=== PATIENT | female | born 1945 | race Caucasian/White ===

== ENCOUNTER → 2019-12-05 13:03 | Outpatient (BNVA) | payer MEDICARE, OTHER, SELFPAY | PROVIDERS: Family Provider Electrodiagnostic Medicine; PCP Nurse Practitioner; Visit Provider Specialist | DX: G47.33 Obstructive sleep apnea (adult) (pediatric) (principal); R41.89 Other symptoms and signs involving cognitive functions and awareness; Z86.73 Personal history of transient ischemic attack (TIA), and cerebral infarction without residual deficits; G40.309 Generalized idiopathic epilepsy and epileptic syndromes, not intractable, without status epilepticus; F03.90 Unspecified dementia, unspecified severity, without behavioral disturbance, psychotic disturbance, mood disturbance, and anxiety | CPT/HCPCS: 96116; 99215 ==

== ENCOUNTER → 2019-12-07 08:04 | Outpatient (BNVA) | payer MEDICARE, OTHER, SELFPAY | PROVIDERS: Family Provider Electrodiagnostic Medicine; PCP Nurse Practitioner; Visit Provider Specialist | DX: G40.909 Epilepsy, unspecified, not intractable, without status epilepticus (principal); G40.309 Generalized idiopathic epilepsy and epileptic syndromes, not intractable, without status epilepticus | CPT/HCPCS: 95816 ==

== ENCOUNTER 2019-12-08 12:38 | Emergency (ER) | payer MEDICARE, OTHER, SELFPAY ==
--- NOTE | 2019-12-08 12:39 | ED_ITS ---
Entered by Mady Bishop, acting as scribe for HPI - Altered Mental Status General: Chief Complaint: Neuro Symptoms/Deficit Stated Complaint: STROKE ALERT Time Seen by Provider: 12/08/19 12:40 Source: EMS Mode of arrival: EMS Limitations: language barrier and altered mental status History of Present Illness: HPI narrative: 73 yo female presents with stroke like symptoms, unable to talk but able to move all extremities. 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 pt has a hx of seizures. Initially we are unable to get any history from the patient history was derived from all records and then later from family members who were contacted and came to the emergency room. He states she had a similar episode a few months ago was sent to [facility] and while there she also was intubated after having a seizure. MD complaint: altered mental status, confusion, weakness and other (not s peaking) Onset (ago): minute(s) (30 minutes ago) Timing confirmed by: other (real estate officer) Severity: moderate Consistency of symptoms: Getting Worse Associated symptoms: Reports no associated symptoms Review of Systems General: Reports: ROS unobtainable due to medical condition and ROS unobtainable due to mental status PFS ED PFSH: Social History (Updated 12/08/19 @ 09:59 by Judy Goode RN) Smoking and tobacco status: unknown if ever smoked Physical Exam HENMT: COMMON NORMALS: normocephalic, head/scalp atraumatic, hearing grossly normal bilaterally, external ears normal, EAC's normal, TM's normal bilaterally, nasal mucous membranes and turbinates normal, moist oral mucous membranes and oropharynx normal HEAD & SCALP: normocephalic and atraumatic NOSE: nasal mucous membranes and turbinates normal EXTERNAL EAR: Yes external ears normal EXTERNAL AUDITORY CANAL: EAC's normal TYMPANIC MEMBRANE: TM's normal bilaterally Eye: COMMON NORMALS: PERRL, conjunctivae normal and no scleral icterus CONJUNCTIVA: Yes conjunctivae normal PUPIL: Yes PERRL Neck/C-Spine: COMMON NORMALS: no lymphadenopathy, supple and no JVD Lymph: LYMPHATIC: no lymphadenopathy noted and no lymphedema noted Resp: COMMON NORMALS: normal respiratory effort, no retractions, no use of accessory muscles and clear to auscultation bilaterally AUSCULTATION: clear to auscultation bilaterally Cardio: COMMON NORMALS: no JVD, regular rate, regular rhythm and no murmurs RATE: regular rate RHYTHM: regular rhythm GI: COMMON NORMALS: soft to palpation and no hepatosplenomegaly AUSCULTATION: Yes normoactive bowel sounds PALPATION: Yes soft, No tender, No guarding and Yes no hepatosplenomegaly Extremity: COMMON NORMALS: normal to inspection, normal capillary refill, no clubbing, cyanosis or edema and no calf tenderness Skin: COMMON NORMALS: no rashes or lesions noted GENERAL SKIN EXAM: no rashes or lesions noted Procedures Intubation sedative: Etomidate Mg Given: 30 paralytic: Succinylcholine Mg Given: 120 Laryngoscope: Gerard ET Tube Size: 8.5 ET Tube Uncuffed: No Tube Secured Depth (cm): 24 Tube Secured Location: teeth Tube Placement Confirmation: visualized tube passing through cords, equal breath sounds bilaterally and no breath sounds over epigastrium Patient Tolerated Procedure: well Intubation Complications: none Course ED course: Initially patient was brought in on a stroke alert initial scoring put her at a stroke score of 8-9 it was difficult to fully assess because she was not completely nonverbal. I reviewed her history found that she was on Eliquis and had previously had a stroke. CT showed a large area of old stroke nothing new no acute bleeds. While we are further assessing the patient and getting her stabilized she had a seizure. She was given 2 mg of Ativan and started on Keppra. During that time we also found in the old records she had been evaluated yesterday for seizures including an EEG. After the seizure patient had sonorous respirations ABG was done and pH was 7-3 before the results of the ABG because of her decreasing respiratory rate and difficulty maintaining an airway she was electively intubated using RSI. No complications intubation ABG showed a pH of 7-3 primarily respiratory acidosis. Patient did have one other seizure after that she was given more Ativan and also will increase her propofol which was started immediately after her intubation. Considered adding Dilantin but patient had just finished receiving the Keppra at that point. Patient also was in A. fib with rapid ventricular response we did for a time however on Cardizem however she came hypotensive we turned her Cardizem off her heart rate stayed in the 100-1 10 range during that time. Discussed with the family recommend transport by air ambulance to tertiary care center. She will need ICU along with neurology and likely need continuous EEG. None of these services are available at [facility]. Vital Signs: Vital signs: Vital Signs Pulse Rate 126 H 12/08/19 16:22 Respiratory Rate 16 12/08/19 16:22 Blood Pressure 111/65 12/08/19 16:22 Pulse Oximetry 99 12/08/19 16:22 MDM - Altered Mental Status Lab Data: Labs: Lab Results 12/08/19 12/08/19 12/08/19 Range/Units 12:47 13:11 13:11 WBC 12.6 H (4.0-10.0) 10^3/ uL RBC 4.29 (4.1-5.3) 10^6/u L Hgb 12.9 (11.5-15.3) g/dL Hct 43.0 (37.0-47.0) % MCV 100.2 H (81-99) fL MCH 30.1 (28.0-34.0) pg MCHC 30.0 (30.0-36.0) g/dL RDW 15.0 (12.1-15.1) % Plt Count 264 (130-400) 10^3/c mm MPV 11.1 H (7.4-10.4) fL Neut % (Auto) 47.7 % Lymph % (Auto) 42.2 % Bates % (Auto) 8.0 % Eos % (Auto) 1.0 % Baso % (Auto) 0.4 % Neut # (Auto) 6.0 (1.8-7.7) 10^3/u L Lymph # (Auto) 5.3 H (0.8-4.8) 10^3/u L Bates # (Auto) 1.0 H (0.2-0.9) 10^3/u L Eos # (Auto) 0.1 (0.0-0.8) 10^3/u L Baso # (Auto) 0.1 (0.0-0.1) 10^3/u L Nucleated RBC % (a uto) 0 % Nucleated RBCs # 0.0 /100WBC PT 15.60 H (10.5-13.3) SECO NDS INR 1.20 (0.8-1.2) APTT 26.1 (23.9-36.7) SECO NDS Specimen Type Sample Site ABG pH (7.35-7.45) ABG pCO2 (35-45) mmHg ABG pO2 (80.0-100.0) mmH g ABG HCO3 (22-26) mmol/L ABG O2 Saturation ABG Base Excess (-2.0-2.0) mmol/ L Bk Test A-a O2 Gradient (5-10) mmHg Hematocrit (37-47) % Hgb O2 Saturation (95-100) % Carboxyhemoglobin (0.4-20.1) %THgb Methemoglobin (0.4-1.5) % Total Hemoglobin (12-16) g/dL Ionized Calcium (1.1-1.4) mmol/L Respiration Rate % O2 Delivery Device FiO2 % Tidal Volume PEEP cmH20 Flight Steward ID Sodium (136-145) mmol/L Potassium (3.5-5.1) mmol/L Chloride (98-107) mmol/L Carbon Dioxide (22-29) mmol/L Anion Gap (5-19) BUN (8-23) mg/dL Creatinine (0.5-0.9) mg/dL Glucose (65-115) mg/dL POC Glucose 246 (70-110) mg/dL Calcium (8.5-10.5) mg/dL Total Bilirubin (0.15-1.2) mg/dL AST (0-32) U/L ALT (0-33) U/L Alkaline Phosphata se (35-105) IU/L Total Protein (6.6-8.7) g/dL Albumin (3.5-5.2) g/dL Globulin (1.3-4.6) g/dL Urine Color (Yellow) Urine Appearance (CLEAR) Urine pH (5-7) Ur Specific Gravit y (1.005-1.030) Urine Protein (Negative) Urine Glucose (UA) (Normal) Urine Ketones (Negative) Urine Occult Blood (Negative) Urine Nitrate (Negative) Urine Bilirubin (NEGATIVE) Urine Urobilinogen (Negative) mg/dL Ur Leukocyte Nadya ase (Negative) Urine RBC (0-2) /hpf Urine WBC (0-5) /hpf Ur Squamous Epith Cells (0-5) Urine Bacteria (NONE) Urine Mucus Urine Opiates Scre en (Negative) ng/mL Ur Barbiturates Sc reen (Negative) ng/mL Ur Phencyclidine S crn (Negative) ng/mL Ur Amphetamines Sc reen (Negative) ng/mL U Benzodiazepines Scrn (Negative) ng/mL Urine Cocaine Scre en (Negative) ng/mL U Marijuana (THC) Screen (Negative) ng/mL 12/08/19 12/08/19 12/08/19 Range/Units 13:11 13:40 13:40 WBC (4.0-10.0) 10^3/ uL RBC (4.1-5.3) 10^6/u L Hgb (11.5-15.3) g/dL Hct (37.0-47.0) % MCV (81-99) fL MCH (28.0-34.0) pg MCHC (30.0-36.0) g/dL RDW (12.1-15.1) % Plt Count (130-400) 10^3/c mm MPV (7.4-10.4) fL Neut % (Auto) % Lymph % (Auto) % Bates % (Auto) % Eos % (Auto) % Baso % (Auto) % Neut # (Auto) (1.8-7.7) 10^3/u L Lymph # (Auto) (0.8-4.8) 10^3/u L Bates # (Auto) (0.2-0.9) 10^3/u L Eos # (Auto) (0.0-0.8) 10^3/u L Baso # (Auto) (0.0-0.1) 10^3/u L Nucleated RBC % (a uto) % Nucleated RBCs # /100WBC PT (10.5-13.3) SECO NDS INR (0.8-1.2) APTT (23.9-36.7) SECO NDS Specimen Type Arterial Sample Site Radial, left ABG pH 7.24 L (7.35-7.45) ABG pCO2 54.9 H (35-45) mmHg ABG pO2 138.0 H (80.0-100.0) mmH g ABG HCO3 23.4 (22-26) mmol/L ABG O2 Saturation 98.9 ABG Base Excess -4.6 L (-2.0-2.0) mmol/ L Bk Test Pos A-a O2 Gradient 506.5 H (5-10) mmHg Hematocrit 39.0 (37-47) % Hgb O2 Saturation 96.9 (95-100) % Carboxyhemoglobin 1.0 (0.4-20.1) %THgb Methemoglobin 1.0 (0.4-1.5) % Total Hemoglobin 12.7 (12-16) g/dL Ionized Calcium 1.2 (1.1-1.4) mmol/L Respiration Rate 16.0 % O2 Delivery Device Vent FiO2 100.0 % Tidal Volume 0.45 PEEP 8.0 cmH20 Flight Steward ID cak Sodium 141 142.0 (136-145) mmol/L Potassium 3.5 3.8 (3.5-5.1) mmol/L Chloride 95 L (98-107) mmol/L Carbon Dioxide 23 (22-29) mmol/L Anion Gap 26.5 H (5-19) BUN 18 (8-23) mg/dL Creatinine 0.9 (0.5-0.9) mg/dL Glucose 290 H 271.0 H (65-115) mg/dL POC Glucose (70-110) mg/dL Calcium 10.4 (8.5-10.5) mg/dL Total Bilirubin 0.4 (0.15-1.2) mg/dL AST 29 (0-32) U/L ALT 52 H (0-33) U/L Alkaline Phosphata se 94 (35-105) IU/L Total Protein 7.7 (6.6-8.7) g/dL Albumin 4.6 (3.5-5.2) g/dL Globulin 3.1 (1.3-4.6) g/dL Urine Color Yellow (Yellow) Urine Appearance Clear (CLEAR) Urine pH 5.0 (5-7) Ur Specific Gravit y 1.015 (1.005-1.030) Urine Protein Trace (Negative) Urine Glucose (UA) Trace H (Normal) Urine Ketones Negative (Negative) Urine Occult Blood Neg (Negative) Urine Nitrate Negative (Negative) Urine Bilirubin Neg (NEGATIVE) Urine Urobilinogen Norm (Negative) mg/dL Ur Leukocyte Nadya ase Negative (Negative) Urine RBC None (0-2) /hpf Urine WBC None (0-5) /hpf Ur Squamous Epith Cells 0-4 H (0-5) Urine Bacteria Trace (NONE) Urine Mucus Trace Urine Opiates Scre en (Negative) ng/mL Ur Barbiturates Sc reen (Negative) ng/mL Ur Phencyclidine S crn (Negative) ng/mL Ur Amphetamines Sc reen (Negative) ng/mL U Benzodiazepines Scrn (Negative) ng/mL Urine Cocaine Scre en (Negative) ng/mL U Marijuana (THC) Screen (Negative) ng/mL 12/08/19 12/08/19 Range/Units 13:40 14:57 WBC (4.0-10.0) 10^3/ uL RBC (4.1-5.3) 10^6/u L Hgb (11.5-15.3) g/dL Hct (37.0-47.0) % MCV (81-99) fL MCH (28.0-34.0) pg MCHC (30.0-36.0) g/dL RDW (12.1-15.1) % Plt Count (130-400) 10^3/c mm MPV (7.4-10.4) fL Neut % (Auto) % Lymph % (Auto) % Bates % (Auto) % Eos % (Auto) % Baso % (Auto) % Neut # (Auto) (1.8-7.7) 10^3/u L Lymph # (Auto) (0.8-4.8) 10^3/u L Bates # (Auto) (0.2-0.9) 10^3/u L Eos # (Auto) (0.0-0.8) 10^3/u L Baso # (Auto) (0.0-0.1) 10^3/u L Nucleated RBC % (a uto) % Nucleated RBCs # /100WBC PT (10.5-13.3) SECO NDS INR (0.8-1.2) APTT (23.9-36.7) SECO NDS Specimen Type Arterial Sample Site Radial, left ABG pH 7.29 L (7.35-7.45) ABG pCO2 52.4 H (35-45) mmHg ABG pO2 71.4 L (80.0-100.0) mmH g ABG HCO3 24.9 (22-26) mmol/L ABG O2 Saturation 91.6 ABG Base Excess -2.3 L (-2.0-2.0) mmol/ L Bk Test Pos A-a O2 Gradient 362.9 H (5-10) mmHg Hematocrit 36.2 L (37-47) % Hgb O2 Saturation 89.6 L (95-100) % Carboxyhemoglobin 1.2 (0.4-20.1) %THgb Methemoglobin 1.0 (0.4-1.5) % Total Hemoglobin 11.8 L (12-16) g/dL Ionized Calcium 1.2 (1.1-1.4) mmol/L Respiration Rate 14.0 % O2 Delivery Device Vent FiO2 70.0 % Tidal Volume 0.45 PEEP 8.0 cmH20 Flight Steward ID amh Sodium 141.0 (136-145) mmol/L Potassium 3.5 (3.5-5.1) mmol/L Chloride (98-107) mmol/L Carbon Dioxide (22-29) mmol/L Anion Gap (5-19) BUN (8-23) mg/dL Creatinine (0.5-0.9) mg/dL Glucose 269.0 H (65-115) mg/dL POC Glucose (70-110) mg/dL Calcium (8.5-10.5) mg/dL Total Bilirubin (0.15-1.2) mg/dL AST (0-32) U/L ALT (0-33) U/L Alkaline Phosphata se (35-105) IU/L Total Protein (6.6-8.7) g/dL Albumin (3.5-5.2) g/dL Globulin (1.3-4.6) g/dL Urine Color (Yellow) Urine Appearance (CLEAR) Urine pH (5-7) Ur Specific Gravit y (1.005-1.030) Urine Protein (Negative) Urine Glucose (UA) (Normal) Urine Ketones (Negative) Urine Occult Blood (Negative) Urine Nitrate (Negative) Urine Bilirubin (NEGATIVE) Urine Urobilinogen (Negative) mg/dL Ur Leukocyte Nadya ase (Negative) Urine RBC (0-2) /hpf Urine WBC (0-5) /hpf Ur Squamous Epith Cells (0-5) Urine Bacteria (NONE) Urine Mucus Urine Opiates Scre en Negative (Negative) ng/mL Ur Barbiturates Sc reen Negative (Negative) ng/mL Ur Phencyclidine S crn Negative (Negative) ng/mL Ur Amphetamines Sc reen Negative (Negative) ng/mL U Benzodiazepines Scrn Negative (Negative) ng/mL Urine Cocaine Scre en Negative (Negative) ng/mL U Marijuana (THC) Screen Negative (Negative) ng/mL Imaging Data^: CT Head: Radiologist's impression: [address] [address] [address] Scan Report Signed Patient: Finn Goode #: [id number] : 8Acct#:[id number] Age/Sex: 73 / FADM Date: 12/08/19 Loc: ERRoom/Bed: Attending Dr: Ordering Provider/Ordering MD: Joe Lofton DO Date of Service: 12/08/19 Procedure(s): CT head wo con* [id number] Accession Number(s): [id number] Report Number: [id number] WS: [id number] CT HEAD NONCONTRAST HISTORY: CVA TECHNIQUE: Contiguous axial imaging performed through the brain in 2.5 mm imaging. Bone and soft tissue windows. Sagittal and coronal reformats reviewed. All CT scans at [facility] use at least one of these dose optimization techniques: automated exposure control; mA and/or kV adjustment per patient size (includes targeted exams where dose is matched to clinical indication); or iterative reconstruction. DLP: 818.05 mGy-cm. COMPARISON: 10/03/2019 No acute intracranial hemorrhage, midline shift or mass effect. Large prior LEFT parietal infarct with encephalomalacia. Additional smaller chronic infarct in the RIGHT cerebellum. Ventricles: Normal size with no hydrocephalus. No inferior displacement of cerebellar tonsils. Paranasal sinuses: As visualized are clear. Mastoid air cells: Well pneumatized. Calvarium and scalp: Hyperostosis frontalis interna. Notified Joe Lofton DO at 12/08/2019 12:[address]/CT head wo con* [id number] IMPRESSION: 1. No acute intracranial hemorrhage or edema. 2. Remote large LEFT parietal and smaller RIGHT cerebellar infarcts. Dictated By:Jelly Salamanca DO Signed By:Jelly Salamanca DOSigned Date/Time:12/08/19 1253 Critical Care Time Critical Care Time: Critical Care Time: Yes Total Critical Care Time: 60 Attestation: This case had a high probability of a clinically significant, sudden, or life threatening deterioration of this patient's condition which required my full and direct attention, intervention and personal management. Discharge Plan Discharge Patient Disposition: Transfer to ED Clinical Impression: Generalized seizure disorder, Severe obstructive sleep apnea, Cerebrovascular accident Prescriptions: No Action Eliquis 5 mg tablet 5 mg PO BID RF: 0 diltiazem HCl [Cardizem CD] 120 mg capsule,extended release 24hr 120 mg PO QAM RF: 0 Advair HFA 115-21 mcg/actuation HFA aerosol inhaler 2 puff INHALATION Q12H RF: 0 lisinopril 10 mg tablet 10 mg PO DAILY RF: 0 omeprazole 20 mg capsule,delayed release(DR/EC) 20 mg PO DAILY RF: 0 digoxin 62.5 mcg (0.0625 mg) tablet 125 mcg PO DAILY RF: 0 hydrochlorothiazide 25 mg tablet 25 mg PO DAILY RF: 0 potassium gluconate 595 mg (99 mg) tablet 595 mg PO DAILY RF: 0 aspirin [Adult Low Dose Aspirin] 81 mg tablet,delayed release (DR/EC) 81 mg PO DAILY RF: 0 biotin 5 mg capsule 5 mg PO DAILY RF: 0 prenat.vits,migdalia,[id number] Tablet 1 tab PO DAILY RF: 0 albuterol sulfate [Ventolin HFA] 90 mcg/actuation HFA aerosol inhaler 2 puff INHALATION Q6H PRN (Reason: Shortness Of Breath) RF: 0 metoprolol tartrate 25 mg tablet 50 mg PO BID Qty: 120 RF: 1 escitalopram oxalate [Lexapro] 10 mg tablet 10 mg PO DAILY RF: 0 alprazolam 0.25 mg tablet 0.25 mg PO BID RF: 0 levothyroxine 150 mcg tablet 150 mcg PO DAILY RF: 0 metformin 1,000 mg tablet extended release 24hr 1,000 mg PO BID RF: 0 glimepiride 4 mg tablet 4 mg PO QAM RF: 0 simvastatin 40 mg tablet 40 mg PO DAILY RF: 0 (DME) BIPAP MACHINE Qty: 1 RF: 0 (DME) BIPAP MASK Qty: 1 RF: 2 (DME) BIPAP SUPPLIES Qty: 1 RF: 2 Referrals: Milton Rodriguez, [Primary Care Provider] - Interventions: ED Discharge Assessment Last Done: 12/08/19 16:22 Discharge Date/Time: 12/08/19 17:05 Coding Level of Care Code ED Central Office Supervisor for Chg Fwd The documentation recorded by the Dario tsai Bridget Annette, accurately reflects the service I personally performed and the decisions made by Rolly alexis Curtis L, DO Dec 08, 2019 12:38
--- NOTE | 2019-12-08 12:43 | CT_ITS ---
WS: [id number] CT HEAD NONCONTRAST HISTORY: CVA TECHNIQUE: Contiguous axial imaging performed through the brain in 2.5 mm imaging. Bone and soft tiss ue windows. Sagittal and coronal reformats reviewed. All CT scans at [facility] use at ast one of these dose optimization techniques: automated exposure control; mA and/or kV adjustment pe r patient size (includes targeted exams where dose is matched to clinical indication); or iterative r econstruction. DLP: 818.05 mGy-cm. COMPARISON: 10/03/2019 No acute intracranial hemorrhage, midline shift or mass effect. Large prior LEFT parietal infarct with encephalomalacia. Additional smaller chronic infarct in the RI GHT cerebellum. Ventricles: Normal size with no hydrocephalus. No inferior displacement of cerebellar tonsils. Paranasal sinuses: As visualized are clear. Mastoid air cells: Well pneumatized. Calvarium and scalp: Hyperostosis frontalis interna. Notified Joe Lofton DO at 12/08/2019 12:[address]/CT head wo con* [id number] IMPRESSION: 1. No acute intracranial hemorrhage or edema. 2. Remote large LEFT parietal and smaller RIGHT cerebellar infarcts.
[2019-12-08 12:44] VITALS: BP 173/140; PULSE 121; RESP 18; O2SAT 85
[2019-12-08 12:54] VITALS: O2SAT 96
[2019-12-08 13:00] LABS: Glucose Point of Care 246 mg/dL (70-110)
--- NOTE | 2019-12-08 13:02 | ECG_ITS ---
Measurements Intervals [place] Rate: 128 P: GA: 0 QRS: 59 QRSD: 100 T: -82 QT: 293 QTc: 428 ATRIAL FLUTTER/TACHYCARDIA WITH RAPID VENTRICULAR RESPONSE ANTEROSEPTAL MYOCARDIAL INFARCTION , OF INDETERMINATE AGE [40+ ms Q WAVE IN V1-V4] MODERATE T-WAVE ABNORMALITY, CONSIDER INFERIOR ISCHEMIA [-0.1+ mV T WAVE IN II/ II/aVF] INTERPRETATION BASED ON A DEFAULT AGE OF 40 YEARS Compared to ECG 10/03/2019 01:01:56 Myocardial infarct finding now present T-wave abnormality now present Possible ischemia now present Atrial fibrillation no longer present ST (T wave) deviation no longer present Electronically Signed On 12-08-2019 20:48:02 MANAGER OF EMPLOYEE RELATIONS by Oanh Caballero M.D. [email or web address]
[2019-12-08] MEDS: LORazepam 2 mg/mL INJ 1 mL (13:04)
[2019-12-08] MEDS: succinylcholine 20 mg/mL SDV 10mL 120 MG IVP (13:21)
[2019-12-08 13:24] LABS: Basophils # 0.1 10^3/uL (0.0-0.1); Basophils % 0.4 %; Eosinophils # 0.1 10^3/uL (0.0-0.8); Hemoglobin 12.9 g/dL (11.5-15.3); Lymphocytes # 5.3 10^3/uL (0.8-4.8); Lymphocytes % 42.2 %; Mean Corpuscular Hemoglobin 30.1 pg (28.0-34.0); Mean Corpuscular Volume 100.2 fL (81-99); Mean Platelet Volume 11.1 fL (7.4-10.4); Neutrophils % 47.7 %; Nucleated Red Blood Cells % 0 %; Platelet Count 264 10^3/cmm (130-400); Red Blood Count 4.29 10^6/uL (4.1-5.3); White Blood Count 12.6 10^3/uL (4.0-10.0)
[2019-12-08 13:33] LABS: Partial Thromboplastin Time 26.1 SECONDS (23.9-36.7)
[2019-12-08 13:38] LABS: Alanine Aminotransferase 52 U/L (0-33); Albumin Level 4.6 g/dL (3.5-5.2); Alkaline Phosphatase 94 IU/L (35-105); Anion Gap 26.5 (5-19); Aspartate Amino Transferase 29 U/L (0-32); Blood Urea Nitrogen 18 mg/dL (8-23); Calcium 10.4 mg/dL (8.5-10.5); Carbon Dioxide 23 mmol/L (22-29); Chloride 95 mmol/L (98-107); Creatinine Clr Calc Pharmacy 61.7624; Globulin 3.1 g/dL (1.3-4.6); Glucose 290 mg/dL (65-115); Potassium 3.5 mmol/L (3.5-5.1); Sodium 141 mmol/L (136-145); Total Bilirubin 0.4 mg/dL (0.15-1.2); Total Protein 7.7 g/dL (6.6-8.7)
[2019-12-08 13:39] VITALS: RESP 16
[2019-12-08] MEDS: propofol 1,000 MG/100 ML INJ 4.9 MG IV (13:49)
[2019-12-08] MEDS: sodium chloride 0.9% 100 ML (13:51)
[2019-12-08 13:52] LABS: ABG PCO2 54.9 mmHg (35-45); ABG PH Result 7.24 (7.35-7.45); Alveolar-Arterial Oxygen Gradi 506.5 mmHg (5-10); Base Excess ABG -4.6 mmol/L (-2.0-2.0); Blood Gas Allen Test Pos; Blood Gas Sample Site Radial, left; Blood Gas Sample Type Arterial; Blood Gas Tidal Volume 0.45; HCO3 ABG 23.4 mmol/L (22-26); HGB O2 Sat 96.9 % (95-100); Ionized Calcium Level - ABG 1.2 mmol/L (1.1-1.4); Oxygen Device VENT; Oxygen Saturation ABG 98.9; Potassium Level - ABG 3.8 mmol/L (3.5-5.0); Total Hemoglobin 12.7 g/dL (12-16)
[2019-12-08 14:01] LABS: Add Urine Microscopic? YES; Bilirubin Urine Neg (NEGATIVE); Blood Urine Neg (Negative); Glucose Urine UA Trace (Normal); Ketones Urine Negative (Negative); Leukocyte Esterase Urine Negative (Negative); Nitrate Urine Negative (Negative); Protein Urine Trace (Negative); Specific Gravity, Urine 1.015 (1.005-1.030); Urine Appearance Clear (CLEAR); Urine Color Yellow (Yellow); Urobilinogen Urine Norm (Negative)
[2019-12-08 14:05] VITALS: BP 102/81; PULSE 127; RESP 14; O2SAT 94
[2019-12-08 14:15] LABS: Add Urine Culture? No; Bacteria Urine TRACE; Mucus Urine TRACE; Squamous Epithelial Cell Urine 0-4 (0-5)
[2019-12-08 14:18] LABS: Amphetamines Screen Urine Negative (Negative); Barbiturates Screen Urine Negative (Negative); Benzodiazepines Screen Urine Negative (Negative); Cocaine Screen Urine Negative (Negative); Opiate Screen Urine Negative (Negative); PCP Screen Urine Negative (Negative); THC Screen Urine Negative (Negative)
--- NOTE | 2019-12-08 14:18 | XR_ITS ---
WS: [id number] PORTABLE CHEST HISTORY: dyspnea/cough COMPARISON: 10/02/2019 Endotracheal tube has been placed in good position and extends just below the clavicular heads. Mild interstitial edema throughout both lungs. Thickening along the RIGHT minor fissure. Small bilate ral pleural effusions. Cardiac size: Moderately enlarged cardiac silhouette. Mediastinum/Aorta: Mild atherosclerosis aorta. Mediastinum is prominent. Calcifications in aorta. Ate lectasis adjacent to the aortic arch. No osseous abnormality seen. XR/XR chest 1V portable [id number] IMPRESSION: 1. Endotracheal tube in good position. 2. Moderately enlarged cardiac silhouette with mediastinal widening. Mediastin al widening is probably due to supine positioning and portable technique. 3. Mild interstitial edema and fluid overload.
[2019-12-08] MEDS: LORazepam 2 mg/mL INJ 1 mL IVP (14:53)
[2019-12-08 15:32] VITALS: RESP 14
[2019-12-08 15:33] LABS: ABG PCO2 52.4 mmHg (35-45); ABG PH Result 7.29 (7.35-7.45); Alveolar-Arterial Oxygen Gradi 362.9 mmHg (5-10); Arterial Blood Gas Hematocrit 36.2 % (37-47); Base Excess ABG -2.3 mmol/L (-2.0-2.0); Blood Gas Allen Test Pos; Blood Gas Operator Identificat amh; Blood Gas Sample Site Radial, left; Blood Gas Sample Type Arterial; Blood Gas Tidal Volume 0.45; Carboxyhemoglobin 1.2 %THgb (0.4-20.1); HCO3 ABG 24.9 mmol/L (22-26); HGB O2 Sat 89.6 % (95-100); Ionized Calcium Level - ABG 1.2 mmol/L (1.1-1.4); Oxygen Device VENT; Oxygen Saturation ABG 91.6; PO2 ABG 71.4 mmHg (80.0-100.0); Potassium Level - ABG 3.5 mmol/L (3.5-5.0); Total Hemoglobin 11.8 g/dL (12-16)
[2019-12-08 16:22] VITALS: BP 111/65; PULSE 126; RESP 16; O2SAT 99
== END 2019-12-08 17:05 ==
PROVIDERS: Emergency Provider Family Medicine; Family Provider Electrodiagnostic Medicine; PCP Electrodiagnostic Medicine
DX: G40.409 Other generalized epilepsy and epileptic syndromes, not intractable, without status epilepticus (principal); G47.33 Obstructive sleep apnea (adult) (pediatric); Z79.01 Long term (current) use of anticoagulants; Z86.73 Personal history of transient ischemic attack (TIA), and cerebral infarction without residual deficits
CPT/HCPCS: 36415; 36416; 36600; 51702; 70450; 71045; 80051; 80053; 80307; 81001; 82810; 82962; 83986; 85025; 85610; 85730; 93005; 94002; 94799; 96365; 96366; 96375; 99284; 99291; J0330; J1953; J2060; J2704; J3490

== ENCOUNTER 2019-12-29 10:59 | Inpatient (IN) | payer MEDICARE, OTHER, SELFPAY ==
[2019-12-29] VITALS (12 sets, daily range): BP systolic 105–150; BP diastolic 56–89; PULSE 31–93; RESP 14–27; TEMP 36.7–36.8; O2SAT 86–98; BMI 35.7
--- NOTE | 2019-12-29 11:00 | ED_ITS ---
Entered by Kellen Rooney, acting as scribe for Joe Lofton DO HPI - Weakness General: Chief complaint: Weakness Stated complaint: WEAKNESS/ N/V/ LOW HR Time Seen by Provider: 12/29/19 11:00 Source: patient, EMS and RN notes reviewed Mode of arrival: EMS Limitations: no limitations PFSH ED PFSH: Social History (Updated 12/08/19 @ 09:59 by Judy Goode RN) Smoking and tobacco status: unknown if ever smoked Discharge Plan Discharge Prescriptions: No Action Eliquis 5 mg tablet 5 mg PO BID RF: 0 diltiazem HCl [Cardizem CD] 120 mg capsule,extended release 24hr 120 mg PO QAM RF: 0 Advair HFA 115-21 mcg/actuation HFA aerosol inhaler 2 puff INHALATION Q12H RF: 0 lisinopril 10 mg tablet 10 mg PO DAILY RF: 0 omeprazole 20 mg capsule,delayed release(DR/EC) 20 mg PO DAILY RF: 0 digoxin 62.5 mcg (0.0625 mg) tablet 125 mcg PO DAILY RF: 0 hydrochlorothiazide 25 mg tablet 25 mg PO DAILY RF: 0 potassium gluconate 595 mg (99 mg) tablet 595 mg PO DAILY RF: 0 aspirin [Adult Low Dose Aspirin] 81 mg tablet,delayed release (DR/EC) 81 mg PO DAILY RF: 0 biotin 5 mg capsule 5 mg PO DAILY RF: 0 prenat.vits,migdalia,[id number] Tablet 1 tab PO DAILY RF: 0 albuterol sulfate [Ventolin HFA] 90 mcg/actuation HFA aerosol inhaler 2 puff INHALATION Q6H PRN (Reason: Shortness Of Breath) RF: 0 metoprolol tartrate 25 mg tablet 50 mg PO BID Qty: 120 RF: 1 escitalopram oxalate [Lexapro] 10 mg tablet 10 mg PO DAILY RF: 0 alprazolam 0.25 mg tablet 0.25 mg PO BID RF: 0 levothyroxine 150 mcg tablet 150 mcg PO DAILY RF: 0 metformin 1,000 mg tablet extended release 24hr 1,000 mg PO BID RF: 0 glimepiride 4 mg tablet 4 mg PO QAM RF: 0 simvastatin 40 mg tablet 40 mg PO DAILY RF: 0 (DME) BIPAP MACHINE Qty: 1 RF: 0 (DME) BIPAP MASK Qty: 1 RF: 2 (DME) BIPAP SUPPLIES Qty: 1 RF: 2 Coding Level of Care Code ED Health Professor for Morgan Sanchez
--- NOTE | 2019-12-29 11:03 | ED_ITS ---
Entered by Kellen Rooney, acting as scribe for Flori South [place] HPI - Weakness General: Chief complaint: Weakness Stated complaint: WEAKNESS/ N/V/ LOW HR Time Seen by Provider: 12/29/19 11:00 Source: patient, EMS and RN notes reviewed Mode of arrival: EMS Limitations: no limitations History of Present Illness: HPI Narrative: 74 yo female presents to ED with c omplaints of bradycardia and shortness of breath. The patient states her SOB is worse with exertion. She said she has not been feeling well the last couple of days with dizziness and nausea. She said she does not use oxygen at home. Her PCP is Dr Rodriguez, Senior Treasury Consultant - Dr Guzman. She was recently at [facility] for seizures and a stroke. The patient does states she took her medications this morning. She denies any chest pain but does state that her shortness of breath is worse with exertion. She does not believe she has any increased edema or swelling of her legs. MD Complaint: generalized weakness Onset (ago): day(s) (2) Duration: constant Location: generalized Migration: none Severity: moderate Quality: other (weakness) Relieving factors: none Exacerbating factors: exertion Context: recent illness Associated symptoms: Reports nausea; Denies chest pain, chills, confusion, diaphoresis, dysuria, easy bruising, fever(s), headache(s) or syncope Review of Systems General: Reports: other (negative unless marked) Const: Denies: fever, chills, body aches, fatigue, malaise or diaphoresis Eyes: Denies: change in vision or blurry vision ENMT: Denies: throat pain, painful swallowing, hoarseness, ear pain, ear discharge, Change in hearing or nasal discharge Card: Reports: irregular heart rhythm, lightheadedness and shortness of breath on exertion; Denies: chest pain, palpitations, edema, syncope, pre-syncope or shortness of breath when lying down Resp: Reports: shortness of breath; Denies: productive cough, non-productive cough, wheezing, coughing up blood or chest congestion GI: Reports: nausea : Denies: flank pain, painful urination, urinary frequency, urinary urgency, decreased urine ouput, urinary incontinence or blood in urine Musc: Denies: neck pain, back pain, extremity pain, extremity swelling, joint pain, joint swelling, joint warmth or joint stiffness Skin/Breast: Denies: rash, skin tenderness or yellow skin Neuro: Denies: headache, numbness in extremities, weakness in extremities, changes in sensation, lack of coordination, difficulty walking, dizziness, vertigo or confusion Endo: Denies: excessive thirst, tired all the time, cold intolerance, excessive sweating, flushing or hot flashes Trung/Lymph: Denies: easy bruising, easy bleeding, petechiae or enlarged lymph nodes All/Imm: Denies: hives, throat swelling, tongue swelling, facial swelling or acute wheezing PFSH ED PFSH: Family History Sister Diabetes Father Heart disease Mother Heart disease Social History Smoking and tobacco status: never smoked Physical Exam Const: COMMON NORMALS: no apparent distress, oriented x3, no limitations, healthy appearing and well nourished EXAM LIMITATIONS: no altered mental status GENERAL APPEARANCE: cooperative, well kempt and well developed ORIENTATION/CONSCIOUSNESS: Yes awake HENMT: COMMON NORMALS: normocephalic, head/scalp atraumatic, hearing grossly normal bilaterally, external ears normal, EAC's normal, external nose normal and moist oral mucous membranes HEAD & SCALP: normal to inspection, normocephalic and atraumatic FACE & SINUS: normal facial exam and face symmetric NOSE: external nose normal and nares normal EXTERNAL EAR: Yes external ears normal EXTERNAL AUDITORY CANAL: EAC's normal MOUTH: oral and palatal mucosa normal and tongue normal Eye: COMMON NORMALS: PERRL, EOMs intact bilaterally, conjunctivae normal and no scleral icterus GENERAL EYE: normal appearance of both eyes and normal light reflex CONJUNCTIVA: Yes conjunctivae normal SCLERA: sclerae normal CORNEA: Yes corneas normal PUPIL: Yes PERRL DIRECT OPHTHALMOSCOPY: Yes normal light reflex Neck/C-Spine: COMMON NORMALS: full ROM, no lymphadenopathy, supple, no meningeal signs and no JVD GENERAL: Yes normal visual inspection and Yes trachea midline CERVICAL SPINE: Yes cervical ROM normal Chest: COMMONS NORMALS: inspection of chest normal and palpation of chest normal Resp: COMMON NORMALS: normal respiratory effort, no retractions, no use of accessory muscles and clear to auscultation bilaterally EFFORT & INSPECTION: Yes able to speak in complete sentences AUSCULTATION: clear to auscultation bilaterally Cardio: COMMON NORMALS: no JVD, S1 normal heart sound, S2 normal heart sound, no gallops, no clicks, no murmurs and no rub JUGULAR VENOUS DISTENTION: no JVD RATE: bradycardic RHYTHM: abnormal rhythm irregularly irregular HEART SOUNDS: S1 normal and S2 normal GI: COMMON NORMALS: soft to palpation, non-tender, no hepatosplenomegaly and no masses INSPECTION: Yes normal to inspection PALPATION: Yes soft and Yes no hepatosplenomegaly : COMMON NORMALS: Yes no CVA tenderness BLADDER/KIDNEY EXAM: Yes no CVA tenderness Back/Pelvis: COMMON NORMALS: no CVA tenderness, thoracic and lumbar spine normal to inspection, no thoracic nor lumbar tenderness and thoraco-lumbar ROM normal Extremity: COMMON NORMALS: normal to inspection, full ROM, normal capillary refill, no joint enlargement, no clubbing, cyanosis or edema and no calf tenderness Neuro: COMMON NORMALS: oriented x3, CN's II-XII intact bilaterally, moves all extremities, no focal motor deficits and no sensory deficits noted MENINGEAL SIGNS: Yes no meningeal signs Psych: COMMON NORMALS: mental status grossly normal, thought process normal, cooperative, affect normal, speech normal and activity/motor behavior normal APPEARANCE: Yes well kempt SPEECH: Yes normal speech THOUGHT PROCESS: normal thought process Skin: COMMON NORMALS: no rashes or lesions noted, skin turgor normal, no jaundice, no petechiae and no mottling GENERAL SKIN EXAM: no rashes or lesi ons noted and turgor normal Course Vital Signs: Vital signs: Vital Signs Temperature 98.3 F 12/29/19 22:00 Pulse Rate 71 12/29/19 22:00 Respiratory Rate 27 H 12/29/19 22:00 Blood Pressure 145/67 12/29/19 22:00 Pulse Oximetry 92 12/29/19 22:00 MDM - Weakness MDM Narrative: Medical decision making narrative: The patient has remained sta ble since arrival with a heart rate in the 30s. I have not had intravenous her blood pressures been good and she is asymptomatic as long as she is at rest. She is on multiple rate limiting medications including digoxin, diltiazem and metoprolol. It is believed these medications have been her scheduled medications for quite some time it is unclear why she has had a sudden increase sensitivity. Her digoxin level is low so I do not believe she is dig toxic. She did unfortunately take her medications this morning so I believe they will still continue to have a effect for a while. I reviewed the case with Dr. Goldsmith who is agreeable to consult and will be consulted. He recommends holding all these agents and starting dopamine. The hope is to maintain a heart rate in the 60s. We will initiate dopamine here in the ER. I did review the case with Dr. Nunes who is agreeable to admission. He will see the patient in the hospital and the patient will be admitted to the ICU. The patient's magnesium will be replaced as well. Lab Data: Attestation: I reviewed the patient's lab results. Labs: Lab Results 12/29/19 12/29/19 12/29/19 Range/Units 11:12 11:12 11:12 WBC 12.7 H (4.0-10.0) 10^3/ uL RBC 4.07 L (4.1-5.3) 10^6/u L Hgb 11.8 (11.5-15.3) g/dL Hct 39.1 (37.0-47.0) % MCV 96.1 (81-99) fL MCH 29.0 (28.0-34.0) pg MCHC 30.2 (30.0-36.0) g/dL RDW 14.1 (12.1-15.1) % Plt Count 264 (130-400) 10^3/c mm MPV 11.2 H (7.4-10.4) fL Neut % (Auto) 78.6 % Lymph % (Auto) 16.2 % [place] % (Auto) 3.7 % Eos % (Auto) 0.6 % Baso % (Auto) 0.5 % Neut # (Auto) 10.0 H (1.8-7.7) 10^3/u L Lymph # (Auto) 2.1 (0.8-4.8) 10^3/u L [place] # (Auto) 0.5 (0.2-0.9) 10^3/u L Eos # (Auto) 0.1 (0.0-0.8) 10^3/u L Baso # (Auto) 0.1 (0.0-0.1) 10^3/u L Nucleated RBC % (a uto) 0 % Nucleated RBCs # 0.0 /100WBC PT 20.10 H (10.5-13.3) SECO NDS INR 1.65 H (0.8-1.2) Sodium 135 L (136-145) mmol/L Potassium 4.7 (3.5-5.1) mmol/L Chloride 96 L (98-107) mmol/L Carbon Dioxide 22 (22-29) mmol/L Anion Gap 21.7 H (5-19) BUN 22 (8-23) mg/dL Creatinine 1.3 H (0.5-0.9) mg/dL Glucose 484 H (65-115) mg/dL Estimat Average Gl ucose Hemoglobin A1c (4.0-6.0) % Calcium 9.6 (8.5-10.5) mg/dL Magnesium 1.3 L (1.7-2.3) mg/dL Total Bilirubin 0.4 (0.15-1.2) mg/dL AST 27 (0-32) U/L ALT 25 (0-33) U/L Alkaline Phosphata se 78 (35-105) IU/L Troponin T Baselin e (0-10) ng/mL NT-Pro-B Natriuret Pep 1913 H (0-125) pg/mL Total Protein 6.1 L (6.6-8.7) g/dL Albumin 3.8 (3.5-5.2) g/dL Globulin 2.3 (1.3-4.6) g/dL TSH (0.27-4.20) uIU/ mL Urine Color (Yellow) Urine Appearance (CLEAR) Urine pH (5-7) Ur Specific Gravit y (1.005-1.030) Urine Protein (Negative) Urine Glucose (UA) (Normal) Urine Ketones (Negative) Urine Blood (Negative) Urine Nitrate (Negative) Urine Bilirubin (NEGATIVE) Urine Urobilinogen (Negative) mg/dL Ur Leukocyte Nadya ase (Negative) Urine RBC (0-2) /hpf Urine WBC (0-5) /hpf Ur Squamous Epith Cells (0-5) Urine Bacteria (NONE) Urine Mucus Digoxin 0.5 L (0.6-1.2) ng/mL 12/29/19 12/29/19 12/29/19 Range/Units 11:12 11:12 11:12 WBC (4.0-10.0) 10^3/ uL RBC (4.1-5.3) 10^6/u L Hgb (11.5-15.3) g/dL Hct (37.0-47.0) % MCV (81-99) fL MCH (28.0-34.0) pg MCHC (30.0-36.0) g/dL RDW (12.1-15.1) % Plt Count (130-400) 10^3/c mm MPV (7.4-10.4) fL Neut % (Auto) % Lymph % (Auto) % [place] % (Auto) % Eos % (Auto) % Baso % (Auto) % Neut # (Auto) (1.8-7.7) 10^3/u L Lymph # (Auto) (0.8-4.8) 10^3/u L [place] # (Auto) (0.2-0.9) 10^3/u L Eos # (Auto) (0.0-0.8) 10^3/u L Baso # (Auto) (0.0-0.1) 10^3/u L Nucleated RBC % (a uto) % Nucleated RBCs # /100WBC PT (10.5-13.3) SECO NDS INR (0.8-1.2) Sodium (136-145) mmol/L Potassium (3.5-5.1) mmol/L Chloride (98-107) mmol/L Carbon Dioxide (22-29) mmol/L Anion Gap (5-19) BUN (8-23) mg/dL Creatinine (0.5-0.9) mg/dL Glucose (65-115) mg/dL Estimat Average Gl ucose 192 Hemoglobin A1c 8.3 H (4.0-6.0) % Calcium (8.5-10.5) mg/dL Magnesium (1.7-2.3) mg/dL Total Bilirubin (0.15-1.2) mg/dL AST (0-32) U/L ALT (0-33) U/L Alkaline Phosphata se (35-105) IU/L Troponin T Baselin e 9 (0-10) ng/mL NT-Pro-B Natriuret Pep (0-125) pg/mL Total Protein (6.6-8.7) g/dL Albumin (3.5-5.2) g/dL Globulin (1.3-4.6) g/dL TSH 11.26 H (0.27-4.20) uIU/ mL Urine Color (Yellow) Urine Appearance (CLEAR) Urine pH (5-7) Ur Specific Gravit y (1.005-1.030) Urine Protein (Negative) Urine Glucose (UA) (Normal) Urine Ketones (Negative) Urine Blood (Negative) Urine Nitrate (Negative) Urine Bilirubin (NEGATIVE) Urine Urobilinogen (Negative) mg/dL Ur Leukocyte Nadya ase (Negative) Urine RBC (0-2) /hpf Urine WBC (0-5) /hpf Ur Squamous Epith Cells (0-5) Urine Bacteria (NONE) Urine Mucus Digoxin (0.6-1.2) ng/mL 12/29/19 Range/Units 12:41 WBC (4.0-10.0) 10^3/ uL RBC (4.1-5.3) 10^6/u L Hgb (11.5-15.3) g/dL Hct (37.0-47.0) % MCV (81-99) fL MCH (28.0-34.0) pg MCHC (30.0-36.0) g/dL RDW (12.1-15.1) % Plt Count (130-400) 10^3/c mm MPV (7.4-10.4) fL Neut % (Auto) % Lymph % (Auto) % [place] % (Auto) % Eos % (Auto) % Baso % (Auto) % Neut # (Auto) (1.8-7.7) 10^3/u L Lymph # (Auto) (0.8-4.8) 10^3/u L [place] # (Auto) (0.2-0.9) 10^3/u L Eos # (Auto) (0.0-0.8) 10^3/u L Baso # (Auto) (0.0-0.1) 10^3/u L Nucleated RBC % (a uto) % Nucleated RBCs # /100WBC PT (10.5-13.3) SECO NDS INR (0.8-1.2) Sodium (136-145) mmol/L Potassium (3.5-5.1) mmol/L Chloride (98-107) mmol/L Carbon Dioxide (22-29) mmol/L Anion Gap (5-19) BUN (8-23) mg/dL Creatinine (0.5-0.9) mg/dL Glucose (65-115) mg/dL Estimat Average Gl ucose Hemoglobin A1c (4.0-6.0) % Calcium (8.5-10.5) mg/dL Magnesium (1.7-2.3) mg/dL Total Bilirubin (0.15-1.2) mg/dL AST (0-32) U/L ALT (0-33) U/L Alkaline Phosphata se (35-105) IU/L Troponin T Baselin e (0-10) ng/mL NT-Pro-B Natriuret Pep (0-125) pg/mL Total Protein (6.6-8.7) g/dL Albumin (3.5-5.2) g/dL Globulin (1.3-4.6) g/dL TSH (0.27-4.20) uIU/ mL Urine Color Dark yellow (Yellow) Urine Appearance Cloudy (CLEAR) Urine pH 5 (5-7) Ur Specific Gravit y 1.025 (1.005-1.030) Urine Protein 3+ H (Negative) Urine Glucose (UA) 1+ (Normal) Urine Ketones 1+ H (Negative) Urine Blood Neg (Negative) Urine Nitrate Negative (Negative) Urine Bilirubin 1+ H (NEGATIVE) Urine Urobilinogen 1 H (Negative) mg/dL Ur Leukocyte Nadya ase 2+ H (Negative) Urine RBC 0-4 H (0-2) /hpf Urine WBC 55-80 H (0-5) /hpf Ur Squamous Epith Cells 55-80 H (0-5) Urine Bacteria 3+ H (NONE) Urine Mucus 1+ Digoxin (0.6-1.2) ng/mL Imaging Data^: CXR: My impression: Cardiomegaly with mild pulmonary vascular congestion. Radiologist's impression: [address] [place] [address] XRay Report Signed Patient: Gianluca GoodeHarrisania #: [id number] : 1946Acct#:[id number] Age/Sex: 74 / FADM Date: 12/29/19 Loc: ERRoom/Bed: Attending Dr: Ordering Provider/Ordering MD: Flori South DO Date of Service: 12/29/19 Procedure(s): XR chest 1V portable [id number] Accession Number(s): [id number] Report Number: [id number] WS: [id number] XR chest 1V portable [id number] REASON FOR EXAM: cough FINDINGS: Cardiomegaly is noted. Monitors are noted on the chest wall. The endotracheal tube has been removed since December 08, 2019. There is no definite pneumonia, pleural effusion, pulmonary edema or mass effect. The hilum and apices normal. XR/XR chest 1V portable [id number] IMPRESSION: Cardiomegaly. Dictated By:Spencer Heaton DO Signed By:Spencer Heaton DOSigned Date/Time:12/29/19 1216 DD/ EKG Data^: EKG 1: EKG interpretation date: 12/29/19 EKG interpretation time: 11:10 Interpretation: A flutter with varying block. Ventricular rate bradycardic at 31 beats a minute, prolonged QTC. Nonspecific ST and T wave changes. Discharge Plan Discharge Patient Disposition: Admitted As Inpatient Admit Provider: Meir Nunes Clinical Impression: Bradycardia Condition: Stable Referrals: Milton Rodriguez DO [Primary Care Provider] - Discharge Date/Time: 12/29/19 16:07 Coding Level of Care Code ED Carbonizer Tester for Chg Fwd Exam Comprehensive The documentation recorded by the Nevin tsai Valerie R, accurately reflects the service I personally performed and the decisions made by Brannon alexis Eli N Dec 29, 2019 10:59
--- NOTE | 2019-12-29 11:03 | XR_ITS ---
WS: [id number] XR chest 1V portable [id number] REASON FOR EXAM: cough FINDINGS: Cardiomegaly is noted. Monitors are noted on the chest wall. The endotracheal tube has been removed since December 08, 2019. There is no definite pneumonia, pleural effusion, pulmonary edema or mass effect. The hilum and apices normal. XR/XR chest 1V portable [id number] IMPRESSION: Cardiomegaly.
--- NOTE | 2019-12-29 11:03 | ECG_ITS ---
Measurements Intervals [place] Rate: 31 P: [place]: 0 QRS: 17 QRSD: 95 T: 13 QT: 555 QTc: 402 ATRIAL FLUTTER WITH SLOW VENTRICULAR RESPONSE LEFT VENTRICULAR HYPERTROPHY AND ST-T CHANGE PROLONGED QT INTERVAL Compared to ECG 12/08/2019 12:59:20 Left ventricular hypertrophy now present ST (T wave) deviation now present Prolonged QT interval now present Myocardial infarct finding no longer present T-wave abnormality no longer present Possible ischemia no longer present Electronically Signed On 12-29-2019 15:20:53 TORCH SOLDERER by Saima Guzman M.D. [id number]
[2019-12-29 11:23] LABS: Basophils # 0.1 10^3/uL (0.0-0.1); Basophils % 0.5 %; Eosinophils # 0.1 10^3/uL (0.0-0.8); Eosinophils % 0.6 %; Hematocrit 39.1 % (37.0-47.0); Hemoglobin 11.8 g/dL (11.5-15.3); Lymphocytes # 2.1 10^3/uL (0.8-4.8); Lymphocytes % 16.2 %; Mean Corpuscular HGB Conc 30.2 g/dL (30.0-36.0); Mean Corpuscular Volume 96.1 fL (81-99); Mean Platelet Volume 11.2 fL (7.4-10.4); Monocytes # 0.5 10^3/uL (0.2-0.9); Monocytes % 3.7 %; Neutrophils % 78.6 %; Nucleated Red Blood Cells % 0 %; Platelet Count 264 10^3/cmm (130-400); Red Blood Count 4.07 10^6/uL (4.1-5.3); Red Cell Distribution Width 14.1 % (12.1-15.1); White Blood Count 12.7 10^3/uL (4.0-10.0)
[2019-12-29 11:31] LABS: INR 1.65 (0.8-1.2)
[2019-12-29 11:45] LABS: Troponin(5th) Baseline 9 ng/mL (0-10)
[2019-12-29 12:07] LABS: Alanine Aminotransferase 25 U/L (0-33); Albumin Level 3.8 g/dL (3.5-5.2); Alkaline Phosphatase 78 IU/L (35-105); Anion Gap 21.7 (5-19); Aspartate Amino Transferase 27 U/L (0-32); Blood Urea Nitrogen 22 mg/dL (8-23); Calcium 9.6 mg/dL (8.5-10.5); Carbon Dioxide 22 mmol/L (22-29); Chloride 96 mmol/L (98-107); Globulin 2.3 g/dL (1.3-4.6); Glucose 484 mg/dL (65-115); Magnesium 1.3 mg/dL (1.7-2.3); NT Pro B Type Natriuretic Pept 1913 pg/mL (0-125); Potassium 4.7 mmol/L (3.5-5.1); Sodium 135 mmol/L (136-145); Total Bilirubin 0.4 mg/dL (0.15-1.2); Total Protein 6.1 g/dL (6.6-8.7)
[2019-12-29 12:32] LABS: Digoxin 0.5 ng/mL (0.6-1.2)
[2019-12-29] MEDS: magnesium sulfate premix 2 GM/50 ML PIGGYBACK IV (12:43)
[2019-12-29] MEDS: sodium chloride 0.9% 1,000 ML 100 ML IV ×2 (12:43→16:09)
[2019-12-29] MEDS: DOPamine drip 400 MG/250 ML PREMIX 18.3 MG IV ×2 (12:44→23:29)
[2019-12-29 12:54] LABS: Bilirubin Urine 1+ (NEGATIVE); Blood Urine Neg (Negative); Glucose Urine UA 1+ (Normal); Ketones Urine 1+ (Negative); Leukocyte Esterase Urine 2+ (Negative); Nitrate Urine Negative (Negative); Protein Urine 3+ (Negative); Specific Gravity, Urine 1.025 (1.005-1.030); Urine Appearance Cloudy (CLEAR); Urine Color Dark Yellow (Yellow); Urobilinogen Urine 1 mg/dL (Negative); pH Urine 5 (5-7)
--- NOTE | 2019-12-29 13:03 | ECG_ITS ---
Measurements Intervals [place] Rate: 41 P: [place]: 0 QRS: 24 QRSD: 100 T: 65 QT: 435 QTc: 360 ATRIAL FLUTTER WITH SLOW VENTRICULAR RESPONSE Compared to ECG 12/08/2019 12:59:20 Myocardial infarct finding no longer present Electronically Signed On 12-29-2019 15:35:50 TEST BAKER by Saima Guzman M.D. [id number] f
[2019-12-29 13:15] LABS: RBC Urine 0-4 /hpf (0-2); WBC Urine 55-80 /hpf (0-5)
[2019-12-29 13:16] LABS: Add Urine Culture? No; Bacteria Urine 3+; Mucus Urine 1+; Squamous Epithelial Cell Urine 55-80 (0-5)
[2019-12-29] MEDS: promethazine 25 mg/mL SDV 1 mL 12.5 MG IM (13:18)
[2019-12-29 13:51] LABS: Troponin 5 2HR 6.47 ng/mL (0-10)
[2019-12-29 13:59] LABS: Troponin 5 2HR Delta -2.53 ABS# (0-10)
--- NOTE | 2019-12-29 14:37 | P.HP_ITS ---
Providers/Chief Complaint Admitting Physician: Meir Nunes MD Primary Care Provider: Milton Rodriguez DO Chief Complaint: WEAKNESS/ N/V/ LOW HR History of Present Illness Gianluca Goode is a 74 year old female with past medical history of paroxysmal atrial fibrillation, history of left parietal infarct, and right cerebellar infarct, srv-xsnfrqy-[id number] type 2 diabetes mellitus, hypertension, hyperlipidemia, SWETHA on CPAP, diastolic CHF, hypothyroidism, depression, seizure who presents to the emergency room for lightheadednes, dizzynes, nausea, vomiting, and diarrhea. Patient states she has not been feeling well for the last few days, she had been having nonbillious vomiting dizzynnes, poor appetite. Patient denies fevers, sick contacts, has chills, has dysuria, no cough, no chest pain, no palpitations. Patient states that her home health care nurse measured her heart rate and it was in the 30's so she came to the ED for evaluation. Patient states she was recently in [facility], was [place] [facility] but she is not on z medications? no seziures since discharge, last seizure was 2 weeks ago states that they increased metoprolol from 25 BID to 100 BID, increased cardizem 120 qd to 120 BID, and she remained digoxin 125mcg. Review of Systems Const: Reports: chills; Denies: fever or change in appetite ENMT: Denies: throat pain Card: Denies: chest pain, palpitations, irregular heart rhythm or edema Resp: Reports: shortness of breath and non-productive cough GI: Reports: nausea and vomiting; Denies: abdominal pain : Reports: difficulty urinating and painful urination; Denies: flank pain Musc: Denies: neck pain or back pain Skin/Breast: Reports: rash Neuro: Reports: headache Psych: Reports: anxiety and depression Endo: Reports: excessive urination Medications/Allergies Home Medications Medication Instructions Recorded Confirmed Last Taken Type atorvastatin 20 mg PO DAILY 12/29/19 12/29/19 12/28/19 History metoprolol tartrate 100 mg PO BID 12/29/19 12/29/19 12/28/19 History Allergies Allergy/AdvReac Type Severity Reaction Status Date / Time tetanus and diphtheria Allergy Unknown Verified 12/29/19 11:11 toxoids penicillin G procaine AdvReac unknown Verified 12/29/19 11:09 PFSH Acute PFSH: Medical History (Updated 12/29/19 @ 15:07 by Meir Nunes MD) Atrial dysrhythmia 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, managed as type 2 Heart failure Hypertension Hypothyroidism Paroxysmal A-fib Seizure Sleep apnea in adult Stroke due to embolism of left middle cerebral artery Family History Sister Diabetes Father Heart disease Mother Heart disease Social History Smoking and tobacco status: never smoked Vitals/I&O/Wt Last Vital Signs Temp 98.0 F 12/29/19 11:06 Pulse 55 L 12/29/19 13:26 Resp 14 12/29/19 11:06 BP 135/56 12/29/19 13:26 Pulse Ox 91 12/29/19 13:26 Weight last 48 hrs Weight 97.522 kg Physical Exam Const: COMMON NORMALS: no apparent distress and oriented x3 GENERAL APPEARANCE: cooperative and comfortable HENMT: COMMON NORMALS: normocephalic HEAD & SCALP: normocephalic Eye: COMMON NORMALS: PERRL, EOMs intact bilaterally and no papilledema GENERAL EYE: normal appearance of both eyes PUPIL: Yes PERRL DIRECT OPHTHALMOSCOPY: Yes no papilledema Neck/C-Spine: COMMON NORMALS: full ROM, no lymphadenopathy, no JVD and thyroid normal THYROID: thyroid normal Lymph: LYMPHATIC: no lymphadenopathy noted Resp: COMMON NORMALS: normal respiratory effort, no retractions, no use of accessory muscles and clear to auscultation bilaterally AUSCULTATION: clear to auscultation bilaterally Cardio: COMMON NORMALS: no JVD, regular rhythm, S1 normal heart sound, S2 normal heart sound, no gallops, no clicks and no murmurs RATE: bradycardic RHYTHM: regular rhythm HEART SOUNDS: S1 normal and S2 normal GI: COMMON NORMALS: normal to inspection, nondistended, normoactive bowel sounds, soft to palpation, non-tender and no hepatosplenomegaly PALPATION: Yes soft and Yes no hepatosplenomegaly Extremity: COMMON NORMALS: normal to inspection, full ROM and no pedal edema Neuro: COMMON NORMALS: oriented x3, CN's II-XII intact bilaterally, moves all extremities and no focal motor deficits Psych: COMMON NORMALS: mental status grossly normal, thought process normal a nd cooperative THOUGHT PROCESS: normal thought process Data : 12/29/19 11:12 12/29/19 11:12 A&P Assessment and plan (1) Bradycardia: -Sinus bradycardia, HR NOW 50-60's -on Dopamine drip -Mag was low at 1.2, repleted -likely secondary to digoxin, increased metoprolol 100BID, increased cardizem to 120 BID -full code -agreeable to pacemaker placement if required PLAN: -admitted to ICU -cardiology consulted -dopamine drip -atropine PRN Status: Acute Code(s): R00.1 - Bradycardia, unspecified (2) UTI (urinary tract infection): -bactrim -hyrdation Status: Acute Code(s): N39.0 - Urinary tract infection, site not specified (3) Dementia: Status: Acute Code(s): F03.90 - Unspecified dementia without behavioral disturbance (4) Generalized seizure disorder: -admitted 2 weeks ago for seizures at [facility] -not on seizure medication? -sees dr. gallegos -last seizure was 2 weeks ago PLAN: -will await record from [facility] -start keppra 500 BID interim Status: Acute Code(s): G40.309 - Generalized idiopathic epilepsy and epileptic syndromes, not intractable, without status epilepticus (5) Severe obstructive sleep apnea: Status: Acute Code(s): G47.33 - Obstructive sleep apnea (adult) (pediatric) (6) Seizure: Status: Acute Code(s): R56.9 - Unspecified convulsions (7) ANGIE (acute kidney injury): -cr 1.3, likley dehydration -receiving fuids Status: Acute Code(s): N17.9 - Acute kidney failure, unspecified (8) Paroxysmal A-fib: -holding metoprolol, cardizem, digoxin -digoxin level 0.4 level -telemetry monitoring -coutinue eliquis 5mg BID Status: Acute Code(s): I48.0 - Paroxysmal atrial fibrillation Attestations Medical Necessity Statement*: patient requires inpatient admission, >2 midnights, sinus bradycardia Coding Level of Care Code Acute Retail Sales Teammate for [facility] Fwd Diagnoses Bradycardia R00.1 UTI (urinary tract infection) N39.0 Dementia F03.90 Generalized seizure disorder G40.309 Severe obstructive sleep apnea G47.33 Seizure R56.9 ANGIE (acute kidney injury) N17.9 Paroxysmal A-fib I48.0
[2019-12-29 17:10] LABS: Thyroid Stimulating Hormone 11.26 uIU/mL (0.27-4.20)
[2019-12-29 17:58] LABS: Troponin 5 6HR 10.57 ng/mL (0-10); Troponin 5 6HR Delta 1.57 ng/L (0-12)
[2019-12-29 18:07] LABS: Alanine Aminotransferase 27 U/L (0-33); Alkaline Phosphatase 86 IU/L (35-105); Anion Gap 19.9 (5-19); Aspartate Amino Transferase 25 U/L (0-32); Blood Urea Nitrogen 23 mg/dL (8-23); Calcium 10.2 mg/dL (8.5-10.5); Carbon Dioxide 24 mmol/L (22-29); Chloride 96 mmol/L (98-107); Glucose 349 mg/dL (65-115); Magnesium 1.8 mg/dL (1.7-2.3); NT Pro B Type Natriuretic Pept 1478 pg/mL (0-125); Potassium 3.9 mmol/L (3.5-5.1); Sodium 136 mmol/L (136-145); Total Bilirubin 0.4 mg/dL (0.15-1.2)
[2019-12-29] MEDS: apixaban 5 mg Tablet PO (18:18)
[2019-12-29] MEDS: levETIRAcetam 500 mg Tablet PO (18:19)
[2019-12-29] MEDS: sulfamethoxazole-trimeth DS 160-800 mg Tablet 1 TAB PO (18:19)
[2019-12-29 18:35] LABS: Glucose Point of Care 282 mg/dL (70-110)
[2019-12-29 18:38] LABS: Estmated Average Glucose 192; Hemoglobin A1C 8.3 % (4.0-6.0)
--- NOTE | 2019-12-29 18:49 | PM.CONSULT ---
Providers/Reason For Consult Consulting Physican/Specialty*: Cardiology Reason for Consult*: Symptomatic bradycardia A. fib withSlow ventricular response Attending Physician: Meir Nunes MD Primary Care Provider: Milton Rodriguez DO History of Present Illness History of Present Illness Gianluca Goode is a 74 year old female Past medical history significant for atrial fibrillation, CVA, seizures, diastolic heart failure presented to the emergency room with dizziness feeling of presyncope and shortness of breath. She was found to be in atrial flutter with slow ventricular response heart rate was in 30s. She was stable vital nunez though. According to the patient she see Dr. Guzman as an outpatient. She was started on combination of metoprolol 50 mg twice a day and digoxin however she was Admitted at [facility] for ostium with seizure disorder. Upon discharge metoprolol was increased to 100 mg twice a day since then she has been feeling dizzy short of breath and felt like she is going to pass out. She denies chest pain PND orthopnea. She denies major syncope. Review of Systems General: Reports: other (negative unless marked) Const: Reports: chills; Denies: fever, body aches, change in appetite, fatigue, malaise or diaphoresis Eyes: Denies: change in vision or blurry vision ENMT: Denies: throat pain, painful swallowing, hoarseness, ear pain, ear discharge, change in hearing or nasal discharge Card: Reports: lightheadedness and shortness of breath on exertion; Denies: chest pain, palpitations, irregular heart rhythm, edema, syncope, pre-syncope or shortness of breath when lying down Resp: Reports: shortness of breath and non-productive cough; Denies: productive cough, wheezing, coughing up blood or chest congestion GI: Reports: nausea and vomiting; Denies: abdominal pain : Reports: difficulty urinating and painful urination; Denies: flank pain, urinary frequency, urinary urgency, decreased urine ouput, urinary incontinence or blood in urine Musc: Denies: neck pain, back pain, extremity pain, extremity swelling, joint pain, joint swelling, joint warmth or joint stiffness Skin/Breast: Reports: rash; Denies: skin tenderness or yellow skin Neuro: Reports: headache; Denies: numbness in extremities, weakness in extremities, changes in sensation, lack of coordination, difficulty walking, dizziness, vertigo or confusion Psych: Reports: anxiety and depression Endo: Reports: excessive urination; Denies: excessive thirst, tired all the time, cold intolerance, excessive sweating, flushing or hot flashes Trung/Lymph: Denies: easy bruising, easy bleeding, petechiae or enlarged lymph nodes All/Imm: Denies: hives, throat swelling, tongue swelling, facial swelling or acute wheezing Meds/Allergies Home Medications and Allergies Home Medications Medication Instructions Recorded Confirmed Type alprazolam 0.25 mg tablet 0.25 mg PO BID PRN 11/01/19 12/29/19 History apixaban 5 mg tablet 5 mg PO BID 11/01/19 12/29/19 History diltiazem HCl 120 mg 120 mg PO BID 11/01/19 12/29/19 History capsule,extended release 24 hr escitalopram oxalate 10 mg tablet 20 mg PO DAILY 11/01/19 12/29/19 History fluticasone propionate 115 2 puff INHALATION Q12H 11/01/19 12/29/19 History mcg-salmeterol 21 mcg/actuation HFA inhaler glimepiride 4 mg tablet 4 mg PO DAILY 11/01/19 12/29/19 History levothyroxine 150 mcg tablet 150 mcg PO DAILY 11/01/19 12/29/19 History metformin 1,000 mg tablet,extended 1,000 mg PO BID 11/01/19 12/29/19 History release 24hr albuterol sulfate 90 mcg/actuation 2 puff INHALATION Q6H PRN 12/08/19 12/29/19 History aerosol inhaler aspirin 81 mg tablet,delayed 81 mg PO DAILY 12/08/19 12/29/19 History release biotin 5 mg capsule 5 mg PO DAILY 12/08/19 12/29/19 History digoxin 62.5 mcg (0.0625 mg) tablet 125 mcg PO DAILY tab 12/08/19 12/29/19 History hydrochlorothiazide 25 mg tablet 25 mg PO DAILY 12/08/19 12/29/19 History lisinopril 10 mg tablet 40 mg PO DAILY tab 12/08/19 12/29/19 History omeprazole 20 mg capsule,delayed 20 mg PO DAILY cap 12/08/19 12/29/19 History release potassium gluconate 595 mg (99 mg) 595 mg PO DAILY 12/08/19 12/29/19 History tablet atorvastatin 20 mg PO DAILY 12/29/19 12/29/19 History metoprolol tartrate 100 mg PO BID 12/29/19 12/29/19 History Allergies Allergy/AdvReac Type Severity Reaction Status Date / Time tetanus and diphtheria Allergy Unknown Verified 12/29/19 11:11 toxoids penicillin G procaine AdvReac unknown Verified 12/29/19 11:09 Current Medications Current Medications Generic Name Dose Route Start Last Admin Trade Name Vinnie PRN Reason Stop Dose Admin Apixaban 5 mg 12/29/19 18:00 12/29/19 18:18 Eliquis PO 5 mg BID ART Administration Sodium Chloride 1,000 mls @ 100 mls/hr 12/29/19 11:15 12/29/19 12:43 Sodium Chloride 0.9% IV 100 mls/hr .Q10H ART Administration Dopamine HCl/Dextrose 400 mg in 250 mls @ 18.285 mls/hr 12/29/19 12:45 12/29/19 12:44 Intropin Drip IV 5 mcg/kg/min CONT ART 18.3 mls/hr Administration Protocol 5 MCG/KG/MIN Sodium Chloride 1,000 mls @ 100 mls/hr 12/29/19 15:45 12/29/19 16:09 Sodium Chloride 0.9% IV 100 mls/hr .Q10H ART Administration Insulin Aspart 0 unit 12/29/19 18:00 12/29/19 18:17 Novolog SUBCUT 8 unit TIDWM ART Administration Protocol Levetiracetam 500 mg 12/29/19 18:00 12/29/19 18:19 Keppra PO 500 mg BID ART Administration Non-Formulary Medication 2 puff 12/29/19 15:45 12/29/19 18:14 Fluticasone Propion-Salmeterol [Advair Hfa] INHALATION Not Given Q12H ART Trimethoprim/Sulfamethoxazole 1 tab 12/29/19 18:00 12/29/19 18:19 Bactrim Ds PO 1 tab BID ART Administration Protocol PFSH Acute PFSH: Medical History (Updated 12/30/19 @ 14:42 by Oanh Caballero MD) Atrial dysrhythmia Atrial fibrillation 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, managed as type 2 Heart failure Hypertension Hypothyroidism Paroxysmal A-fib Seizure Sleep apnea in adult Stroke due to embolism of left middle cerebral artery Family History Sister Diabetes Father Heart disease Mother Heart disease Social History Smoking and tobacco status: never smoked Dietary Habits: Current diet type/program: regular Vitals/I&O/Wt Last Vital Signs Temp 98.0 F 12/29/19 11:06 Pulse 87 12/29/19 18:00 Resp 17 12/29/19 18:00 BP 126/83 12/29/19 18:00 Pulse Ox 91 12/29/19 18:00 12/29/19 12/29/19 12/29/19 06:59 14:59 22:59 Intake Total 50 / 50 Output Total 500 / 500 Balance 50 / 50 -500 / -450 Weight last 48 hrs Weight 210 lb Weight 215 lb Physical Exam Narrative: EXAM NARRATIVE: GENERAL: Patient is alert, awake and oriented x3. NECK: No jugular vein distension. HEENT: No cyanosis. No icterus. No pallor. HEART: Regularly irregular S1 and S2. No murmur, rub or gallop. LUNGS: Clear to auscultate bilaterally. ABDOMEN: Soft, nontender and nondistended. Positive bowel sounds. No guarding, rebound or tenderness. CENTRAL NERVOUS SYSTEM: Grossly nonfocal. EXTREMITIES: Lower extremities without edema bilaterally. Data Labs: Other Labs: ATRIAL FLUTTER WITH SLOW VENTRICULAR RESPONSE LEFT VENTRICULAR HYPERTROPHY AND ST-T CHANGE PROLONGED QT INTERVAL Compared to ECG 12/08/2019 12:59:20 Left ventricular hypertrophy now present ST (T wave) deviation now present Prolonged QT interval now present Myocardial infarct finding no longer present T-wave abnormality no longer present Possible ischemia no longer present A&P Assessment and plan (1) Bradycardia: Patient has atrial fibrillation with slow ventricular response secondary to high dose of beta alexandrea which was recently started in [place]. We will discontinue beta alexandrea and digoxin. Digoxin level was within normal limits. We will start patient on dopamine. Over next 24 hour once medicine will wear off we will further assess her and optimizing medicine. Status: Acute Code(s): R00.1 - Bradycardia, unspecified (2) Atrial fibrillation: Slow ventricular response. Hold beta alexandrea and digoxin. Continue anticoagulation. Status: Acute Code(s): I48.91 - Unspecified atrial fibrillation Consult Attestations Medical Necessity Statement: I'm expecting her stay to cross more than 2 midnights Due to above defined problem. Coding Level of Care Code Established Pt Acute Drying Room Supervisor for Morgan Sanchez Patient Type Established History Expanded Problem Focused Exam Expanded Problem Focused Medical Decision Making Moderate Complexity Diagnoses Bradycardia R00.1 Atrial fibrillation I48.91
[2019-12-29 20:57] LABS: Glucose Point of Care 202 mg/dL (70-110)
[2019-12-30] VITALS (20 sets, daily range): BP systolic 122–166; BP diastolic 58–97; PULSE 56–96; RESP 13–29; TEMP 36.4–37.2; O2SAT 88–95
[2019-12-30 04:02] LABS: Basophils % 0.4 %; Eosinophils # 0.1 10^3/uL (0.0-0.8); Eosinophils % 1.5 %; Hematocrit 38.8 % (37.0-47.0); Hemoglobin 12.2 g/dL (11.5-15.3); Lymphocytes # 1.9 10^3/uL (0.8-4.8); Lymphocytes % 23.9 %; Mean Corpuscular HGB Conc 31.4 g/dL (30.0-36.0); Mean Corpuscular Hemoglobin 28.8 pg (28.0-34.0); Mean Corpuscular Volume 91.7 fL (81-99); Monocytes # 0.7 10^3/uL (0.2-0.9); Monocytes % 8.3 %; Neutrophils # 5.2 10^3/uL (1.8-7.7); Neutrophils % 65.5 %; Nucleated Red Blood Cells % 0 %; Platelet Count 251 10^3/cmm (130-400); Red Blood Count 4.23 10^6/uL (4.1-5.3); Red Cell Distribution Width 14.1 % (12.1-15.1); White Blood Count 7.9 10^3/uL (4.0-10.0)
[2019-12-30 04:17] LABS: Alanine Aminotransferase 22 U/L (0-33); Albumin Level 3.6 g/dL (3.5-5.2); Alkaline Phosphatase 78 IU/L (35-105); Anion Gap 14.5 (5-19); Aspartate Amino Transferase 18 U/L (0-32); Blood Urea Nitrogen 15 mg/dL (8-23); Calcium 10.1 mg/dL (8.5-10.5); Carbon Dioxide 30 mmol/L (22-29); Chloride 99 mmol/L (98-107); Globulin 3.5 g/dL (1.3-4.6); Glucose 223 mg/dL (65-115); Potassium 3.5 mmol/L (3.5-5.1); Sodium 140 mmol/L (136-145); Total Bilirubin 0.3 mg/dL (0.15-1.2); Total Protein 7.1 g/dL (6.6-8.7)
[2019-12-30 04:18] LABS: Magnesium 1.7 mg/dL (1.7-2.3); Phosphorus 3.4 mg/dL (2.5-4.5)
[2019-12-30 07:24] LABS: Glucose Point of Care 219 mg/dL (70-110)
[2019-12-30] MEDS: pantoprazole DR 40 mg Tablet PO (08:07)
[2019-12-30] MEDS: sulfamethoxazole-trimeth DS 160-800 mg Tablet 1 TAB PO ×2 (08:07→17:16)
[2019-12-30] MEDS: atorvastatin 40 mg Tablet 20 MG PO (08:07)
[2019-12-30] MEDS: aspirin 81 mg EC Tablet PO (08:07)
[2019-12-30] MEDS: apixaban 5 mg Tablet PO ×2 (08:07→17:17)
[2019-12-30] MEDS: levothyroxine 150 mcg Tablet PO (08:07)
[2019-12-30] MEDS: levETIRAcetam 500 mg Tablet PO ×2 (08:08→17:17)
--- NOTE | 2019-12-30 11:09 | PC.NURSE ---
Dr. Caballero in room. Orders received to d/c fluids and administer 12.5 mg lopressor PO BID. Give first dose now. If patient remains asymptomatic and HR stable she can go to [facility] later today.
[2019-12-30] MEDS: metoprolol tartrate 25 mg Tablet 12.5 MG PO ×2 (11:32→17:16)
[2019-12-30] MEDS: levothyroxine 25 mcg Tablet PO (11:32)
[2019-12-30 11:37] LABS: Glucose Point of Care 252 mg/dL (70-110)
--- NOTE | 2019-12-30 13:24 | PC.CHAP ---
Pastoral Care Encounter/Spiritual Assessment Type of Contact [] Declined early intervention school psychologist visit [] Patient/Family/Request visit [] Outpatient visit [] Follow-up visit [] Physician referral [] Code/Alert [X] Routine visit [] Staff referral [] Actively dying [] Patient sleeping [] Family support [] [] Out of room [] Palliative care [] [] Receiving care in room [] Pre-surgical visit [] Trauma [] Long length of stay [] ICU visit [] Other: Relational/Emotional Strength [] Patient feels connected with others/family/visitors/staff [] Distress [] Loneliness/isolation [] Abandonment Spirituality of Patient [] Person of Elizabeth [] Attends Mandaen of their Elizabeth [] Believes in Prayer [] Reads Bible or Evangelical materials [] There are Spiritual issues to be addressed [employer] Interventions [] Prayer [] Active listening [] Non-anxious presence [] Spiritual/emotional support [] Crisis/trauma care [] Spiritual counseling [] Bereavement support [] Provided bereavement packet [] Provided Bible/devotional materials [] Provided toy/stuffed animal, coloring book to patient or family member [] Provided Communion [] Anointing/[place] [] Salvation [] Completed spiritual assessment [] Other: Impact on Illness or Injury [] Angry [] Fearful [] Anxious [] Often cries [] Exhaustion [] Unable to work [] Unable to attend baptist [] Unable to walk/stand [] Unable to read [] Unable to drive [] Unable to eat/drink [] Unable to sleep [] Unable to be with family [] Patient intubated [] Other: Summary Time spent with patient
--- NOTE | 2019-12-30 15:32 | PM.PN ---
Subjective Subjective: Interval history: Patient heart rate has much improved she is off dopamine. Vitals/I&O/Wt Last Vital Signs Temp 97.6 F 12/30/19 08:00 Pulse 69 12/30/19 14:00 Resp 18 12/30/19 14:00 BP 151/86 12/30/19 12:00 Pulse Ox 91 12/30/19 14:00 12/30/19 12/30/19 12/30/19 06:59 14:59 22:59 Intake Total 162.565 / 382.045 300 / 300 Output Total 1250 / 1250 Balance 162.565 / -317.955 -950 / -950 Weight last 48 hrs Weight 210 lb Weight 215 lb Physical Exam Narrative: EXAM NARRATIVE: GENERAL: Patient is alert, awake and oriented x3. NECK: No jugular vein distension. HEENT: No cyanosis. No icterus. No pallor. HEART: Regularly irregular S1 and S2. No murmur, rub or gallop. LUNGS: Clear to auscultate bilaterally. ABDOMEN: Soft, nontender and nondistended. Positive bowel sounds. No guarding, rebound or tenderness. CENTRAL NERVOUS SYSTEM: Grossly nonfocal. EXTREMITIES: Lower extremities without edema bilaterally. Data : 12/30/19 03:23 12/30/19 03:23 A&P Assessment and plan (1) Bradycardia: Bradycardia is improved. No more pauses. I will restart metoprolol at 12.5 mg twice a day. Continue anticoagulation Status: Acute Code(s): R00.1 - Bradycardia, unspecified (2) Atrial fibrillation: I will start patient on metoprolol 12.5 mg twice a day. Status: Acute Code(s): I48.91 - Unspecified atrial fibrillation Attestations Medical Necessity Statement*: Patient requires continuation of hospitalization for above defined Care Coding Level of Care Code Established Pt Acute Director Patient Financial Services for [facility] Fwd Patient Type Established History Expanded Problem Focused Exam Expanded Problem Focused Medical Decision Making Moderate Complexity Diagnoses Bradycardia R00.1 Atrial fibrillation I48.91
--- NOTE | 2019-12-30 16:05 | PM.PN ---
Subjective Subjective: Interval history: This morning patient was examined, she has no significant complaints, no fevers, no chills, is requiring 3 L of oxygen, does not use oxygen at home denies any chest pain, palpitations, any seizure-like episodes, still on a dopamine drip, but doing better, heart rates in the 70s Vitals/I&O/Wt Last Vital Signs Temp 97.6 F 12/30/19 08:00 Pulse 69 12/30/19 14:00 Resp 18 12/30/19 14:00 BP 151/86 12/30/19 12:00 Pulse Ox 91 12/30/19 14:00 12/30/19 12/30/19 12/30/19 06:59 14:59 22:59 Intake Total 162.565 / 382.045 300 / 300 Output Total 1250 / 1250 Balance 162.565 / -317.955 -950 / -950 Weight last 48 hrs Weight 95.254 kg Weight 97.522 kg Physical Exam Const: COMMON NORMALS: no apparent distress and oriented x3 HENMT: COMMON NORMALS: normocephalic HEAD & SCALP: normocephalic Neck/C-Spine: COMMON NORMALS: no JVD Resp: COMMON NORMALS: normal respiratory effort, no retractions, no use of accessory muscles and clear to auscultation bilaterally AUSCULTATION: clear to auscultation bilaterally Cardio: COMMON NORMALS: no JVD, regular rate, regular rhythm, S1 normal heart sound and S2 normal heart sound RATE: regular rate RHYTHM: regular rhythm HEART SOUNDS: S1 normal and S2 normal GI: COMMON NORMALS: normal to inspection, nondistended, normoactive bowel sounds, soft to palpation, non-tender, no hepatosplenomegaly, no masses and no bruits PALPATION: Yes soft and Yes no hepatosplenomegaly Extremity: COMMON NORMALS: normal capillary refill, no clubbing, cyanosis or edema, no calf tenderness and no pedal edema Neuro: COMMON NORMALS: oriented x3 Psych: COMMON NORMALS: mental status grossly normal Data : 12/30/19 03:23 12/30/19 03:23 A&P Assessment and plan (1) Bradycardia: -Sinus bradycardia, HR NOW 70s -on Dopamine drip -Mag was low at 1.2, repleted now 1.7 -likely secondary to digoxin, increased metoprolol 100BID, increased cardizem to 120 BID -full code -agreeable to pacemaker placement if required PLAN: -admitted to ICU -cardiology consulted, Dr. Lowry will see -dopamine drip, will slowly wean off -atropine PRN Status: Acute Code(s): R00.1 - Bradycardia, unspecified (2) UTI (urinary tract infection): -bactrim -hyrdation Status: Acute Code(s): N39.0 - Urinary tract infection, site not specified (3) Dementia: Status: Acute Code(s): F03.90 - Unspecified dementia without behavioral disturbance (4) Generalized seizure disorder: -admitted 2 weeks ago for seizures at [facility] -Review of the records from [facility] show that patient had a 24-hour EEG which did not show seizure like episodes, was not discharged any seizure medications -sees dr. gallegos -last seizure was 2 weeks ago PLAN:No longer thank you so much -start keppra 500 BID interim Status: Acute Code(s): G40.309 - Generalized idiopathic epilepsy and epileptic syndromes, not intractable, without status epilepticus (5) Severe obstructive sleep apnea: Status: Acute Code(s): G47.33 - Obstructive sleep apnea (adult) (pediatric) (6) Seizure: Status: Acute Code(s): R56.9 - Unspecified convulsions (7) ANGIE (acute kidney injury): -Creatinine 0.9 Status: Acute Code(s): N17.9 - Acute kidney failure, unspecified (8) Paroxysmal A-fib: -holding metoprolol, cardizem, digoxin -digoxin level 0.4 level -telemetry monitoring -coutinue eliquis 5mg BID Status: Acute Code(s): I48.0 - Paroxysmal atrial fibrillation (9) CHF (congestive heart failure): -Patient is requiring 3 L of oxygen, chest x-ray shows pulmonary vascular congestion, BNP 1478, patient did receive IV hydration due to ANGIE Plan: -We will give 40 mg IV Lasix once, monitor response Status: Acute Code(s): I50.9 - Heart failure, unspecified (10) Hypothyroidism: -TSH is elevated 11.26, increase levothyroxine 175 mcg once daily Status: Acute Code(s): E03.9 - Hypothyroidism, unspecified Attestations Medical Necessity Statement*: Patient requires hospitalization due to bradycardia Coding Level of Care Code Acute Stem Cleaning Machine Feeder for Chg Fwd Diagnoses Bradycardia R00.1 UTI (urinary tract infection) N39.0 Dementia F03.90 Generalized seizure disorder G40.309 Severe obstructive sleep apnea G47.33 Seizure R56.9 ANGIE (acute kidney injury) N17.9 Paroxysmal A-fib I48.0 CHF (congestive heart failure) I50.9 Hypothyroidism E03.9
[2019-12-30 17:09] LABS: Glucose Point of Care 235 mg/dL (70-110)
[2019-12-30] MEDS: FUROsemide 10 mg/mL SDV 4mL 40 MG IVP (17:16)
[2019-12-30] MEDS: lisinopril 10 mg Tablet PO (20:28)
[2019-12-30 20:41] LABS: Glucose Point of Care 216 mg/dL (70-110)
[2019-12-31] VITALS (17 sets, daily range): BP systolic 96–149; BP diastolic 57–94; PULSE 64–128; RESP 12–31; TEMP 36.4–37.1; O2SAT 87–95
[2019-12-31 05:48] LABS: Alanine Aminotransferase 23 U/L (0-33); Albumin Level 3.1 g/dL (3.5-5.2); Alkaline Phosphatase 71 IU/L (35-105); Anion Gap 15.4 (5-19); Aspartate Amino Transferase 18 U/L (0-32); Blood Urea Nitrogen 17 mg/dL (8-23); Calcium 9.8 mg/dL (8.5-10.5); Carbon Dioxide 29 mmol/L (22-29); Chloride 99 mmol/L (98-107); Globulin 3.3 g/dL (1.3-4.6); Glucose 200 mg/dL (65-115); Potassium 3.4 mmol/L (3.5-5.1); Sodium 140 mmol/L (136-145); Total Bilirubin 0.3 mg/dL (0.15-1.2); Total Protein 6.4 g/dL (6.6-8.7)
[2019-12-31 05:49] LABS: Magnesium 1.7 mg/dL (1.7-2.3); Phosphorus 3.4 mg/dL (2.5-4.5)
[2019-12-31 07:39] LABS: Glucose Point of Care 174 mg/dL (70-110)
--- NOTE | 2019-12-31 07:40 | PM.PN ---
Subjective Subjective: Interval history: Gianluca reports that she is feeling fine. No particular concerns. Lower dose metoprolol added yesterday by cardiology which she is tolerating. No bradycardia through the night. Medications: Reviewed: Yes Vitals/I&O/Wt Last Vital Signs Temp 98.0 F 12/31/19 06:00 Pulse 64 12/31/19 06:00 Resp 17 12/31/19 06:00 BP 149/87 12/31/19 06:00 Pulse Ox 91 12/31/19 06:00 12/30/19 12/31/19 12/31/19 21:59 06:59 14:59 Intake Total Output Total Balance Weight last 48 hrs Weight 95.254 kg Weight 97.522 kg Physical Exam Narrative: EXAM NARRATIVE: General exam is no apparent distress Cardiovascular regular rate and rhythm without murmur Lungs clear Abdomen is soft with positive bowel sounds Extremities no cyanosis clubbing or edema Data : 12/30/19 03:23 12/31/19 03:40 A&P Assessment and plan (1) Bradycardia: Sinus bradycardia on admission, on home medicines digoxin, metoprolol, diltiazem. She required a dopamine drip. She is now off the dopamine drip doing better, and low-dose metoprolol has been started. Cardiology is following. Continue low-dose metoprolol Magnesium has been supplemented Supplement potassium today Transfer out of ICU. Status: Acute Code(s): R00.1 - Bradycardia, unspecified (2) UTI (urinary tract infection): May be contaminated. Bactrim is been started. Culture pending. Status: Acute Code(s): N39.0 - Urinary tract infection, site not specified (3) Dementia: Stable Status: Acute Code(s): F03.90 - Unspecified dementia without behavioral disturbance (4) Generalized seizure disorder: Placed on Keppra 500 mg twice a day this hospitalization. Last seizure 2 weeks ago. Continue close monitoring. Recent admission outlying hospital. Status: Acute Code(s): G40.309 - Generalized idiopathic epilepsy and epileptic syndromes, not intractable, without status epilepticus (5) Severe obstructive sleep apnea: Ordered patient's CPAP Status: Acute Code(s): G47.33 - Obstructive sleep apnea (adult) (pediatric) (6) Seizure: Placed on Keppra Status: Acute Code(s): R56.9 - Unspecified convulsions (7) ANGIE (acute kidney injury): Overall stable. Slight increase noted from yesterday, likely secondary to Bactrim and/or Lasix. Status: Acute Code(s): N17.9 - Acute kidney failure, unspecified (8) Paroxysmal A-fib: Continue Eliquis See comments above regarding bradycardia Status: Acute Code(s): I48.0 - Paroxysmal atrial fibrillation (9) CHF (congestive heart failure): Compensated currently Wean oxygen off Status: Acute Code(s): I50.9 - Heart failure, unspecified (10) Hypothyroidism: TSH elevated. Consider increasing levothyroxine on discharge. Status: Acute Code(s): E03.9 - Hypothyroidism, unspecified Additional A&P Information Past history of CVA, left parietal and right cerebellar. Continue Eliquis. Attestations Medical Necessity Statement*: Needs continued hospital stay for close monitoring of heart rate with adjustment of medications for paroxysmal atrial fibrillation Coding Level of Care Code Acute Package Collector for Chg Fwd Diagnoses Bradycardia R00.1 UTI (urinary tract infection) N39.0 Dementia F03.90 Generalized seizure disorder G40.309 Severe obstructive sleep apnea G47.33 Seizure R56.9 ANGIE (acute kidney injury) N17.9 Paroxysmal A-fib I48.0 CHF (congestive heart failure) I50.9 Hypothyroidism E03.9
[2019-12-31] MEDS: apixaban 5 mg Tablet PO ×2 (08:23→17:20)
[2019-12-31] MEDS: levothyroxine 150 mcg Tablet PO (08:24)
[2019-12-31] MEDS: aspirin 81 mg EC Tablet PO (08:24)
[2019-12-31] MEDS: levETIRAcetam 500 mg Tablet PO ×2 (08:24→17:20)
[2019-12-31] MEDS: atorvastatin 40 mg Tablet 20 MG PO (08:24)
[2019-12-31] MEDS: sulfamethoxazole-trimeth DS 160-800 mg Tablet 1 TAB PO ×2 (08:25→17:20)
[2019-12-31] MEDS: levothyroxine 25 mcg Tablet PO (08:25)
[2019-12-31] MEDS: metoprolol tartrate 25 mg Tablet 12.5 MG PO (08:25)
[2019-12-31] MEDS: lisinopril 10 mg Tablet PO (08:25)
[2019-12-31] MEDS: pantoprazole DR 40 mg Tablet PO (08:25)
[2019-12-31 11:52] LABS: Glucose Point of Care 278 mg/dL (70-110)
[2019-12-31] MEDS: metoprolol tartrate 25 mg Tablet PO (14:24)
--- NOTE | 2019-12-31 15:46 | P.PN_ITS ---
Subjective Subjective: Interval history: Patient has fast heart rate now. She continues to be in A. fib. She was started on metoprolol yesterday Medications: Reviewed: Yes Vitals/I&O/Wt Last Vital Signs Temp 97.6 F 12/31/19 08:00 Pulse 128 H 12/31/19 14:00 Resp 19 H 12/31/19 14:00 BP 111/82 12/31/19 14:00 Pulse Ox 87 L 12/31/19 14:00 12/31/19 12/31/19 12/31/19 06:59 14:59 22:59 Intake Total 480 / 480 Output Total Balance 480 / 480 Weight last 48 hrs Weight 210 lb Physical Exam Narrative: EXAM NARRATIVE: GENERAL: Patient is alert, awake and oriented x3. NECK: No jugular vein distension. HEENT: No cyanosis. No icterus. No pallor. HEART: Regularly irregular S1 and S2. No murmur, rub or gallop. LUNGS: Clear to auscultate bilaterally. ABDOMEN: Soft, nontender and nondistended. Positive bowel sounds. No guarding, rebound or tenderness. CENTRAL NERVOUS SYSTEM: Grossly nonfocal. EXTREMITIES: Lower extremities without edema bilaterally. Data : 12/30/19 03:23 12/31/19 03:40 A&P Assessment and plan (1) Bradycardia: Bradycardia is improved now she is more tachycardic Status: Acute Code(s): R00.1 - Bradycardia, unspecified (2) Atrial fibrillation: Heart rate started creeping up now we will increase Metoprolol to 50 mg twice a day Status: Acute Code(s): I48.91 - Unspecified atrial fibrillation (3) Hypertension: We will start back on lisinopril Status: Acute Code(s): I10 - Essential (primary) hypertension (4) CHF (congestive heart failure): Well compensated. Continue current management Status: Acute Code(s): I50.9 - Heart failure, unspecified Attestations Medical Necessity Statement*: Required continuation hospitalization for above defined care Coding Level of Care Code Established Pt Acute Switchboard Clerk for g Fwd Patient Type Established History Expanded Problem Focused Exam Expanded Problem Focused Medical Decision Making Moderate Complexity Diagnoses Bradycardia R00.1 Atrial fibrillation I48.91 Hypertension I10 CHF (congestive heart failure) I50.9
--- NOTE | 2019-12-31 15:58 | PC.NURSE ---
Patient report called to MERV[facility] Lee on C[facility]. Patient belongings gathered and patient placed in wheelchair with stand by assist. Patient then transported to Room 101. Patient placed in bed and connected to quality assurance monitor final. MERVAT Lee at bedside when this nurse departed. Patient noted to be in stable condition at this time.
--- NOTE | 2019-12-31 16:06 | PC.NURSE ---
RECEIVED PATIENT FROM ICU FROM [facility] VIA WHEELCHAIR. PATIENT VITAL SIGNS STABLE. NO COMPLAINTS NOTED AT THIS TIME. HEART RATE FROM 80'S TO 100'S IN A FLUTTER. WILL CONTINUE TO MONITOR.
[2019-12-31 16:28] LABS: Glucose Point of Care 215 mg/dL (70-110)
[2019-12-31 20:37] LABS: Glucose Point of Care 245 mg/dL (70-110)
[2019-12-31] MEDS: metoprolol tartrate 50 mg Tablet PO (20:54)
[2020-01-01] VITALS (8 sets, daily range): BP systolic 116–142; BP diastolic 63–85; PULSE 62–85; RESP 14–23; TEMP 36.6–37.2; O2SAT 89–93
[2020-01-01 05:56] LABS: Alanine Aminotransferase 19 U/L (0-33); Albumin Level 3.3 g/dL (3.5-5.2); Alkaline Phosphatase 77 IU/L (35-105); Anion Gap 14.6 (5-19); Aspartate Amino Transferase 14 U/L (0-32); Blood Urea Nitrogen 17 mg/dL (8-23); Calcium 10.3 mg/dL (8.5-10.5); Carbon Dioxide 30 mmol/L (22-29); Chloride 100 mmol/L (98-107); Globulin 3.4 g/dL (1.3-4.6); Glucose 184 mg/dL (65-115); Osmolality Calculated 293 mOsm/kg (285-295); Potassium 3.6 mmol/L (3.5-5.1); Sodium 141 mmol/L (136-145); Total Bilirubin 0.3 mg/dL (0.15-1.2); Total Protein 6.7 g/dL (6.6-8.7)
[2020-01-01 06:04] LABS: Magnesium 1.6 mg/dL (1.7-2.3)
[2020-01-01 06:22] LABS: Glucose Point of Care 185 mg/dL (70-110)
[2020-01-01] MEDS: levothyroxine 25 mcg Tablet PO (08:14)
[2020-01-01] MEDS: metoprolol tartrate 50 mg Tablet PO ×2 (08:15→20:56)
[2020-01-01] MEDS: levETIRAcetam 500 mg Tablet PO ×2 (08:15→18:48)
[2020-01-01] MEDS: pantoprazole DR 40 mg Tablet PO (08:15)
[2020-01-01] MEDS: aspirin 81 mg EC Tablet PO (08:15)
[2020-01-01] MEDS: atorvastatin 40 mg Tablet 20 MG PO (08:15)
[2020-01-01] MEDS: apixaban 5 mg Tablet PO ×2 (08:15→18:48)
[2020-01-01] MEDS: sulfamethoxazole-trimeth DS 160-800 mg Tablet 1 TAB PO ×2 (08:16→18:48)
[2020-01-01] MEDS: levothyroxine 150 mcg Tablet PO (08:16)
[2020-01-01] MEDS: lisinopril 10 mg Tablet PO (08:16)
[2020-01-01] MEDS: dilTIAZem ER (24HR) 120 mg Capsule PO (08:28)
[2020-01-01] MEDS: magnesium sulfate premix 2 GM/50 ML PIGGYBACK IV (08:29)
--- NOTE | 2020-01-01 10:02 | PC.SOCIAL ---
IMM Update Pg 2 of IMM given and explained to patient who verbalized understanding. Signed, dated, and timed, and placed in chart. Copy provided to patient.
--- NOTE | 2020-01-01 11:52 | PM.PN ---
Subjective Subjective: Interval history: Gianluca reports she is feeling a little bit better. No specific concerns currently. No chest pain. Medications: Reviewed: Yes Vitals/I&O/Wt Last Vital Signs Temp 98.0 F 01/01/20 10:51 Pulse 78 01/01/20 10:51 Resp 23 H 01/01/20 10:51 BP 116/83 01/01/20 10:51 Pulse Ox 92 01/01/20 10:51 12/31/19 01/01/20 01/01/20 22:59 06:59 14:59 Intake Total 240 / 1200 120 / 1320 530 / 530 Balance 240 / 450 120 / 570 530 / 530 Physical Exam Narrative: EXAM NARRATIVE: General exam is no apparent distress. Heart rate earlier this morning elevated but Cardizem has been started by cardiology and heart rate improved this afternoon. Cardiovascular regular rate and rhythm without murmur Lungs clear Abdomen is soft with positive bowel sounds Extremities no cyanosis clubbing or edema Data : 12/30/19 03:23 01/01/20 04:11 A&P Assessment and plan (1) Bradycardia: Sinus bradycardia on admission, on home medicines digoxin, metoprolol, diltiazem. She required a dopamine drip. She is now off the dopamine drip doing better, and low-dose metoprolol has been started. Cardiology is following. Continue metoprolol Note the diltiazem has been added Supplement magnesium today Probable discharge tomorrow Status: Acute Code(s): R00.1 - Bradycardia, unspecified (2) UTI (urinary tract infection): May be contaminated. Bactrim is been started. Culture pending. Status: Acute Code(s): N39.0 - Urinary tract infection, site not specified (3) Dementia: Stable Status: Acute Code(s): F03.90 - Unspecified dementia without behavioral disturbance (4) Generalized seizure disorder: Placed on Keppra 500 mg twice a day this hospitalization. Last seizure 2 weeks ago. Continue close monitoring. Recent admission outlying hospital. Status: Acute Code(s): G40.309 - Generalized idiopathic epilepsy and epileptic syndromes, not intractable, without status epilepticus (5) Severe obstructive sleep apnea: Ordered patient's CPAP Status: Acute Code(s): G47.33 - Obstructive sleep apnea (adult) (pediatric) (6) Seizure: Placed on Keppra Status: Acute Code(s): R56.9 - Unspecified convulsions (7) ANGIE (acute kidney injury): Improved Status: Acute Code(s): N17.9 - Acute kidney failure, unspecified (8) Paroxysmal A-fib: Continue Eliquis See comments above regarding bradycardia Status: Acute Code(s): I48.0 - Paroxysmal atrial fibrillation (9) CHF (congestive heart failure): Compensated currently Continue to try to wean oxygen Status: Acute Code(s): I50.9 - Heart failure, unspecified (10) Hypothyroidism: TSH elevated. Consider increasing levothyroxine on discharge. Status: Acute Code(s): E03.9 - Hypothyroidism, unspecified Additional A&P Information Past history of CVA, left parietal and right cerebellar. Continue Eliquis. Probable discharge tomorrow to skilled care if heart rate remains stable Attestations Medical Necessity Statement*: Needs continued hospitalization for adjustment of medications secondary to atrial fibrillation, initially bradycardic and now with rapid ventricular rate. Coding Level of Care Code Acute Aerospace Mechanic for Chg Fwd Diagnoses Bradycardia R00.1 UTI (urinary tract infection) N39.0 Dementia F03.90 Generalized seizure disorder G40.309 Severe obstructive sleep apnea G47.33 Seizure R56.9 ANGIE (acute kidney injury) N17.9 Paroxysmal A-fib I48.0 CHF (congestive heart failure) I50.9 Hypothyroidism E03.9
[2020-01-01 11:55] LABS: Glucose Point of Care 239 mg/dL (70-110)
[2020-01-01 17:28] LABS: Glucose Point of Care 262 mg/dL (70-110)
--- NOTE | 2020-01-01 19:22 | PM.PN ---
Subjective Subjective: Interval history: Patient is in A. fib with fast ventricular response. Medications: Reviewed: Yes Vitals/I&O/Wt Last Vital Signs Temp 99.0 F 01/01/20 19:18 Pulse 63 01/01/20 19:18 Resp 16 01/01/20 19:18 BP 130/85 01/01/20 19:18 Pulse Ox 92 01/01/20 19:18 01/01/20 01/01/20 01/01/20 06:59 14:59 22:59 Intake Total 120 / 1320 770 / 770 480 / 1250 Balance 120 / 570 770 / 770 480 / 1250 Physical Exam Narrative: EXAM NARRATIVE: GENERAL: Patient is alert, awake and oriented x3. NECK: No jugular vein distension. HEENT: No cyanosis. No icterus. No pallor. HEART: Regularly irregular S1 and S2. No murmur, rub or gallop. LUNGS: Clear to auscultate bilaterally. ABDOMEN: Soft, nontender and nondistended. Positive bowel sounds. No guarding, rebound or tenderness. CENTRAL NERVOUS SYSTEM: Grossly nonfocal. EXTREMITIES: Lower extremities without edema bilaterally. Data : 12/30/19 03:23 01/01/20 04:11 A&P Assessment and plan (1) Bradycardia: Bradycardia is improved now she is more tachycardic Status: Acute Code(s): R00.1 - Bradycardia, unspecified (2) Atrial fibrillation: I will add Cardizem 120 mg to the regimen. Hopefully it will control her heart rate. Continue anticoagulation. Status: Acute Code(s): I48.91 - Unspecified atrial fibrillation (3) Hypertension: Well controlled. Status: Acute Code(s): I10 - Essential (primary) hypertension (4) CHF (congestive heart failure): Well compensated. Continue current management Status: Acute Code(s): I50.9 - Heart failure, unspecified Attestations Medical Necessity Statement*: Required continuation hospitalization for optimization of medicine to control A. fib Coding Level of Care Code Established Pt Acute Human Resources Safety Manager for Chg Fwd Patient Type Established History Expanded Problem Focused Exam Expanded Problem Focused Medical Decision Making Moderate Complexity Diagnoses Bradycardia R00.1 Atrial fibrillation I48.91 Hypertension I10 CHF (congestive heart failure) I50.9
[2020-01-01 21:35] LABS: Glucose Point of Care 244 mg/dL (70-110)
[2020-01-02 03:43] VITALS: BP 126/65; PULSE 61; RESP 16; TEMP 36.6; O2SAT 93
[2020-01-02 04:40] LABS: Basophils % 0.3 %; Eosinophils # 0.1 10^3/uL (0.0-0.8); Eosinophils % 2.1 %; Hematocrit 40.7 % (37.0-47.0); Hemoglobin 12.5 g/dL (11.5-15.3); Lymphocytes # 2.1 10^3/uL (0.8-4.8); Lymphocytes % 35.8 %; Mean Corpuscular HGB Conc 30.7 g/dL (30.0-36.0); Mean Corpuscular Hemoglobin 30.1 pg (28.0-34.0); Mean Corpuscular Volume 98.1 fL (81-99); Mean Platelet Volume 11.2 fL (7.4-10.4); Monocytes # 0.6 10^3/uL (0.2-0.9); Monocytes % 10.5 %; Nucleated Red Blood Cells % 0 %; Platelet Count 221 10^3/cmm (130-400); Red Blood Count 4.15 10^6/uL (4.1-5.3); Red Cell Distribution Width 14.1 % (12.1-15.1); White Blood Count 5.8 10^3/uL (4.0-10.0)
[2020-01-02 04:51] LABS: Alanine Aminotransferase 18 U/L (0-33); Albumin Level 3.1 g/dL (3.5-5.2); Alkaline Phosphatase 81 IU/L (35-105); Anion Gap 14.3 (5-19); Aspartate Amino Transferase 14 U/L (0-32); Blood Urea Nitrogen 25 mg/dL (8-23); Carbon Dioxide 27 mmol/L (22-29); Chloride 102 mmol/L (98-107); Globulin 3.2 g/dL (1.3-4.6); Glucose 237 mg/dL (65-115); Osmolality Calculated 293 mOsm/kg (285-295); Potassium 4.3 mmol/L (3.5-5.1); Sodium 139 mmol/L (136-145); Total Bilirubin 0.2 mg/dL (0.15-1.2); Total Protein 6.3 g/dL (6.6-8.7)
[2020-01-02 06:21] LABS: Glucose Point of Care 205 mg/dL (70-110)
[2020-01-02 07:10] VITALS: BP 106/59; PULSE 62; RESP 15; TEMP 36.7; O2SAT 93
[2020-01-02 08:32] VITALS: PULSE 81; RESP 18; O2SAT 84; O2SAT 94
--- NOTE | 2020-01-02 09:00 | PM.DCS ---
Discharge Providers Date of Admission: 12/29/19 12:45 Date of Discharge: January 02, 2020 Attending Provider at Admission: Meir Nunes MD Attending Provider at Discharge: Aydin Sanchez MD Primary Care Provider: Milton Rodriguez DO Diagnoses at Discharge Discharge Diagnosis (1) Bradycardia: Status: Acute Problem details: Resolved. Digoxin discontinued. She will discharged on metoprolol, Cardizem (2) Atrial fibrillation: Status: Acute Problem details: Good control. Currently in atrial flutter. (3) Hypertension: Status: Acute Problem details: Resolved (4) CHF (congestive heart failure): Status: Acute Problem details: Compensated, although requires 2 L of oxygen. This was likely secondary to accelerated heart rate. Reason for Visit Reason for Visit: Reason For Visit: WEAKNESS/ N/V/ LOW HR Hospital Course Discharge Summary: Gianluca presented to the hospital with bradycardia. She was on 3 rate controlling medications for her atrial fibrillation, flutter. She was placed in the ICU on dopamine. Digoxin, metoprolol, Cardizem were all held. She had some evidence of CHF, likely secondary to her arrhythmia and required diuresis. Cardiology was consulted. Following holding rate limiting medicines her heart rate recovered and she was able to be discontinued off dopamine. Heart rate then ran high and medications were adjusted, ultimately she was placed on some metoprolol and Cardizem which controlled heart rate nicely. She was ready for discharge on January 01. Other changes occurred during the hospitalization including adding of Keppra for reported seizures. Consideration for follow-up with neurology depending on primary's preference. Levothyroxine dose was adjusted as well for elevated TSH. She will also discharge on 2 L of oxygen. She was also discharged with BiPAP. Physical Exam Narrative: EXAM NARRATIVE: General exam no apparent distress Cardiovascular regular rate and rhythm without murmur. Telemetry demonstrates atrial flutter rate controlled of 60-80 Lungs clear Abdomen is soft with positive bowel sounds Extremities no cyanosis clubbing or edema Discharge Data Data Completed and Pending: Completed Studies During Hospitalization Category Date Time Status XR chest 1V merrill ble [id number] Stat Exams 12/29/19 11:03 Completed Pending at discharge Category Date Time Status Urine Culture Sta t Lab 01/01/20 06:40 Results Labs from last 24 hours 01/02/20 01/02/20 01/02/20 06:16 03:00 03:00 WBC 5.8 RBC 4.15 Hgb 12.5 Hct 40.7 MCV 98.1 MCH 30.1 MCHC 30.7 RDW 14.1 Plt Count 221 MPV 11.2 H Neut % (Auto) 51.0 Lymph % (Auto) 35.8 [place] % (Auto) 10.5 Eos % (Auto) 2.1 Baso % (Auto) 0.3 Neut # (Auto) 3.0 Lymph # (Auto) 2.1 [place] # (Auto) 0.6 Eos # (Auto) 0.1 Baso # (Auto) 0.0 Nucleated RBC % (a uto) 0 Nucleated RBCs # 0.0 Sodium 139 Potassium 4.3 Chloride 102 Carbon Dioxide 27 Anion Gap 14.3 BUN 25 H Creatinine 1.0 H Glucose 237 H POC Glucose 205 Calculated Osmolal ity 293 Calcium 10.0 Total Bilirubin 0.2 AST 14 ALT 18 Alkaline Phosphata se 81 Total Protein 6.3 L Albumin 3.1 L Globulin 3.2 01/01/20 01/01/20 01/01/20 21:09 16:31 10:49 WBC RBC Hgb Hct MCV MCH MCHC RDW Plt Count MPV Neut % (Auto) Lymph % (Auto) [place] % (Auto) Eos % (Auto) Baso % (Auto) Neut # (Auto) Lymph # (Auto) [place] # (Auto) Eos # (Auto) Baso # (Auto) Nucleated RBC % (a uto) Nucleated RBCs # Sodium Potassium Chloride Carbon Dioxide Anion Gap BUN Creatinine Glucose POC Glucose 244 262 239 Calculated Osmolal ity Calcium Total Bilirubin AST ALT Alkaline Phosphata se Total Protein Albumin Globulin Vitals: Last Vital Signs Temp 98.0 F 01/02/20 07:10 Pulse 81 01/02/20 08:32 Resp 18 01/02/20 08:32 BP 106/59 01/02/20 07:10 Pulse Ox 84 L 01/02/20 08:32 Discharge Plan Discharge Patient Disposition: Home, Self-Care Condition: Stable Prescriptions: New levothyroxine 25 mcg Tablet 25 mcg PO DAILY Qty: 30 RF: 0 lisinopril 10 mg Tablet 10 mg PO DAILY Qty: 30 RF: 0 metoprolol tartrate 50 mg Tablet 50 mg PO Q12H Qty: 60 RF: 0 levetiracetam 500 mg Tablet 500 mg PO BID Qty: 60 RF: 0 Continued Eliquis 5 mg tablet 5 mg PO BID RF: 0 diltiazem HCl [Cardizem CD] 120 mg capsule,extended release 24hr 120 mg PO BID RF: 0 Advair HFA 115-21 mcg/actuation HFA aerosol inhaler 2 puff INHALATION Q12H RF: 0 omeprazole 20 mg capsule,delayed release(DR/EC) 20 mg PO DAILY RF: 0 aspirin [Adult Low Dose Aspirin] 81 mg tablet,delayed release (DR/EC) 81 mg PO DAILY RF: 0 biotin 5 mg capsule 5 mg PO DAILY RF: 0 albuterol sulfate [Ventolin HFA] 90 mcg/actuation HFA aerosol inhaler 2 puff INHALATION Q6H PRN (Reason: Shortness Of Breath) RF: 0 escitalopram oxalate [Lexapro] 10 mg tablet 20 mg PO DAILY RF: 0 alprazolam 0.25 mg tablet 0.25 mg PO BID PRN (Reason: Anxiety) RF: 0 levothyroxine 150 mcg tablet 150 mcg PO DAILY RF: 0 metformin 1,000 mg tablet extended release 24hr 1,000 mg PO BID RF: 0 glimepiride 4 mg tablet 4 mg PO DAILY RF: 0 (DME) BIPAP MACHINE Qty: 1 RF: 0 (DME) BIPAP MASK Qty: 1 RF: 2 (DME) BIPAP SUPPLIES Qty: 1 RF: 2 atorvastatin 20 mg Tablet 20 mg PO DAILY RF: 0 Discontinued lisinopril 10 mg tablet 40 mg PO DAILY RF: 0 digoxin 62.5 mcg (0.0625 mg) tablet 125 mcg PO DAILY RF: 0 hydrochlorothiazide 25 mg tablet 25 mg PO DAILY RF: 0 potassium gluconate 595 mg (99 mg) tablet 595 mg PO DAILY RF: 0 metoprolol tartrate 100 mg Tablet 100 mg PO BID RF: 0 Discharge Orders: Discharge Order (Routine); Ordered 01/02/20 Ordered By: Aydin Sanchez Other Ambulatory Orders: DME: Oxygen (Order) Location: None Selected Ordered By: Aydin Sanchez Referrals: Oanh Caballero MD [Physician] - 2 weeks Milton Rodriguez DO [Primary Care Provider] - 4-7 days Discharge Activity: Resume usual activity Activity Restrictions/Additional Instructions: Seizure precautions. Primary care provider may refer you to neurology. Take all medicines as prescribed. Discharge Attestations Time Spent in Discharge Care*: greater than 30 min Quality Metrics Clinical Quality Measures During this hospital stay, did patient experience: None Coding Level of Care Code Acute Loom Changeover Operator for Morgan Sanchez Diagnoses Bradycardia R00.1 Atrial fibrillation I48.91 Hypertension I10 CHF (congestive heart failure) I50.9
[2020-01-02] MEDS: metoprolol tartrate 50 mg Tablet PO (09:32)
[2020-01-02] MEDS: levothyroxine 150 mcg Tablet PO (09:32)
[2020-01-02] MEDS: atorvastatin 40 mg Tablet 20 MG PO (09:32)
[2020-01-02] MEDS: sulfamethoxazole-trimeth DS 160-800 mg Tablet 1 TAB PO (09:32)
[2020-01-02] MEDS: lisinopril 10 mg Tablet PO (09:32)
[2020-01-02] MEDS: pantoprazole DR 40 mg Tablet PO (09:33)
[2020-01-02] MEDS: levETIRAcetam 500 mg Tablet PO (09:33)
[2020-01-02] MEDS: dilTIAZem ER (24HR) 120 mg Capsule PO (09:33)
[2020-01-02] MEDS: apixaban 5 mg Tablet PO (09:33)
[2020-01-02] MEDS: aspirin 81 mg EC Tablet PO (09:33)
[2020-01-02] MEDS: levothyroxine 25 mcg Tablet PO (09:37)
[2020-01-02 10:13] VITALS: PULSE 81; RESP 18; O2SAT 94
--- NOTE | 2020-01-02 11:28 | PM.PN ---
Subjective Subjective: Interval history: Heart rate is under control now into 70s and 80s. Rhythm continues to be in atrial fibrillation. Medications: Reviewed: Yes Vitals/I&O/Wt Last Vital Signs Temp 98.0 F 01/02/20 07:10 Pulse 81 01/02/20 10:13 Resp 18 01/02/20 10:13 BP 106/59 01/02/20 07:10 Pulse Ox 94 01/02/20 10:13 01/01/20 01/02/20 01/02/20 22:59 06:59 14:59 Intake Total 530 / 1300 Output Total 200 / 200 Balance 530 / 1300 -200 / 1100 Physical Exam Narrative: EXAM NARRATIVE: GENERAL: Patient is alert, awake and oriented x3. NECK: No jugular vein distension. HEENT: No cyanosis. No icterus. No pallor. HEART: Regularly irregular S1 and S2. No murmur, rub or gallop. LUNGS: Clear to auscultate bilaterally. ABDOMEN: Soft, nontender and nondistended. Positive bowel sounds. No guarding, rebound or tenderness. CENTRAL NERVOUS SYSTEM: Grossly nonfocal. EXTREMITIES: Lower extremities without edema bilaterally. Data : 01/02/20 03:00 01/02/20 03:00 Micro: Microbiology 01/01/20 06:40 Urine Culture - Preliminary Urine,Voided A&P Assessment and plan (1) Bradycardia: Bradycardia has improved. Status: Acute Code(s): R00.1 - Bradycardia, unspecified (2) Atrial fibrillation: Heart rate is optimally controlled continues to be in A. fib and asymptomatic. Patient is on anticoagulation we will continue 50 mg of metoprolol twice a day and 120 mg of Cardizem once a day. Digoxin has been discontinued. Status: Acute Qualifiers: Atrial fibrillation type: other persistent Qualified Code(s): I48.19 - Other persistent atrial fibrillation Code(s): I48.91 - Unspecified atrial fibrillation (3) Hypertension: Well controlled. Status: Acute Qualifiers: Hypertension type: essential hypertension Qualified Code(s): I10 - Essential (primary) hypertension Code(s): I10 - Essential (primary) hypertension (4) CHF (congestive heart failure): Well compensated. Continue current management Status: Acute Qualifiers: Heart failure type: diastolic Heart failure chronicity: chronic Qualified Code(s): I50.32 - Chronic diastolic (congestive) heart failure Code(s): I50.9 - Heart failure, unspecified Attestations Medical Necessity Statement*: Patient can be discharged from cardiovascular perspective. She is going to follow up with Lucie Hudson in [address] Guzman as scheduled Coding Level of Care Code Established Pt Acute Public Information Relations Manager for g Fwd Patient Type Established History Expanded Problem Focused Exam Expanded Problem Focused Medical Decision Making Moderate Complexity Diagnoses Bradycardia R00.1 Atrial fibrillation I48.19 Atrial fibrillation type: other persistent Hypertension I10 Hypertension type: essential hypertension CHF (congestive heart failure) I50.32 Heart failure type: diastolic Heart failure chronicity: chronic
== END 2020-01-02 10:45 | disposition home or self-care (01) | DRG 309 ==
LOC: ER 12:49 → ICU 14:02 → CSU 12-31 15:42
PROVIDERS: Admitting Provider Family Medicine; Emergency Provider Emergency Medicine; Family Provider Electrodiagnostic Medicine; PCP Electrodiagnostic Medicine; Visit Provider Internal Medicine
DX: I48.0 Paroxysmal atrial fibrillation (principal); N39.0 Urinary tract infection, site not specified; N17.9 Acute kidney failure, unspecified; R00.1 Bradycardia, unspecified; I11.0 Hypertensive heart disease with heart failure; I50.9 Heart failure, unspecified; E03.9 Hypothyroidism, unspecified; F03.90 Unspecified dementia, unspecified severity, without behavioral disturbance, psychotic disturbance, mood disturbance, and anxiety; G40.309 Generalized idiopathic epilepsy and epileptic syndromes, not intractable, without status epilepticus; G47.33 Obstructive sleep apnea (adult) (pediatric); Z79.51 Long term (current) use of inhaled steroids; Z79.82 Long term (current) use of aspirin; Z79.83 Long term (current) use of bisphosphonates; Z79.890 Hormone replacement therapy
CPT/HCPCS: 12345; 36415; 36416; 71045; 80053; 80162; 81001; 82962; 83036; 83735; 83880; 84100; 84443; 84484; 85025; 85610; 87086; 93005; 96372; 96375; 99283; J1265; J1815; J1940; J2550; J3475; J7030

== ENCOUNTER → 2020-01-11 10:34 | Outpatient (BNVA) | payer MEDICARE, OTHER, SELFPAY | PROVIDERS: Family Provider Electrodiagnostic Medicine; PCP Nurse Practitioner; Visit Provider Specialist | DX: R29.90 Unspecified symptoms and signs involving the nervous system (principal); G40.309 Generalized idiopathic epilepsy and epileptic syndromes, not intractable, without status epilepticus; G47.33 Obstructive sleep apnea (adult) (pediatric) | CPT/HCPCS: 99214 ==

== ENCOUNTER 2020-03-20 18:20 | Inpatient (IN) | payer MEDICARE, OTHER, SELFPAY ==
[2020-03-20 18:28] VITALS: BP 178/126; PULSE 125; RESP 24; TEMP 36.8; O2SAT 97; BMI 35.2
--- NOTE | 2020-03-20 19:02 | XR_ITS ---
WS: [id number] PORTABLE CHEST HISTORY: SOB COMPARISON: 12/29/2019 Interval development of mild pulmonary venous congestion. No focal consolidation. LEFT costophrenic a ngle is obscured by the soft tissue. Small bilateral pleural effusions. Cardiac size: Moderately enlarged cardiac silhouette. Mediastinum/Aorta: Mild atherosclerosis aorta. No osseous abnormality seen. XR/XR chest 1V portable [id number] IMPRESSION: Interval development of moderate CHF with increasing heart size and small bilat eral effusions.
--- NOTE | 2020-03-20 19:03 | ECG_ITS ---
Measurements Intervals [place] Rate: 124 P: TX: 0 QRS: 73 QRSD: 83 T: 69 QT: 358 QTc: 515 ATRIAL FIBRILLATION WITH RAPID VENTRICULAR RESPONSE NONSPECIFIC ST & T-WAVE ABNORMALITY ABNORMAL RHYTHM ECG Compared to ECG 12/29/2019 13:02:39 T-wave abnormality now present Electronically Signed On 03-21-2020 11:46:33 CDT by Rush Caruso M.D. [email or web address]
[2020-03-20 19:14] LABS: Basophils # 0.1 10^3/uL (0.0-0.1); Basophils % 0.5 %; Eosinophils # 0.2 10^3/uL (0.0-0.8); Eosinophils % 1.6 %; Hematocrit 48.6 % (37.0-47.0); Hemoglobin 14.7 g/dL (11.5-15.3); Lymphocytes # 2.6 10^3/uL (0.8-4.8); Lymphocytes % 27.6 %; Mean Corpuscular HGB Conc 30.2 g/dL (30.0-36.0); Mean Corpuscular Hemoglobin 28.3 pg (28.0-34.0); Mean Corpuscular Volume 93.6 fL (81-99); Mean Platelet Volume 11.9 fL (7.4-10.4); Monocytes # 0.9 10^3/uL (0.2-0.9); Monocytes % 9.4 %; Neutrophils # 5.7 10^3/uL (1.8-7.7); Neutrophils % 60.6 %; Nucleated Red Blood Cells % 0 %; Platelet Count 272 10^3/cmm (130-400); Red Blood Count 5.19 10^6/uL (4.1-5.3); Red Cell Distribution Width 14.9 % (12.1-15.1); White Blood Count 9.4 10^3/uL (4.0-10.0)
[2020-03-20 19:34] LABS: D Dimer 1.48 ug/mIFEU (0-0.59)
[2020-03-20 19:41] LABS: Troponin(5th) Baseline 18 ng/mL (0-10)
--- NOTE | 2020-03-20 19:44 | ED_ITS ---
HPI - SOB/Dyspnea General: Chief Complaint: Shortness of Breath/Dyspnea Stated Complaint: sob Time Seen by Provider: 03/20/20 18:41 Source: patient and EMS Mode of arrival: EMS Limitations: no limitations History of Present Illness: HPI Narrative: This 74-year-old female patient with a past medical history of atrial fibrillation, diabetes mellitus, congestive heart failure, COPD, seizure, prior CVA, chronic respiratory failure on oxygen at 2 L/min, sleep apnea. She presents with a progressively worsening shortness of breath. Symptoms became severe about 3 weeks ago and has gradually worsened. She has dyspnea on exertion on dyspnea on laying down. She denies any fever, has some cough. She is here for evaluation. MD elicited complaint: shortness of breath Pertinent past history: COPD, congestive heart failure and diabetes Onset (ago): week(s) (3) Timing: constant and progressively worsening Severity: moderate Exacerbating factors: lying flat and exertion Relieving factors: nothing Known history of: COPD and congestive heart failure Associated symptoms: Deny abdominal pain, fever(s), nausea, palpitations, polydipsia, polyuria or vomiting Review of Systems General: Reports: 10 or more systems reviewed and unremarkable except in HPI and below Const: Denies: fever(s), chills or body aches Eyes: Denies: change in vision or blurry vision ENMT: Denies: throat pain, enlarged tonsils, odynophagia, hoarseness, mouth pain or swelling of lips/tongue Card: Denies: palpitations, irregular heart rhythm, edema or swelling of feet/ankles Resp: Reports: dyspnea; Denies: productive cough or non-productive cough GI: Denies: abdominal pain, nausea or vomiting : Denies: flank pain, difficulty voiding, dysuria, urinary frequency, urinary urgency or urinary hesitancy Musc: Denies: neck pain, back pain or extremity swelling Skin/Breast: Denies: rash, pruritus or erythema Neuro: Denies: headache(s), numbness in extremities or weakness in extremities Endo: Denies: polyuria, polydipsia or tired all the time [facility] ED PFSH: Medical History (Updated 03/20/20 @ 22:43 by Gosia Desai [place], [facility] [place] Atrial dysrhythmia Atrial fibrillation . 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, managed as type 2 Diastolic heart failure Drug-induced bradycardia Digoxin was discontinued along beta-alexandrea Heart failure Hypertension Hypothyroidism Paroxysmal A-fib Seizure Sleep apnea in adult Stroke due to embolism of left middle cerebral artery Family History Sister Diabetes Father Heart disease Mother Heart disease Social History Smoking and tobacco status: former smoker Alcohol intake: never History of recent travel: No Physical Exam Const: COMMON NORMALS: no acute distress, average body habitus, patient oriented x3, no limitations, healthy appearing, alert and well nourished Neck/C-Spine: COMMON NORMALS: full ROM, supple, no meningeal signs, no JVD and No carotid bruits Resp: COMMON NORMALS: No retractions and percussion normal EFFORT & INSPECTION: Yes labored AUSCULTATION: rales and diminished lung sounds bilateral PERCUSSION: percussion normal Cardio: COMMON NORMALS: no JVD, S1 normal heart sound present, S2 normal heart sound present, No gallops present (Cardio), No clicks present (Cardio), No murmurs present (Cardio), No rub (Cardio) and Peripheral pulses 2+ throughout RATE: tachycardic RHYTHM: abnormal rhythm regularly irregular HEART SOUNDS: S1 normal heart sound present and S2 normal heart sound present PERIPHERAL PULSES: Peripheral pulses 2+ throughout GI: COMMON NORMALS: Normal to inspection, nondistended, normoactive bowel sounds present, Soft to palpation, non-tender, No hepatosplenomegaly present, no masses and no bruits PALPATION: Yes Soft to palpation and Yes No hepatosplenomegaly present : COMMON NORMALS: Yes no CVA tenderness BLADDER/KIDNEY EXAM: Yes no CVA tenderness Back/Pelvis: COMMON NORMALS: no CVA tenderness Extremity: COMMON NORMALS: normal to inspection, full ROM, capillary refill normal, no calf tenderness and no pedal edema Neuro: COMMON NORMALS: patient oriented x3 SENSORIUM/ORIENTATION: Yes alert MENINGEAL SIGNS: Yes no meningeal signs Skin: COMMON NORMALS: no rashes or lesions noted, no wounds, turgor normal, no jaundice, no petechiae and no mottling GENERAL SKIN EXAM: no rashes or lesions noted and turgor normal Course Consultations: Consultation #1: Dr. Amor, hospitalist. He kindly accepted the patient to his service Vital Signs: Vital signs: Vital Signs Temperature 98.2 F 03/20/20 18:28 Pulse Rate 63 03/20/20 22:37 Respiratory Rate 37 H 03/20/20 22:37 Blood Pressure 155/80 03/20/20 22:37 Pulse Oximetry 95 03/20/20 22:37 MDM - SOB/Dyspnea MDM Narrative: Medical decision making narrative: 74-year-old female patient who presents to the emergency department with progressively worsening shortness of breath. On evaluation in the emergency department she was found to be in atrial flutter with a rapid ventricular rate, congestive heart failure exacerbation and bilateral pleural effusions. Baseline troponin mildly elevated but 2 hour delta is flat. She is admitted for further evaluation and management. Differential Diagnosis: Shortness of Breath Differential Diagnosis: Likely acute exacerbation of chronic obstructive airways disease, congestive heart failure, community acquired pneumonia and pulmonary embolism Lab Data: Labs: Lab Results 03/20/20 03/20/20 03/20/20 Range/Units 18:40 18:40 18:40 WBC 9.4 (4.0-10.0) 10^3/ uL RBC 5.19 (4.1-5.3) 10^6/u L Hgb 14.7 (11.5-15.3) g/dL Hct 48.6 H (37.0-47.0) % MCV 93.6 (81-99) fL MCH 28.3 (28.0-34.0) pg MCHC 30.2 (30.0-36.0) g/dL RDW 14.9 (12.1-15.1) % Plt Count 272 (130-400) 10^3/c mm MPV 11.9 H (7.4-10.4) fL Neut % (Auto) 60.6 % Lymph % (Auto) 27.6 % Cecil % (Auto) 9.4 % Eos % (Auto) 1.6 % Baso % (Auto) 0.5 % Neut # (Auto) 5.7 (1.8-7.7) 10^3/u L Lymph # (Auto) 2.6 (0.8-4.8) 10^3/u L Cecil # (Auto) 0.9 (0.2-0.9) 10^3/u L Eos # (Auto) 0.2 (0.0-0.8) 10^3/u L Baso # (Auto) 0.1 (0.0-0.1) 10^3/u L Nucleated RBC % (a uto) 0 % Nucleated RBCs # 0.0 /100WBC D-Dimer 1.48 H (0-0.59) ug/mIFE U Sodium 142 (136-145) mmol/L Potassium 4.1 (3.5-5.1) mmol/L Chloride 103 (98-107) mmol/L Carbon Dioxide 26 (22-29) mmol/L Anion Gap 17.1 (5-19) BUN 19 (8-23) mg/dL Creatinine 0.8 (0.5-0.9) mg/dL Glucose 172 H (65-115) mg/dL Calculated Osmolal ity 295 (285-295) mOsm/k g Lactic Acid (0.5-2.2) mmol/L Calcium 9.7 (8.5-10.5) mg/dL Total Bilirubin 0.4 (0.15-1.2) mg/dL AST 37 H (0-32) U/L ALT 91 H (0-33) U/L Alkaline Phosphata se 112 H (35-105) IU/L Troponin T Baselin e (0-10) ng/mL Troponin T 120 Min [place] (0-10) ng/mL Delta Troponin T (0-10) ABS# NT-Pro-B Natriuret Pep 8489 H (0-125) pg/mL Total Protein 6.5 L (6.6-8.7) g/dL Albumin 4.0 (3.5-5.2) g/dL Globulin 2.5 (1.3-4.6) g/dL Influenza Type A A g (Negative) Influenza Type B A g (Negative) 03/20/20 03/20/20 03/20/20 Range/Units 18:40 18:40 19:17 WBC (4.0-10.0) 10^3/ uL RBC (4.1-5.3) 10^6/u L Hgb (11.5-15.3) g/dL Hct (37.0-47.0) % MCV (81-99) fL MCH (28.0-34.0) pg MCHC (30.0-36.0) g/dL RDW (12.1-15.1) % Plt Count (130-400) 10^3/c mm MPV (7.4-10.4) fL Neut % (Auto) % Lymph % (Auto) % Cecil % (Auto) % Eos % (Auto) % Baso % (Auto) % Neut # (Auto) (1.8-7.7) 10^3/u L Lymph # (Auto) (0.8-4.8) 10^3/u L Cecil # (Auto) (0.2-0.9) 10^3/u L Eos # (Auto) (0.0-0.8) 10^3/u L Baso # (Auto) (0.0-0.1) 10^3/u L Nucleated RBC % (a uto) % Nucleated RBCs # /100WBC D-Dimer (0-0.59) ug/mIFE U Sodium (136-145) mmol/L Potassium (3.5-5.1) mmol/L Chloride (98-107) mmol/L Carbon Dioxide (22-29) mmol/L Anion Gap (5-19) BUN (8-23) mg/dL Creatinine (0.5-0.9) mg/dL Glucose (65-115) mg/dL Calculated Osmolal ity (285-295) mOsm/k g Lactic Acid 2.0 (0.5-2.2) mmol/L Calcium (8.5-10.5) mg/dL Total Bilirubin (0.15-1.2) mg/dL AST (0-32) U/L ALT (0-33) U/L Alkaline Phosphata se (35-105) IU/L Troponin T Baselin e 18 H (0-10) ng/mL Troponin T 120 Min [place] (0-10) ng/mL Delta Troponin T (0-10) ABS# NT-Pro-B Natriuret Pep (0-125) pg/mL Total Protein (6.6-8.7) g/dL Albumin (3.5-5.2) g/dL Globulin (1.3-4.6) g/dL Influenza Type A A g Negative (Negative) Influenza Type B A g Negative (Negative) 05/27/20 Range/Units 21:20 WBC (4.0-10.0) 10^3/ uL RBC (4.1-5.3) 10^6/u L Hgb (11.5-15.3) g/dL Hct (37.0-47.0) % MCV (81-99) fL MCH (28.0-34.0) pg MCHC (30.0-36.0) g/dL RDW (12.1-15.1) % Plt Count (130-400) 10^3/c mm MPV (7.4-10.4) fL Neut % (Auto) % Lymph % (Auto) % Cecil % (Auto) % Eos % (Auto) % Baso % (Auto) % Neut # (Auto) (1.8-7.7) 10^3/u L Lymph # (Auto) (0.8-4.8) 10^3/u L Cecil # (Auto) (0.2-0.9) 10^3/u L Eos # (Auto) (0.0-0.8) 10^3/u L Baso # (Auto) (0.0-0.1) 10^3/u L Nucleated RBC % (a uto) % Nucleated RBCs # /100WBC D-Dimer (0-0.59) ug/mIFE U Sodium (136-145) mmol/L Potassium (3.5-5.1) mmol/L Chloride (98-107) mmol/L Carbon Dioxide (22-29) mmol/L Anion Gap (5-19) BUN (8-23) mg/dL Creatinine (0.5-0.9) mg/dL Glucose (65-115) mg/dL Calculated Osmolal ity (285-295) mOsm/k g Lactic Acid (0.5-2.2) mmol/L Calcium (8.5-10.5) mg/dL Total Bilirubin (0.15-1.2) mg/dL AST (0-32) U/L ALT (0-33) U/L Alkaline Phosphata se (35-105) IU/L Troponin T Baselin e (0-10) ng/mL Troponin T 120 Min [place] 17.89 H (0-10) ng/mL Delta Troponin T -0.11 L (0-10) ABS# NT-Pro-B Natriuret Pep (0-125) pg/mL Total Protein (6.6-8.7) g/dL Albumin (3.5-5.2) g/dL Globulin (1.3-4.6) g/dL Influenza Type A A g (Negative) Influenza Type B A g (Negative) Imaging Data^: CTA Chest: Radiologist's impression: [place] [address] CT Scan Report Signed Patient: Finn Goode #: [id number] : 8Acct#:[id number] Age/Sex: 74 / FADM Date: 03/20/20 Loc: ERRoom/Bed: Attending Dr: Ordering Provider/Ordering MD: Gosia Desai MD, [facility] [place] Date of Service: 03/20/20 Procedure(s): CT angio chest PE [facility] [id number] Accession Number(s): [id number] Report Number: [id number] PROCEDURE INFORMATION: Exam: CT Angiography Chest With Contrast Exam date and time: 03/20/2020 8:57 PM Age: 74 years old Clinical indication: Dyspnea and shortness of breath; Additional info: SOB, tachycardia TECHNIQUE: Imaging protocol: Computed tomographic angiography of the chest with intravenous contrast. 3D rendering: MIP and/or 3D reconstructed images were created by the technologist. Radiation optimization: All CT scans at this facility use at least one of these dose optimization techniques: automated exposure control; mA and/or kV adjustment per patient size (includes targeted exams where dose is matched to clinical indication); or iterative reconstruction. Contrast material: OMNI 350; Contrast volume: 85 ml; Contrast route: IV; COMPARISON: CR XR chest 1V portable [id number] 03/20/2020 7:05 PM RADIATION DOSE METRICS: Total DLP: 575.14 mGy-cm FINDINGS: Pulmonary arteries: Normal. No pulmonary emboli. Aorta: Unremarkable. No aortic aneurysm. No aortic dissection. Lungs: Bilateral dependent atelectasis versus infiltrates. Pleural space: Large bilateral pleural effusions. Heart: Coronary artery atherosclerotic calcifications. Cardiomegaly. Lymph nodes: Scattered enlarged mediastinal lymph nodes measuring up to 18 mm, nonspecific. Bones/joints: Unremarkable. No acute fracture. Soft tissues: Unremarkable. CT/CT angio chest PE protcl [id number] IMPRESSION: 1. Negative for pulmonary embolus 2. Large bilateral pleural effusions. 3. Bilateral dependent atelectasis versus infiltrates. 4. Scattered enlarged mediastinal lymph nodes measuring up to 18 mm, nonspecific. 5. Coronary artery atherosclerotic calcifications. 6. Cardiomegaly. Radiation Dose CTDIVOL = (mGy): DLP = 575.14 (mGy-cm) Dictated By:Robert Santana MD Signed By:Robert Santana MDSigned Date/Time:03/20/202136 DD/ 34 EKG Data^: EKG 1: Attestation: I personally reviewed and interpreted this EKG as follows: EKG Interpretation Date: 03/20/20 EKG interpretation time: 19:38 Prior EKG tracings: not available for review Interpretation: Atrial flutter. Heart rate is [address] changes. EKG 2: Attestation: I personally reviewed and interpreted this EKG as follows: EKG Interpretation Date: 03/20/20 EKG interpretation time: 21:12 Prior EKG tracings: available for review Interpretation: Atrial flutter Heart rate 87 bpm Tachycardia now resolved Discharge Plan Discharge Patient Disposition: Admitted As Inpatient Admit Provider: Oanh Amor Clinical Impression: Acute exacerbation of CHF (congestive heart failure), Bilateral pleural effusion Condition: Stable Interventions: ED Discharge Assessment Last Done: 03/20/20 22:37 ED Charges Last Done: 03/20/20 22:37 Discharge Date/Time: 03/20/20 22:41 Coding Level of Care Code ED Leaf Stamper for Chg Fwd Exam Comprehensive
[2020-03-20 19:49] LABS: Alanine Aminotransferase 91 U/L (0-33); Alkaline Phosphatase 112 IU/L (35-105); Anion Gap 17.1 (5-19); Aspartate Amino Transferase 37 U/L (0-32); Blood Urea Nitrogen 19 mg/dL (8-23); Calcium 9.7 mg/dL (8.5-10.5); Carbon Dioxide 26 mmol/L (22-29); Chloride 103 mmol/L (98-107); Creatinine Clr Calc Pharmacy 70.2575; Globulin 2.5 g/dL (1.3-4.6); Glucose 172 mg/dL (65-115); NT Pro B Type Natriuretic Pept 8489 pg/mL (0-125); Osmolality Calculated 295 mOsm/kg (285-295); Potassium 4.1 mmol/L (3.5-5.1); Sodium 142 mmol/L (136-145); Total Bilirubin 0.4 mg/dL (0.15-1.2); Total Protein 6.5 g/dL (6.6-8.7)
[2020-03-20 19:54] LABS: Influenza A by IFA Negative (Negative); Influenza B by IFA Negative (Negative)
--- NOTE | 2020-03-20 20:52 | CTR_ITS ---
PROCEDURE INFORMATION: Exam: CT Angiography Chest With Contrast Exam date and time: 03/20/2020 8:57 PM Age: 74 years old Clinical indication: Dyspnea and shortness of breath; Additional info: SOB, tachycardia TECHNIQUE: Imaging protocol: Computed tomographic angiography of the chest with intravenous contrast. 3D rendering: MIP and/or 3D reconstructed images were created by the technologist. Radiation optimization: All CT scans at this facility use at least one of these dose optimization techniques: automated exposure control; mA and/or kV adjustment per patient size (includes targeted exams where dose is matched to clinical indication); or iterative reconstruction. Contrast material: OMNI 350; Contrast volume: 85 ml; Contrast route: IV; COMPARISON: CR XR chest 1V portable [id number] 03/20/2020 7:05 PM RADIATION DOSE METRICS: Total DLP: 575.14 mGy-cm FINDINGS: Pulmonary arteries: Normal. No pulmonary emboli. Aorta: Unremarkable. No aortic aneurysm. No aortic dissection. Lungs: Bilateral dependent atelectasis versus infiltrates. Pleural space: Large bilateral pleural effusions. Heart: Coronary artery atherosclerotic calcifications. Cardiomegaly. Lymph nodes: Scattered enlarged mediastinal lymph nodes measuring up to 18 mm, nonspecific. Bones/joints: Unremarkable. No acute fracture. Soft tissues: Unremarkable. CT/CT angio chest PE protcl [id number] IMPRESSION: 1. Negative for pulmonary embolus 2. Large bilateral pleural effusions. 3. Bilateral dependent atelectasis versus infiltrates. 4. Scattered enlarged mediastinal lymph nodes measuring up to 18 mm, nonspecific. 5. Coronary artery atherosclerotic calcifications. 6. Cardiomegaly. Radiation Dose CTDIVOL = (mGy): DLP = 575.14 (mGy-cm)
[2020-03-20] MEDS: FUROsemide 10 mg/mL SDV 4mL 40 MG IVP (20:56)
[2020-03-20] MEDS: iohexol 350 mg/mL 100 mL Btl IV (21:02)
--- NOTE | 2020-03-20 21:03 | ECG_ITS ---
Measurements Intervals [place] Rate: 87 P: [place]: 0 QRS: 68 QRSD: 77 T: 95 QT: 374 QTc: [address] DEVIATION AND MODERATE T-WAVE ABNORMALITY, CONSIDER ANTEROLATERAL ISCHEMIA [-0.1+ mV T WAVE IN V3-V6] ST DEVIATION AND MODERATE T-WAVE ABNORMALITY, CONSIDER INFERIOR ISCHEMIA [-0.1+ mV T WAVE IN II/aVF] Compared to ECG 12/29/2019 13:02:39 T-wave abnormality now present Possible ischemia now present Electronically Signed On 03-21-2020 11:49:20 CDT by Rush Caruso M.D. [id number]
--- NOTE | 2020-03-20 21:29 | P.HP_ITS ---
Providers/Chief Complaint Primary Care Provider: Milton Rodriguez DO Chief Complaint: sob History of Present Illness Gianluca Goode is a 74 year old female who carries diagnosis of grade 1 diastolic dysfunction, hypothyroidism, atrial fibrillation, chronic anticoagulation with Eliquis, epilepsy, cognitive impairment due to stroke comi ng in with chief complaint of dyspnea on exertion. Patient is stating that for last 4 to 5 weeks she has been having dyspnea on exertion without any chest pain, nausea or vomiting. It has been gradually getting worse, she has been experiencing orthopnea, PND, has noticed some weight gain, she denying any fever, cough, sputum production or sick contacts. Her shortness of breath has gradually gotten worse and now she can hardly take 10-15 sTEPS. She uses 2 to 3 L of oxygen in the morning and CPAP at night. She is denying dysuria, endorsing alternating bowel movements. Diagnostics in the ER revealed congestive heart failure exacerbation, heart rate fluctuating between 100-1 20 atrial flutter, EKG does not show any ischemic or infarctive changes, she has been given Cardizem 20 mg, it brings her heart rate down to 6O after getting Cardizem push. On previous admission digoxin and metoprolol wERE discontinued because of her bradycardia and Cardizem was continued. Her medication does not include any diuretic, patient is stating that she is compliant with her medications. Review of Systems Const: Reports: fatigue; Denies: fever(s) or body aches Eyes: Denies: change in vision ENMT: Denies: throat pain Card: Reports: edema, dyspnea on exertion and orthopnea; Denies: chest pain Resp: Reports: dyspnea GI: Reports: diarrhea and constipation; Denies: abdominal pain or nausea : Denies: flank pain Musc: Denies: neck pain Skin/Breast: Denies: rash Neuro: Denies: headache(s) Psych: Reports: anxiety Endo: Denies: polyuria Trung/Lymph: Denies: easy bruising All/Imm: Denies: urticaria Medications/Allergies Home Medications Medication Instructions Recorded Confirmed Last Taken Type alprazolam 0.25 mg tablet 0.25 mg PO BID PRN 11/01/19 03/20/20 Unknown History apixaban 5 mg tablet 5 mg PO BID 11/01/19 03/20/20 03/20/20 17:30 History diltiazem HCl 120 mg 120 mg PO BID 11/01/19 03/20/20 12/28/19 History capsule,extended release 24 hr escitalopram oxalate 10 mg tablet 20 mg PO QPM 11/01/19 03/20/20 03/20/20 History glimepiride 4 mg tablet 4 mg PO DAILY 11/01/19 03/20/20 03/20/20 History metformin 1,000 mg tablet,extended 1,000 mg PO BID 11/01/19 03/20/20 03/20/20 History release 24hr BIPAP MACHINE #1 ea 12/05/19 03/20/20 Unknown Rx BIPAP MASK #1 each 12/05/19 03/20/20 Unknown Rx BIPAP SUPPLIES #1 ea 12/05/19 03/20/20 Unknown Rx albuterol sulfate 90 mcg/actuation 2 puff INHALATION Q4H PRN 12/08/19 03/20/20 Unknown History aerosol inhaler aspirin 81 mg tablet,delayed 81 mg PO DAILY 12/08/19 03/20/20 03/20/20 History release biotin 5 mg capsule 5 mg PO DAILY 12/08/19 03/20/20 03/20/20 History omeprazole 20 mg capsule,delayed 20 mg PO DAILY cap 12/08/19 03/20/20 03/20/20 History release atorvastatin 20 mg PO DAILY 12/29/19 03/20/20 12/28/19 History lisinopril 10 mg PO DAILY #30 tab 01/02/20 03/20/20 03/20/20 Rx metoprolol tartrate 50 mg PO Q12H #60 tab 01/02/20 03/20/20 03/20/20 Rx levetiracetam 750 mg 1,500 mg PO DAILY #60 tab 01/11/20 03/20/20 03/20/20 Rx tablet,extended release 24 hr levothyroxine 150 mcg PO DAILY 03/20/20 03/20/20 03/20/20 History Allergies Allergy/AdvReac Type Severity Reaction Status Date / Time tetanus and diphtheria Allergy Unknown Verified 01/11/20 11:12 toxoids penicillin G procaine AdvReac unknown Verified 01/11/20 11:12 PFSH Acute PFSH: Medical History Atrial dysrhythmia Atrial fibrillation . 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, managed as type 2 Diastolic heart failure Drug-induced bradycardia Digoxin was discontinued along beta-alexandrea Heart failure Hypertension Hypothyroidism Paroxysmal A-fib Seizure Sleep apnea in adult Stroke due to embolism of left middle cerebral artery Surgical History (Updated 03/20/20 @ 22:54 by Oanh Amor MD) No pertinent past surgical history Family History Sister Diabetes Father Heart disease Mother Heart disease Social History Smoking and tobacco status: former smoker Alcohol intake: never History of recent travel: No Vitals/I&O/Wt Last Vital Signs Temp 98.2 F 03/20/20 18:28 Pulse 125 H 03/20/20 18:28 Resp 24 H 03/20/20 18:28 BP 178/126 03/20/20 18:28 Pulse Ox 97 03/20/20 18:28 Weight last 48 hrs Weight 92.986 kg Physical Exam Narrative: EXAM NARRATIVE: Head to toe examination Patient is sitting at the bedside without any active discomfort Mild cognitive impairment Atrial flutter heart rate fluctuating between 60-1 20 Systolic blood pressure 160 Variable S1-S2, no significant clinical signs of fluid overload Lungs are clear to auscultation No active respiratory distress Abdomen soft nontender nondistended bowel sound present No lower extremity edema Mild cognitive impairment otherwise appropriate mood and affect No sign of skin ulcer EOMI, PERRLA, Neurologically nonfocal Data : 03/20/20 18:40 03/20/20 18:40 A&P Assessment and plan (1) CHF exacerbation: Status: Acute (2) Diastolic heart failure: Status: Acute (3) Atrial flutter: Status: Acute (4) Severe obstructive sleep apnea: Status: Acute (5) Hypothyroidism: Status: Acute (6) Paroxysmal A-fib: Status: Acute Additional A&P Information Congestive heart failure exacerbation Diastolic grade 1 diastolic dysfunction exacerbation due to tachyarrhythmia On previous admission digoxin and beta-alexandrea were discontinued due to bradycardia, no significant overt clinical signs of fluid overload, she is not taking Lasix, I would add Bumex 1 mg daily Her echo was done in May 2019, would not repeated at this point Atrial flutter with RVR Heart rate fluctuating between 60-1 20, she has received 20 mg of Cardizem push in the ER Systolic blood pressure 160, I would increase her oral Cardizem dose, continue Eliquis 5 mg twice a day Severe sleep apnea: She uses CPAP at night Hypothyroidism: Continue levothyroxine Cognitive impairment due to stroke Patient is awake alert oriented x3, Her granddaughters help her with her medications, She is compliant with her medication Full code Cardiac diet DVT prophylaxis not needed because of Eliquis use Attestations Medical Necessity Statement*: Anticipating discharge in less than 48 hours currently needs diuretic for CHF exacerbation and medication adjustment for atrial flutter RVR Time Spent in Patient Care: 50 Coding Level of Care Code Acute Casting Machine Set Up Operator for Chg Fwd Diagnoses CHF exacerbation I50.9 Diastolic heart failure I50.30 Atrial flutter I48.92 Severe obstructive sleep apnea G47.33 Hypothyroidism E03.9 Paroxysmal A-fib I48.0
[2020-03-20 21:51] LABS: Troponin 5 2HR 17.89 ng/mL (0-10)
[2020-03-20 21:54] LABS: Troponin 5 2HR Delta -0.11 ABS# (0-10)
[2020-03-20 22:37] VITALS: BP 155/80; PULSE 63; RESP 37; O2SAT 95
[2020-03-20 23:02] VITALS: BP 152/79; PULSE 75; RESP 20; TEMP 36.4; O2SAT 94
--- NOTE | 2020-03-21 01:03 | ECG_ITS ---
Measurements Intervals [place] Rate: 106 P: [place]: 0 QRS: 58 QRSD: 79 T: 21 QT: 338 QTc: 450 ATRIAL FIBRILLATION WITH RAPID VENTRICULAR RESPONSE WITH ABERRANT CONDUCTION OR VENTRICULAR PREMATURE COMPLEXES SEPTAL MYOCARDIAL INFARCTION [40+ ms Q WAVE IN V1/V2], PROBABLY OLD MODERATE T-WAVE ABNORMALITY, CONSIDER INFERIOR ISCHEMIA [-0.1+ mV T WAVE IN II/aVF] Compared to ECG 12/29/2019 13:02:39 Ventricular premature complex(es) now present Aberrant conduction of supraventricular beat(s) now present Myocardial infarct finding now present T-wave abnormality now present Possible ischemia now present Electronically Signed On 03-21-2020 11:49:59 CDT by Rush Caruso M.D. [id number]
[2020-03-21 01:43] LABS: Anion Gap 16.7 (5-19); Blood Urea Nitrogen 17 mg/dL (8-23); Carbon Dioxide 30 mmol/L (22-29); Chloride 100 mmol/L (98-107); Creatinine Clr Calc Pharmacy 70.2575; Glucose 167 mg/dL (65-115); Osmolality Calculated 296 mOsm/kg (285-295); Potassium 3.7 mmol/L (3.5-5.1); Sodium 143 mmol/L (136-145)
[2020-03-21 01:50] LABS: Basophils % 0.4 %; Eosinophils # 0.2 10^3/uL (0.0-0.8); Eosinophils % 1.8 %; Hematocrit 47.8 % (37.0-47.0); Hemoglobin 14.4 g/dL (11.5-15.3); Lymphocytes # 2.2 10^3/uL (0.8-4.8); Lymphocytes % 24.6 %; Mean Corpuscular HGB Conc 30.1 g/dL (30.0-36.0); Mean Corpuscular Hemoglobin 28.2 pg (28.0-34.0); Mean Corpuscular Volume 93.7 fL (81-99); Mean Platelet Volume 11.7 fL (7.4-10.4); Monocytes # 0.8 10^3/uL (0.2-0.9); Neutrophils # 5.7 10^3/uL (1.8-7.7); Neutrophils % 63.9 %; Nucleated Red Blood Cells % 0 %; Platelet Count 266 10^3/cmm (130-400); Red Cell Distribution Width 14.9 % (12.1-15.1)
[2020-03-21 01:55] LABS: Troponin 5 6HR 16.77 ng/mL (0-10); Troponin 5 6HR Delta -1.23 ng/L (0-12)
[2020-03-21 03:45] VITALS: BP 154/94; PULSE 113; RESP 18; TEMP 36.8; O2SAT 93
[2020-03-21 07:16] VITALS: BP 158/96; PULSE 109; RESP 16; TEMP 36.4; O2SAT 94
[2020-03-21] MEDS: LEVETIRACETAM 750 MG 750 EACH PO (09:14)
[2020-03-21] MEDS: bumetanide 1 mg Tablet PO (09:14)
[2020-03-21] MEDS: apixaban 5 mg Tablet PO ×2 (09:14→17:21)
[2020-03-21] MEDS: dilTIAZem ER (24HR) 180 mg Capsule PO (09:15)
[2020-03-21] MEDS: aspirin 81 mg EC Tablet PO (09:15)
[2020-03-21] MEDS: atorvastatin 40 mg Tablet 20 MG PO (09:15)
[2020-03-21] MEDS: levothyroxine 25 mcg Tablet 150 MCG PO (09:20)
[2020-03-21] MEDS: lisinopril 10 mg Tablet PO (09:20)
[2020-03-21 11:37] VITALS: BP 150/88; PULSE 92; RESP 16; TEMP 36.7; O2SAT 93
--- NOTE | 2020-03-21 13:56 | P.PN_ITS ---
Subjective Subjective: Interval history: Chart reviewed, has had 1700 mL urine output overnight, hemodynamically stable. Resting quietly in bed, seems quite sleepy though engages appropriately in conversation during my encounter. She feels like her abdomen is less bloated, LE are less swollen. Medications: Reviewed: Yes Medication Review Details: Active Medications Generic Name Dose Route Start Last Admin Trade Name Freq PRN Reason Stop Dose Admin Alprazolam 0.25 mg 03/20/20 22:51 Xanax PO BID PRN Anxiety Apixaban 5 mg 03/21/20 09:00 03/21/20 09:14 Eliquis PO 5 mg BID ART Administration Aspirin 81 mg 03/21/20 09:00 03/21/20 09:15 Aspirin Ec PO 81 mg DAILY ART Administration Atorvastatin Calci um 20 mg 03/21/20 09:00 03/21/20 09:15 Lipitor PO 20 mg DAILY ART Administration Bumetanide 1 mg 03/21/20 09:00 03/21/20 09:14 Bumex PO 1 mg DAILY ART Administration Diltiazem HCl 180 mg 03/21/20 09:00 03/21/20 09:15 Cardizem Cd (24h r) PO 180 mg DAILY ART Administration Escitalopram Oxala te 20 mg 03/21/20 18:00 Lexapro PO QPM ART Levothyroxine Sodi um 150 mcg 03/21/20 09:00 03/21/20 09:20 Synthroid PO 150 mcg DAILY ART Administration Lisinopril 10 mg 03/21/20 09:00 03/21/20 09:20 Prinivil PO 10 mg DAILY ART Administration Non-Formulary Medi cation 750 mg 03/21/20 09:00 03/21/20 09:14 Levetiracetam [K eppra Xr] PO 750 mg DAILY ART Administration tetanus and diphtheria toxoids Allergy (Verified 01/11/20 11:12) Unknown penicillin G procaine Adverse Reaction (Verified 01/11/20 11:12) unknown Vitals/I&O/Wt Last Vital Signs Temp 98.1 F 03/21/20 11:37 Pulse 92 03/21/20 11:37 Resp 16 03/21/20 11:37 BP 150/88 03/21/20 11:37 Pulse Ox 93 03/21/20 11:37 05/03/21/20 03/21/20 22:59 06:59 14:59 Intake Total 250 / 250 460 / 460 Output Total 1700 / 1700 900 / 900 Balance -1450 / -1450 -440 / -440 Weight last 48 hrs Weight 94.149 kg Weight 92.986 kg Physical Exam Const: COMMON NORMALS: no acute distress and patient oriented x3 GENERAL APPEARANCE: cooperative and comfortable NUTRITIONAL APPEARANCE: obese morbidly obese ORIENTATION/CONSCIOUSNESS: Yes awake HENMT: COMMON NORMALS: normocephalic, atraumatic, hearing grossly normal bilaterally and moist oral mucous membranes HEAD & SCALP: normocephalic and atraumatic Eye: COMMON NORMALS: Equal, round and reactive pupils present, EOMs intact bilaterally and conjunctivae normal CONJUNCTIVA: Yes conjunctivae normal PUPIL: Yes Equal, round and reactive pupils present Neck/C-Spine: COMMON NORMALS: full ROM GENERAL: Yes normal visual inspection and Yes trachea midline Chest: CHEST: Yes Symmetrical chest wall rise Resp: COMMON NORMALS: normal respiratory effort, No retractions, No use of accessory muscles and clear to auscultation bilaterally EFFORT & INSPECTION: Yes able to speak in complete sentences, Yes symmetric chest movement and No tachypneic AUSCULTATION: clear to auscultation bilaterally OTHER: -on 2 L NC Cardio: COMMON NORMALS: regular rate, regular rhythm, S1 normal heart sound present, S2 normal heart sound present and No murmurs present (Cardio) RATE: regular rate RHYTHM: regular rhythm HEART SOUNDS: S1 normal heart sound present and S2 normal heart sound present GI: COMMON NORMALS: Normal to inspection, nondistended, normoactive bowel sounds present, Soft to palpation and non-tender INSPECTION: Yes central obesity PALPATION: Yes Soft to palpation Extremity: COMMON NORMALS: normal to inspection, full ROM, no clubbing, cyanosis or edema and no pedal edema Neuro: COMMON NORMALS: patient oriented x3, moves all extremities, no focal motor deficits and no sensory deficits noted Psych: COMMON NORMALS: mental status grossly normal, Normal thought process present, cooperative, normal affect and speech normal SPEECH: Yes normal speech THOUGHT PROCESS: Normal thought process present Skin: COMMON NORMALS: no rashes or lesions noted, no jaundice, no petechiae and no mottling GENERAL SKIN EXAM: no rashes or lesions noted Data : 03/21/20 01:20 03/21/20 01:20 A&P Assessment and plan (1) Acute exacerbation of CHF (congestive heart failure): -Noted acutely decompensated chronic diastolic CHF as evidenced by on exertion, orthopnea, PND, BNP elevation (8489), evidence of fluid overload on imaging -Currently on diuresis with Bumex, so far has had negative fluid balance of 1.9 L -Continue to monitor Is & Os, daily weights -Echo (05/2019): EF=60%, G1DD, no RWMA, trace AR, trace TR -Noted evidence of reported large bilateral pleural effusions on imaging -Monitor respiratory status -Currently hemodynamically stable, continue to monitor vital signs -Has not been on diuretics at home Status: Acute Qualifiers: Heart failure type: unspecified Qualified Code(s): I50.9 - Heart failure, unspecified (2) Atrial fibrillation: -has known hx of atrial fibrillation -presented in atrial flutter with RVR; rate controlled following dose of Cardizem -had previously been taken off digoxin and metoprolol due to bradycardia -telemetry monitoring -on AC with Eliquis -currently rate controlled; continue to monitor vital signs -continue Cardizem -f/u with Dr. Guzman/Dr. Caballero Status: Chronic Qualifiers: Atrial fibrillation type: paroxysmal Qualified Code(s): I48.0 - Paroxysmal atrial fibrillation (3) Bilateral pleural effusion: -as noted above Status: Acute (4) Generalized epilepsy: -f/u with Dr. Randall -on [facility] -seizure precautions Status: Chronic (5) Hypertension: -continue to monitor vital signs -continue ACEi, on diuretics Status: Chronic Qualifiers: Hypertension type: essential hypertension Qualified Code(s): I10 - Essential (primary) hypertension (6) Hypothyroidism: -on levothyroxine Status: Chronic Qualifiers: Hypothyroidism type: unspecified Qualified Code(s): E03.9 - Hypothyroidism, unspecified (7) Stroke due to embolism of left middle cerebral artery: -prior hx of L MCA CVA in 05/2019; did not receive tPA -has been f/u with Dr. Randall -attributed to atrial fibrillation -on ASA, statin, AC with Eliquis -has residual cognitive impairment Status: Chronic (8) Non-insulin dependent diabetes mellitus: -A1c (12/2019): 8.3 -Accucheks, ISS, hypoglycemia precautions -consistent carb diet as tolerated -takes metformin at home, on hold Status: Chronic Additional A&P Information -Morbid obesity: BMI-36 kg/m2 -Hyperlipidemia; on statin -SWETHA; severe; on CPAP; oxygen-dependent 2-3 L NC baseline requirement -GI ppx with PPI -DVT ppx not needed as on Eliquis -Dispo: home -Code status: FULL code Attestations Medical Necessity Statement*: Patient requires hospitalization for continued diuresis secondary to acute diastolic CHF exacerbation. Time Spent in Patient Care: Greater than 35 minutes (>than 50% of time s pent in counselling and/or direct pt care on unit) . Coding Level of Care Code Acute Plasterer Stucco for g Fwd Exam Comprehensive Diagnoses Acute exacerbation of CHF (congestive heart failure) I50.9 Heart failure type: unspecified Atrial fibrillation I48.0 Atrial fibrillation type: paroxysmal Bilateral pleural effusion J90 Generalized epilepsy G40.309 Hypertension I10 Hypertension type: essential hypertension Hypothyroidism E03.9 Hypothyroidism type: unspecified Stroke due to embolism of left middle cerebral artery I63.412 Non-insulin dependent diabetes mellitus
[2020-03-21 15:42] VITALS: BP 147/79; PULSE 65; RESP 16; TEMP 36.4; O2SAT 94
[2020-03-21] MEDS: escitalopram 10 mg Tablet 20 MG PO (17:21)
[2020-03-21 20:00] VITALS: BP 172/92; BP 188/93; PULSE 66; RESP 18; TEMP 36.6; O2SAT 93
[2020-03-21 23:53] VITALS: BP 178/79; PULSE 65; RESP 13; TEMP 36.8; O2SAT 95
[2020-03-22 04:00] VITALS: BP 169/77; PULSE 91; RESP 24; TEMP 36.4; O2SAT 96
[2020-03-22 05:46] VITALS: BMI 36.4
[2020-03-22 07:54] VITALS: BP 137/92; PULSE 112; RESP 16; TEMP 36.5; O2SAT 96
[2020-03-22] MEDS: dilTIAZem ER (24HR) 180 mg Capsule PO (09:31)
[2020-03-22] MEDS: lisinopril 20 mg Tablet PO ×2 (09:32→17:38)
[2020-03-22] MEDS: aspirin 81 mg EC Tablet PO (09:32)
[2020-03-22] MEDS: apixaban 5 mg Tablet PO ×2 (09:32→17:36)
[2020-03-22] MEDS: atorvastatin 40 mg Tablet 20 MG PO (09:32)
[2020-03-22] MEDS: bumetanide 1 mg Tablet PO (09:32)
[2020-03-22] MEDS: levothyroxine 25 mcg Tablet 150 MCG PO (09:32)
[2020-03-22] MEDS: ALPRAZolam 0.25 mg Tablet PO ×2 (09:32→23:10)
--- NOTE | 2020-03-22 10:45 | PC.CHAP ---
Pastoral Care Encounter/Spiritual Assessment Type of Contact [] Declined pipeline integrity engineer visit [] Patient/Family/Request visit [] Outpatient visit [] Follow-up visit [] Physician referral [] Code/Alert [x] Routine visit [] Staff referral [] Actively dying [] Patient sleeping [x] Family support [] [] Out of room [] Palliative care [] [] Receiving care in room [] Pre-surgical visit [] Trauma [] Long length of stay [] ICU visit [] Other: Relational/Emotional Strength [] Patient feels connected with others/family/visitors/staff [] Distress [] Loneliness/isolation [] Abandonment Spirituality of Patient [] Person of Elizabeth [] Attends Confucianism of their Elizabeth [] Believes in Prayer [] Reads Bible or Latter Day materials [] There are Spiritual issues to be addressed Cna Pct Interventions [x] Prayer [] Active listening [] Non-anxious presence [] Spiritual/emotional support [] Crisis/trauma care [] Spiritual counseling [] Bereavement support [] Provided bereavement packet [] Provided Bible/devotional materials [] Provided toy/stuffed animal, coloring book to patient or family member [] Provided Communion [] Anointing/[place] [] Salvation [x] Completed spiritual assessment [] Other: Impact on Illness or Injury [] Angry [] Fearful [] Anxious [] Often cries [] Exhaustion [] Unable to work [] Unable to attend church [] Unable to walk/stand [] Unable to read [] Unable to drive [] Unable to eat/drink [] Unable to sleep [] Unable to be with family [] Patient intubated [] Other: Summary Patient resting well. Breathing improving, and heart issues not worse. Time spent with patient 20 min
--- NOTE | 2020-03-22 11:12 | XR_ITS ---
WS: [id number] PORTABLE CHEST HISTORY: progression of bilateral pleural effusions COMPARISON: 03/20/2020 Moderate improvement in pulmonary venous congestion since the prior study. Pleural effusions have dec reased slightly in size also. Small bilateral pleural effusions. No pneumothorax. Cardiac size: Markedly enlarged cardiac silhouette. Mediastinum/Aorta: Mild atherosclerosis aorta. No osseous abnormality seen. XR/XR chest 1V portable [id number] IMPRESSION: 1. Moderate improvement in pulmonary venous congestion. 2. Improved but persistent small bilateral pleural effusions. 3. Cardiomegaly.
[2020-03-22 12:00] VITALS: BP 170/88; PULSE 108; RESP 16; TEMP 37.1; O2SAT 94
--- NOTE | 2020-03-22 13:03 | PM.PN ---
Subjective Subjective: Interval history: Patient seen and examined, seems fatigued but she is not as sleepy as she was yesterday, has been getting up to void on her own though has some exertional dyspnea. Remains on 2 L NC. Had 600 mL urine output overnight, total negative fluid balance of 3.2 L. She reports feeling better overall but is not quite at her baseline. Noted hypertension so increased dose of lisinopril. With improving clinical status we will resume beta-alexandrea for heart rate and blood pressure control. Is agreeable to continue diuresis is hoping to go home tomorrow morning. Repeat chest x-ray this morning shows improvement per my review. Medications: Reviewed: Yes Medication Review Details: Active Medications Generic Name Dose Route Start Last Admin Trade Name Freq PRN Reason Stop Dose Admin Alprazolam 0.25 mg 03/20/20 22:51 03/22/20 09:32 Xanax PO 0.25 mg BID PRN Administration Anxiety Apixaban 5 mg 03/21/20 09:00 03/22/20 09:32 Eliquis PO 5 mg BID ART Administration Aspirin 81 mg 03/21/20 09:00 03/22/20 09:32 Aspirin Ec PO 81 mg DAILY ART Administration Atorvastatin Calci um 20 mg 03/21/20 09:00 03/22/20 09:32 Lipitor PO 20 mg DAILY ART Administration Bumetanide 1 mg 03/21/20 09:00 03/22/20 09:32 Bumex PO 1 mg DAILY ART Administration Diltiazem HCl 180 mg 03/21/20 09:00 03/22/20 09:31 Cardizem Cd (24h r) PO 180 mg DAILY ART Administration Escitalopram Oxala te 20 mg 03/21/20 18:00 03/21/20 17:21 Lexapro PO 20 mg QPM ART Administration Levothyroxine Sodi um 150 mcg 03/21/20 09:00 03/22/20 09:32 Synthroid PO 150 mcg DAILY ART Administration Lisinopril 20 mg 03/22/20 09:00 03/22/20 09:32 Prinivil PO 20 mg DAILY ART Administration Metoprolol Tartrat e 50 mg 03/22/20 13:05 Lopressor PO BID ART Non-Formulary Medi cation 750 mg 03/21/20 09:00 03/22/20 11:00 Levetiracetam [K eppra Xr] PO Not Given DAILY ART tetanus and diphtheria toxoids Allergy (Verified 01/11/20 11:12) Unknown penicillin G procaine Adverse Reaction (Verified 01/11/20 11:12) unknown Vitals/I&O/Wt Last Vital Signs Temp 98.7 F 03/22/20 12:00 Pulse 108 H 03/22/20 12:00 Resp 16 03/22/20 12:00 BP 170/88 03/22/20 12:00 Pulse Ox 94 03/22/20 12:00 03/21/20 03/22/20 03/22/20 22:59 06:59 14:59 Intake Total 480 / 940 460 / 460 Output Total 1450 / 2350 600 / 2950 900 / 900 Balance -970 / -1410 -600 / -2010 -440 / -440 Weight last 48 hrs Weight 96.388 kg Weight 94.149 kg Weight 92.986 kg Physical Exam Const: COMMON NORMALS: no acute distress and patient oriented x3 GENERAL APPEARANCE: cooperative and comfortable NUTRITIONAL APPEARANCE: obese morbidly obese ORIENTATION/CONSCIOUSNESS: Yes awake HENMT: COMMON NORMALS: normocephalic, atraumatic, hearing grossly normal bilaterally and moist oral mucous membranes HEAD & SCALP: normocephalic and atraumatic Eye: COMMON NORMALS: Equal, round and reactive pupils present, EOMs intact bilaterally and conjunctivae normal CONJUNCTIVA: Yes conjunctivae normal PUPIL: Yes Equal, round and reactive pupils present Neck/C-Spine: COMMON NORMALS: full ROM GENERAL: Yes normal visual inspection and Yes trachea midline Chest: CHEST: Yes Symmetrical chest wall rise Resp: COMMON NORMALS: normal respiratory effort, No retractions, No use of accessory muscles and clear to auscultation bilaterally EFFORT & INSPECTION: Yes able to speak in complete sentences, Yes symmetric chest movement and No tachypneic AUSCULTATION: clear to auscultation bilaterally OTHER: -on 2 L NC Cardio: COMMON NORMALS: regular rate, regular rhythm, S1 normal heart sound present, S2 normal heart sound present and No murmurs present (Cardio) RATE: regular rate RHYTHM: regular rhythm HEART SOUNDS: S1 normal heart sound present and S2 normal heart sound present GI: COMMON NORMALS: Normal to inspection, nondistended, normoactive bowel sounds present, Soft to palpation and non-tender INSPECTION: Yes central obesity PALPATION: Yes Soft to palpation Extremity: COMMON NORMALS: normal to inspection, full ROM, no clubbing, cyanosis or edema and no pedal edema Neuro: COMMON NORMALS: patient oriented x3, moves all extremities, no focal motor deficits and no sensory deficits noted Psych: COMMON NORMALS: mental status grossly normal, Normal thought process present, cooperative, normal affect and speech normal SPEECH: Yes normal speech THOUGHT PROCESS: Normal thought process present Skin: COMMON NORMALS: no rashes or lesions noted, no jaundice, no petechiae and no mottling GENERAL SKIN EXAM: no rashes or lesions noted Data : 03/21/20 01:20 03/21/20 01:20 A&P Assessment and plan (1) Acute exacerbation of CHF (congestive heart failure): -Noted acutely decompensated chronic diastolic CHF as evidenced by on exertion, orthopnea, PND, BNP elevation (8489), evidence of fluid overload on imaging -Currently on diuresis with Bumex, so far has had negative fluid balance of 3.2 L -Continue to monitor Is & Os, daily weights -Echo (05/2019): EF=60%, G1DD, no RWMA, trace AR, trace TR -Noted evidence of reported large bilateral pleural effusions on imaging -Monitor respiratory status -Currently hemodynamically stable, continue to monitor vital signs -Has not been on diuretics at home -Repeat chest x-ray today shows moderate improvement in pulmonary venous congestion, small bilateral pleural effusions Status: Acute Qualifiers: Heart failure type: unspecified Qualified Code(s): I50.9 - Heart failure, unspecified (2) Atrial fibrillation: -has known hx of atrial fibrillation -presented in atrial flutter with RVR; rate controlled following dose of Cardizem -had previously been taken off digoxin and metoprolol due to bradycardia -telemetry monitoring -on AC with Eliquis -currently rate controlled; continue to monitor vital signs -continue Cardizem; resume beta-alexandrea -f/u with Dr. Guzman/Dr. Caballero Status: Chronic Qualifiers: Atrial fibrillation type: paroxysmal Qualified Code(s): I48.0 - Paroxysmal atrial fibrillation (3) Bilateral pleural effusion: -as noted above Status: Acute (4) Generalized epilepsy: [facility] Status: Chronic (5) Hypertension: -continue to monitor vital signs -continue ACEi, on diuretics Status: Chronic Qualifiers: Hypertension type: essential hypertension Qualified Code(s): I10 - Essential (primary) hypertension (6) Hypothyroidism: -on levothyroxine Status: Chronic Qualifiers: Hypothyroidism type: unspecified Qualified Code(s): E03.9 - Hypothyroidism, unspecified (7) Stroke due to embolism of left middle cerebral artery: -prior hx of L MCA CVA in 05/2019; did not receive tPA -has been f/u with Dr. Randall -attributed to atrial fibrillation -on ASA, statin, AC with Eliquis -has residual cognitive impairment Status: Chronic (8) Non-insulin dependent diabetes mellitus: -A1c (12/2019): 8.3 -Accucheks, ISS, hypoglycemia precautions -consistent carb diet as tolerated -takes metformin at home, on hold Status: Chronic Additional A&P Information -Morbid obesity: BMI-36 kg/m2 -Hyperlipidemia; on statin -SWETHA; severe; on CPAP; oxygen-dependent 2-3 L NC baseline requirement -GI ppx with PPI -DVT ppx not needed as on Eliquis -Dispo: home -Code status: FULL code Attestations Medical Necessity Statement*: Patient requires hospitalization for continued diuresis secondary to acute CHF exacerbation. Coding Level of Care Code Acute Special Order Jeweler for Morgan Sanchez Diagnoses Acute exacerbation of CHF (congestive heart failure) I50.9 Heart failure type: unspecified Atrial fibrillation I48.0 Atrial fibrillation type: paroxysmal Bilateral pleural effusion J90 Generalized epilepsy G40.309 Hypertension I10 Hypertension type: essential hypertension Hypothyroidism E03.9 Hypothyroidism type: unspecified Stroke due to embolism of left middle cerebral artery I63.412 Non-insulin dependent diabetes mellitus
[2020-03-22] MEDS: metoprolol tartrate 50 mg Tablet PO ×2 (14:06→17:36)
[2020-03-22 15:56] VITALS: BP 152/87; PULSE 65; RESP 15; TEMP 36.4; O2SAT 95
[2020-03-22] MEDS: escitalopram 10 mg Tablet 20 MG PO (17:36)
[2020-03-22 20:00] VITALS: BP 160/79; PULSE 62; RESP 18; TEMP 36.6; O2SAT 91
--- NOTE | 2020-03-22 20:20 | PC.NURSE ---
Baseline Neuro Assessment Pt is A&Ox4, able to tell me her birthday, where she is, why she is in the hospital, what year it is, who the president is, can move all extremities, followed directions with no complications, speech is clear and appropriate, pupils are equal and reactive.
--- NOTE | 2020-03-22 21:34 | PC.NURSE ---
Pt up to chair reading her book, no needs verbalized, will continue to monitor.
--- NOTE | 2020-03-22 22:24 | PC.NURSE ---
Charge nurse was looking at Pt's chart and noticed that Dr. Mcnally put in her note to start an intermediate sliding scale for ACHS. I sent message to Dr. Amor and he approved for me to put in the order that Dr. Whitfield put in her note.
[2020-03-22 22:26] LABS: Glucose Point of Care 196 mg/dL (70-110)
--- NOTE | 2020-03-22 22:48 | PC.NURSE ---
Pt laying in bed reading her book. Reports 0/10 pain. Requests xanax when I bring her insulin in. No other needs voiced at this time. Will continue to monitor.
[2020-03-23] VITALS: BP 161/85; PULSE 62; RESP 16; TEMP 36.6; O2SAT 91
--- NOTE | 2020-03-23 00:03 | PC.NURSE ---
Pt resting in bed reading her book. Rated pain 0/10, no other needs voiced at this time.
--- NOTE | 2020-03-23 01:14 | PC.NURSE ---
Pt is asleep in bed, 0/10 pain per FLACC, no other needs voiced at this time, will continue to monitor.
[2020-03-23 04:00] VITALS: BP 158/83; PULSE 66; RESP 18; TEMP 36.6; O2SAT 91
--- NOTE | 2020-03-23 05:33 | PC.NURSE ---
Started intermediate insulin sliding scale per Dr. Amor, administered 6 units of novolog. Pt requested a xanax to help relax her so she could sleep. After administering the xanax Pt was able to sleep all night. She has a 0/10 pain report. Has urinated two times throughout the night. The first time she urinated she had over 400mLs out, she forgot to let me know the second time and she dumped it. No other needs or episodes happened throughout the night. Will continue to monitor.
[2020-03-23 06:00] VITALS: BMI 36.2
[2020-03-23 06:34] LABS: Glucose Point of Care 150 mg/dL (70-110)
[2020-03-23 08:00] VITALS: BP 164/88; PULSE 84; RESP 16; TEMP 36.4; O2SAT 93
--- NOTE | 2020-03-23 08:47 | PM.DCS ---
Discharge Providers Date of Admission: 03/22/20 13:13 Date of Discharge: March 23, 2020 Attending Provider at Admission: Oanh Amor MD Attending Provider at Discharge: Jennifer Whitfield MD Primary Care Provider: Milton Rodriguez DO Diagnoses at Discharge Discharge Diagnosis (1) Acute exacerbation of CHF (congestive heart failure): Status: Acute Problem details: -Noted acutely decompensated chronic diastolic CHF as evidenced by on exertion, orthopnea, PND, BNP elevation (8489), evidence of fluid overload on imaging -Currently on diuresis with Bumex, so far has had negative fluid balance of 3.2 L -Continue to monitor Is & Os, daily weights -Echo (05/2019): EF=60%, G1DD, no RWMA, trace AR, trace TR -Noted evidence of reported large bilateral pleural effusions on initial imaging -stable respiratory status -Currently hemodynamically stable, continue to monitor vital signs -Has not been on diuretics at home but will need this on d/c -Repeat chest x-ray shows moderate improvement in pulmonary venous congestion, small bilateral pleural effusions Qualifiers: Heart failure type: unspecified Qualified Code(s): I50.9 - Heart failure, unspecified (2) Atrial fibrillation: Status: Chronic Problem details: -has known hx of atrial fibrillation -presented in atrial flutter with RVR; rate controlled following dose of Cardizem -had previously been taken off digoxin and metoprolol due to bradycardia -telemetry monitoring -on AC with Eliquis -currently rate controlled; continue to monitor vital signs -continue Cardizem; resume beta-alexandrea -f/u with Dr. Guzman/Dr. Caballero Qualifiers: Atrial fibrillation type: paroxysmal Qualified Code(s): I48.0 - Paroxysmal atrial fibrillation (3) Bilateral pleural effusion: Status: Acute Problem details: -improved with diuresis (4) Generalized epilepsy: Status: Chronic Problem details: -f/u with Dr. Randall -on Keppra -seizure precautions (5) Hypertension: Status: Chronic Problem details: -continue to monitor vital signs -continue ACEi, on diuretics -BP better controlled with increased dose of lisinopril Qualifiers: Hypertension type: essential hypertension Qualified Code(s): I10 - Essential (primary) hypertension (6) Hypothyroidism: Status: Chronic Problem details: -on levothyroxine Qualifiers: Hypothyroidism type: unspecified Qualified Code(s): E03.9 - Hypothyroidism, unspecified (7) Stroke due to embolism of left middle cerebral artery: Status: Chronic Problem details: -prior hx of L MCA CVA in 05/2019; did not receive tPA -has been f/u with Dr. Randall -attributed to atrial fibrillation -on ASA, statin, AC with Eliquis -has residual cognitive impairment (8) Non-insulin dependent diabetes mellitus: Status: Chronic Problem details: -A1c (12/2019): 8.3 -Accucheks, ISS, hypoglycemia precautions -consistent carb diet as tolerated -takes metformin at home, can resume on d/c Other Information Additional DC diagnoses/information: -Morbid obesity: BMI-36 kg/m2 -Hyperlipidemia; on statin -SWETHA; severe; on CPAP; oxygen-dependent 2-3 L NC baseline requirement Reason for Visit Reason for Visit: Reason For Visit: sob Hospital Course Hospital Course: Patient was admitted to the medical surgical floor and placed on telemetry monitoring. She was started on diuresis secondary to acute CHF exacerbation and noted bilateral pleural effusions on imaging. She is oxygen dependent at baseline and has been maintained on her baseline oxygen requirement of 2 L nasal cannula. She has diuresed a total of about 4 L with noted improvement both symptomatically and objectively as evidenced on repeat chest x-ray. She had not been on diuretics previously so we will continue this on discharge. She seems to respond well to Bumex so we will continue this. She had had an echo done less than a year ago showing an ejection fraction of 60% with grade 1 diastolic dysfunction, no repeat was done during her hospital stay as not needed. She will require continued follow-up with cardiology as well as a primary care provider. The rest of her home medications were continued as appropriate. She required some adjustments in her oral antihypertensives secondary to noted increase in blood pressure. She is counseled on need to seek medical attention immediately should any of her symptoms worsen or recur. She did well overnight and feels comfortable going home today. Discharge Summary: -Patient to follow-up with her primary care physician within 1 week -Patient to continue to follow-up with cardiology Physical Exam Const: COMMON NORMALS: no acute distress and patient oriented x3 GENERAL APPEARANCE: cooperative and comfortable NUTRITIONAL APPEARANCE: obese morbidly obese ORIENTATION/CONSCIOUSNESS: Yes awake HENMT: COMMON NORMALS: normocephalic, atraumatic, hearing grossly normal bilaterally and moist oral mucous membranes HEAD & SCALP: normocephalic and atraumatic Eye: COMMON NORMALS: Equal, round and reactive pupils present, EOMs intact bilaterally and conjunctivae normal CONJUNCTIVA: Yes conjunctivae normal PUPIL: Yes Equal, round and reactive pupils present Neck/C-Spine: COMMON NORMALS: full ROM GENERAL: Yes normal visual inspection and Yes trachea midline Chest: CHEST: Yes Symmetrical chest wall rise Resp: COMMON NORMALS: normal respiratory effort, No retractions, No use of accessory muscles and clear to auscultation bilaterally EFFORT & INSPECTION: Yes able to speak in complete sentences, Yes symmetric chest movement and No tachypneic AUSCULTATION: clear to auscultation bilaterally OTHER: -on 2 L NC Cardio: COMMON NORMALS: regular rate, regular rhythm, S1 normal heart sound present, S2 normal heart sound present and No murmurs present (Cardio) RATE: regular rate RHYTHM: regular rhythm HEART SOUNDS: S1 normal heart sound present and S2 normal heart sound present GI: COMMON NORMALS: Normal to inspection, nondistended, normoactive bowel sounds present, Soft to palpation and non-tender INSPECTION: Yes central obesity PALPATION: Yes Soft to palpation Extremity: COMMON NORMALS: normal to inspection, full ROM, no clubbing, cyanosis or edema and no pedal edema Neuro: COMMON NORMALS: patient oriented x3, moves all extremities, no focal motor deficits and no sensory deficits noted Psych: COMMON NORMALS: mental status grossly normal, Normal thought process present, cooperative, normal affect and speech normal SPEECH: Yes normal speech THOUGHT PROCESS: Normal thought process present Skin: COMMON NORMALS: no rashes or lesions noted, no jaundice, no petechiae and no mottling GENERAL SKIN EXAM: no rashes or lesions noted Discharge Data Data Completed and Pending: Completed Studies During Hospitalization Category Date Time Status CT angio chest PE protcl [id number] Stat Cat Scan 03/20/20 20:52 Completed XR chest 1V merrill ble [id number] Routine Exams 03/22/20 11:12 Completed XR chest 1V merrill ble [id number] Urgent Exams 03/20/20 19:02 Completed Labs from last 24 hours 03/23/20 03/22/20 06:28 22:22 POC Glucose 150 196 Vitals: Last Vital Signs Temp 97.6 F 03/23/20 08:00 Pulse 84 03/23/20 08:00 Resp 16 03/23/20 08:00 BP 164/88 03/23/20 08:00 Pulse Ox 93 03/23/20 08:00 Discharge Plan Discharge Patient Disposition: Home, Self-Care Condition: Stable Prescriptions: New bumetanide 1 mg Tablet 1 mg PO DAILY 30 Days Qty: 30 RF: 0 DILT-XR 180 mg Capsule,Ext.Rel 24h Degradable 180 mg PO DAILY 30 Days Qty: 30 RF: 0 Miralax 17 gram Powder In Packet 17 g PO DAILY 30 Days Qty: 30 RF: 0 lisinopril 20 mg Tablet 20 mg PO BID 30 Days Qty: 60 RF: 0 Continued Eliquis 5 mg tablet 5 mg PO BID RF: 0 omeprazole 20 mg capsule,delayed release(DR/EC) 20 mg PO DAILY RF: 0 aspirin [Adult Low Dose Aspirin] 81 mg tablet,delayed release (DR/EC) 81 mg PO DAILY RF: 0 biotin 5 mg capsule 5 mg PO DAILY RF: 0 albuterol sulfate [Ventolin HFA] 90 mcg/actuation HFA aerosol inhaler 2 puff INHALATION Q4H PRN (Reason: Shortness Of Breath) RF: 0 escitalopram oxalate [Lexapro] 10 mg tablet 20 mg PO QPM RF: 0 alprazolam 0.25 mg tablet 0.25 mg PO BID PRN (Reason: Anxiety) RF: 0 metformin 1,000 mg tablet extended release 24hr 1,000 mg PO BID RF: 0 glimepiride 4 mg tablet 4 mg PO DAILY RF: 0 levetiracetam [Keppra XR] 750 mg tablet extended release 24 hr 1,500 mg PO DAILY Qty: 60 RF: 6 atorvastatin 20 mg Tablet 20 mg PO DAILY RF: 0 levothyroxine 25 mcg tablet 150 mcg PO DAILY RF: 0 metoprolol tartrate 50 mg Tablet 50 mg PO Q12H 30 Days Qty: 60 RF: 0 Discontinued diltiazem HCl [Cardizem CD] 120 mg capsule,extended release 24hr 120 mg PO BID RF: 0 lisinopril 10 mg Tablet 10 mg PO DAILY Qty: 30 RF: 0 No Action (DME) BIPAP MACHINE Qty: 1 RF: 0 (DME) BIPAP MASK Qty: 1 RF: 2 (DME) BIPAP SUPPLIES Qty: 1 RF: 2 Discharge Orders: Discharge Order (Routine); Ordered 03/23/20 Ordered By: Jennifer Whitfield Referrals: [facility] [Outside] Milton Rodriguez, [Primary Care Provider] - 4-7 days (Post hospital discharge follow up. Treated for acute CHF exacerbation, now on bumetanide) Discharge Diet: Cardiac and Diabetic Discharge Activity: Increase activity as tolerated Activity Restrictions/Additional Instructions: -Please continue to use your oxygen as instructed Discharge Attestations Time Spent in Discharge Care*: greater than 30 min Specific Discharge Activities: Specific discharge activities: educating patient, discussing with case worker/social workers/dc planners, documenting/other paperwork and evaluating patient/reviewing data Status at Discharge: Cognitive status at discharge: cognitively intact, Behavioral status at discharge: cooperative, Functional status at discharge: independent ambulation Overall status at discharge: patient is progressing back to baseline Quality Metrics Clinical Quality Measures During this hospital stay, did patient experience: None Coding Level of Care Code 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
[2020-03-23] MEDS: polyethylene glycol 3350 Pkt 17 gm PO (08:53)
[2020-03-23] MEDS: dilTIAZem ER (24HR) 180 mg Capsule PO (08:54)
[2020-03-23] MEDS: metoprolol tartrate 50 mg Tablet PO (08:54)
[2020-03-23] MEDS: bumetanide 1 mg Tablet PO (08:54)
[2020-03-23] MEDS: lisinopril 20 mg Tablet PO (08:54)
[2020-03-23] MEDS: aspirin 81 mg EC Tablet PO (08:54)
[2020-03-23] MEDS: apixaban 5 mg Tablet PO (08:54)
[2020-03-23] MEDS: levothyroxine 25 mcg Tablet 150 MCG PO (08:55)
[2020-03-23] MEDS: atorvastatin 40 mg Tablet 20 MG PO (08:55)
[2020-03-23] MEDS: LEVETIRACETAM 750 MG 750 EACH PO (08:56)
--- NOTE | 2020-03-23 10:55 | PC.NURSE ---
IV DC'd , cath intact bleeding controlled with 2x2 and coban, DC instructions given, W/C to main entrance to personal vehicle with no difficulties.
[2020-03-23 10:59] VITALS: BP 164/88; PULSE 84; RESP 16; TEMP 36.4; O2SAT 93
--- NOTE | 2020-03-23 11:00 | PC.CHAP ---
Pastoral Care Encounter/Spiritual Assessment Type of Contact [] Declined lead sewage plant operator visit [] Patient/Family/Request visit [] Outpatient visit [] Follow-up visit [] Physician referral [] Code/Alert [X] Routine visit [] Staff referral [] Actively dying [] Patient sleeping [] Family support [] [] Out of room [] Palliative care [] [] Receiving care in room [] Pre-surgical visit [] Trauma [] Long length of stay [] ICU visit [] Other: Relational/Emotional Strength [] Patient feels connected with others/family/visitors/staff [] Distress [] Loneliness/isolation [] Abandonment Spirituality of Patient [] Person of Elizabeth [] Attends Mormonism of their Elizabeth [] Believes in Prayer [] Reads Bible or Mandaeism materials [] There are Spiritual issues to be addressed Logging Crew Supervisor Interventions [] Prayer [] Active listening [] Non-anxious presence [] Spiritual/emotional support [] Crisis/trauma care [] Spiritual counseling [] Bereavement support [] Provided bereavement packet [] Provided Bible/devotional materials [] Provided toy/stuffed animal, coloring book to patient or family member [] Provided Communion [] Anointing/[place] [] Salvation [] Completed spiritual assessment [] Other: Impact on Illness or Injury [] Angry [] Fearful [] Anxious [] Often cries [] Exhaustion [] Unable to work [] Unable to attend latter day [] Unable to walk/stand [] Unable to read [] Unable to drive [] Unable to eat/drink [] Unable to sleep [] Unable to be with family [] Patient intubated [] Other: Summary PT was in process of being discharged. I obtained permission to offer silent prayer, which she appreciated. She was READY TO GO HOME and nurse had come into the room to complete the discharge process. Time spent with patient
== END 2020-03-23 10:55 | disposition home or self-care (01) | DRG 292 ==
LOC: ER 18:41 → MEDSURG 22:43
PROVIDERS: Family Medicine; Admitting Provider Internal Medicine; PCP Electrodiagnostic Medicine; Visit Provider Family Medicine
DX: I11.0 Hypertensive heart disease with heart failure (principal); I48.92 Unspecified atrial flutter; I50.33 Acute on chronic diastolic (congestive) heart failure; E03.9 Hypothyroidism, unspecified; I48.0 Paroxysmal atrial fibrillation; Z79.01 Long term (current) use of anticoagulants; G40.909 Epilepsy, unspecified, not intractable, without status epilepticus; I69.919 Unspecified symptoms and signs involving cognitive functions following unspecified cerebrovascular disease; Z99.81 Dependence on supplemental oxygen; F32.9 Major depressive disorder, single episode, unspecified; E11.9 Type 2 diabetes mellitus without complications; G47.33 Obstructive sleep apnea (adult) (pediatric); Z87.891 Personal history of nicotine dependence; E66.01 Morbid (severe) obesity due to excess calories; Z68.36 Body mass index [BMI] 36.0-36.9, adult; Z79.82 Long term (current) use of aspirin; Z79.51 Long term (current) use of inhaled steroids; Z79.84 Long term (current) use of oral hypoglycemic drugs
CPT/HCPCS: 12345; 36415; 36416; 71045; 71275; 80048; 80053; 82962; 83605; 83880; 84484; 85025; 85378; 87804; 93005; 94664; 96372; 96375; 97161; 99282; G0378; J1815; J1940; J3490; Q9967

== ENCOUNTER → 2020-04-15 11:14 | Outpatient (BNVA) | payer MEDICARE, SELFPAY | PROVIDERS: PCP Electrodiagnostic Medicine; Visit Provider Specialist | DX: G40.309 Generalized idiopathic epilepsy and epileptic syndromes, not intractable, without status epilepticus (principal); I69.320 Aphasia following cerebral infarction; G31.84 Mild cognitive impairment of uncertain or unknown etiology; R29.90 Unspecified symptoms and signs involving the nervous system | CPT/HCPCS: 99214 ==

== ENCOUNTER → 2020-05-27 10:57 | Outpatient (BNVA) | payer MEDICARE, SELFPAY | PROVIDERS: PCP Nurse Practitioner Family; Visit Provider Internal Medicine | DX: Z11.59 Encounter for screening for other viral diseases (principal) | CPT/HCPCS: 87635 ==

== ENCOUNTER 2020-05-29 09:26 | Observation (INO) | payer MEDICARE, OTHER, SELFPAY ==
[2020-05-27 13:39] VITALS: BMI 33.1
--- NOTE | 2020-05-27 13:56 | P.ANESASSM_ITS ---
Pre-Anesthetic Assessment Pre-Anesthetic Assessment: Height/Weight: Height 1.65 m Weight 90.265 kg Preop Diagnosis: pacemaker implantation Proposed Procedure: Operation Date: 05/29/20 08:00 Proposed Procedures p Pacemaker Insertion(Not Applicable) - Jared Manriquez MD Familial anesthetic complications: None Social: Social History: No alcohol and No tobacco Exam: Pre-Anes Outpt Exam: alert, oriented x 3, clear to auscultation bilaterally and regular rate & rhythm Airway: Cervical ROM: WNL MP: 2 Dentition: Partials and Other (poor dentition) Pulmonary: Pulmonary: COPD (O2 prn, 2 L NC, usually used when she gets too hot) and Sleep apnea (cpap) CV/HEM: CV/HEM: Arrythmia, CHF and HTN GI: GI: GERD Metabolic: Metabolic: DM, Hyperlipidemia and Thyroid Musc/skel: Musc/skel: None reported Neuropsych: Neuropsych: CVA (May 2019) and Seizure (seizures following stroke) Anesthetic Plan: ASA status: 4 Anesthesia: MAC Risk of > 500 ml blood loss (7ml/kg in children): No PFSH Anesthesia PFSH: Medical History Atrial dysrhythmia Atrial fibrillation -has known hx of atrial fibrillation -presented in atrial flutter with RVR; rate controlled following dose of Cardizem -had previously been taken off digoxin and metoprolol due to bradycardia -telemetry monitoring -on AC with Eliquis -currently rate controlled; continue to monitor vital signs -continue Cardizem; resume beta-alexandrea -f/u with Dr. Guzman/Dr. Caballero Atrial flutter 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, managed as type 2 Diastolic heart failure Drug-induced bradycardia Digoxin was discontinued along beta-alexandrea Generalized epilepsy Heart failure Hypertension -continue to monitor vital signs -continue ACEi, on diuretics -BP better controlled with increased dose of lisinopril Hypothyroidism -on levothyroxine Non-insulin dependent diabetes mellitus -A1c (12/2019): 8.3 -Accucheks, ISS, hypoglycemia precautions -consistent carb diet as tolerated -takes metformin at home, can resume on d/c Paroxysmal A-fib Seizure Severe obstructive sleep apnea Sleep apnea in adult Stroke due to embolism of left middle cerebral artery -prior hx of L MCA CVA in 05/2019; did not receive tPA -has been f/u with Dr. Randall -attributed to atrial fibrillation -on ASA, statin, AC with Eliquis -has residual cognitive impairment Type 2 diabetes mellitus Surgical History No pertinent past surgical history Family History Sister Diabetes Father Heart disease Mother Heart disease Social History Smoking and tobacco status: former smoker Alcohol intake: never History of recent travel: Yes ([facility]) Data Anesthesia CBC & Chem 7: 05/27/20 13:41 05/27/20 13:41 Cardiac Studies: No Data to Display
[2020-05-27 13:58] LABS: Add Urine Microscopic? NO
[2020-05-27 14:02] LABS: INR 0.98 (0.8-1.2)
[2020-05-27 14:12] LABS: Basophils % 0.5 %; Eosinophils # 0.1 10^3/uL (0.0-0.8); Eosinophils % 0.8 %; Hematocrit 48.3 % (37.0-47.0); Hemoglobin 14.9 g/dL (11.5-15.3); Lymphocytes # 2.1 10^3/uL (0.8-4.8); Lymphocytes % 26.7 %; Mean Corpuscular HGB Conc 30.8 g/dL (30.0-36.0); Mean Corpuscular Hemoglobin 28.4 pg (28.0-34.0); Mean Platelet Volume 11.5 fL (7.4-10.4); Monocytes # 0.6 10^3/uL (0.2-0.9); Monocytes % 8.2 %; Neutrophils # 4.87 10^3/uL (1.8-7.7); Neutrophils % 63.5 %; Nucleated Red Blood Cells % 0 %; Platelet Count 245 10^3/cmm (130-400); Red Blood Count 5.25 10^6/uL (4.1-5.3); Red Cell Distribution Width 15.3 % (12.1-15.1); White Blood Count 7.7 10^3/uL (4.0-10.0)
[2020-05-27 14:17] LABS: Urine Appearance Clear (CLEAR); Urine Color Straw (Yellow); pH Urine 5 (5-7)
[2020-05-27 14:18] LABS: Bilirubin Urine Neg (NEGATIVE); Blood Urine Neg (Negative); Glucose Urine UA 4+ (Normal); Ketones Urine Negative (Negative); Leukocyte Esterase Urine Negative (Negative); Nitrate Urine Negative (Negative); Protein Urine Neg (Negative); Urobilinogen Urine Norm (Negative)
[2020-05-27 14:22] LABS: Anion Gap 18.8 (5-19); Blood Urea Nitrogen 27 mg/dL (8-23); Calcium 9.5 mg/dL (8.5-10.5); Carbon Dioxide 28 mmol/L (22-29); Chloride 99 mmol/L (98-107); Glucose 238 mg/dL (65-115); Osmolality Calculated 299 mOsm/kg (285-295); Potassium 3.8 mmol/L (3.5-5.1); Sodium 142 mmol/L (136-145)
[2020-05-29] VITALS (21 sets, daily range): BP systolic 110–152; BP diastolic 68–98; PULSE 64–90; RESP 9–22; TEMP 36.1–37; O2SAT 89–98
--- NOTE | 2020-05-29 | SCC_ITS ---
Procedure Done: Dual-chamber pacemaker implantation 94.2 seconds of fluoroscopic guidance, for a cumulative dose of 25.28 mGy, was provided to Dr. Manriquez by the radiology department. C-arm images of the chest were saved for the patient's permanent record. [facility]
--- NOTE | 2020-05-29 06:05 | XRR_ITS ---
PROCEDURE INFORMATION: Exam: XR Chest, 1 View Exam date and time: 05/29/2020 6:19 AM Age: 74 years old Clinical indication: Pre-operative exam; Cardiovascular screening and respiratory screening exam; Additional info: Preop for pacemaker implantation TECHNIQUE: Imaging protocol: XR of the chest Views: 1 view. COMPARISON: CR XR chest 1V portable [id number] 03/22/2020 11:54 AM FINDINGS: Lungs: Lungs are well aerated without a focal area of consolidation. Pleural space: Unremarkable. No pleural effusion. No pneumothorax. Heart/Mediastinum: Cardiac silhouette is enlarged. Bones/joints: Unremarkable. XR/XR chest 1V portable [id number] IMPRESSION: Lungs are well aerated without a focal area of consolidation.
--- NOTE | 2020-05-29 06:05 | SC_ITS ---
WS: [id number] C-ARM RADIOGRAPHS CHEST; 2 IMAGES HISTORY: pacemaker implantation COMPARISON: None available. Intraoperative imaging during cardiac pacer placement. SC/C-arm FL for Pacemaker IMPRESSION: Intraoperative imaging during cardiac pacer placement.
--- NOTE | 2020-05-29 06:07 | W.PM.OPSUD ---
Surgery/Procedure H&P Update DATE OF PROCEDURE: May 29, 2020 DATE H&P PERFORMED: 05/23/20 H&P UPDATE INFORMATION: I have reviewed H&P completed within last 30 days, I have examined patient prior to procedure and No changes to prior documentation PREOP DIAGNOSIS: pacemaker implantation PRIMARY INDICATION FOR PROCEDURE: Tachybradycardia syndrome with paroxysmal atrial fibrillation PLANNED PROCEDURE: Operation Date: 05/29/20 07:00 Proposed Procedures p Pacemaker Insertion(Not Applicable) - Jared Manriquez MD
[2020-05-29 06:37] LABS: Glucose Point of Care 196 mg/dL (70-110)
[2020-05-29] MEDS: sodium chloride 0.9% 1,000 ML 30 ML IV (06:43)
[2020-05-29] MEDS: vancomycin 1,000 MG in sodium chloride 0.9% 250 ML 250 MG IV (06:44)
[2020-05-29] MEDS: vancomycin 1,000 MG SDV 1000 MG IRRIGATION (07:28)
[2020-05-29] MEDS: lidocaine 1% INJ 20 mL INJECTION (07:29)
[2020-05-29] MEDS: lidocaine 1% INJ 20 mL IM (07:58)
--- NOTE | 2020-05-29 09:09 | XRR_ITS ---
PROCEDURE INFORMATION: Exam: XR Chest, 1 View Exam date and time: 05/29/2020 9:14 AM Age: 74 years old Clinical indication: Device placement; Cardiac pacemaker lead placement or adjustment; Prior surgery; Surgery date: Post-operative (0-2 days); Additional info: Post op TECHNIQUE: Imaging protocol: XR of the chest Views: 1 view. COMPARISON: CR XR chest 1V portable [id number] 05/29/2020 6:11 AM FINDINGS: Lungs: Interstitial prominence of a rather linear nature in the left and right suprahilar regions. Unclear etiology. Pleural space: Unremarkable. No pleural effusion. No pneumothorax. Heart/Mediastinum: Cardiac silhouette is enlarged. Cardiomegaly. Vasculature: Pacemaker is present via a left subclavian approach. Bones/joints: Unremarkable. XR/XR chest 1V portable [id number] IMPRESSION: Interstitial prominence of a rather linear nature in the left and right suprahilar regions. Unclear etiology. Possibly atelectasis. Recommend short-term follow-up. If persistent, CT.
--- NOTE | 2020-05-29 09:17 | PM.OP ---
Operative Report Date of procedure: May 29, 2020 Pre-op Diagnosis: pacemaker implantation for medical treatment of tachybradycardia syndrome Post-op diagnosis: same Post-op Findings: Same Procedure Done: Dual-chamber pacemaker implantation Implants: Atrial and ventricular leads and pacing generator Pathology: none sent Surgeon: Jared Manriquez Anesthesia: MAC and Local (12 cc 1% lidocaine) Estimated blood loss (mL): 15 Complications: None: Post procedure chest x-ray reveals appropriate lead positioning and no evidence for pneumothorax Condition: stable Disposition: PACU Brief History: Pleasant 74-year-old female currently being cared for by Dr. Guzman for tachybradycardia syndrome. Due to her sensitivity to beta-blockade, it is been difficult to medically manage along with her episodes of paroxysmal atrial fibrillation. Dual-chamber pacemaker implantation is been recommended to allow for consistent medical management. Rationale was carefully discussed with Ms. Goode. Details risk procedure were also carefully reviewed. Proper consents have been reviewed and signed. Procedure: Procedure: Ms. Goode was taken to the OR suite and placed in the supine position over a shoulder roll. She received conscious sedation with continuous anesthesia monitoring by. Her entire chest was sterilely prepped and draped. 1% lidocaine was infiltrated in the left subclavicular region. Initial attempts to engage the left subclavian vein were unsuccessful. Her chest wall is rather thick. We subsequently utilized hand-held ultrasound to allow for appropriate visualization. While in Trendelenburg position, utilizing modified seldinger technique, 2 guidewires were placed in the left subclavian vein. This was confirmed in position by fluoroscopy. Next, after infiltration with lidocaine, a subcutaneous pocket was created beginning from the exit point of the guidewire and extending laterally and inferiorly. Cautery was utilized to create the pocket just above the pectoralis musculature. Hemostasis was confirmed. An antibiotic-soaked sponge was placed in the wound. A dilator and tear-away sheath was placed over the first guidewire and advanced under fluoroscopy. Guidewire and dilator were removed. Next using a combination of curved and straight stylettes, the right ventricular lead was placed in position by fluoroscopy. The distal screw was extended. Interrogation was then performed confirming appropriate parameters. The tear-away sheath was then removed and the ventricular lead was sewn to the floor of the subcutaneous pocket. In a similar fashion dilator and tear-away sheath was placed over the 2nd guide wire and advanced under fluoroscopy. Guidewire and dilator were removed. Straight and curved stylettes were used to position the right atrial lead with fluoroscopy. Distal screw was extended. Interrogation was then performed. Tear-away sheath was then removed. Atrial lead was secured to the floor of the subcutaneous pocket. Pocket was irrigated with antibiotic solution and hemostasis again confirmed. Pacing generator was brought into the field, and after confirmation of hemostasis in the subcutaneous pocket, the leads were connected to the generator with appropriate capture. The entire system was interrogated by fluoroscopy. Leads and generator were secured in the pocket. Sponge and needle count was correct. The wound was then closed in 2 layers of 3-0 Vicryl suture. Skin was reapproximated in a subcuticular manner with 4-0 Monocryl suture. A pressure dressing was applied. The left arm was placed in a sling. The patient had equal breath sounds bilaterally. She was then transferred to the PACU, where chest x-ray revealed appropriate lead positioning and no evidence for pneumothorax. I did pre parole counseling aide with the family by phone at the completion of the procedure. Following are the specifics of this system: Right ventricular lead is 52 cm and model 5076. Serial number [id number] Right atrial lead is 45 cm and is model 5076. Serial number [id number]. Ventricular lead had sensing of 6.1 mV with an impedance of 760 ohms. Threshold was 0.5 V Atrial lead had sensing of 0.8 mV with an impedance of 475 ohms. Threshold was not recordable as she was in atrial fibrillation at the time of lead positioning. I did speak with Dr. Guzman by phone at the time of atrial lead positioning with her current rhythm of atrial fibrillation. [employer] generator: Model # [id number] Serial #: [id number]
--- NOTE | 2020-05-29 09:45 | PC.NURSE ---
Patient arrived from surgery to CSU. Immobilizer in place. Patient denies any pain at this time. Pressure dressing to left upper chest, CDI, asymptomatic. Left arm neurovascular assessment WNL. Patient resting in bed at this time. HOB at 30 degrees. Nurse to continue to monitor.
--- NOTE | 2020-05-29 10:23 | PC.NURSE ---
Patient unable to tell nurse what medications she took this morning. Nurse contacted [facility]. Erin, agency nurse, stated she set up for patient to take metoprolol, lisinopril, diltiazem, keppra, and levothyroxine this morning.
[2020-05-29] MEDS: pantoprazole DR 40 mg Tablet PO (10:43)
[2020-05-29] MEDS: sulfamethoxazole-trimeth DS 160-800 mg Tablet 1 TAB PO ×2 (10:43→17:20)
[2020-05-29] MEDS: bumetanide 1 mg Tablet PO (10:44)
[2020-05-29 11:40] LABS: Glucose Point of Care 147 mg/dL (70-110)
--- NOTE | 2020-05-29 14:00 | PC.NURSE ---
Patient incontinent of bowels. Patient bathed self, linen change performed. Patient states she has occasional bowel incontinence at home. Absorbent brief placed on patient. Nurse to continue to monitor.
[2020-05-29 16:17] LABS: Glucose Point of Care 146 mg/dL (70-110)
[2020-05-29] MEDS: metoprolol tartrate 50 mg Tablet PO (17:21)
[2020-05-29] MEDS: levETIRAcetam 500 mg Tablet 750 MG PO (17:21)
[2020-05-29] MEDS: HYDROcodone-acetaminophen 5-325 mg Tablet 1 TAB PO (17:25)
--- NOTE | 2020-05-29 17:57 | PC.NURSE ---
Shift Summary No acute events through shift. Patient does not have any further requests at this time. Nurse to continue to monitor.
[2020-05-29] MEDS: atorvastatin 40 mg Tablet 20 MG PO (20:23)
[2020-05-29 21:14] LABS: Glucose Point of Care 172 mg/dL (70-110)
--- NOTE | 2020-05-29 22:08 | PC.NURSE ---
REPORT RECEIVED FROM OFF GOING NURSE. PT IS RESTING IN BED. IMMOBILIZER IS IN PLACE. PRESSURE DRESSING TO LEFT UPPER CHEST IS C/D/I. PT STATES THAT THEY WERE A CPAP AT HOME. ORDER TO GET CPAP WAS APPROVED BY DR MORALES. WILL CONTINUE TO MONITOR.
[2020-05-30 04:04] VITALS: BP 127/88; PULSE 76; RESP 16; TEMP 36.7; O2SAT 93
--- NOTE | 2020-05-30 05:28 | PM.PN ---
Subjective Subjective: Interval history: Postop day #1 status post dual-chamber pacemaker implantation. No complaints overnight. Twelve-lead EKG revealed A. fib with ventricular rate under control. Pacemaker interrogation pending. Outer dressing removed. No swelling or ecchymosis. Vitals/I&O/Wt Last Vital Signs Temp 98.0 F 05/30/20 04:04 Pulse 76 05/30/20 04:04 Resp 16 05/30/20 04:04 BP 127/88 05/30/20 04:04 Pulse Ox 93 05/30/20 04:04 05/29/20 05/29/20 05/30/20 14:59 22:59 06:59 Intake Total 490 / 490 50 / 540 100 / 640 Output Total 630 / 630 600 / 1230 650 / 1880 Balance -140 / -140 -550 / -690 -550 / -1240 Physical Exam Chest: COMMONS NORMALS: normal inspection of the chest (No ecchymosis or evidence for fluid collection at pacemaker site) Resp: COMMON NORMALS: normal respiratory effort and clear to auscultation bilaterally EFFORT & INSPECTION: Yes able to speak in complete sentences AUSCULTATION: clear to auscultation bilaterally Cardio: COMMON NORMALS: S1 normal heart sound present, No murmurs present (Cardio) and No rub (Cardio) RHYTHM: abnormal rhythm irregularly irregular HEART SOUNDS: S1 normal heart sound present Data : 05/27/20 13:41 05/27/20 13:41 A&P Assessment and plan (1) Status post cardiac pacemaker procedure: POD #1 status post dual-lead pacemaker implantation. Currently in A. fib with controlled ventricular response. Plan: Will plan for discharge to home today with follow-up with pacemaker clinic in 1 week. Status: Acute Attestations Medical Necessity Statement*: POD #1 status post dual-lead pacemaker implantation Time Spent in Patient Care: 16 - 35 minutes Coding Level of Care Code Acute Gang Hemstitching Machine Operator for [place] Fwthais Diagnoses Status post cardiac pacemaker procedure Z95.0
--- NOTE | 2020-05-30 05:39 | P.DS_ITS ---
Discharge Providers Date of Admission: 05/29/20 09:26 Date of Discharge: May 30, 2020 Attending Provider at Admission: Jared Manriquez MD Attending Provider at Discharge: Jared Manriquez MD Primary Care Provider: Allan Ron Diagnoses at Discharge Discharge Diagnosis (1) Status post cardiac pacemaker procedure: Status: Acute Hospital Course Discharge Summary: Ms. Goode is a 74-year-old female referred to our service by Dr. Guzman to consider dual-lead pacemaker implantation due to tachybradycardia syndrome with intermittent paroxysmal atrial fibrillation which has been difficult to control due to substantial bradycardia with attempts at medical management. She was electively admitted yesterday underwent dual chamber pacemaker implantation. She currently is in atrial fibrillation. She is recovered on the cardiac stepdown deleon where she remained stable. Only modest pacemaker discomfort. EKG this morning reveals atrial fibrillation with controlled ventricular response. We will perform pacemaker interrogation. If acceptable, we will plan for discharge to home today with follow-up in the pacemaker clinic at [facility] a week from tomorrow. Discharge instructions were carefully reviewed with her. Currently, at the time of discharge she is in stable condition. Physical Exam Resp: COMMON NORMALS: normal respiratory effort and clear to auscultation bilaterally EFFORT & INSPECTION: Yes able to speak in complete sentences AUSCULTATION: clear to auscultation bilaterally Cardio: COMMON NORMALS: S1 normal heart sound present, No murmurs present (Cardio) and No rub (Cardio) RHYTHM: abnormal rhythm irregularly irregular HEART SOUNDS: S1 normal heart sound present Discharge Data Data Completed and Pending: Completed Studies During Hospitalization Category Date Time Status XR chest 1V merrill ble [id number] Routine Exams 05/29/20 06:05 Completed XR chest 1V merrill ble [id number] Stat Exams 05/29/20 09:09 Completed Pending at discharge Category Date Time Status XR chest 1V [id number] Routine Exams 05/30/20 06:00 Taken Labs from last 24 hours 05/29/20 05/29/20 05/29/20 20:17 16:03 10:45 POC Glucose 172 146 147 05/29/20 06:33 POC Glucose 196 Vitals: Last Vital Signs Temp 98.0 F 05/30/20 04:04 Pulse 76 05/30/20 04:04 Resp 16 05/30/20 04:04 BP 127/88 05/30/20 04:04 Pulse Ox 93 05/30/20 04:04 Discharge Plan Discharge Patient Disposition: Home Condition: Stable Prescriptions: New hydrocodone-ibuprofen 5-200 mg tablet 1 tab PO Q6H PRN (Reason: pain) 3 Days Qty: 10 RF: 0 levofloxacin [Levaquin] 500 mg tablet 500 mg PO BID 3 Days Qty: 6 RF: 0 Continued omeprazole 20 mg capsule,delayed release(DR/EC) 20 mg PO DAILY RF: 0 aspirin [Adult Low Dose Aspirin] 81 mg tablet,delayed release (DR/EC) 81 mg PO DAILY RF: 0 biotin 5 mg capsule 5 mg PO DAILY RF: 0 albuterol sulfate [Ventolin HFA] 90 mcg/actuation HFA aerosol inhaler 2 puff INHALATION Q4H PRN (Reason: Shortness Of Breath) RF: 0 metformin 1,000 mg tablet extended release 24hr 1,000 mg PO BID RF: 0 (DME) BIPAP MACHINE Qty: 1 RF: 0 (DME) BIPAP MASK Qty: 1 RF: 2 (DME) BIPAP SUPPLIES Qty: 1 RF: 2 bumetanide 1 mg tablet 1 mg PO DAILY RF: 0 diltiazem HCl 180 mg capsule,extended release 24hr 180 mg PO DAILY Qty: 90 RF: 0 lisinopril 20 mg tablet 20 mg PO DAILY Qty: 90 RF: 0 Xarelto 20 mg tablet 20 mg PO DAILY 90 Days Qty: 90 RF: 1 empagliflozin [Jardiance] 10 mg tablet See Rx Instructions .ROUTE .COMPLEX Qty: 90 RF: 0 (DME) blood-glucose meter [Easy Plus II Blood Glucose Met] Misc See Rx Instructions .ROUTE .MEDSUPPLY Qty: 1 RF: 0 (DME) Easy Plus II Test Strip See Rx Instructions .ROUTE .MEDSUPPLY Qty: 50 RF: 0 atorvastatin 20 mg tablet 20 mg PO DAILY Qty: 90 RF: 3 levetiracetam [Keppra XR] 750 mg tablet extended release 24 hr 750 mg PO DAILY Qty: 60 RF: 6 levothyroxine 25 mcg tablet 150 mcg PO DAILY RF: 0 metoprolol tartrate 50 mg Tablet 50 mg PO Q12H 30 Days Qty: 60 RF: 0 Discharge Orders: Discharge Order (Routine); Ordered 05/30/20 Ordered By: Jared Manriquez Referrals: [facility] [Provider Group] - 06/07/20 (Pacemaker clinic) Discharge Diet: Diabetic Discharge Activity: Limit activity as instructed Activity Restrictions/Additional Instructions: May remove bandage in 2 days May begin daily showers in 2 days No swimming or tub baths x 2 weeks No ointments on incision Report drainage, redness, heat, increased pain, or swelling to clinic Do not raise left arm above eye level for 1 week Discharge Attestations Time Spent in Discharge Care*: less than 30 min Specific Discharge Activities: Specific discharge activities: educating patient, discussing with supportive employment case manager/social workers/dc planners, documenting/ other paperwork and evaluating patient/reviewing data Status at Discharge: Cognitive status at discharge: cognitively intact , Behavioral status at discharge: cooperative , Overall status at discharge: patient is back to baseline Quality Metrics Clinical Quality Measures During this hospital stay, did patient experience: None Coding Level of Care Code Acute Paster Supervisor for Morgan Sanchez Diagnoses Status post cardiac pacemaker procedure Z95.0
--- NOTE | 2020-05-30 06:00 | XRR_ITS ---
PROCEDURE INFORMATION: Exam: XR Chest, 1 View Exam date and time: 05/30/2020 5:07 AM Age: 74 years old Clinical indication: Device placement; Cardiac pacemaker lead placement or adjustment; Prior surgery; Surgery date: Post-operative (0-2 days); Additional info: Post permanent pacemaker placement; Visualize lead tip TECHNIQUE: Imaging protocol: XR of the chest Views: 1 view. COMPARISON: CR XR chest 1V portable [id number] 05/29/2020 9:23 AM FINDINGS: Tubes, catheters and devices: Pacemaker overlies the left chest with intracardiac leads. Lungs: Linear scarring or atelectasis right lung apex. Pleural space: Unremarkable. No pleural effusion. No pneumothorax. Heart/Mediastinum: Cardiomegaly. Bones/joints: Unremarkable. XR/XR chest 1V [id number] IMPRESSION: 1. Cardiomegaly. 2. Right upper lung linear atelectasis or scarring.
--- NOTE | 2020-05-30 06:00 | ECG_ITS ---
[facility] Test Date: 2020-05-30 Pat Name: Gianluca Goode Department: Room: 101 Gender: Female Leasing Representative: : 1945 Requested By: Jared Manriquez Order Number: [id number] Jake MD: Micah Coleman M.D. Measurements Intervals [place] Rate: 80 P: [place]: -1 QRS: 4 QRSD: 93 T: -6 QT: 347 QTc: 401 Interpretive Statements ATRIAL FIBRILLATION with a demand V paced rhythm MODERATE VOLTAGE CRITERIA FOR LVH, CONSIDER NORMAL VARIANT [MEETS CRITERIA IN ONE OF: R(aVL), S(V1), R(V5), R(V5/V6)+S(V1)] NONSPECIFIC ST & T-WAVE ABNORMALITY ABNORMAL RHYTHM ECG Compared to ECG 03/21/2020 02:18:39 Aberrant conduction of supraventricular beat(s) no longer present Ventricular premature complex(es) no longer present Myocardial infarct finding no longer present Possible ischemia no longer present T-wave abnormality still present Electronically Signed On 05-30-2020 21:15:08 CDT by Micah Coleman M.D. [email or web address]/[id number]
--- NOTE | 2020-05-30 06:03 | PC.NURSE ---
PT APPEARED TO HAVE RESTED WELL THROUGHOUT THE NIGHT. DR SANTIAGO SAW PT IT AM. PACEMAKER WAS INTERROGATED. DR SANTIAGO READ THE REPORT. DR SANTIAGO SAID THAT HE WILL DISCHARGE PT TODAY. PT DENIES PAIN. WILL CONTINUE TO MONITOR.
[2020-05-30 06:36] LABS: Glucose Point of Care 135 mg/dL (70-110)
[2020-05-30 07:07] VITALS: BP 137/82; PULSE 89; RESP 14; TEMP 36.4; O2SAT 97
[2020-05-30 08:11] VITALS: BP 137/82; PULSE 89; RESP 14; TEMP 36.4; O2SAT 97
--- NOTE | 2020-05-30 08:16 | PC.NURSE ---
Levaquin Rx called into [facility] per patient request.
[2020-05-30] MEDS: levothyroxine 150 mcg Tablet PO (08:18)
[2020-05-30] MEDS: levETIRAcetam 500 mg Tablet 750 MG PO (08:18)
[2020-05-30] MEDS: sulfamethoxazole-trimeth DS 160-800 mg Tablet 1 TAB PO (08:18)
[2020-05-30] MEDS: bumetanide 1 mg Tablet PO (08:19)
[2020-05-30] MEDS: lisinopril 20 mg Tablet PO (08:19)
[2020-05-30] MEDS: pantoprazole DR 40 mg Tablet PO (08:19)
[2020-05-30] MEDS: metoprolol tartrate 50 mg Tablet PO (08:19)
[2020-05-30] MEDS: HYDROcodone-acetaminophen 5-325 mg Tablet 1 TAB PO (09:04)
--- NOTE | 2020-05-30 09:18 | PC.NURSE ---
Discharge instructions given per the physician's instructions. Patient verbalized understanding and did not have any further questions. Patient dressed, IV removed. Patient here to drive patient home in private vehicle. Patient does not have any further needs at this time.
== END 2020-05-30 09:20 | disposition home or self-care (01) ==
LOC: CSU 09:26
PROVIDERS: Admitting Provider Thoracic Surgery (Cardiothoracic Vascular Surgery); PCP Nurse Practitioner Family; Visit Provider Thoracic Surgery (Cardiothoracic Vascular Surgery)
PROC: (CPT 33208; principal; 2020-05-29 07:00)
DX: I49.5 Sick sinus syndrome (principal); Z79.82 Long term (current) use of aspirin; E13.9 Other specified diabetes mellitus without complications; Z79.84 Long term (current) use of oral hypoglycemic drugs; Z99.81 Dependence on supplemental oxygen; I11.0 Hypertensive heart disease with heart failure; I50.30 Unspecified diastolic (congestive) heart failure; G47.30 Sleep apnea, unspecified; E78.5 Hyperlipidemia, unspecified; Z86.73 Personal history of transient ischemic attack (TIA), and cerebral infarction without residual deficits; F32.9 Major depressive disorder, single episode, unspecified; E03.9 Hypothyroidism, unspecified; I48.0 Paroxysmal atrial fibrillation; Z79.01 Long term (current) use of anticoagulants; Z87.891 Personal history of nicotine dependence
CPT/HCPCS: 33208; 12345; 36415; 36416; 71045; 76000; 80048; 81003; 82962; 85025; 85610; 93005; 94660; 96365; 96372; 97165; C1779; C1786; G0378; J1815; J2250; J3010; J3370; J7030; J7050

== ENCOUNTER → 2020-07-02 10:16 | Outpatient (BNVA) | payer MEDICARE, SELFPAY | PROVIDERS: PCP Electrodiagnostic Medicine; Visit Provider Specialist | DX: R56.9 Unspecified convulsions (principal); Z87.891 Personal history of nicotine dependence | CPT/HCPCS: 95816 ==

== ENCOUNTER → 2020-07-08 10:25 | Outpatient (BNVA) | payer MEDICARE, OTHER, SELFPAY | PROVIDERS: PCP Electrodiagnostic Medicine; Visit Provider Registered Nurse | DX: E11.65 Type 2 diabetes mellitus with hyperglycemia (principal); F32.9 Major depressive disorder, single episode, unspecified; S16.1XXA Strain of muscle, fascia and tendon at neck level, initial encounter; X58.XXXA Exposure to other specified factors, initial encounter | CPT/HCPCS: 80053; 83036 ==

== ENCOUNTER → 2020-10-02 11:27 | Outpatient (BNVA) | payer MEDICARE, OTHER, SELFPAY | PROVIDERS: PCP Registered Nurse; Visit Provider Registered Nurse | DX: E55.9 Vitamin D deficiency, unspecified (principal); E11.65 Type 2 diabetes mellitus with hyperglycemia; E78.5 Hyperlipidemia, unspecified; R41.0 Disorientation, unspecified | CPT/HCPCS: 36416; 80053; 80061; 81000; 82306; 82962; 83036; 84443; 85025 ==

== ENCOUNTER 2020-10-10 08:05 | Outpatient (CLI) | payer MEDICARE, OTHER, SELFPAY ==
--- NOTE | 2020-10-10 08:45 | CT_ITS ---
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 DLP: 925.[address] scans at [facility] use at least one of these dose optimization techniques: automat ed exposure control; mA and/or kV adjustment per patient size (includes targeted exams where dose is matched to clinical indication); or iterative reconstruction. Findings: The ventricular system is normal without shift. No recent infarct or hemorrhage is seen. There are no abnormal intracerebral masses. There is an old left posterior parietal area of encephalomalacia and a smaller area of encephalomalacia involving the right cerebellar hemisphere.. Bony windows of the skull and skull base show no fractures or erosions. The mastoid air cells, internal grinder al auditory canals, sella turcica, intraorbital contents, and paranasal sinuses are unremarkable. CT/CT head wo con* [id number] Impression: 1. 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 2. Negative for recent hemorrhage or infarct.
== END 2020-10-10 08:06 | disposition home or self-care (01) ==
LOC: RADWPI 08:09
PROVIDERS: PCP Registered Nurse; Visit Provider Registered Nurse
DX: I69.320 Aphasia following cerebral infarction (principal); R42 Dizziness and giddiness; R51.9 Headache, unspecified
CPT/HCPCS: 70450

== ENCOUNTER 2020-10-11 12:37 | Emergency (ER) | payer MEDICARE, OTHER, SELFPAY ==
[2020-10-11 12:48] VITALS: BP 178/136; PULSE 61; RESP 18; TEMP 36.7; O2SAT 94; BMI 34.8
--- NOTE | 2020-10-11 12:54 | XR_ITS ---
WS: [id number] XR chest 1V portable [id number] REASON FOR EXAM: confusion FINDINGS: The chest is unchanged compared to previous examination of 05/30/2020. Generator over the left chest with leads to the right HM and right ventricular apex. Mild cardiac enl argement. Thoracic aorta unremarkable. Calcified granulomatous changes in both hemithoraces. No active pulmonary parenchymal or pleural disease. Moderate changes of degenerative spondylosis in the mid and lower thoracic spine. XR/XR chest 1V portable [id number] IMPRESSION: No acute chest abnormality.
--- NOTE | 2020-10-11 12:54 | ECG_ITS ---
[facility] Test Date: 2020-10-11 Pat Name: Gianluca Goode Department: Room: Gender: Female Fruit Thinner: : 1945 Requested By: Werner Palafox Order Number: [id number] Joseph MD: Micah Coleman M.D. Measurements Intervals [place] Rate: 60 P: 1 IN: 220 QRS: 1 QRSD: 97 T: 12 QT: 433 QTc: 433 Interpretive Statements ELECTRONIC ATRIAL PACEMAKER MODERATE VOLTAGE CRITERIA FOR LVH, CONSIDER NORMAL VARIANT [MEETS CRITERIA IN ONE OF: R(aVL), S(V1), R(V5), R(V5/V6)+S(V1)] NONSPECIFIC ST & T-WAVE ABNORMALITY ABNORMAL RHYTHM ECG Compared to ECG 05/30/2020 05:18:09 Atrial fibrillation no longer present Ventricular-paced complex(es) or rhythm no longer present T-wave abnormality still present Electronically Signed On 10-11-2020 18:34:38 SPRING FORMER MACHINE by Micah Coleman M.D. [email or web address] [email or web address].[employer]/store/NU/[id number] f
--- NOTE | 2020-10-11 12:54 | CT_ITS ---
WS: [id number] CT HEAD NONCONTRAST HISTORY: Symptoms of Acute Stroke TECHNIQUE: Contiguous axial imaging performed through the brain in 2.5 mm imaging. Bone and soft tiss ue windows. Sagittal and coronal reformats reviewed. All CT scans at [facility] use at le ast one of these dose optimization techniques: automated exposure control; mA and/or kV adjustment pe r patient size (includes targeted exams where dose is matched to clinical indication); or iterative r econstruction. DLP: 806.25 mGy-cm. COMPARISON: 10/10/2020 No acute intracranial hemorrhage, midline shift or mass effect. Large remote LEFT parieto-occipital infarct without hemorrhage. There is an additional smaller infarc t in the RIGHT cerebellum. No new areas of sulcal effacement. Mild chronic microvascular ischemic veronica nges are stable. Ventricles: Normal size with no hydrocephalus. No inferior displacement of cerebellar tonsils. Paranasal sinuses: As visualized are clear. Mastoid air cells: Well pneumatized. Calvarium and scalp: Marked hyperostosis frontalis interna. Moderate amount of calcified plaque through the intracranial carotid arteries. CT/CT head wo con* [id number] IMPRESSION: 1. No acute intracranial hemorrhage or edema. 2. Remote LEFT parieto-occipital infarct and RIGHT cerebellar infarcts are sta ble. Notified Werner Palafox MD at 10/11/2020 1:04 PM.
[2020-10-11 13:05] LABS: Glucose Point of Care 144 mg/dL (70-110)
--- NOTE | 2020-10-11 13:08 | ED_ITS ---
HPI - Altered Mental Status General: Chief Complaint: Altered Mental Status Stated Complaint: AMS/ BLURRY VISION Time Seen by Provider: 10/11/20 12:45 History of Present Illness: HPI narrative: Patient is a 74-year-old female from home seen for confusion, generalized weakness, and multiple seizures. On arrival, she admits that she is very sleepy and has an 8 of 10 throbbing headache with no focality. Family told EMS that she was a little confused last night before she went to bed and had a seizure today prior to 911 being called. In route, she had another seizure which lasted roughly 2 minutes. She states that she has been compliant with her home medication regimen. She takes Keppra for her seizures. She has atrial fibrillation and takes Xarelto. Besides her headache and weakness and mild confusion, she has no acute complaints. She explicitly denies chest pain, shortness of breath, abdominal pain, nausea, vomiting, dysuria, frequency, recent sickness or fever or cough. Review of Systems General: Reports: 10 or more systems reviewed and unremarkable except in HPI and below PFSH ED PFSH: Medical History (Updated 10/11/20 @ 15:24 by Werner Palafox MD) Atrial dysrhythmia Atrial fibrillation -has known hx of atrial fibrillation -presented in atrial flutter with RVR; rate controlled following dose of Cardizem -had previously been taken off digoxin and metoprolol due to bradycardia -telemetry monitoring -on AC with Eliquis -currently rate controlled; continue to monitor vital signs -continue Cardizem; resume beta-alexandrea -f/u with Dr. Guzman/Dr. Caballero Atrial flutter 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, managed as type 2 Diastolic heart failure Drug-induced bradycardia Digoxin was discontinued along beta-alexandrea Generalized epilepsy Heart failure Hypertension Hypothyroidism -on levothyroxine Non-insulin dependent diabetes mellitus -A1c (12/2019): 8.3 -Accucheks, ISS, hypoglycemia precautions -consistent carb diet as tolerated -takes metformin at home, can resume on d/c Paroxysmal A-fib Seizure Severe obstructive sleep apnea Sleep apnea in adult Stroke due to embolism of left middle cerebral artery -prior hx of L MCA CVA in 05/2019; did not receive tPA -has been f/u with Dr. Randall -attributed to atrial fibrillation -on ASA, statin, AC with Eliquis -has residual cognitive impairment Type 2 diabetes mellitus Surgical History No pertinent past surgical history Family History Sister Diabetes Father Heart disease Mother Heart disease Social History Smoking and tobacco status: former smoker Alcohol intake: never History of recent travel: Yes ([facility]) Physical Exam Const: COMMON NORMALS: no acute distress, patient oriented x3 and alert GENERAL APPEARANCE: cooperative, well kempt and other (Somnolent, mildly confused about recent events) HENMT: COMMON NORMALS: normocephalic and atraumatic HEAD & SCALP: normocephalic and atraumatic TEETH & GINGIVA: Yes other (Patient did not bite tongue with seizure today.) Eye: COMMON NORMALS: Equal, round and reactive pupils present, EOMs intact bilaterally and no scleral icterus PUPIL: Yes Equal, round and reactive pupils present Resp: COMMON NORMALS: normal respiratory effort and No retractions Cardio: COMMON NORMALS: regular rate, regular rhythm and No murmurs present (Cardio) RATE: regular rate RHYTHM: regular rhythm GI: COMMON NORMALS: Normal to inspection, nondistended, normoactive bowel sounds present, Soft to palpation and non-tender PALPATION: Yes Soft to palpation Back/Pelvis: OTHER: Patient lost control of bowels during her seizure today. Neuro: COMMON NORMALS: patient oriented x3 SENSORIUM/ORIENTATION: Yes alert OTHER: No lateralizing deficits. NIH equals 0. Mild confusion concerning recent events, but otherwise neurologically intact. Psych: APPEARANCE: Yes well kempt Skin: COMMON NORMALS: no rashes or lesions noted GENERAL SKIN EXAM: no rashes or lesions noted Course Vital Signs: Vital signs: Vital Signs Temperature 98.1 F 10/11/20 12:48 Pulse Rate 61 10/11/20 16:31 Respiratory Rate 12 10/11/20 16:31 Blood Pressure 149/67 10/11/20 16:31 Pulse Oximetry 89 L 10/11/20 16:31 MDM - Altered Mental Status MDM Narrative: Medical decision making narrative: Patient remained hemodynamically stable throughout ED course. Headache was much better after receiving morphine. She was given 1 mg of Ativan to keep from seizing again. She states that she has been compliant with her home medications, including Keppra 750 mg twice daily. I spoke with her and her and they feel that her last seizure was roughly 6 months ago. I do not see any other worrisome findings on radiographic or laboratory work-up at this time. She will be discharged home in stable and improved condition with follow-up to primary care. She knows that if she has another seizure, she should return to the emergency department for further work-up. Lab Data: Labs: Lab Results 10/11/20 10/11/20 10/11/20 Range/Units 12:59 13:30 13:30 WBC 8.1 (4.0-10.0) 10^3/ uL RBC 5.16 (4.1-5.3) 10^6/u L Hgb 15.7 H (11.5-15.3) g/dL Hct 49.9 H (37.0-47.0) % MCV 96.7 (81-99) fL MCH 30.4 (28.0-34.0) pg MCHC 31.5 (30.0-36.0) g/dL RDW 13.2 (12.1-15.1) % Plt Count 217 (130-400) 10^3/c mm MPV 11.4 H (7.4-10.4) fL Neut % (Auto) 67.6 % Lymph % (Auto) 22.6 % Foster % (Auto) 8.1 % Eos % (Auto) 1.1 % Baso % (Auto) 0.5 % Neut # (Auto) 5.44 (1.8-7.7) 10^3/u L Lymph # (Auto) 1.8 (0.8-4.8) 10^3/u L Foster # (Auto) 0.7 (0.2-0.9) 10^3/u L Eos # (Auto) 0.1 (0.0-0.8) 10^3/u L Baso # (Auto) 0.0 (0.0-0.1) 10^3/u L Nucleated RBC % (a uto) 0 % Nucleated RBCs # 0.0 /100WBC PT 12.90 (12.1-14.9) SECO NDS INR 0.95 (0.8-1.2) APTT 25.6 (23.9-36.7) SECO NDS Sodium (136-145) mmol/L Potassium (3.5-5.1) mmol/L Chloride (98-107) mmol/L Carbon Dioxide (22-29) mmol/L Anion Gap (5-19) BUN (8-23) mg/dL Creatinine (0.5-0.9) mg/dL GFR Calculation Glucose (65-115) mg/dL POC Glucose 144 H (70-110) mg/dL Calculated Osmolal ity (285-295) mOsm/k g Calcium (8.5-10.5) mg/dL Total Bilirubin (0.15-1.2) mg/dL AST (0-32) U/L ALT (0-33) U/L Alkaline Phosphata se (35-105) IU/L Troponin T Baselin e (0-10) ng/L Total Protein (6.6-8.7) g/dL Albumin (3.5-5.2) g/dL Globulin (1.3-4.6) g/dL TSH (0.27-4.20) uIU/ mL Urine Color (Yellow) Urine Appearance (CLEAR) Urine pH (5-7) Ur Specific Gravit y (1.005-1.030) Urine Protein (Negative) Urine Glucose (UA) (Normal) Urine Ketones (Negative) Urine Blood (Negative) Urine Nitrate (Negative) Urine Bilirubin (Negative) Prot Sulfosalicyli c Acd (Negative) Urine Urobilinogen (Negative) mg/dL Ur Leukocyte Nadya ase (Negative) 10/11/20 10/11/20 10/11/20 Range/Units 13:30 13:30 13:30 WBC (4.0-10.0) 10^3/ uL RBC (4.1-5.3) 10^6/u L Hgb (11.5-15.3) g/dL Hct (37.0-47.0) % MCV (81-99) fL MCH (28.0-34.0) pg MCHC (30.0-36.0) g/dL RDW (12.1-15.1) % Plt Count (130-400) 10^3/c mm MPV (7.4-10.4) fL Neut % (Auto) % Lymph % (Auto) % Foster % (Auto) % Eos % (Auto) % Baso % (Auto) % Neut # (Auto) (1.8-7.7) 10^3/u L Lymph # (Auto) (0.8-4.8) 10^3/u L Foster # (Auto) (0.2-0.9) 10^3/u L Eos # (Auto) (0.0-0.8) 10^3/u L Baso # (Auto) (0.0-0.1) 10^3/u L Nucleated RBC % (a uto) % Nucleated RBCs # /100WBC PT (12.1-14.9) SECO NDS INR (0.8-1.2) APTT (23.9-36.7) SECO NDS Sodium 142 (136-145) mmol/L Potassium 4.3 (3.5-5.1) mmol/L Chloride 100 (98-107) mmol/L Carbon Dioxide 30 H (22-29) mmol/L Anion Gap 16.3 (5-19) BUN 22 (8-23) mg/dL Creatinine 0.9 (0.5-0.9) mg/dL GFR Calculation Not Reportable Glucose 169 H (65-115) mg/dL POC Glucose (70-110) mg/dL Calculated Osmolal ity 301 H (285-295) mOsm/k g Calcium 10.7 H (8.5-10.5) mg/dL Total Bilirubin 0.3 (0.15-1.2) mg/dL AST 15 (0-32) U/L ALT 21 (0-33) U/L Alkaline Phosphata se 119 H (35-105) IU/L Troponin T Baselin e 17 H (0-10) ng/L Total Protein 6.8 (6.6-8.7) g/dL Albumin 4.3 (3.5-5.2) g/dL Globulin 2.5 (1.3-4.6) g/dL TSH 0.67 (0.27-4.20) uIU/ mL Urine Color Yellow (Yellow) Urine Appearance Clear (CLEAR) Urine pH 8.0 H (5-7) Ur Specific Gravit y 1.010 (1.005-1.030) Urine Protein Neg (Negative) Urine Glucose (UA) 4+ H (Normal) Urine Ketones 1+ H (Negative) Urine Blood Neg (Negative) Urine Nitrate Negative (Negative) Urine Bilirubin Neg (Negative) Prot Sulfosalicyli c Acd Negative (Negative) Urine Urobilinogen Norm (Negative) mg/dL Ur Leukocyte Nadya ase Negative (Negative) EKG Data^: EKG 1: EKG interpretation date: 10/11/20 EKG interpretation time: 12:59 Interpretation: Atrial paced rhythm, rate of 60, no ST elevation or depression, intervals within normal limits. Discharge Plan Discharge Patient Disposition: Home Clinical Impression: Seizure Condition: Stable Prescriptions: No Action aspirin [Adult Low Dose Aspirin] 81 mg tablet,delayed release (DR/EC) 81 mg PO DAILY RF: 0 biotin 5 mg capsule 5 mg PO DAILY RF: 0 albuterol sulfate [Ventolin HFA] 90 mcg/actuation HFA aerosol inhaler 2 puff INHALATION Q4H PRN (Reason: Shortness Of Breath) RF: 0 pantoprazole 40 mg tablet,delayed release (DR/EC) 40 mg PO DAILY Qty: 30 RF: 2 bumetanide 1 mg tablet 1 mg PO DAILY Qty: 90 RF: 1 empagliflozin 25 mg tablet 25 mg PO DAILY Qty: 90 RF: 0 glimepiride 4 mg tablet 4 mg PO DAILY Qty: 90 RF: 0 metformin 1,000 mg tablet extended release 24hr 1,000 mg PO BID Qty: 180 RF: 0 (DME) BIPAP MACHINE Qty: 1 RF: 0 (DME) BIPAP MASK Qty: 1 RF: 2 (DME) BIPAP SUPPLIES Qty: 1 RF: 2 scopolamine base 1 mg over 3 days patch 3 day 1 patch TRANSDERMA Q3D PRN (Reason: nausea and vomiting) Qty: 4 RF: 0 (DME) blood-glucose meter [Easy Plus II Blood Glucose Met] Misc See Rx Instructions .ROUTE .MEDSUPPLY Qty: 1 RF: 0 (DME) Easy Plus II Test Strip See Rx Instructions .ROUTE .MEDSUPPLY Qty: 50 RF: 0 atorvastatin 20 mg tablet 20 mg PO DAILY Qty: 90 RF: 3 hydrocodone-acetaminophen [Minden] 5-325 mg tablet 1 tab PO Q6H PRN (Reason: pain) 7 Days Qty: 12 RF: 0 metoprolol tartrate 50 mg Tablet 50 mg PO Q12H 30 Days Qty: 60 RF: 0 diltiazem HCl 180 mg capsule,extended release 24hr 180 mg PO DAILY RF: 0 amiodarone 200 mg tablet 200 mg PO DAILY RF: 0 lisinopril 20 mg tablet 20 mg PO DAILY RF: 0 levothyroxine 150 mcg tablet 150 mcg PO DAILY RF: 0 escitalopram oxalate 20 mg tablet 20 mg PO DAILY RF: 0 levetiracetam 750 mg tablet extended release 24 hr 1,500 mg PO DAILY RF: 0 Xarelto 20 mg tablet 20 mg PO DAILY RF: 0 Discharge Orders: Discharge ED (Routine); Ordered 10/11/20 Ordered By: Werner Palafox Referrals: Aretha Davies FNP [Primary Care Provider] - Discharge Diet: Advance as tolerated Discharge Activity: Increase activity as tolerated Patient Instructions: Epilepsy (ED) Activity Restrictions/Additional Instructions: Please remember to take all of your medications as prescribed. It is essential that you take your Keppra keep you from having seizures. If you are feeling unwell and that you might have a seizure, please lay down in a safe place. If you have another seizure or if you continue to feel unwell, please have no hesitation to return to the emergency department. Coding Level of Care Code ED Warehouse Assembly Worker for Morgan Sanchez Exam Detailed
[2020-10-11 13:29] VITALS: RESP 18; O2SAT 95
[2020-10-11] MEDS: morphine 4 mg/mL SDV 1 mL IVP (13:29)
[2020-10-11 13:41] LABS: Basophils % 0.5 %; Eosinophils # 0.1 10^3/uL (0.0-0.8); Eosinophils % 1.1 %; Hematocrit 49.9 % (37.0-47.0); Hemoglobin 15.7 g/dL (11.5-15.3); Lymphocytes # 1.8 10^3/uL (0.8-4.8); Lymphocytes % 22.6 %; Mean Corpuscular HGB Conc 31.5 g/dL (30.0-36.0); Mean Corpuscular Hemoglobin 30.4 pg (28.0-34.0); Mean Corpuscular Volume 96.7 fL (81-99); Mean Platelet Volume 11.4 fL (7.4-10.4); Monocytes # 0.7 10^3/uL (0.2-0.9); Monocytes % 8.1 %; Neutrophils # 5.44 10^3/uL (1.8-7.7); Neutrophils % 67.6 %; Nucleated Red Blood Cells % 0 %; Platelet Count 217 10^3/cmm (130-400); Red Blood Count 5.16 10^6/uL (4.1-5.3); Red Cell Distribution Width 13.2 % (12.1-15.1); White Blood Count 8.1 10^3/uL (4.0-10.0)
[2020-10-11 13:43] LABS: Add Urine Microscopic? NO
[2020-10-11 14:00] VITALS: BP 174/85; PULSE 61; RESP 17; O2SAT 96
[2020-10-11] MEDS: LORazepam 2 mg/mL INJ 1 mL 1 MG IVP (14:04)
[2020-10-11 14:08] LABS: INR 0.95 (0.8-1.2)
[2020-10-11 14:09] LABS: Partial Thromboplastin Time 25.6 SECONDS (23.9-36.7)
[2020-10-11 14:15] LABS: Bilirubin Urine Neg (Negative); Blood Urine Neg (Negative); Glucose Urine UA 4+ (Normal); Ketones Urine 1+ (Negative); Leukocyte Esterase Urine Negative (Negative); Nitrate Urine Negative (Negative); Protein Urine Neg (Negative); Sulfosalicylic Acid Urine Negative (Negative); Urine Appearance Clear (CLEAR); Urine Color Yellow (Yellow); Urobilinogen Urine Norm (Negative)
[2020-10-11 14:19] LABS: Troponin(5th) Baseline 17 ng/L (0-10)
[2020-10-11 14:25] LABS: Alanine Aminotransferase 21 U/L (0-33); Albumin Level 4.3 g/dL (3.5-5.2); Alkaline Phosphatase 119 IU/L (35-105); Anion Gap 16.3 (5-19); Aspartate Amino Transferase 15 U/L (0-32); Blood Urea Nitrogen 22 mg/dL (8-23); Calcium 10.7 mg/dL (8.5-10.5); Carbon Dioxide 30 mmol/L (22-29); Chloride 100 mmol/L (98-107); Globulin 2.5 g/dL (1.3-4.6); Glucose 169 mg/dL (65-115); Osmolality Calculated 301 mOsm/kg (285-295); Potassium 4.3 mmol/L (3.5-5.1); Sodium 142 mmol/L (136-145); Thyroid Stimulating Hormone 0.67 uIU/mL (0.27-4.20); Total Bilirubin 0.3 mg/dL (0.15-1.2); Total Protein 6.8 g/dL (6.6-8.7)
[2020-10-11 15:00] VITALS: BP 150/77; PULSE 61; RESP 16; O2SAT 98
[2020-10-11 16:31] VITALS: BP 149/67; PULSE 61; RESP 12; O2SAT 89
== END 2020-10-11 16:33 | disposition home or self-care (01) ==
PROVIDERS: Emergency Provider Student in an Organized Health Care Education/Training Program; PCP Registered Nurse
DX: R56.9 Unspecified convulsions (principal); Z79.82 Long term (current) use of aspirin; I48.91 Unspecified atrial fibrillation; E13.9 Other specified diabetes mellitus without complications; I10 Essential (primary) hypertension; Z86.73 Personal history of transient ischemic attack (TIA), and cerebral infarction without residual deficits; Z87.891 Personal history of nicotine dependence
CPT/HCPCS: 12345; 36416; 51702; 70450; 71045; 80053; 81003; 82962; 84443; 84484; 85025; 85610; 85730; 93005; 96374; 96375; 99283; 99284; J2060; J2270

== ENCOUNTER → 2021-01-20 09:11 | Outpatient (BNVA) | payer MEDICARE, OTHER, SELFPAY | PROVIDERS: PCP Registered Nurse; Visit Provider Registered Nurse | DX: R39.9 Unspecified symptoms and signs involving the genitourinary system (principal); E11.65 Type 2 diabetes mellitus with hyperglycemia; I10 Essential (primary) hypertension; E03.9 Hypothyroidism, unspecified; G31.84 Mild cognitive impairment of uncertain or unknown etiology; Z99.81 Dependence on supplemental oxygen; I50.32 Chronic diastolic (congestive) heart failure; B37.3 Candidiasis of vulva and vagina | CPT/HCPCS: 80053; 81000; 83036; 84443; 85025 ==

== ENCOUNTER 2021-03-04 20:00 | Outpatient (CLI) | payer MEDICARE, OTHER, SELFPAY | END 2021-03-04 20:01 | disposition home or self-care (01) | LOC: SLEEP 03-05 10:24 | PROVIDERS: PCP Registered Nurse; Visit Provider Internal Medicine Cardiovascular Disease | DX: G47.30 Sleep apnea, unspecified (principal) | CPT/HCPCS: 95811 ==

== ENCOUNTER 2021-03-05 13:19 | Emergency (ER) | payer MEDICARE, OTHER, SELFPAY ==
[2021-03-05 13:21] VITALS: BP 198/71; PULSE 60; RESP 18; TEMP 36.9; O2SAT 74; BMI 36.6
[2021-03-05 13:31] VITALS: BP 206/88; PULSE 60; RESP 18; O2SAT 99
[2021-03-05 13:32] VITALS: O2SAT 99
--- NOTE | 2021-03-05 13:32 | XR_ITS ---
WS: [id number] Portable AP upright chest, 03/05/2021 Clinical Data: low O2 Comparison: Portable chest, 10/11/2020. Findings: No nodules, masses or effusions are seen. The heart is slightly enlarged. The pulmonary vas cularity is not increased. No pneumonia or pneumothorax is seen. The 2-lead pacemaker has not changed in position. The aortic arch and descending aorta show tortuosity. Monitor leads are on the chest wa ll. XR/XR chest 1V portable [id number] Impression: 1. Atherosclerosis and mild cardiomegaly. 2. Permanent cardiac pacemaker.
[2021-03-05] MEDS: levETIRAcetam 750 MG in sodium chloride 0.9% (100 ml) 100 ML 430 MG IV (13:45)
--- NOTE | 2021-03-05 14:03 | ED_ITS ---
HPI - Seizure General: Chief Complaint: Seizure Stated Complaint: SEIZURE, NAUSEA Time Seen by Provider: 03/05/21 13:32 History of Present Illness: HPI Narrative: 75-year-old female brought in secondary to seizure. The patient upon arrival is awake and alert. She states that she is very tired as she had a sleep study done last night. She got home about 7 AM. She does admit she has not taken any of her medications this morning. complaint: seizure Description of Episode: tonic-clonic movement Witnessed: Yes - by Other (Family) Trauma: No Seizure History: Yes Place: Home Possible Precipitating Event: lack of sleep and medication (Did not take any of her medications this morning.) Associated symptoms: Reports no associated symptoms; Deny chest pain, chills, confusion, fever(s) or syncope Treatments prior to arrival: none Review of Systems Narrative: Patient is post seizure. She is at this time however awake and alert. She answers all questions appropriately and follows commands. Const: Denies: fever(s), chills, body aches, change in appetite or fatigue Eyes: Denies: change in vision, blurry vision or photophobia ENMT: Denies: throat pain, ear or mastoid pain or nasal discharge Card: Denies: chest pain, palpitations, irregular heart rhythm, edema, swelling of feet/ankles, lightheadedness, syncope, dyspnea on exertion, orthopnea or leg pain with exertion Resp: Denies: dyspnea, productive cough, non-productive cough, wheezing, stridor, pain on inspiration or change in phlegm color GI: Denies: abdominal pain, nausea, vomiting, dysphagia, heartburn, diarrhea or constipation : Denies: flank pain, difficulty voiding or dysuria Musc: Denies: neck pain, back pain, extremity pain, extremity swelling or joint swelling Skin/Breast: Denies: rash Neuro: Reports: seizure-like activity; Denies: headache(s), numbness in extremities, weakness in extremities, lack of c oordination, difficulty walking, frequent falls, dizziness, vertigo, confusion or Slurred speech present Psych: Denies: anxiety or depression [facility] ED PFSH: Medical History (Updated 03/05/21 @ 16:56 by Shashank Caballero) Atrial dysrhythmia Atrial fibrillation Atrial flutter 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 Randall -attributed to atrial fibrillation -on ASA, statin, AC with Eliquis -has residual cognitive impairment Type 2 diabetes mellitus Surgical History No pertinent past surgical history Family History Sister Diabetes Father Heart disease Mother Heart disease Social History Smoking and tobacco status: former smoker Alcohol intake: never History of recent travel: Yes ([facility]) Physical Exam Narrative: EXAM NARRATIVE: Pleasant 75-year-old female in no acute distress. She is awake and alert, follows all commands. Const: COMMON NORMALS: no acute distress, patient oriented x3, healthy appearing and alert EXAM LIMITATIONS: no altered mental status GENERAL APPEARANCE: cooperative, comfortable, well kempt and well developed; not in distress, not anxious, not combative, not disheveled, not lethargic, not ill appearing and not frail appearing NUTRITIONAL APPEARANCE: obese ORIENTATION/CONSCIOUSNESS: Yes oriented to place and Yes oriented to time; not lethargic HENMT: COMMON NORMALS: normocephalic, atraumatic and moist oral mucous membranes HEAD & SCALP: normal to inspection, normocephalic and atraumatic Eye: COMMON NORMALS: Equal, round and reactive pupils present, EOMs intact bilaterally, conjunctivae normal and no scleral icterus GENERAL EYE: appearance normal, both eyes and all related structures and normal light reflex CONJUNCTIVA: Yes conjunctivae normal PUPIL: Yes Equal, round and reactive pupils present DIRECT OPHTHALMOSCOPY: Yes normal light reflex Neck/C-Spine: COMMON NORMALS: full ROM, no lymphadenopathy, supple, no meningeal signs and no JVD GENERAL: Yes normal visual inspection, Yes trachea midline and No anterior neck swelling Chest: COMMONS NORMALS: normal inspection of the chest and normal palpation of entire chest wall Resp: COMMON NORMALS: normal respiratory effort, No retractions, No use of accessory muscles and clear to auscultation bilaterally EFFORT & INSPECTION: Yes able to speak in complete sentences and Yes symmetric chest movement AUSCULTATION: clear to auscultation bilaterally, no crackles, no rales, no rhonchi, no wheezes and lung sounds not diminished Cardio: COMMON NORMALS: no JVD, regular rate, regular rhythm, No gallops present (Cardio), No clicks present (Cardio), No murmurs present (Cardio), No rub (Cardio) and Peripheral pulses 2+ throughout RATE: regular rate RHYTHM: regular rhythm PERIPHERAL PULSES: Peripheral pulses 2+ throughout GI: COMMON NORMALS: Normal to inspection, nondistended, normoactive bowel sounds present, Soft to palpation, non-tender, No hepatosplenomegaly present and no masses PALPATION: Yes Soft to palpation, No Firmness to palpation present (GI), No Tenderness to palpation present (GI) and Yes No hepatosplenomegaly present : COMMON NORMALS: Yes no CVA tenderness BLADDER/KIDNEY EXAM: Yes no CVA tenderness Back/Pelvis: COMMON NORMALS: no CVA tenderness Extremity: COMMON NORMALS: normal to inspection, full ROM, capillary refill normal, no joint enlargement, no clubbing, cyanosis or edema, no calf tenderness and no pedal edema Neuro: COMMON NORMALS: patient oriented x3, CN's II-XII intact bilaterally, moves all extremities, no focal motor deficits, deep tendon reflexes 2+ bilaterally and gait normal SENSORIUM/ORIENTATION: Yes alert, Yes oriented to place, Yes oriented to time and No lethargic MENINGEAL SIGNS: Yes no meningeal signs Psych: APPEARANCE: Yes well kempt Course Vital Signs: Vital signs: Vital Signs Temperature 98.5 F 03/05/21 13:21 Pulse Rate 60 03/05/21 17:34 Respiratory Rate 16 03/05/21 17:34 Blood Pressure 160/81 03/05/21 17:34 Pulse Oximetry 94 03/05/21 17:34 MDM - Seizure Lab Data: Labs: Lab Results 03/05/21 03/05/21 03/05/21 Range/Units 14:30 14:30 14:50 WBC 6.1 (4.0-10.0) 10^3/ uL RBC 4.49 (4.1-5.3) 10^6/u L Hgb 13.7 (11.5-15.3) g/dL Hct 47.3 H (37.0-47.0) % MCV 105.3 H (81-99) fL MCH 30.5 (28.0-34.0) pg MCHC 29.0 L (30.0-36.0) g/dL RDW 14.1 (12.1-15.1) % Plt Count 183 (130-400) 10^3/c mm MPV 10.9 H (7.4-10.4) fL Neut % (Auto) 67.4 % Lymph % (Auto) 20.5 % Leake % (Auto) 9.7 % Eos % (Auto) 1.3 % Baso % (Auto) 0.8 % Neut # (Auto) 4.11 (1.8-7.7) 10^3/u L Lymph # (Auto) 1.3 (0.8-4.8) 10^3/u L Leake # (Auto) 0.6 (0.2-0.9) 10^3/u L Eos # (Auto) 0.1 (0.0-0.8) 10^3/u L Baso # (Auto) 0.1 (0.0-0.1) 10^3/u L Nucleated RBC % (a uto) 0 % Nucleated RBCs # 0.0 /100WBC D-Dimer (0-0.59) ug/mIFE U Sodium 139 (136-145) mmol/L Potassium 4.4 (3.5-5.1) mmol/L Chloride 103 (98-107) mmol/L Carbon Dioxide 25 (22-29) mmol/L Anion Gap 15.4 (5-19) BUN 20 (8-23) mg/dL Creatinine 0.8 (0.5-0.9) mg/dL GFR Calculation Not Reportable Glucose 197 H (65-115) mg/dL Calculated Osmolal ity 296 H (285-295) mOsm/k g Calcium 9.4 (8.5-10.5) mg/dL Total Bilirubin 0.2 (0.15-1.2) mg/dL AST 17 (0-32) U/L ALT 22 (0-33) U/L Alkaline Phosphata se 100 (35-105) IU/L Creatine Kinase 45 (26-192) U/L Total Protein 6.4 L (6.6-8.7) g/dL Albumin 3.8 (3.5-5.2) g/dL Globulin 2.6 (1.3-4.6) g/dL Urine Color Yellow (Yellow) Urine Appearance Clear (CLEAR) Urine pH 7 (5-7) Ur Specific Gravit y 1.010 (1.005-1.030) Urine Protein Neg (Negative) Urine Glucose (UA) 4+ H (Normal) Urine Ketones Negative (Negative) Urine Blood Neg (Negative) Urine Nitrate Negative (Negative) Urine Bilirubin Neg (Negative) Urine Urobilinogen Norm (Negative) mg/dL Ur Leukocyte Nadya ase Negative (Negative) 03/05/21 Range/Units 15:01 WBC (4.0-10.0) 10^3/ uL RBC (4.1-5.3) 10^6/u L Hgb (11.5-15.3) g/dL Hct (37.0-47.0) % MCV (81-99) fL MCH (28.0-34.0) pg MCHC (30.0-36.0) g/dL RDW (12.1-15.1) % Plt Count (130-400) 10^3/c mm MPV (7.4-10.4) fL Neut % (Auto) % Lymph % (Auto) % Leake % (Auto) % Eos % (Auto) % Baso % (Auto) % Neut # (Auto) (1.8-7.7) 10^3/u L Lymph # (Auto) (0.8-4.8) 10^3/u L Leake # (Auto) (0.2-0.9) 10^3/u L Eos # (Auto) (0.0-0.8) 10^3/u L Baso # (Auto) (0.0-0.1) 10^3/u L Nucleated RBC % (a uto) % Nucleated RBCs # /100WBC D-Dimer 0.29 (0-0.59) ug/mIFE U Sodium (136-145) mmol/L Potassium (3.5-5.1) mmol/L Chloride (98-107) mmol/L Carbon Dioxide (22-29) mmol/L Anion Gap (5-19) BUN (8-23) mg/dL Creatinine (0.5-0.9) mg/dL GFR Calculation Glucose (65-115) mg/dL Calculated Osmolal ity (285-295) mOsm/k g Calcium (8.5-10.5) mg/dL Total Bilirubin (0.15-1.2) mg/dL AST (0-32) U/L ALT (0-33) U/L Alkaline Phosphata se (35-105) IU/L Creatine Kinase (26-192) U/L Total Protein (6.6-8.7) g/dL Albumin (3.5-5.2) g/dL Globulin (1.3-4.6) g/dL Urine Color (Yellow) Urine Appearance (CLEAR) Urine pH (5-7) Ur Specific Gravit y (1.005-1.030) Urine Protein (Negative) Urine Glucose (UA) (Normal) Urine Ketones (Negative) Urine Blood (Negative) Urine Nitrate (Negative) Urine Bilirubin (Negative) Urine Urobilinogen (Negative) mg/dL Ur Leukocyte Nadya ase (Negative) Discharge Plan Discharge Patient Disposition: Home Clinical Impression: Generalized seizure disorder Hypertension Qualifiers: Hypertension type: essential hypertension Qualified Code(s): I10 - Essential (primary) hypertension Condition: Stable Prescriptions: No Action aspirin [Adult Low Dose Aspirin] 81 mg tablet,delayed release (DR/EC) 81 mg PO DAILY@0800 RF: 0 biotin 5 mg capsule 5 mg PO DAILY@0800 RF: 0 albuterol sulfate [Ventolin HFA] 90 mcg/actuation HFA aerosol inhaler 2 puff INHALATION Q4H PRN (Reason: Shortness Of Breath) RF: 0 (DME) BIPAP MACHINE Qty: 1 RF: 0 (DME) BIPAP MASK Qty: 1 RF: 2 (DME) BIPAP SUPPLIES Qty: 1 RF: 2 (DME) blood-glucose meter [Easy Plus II Blood Glucose Met] Misc See Rx Instructions .ROUTE .MEDSUPPLY Qty: 1 RF: 0 (DME) Easy Plus II Test Strip See Rx Instructions .ROUTE .MEDSUPPLY Qty: 50 RF: 0 diltiazem HCl 180 mg capsule,extended release 24hr 180 mg PO DAILY@0800 RF: 0 atorvastatin 20 mg tablet 20 mg PO DAILY@0800 RF: 0 lisinopril 20 mg tablet 20 mg PO DAILY@0800 RF: 0 pantoprazole 40 mg tablet,delayed release (DR/EC) 40 mg PO DAILY@0800 RF: 0 glimepiride 4 mg tablet 4 mg PO DAILY@0800 RF: 0 levothyroxine 150 mcg tablet 150 mcg PO DAILY@0800 RF: 0 metoprolol tartrate 50 mg tablet 50 mg PO BID@0800,2000 RF: 0 bumetanide 1 mg tablet 1 mg PO DAILY@0800 RF: 0 metformin 500 mg tablet extended release 24 hr 1,000 mg PO BID@0800,1999 RF: 0 escitalopram oxalate 20 mg tablet 20 mg PO DAILY@0800 RF: 0 levetiracetam 750 mg tablet extended release 24 hr 750 mg PO DAILY@0800 RF: 0 Xarelto 20 mg tablet 20 mg PO DAILY@0800 RF: 0 empagliflozin 25 mg tablet 25 mg PO DAILY@0800 RF: 0 1 tab PO DAILY@0800 RF: 0 amiodarone 200 mg tablet 200 mg PO DAILY@0800 RF: 0 Discharge Orders: Discharge ED (Routine); Ordered 03/05/21 Ordered By: Shashank Caballero Referrals: Aretha Davies FNP [Primary Care Provider] - Discharge Diet: Usual diet Discharge Activity: Increase activity as tolerated Patient Instructions: Opioid Safety Activity Restrictions/Additional Instructions: Please take all your normal medications as prescribed. Follow-up with your primary care provider. Coding Level of Care Code ED Plate Furnace Operator for Morgan Fwd Exam Comprehensive
[2021-03-05] MEDS: metoprolol tartrate 1 mg/1 mL SDV 5 mL 5 MG IV (14:41)
[2021-03-05 14:52] LABS: Basophils # 0.1 10^3/uL (0.0-0.1); Basophils % 0.8 %; Eosinophils # 0.1 10^3/uL (0.0-0.8); Eosinophils % 1.3 %; Hematocrit 47.3 % (37.0-47.0); Hemoglobin 13.7 g/dL (11.5-15.3); Lymphocytes # 1.3 10^3/uL (0.8-4.8); Lymphocytes % 20.5 %; Mean Corpuscular Hemoglobin 30.5 pg (28.0-34.0); Mean Corpuscular Volume 105.3 fL (81-99); Mean Platelet Volume 10.9 fL (7.4-10.4); Monocytes # 0.6 10^3/uL (0.2-0.9); Monocytes % 9.7 %; Neutrophils # 4.11 10^3/uL (1.8-7.7); Neutrophils % 67.4 %; Nucleated Red Blood Cells % 0 %; Platelet Count 183 10^3/cmm (130-400); Red Blood Count 4.49 10^6/uL (4.1-5.3); Red Cell Distribution Width 14.1 % (12.1-15.1); White Blood Count 6.1 10^3/uL (4.0-10.0)
[2021-03-05 14:56] VITALS: BP 112/62; PULSE 60; RESP 20; O2SAT 98
[2021-03-05 15:08] LABS: Add Urine Microscopic? NO; Charge for UA Resulting for Rev
[2021-03-05 15:17] LABS: Alanine Aminotransferase 22 U/L (0-33); Albumin Level 3.8 g/dL (3.5-5.2); Alkaline Phosphatase 100 IU/L (35-105); Blood Urea Nitrogen 20 mg/dL (8-23); Calcium 9.4 mg/dL (8.5-10.5); Carbon Dioxide 25 mmol/L (22-29); Chloride 103 mmol/L (98-107); Creatine Phosphokinase 45 U/L (26-192); Creatinine Clr Calc Pharmacy 73.2796; Globulin 2.6 g/dL (1.3-4.6); Glucose 197 mg/dL (65-115); Osmolality Calculated 296 mOsm/kg (285-295); Sodium 139 mmol/L (136-145); Total Bilirubin 0.2 mg/dL (0.15-1.2); Total Protein 6.4 g/dL (6.6-8.7)
[2021-03-05 15:18] LABS: Anion Gap 15.4 (5-19); Aspartate Amino Transferase 17 U/L (0-32); Potassium 4.4 mmol/L (3.5-5.1)
[2021-03-05 15:25] LABS: Bilirubin Urine Neg (Negative); Blood Urine Neg (Negative); Glucose Urine UA 4+ (Normal); Ketones Urine Negative (Negative); Leukocyte Esterase Urine Negative (Negative); Nitrate Urine Negative (Negative); Protein Urine Neg (Negative); Urine Appearance Clear (CLEAR); Urine Color Yellow (Yellow); Urobilinogen Urine Norm (Negative); pH Urine 7 (5-7)
[2021-03-05 15:37] LABS: D Dimer 0.29 ug/mIFEU (0-0.59)
[2021-03-05 17:34] VITALS: BP 160/81; PULSE 60; RESP 16; O2SAT 94
== END 2021-03-05 17:35 | disposition home or self-care (01) ==
PROVIDERS: Emergency Provider Emergency Medicine; PCP Registered Nurse
DX: G40.409 Other generalized epilepsy and epileptic syndromes, not intractable, without status epilepticus (principal); I11.0 Hypertensive heart disease with heart failure; I50.30 Unspecified diastolic (congestive) heart failure; Z79.82 Long term (current) use of aspirin; Z79.84 Long term (current) use of oral hypoglycemic drugs; I48.91 Unspecified atrial fibrillation; Z87.891 Personal history of nicotine dependence; E11.9 Type 2 diabetes mellitus without complications
CPT/HCPCS: 36415; 71045; 80053; 81003; 82550; 85025; 85378; 96374; 96375; 99284; J1953; J3490

== ENCOUNTER → 2021-04-14 14:41 | Outpatient (BNVA) | payer MEDICARE, OTHER, SELFPAY | PROVIDERS: PCP Registered Nurse; Referring Provider Registered Nurse; Visit Provider Specialist | DX: G40.309 Generalized idiopathic epilepsy and epileptic syndromes, not intractable, without status epilepticus (principal) | CPT/HCPCS: 99214 ==

== ENCOUNTER → 2021-07-14 10:32 | Outpatient (BNVA) | payer MEDICARE, OTHER, SELFPAY | PROVIDERS: PCP Registered Nurse; Visit Provider Registered Nurse | DX: I10 Essential (primary) hypertension (principal); E11.65 Type 2 diabetes mellitus with hyperglycemia | CPT/HCPCS: 80053; 83036 ==

== ENCOUNTER → 2021-08-19 10:53 | Outpatient (BNVA) | payer MEDICARE, OTHER, SELFPAY | PROVIDERS: PCP Registered Nurse; Visit Provider Specialist | DX: G40.309 Generalized idiopathic epilepsy and epileptic syndromes, not intractable, without status epilepticus (principal); G43.711 Chronic migraine without aura, intractable, with status migrainosus; G47.33 Obstructive sleep apnea (adult) (pediatric); K21.9 Gastro-esophageal reflux disease without esophagitis; Z87.891 Personal history of nicotine dependence | CPT/HCPCS: 99214 ==

== ENCOUNTER 2021-11-12 14:27 | Inpatient (IN) | payer MEDICARE, OTHER, SELFPAY ==
[2021-11-12] VITALS (8 sets, daily range): BP systolic 130–162; BP diastolic 73–96; PULSE 76–94; RESP 18–22; TEMP 36.8; O2SAT 92–96; BMI 30.7
--- NOTE | 2021-11-12 14:28 | XR_ITS ---
WS: [id number] Exam: XR chest 1V portable [id number] Date/Time of Exam: 11/12/2021 3:09 PM Reason For Exam: dyspnea/cough Comparison 03/05/2021. Mild groundglass infiltrates and plaque atelectasis noted in the mid and lower right lung and the mid left lung. Findings suspicious for pneumonia. Heart size is normal. No pleural effusions. The lungs are fully expanded. The mediastinum and osseous thorax are unremarkable. A permanent cardiac pacer fajardo perimposes the left chest. XR/XR chest 1V portable [id number] IMPRESSION: 1. Groundglass infiltrates in the mid and lower right lung as well as the mid l eft lung suspicious for pneumonia. Appearance is nonspecific but Covid pneumoni a may have this appearance.
--- NOTE | 2021-11-12 14:28 | ECG_ITS ---
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 Measurements Intervals [place] Rate: 82 P: 87 [place]: 162 QRS: 3 QRSD: 95 T: 14 QT: 375 QTc: 440 Interpretive Statements SINUS RHYTHM LEFT VENTRICULAR HYPERTROPHY AND ST-T CHANGE [VOLTAGE CRITERIA PLUS ST/T ABNORMALITY] POSSIBLE SEPTAL MYOCARDIAL INFARCTION , OF INDETERMINATE AGE [30 ms Q WAVE IN V1/V2] Compared to ECG 10/11/2020 12:59:01 ST (T wave) deviation now present Myocardial infarct finding now present Atrial-paced complex(es) or rhythm no longer present T-wave abnormality no longer present Electronically Signed On 11-12-2021 17:51:15 CONVENTIONS RESERVATIONIST by Micah Coleman M.D. [id number]
[2021-11-12 15:13] LABS: Basophils % 0.2 %; Hematocrit 48.5 % (37.0-47.0); Hemoglobin 15.7 g/dL (11.5-15.3); Lymphocytes % 11.3 %; Mean Corpuscular HGB Conc 32.4 g/dL (30.0-36.0); Mean Corpuscular Hemoglobin 30.5 pg (28.0-34.0); Mean Corpuscular Volume 94.4 fl (81-99); Mean Platelet Volume 11.7 fL (7.4-10.4); Monocytes # 0.6 10^3/uL (0.2-0.9); Monocytes % 6.5 %; Neutrophils # 7.27 10^3/uL (1.8-7.7); Neutrophils % 81.3 %; Nucleated Red Blood Cells % 0 %; Platelet Count 148 10^3/cmm (130-400); Red Blood Count 5.14 10^6/uL (4.1-5.3); Red Cell Distribution Width 13.6 % (12.1-15.1); White Blood Count 8.9 10^3/uL (4.0-10.0)
--- NOTE | 2021-11-12 15:13 | PC.NURSE ---
pt arrives via ems. pt seems to not be able to gather her words. pt states she has a hx of stroke. pt states she has aches all over. pt alert and oriented.
--- NOTE | 2021-11-12 15:40 | ED_ITS ---
Documented by User: Joe Lofton DO 11/19/21 07:27 HPI - General Adult General: Chief complaint: ER Hold Stated complaint: weakness Time Seen by Provider: 11/12/21 14:40 History of Present Illness: HPI narrative: 75-year-old female who comes in complaining of generalized myalgias aches and mild cough. She is normally on oxygen at 2 L/min and is continuing on the same. She has a history of atrial fibrillation. Her biggest complaint is the generalized weakness she denies any chest or abdominal pain. Onset (ago): week(s) (2) Quality: aching Relieving factors: none Exacerbating factors: none Associated symptoms: Reports confusion, cough, dyspnea, malaise and short of breath; Deny chest pain, diaphoresis, decreased appetite, fevers/chills, headache(s), nausea, rash, palpitations, seizures, syncope, vomiting or weakness Treatments prior to arrival: none Review of Systems Const: Reports: malaise; Denies: diaphoresis ENMT: Denies: throat pain, ear or mastoid pain, nasal discharge or nasal congestion Card: Denies: chest pain, palpitations or syncope Resp: Reports: dyspnea GI: Denies: nausea or vomiting : Denies: flank pain, difficulty voiding, dysuria, urinary frequency or urinary urgency Skin/Breast: Denies: rash Neuro: Reports: confusion; Denies: headache(s) PFS ED PFSH: Medical History (Updated 11/19/21 @ 00:00 by ) Atrial dysrhythmia Atrial fibrillation Atrial flutter CHF (congestive heart failure) 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, managed as type 2 Diastolic heart failure Drug-induced bradycardia Digoxin was discontinued along beta-alexandrea Generalized epilepsy Heart failure Hypertension Hypothyroidism -on levothyroxine Non-insulin dependent diabetes mellitus -A1c (12/2019): 8.3 -Accucheks, ISS, hypoglycemia precautions -consistent carb diet as tolerated -takes metformin at home, can resume on d/c Obstructive sleep apnea Paroxysmal A-fib Seizure Severe obstructive sleep apnea Sleep apnea Sleep apnea in adult Stroke due to embolism of left middle cerebral artery -prior hx of L MCA CVA in 05/2019; did not receive tPA -has been f/u with Dr. 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 Surgical History (Updated 11/19/21 @ 00:00 by ) No pertinent past surgical history Status post cardiac pacemaker procedure Family History Sister Diabetes Father Heart disease Mother Heart disease Social History Smoking and tobacco status: former smoker Alcohol intake: never History of recent travel: No Physical Exam Const: GENERAL APPEARANCE: cooperative and comfortable ORIENTATION/CONSCIOUSNESS: Yes awake, Yes oriented to person, Yes oriented to place and Yes oriented to time HENMT: COMMON NORMALS: normocephalic, atraumatic and hearing grossly normal bilaterally HEAD & SCALP: normocephalic and atraumatic Neck/C-Spine: COMMON NORMALS: no JVD Resp: EFFORT & INSPECTION: Yes tachypneic AUSCULTATION: crackles and wheezes Cardio: COMMON NORMALS: no JVD, regular rate, regular rhythm and No murmurs present (Cardio) RATE: regular rate RHYTHM: regular rhythm GI: COMMON NORMALS: No hepatosplenomegaly present AUSCULTATION: Yes normoactive bowel sounds PALPATION: Yes Tenderness to palpation present (GI) (Diffuse), No Guarding due to palpation present (GI) and Yes No hepatosplenomegaly present Extremity: COMMON NORMALS: normal to inspection, capillary refill normal, no clubbing, cyanosis or edema, no calf tenderness and no pedal edema Neuro: SENSORIUM/ORIENTATION: Yes oriented to person, Yes oriented to place and Yes oriented to time Skin: COMMON NORMALS: no rashes or lesions noted GENERAL SKIN EXAM: no rashes or lesions noted Course Vital Signs: Vital signs: Vital Signs Temperature 98.1 F 11/18/21 08:00 Pulse Rate 76 11/18/21 13:05 Respiratory Rate 17 11/18/21 13:05 Blood Pressure 110/72 11/18/21 08:00 Pulse Oximetry 94 11/18/21 13:05 MDM - General Adult MDM Narrative Medical decision making narrative: Care turned over to Dr. Lozano at change of shift see his note final diagnosis and disposition Lab Data Result diagrams: 11/18/21 05:39 11/18/21 05:39 Labs: Lab Results 11/12/21 11/12/21 11/12/21 14:45 14:45 14:45 WBC 8.9 10^3/uL 10^3/uL (4.0-10.0) RBC 5.14 10^6/uL 10^6/uL (4.1-5.3) Hgb 15.7 g/dL H g/dL (11.5-15.3) Hct 48.5 % H % (37.0-47.0) MCV 94.4 fl fl (81-99) MCH 30.5 pg pg (28.0-34.0) MCHC 32.4 g/dL g/dL (30.0-36.0) RDW 13.6 % % (12.1-15.1) Plt Count 148 10^3/cmm 10^3/cmm (130-400) MPV 11.7 fL H fL (7.4-10.4) Neut % (Auto) 81.3 % % Lymph % (Auto) 11.3 % % [place] % (Auto) 6.5 % % Eos % (Auto) 0.0 % % Baso % (Auto) 0.2 % % Neut # (Auto) 7.27 10^3/uL 10^3/uL (1.8-7.7) Lymph # (Auto) 1.0 10^3/uL 10^3/uL (0.8-4.8) [place] # (Auto) 0.6 10^3/uL 10^3/uL (0.2-0.9) Eos # (Auto) 0.0 10^3/uL 10^3/uL (0.0-0.8) Baso # (Auto) 0.0 10^3/uL 10^3/uL (0.0-0.1) Nucleated RBC % (auto) 0 % % Nucleated RBCs # 0.0 /100WBC /100WBC D-Dimer Sodium 136 mmol/L mmol/L (136-145) Potassium 3.2 mmol/L L mmol/L (3.5-5.1) Chloride 97 mmol/L L mmol/L (98-107) Carbon Dioxide 21 mmol/L L mmol/L (22-29) Anion Gap 21.2 H (5-19) BUN 21 mg/dL mg/dL (8-23) Creatinine 1.0 mg/dL H mg/dL (0.5-0.9) GFR Calculation Not Reportable Glucose 113 mg/dL mg/dL (65-115) Calculated Osmolality 286 mOsm/kg mOsm/kg (285-295) Calcium 9.5 mg/dL mg/dL (8.5-10.5) Total Bilirubin 0.5 mg/dL mg/dL (0.15-1.2) AST 1312 U/L H U/L (0-32) ALT 1571 U/L H U/L (0-33) Alkaline Phosphatase 122 IU/L H IU/L (35-105) Troponin T Baseline 72 ng/L H ng/L (0-10) Troponin T 120 Minute Delta Troponin T NT-Pro-B Natriuret Pep Total Protein 6.7 g/dL g/dL (6.6-8.7) Albumin 3.4 g/dL L g/dL (3.5-5.2) Globulin 3.3 g/dL g/dL (1.3-4.6) Lipase Urine Color Urine Appearance Urine pH Ur Specific [place] Urine Protein Urine Glucose (UA) Urine Ketones Urine Blood Urine Nitrate Urine Bilirubin Urine Urobilinogen Ur Leukocyte Esterase Urine RBC Urine WBC Ur Squamous Epith Cells Ur Transition Epith Cell Amorphous Sediment Urine Bacteria Hyaline Casts Coarse Granular Casts Coronavirus 229E (PCR) Hepatitis A IgM Ab Hep Bs Antigen Hep Bs Antibody Hep B Core Total Ab Hepatitis C Antibody SARS-CoV-2 (PCR) 11/12/21 11/12/21 11/12/21 14:45 14:45 14:45 WBC RBC Hgb Hct MCV MCH MCHC RDW Plt Count MPV Neut % (Auto) Lymph % (Auto) [place] % (Auto) Eos % (Auto) Baso % (Auto) Neut # (Auto) Lymph # (Auto) [place] # (Auto) Eos # (Auto) Baso # (Auto) Nucleated RBC % (auto) Nucleated RBCs # D-Dimer 2.03 ug/mIFEU H ug/mIFEU (0-0.59) Sodium Potassium Chloride Carbon Dioxide Anion Gap BUN Creatinine GFR Calculation Glucose Calculated Osmolality Calcium Total Bilirubin AST ALT Alkaline Phosphatase Troponin T Baseline Troponin T 120 Minute Delta Troponin T NT-Pro-B Natriuret Pep 7014 pg/mL H pg/mL (0-125) Total Protein Albumin Globulin Lipase Urine Color Urine Appearance Urine pH Ur Specific [place] Urine Protein Urine Glucose (UA) Urine Ketones Urine Blood Urine Nitrate Urine Bilirubin Urine Urobilinogen Ur Leukocyte Esterase Urine RBC Urine WBC Ur Squamous Epith Cells Ur Transition Epith Cell Amorphous Sediment Urine Bacteria Hyaline Casts Coarse Granular Casts Coronavirus 229E (PCR) Hepatitis A IgM Ab Non-reactive (Nonreactive) Hep Bs Antigen Non-reactive (Nonreactive) Hep Bs Antibody 3.5 L (11.5-1000) Hep B Core Total Ab Non-reactive (Nonreactive) Hepatitis C Antibody Non-reactive (Nonreactive) SARS-CoV-2 (PCR) 11/12/21 11/12/21 11/12/21 14:45 15:38 16:15 WBC RBC Hgb Hct MCV MCH MCHC RDW Plt Count MPV Neut % (Auto) Lymph % (Auto) [place] % (Auto) Eos % (Auto) Baso % (Auto) Neut # (Auto) Lymph # (Auto) [place] # (Auto) Eos # (Auto) Baso # (Auto) Nucleated RBC % (auto) Nucleated RBCs # D-Dimer Sodium Potassium Chloride Carbon Dioxide Anion Gap BUN Creatinine GFR Calculation Glucose Calculated Osmolality Calcium Total Bilirubin AST ALT Alkaline Phosphatase Troponin T Baseline Troponin T 120 Minute Delta Troponin T NT-Pro-B Natriuret Pep Total Protein Albumin Globulin Lipase 58 U/L U/L (13-60) Urine Color Yellow (Yellow) Urine Appearance Hazy A (CLEAR) Urine pH 5 (5-7) Ur Specific [place] 1.025 (1.005-1.030) Urine Protein 1+ H (Negative) Urine Glucose (UA) 4+ H (Normal) Urine Ketones 1+ H (Negative) Urine Blood 2+ H (Negative) Urine Nitrate Negative (Negative) Urine Bilirubin 1+ H (Negative) Urine Urobilinogen 4 mg/dL H mg/dL (Negative) Ur Leukocyte Esterase Negative (Negative) Urine RBC 5-10 /hpf H /hpf (0-2) Urine WBC 5-10 /hpf H /hpf (0-5) Ur Squamous Epith Cells None /hpf /hpf (0-5) Ur Transition Epith Cell None /hpf /hpf Amorphous Sediment Not Reportable Urine Bacteria 2+ /hpf H /hpf (NONE) Hyaline Casts 10-15 /lpf H /lpf Coarse Granular Casts 0-4 /lpf H /lpf Coronavirus 229E (PCR) Not detected (NOT DETECT) Hepatitis A IgM Ab Hep Bs Antigen Hep Bs Antibody Hep B Core Total Ab Hepatitis C Antibody SARS-CoV-2 (PCR) Detected A (NOT DETECT) 11/12/21 17:43 WBC RBC Hgb Hct MCV MCH MCHC RDW Plt Count MPV Neut % (Auto) Lymph % (Auto) [place] % (Auto) Eos % (Auto) Baso % (Auto) Neut # (Auto) Lymph # (Auto) [place] # (Auto) Eos # (Auto) Baso # (Auto) Nucleated RBC % (auto) Nucleated RBCs # D-Dimer Sodium Potassium Chloride Carbon Dioxide Anion Gap BUN Creatinine GFR Calculation Glucose Calculated Osmolality Calcium Total Bilirubin AST ALT Alkaline Phosphatase Troponin T Baseline Troponin T 120 Minute 62.65 ng/L H ng/L (0-10) Delta Troponin T -9.35 ABS# L ABS# (0-10) NT-Pro-B Natriuret Pep Total Protein Albumin Globulin Lipase Urine Color Urine Appearance Urine pH Ur Specific [place] Urine Protein Urine Glucose (UA) Urine Ketones Urine Blood Urine Nitrate Urine Bilirubin Urine Urobilinogen Ur Leukocyte Esterase Urine RBC Urine WBC Ur Squamous Epith Cells Ur Transition Epith Cell Amorphous Sediment Urine Bacteria Hyaline Casts Coarse Granular Casts Coronavirus 229E (PCR) Hepatitis A IgM Ab Hep Bs Antigen Hep Bs Antibody Hep B Core Total Ab Hepatitis C Antibody SARS-CoV-2 (PCR) Discharge Plan Discharge Patient Disposition: Admitted As Inpatient Admit Provider: Eric Luciano Clinical Impression: COVID-19, Respiratory failure with hypoxia, Vomiting, Elevated liver enzymes Condition: Stable Discharge Diet: Advance as tolerated Discharge Activity: Resume usual activity Coding Level of Care Code ED Histology Technologist for g Fwd Exam Comprehensive Documented by User: Merlyn Lozano MD 11/12/21 21:05 HPI - General Adult General: Chief complaint: ER Hold Stated complaint: weakness Time Seen by Provider: 11/12/21 14:40 PFSH ED PFSH: Medical History (Updated 11/19/21 @ 00:00 by ) Atrial dysrhythmia Atrial fibrillation Atrial flutter CHF (congestive heart failure) 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, managed as type 2 Diastolic heart failure Drug-induced bradycardia Digoxin was discontinued along beta-alexandrea Generalized epilepsy Heart failure Hypertension Hypothyroidism -on levothyroxine Non-insulin dependent diabetes mellitus -A1c (12/2019): 8.3 -Accucheks, ISS, hypoglycemia precautions -consistent carb diet as tolerated -takes metformin at home, can resume on d/c Obstructive sleep apnea Paroxysmal A-fib Seizure Severe obstructive sleep apnea Sleep apnea Sleep apnea in adult Stroke due to embolism of left middle cerebral artery -prior hx of L MCA CVA in 05/2019; did not receive tPA -has been f/u with Dr. 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 Surgical History (Updated 11/19/21 @ 00:00 by ) No pertinent past surgical history Status post cardiac pacemaker procedure Family History Sister Diabetes Father Heart disease Mother Heart disease Social History Smoking and tobacco status: former smoker Alcohol intake: never History of recent travel: No Course Vital Signs: Vital signs: Vital Signs Temperature 98.1 F 11/18/21 08:00 Pulse Rate 76 11/18/21 13:05 Respiratory Rate 17 11/18/21 13:05 Blood Pressure 110/72 11/18/21 08:00 Pulse Oximetry 94 11/18/21 13:05 MDM - General Adult MDM Narrative Medical decision making narrative: I took patient over from Dr. Becerra. She does have COVID CT here is consistent with COVID she is currently on 2 to 3 L she uses oxygen as needed at home. She also has been having vomiting along with weakness does have elevated liver enzymes here to do a CT abdomen showed no acute abnormalities no signs of common bile duct dilatation her bilirubin here is normal elevated liver enzymes could be reactive will admit patient for IV fluids and further treatment. Lab Data Result diagrams: 11/18/21 05:39 11/18/21 05:39 Labs: Lab Results 3 11/12/21 11/12/21 11/12/21 14:45 14:45 14:45 WBC 8.9 10^3/uL 10^3/uL (4.0-10.0) RBC 5.14 10^6/uL 10^6/uL (4.1-5.3) Hgb 15.7 g/dL H g/dL (11.5-15.3) Hct 48.5 % H % (37.0-47.0) MCV 94.4 fl fl (81-99) MCH 30.5 pg pg (28.0-34.0) MCHC 32.4 g/dL g/dL (30.0-36.0) RDW 13.6 % % (12.1-15.1) Plt Count 148 10^3/cmm 10^3/cmm (130-400) MPV 11.7 fL H fL (7.4-10.4) Neut % (Auto) 81.3 % % Lymph % (Auto) 11.3 % % [place] % (Auto) 6.5 % % Eos % (Auto) 0.0 % % Baso % (Auto) 0.2 % % Neut # (Auto) 7.27 10^3/uL 10^3/uL (1.8-7.7) Lymph # (Auto) 1.0 10^3/uL 10^3/uL (0.8-4.8) [place] # (Auto) 0.6 10^3/uL 10^3/uL (0.2-0.9) Eos # (Auto) 0.0 10^3/uL 10^3/uL (0.0-0.8) Baso # (Auto) 0.0 10^3/uL 10^3/uL (0.0-0.1) Nucleated RBC % (auto) 0 % % Nucleated RBCs # 0.0 /100WBC /100WBC D-Dimer Sodium 136 mmol/L mmol/L (136-145) Potassium 3.2 mmol/L L mmol/L (3.5-5.1) Chloride 97 mmol/L L mmol/L (98-107) Carbon Dioxide 21 mmol/L L mmol/L (22-29) Anion Gap 21.2 H (5-19) BUN 21 mg/dL mg/dL (8-23) Creatinine 1.0 mg/dL H mg/dL (0.5-0.9) GFR Calculation Not Reportable Glucose 113 mg/dL mg/dL (65-115) Calculated Osmolality 286 mOsm/kg mOsm/kg (285-295) Calcium 9.5 mg/dL mg/dL (8.5-10.5) Total Bilirubin 0.5 mg/dL mg/dL (0.15-1.2) AST 1312 U/L H U/L (0-32) ALT 1571 U/L H U/L (0-33) Alkaline Phosphatase 122 IU/L H IU/L (35-105) Troponin T Baseline 72 ng/L H ng/L (0-10) Troponin T 120 Minute Delta Troponin T NT-Pro-B Natriuret Pep Total Protein 6.7 g/dL g/dL (6.6-8.7) Albumin 3.4 g/dL L g/dL (3.5-5.2) Globulin 3.3 g/dL g/dL (1.3-4.6) Lipase Urine Color Urine Appearance Urine pH Ur Specific [place] Urine Protein Urine Glucose (UA) Urine Ketones Urine Blood Urine Nitrate Urine Bilirubin Urine Urobilinogen Ur Leukocyte Esterase Urine RBC Urine WBC Ur Squamous Epith Cells Ur Transition Epith Cell Amorphous Sediment Urine Bacteria Hyaline Casts Coarse Granular Casts Coronavirus 229E (PCR) Hepatitis A IgM Ab Hep Bs Antigen Hep Bs Antibody Hep B Core Total Ab Hepatitis C Antibody SARS-CoV-2 (PCR) 11/12/21 11/12/21 11/12/21 14:45 14:45 14:45 WBC RBC Hgb Hct MCV MCH MCHC RDW Plt Count MPV Neut % (Auto) Lymph % (Auto) [place] % (Auto) Eos % (Auto) Baso % (Auto) Neut # (Auto) Lymph # (Auto) [place] # (Auto) Eos # (Auto) Baso # (Auto) Nucleated RBC % (auto) Nucleated RBCs # D-Dimer 2.03 ug/mIFEU H ug/mIFEU (0-0.59) Sodium Potassium Chloride Carbon Dioxide Anion Gap BUN Creatinine GFR Calculation Glucose Calculated Osmolality Calcium Total Bilirubin AST ALT Alkaline Phosphatase Troponin T Baseline Troponin T 120 Minute Delta Troponin T NT-Pro-B Natriuret Pep 7014 pg/mL H pg/mL (0-125) Total Protein Albumin Globulin Lipase Urine Color Urine Appearance Urine pH Ur Specific [place] Urine Protein Urine Glucose (UA) Urine Ketones Urine Blood Urine Nitrate Urine Bilirubin Urine Urobilinogen Ur Leukocyte Esterase Urine RBC Urine WBC Ur Squamous Epith Cells Ur Transition Epith Cell Amorphous Sediment Urine Bacteria Hyaline Casts Coarse Granular Casts Coronavirus 229E (PCR) Hepatitis A IgM Ab Non-reactive (Nonreactive) Hep Bs Antigen Non-reactive (Nonreactive) Hep Bs Antibody 3.5 L (11.5-1000) Hep B Core Total Ab Non-reactive (Nonreactive) Hepatitis C Antibody Non-reactive (Nonreactive) SARS-CoV-2 (PCR) 11/12/21 11/12/21 11/12/21 14:45 15:38 16:15 WBC RBC Hgb Hct MCV MCH MCHC RDW Plt Count MPV Neut % (Auto) Lymph % (Auto) [place] % (Auto) Eos % (Auto) Baso % (Auto) Neut # (Auto) Lymph # (Auto) [place] # (Auto) Eos # (Auto) Baso # (Auto) Nucleated RBC % (auto) Nucleated RBCs # D-Dimer Sodium Potassium Chloride Carbon Dioxide Anion Gap BUN Creatinine GFR Calculation Glucose Calculated Osmolality Calcium Total Bilirubin AST ALT Alkaline Phosphatase Troponin T Baseline Troponin T 120 Minute Delta Troponin T NT-Pro-B Natriuret Pep Total Protein Albumin Globulin Lipase 58 U/L U/L (13-60) Urine Color Yellow (Yellow) Urine Appearance Hazy A (CLEAR) Urine pH 5 (5-7) Ur Specific [place] 1.025 (1.005-1.030) Urine Protein 1+ H (Negative) Urine Glucose (UA) 4+ H (Normal) Urine Ketones 1+ H (Negative) Urine Blood 2+ H (Negative) Urine Nitrate Negative (Negative) Urine Bilirubin 1+ H (Negative) Urine Urobilinogen 4 mg/dL H mg/dL (Negative) Ur Leukocyte Esterase Negative (Negative) Urine RBC 5-10 /hpf H /hpf (0-2) Urine WBC 5-10 /hpf H /hpf (0-5) Ur Squamous Epith Cells None /hpf /hpf (0-5) Ur Transition Epith Cell None /hpf /hpf Amorphous Sediment Not Reportable Urine Bacteria 2+ /hpf H /hpf (NONE) Hyaline Casts 10-15 /lpf H /lpf Coarse Granular Casts 0-4 /lpf H /lpf Coronavirus 229E (PCR) Not detected (NOT DETECT) Hepatitis A IgM Ab Hep Bs Antigen Hep Bs Antibody Hep B Core Total Ab Hepatitis C Antibody SARS-CoV-2 (PCR) Detected A (NOT DETECT) 11/12/21 17:43 WBC RBC Hgb Hct MCV MCH MCHC RDW Plt Count MPV Neut % (Auto) Lymph % (Auto) [place] % (Auto) Eos % (Auto) Baso % (Auto) Neut # (Auto) Lymph # (Auto) [place] # (Auto) Eos # (Auto) Baso # (Auto) Nucleated RBC % (auto) Nucleated RBCs # D-Dimer Sodium Potassium Chloride Carbon Dioxide Anion Gap BUN Creatinine GFR Calculation Glucose Calculated Osmolality Calcium Total Bilirubin AST ALT Alkaline Phosphatase Troponin T Baseline Troponin T 120 Minute 62.65 ng/L H ng/L (0-10) Delta Troponin T -9.35 ABS# L ABS# (0-10) NT-Pro-B Natriuret Pep Total Protein Albumin Globulin Lipase Urine Color Urine Appearance Urine pH Ur Specific [place] Urine Protein Urine Glucose (UA) Urine Ketones Urine Blood Urine Nitrate Urine Bilirubin Urine Urobilinogen Ur Leukocyte Esterase Urine RBC Urine WBC Ur Squamous Epith Cells Ur Transition Epith Cell Amorphous Sediment Urine Bacteria Hyaline Casts Coarse Granular Casts Coronavirus 229E (PCR) Hepatitis A IgM Ab Hep Bs Antigen Hep Bs Antibody Hep B Core Total Ab Hepatitis C Antibody SARS-CoV-2 (PCR) Discharge Plan Discharge Patient Disposition: Admitted As Inpatient Admit Provider: Eric Luciano Clinical Impression: COVID-19, Respiratory failure with hypoxia, Vomiting, Elevated liver enzymes Condition: Stable Discharge Diet: Advance as tolerated Discharge Activity: Resume usual activity Coding Level of Care Code ED Histology Technologist for Morgan Fwd Exam Comprehensive
[2021-11-12 15:41] LABS: Troponin(5th) Baseline 72 ng/L (0-10)
[2021-11-12 15:43] LABS: Albumin Level 3.4 g/dL (3.5-5.2); Alkaline Phosphatase 122 IU/L (35-105); Anion Gap 21.2 (5-19); Blood Urea Nitrogen 21 mg/dL (8-23); Calcium 9.5 mg/dL (8.5-10.5); Carbon Dioxide 21 mmol/L (22-29); Chloride 97 mmol/L (98-107); Globulin 3.3 g/dL (1.3-4.6); Glucose 113 mg/dL (65-115); Osmolality Calculated 286 mOsm/kg (285-295); Potassium 3.2 mmol/L (3.5-5.1); Sodium 136 mmol/L (136-145); Total Bilirubin 0.5 mg/dL (0.15-1.2); Total Protein 6.7 g/dL (6.6-8.7)
[2021-11-12 15:55] LABS: Alanine Aminotransferase 1571 U/L (0-33)
[2021-11-12 15:56] LABS: Aspartate Amino Transferase 1312 U/L (0-32)
[2021-11-12 16:05] LABS: D Dimer 2.03 ug/mIFEU (0-0.59)
[2021-11-12 16:27] LABS: NT Pro B Type Natriuretic Pept 7014 pg/mL (0-125)
--- NOTE | 2021-11-12 16:28 | ECG_ITS ---
[facility] Test Date: 2021-11-12 Pat Name: Gianluca Goode Department: Room: Gender: Female Dukey Rider: : 1945 Requested By: Joe Estes Order Number: [id number] Jake MD: Saima Guzman M.D. Measurements Intervals [place] Rate: 75 P: 88 [place]: 162 QRS: 21 QRSD: 99 T: -7 QT: 399 QTc: 448 Interpretive Statements SINUS RHYTHM SEPTAL MYOCARDIAL INFARCTION , OF INDETERMINATE AGE [40+ ms Q WAVE IN V1/V2] ST DEPRESSION, CONSIDER SUBENDOCARDIAL INJURY [0.1+ mV ST DEPRESSION] Compared to ECG 11/12/2021 18:19:59 Ectopic atrial rhythm no longer present Left ventricular hypertrophy no longer present Myocardial infarct finding still present ST (T wave) deviation still present Electronically Signed On 11-13-2021 19:22:25 RESEARCH ASSISTANT by Saima Guzman M.D. [id number]
--- NOTE | 2021-11-12 16:39 | CTR_ITS ---
PROCEDURE INFORMATION: Exam: CTA Chest With Contrast Exam date and time: 11/12/2021 4:39 PM Age: 75 years old Clinical indication: Shortness of breath and other: Weakness; Prior surgery; Surgery type: Pacemaker; Additional info: Elevated d dimer TECHNIQUE: Imaging protocol: Computed tomographic angiography of the chest with contrast. 3D rendering (Not supervised by radiologist): MIP and/or 3D reconstructed images were created by the technologist. Radiation optimization: All CT scans at this facility use at least one of these dose optimization techniques: automated exposure control; mA and/or kV adjustment per patient size (includes targeted exams where dose is matched to clinical indication); or iterative reconstruction. Contrast material: VISI 320; Contrast volume: 64 ml; Contrast route: INTRAVENOUS (IV); COMPARISON: CT angio chest PE protcl [id number] 03/20/2020 9:04 PM RADIATION DOSE METRICS: Total DLP (mGy-cm): 549.23 FINDINGS: Pulmonary arteries: There is no evidence of filling defects within the pulmonary arterial circulation to suggest pulmonary embolism. Aorta: There is atherosclerotic calcification in the aortic arch and descending thoracic aorta. There is no thoracic aortic aneurysm or dissection. Lungs: There is some patchy ground-glass opacities in both lungs mostly rounded or peripheral and also some bandlike areas of peripheral opacity. Findings may represent some pneumonia or pulmonary infectious disease in her fairly typical for COVID-19 infection. There are calcified granulomas in both lungs. Pleural spaces: Unremarkable. No pneumothorax. No pleural effusion. Heart: The heart is mildly enlarged. Heart is smaller than on the previous examination. There is moderate atherosclerotic calcification of the coronary arteries. Lymph nodes: There are mildly prominent prevascular and paratracheal lymph nodes but smaller than on the previous examination. No adenopathy is identified. Bones/joints: Unremarkable. No acute fracture. Soft tissues: Unremarkable. CT/CT angio chest PE protcl [id number] IMPRESSION: 1. Commonly reported imaging features of COVID-19 pneumonia are present. Other processes such as influenza pneumonia and organizing pneumonia, as can be seen with drug toxicity and connective tissue disease, can cause a similar imaging pattern. 2. There is no evidence of pulmonary embolism. 3. Adenopathy improved compared with 03/20/2020. 4. Cardiomegaly improved compared with 03/20/2020.
[2021-11-12] MEDS: iodixanol 320 mg/mL 100mL Btl IV ×2 (17:06→19:18)
[2021-11-12 17:31] LABS: Add Urine Microscopic? YES; Bilirubin Urine 1+ (Negative); Blood Urine 2+ (Negative); Glucose Urine UA 4+ (Normal); Ketones Urine 1+ (Negative); Leukocyte Esterase Urine Negative (Negative); Nitrate Urine Negative (Negative); Protein Urine 1+ (Negative); Specific Gravity, Urine 1.025 (1.005-1.030); Urine Appearance Hazy (CLEAR); Urine Color Yellow (Yellow); Urobilinogen Urine 4 mg/dL (Negative); pH Urine 5 (5-7)
[2021-11-12 17:32] LABS: Bacteria Urine 2+ /hpf; Coarse Granular Casts Urine 0-4 /lpf
[2021-11-12 17:33] LABS: Add Urine Culture? Yes
[2021-11-12] MEDS: dexamethasone 10 mg/mL INJ 6 MG IVP (17:48)
[2021-11-12 17:53] LABS: Adenovirus Not Detected (NOT DETECT); Chlamydia Pneumoniae Not Detected (NOT DETECT); Coronavirus 229E,HKU1,NL63,OC4 Not Detected (NOT DETECT); Human Metapneumovirus Not Detected (NOT DETECT); Human Rhinovirus/Enterovirus Not Detected (NOT DETECT); Influenza A Not Detected (NOT DETECT); Influenza A H1 Not Detected (NOT DETECT); Influenza A H1-2009 Not Detected (NOT DETECT); Influenza A H3 Not Detected (NOT DETECT); Influenza B Not Detected (NOT DETECT); Mycoplasma Pneumoniae Not Detected (NOT DETECT); Parainfluenza Virus Type 1 Not Detected (NOT DETECT); Parainfluenza Virus Type 2 Not Detected (NOT DETECT); Parainfluenza Virus Type 3 Not Detected (NOT DETECT); Parainfluenza Virus Type 4 Not Detected (NOT DETECT); Respiratory Syncytial Virus A Not Detected (NOT DETECT); Respiratory Syncytial Virus B Not Detected (NOT DETECT); SARS-COV-2 Detected (NOT DETECT)
[2021-11-12 18:14] LABS: Troponin 5 2HR 62.65 ng/L (0-10)
[2021-11-12 18:15] LABS: Troponin 5 2HR Delta -9.35 ABS# (0-10)
--- NOTE | 2021-11-12 18:49 | CTR_ITS ---
PROCEDURE INFORMATION: Exam: CT Abdomen And Pelvis With Contrast Exam date and time: 11/12/2021 6:49 PM Age: 75 years old Clinical indication: Abdominal pain; Generalized; Prior surgery; Surgery type: Pacemaker, lap; Additional info: Abd pain TECHNIQUE: Imaging protocol: Computed tomography of the abdomen and pelvis with contrast. Radiation optimization: All CT scans at this facility use at least one of these dose optimization techniques: automated exposure control; mA and/or kV adjustment per patient size (includes targeted exams where dose is matched to clinical indication); or iterative reconstruction. Contrast material: VISI 320; Contrast volume: 95 ml; Contrast route: INTRAVENOUS (IV); COMPARISON: CR XR abdomen 1V* [id number] 10/03/2019 5:13 AM RADIATION DOSE METRICS: Total DLP (mGy-cm): 1698.46 FINDINGS: Lungs: There are some ground-glass opacities in the lung bases worrisome for COVID-19 infection. Please see previously reported CT scan of the chest. Liver: There is no focal abnormality within the liver. Gallbladder and bile ducts: The gallbladder is normal. Pancreas: The pancreas is normal. Spleen: The spleen is normal. Adrenal glands: The adrenal glands are normal. Kidneys and ureters: 1.8 cm sized simple cyst mid right kidney. Tiny cortical cyst lower pole left kidney too small to definitively characterize by CT scanning. There is no evidence of hydronephrosis. Stomach and bowel: There is no evidence of colitis/diverticulitis. There is no evidence of intestinal obstruction. Appendix: Not identified Intraperitoneal space: There is no evidence of free intraperitoneal fluid. Vasculature: The aorta demonstrates moderate atherosclerotic calcification. There is no evidence of an abdominal aortic aneurysm. Lymph nodes: There is no evidence of lymphadenopathy. Urinary bladder: Unremarkable as visualized. Reproductive: Unremarkable as visualized. Bones/joints: The lumbar spine demonstrates mild degenerative changes at multiple levels. Soft tissues: Unremarkable. CT/CT abdomen pelvis w con* [id number] IMPRESSION: 1. Commonly reported imaging features of COVID-19 pneumonia are present. Other processes such as influenza pneumonia and organizing pneumonia, as can be seen with drug toxicity and connective tissue disease, can cause a similar imaging pattern. 2. No acute findings in the abdomen. COMMENTS: Consistent with the [employer]'s Incidental Findings Committee white paper (J Am Rosana Radiol 2018): Any incidental renal lesion less than 1 cm or classified as too small to characterize, or any incidental cystic renal lesion characterized as simple-appearing, is likely benign. No follow-up imaging is recommended for these lesions per consensus recommendations based on imaging criteria.
[2021-11-12 19:41] LABS: Lipase 58 U/L (13-60)
[2021-11-12 20:04] LABS: Hepatitis A Antibody IgM Non-Reactive (Nonreactive); Hepatitis B Core AB, Total Non-Reactive (Nonreactive); Hepatitis B Surface AB 3.5 (11.5-1000); Hepatitis B Surface Antigen Non-Reactive (Nonreactive); Hepatitis C Virus Antibody Non-Reactive (Nonreactive)
--- NOTE | 2021-11-12 20:28 | ECG_ITS ---
[facility] Test Date: 2021-11-12 Pat Name: Gianluca Goode Department: Room: Gender: Female Relay Repairer: : 1945 Requested By: Joe Estes Order Number: [id number] Jake MD: Saima Guzman M.D. Measurements Intervals [place] Rate: 76 P: 226 HI: 168 QRS: -66 QRSD: 98 T: -63 QT: 394 QTc: 445 Interpretive Statements ECTOPIC ATRIAL RHYTHM LEFT VENTRICULAR HYPERTROPHY AND ST-T CHANGE POSSIBLE SEPTAL MYOCARDIAL INFARCTION , OF INDETERMINATE AGE INFERIOR MYOCARDIAL INFARCTION , PROBABLY RECENT Compared to ECG 11/12/2021 15:24:05 Ectopic atrial rhythm now present Sinus rhythm no longer present ST (T wave) deviation still present Myocardial infarct finding still present Electronically Signed On 11-14-2021 9:31:34 WAREHOUSE ADMINISTRATIVE ASSISTANT by Saima Guzman M.D. [id number]
[2021-11-12 20:54] LABS: Troponin 5 6HR 52.51 ng/L (0-10)
--- NOTE | 2021-11-12 21:47 | P.HP_ITS ---
Providers/Chief Complaint Admitting Physician: Eric Luciano MD Primary Care Provider: STEFANI Villaseñor Chief Complaint: weakness History of Present Illness Gianluca Goode is a 75 year old female past medical history of hypertension, diabetes, atrial fibrillation, tachybradycardia syndrome status post pacemaker placement, HFpEF, SWETHA, CVA, vaccinated for COVID-19 ,came in with chief complaint of Generalized weakness, generalized body pain, cough, nausea, recurrent vomiting, abdominal pain, going on for the last 10 days, which has progressively worsened in the last 2 days. She denies any fever, headache, chest pain, urinary complaints. Upon arrival in the ER: She was worked up for above-mentioned complaint. Pertinent imaging studies: X-ray chest:Groundglass infiltrates in the mid and lower right lung as well as the mid left lung suspicious for pneumonia. CTA chest: There is some patchy ground-glass opacities in both lungs mostly rounded or peripheral and also some bandlike areas of peripheral opacity. CT abdomen pelvis w con: No acute findings in the abdomen EKG: Ectopic atrial rhythm Pertinent labs: WBC 8.9 H&H 15.7 / 48.5 PLT : 148 , serum sodium 136 and potassium 3.2 BUN / serum creatinine : 21/1.0 , AST:1312, ALT :1571 , ALP : 122 , total bilirubin 0.5, lipase 58, hepatitis A: Negative, hep B core antibody: Negative, hep C core antibody: Negative. Troponin trended without significant delta, proBNP:7014 , Covid 19 PCR positive Review of Systems Const: Denies: fever(s), chills, body aches or diaphoresis Card: Denies: palpitations, edema, swelling of feet/ankles or leg pain with exertion Resp: Denies: wheezing or pain on inspiration GI: Denies: diarrhea or constipation : Denies: flank pain Musc: Denies: back pain, extremity pain or extremity swelling Neuro: Denies: headache(s), difficulty walking or confusion Medications/Allergies Home Medications Medication Instructions Recorded Confirmed Last Taken Type BIPAP MACHINE #1 ea 12/05/19 08/19/21 Unknown Rx BIPAP MASK #1 each 12/05/19 08/19/21 Unknown Rx BIPAP SUPPLIES #1 ea 12/05/19 08/19/21 Unknown Rx albuterol sulfate 90 mcg/actuation 2 puff INHALATION Q4H PRN 12/08/19 08/19/21 U nknown History aerosol inhaler aspirin 81 mg tablet,delayed 81 mg PO DAILY@0800 12/08/19 08/19/21 03/04/21 History release biotin 5 mg capsule 5 mg PO DAILY@0800 12/08/19 08/19/21 03/04/21 History blood-glucose meter #1 each 05/23/20 08/19/21 Unknown Rx 1 tab PO DAILY@0800 03/05/21 08/19/21 03/04/21 History midazolam 5 mg/spray (0.1 mL) 1 spray INTRANASAL ONCE #1 ea 04/14/21 08/19/21 Unknown Rx nasal spray amiodarone 200 mg tablet 200 mg PO DAILY@0800 #90 tab 04/15/21 08/19/21 Unknown Rx blood sugar diagnostic #50 each 04/15/21 08/19/21 Unknown Rx empagliflozin 25 mg tablet See Rx Instructions .ROUTE 04/15/21 08/19/21 Unknown Rx .COMPLEX #90 tablet levothyroxine 150 mcg tablet See Rx Instructions .ROUTE 04/15/21 08/19/21 Unknown Rx .COMPLEX #90 tablet lisinopril 20 mg tablet See Rx Instructions .ROUTE 04/15/21 08/19/21 Unknown Rx .COMPLEX #90 tab rivaroxaban 20 mg tablet See Rx Instructions .ROUTE 04/15/21 08/19/21 Unknown Rx .COMPLEX #90 tablet metoprolol tartrate 50 mg tablet 50 mg PO BID@0800,1999 Days 07/14/21 08/19/21 Unknown Rx #180 tab levetiracetam 750 mg See Rx Instructions .ROUTE 08/19/21 08/19/21 Unknown Rx tablet,extended release 24 hr .COMPLEX #90 tab venlafaxine 150 mg 150 mg PO DAILY #30 cap 08/19/21 08/19/21 Unknown Rx capsule,extended release 24 hr zonisamide 100 mg capsule See Rx Instructions .ROUTE 08/19/21 08/19/21 Unknown Rx .COMPLEX #360 cap diltiazem HCl 180 mg See Rx Instructions .ROUTE 10/10/21 Unknown Rx capsule,extended release 24 hr .COMPLEX #90 cap metformin 500 mg tablet,extended See Rx Instructions .ROUTE 10/10/21 Unknown Rx release 24 hr .COMPLEX #180 tab atorvastatin 20 mg tablet See Rx Instructions .ROUTE 10/30/21 Unknown Rx .COMPLEX #90 tab bumetanide 1 mg tablet See Rx Instructions .ROUTE 10/30/21 Unknown Rx .COMPLEX #90 tab glimepiride 4 mg tablet See Rx Instructions .ROUTE 10/30/21 Unknown Rx .COMPLEX #90 tab pantoprazole 40 mg tablet,delayed See Rx Instructions .ROUTE 10/30/21 Unknown Rx release .COMPLEX #90 tab Allergies Allergy/AdvReac Type Severity Reaction Status Date / Time tetanus and diphtheria Allergy Unknown Verified 08/19/21 11:08 toxoids penicillin G procaine AdvReac unknown Verified 08/19/21 11:08 PFSH Acute PFSH: Medical History (Updated 11/12/21 @ 21:52 by Eric Luciano MD) Atrial dysrhythmia Atrial fibrillation Atrial flutter 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 Randall -attributed to atrial fibrillation -on ASA, statin, AC with Eliquis -has residual cognitive impairment Type 2 diabetes mellitus Surgical History No pertinent past surgical history Family History Sister Diabetes Father Heart disease Mother Heart disease Social History Smoking and tobacco status: former smoker Alcohol intake: never History of recent travel: No Vitals/I&O/Wt Last Vital Signs Temp 98.2 F 11/12/21 14:28 Pulse 78 11/12/21 19:00 Resp 21 H 11/12/21 19:00 BP 162/84 11/12/21 19:00 Pulse Ox 96 11/12/21 19:00 Weight last 48 hrs Weight 86.183 kg Physical Exam Const: COMMON NORMALS: patient oriented x3 HENMT: COMMON NORMALS: normocephalic and atraumatic HEAD & SCALP: normocephalic and atraumatic Resp: COMMON NORMALS: clear to auscultation bilaterally EFFORT & INSPECTION: Yes symmetric chest movement AUSCULTATION: clear to auscultation bilaterally Cardio: OTHER: Irregularly irregular rhythm, S1-S2 variable intensity GI: COMMON NORMALS: Normal to inspection, nondistended, normoactive bowel sounds present, Soft to palpation, non-tender, No hepatosplenomegaly present and no masses AUSCULTATION: Yes normoactive bowel sounds PALPATION: Yes Soft to palpation and Yes No hepatosplenomegaly present RECTAL EXAM: deferred Extremity: COMMON NORMALS: no clubbing, cyanosis or edema and no pedal edema Neuro: COMMON NORMALS: patient oriented x3 Data : 11/12/21 14:45 11/12/21 14:45 A&P Assessment and plan (1) Pneumonia due to COVID-19 virus: Status: Acute (2) Transaminitis: Status: Acute (3) Hypothyroidism: Status: Acute Qualifiers: Hypothyroidism type: unspecified Qualified Code(s): E03.9 - Hypothyroidism, unspecified (4) Hypertension: Status: Acute Qualifiers: Hypertension type: essential hypertension Qualified Code(s): I10 - Es sential (primary) hypertension (5) Atrial fibrillation: Status: Acute Qualifiers: Atrial fibrillation type: paroxysmal Qualified Code(s): I48.0 - Paroxysmal atrial fibrillation (6) Obstructive sleep apnea: Status: Acute (7) Status post cardiac pacemaker procedure: Status: Acute (8) Type 2 diabetes mellitus: Status: Acute Qualifiers: Diabetes mellitus complication status: with hyperglycemia Diabetes mellitus manager intermediate insulin use: without half-way use Qualified Code(s): E11.65 - Type 2 diabetes mellitus with hyperglycemia (9) Tachy-martin syndrome: Status: Acute (10) CHF (congestive heart failure): Status: Acute Qualifiers: Heart failure chronicity: chronic Heart failure type: diastolic Qualified Code(s): I50.32 - Chronic diastolic (congestive) heart failure (11) Seizure: Status: Acute (12) Vomiting: Status: Acute (13) Stroke due to embolism of left middle cerebral artery: Status: Acute Additional A&P Information 75 year old female past medical history of hypertension, diabetes, atrial fibrillation, tachybradycardia syndrome status post pacemaker placement, HFpEF, SWETHA, CVA, vaccinated for COVID-19 ,came in with chief complaint of Generalized weakness, generalized body pain, cough, nausea, recurrent vomiting, abdominal pain, going on for the last 10 days, which has progressively worsened in the last 2 days. #COVID-19 pneumonia: Patient came in with chief complaint of cough, shortness of breath, generalized weakness, fatigue, malaise. Currently requiring 3 Ls fajardo pplemental oxygen, she requires 2 L oxygen at home as needed. X-ray chest, CTA chest:In line with pneumonia. Currently on COVID protocol. Follow(inflammatory markers , D-dimer ESR CRP LDH ferritin ) Follow blood culture, sputum culture urine culture On remdesivir for 5 days Dexamethasone 6 mg IV daily DuoNebs Supplemental oxygen as needed Incentive spirometer and flutter valve #Transaminitis: Likely secondary to COVID infection: Cannot conclusively rule out medication side effect. Hepatitis panel is negative. Follow ultrasound abdomen Monitor CMP #History of A. fib: Along with tachybradycardia syndrome status post pacemaker placement: Currently rate is well controlled: Continue Cardizem p.o., on Xarelto for anticoagulation. Currently on hold. #Hypothyroidism: Continue home levothyroxine #Diabetes: Continue sliding scale insulin, carb consistent diet, monitor fingerstick glucose #Hypertension: #HFpEF : Currently compensated We will hold Bumex for now Monitor intake output Monitor daily K>4 , MG>2 #History of seizure: Continue Keppra 500 mg IV twice daily #History of CVA: #CODE STATUS: Full code #DVT prophylaxis: Not needed on Xarelto Attestations Medical Necessity Statement*: Patient needs to be in hospital for management of COVID pneumonia, anticipated length of stay greater than 2 midnights. Time Spent in Patient Care: Greater than 35 minutes (>than 50% of time spent in counselling and/or direct pt care on unit) . Coding Level of Care Code Acute Stores Despatch Hand for [facility] Fwd Exam Detailed Diagnoses Pneumonia due to COVID-19 virus U07.1; J12.82 Transaminitis R74.01 Hypothyroidism E03.9 Hypothyroidism type: unspecified Hypertension I10 Hypertension type: essential hypertension Atrial fibrillation I48.0 Atrial fibrillation type: paroxysmal Obstructive sleep apnea G47.33 Status post cardiac pacemaker procedure Z95.0 Type 2 diabetes mellitus E11.65 Diabetes mellitus complication status: with hyperglycemia Diabetes mellitus manager intermediate insulin use: without half-way use Tachy-martin syndrome I49.5 CHF (congestive heart failure) I50.32 Heart failure chronicity: chronic Heart failure type: diastolic Seizure R56.9 Vomiting R11.10 Stroke due to embolism of left middle cerebral artery I63.412
[2021-11-13] VITALS (9 sets, daily range): BP systolic 111–129; BP diastolic 63–107; PULSE 82–136; RESP 16–28; TEMP 36.9–37.1; O2SAT 90–94; BMI 30.7
[2021-11-13] MEDS: remdesivir 200 MG in sodium chloride 0.9% (100 ml) 100 ML 100 MG IV (05:14)
[2021-11-13 05:23] LABS: Basophils % 0.1 %; Hematocrit 47.2 % (37.0-47.0); Hemoglobin 15.3 g/dL (11.5-15.3); Lymphocytes # 0.7 10^3/uL (0.8-4.8); Lymphocytes % 8.4 %; Mean Corpuscular HGB Conc 32.4 g/dL (30.0-36.0); Mean Corpuscular Hemoglobin 30.5 pg (28.0-34.0); Mean Platelet Volume 12.3 fL (7.4-10.4); Monocytes # 0.5 10^3/uL (0.2-0.9); Monocytes % 6.3 %; Neutrophils # 7.01 10^3/uL (1.8-7.7); Neutrophils % 84.6 %; Nucleated Red Blood Cells % 0 %; Platelet Count 154 10^3/cmm (130-400); Red Blood Count 5.02 10^6/uL (4.1-5.3); Red Cell Distribution Width 13.8 % (12.1-15.1); White Blood Count 8.3 10^3/uL (4.0-10.0)
[2021-11-13 05:40] LABS: Albumin Level 3.3 g/dL (3.5-5.2); Alkaline Phosphatase 112 IU/L (35-105); Anion Gap 22.6 (5-19); Blood Urea Nitrogen 31 mg/dL (8-23); Calcium 9.9 mg/dL (8.5-10.5); Carbon Dioxide 22 mmol/L (22-29); Chloride 97 mmol/L (98-107); Globulin 3.2 g/dL (1.3-4.6); Glucose 144 mg/dL (65-115); Magnesium 2.2 mg/dL (1.7-2.3); Osmolality Calculated 295 mOsm/kg (285-295); Potassium 3.6 mmol/L (3.5-5.1); Sodium 138 mmol/L (136-145); Total Bilirubin 0.4 mg/dL (0.15-1.2); Total Protein 6.5 g/dL (6.6-8.7)
[2021-11-13] MEDS: sodium chloride 0.9% 1,000 ML 999 ML IV (05:40)
[2021-11-13 05:52] LABS: Alanine Aminotransferase 1195 U/L (0-33); Aspartate Amino Transferase 832 U/L (0-32)
[2021-11-13 06:06] LABS: Creatine Phosphokinase 390 U/L (26-192)
[2021-11-13 06:35] LABS: CKMB 2.9 ng/mL (0-5.34)
--- NOTE | 2021-11-13 09:05 | PC.NURSE ---
k mellissa order given by dr schmitz to susannah malloy based on morning k labs
--- NOTE | 2021-11-13 09:30 | PC.PHAR ---
PT BROUGHT IN MEDICATION BOTTLES-PT UNABLE TO VERIFY WHAT MEDICATIONS SHE TAKES-PT STATES HER DAUGHTER [facility] HELPS HER WITH HER MEDS CALLED [facility] [phone] NO ANSWER-PTS ER NURSE RORO [place] STATES SHE TALKED TO THE PTS FAMILY LAST NIGHT AND STATES THEY SAID THEY DIDNT KNOW WHAT MEDS THE PT TOOK-
[2021-11-13] MEDS: levothyroxine 150 mcg Tablet PO (11:30)
[2021-11-13] MEDS: ascorbic acid 500 mg Tablet 1000 MG PO ×2 (11:36→18:35)
[2021-11-13] MEDS: pantoprazole DR 40 mg Tablet PO (11:36)
[2021-11-13] MEDS: aspirin 81 mg EC Tablet PO (11:36)
[2021-11-13] MEDS: dilTIAZem ER (24HR) 180 mg Capsule PO (11:37)
[2021-11-13] MEDS: amiodarone 200 mg Tablet PO (11:37)
[2021-11-13] MEDS: zinc gluconate 50 mg Tablet PO (11:37)
--- NOTE | 2021-11-13 16:03 | PC.NURSE ---
monitoring engineer placed on patient heart rate afib 120's-150's, Dr. Taylor notified.
[2021-11-13 16:18] LABS: Glucose Point of Care 128 mg/dL (70-110)
--- NOTE | 2021-11-13 16:24 | P.PN_ITS ---
Subjective Subjective: Interval history: She is feeling a little bit better. Reports that she had had a seizure episode earlier in the ER. Was started on seizure precautions. Vitals/I&O/Wt Last Vital Signs Temp 98.2 F 11/12/21 14:28 Pulse 82 11/13/21 14:38 Resp 20 H 11/13/21 14:38 BP 111/86 11/13/21 14:38 Pulse Ox 91 11/13/21 14:38 11/13/21 11/13/21 11/13/21 06:59 14:59 22:59 Intake Total 1315 / 1315 Balance 1315 / 1315 Weight last 48 hrs Weight 86.183 kg Weight 86.183 kg Physical Exam Const: COMMON NORMALS: no acute distress GENERAL APPEARANCE: cooperative ORIENTATION/CONSCIOUSNESS: Yes awake OTHER: Somewhat sluggish responses. HENMT: COMMON NORMALS: oropharynx normal Neck/C-Spine: COMMON NORMALS: no JVD Resp: COMMON NORMALS: normal respiratory effort and clear to auscultation bilaterally AUSCULTATION: clear to auscultation bilaterally Cardio: COMMON NORMALS: no JVD, regular rhythm, S1 normal heart sound present, S2 normal heart sound present and No murmurs present (Cardio) RHYTHM: regular rhythm HEART SOUNDS: S1 normal heart sound present and S2 normal heart sound present GI: COMMON NORMALS: Normal to inspection, nondistended, normoactive bowel sounds present, Soft to palpation and non-tender PALPATION: Yes Soft to palpation Extremity: COMMON NORMALS: no joint enlargement and no pedal edema Neuro: COMMON NORMALS: moves all extremities Skin: COMMON NORMALS: no rashes or lesions noted GENERAL SKIN EXAM: no rashes or lesions noted Data : 11/13/21 05:05 11/13/21 05:05 Micro: Microbiology 11/13/21 06:32 Blood Culture - Preliminary Blood SPECIMEN COLLECTED 11/13/21 06:25 Blood Culture - Preliminary Blood SPECIMEN COLLECTED A&P Assessment and plan (1) Pneumonia due to COVID-19 virus: Continue oxygen support, on 3 L nasal cannula. Saturations low 90s. Continue remdesivir, Decadron, supportive measures. Repeat D-dimer, CRP. Status: Acute (2) Transaminitis: Improving. Suspect secondary to COVID-19. Liver is normal size, mild coarse echotexture suggesting changes of cirrhosis or chronic hepatocellular disease. Normal hepatopetal pedal flow in portal vein with monophasic waveform. Gallbladder normally distended, small polyp versus adherent gallstone. CBD normal. Unremarkable hepatitis serologies. Status: Acute (3) Atrial fibrillation: A. fib with RVR, heart rates in 120s-130s noted this afternoon. Given 1 dose of 5 mg IV metoprolol. Continue on cardiac monitoring. Continue diltiazem, metoprolol p.o. Amiodarone. Xarelto. Status: Acute Qualifiers: Atrial fibrillation type: paroxysmal Qualified Code(s): I48.0 - Paroxysmal atrial fibrillation (4) Hypothyroidism: Status: Acute Qualifiers: Hypothyroidism type: unspecified Qualified Code(s): E03.9 - Hypothyroidism, unspecified (5) Hypertension: Status: Acute Qualifiers: Hypertension type: essential hypertension Qualified Code(s): I10 - Essential (primary) hypertension (6) Obstructive sleep apnea: Status: Acute (7) Status post cardiac pacemaker procedure: Status: Acute (8) Type 2 diabetes mellitus: Status: Acute Qualifiers: Diabetes mellitus senior care insulin use: without senior care use Diabetes mellitus complication status: with hyperglycemia Qualified Code(s): E11.65 - Type 2 diabetes mellitus with hyperglycemia (9) Tachy-martin syndrome: Status: Acute (10) CHF (congestive heart failure): Status: Acute Qualifiers: Heart failure type: diastolic Heart failure chronicity: chronic Qualified Code(s): I50.32 - Chronic diastolic (congestive) heart failure (11) Seizure: Reports seizure episode in ER, although RN in ER did not observe typical seizure. Continue zonisamide, Keppra. Status: Acute (12) Vomiting: Status: Acute (13) Stroke due to embolism of left middle cerebral artery: Status: Acute Additional A&P Information Rhabdomyolysis: Mild, Bumex held for now, follow-up CK. History of CVA Attestations Medical Necessity Statement*: Continue admission for assessment management of severe COVID-19 with hypoxia, A. fib with RVR. Coding Level of Care Code Acute Consulting Marine Engineer for [facility] Fwd Diagnoses Pneumonia due to COVID-19 virus U07.1; J12.82 Transaminitis R74.01 Atrial fibrillation I48.0 Atrial fibrillation type: paroxysmal Hypothyroidism E03.9 Hypothyroidism type: unspecified Hypertension I10 Hypertension type: essential hypertension Obstructive sleep apnea G47.33 Status post cardiac pacemaker procedure Z95.0 Type 2 diabetes mellitus E11.65 Diabetes mellitus exterminator termite insulin use: without exterminator termite use Diabetes mellitus complication status: with hyperglycemia 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
[2021-11-13] MEDS: metoprolol tartrate 1 mg/1 mL SDV 5 mL 5 MG IVP ×2 (16:27→18:33)
[2021-11-13 17:57] LABS: Glucose Point of Care 126 mg/dL (70-110)
[2021-11-13] MEDS: dexamethasone 4 mg/mL INJ 6 MG IVP (18:35)
[2021-11-13] MEDS: metoprolol tartrate 50 mg Tablet PO (20:52)
--- NOTE | 2021-11-13 21:46 | US_ITS ---
WS: [id number] RIGHT UPPER QUADRANT ULTRASOUND HISTORY: Transaminitis COMPARISON: CT 11/12/2021 Liver: 16.6 cm in length. Liver is normal size. There is mild coarse echotexture suggesting changes o f cirrhosis or chronic hepatocellular disease. No mass. Normal flow in the portal vein. Portal Vein: Normal hepatopetal flow with monophasic waveform. Gallbladder: Normally distended gallbladder. Nonmobile nonshadowing focus in the gallbladder may be a small polyp or adherent stone. No pericholecystic fluid. CBD: 0.6 cm Pancreas: Not visualized. Right kidney: 11.4 cm in length. Normal size kidney. There is a cyst in the mid kidney measuring 1.8 x 1.6 x 1.7 cm. No solid mass or obstruction. Aorta and IVC: Unremarkable abdominal aorta and IVC. No ascites. US/US abdomen limited [id number] IMPRESSION: 1. Small polyp versus adherent gallstone. No pericholecystic fluid or evidence for acute cholecystitis. 2. Pancreas not visualized. 3. Small simple cyst RIGHT kidney. 4. Normal size liver with parenchymal changes suggesting mild hepatocellular d isease/cirrhosis.
[2021-11-13 22:00] LABS: Glucose Point of Care 216 mg/dL (70-110)
[2021-11-14] VITALS (13 sets, daily range): BP systolic 92–130; BP diastolic 50–73; PULSE 68–101; RESP 16–19; TEMP 36.4–37.1; O2SAT 80–93
[2021-11-14 06:48] LABS: Glucose Point of Care 151 mg/dL (70-110)
[2021-11-14 07:02] LABS: Basophils % 0.1 %; Hematocrit 43.2 % (37.0-47.0); Lymphocytes # 0.6 10^3/uL (0.8-4.8); Lymphocytes % 6.5 %; Mean Corpuscular HGB Conc 32.4 g/dL (30.0-36.0); Mean Corpuscular Volume 92.5 fl (81-99); Mean Platelet Volume 12.3 fL (7.4-10.4); Monocytes # 0.6 10^3/uL (0.2-0.9); Monocytes % 6.1 %; Neutrophils # 8.23 10^3/uL (1.8-7.7); Neutrophils % 86.9 %; Nucleated Red Blood Cells % 0 %; Platelet Count 164 10^3/cmm (130-400); Red Blood Count 4.67 10^6/uL (4.1-5.3); Red Cell Distribution Width 14.1 % (12.1-15.1); White Blood Count 9.5 10^3/uL (4.0-10.0)
[2021-11-14 07:08] LABS: Fibrinogen 831 mg/dL (174-498)
[2021-11-14 07:11] LABS: D Dimer 1.21 ug/mIFEU (0-0.59)
[2021-11-14 07:22] LABS: Albumin Level 2.7 g/dL (3.5-5.2); Alkaline Phosphatase 93 IU/L (35-105); Anion Gap 18.8 (5-19); Aspartate Amino Transferase 347 U/L (0-32); Blood Urea Nitrogen 39 mg/dL (8-23); C Reactive Protein 232.8 mg/L (0.0-4.9); Calcium 9.5 mg/dL (8.5-10.5); Carbon Dioxide 20 mmol/L (22-29); Chloride 101 mmol/L (98-107); Globulin 3.5 g/dL (1.3-4.6); Glucose 166 mg/dL (65-115); Lactate Dehydrogenase 374 U/L (135-214); Osmolality Calculated 295 mOsm/kg (285-295); Potassium 3.8 mmol/L (3.5-5.1); Sodium 136 mmol/L (136-145); Total Bilirubin 0.3 mg/dL (0.15-1.2); Total Protein 6.2 g/dL (6.6-8.7)
[2021-11-14 07:24] LABS: Erythrocyte Sedimentation Rate 74 mm/hr (0-15)
[2021-11-14 07:25] LABS: Creatine Phosphokinase 129 U/L (26-192)
[2021-11-14 07:36] LABS: Alanine Aminotransferase 738 U/L (0-33)
[2021-11-14] MEDS: dilTIAZem ER (24HR) 180 mg Capsule PO (08:31)
[2021-11-14] MEDS: zonisamide 100 MG Capsule 400 MG PO (08:31)
[2021-11-14] MEDS: pantoprazole DR 40 mg Tablet PO (08:31)
[2021-11-14] MEDS: insulin lispro 100 unit/1 mL SUBCUT ×3 (08:31→18:06)
[2021-11-14] MEDS: ascorbic acid 500 mg Tablet 1000 MG PO ×2 (08:31→17:08)
[2021-11-14] MEDS: venlafaxine ER (24HR) 150 mg Capsule PO (08:31)
[2021-11-14] MEDS: zinc gluconate 50 mg Tablet PO (08:32)
[2021-11-14] MEDS: levothyroxine 150 mcg Tablet PO (08:32)
[2021-11-14] MEDS: aspirin 81 mg EC Tablet PO (08:32)
[2021-11-14] MEDS: amiodarone 200 mg Tablet PO (08:32)
[2021-11-14] MEDS: escitalopram 10 mg Tablet 20 MG PO (08:32)
[2021-11-14] MEDS: metoprolol tartrate 50 mg Tablet PO (08:37)
--- NOTE | 2021-11-14 09:45 | PC.NURSE ---
Spoke to patient and patient daughter on phone today and updated on plan of care, denies further questions or concerns.
--- NOTE | 2021-11-14 13:57 | PC.NURSE ---
Patient tolerated sitting up in the chair for 2 hours, standby assist with ambulation, tolerated well.
--- NOTE | 2021-11-14 14:51 | PC.CHAP ---
Pastoral Care Encounter/Spiritual Assessment Type of Contact [] Declined transformation consultant visit [] Patient/Family/Request visit [] Outpatient visit [] Follow-up visit [] Physician referral [] Code/Alert [] Routine visit [] Staff referral [] Actively dying [] Patient sleeping [] Family support [] [] Out of room [] Palliative care [] [] Receiving care in room [] Pre-surgical visit [] Trauma [] Long length of stay [] ICU visit [xx] Other: Reverse Isolation precautions Relational/Emotional Strength [] Patient feels connected with others/family/visitors/staff [] Distress [] Loneliness/isolation [] Abandonment Spirituality of Patient [] Person of Elizabeth [] Attends Buddhist of their Elizabeth [] Believes in Prayer [] Reads Bible or Jainism materials [] There are Spiritual issues to be addressed Mortgage Broker Interventions [] Prayer [] Active listening [] Non-anxious presence [] Spiritual/emotional support [] Crisis/trauma care [] Spiritual counseling [] Bereavement support [] Provided bereavement packet [] Provided Bible/devotional materials [] Provided toy/stuffed animal, coloring book to patient or family member [] Provided Communion [] Anointing/[place] [] Salvation [] Completed spiritual assessment [] Other: Impact on Illness or Injury [] Angry [] Fearful [] Anxious [] Often cries [] Exhaustion [] Unable to work [] Unable to attend mu-ism [] Unable to walk/stand [] Unable to read [] Unable to drive [] Unable to eat/drink [] Unable to sleep [] Unable to be with family [] Patient intubated [] Other: Summary Time spent with patient
[2021-11-14] MEDS: dexamethasone 4 mg/mL INJ 6 MG IVP (17:08)
[2021-11-14] MEDS: remdesivir 100 MG in sodium chloride 0.9% (100 ml) 80 ML IV (17:25)
[2021-11-14 18:07] LABS: Glucose Point of Care 180 mg/dL (70-110)
--- NOTE | 2021-11-14 20:46 | P.PN_ITS ---
Subjective Subjective: Interval history: She is feeling about the same, coughing quite a bit. Vitals/I&O/Wt Last Vital Signs Temp 98.2 F 11/14/21 20:41 Pulse 79 11/14/21 20:41 Resp 21 H 11/14/21 20:41 BP 142/90 11/14/21 20:41 Pulse Ox 94 11/14/21 20:41 11/14/21 11/14/21 11/14/21 06:59 14:59 22:59 Intake Total 100 / 1760 585 / 585 425 / 1010 Output Total 500 / 500 Balance 100 / 1480 85 / 85 425 / 510 Weight last 48 hrs Weight 90.9 kg Weight 86.183 kg Physical Exam Const: COMMON NORMALS: no acute distress and alert GENERAL APPEARANCE: cooperative ORIENTATION/CONSCIOUSNESS: Yes awake HENMT: COMMON NORMALS: oropharynx normal Neck/C-Spine: COMMON NORMALS: no JVD Resp: COMMON NORMALS: normal respiratory effort and clear to auscultation bilaterally AUSCULTATION: clear to auscultation bilaterally Cardio: COMMON NORMALS: no JVD, regular rhythm, S1 normal heart sound present, S2 normal heart sound present and No murmurs present (Cardio) RHYTHM: regular rhythm HEART SOUNDS: S1 normal heart sound present and S2 normal heart sound present GI: COMMON NORMALS: Normal to inspection, nondistended, normoactive bowel sounds present, Soft to palpation and non-tender PALPATION: Yes Soft to palpation Extremity: COMMON NORMALS: no joint enlargement and no pedal edema Neuro: COMMON NORMALS: moves all extremities SENSORIUM/ORIENTATION: Yes alert Skin: COMMON NORMALS: no rashes or lesions noted GENERAL SKIN EXAM: no rashes or lesions noted Data : 11/14/21 06:14 11/14/21 06:14 Micro: Microbiology 11/12/21 16:15 Urine Culture - Preliminary Urine,Clean Catch 11/13/21 06:32 Blood Culture - Preliminary Blood NEGATIVE TO DATE 11/13/21 06:25 Blood Culture - Preliminary Blood NEGATIVE TO DATE A&P Assessment and plan (1) Pneumonia due to COVID-19 virus: Oxygen requirement worsened. She has been coughing quite a bit. Add antitussives. Repeat chest x-ray in the morning. Continue remdesivir, Decadron, supportive measures. Continue oxygen support. Follow-up D-dimer, CRP. Status: Acute (2) Transaminitis: Improving. Suspect secondary to COVID-19. Liver is normal size, mild coarse echotexture suggesting changes of cirrhosis or chronic hepatocellular disease. Normal hepatopetal pedal flow in portal vein with monophasic waveform. Gallbladder normally distended, small polyp versus adherent gallstone. CBD normal. Unremarkable hepatitis serologies. Status: Acute (3) Atrial fibrillation: Improved. Responded well to additional IV metoprolol pushes. Continue diltiazem, metoprolol p.o. Amiodarone. Xarelto. Continue on cardiac monitoring. Status: Acute Qualifiers: Atrial fibrillation type: paroxysmal Qualified Code(s): I48.0 - Paroxysmal atrial fibrillation (4) Hypothyroidism: Status: Acute Qualifiers: Hypothyroidism type: unspecified Qualified Code(s): E03.9 - Hypothyroidism, unspecified (5) Hypertension: Status: Acute Qualifiers: Hypertension type: essential hypertension Qualified Code(s): I10 - Essential (primary) hypertension (6) Obstructive sleep apnea: Status: Acute (7) Status post cardiac pacemaker procedure: Status: Acute (8) Type 2 diabetes mellitus: Status: Acute Qualifiers: Diabetes mellitus retirement insulin use: without terminal clerk use Diabetes mellitus complication status: with hyperglycemia Qualified Code(s): E11.65 - Type 2 diabetes mellitus with hyperglycemia (9) Tachy-martin syndrome: Status: Acute (10) CHF (congestive heart failure): Status: Acute Qualifiers: Heart failure type: diastolic Heart failure chronicity: chronic Qualified Code(s): I50.32 - Chronic diastolic (congestive) heart failure (11) Seizure: Reports seizure episode in ER, although RN in ER did not observe typical seizure. Continue zonisamide, Keppra. Status: Acute (12) Vomiting: Status: Acute (13) Stroke due to embolism of left middle cerebral artery: Status: Acute Additional A&P Information Rhabdomyolysis: Resolved. Bumex held for now. History of CVA Attestations Medical Necessity Statement*: Continue admission for assessment management of worsening hypoxia with severe COVID-19. Coding Level of Care Code Acute Customer Service Dispatcher for [facility] Diagnoses Pneumonia due to COVID-19 virus U07.1; J12.82 Transaminitis R74.01 Atrial fibrillation I48.0 Atrial fibrillation type: paroxysmal Hypothyroidism E03.9 Hypothyroidism type: unspecified Hypertension I10 Hypertension type: essential hypertension Obstructive sleep apnea G47.33 Status post cardiac pacemaker procedure Z95.0 Type 2 diabetes mellitus E11.65 Diabetes mellitus retirement insulin use: without retirement use Diabetes mellitus complication status: with hyperglycemia 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
[2021-11-14] MEDS: benzonatate 100 mg Capsule 200 MG PO (21:28)
[2021-11-14 23:04] LABS: Glucose Point of Care 233 mg/dL (70-110)
[2021-11-15] VITALS (10 sets, daily range): BP systolic 100–116; BP diastolic 63–75; PULSE 66–106; RESP 16–19; TEMP 36.3–36.8; O2SAT 89–96
--- NOTE | 2021-11-15 06:00 | XRR_ITS ---
PROCEDURE INFORMATION: Exam: XR Chest Exam date and time: 11/15/2021 6:00 AM Age: 75 years old Clinical indication: Shortness of breath; Patient HX: Hypoxia TECHNIQUE: Imaging protocol: XR of the chest. Views: 1 view. COMPARISON: 1. CR XR chest 1V portable [id number] 11/12/2021 3:[address] angio chest PE protcl [id number] 11/12/2021 5:07 PM FINDINGS: Tubes, catheters and devices: There is a left subclavian dual chamber pacemaker. Lungs: Ill-defined bilateral, multifocal, peripheral foci of airspace disease that would be compatible with COVID-19 pneumonia. These changes are not significantly different from the prior comparison XR CHEST exam. Pleural spaces: No pleural effusion or pneumothorax. Heart/Mediastinum: The cardiac silhouette is not enlarged. The mediastinal contours are normal. There is a left epicardial fat pad. Bones/joints: No acute osseous abnormality. XR/XR chest 1V portable [id number] IMPRESSION: Changes compatible with COVID-19 pneumonia, not significantly changed.
[2021-11-15 06:25] LABS: Basophils % 0.1 %; Hematocrit 42.5 % (37.0-47.0); Hemoglobin 13.9 g/dL (11.5-15.3); Lymphocytes # 0.5 10^3/uL (0.8-4.8); Lymphocytes % 4.9 %; Mean Corpuscular HGB Conc 32.7 g/dL (30.0-36.0); Mean Corpuscular Hemoglobin 31.2 pg (28.0-34.0); Mean Corpuscular Volume 95.5 fl (81-99); Mean Platelet Volume 12.4 fL (7.4-10.4); Monocytes # 0.6 10^3/uL (0.2-0.9); Monocytes % 5.4 %; Neutrophils # 9.12 10^3/uL (1.8-7.7); Neutrophils % 88.9 %; Nucleated Red Blood Cells % 0 %; Platelet Count 189 10^3/cmm (130-400); Red Blood Count 4.45 10^6/uL (4.1-5.3); Red Cell Distribution Width 14.3 % (12.1-15.1); White Blood Count 10.3 10^3/uL (4.0-10.0)
[2021-11-15 06:37] LABS: D Dimer 1.07 ug/mIFEU (0-0.59)
[2021-11-15 06:46] LABS: Alanine Aminotransferase 493 U/L (0-33); Albumin Level 2.7 g/dL (3.5-5.2); Alkaline Phosphatase 95 IU/L (35-105); Aspartate Amino Transferase 145 U/L (0-32); Blood Urea Nitrogen 46 mg/dL (8-23); C Reactive Protein 139.7 mg/L (0.0-4.9); Calcium 9.4 mg/dL (8.5-10.5); Carbon Dioxide 22 mmol/L (22-29); Chloride 103 mmol/L (98-107); Glucose 191 mg/dL (65-115); Lactate Dehydrogenase 341 U/L (135-214); Osmolality Calculated 305 mOsm/kg (285-295); Sodium 139 mmol/L (136-145); Total Bilirubin 0.3 mg/dL (0.15-1.2); Total Protein 5.7 g/dL (6.6-8.7)
[2021-11-15 07:01] LABS: Erythrocyte Sedimentation Rate 68 mm/hr (0-15)
[2021-11-15] MEDS: dilTIAZem ER (24HR) 180 mg Capsule PO (08:58)
[2021-11-15] MEDS: escitalopram 10 mg Tablet 20 MG PO (08:58)
[2021-11-15] MEDS: insulin lispro 100 unit/1 mL SUBCUT ×2 (08:58→17:52)
[2021-11-15] MEDS: venlafaxine ER (24HR) 150 mg Capsule PO (08:58)
[2021-11-15] MEDS: zonisamide 100 MG Capsule 400 MG PO (08:58)
[2021-11-15] MEDS: zinc gluconate 50 mg Tablet PO (08:58)
[2021-11-15] MEDS: benzonatate 100 mg Capsule 200 MG PO ×3 (08:58→22:24)
[2021-11-15] MEDS: levothyroxine 150 mcg Tablet PO (08:59)
[2021-11-15] MEDS: ascorbic acid 500 mg Tablet 1000 MG PO ×2 (08:59→17:18)
[2021-11-15] MEDS: pantoprazole DR 40 mg Tablet PO (08:59)
[2021-11-15] MEDS: amiodarone 200 mg Tablet PO (08:59)
[2021-11-15] MEDS: aspirin 81 mg EC Tablet PO (08:59)
[2021-11-15] MEDS: metoprolol tartrate 50 mg Tablet PO (09:00)
[2021-11-15] MEDS: acetaminophen 325 mg Tablet 650 MG PO (09:13)
--- NOTE | 2021-11-15 11:13 | PM.PN ---
Subjective Subjective: Interval history: She is doing slightly better she feels Slightly better, still intermittent. Denies headache, nausea vomiting or diarrhea. Vitals/I&O/Wt Last Vital Signs Temp 97.7 F 11/15/21 09:02 Pulse 106 H 11/15/21 09:02 Resp 16 11/15/21 09:02 BP 113/63 11/15/21 09:02 Pulse Ox 96 11/15/21 09:02 11/14/21 11/15/21 11/15/21 22:59 06:59 14:59 Intake Total 665 / 1250 340 / 1590 105 / 105 Balance 665 / 750 340 / 1090 105 / 105 Weight last 48 hrs Weight 90.174 kg Weight 90.9 kg Weight 86.183 kg Physical Exam Const: COMMON NORMALS: no acute distress and alert GENERAL APPEARANCE: cooperative ORIENTATION/CONSCIOUSNESS: Yes awake HENMT: COMMON NORMALS: oropharynx normal Neck/C-Spine: COMMON NORMALS: no JVD Resp: COMMON NORMALS: normal respiratory effort and clear to auscultation bilaterally AUSCULTATION: clear to auscultation bilaterally Cardio: COMMON NORMALS: no JVD, regular rhythm, S1 normal heart sound present, S2 normal heart sound present and No murmurs present (Cardio) RHYTHM: regular rhythm HEART SOUNDS: S1 normal heart sound present and S2 normal heart sound present GI: COMMON NORMALS: Normal to inspection, nondistended, normoactive bowel sounds present, Soft to palpation and non-tender PALPATION: Yes Soft to palpation Extremity: COMMON NORMALS: no joint enlargement and no pedal edema Neuro: COMMON NORMALS: moves all extremities SENSORIUM/ORIENTATION: Yes alert Skin: COMMON NORMALS: no rashes or lesions noted GENERAL SKIN EXAM: no rashes or lesions noted Data : 11/15/21 05:26 11/15/21 05:26 Micro: Microbiology 11/12/21 16:15 Urine Culture - Final Urine,Clean Catch 11/13/21 06:32 Blood Culture - Preliminary Blood NEGATIVE TO DATE 11/13/21 06:25 Blood Culture - Preliminary Blood NEGATIVE TO DATE A&P Assessment and plan (1) Pneumonia due to COVID-19 virus: Again somewhat worse oxygen requirement, needing 6 L nasal cannula oxygen. Reports at baseline uses 2 L at home. Chest x-ray repeated, so far no suggestion of additional CHF, she does not appear fluid overloaded on exam. Bumex has been on hold so far, will not restart just yet given does not appear overloaded and some fluctuation in renal function. Continue remdesivir, Decadron, supportive measures. Continue oxygen support. Follow-up D-dimer, CRP. Status: Acute (2) Transaminitis: Continuing to improve. Suspect secondary to COVID-19. Liver is normal size, mild coarse echotexture suggesting changes of cirrhosis or chronic hepatocellular disease. Normal hepatopetal pedal flow in portal vein with monophasic waveform. Gallbladder normally distended, small polyp versus adherent gallstone. CBD normal. Unremarkable hepatitis serologies. Status: Acute (3) Atrial fibrillation: Improved. Responded well to additional IV metoprolol pushes. Continue diltiazem, metoprolol p.o. Amiodarone. Xarelto. Continue on cardiac monitoring. Status: Acute Qualifiers: Atrial fibrillation type: paroxysmal Qualified Code(s): I48.0 - Paroxysmal atrial fibrillation (4) Hypothyroidism: Status: Acute Qualifiers: Hypothyroidism type: unspecified Qualified Code(s): E03.9 - Hypothyroidism, unspecified (5) Hypertension: Status: Acute Qualifiers: Hypertension type: essential hypertension Qualified Code(s): I10 - Essential (primary) hypertension (6) Obstructive sleep apnea: Status: Acute (7) Status post cardiac pacemaker procedure: Status: Acute (8) Type 2 diabetes mellitus: Status: Acute Qualifiers: Diabetes mellitus jail insulin use: without patient services technician use Diabetes mellitus complication status: with hyperglycemia Qualified Code(s): E11.65 - Type 2 diabetes mellitus with hyperglycemia (9) Tachy-martin syndrome: Status: Acute (10) CHF (congestive heart failure): Status: Acute Qualifiers: Heart failure type: diastolic Heart failure chronicity: chronic Qualified Code(s): I50.32 - Chronic diastolic (congestive) heart failure (11) Seizure: Reports seizure episode in ER, although RN in ER did not observe typical seizure. Continue zonisamide, Keppra. Status: Acute (12) Vomiting: Status: Acute (13) Stroke due to embolism of left middle cerebral artery: Status: Acute Additional A&P Information Rhabdomyolysis: Resolved. Bumex held for now. History of CVA Attestations Medical Necessity Statement*: Continue admission for assessment management of severe COVID-19 pneumonia. Coding Level of Care Code Acute Director Payer for [facility] Diagnoses Pneumonia due to COVID-19 virus U07.1; J12.82 Transaminitis R74.01 Atrial fibrillation I48.0 Atrial fibrillation type: paroxysmal Hypothyroidism E03.9 Hypothyroidism type: unspecified Hypertension I10 Hypertension type: essential hypertension Obstructive sleep apnea G47.33 Status post cardiac pacemaker procedure Z95.0 Type 2 diabetes mellitus E11.65 Diabetes mellitus patient services technician insulin use: without patient services technician use Diabetes mellitus complication status: with hyperglycemia 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
--- NOTE | 2021-11-15 12:18 | PC.SOCIAL ---
IMM update IMM updated with patient. Verbalized an understanding. Initialled, dated, timed, and placed in chart.
[2021-11-15] MEDS: dexamethasone 4 mg/mL INJ 6 MG IVP (17:18)
[2021-11-15 17:41] LABS: Glucose Point of Care 252 mg/dL (70-110)
[2021-11-15] MEDS: remdesivir 100 MG in sodium chloride 0.9% (100 ml) 80 ML IV (17:51)
[2021-11-15 20:58] LABS: Glucose Point of Care 212 mg/dL (70-110)
[2021-11-16] VITALS (9 sets, daily range): BP systolic 112–125; BP diastolic 62–83; PULSE 71–111; RESP 17–19; TEMP 36.4–36.7; O2SAT 90–95
[2021-11-16 06:27] LABS: Glucose Point of Care 251 mg/dL (70-110)
[2021-11-16 06:48] LABS: Basophils % 0.2 %; Hematocrit 43.7 % (37.0-47.0); Lymphocytes # 0.5 10^3/uL (0.8-4.8); Lymphocytes % 4.5 %; Mean Corpuscular Hemoglobin 30.4 pg (28.0-34.0); Mean Platelet Volume 12.4 fL (7.4-10.4); Monocytes # 0.6 10^3/uL (0.2-0.9); Monocytes % 5.3 %; Neutrophils # 10.02 10^3/uL (1.8-7.7); Neutrophils % 89.3 %; Nucleated Red Blood Cells % 0 %; Platelet Count 214 10^3/cmm (130-400); Red Cell Distribution Width 14.5 % (12.1-15.1); White Blood Count 11.2 10^3/uL (4.0-10.0)
[2021-11-16 07:08] LABS: Alanine Aminotransferase 374 U/L (0-33); Alkaline Phosphatase 99 IU/L (35-105); Anion Gap 16.1 (5-19); Aspartate Amino Transferase 69 U/L (0-32); Blood Urea Nitrogen 45 mg/dL (8-23); Calcium 9.4 mg/dL (8.5-10.5); Carbon Dioxide 24 mmol/L (22-29); Chloride 103 mmol/L (98-107); Globulin 2.9 g/dL (1.3-4.6); Glucose 207 mg/dL (65-115); Osmolality Calculated 306 mOsm/kg (285-295); Potassium 4.1 mmol/L (3.5-5.1); Sodium 139 mmol/L (136-145); Total Bilirubin 0.3 mg/dL (0.15-1.2); Total Protein 5.9 g/dL (6.6-8.7)
[2021-11-16 07:15] LABS: C Reactive Protein 87.2 mg/L (0.0-4.9); Lactate Dehydrogenase 317 U/L (135-214)
[2021-11-16 07:19] LABS: Erythrocyte Sedimentation Rate 57 mm/hr (0-15)
[2021-11-16] MEDS: insulin lispro 100 unit/1 mL SUBCUT ×3 (09:54→17:47)
[2021-11-16] MEDS: escitalopram 10 mg Tablet 20 MG PO (09:54)
[2021-11-16] MEDS: amiodarone 200 mg Tablet PO (09:54)
[2021-11-16] MEDS: venlafaxine ER (24HR) 150 mg Capsule PO (09:54)
[2021-11-16] MEDS: zinc gluconate 50 mg Tablet PO (09:55)
[2021-11-16] MEDS: pantoprazole DR 40 mg Tablet PO (09:55)
[2021-11-16] MEDS: dilTIAZem ER (24HR) 180 mg Capsule PO (09:55)
[2021-11-16] MEDS: aspirin 81 mg EC Tablet PO (09:55)
[2021-11-16] MEDS: benzonatate 100 mg Capsule 200 MG PO ×3 (09:55→20:55)
[2021-11-16] MEDS: ascorbic acid 500 mg Tablet 1000 MG PO ×2 (09:55→17:47)
[2021-11-16] MEDS: metoprolol tartrate 50 mg Tablet PO ×2 (09:55→20:55)
[2021-11-16] MEDS: levothyroxine 150 mcg Tablet PO (09:55)
[2021-11-16] MEDS: zonisamide 100 MG Capsule 400 MG PO (09:56)
[2021-11-16 11:10] LABS: Glucose Point of Care 281 mg/dL (70-110)
[2021-11-16 17:06] LABS: Glucose Point of Care 187 mg/dL (70-110)
[2021-11-16] MEDS: dexamethasone 4 mg/mL INJ 6 MG IVP (17:53)
[2021-11-16] MEDS: remdesivir 100 MG in sodium chloride 0.9% (100 ml) 80 ML IV (18:38)
[2021-11-16 20:28] LABS: Glucose Point of Care 169 mg/dL (70-110)
--- NOTE | 2021-11-16 20:59 | P.PN_ITS ---
Subjective Subjective: Interval history: Head is swimming . Some intermittent cough, not very bothersome. Denies chest pain or pressure. Feels somewhat tired still. No nausea vomiting or diarrhea. Vitals/I&O/Wt Last Vital Signs Temp 97.9 F 11/16/21 19:42 Pulse 85 11/16/21 19:42 Resp 17 11/16/21 19:42 BP 112/62 11/16/21 19:42 Pulse Ox 94 11/16/21 19:42 11/16/21 11/16/21 11/16/21 06:59 14:59 22:59 Intake Total 200 / 790 345 / 345 305 / 650 Output Total 400 / 1700 Balance -200 / -910 345 / 345 305 / 650 Weight last 48 hrs Weight 91.989 kg Weight 90.174 kg Physical Exam Const: COMMON NORMALS: alert GENERAL APPEARANCE: cooperative ORIENTATION/CONSCIOUSNESS: Yes awake HENMT: COMMON NORMALS: oropharynx normal Neck/C-Spine: COMMON NORMALS: no JVD Resp: COMMON NORMALS: normal respiratory effort and clear to auscultation bilaterally AUSCULTATION: clear to auscultation bilaterally Cardio: COMMON NORMALS: no JVD, regular rhythm, S1 normal heart sound present, S2 normal heart sound present and No murmurs present (Cardio) RHYTHM: regular rhythm HEART SOUNDS: S1 normal heart sound present and S2 normal heart sound present GI: COMMON NORMALS: Normal to inspection, nondistended, normoactive bowel sounds present, Soft to palpation and non-tender PALPATION: Yes Soft to palpation Extremity: COMMON NORMALS: no joint enlargement and no pedal edema Neuro: COMMON NORMALS: moves all extremities SENSORIUM/ORIENTATION: Yes alert Skin: COMMON NORMALS: no rashes or lesions noted GENERAL SKIN EXAM: no rashes or lesions noted Data : 11/16/21 05:50 11/16/21 05:50 A&P Assessment and plan (1) Pneumonia due to COVID-19 virus: Oxygenation slightly better, down to 5 L nasal cannula. If continues to improve/does better, she may consider returning home with nasal cannula oxygen to continue recovery there, although did not feel ready yet today due to borderline oxygenation, tiredness/weakness. Reports at baseline uses 2 L at home. Chest x-ray repeated, so far no suggestion of additional CHF, she does not appear fluid overloaded on exam. Bumex has been on hold so far, will not restart just yet given does not appear overloaded and some fluctuation in renal function. Continue remdesivir, Decadron, supportive measures. Xarelto. Continue oxygen support. Follow-up D-dimer, CRP. Status: Acute (2) Transaminitis: Continuing to improve. Suspect secondary to COVID-19. Liver is normal size, mild coarse echotexture suggesting changes of cirrhosis or chronic hepatocellular disease. Normal hepatopetal pedal flow in portal vein with m onophasic waveform. Gallbladder normally distended, small polyp versus adherent gallstone. CBD normal. Unremarkable hepatitis serologies. Outpatient follow-up for gallbladder polyp. Status: Acute (3) Atrial fibrillation: Improved. Responded well to additional IV metoprolol pushes. Continue diltiazem, metoprolol p.o. Amiodarone. Xarelto. Continue on cardiac monitoring. Status: Acute Qualifiers: Atrial fibrillation type: paroxysmal Qualified Code(s): I48.0 - Paroxysmal atrial fibrillation (4) Hypothyroidism: Status: Acute Qualifiers: Hypothyroidism type: unspecified Qualified Code(s): E03.9 - Hypothyroidism, unspecified (5) Hypertension: Status: Acute Qualifiers: Hypertension type: essential hypertension Qualified Code(s): I10 - Essential (primary) hypertension (6) Obstructive sleep apnea: Status: Acute (7) Status post cardiac pacemaker procedure: Status: Acute (8) Type 2 diabetes mellitus: Status: Acute Qualifiers: Diabetes mellitus termite exterminator insulin use: without termite exterminator use Diabetes mellitus complication status: with hyperglycemia Qualified Code(s): E11.65 - Type 2 diabetes mellitus with hyperglycemia (9) Tachy-martin syndrome: Status: Acute (10) CHF (congestive heart failure): Status: Acute Qualifiers: Heart failure type: diastolic Heart failure chronicity: chronic Qualified Code(s): I50.32 - Chronic diastolic (congestive) heart failure (11) Seizure: Reports seizure episode in ER, although RN in ER did not observe typical seizure. Continue zonisamide, Keppra. Status: Acute (12) Vomiting: Status: Acute (13) Stroke due to embolism of left middle cerebral artery: Status: Acute Additional A&P Information Rhabdomyolysis: Resolved. Bumex held for now. History of CVA Attestations Medical Necessity Statement*: Continue admission for assessment management of severe COVID-19, hypoxia. 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
[2021-11-17] VITALS (9 sets, daily range): BP systolic 115–137; BP diastolic 71–88; PULSE 0–127; RESP 15–18; TEMP 36.4–36.8; O2SAT 91–97
[2021-11-17 05:52] LABS: Basophils % 0.1 %; Hematocrit 44.2 % (37.0-47.0); Lymphocytes # 0.6 10^3/uL (0.8-4.8); Lymphocytes % 5.6 %; Mean Corpuscular HGB Conc 31.7 g/dL (30.0-36.0); Mean Corpuscular Hemoglobin 30.8 pg (28.0-34.0); Mean Corpuscular Volume 97.4 fl (81-99); Monocytes # 0.5 10^3/uL (0.2-0.9); Monocytes % 4.3 %; Neutrophils # 9.27 10^3/uL (1.8-7.7); Neutrophils % 88.6 %; Nucleated Red Blood Cells % 0 %; Platelet Count 240 10^3/cmm (130-400); Red Blood Count 4.54 10^6/uL (4.1-5.3); Red Cell Distribution Width 14.6 % (12.1-15.1); White Blood Count 10.5 10^3/uL (4.0-10.0)
[2021-11-17 06:14] LABS: D Dimer 1.21 ug/mIFEU (0-0.59)
[2021-11-17 06:20] LABS: Alanine Aminotransferase 288 U/L (0-33); Albumin Level 2.7 g/dL (3.5-5.2); Alkaline Phosphatase 90 IU/L (35-105); Anion Gap 17.3 (5-19); Aspartate Amino Transferase 40 U/L (0-32); Blood Urea Nitrogen 43 mg/dL (8-23); C Reactive Protein 49.3 mg/L (0.0-4.9); Calcium 10.1 mg/dL (8.5-10.5); Carbon Dioxide 23 mmol/L (22-29); Chloride 105 mmol/L (98-107); Globulin 3.2 g/dL (1.3-4.6); Glucose 223 mg/dL (65-115); Osmolality Calculated 310 mOsm/kg (285-295); Potassium 4.3 mmol/L (3.5-5.1); Sodium 141 mmol/L (136-145); Total Bilirubin 0.3 mg/dL (0.15-1.2); Total Protein 5.9 g/dL (6.6-8.7)
[2021-11-17 06:42] LABS: Glucose Point of Care 209 mg/dL (70-110)
--- NOTE | 2021-11-17 08:51 | PC.CHAP ---
Pastoral Care Encounter/Spiritual Assessment Type of Contact [] Declined software security consultant visit [] Patient/Family/Request visit [] Outpatient visit [] Follow-up visit [] Physician referral [] Code/Alert [x] Routine visit [] Staff referral [] Actively dying [] Patient sleeping [] Family support [] [] Out of room [] Palliative care [] [] Receiving care in room [] Pre-surgical visit [] Trauma [] Long length of stay [] ICU visit [] Other: Relational/Emotional Strength [x] Patient feels connected with others/family/visitors/staff [] Distress [] Loneliness/isolation [] Abandonment Spirituality of Patient [x] Person of Elizabeth [] Attends Jain of their Elizabeth [x] Believes in Prayer [x] Reads Bible or Rastafari materials [] There are Spiritual issues to be addressed Client Support Representative Interventions [x] Prayer [x] Active listening [x] Non-anxious presence [] Spiritual/emotional support [] Crisis/trauma care [] Spiritual counseling [] Bereavement support [] Provided bereavement packet [] Provided Bible/devotional materials [] Provided toy/stuffed animal, coloring book to patient or family member [] Provided Communion [] Anointing/[place] [] Salvation [x] Completed spiritual assessment [] Other: Impact on Illness or Injury [] Angry [] Fearful [] Anxious [] Often cries [] Exhaustion [] Unable to work [] Unable to attend yazidism [] Unable to walk/stand [] Unable to read [] Unable to drive [] Unable to eat/drink [] Unable to sleep [] Unable to be with family [] Patient intubated [] Other: Summary Time spent with patient 5 min
[2021-11-17] MEDS: insulin lispro 100 unit/1 mL SUBCUT ×3 (10:12→18:24)
[2021-11-17] MEDS: venlafaxine ER (24HR) 150 mg Capsule PO (10:13)
[2021-11-17] MEDS: aspirin 81 mg EC Tablet PO (10:13)
[2021-11-17] MEDS: zinc gluconate 50 mg Tablet PO (10:13)
[2021-11-17] MEDS: ascorbic acid 500 mg Tablet 1000 MG PO (10:13)
[2021-11-17] MEDS: levothyroxine 150 mcg Tablet PO (10:13)
[2021-11-17] MEDS: pantoprazole DR 40 mg Tablet PO (10:13)
[2021-11-17] MEDS: benzonatate 100 mg Capsule 200 MG PO ×3 (10:14→21:52)
[2021-11-17] MEDS: metoprolol tartrate 50 mg Tablet PO ×2 (10:14→21:52)
[2021-11-17] MEDS: escitalopram 10 mg Tablet 20 MG PO (10:14)
[2021-11-17] MEDS: amiodarone 200 mg Tablet PO (10:14)
[2021-11-17] MEDS: dilTIAZem ER (24HR) 180 mg Capsule PO (10:15)
[2021-11-17] MEDS: zonisamide 100 MG Capsule 400 MG PO (10:15)
[2021-11-17 12:30] LABS: Glucose Point of Care 209 mg/dL (70-110)
[2021-11-17 13:45] LABS: D Dimer 1.44 ug/mIFEU (0-0.59)
[2021-11-17 13:47] LABS: Thyroid Stimulating Hormone 0.19 uIU/mL (0.27-4.20)
[2021-11-17] MEDS: FUROsemide 40 mg Tablet PO (13:47)
[2021-11-17 13:49] LABS: NT Pro B Type Natriuretic Pept 2935 pg/mL (0-125); Procalcitonin 0.12 ng/mL (0-0.5)
[2021-11-17 14:10] LABS: Iron 63 ug/dL (37-145); Percent Saturation 39.1 % (20-50); Total Iron Binding Capacity 161 mcg/dl; Unsaturated Iron Binding 98 ug/dL (112-347)
--- NOTE | 2021-11-17 14:19 | P.PN_ITS ---
Subjective Subjective: Interval history: Hospital course, labs appreciated. On examination laying comfortably in bed in left lateral position. Off oxygen. States she had taken a of her oxygen because she was told she was being transitioned over to 1 with a longer tube. During morning has been turned down to 4 L saturating more than 92%. On examination patient was comfortable even off oxygen. Denies any nausea, vomiting, headache. Appetite not good. Has lunch in front of her but does not want to eat. Vitals/I&O/Wt Last Vital Signs Temp 97.7 F 11/17/21 08:00 Pulse 102 H 11/17/21 10:26 Resp 17 11/17/21 10:26 BP 121/80 11/17/21 08:00 Pulse Ox 93 11/17/21 10:26 11/16/21 11/17/21 11/17/21 22:59 06:59 14:59 Intake Total 305 / 650 118 / 768 345 / 345 Balance 305 / 650 118 / 768 345 / 345 Weight last 48 hrs Weight 91.399 kg Weight 91.989 kg Physical Exam Const: COMMON NORMALS: alert GENERAL APPEARANCE: cooperative ORIENTATION/CONSCIOUSNESS: Yes awake OTHER: Somewhat sluggish responses. HENMT: COMMON NORMALS: normocephalic, atraumatic and oropharynx normal HEAD & SCALP: normocephalic and atraumatic Neck/C-Spine: COMMON NORMALS: no JVD Resp: COMMON NORMALS: normal respiratory effort and clear to auscultation bilaterally EFFORT & INSPECTION: Yes symmetric chest movement AUSCULTATION: clear to auscultation bilaterally Cardio: COMMON NORMALS: no JVD, regular rhythm, S1 normal heart sound present, S2 normal heart sound present and No murmurs present (Cardio) RHYTHM: regular rhythm HEART SOUNDS: S1 normal heart sound present and S2 normal heart sound present OTHER: Irregularly irregular rhythm, S1-S2 variable intensity GI: COMMON NORMALS: Normal to inspection, nondistended, normoactive bowel sounds present, Soft to palpation, non-tender, No hepatosplenomegaly present and no masses AUSCULTATION: Yes normoactive bowel sounds PALPATION: Yes Soft to palpation and Yes No hepatosplenomegaly present RECTAL EXAM: deferred Extremity: COMMON NORMALS: no joint enlargement, no clubbing, cyanosis or edema and no pedal edema Neuro: COMMON NORMALS: moves all extremities SENSORIUM/ORIENTATION: Yes alert Skin: COMMON NORMALS: no rashes or lesions noted GENERAL SKIN EXAM: no rashes or lesions noted Data : 11/17/21 05:07 11/17/21 05:07 A&P Assessment and plan (1) Pneumonia due to COVID-19 virus: Hypoxia secondary to COVID-19 pneumonia: Mild to moderate disease. Down to 4 L oxygen supplementation. Oxygen supplementation keeping saturation over 88%. Dexamethasone 6 mg daily. Remdesivir to finish a 5-day course. Last dose on 11/17. Vitamin C, zinc. Start on Advair, Spiriva. Pulmonary toilet with incentive spirometry flutter valve. We will monitor inflammatory markers including D-dimer, CRP every 48 hours. If getting elevated will dose Actemra. Patient was made aware of the same and he has given verbal consent. D-dimer elevated. CTA negative for pulmonary embolism. Restart home dose of Xarelto. Will monitor for anemia or blood loss. Sputum culture awaited, procalcitonin negative, blood cultures so far negative. Low suspicion of superimposed bacterial infection. Continue to hold off on antibiotics for now. Given hypoxia will try to keep patient as negative as possible. Takes Bumex 1 mg oral daily at home. Check echocardiogram. Oral Lasix 40 mg once. Strict input output charting, daily weights. Status: Acute (2) Transaminitis: Continuing to improve. Suspect secondary to COVID-19. Liver is normal size, mild coarse echotexture suggesting changes of cirrhosis or chronic hepatocellular disease. Normal hepatopetal pedal flow in portal vein with monophasic waveform. Gallbladder normally distended, small polyp versus a dherent gallstone. CBD normal. Unremarkable hepatitis serologies. Outpatient follow-up for gallbladder polyp. Status: Acute (3) Atrial fibrillation: Rate controlled. Increase dose of Cardizem to 240 mg daily. Continue with home dose of metoprolol, amiodarone. Restart Xarelto. Telemetry. Status: Acute Qualifiers: Atrial fibrillation type: paroxysmal Qualified Code(s): I48.0 - Paroxysmal atrial fibrillation (4) Hypothyroidism: Check TSH. Status: Acute Qualifiers: Hypothyroidism type: unspecified Qualified Code(s): E03.9 - Hypothyroidism, unspecified (5) Hypertension: Goal blood pressure less than 140/90 mmHg. Status: Acute Qualifiers: Hypertension type: essential hypertension Qualified Code(s): I10 - Essential (primary) hypertension (6) Obstructive sleep apnea: Status: Acute (7) Status post cardiac pacemaker procedure: Status: Acute (8) Type 2 diabetes mellitus: Check HbA1c. Increase insulin sliding scale to moderate dose protocol. 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 Status: Acute (10) CHF (congestive heart failure): Status: Acute Qualifiers: Heart failure type: diastolic Heart failure chronicity: chronic Qualified Code(s): I50.32 - Chronic diastolic (congestive) heart failure (11) Seizure: Reports seizure episode in ER, although RN in ER did not observe typical seizure. Continue zonisamide, Keppra. Switch Keppra to oral. Check Keppra level. Status: Acute (12) Vomiting: Status: Acute (13) Stroke due to embolism of left middle cerebral artery: Status: Acute Additional A&P Information Full code. Protonix for PUD prophylaxis. Mechanical soft carb consistent diet. Discharge planning: Continue with hospitalization to finish remdesivir course. We will plan to discharge once remdesivir course finished after home O2 evaluation if oxygen requirement less than 4 L. Attestations Medical Necessity Statement*: Requires further hospitalization for management of hypoxia secondary to COVID-19 pneumonia, atrial fibrillation with rapid ventricular response Time Spent in Patient Care: Greater than 35 minutes (>than 50% of time spent in counselling and/or direct pt care on unit) . Coding Level of Care Code Acute [facility] [employer] for [facility] Fwd Diagnoses Pneumonia due to COVID-19 virus U07.1; J12.82 Transaminitis R74.01 Atrial fibrillation I48.0 Atrial fibrillation type: paroxysmal Hypothyroidism E03.9 Hypothyroidism type: unspecified Hypertension I10 Hypertension type: essential hypertension Obstructive sleep apnea G47.33 Status post cardiac pacemaker procedure Z95.0 Type 2 diabetes mellitus E11.65 Diabetes mellitus intermediate insulin use: without intermission coordinator use Diabetes mellitus complication status: with hyperglycemia 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
--- NOTE | 2021-11-17 16:50 | PC.SOCIAL ---
IMM Updated Updated pt on IMM via phone. No questions voiced. Provided pt a copy. Initialed, dated, & timed copy in chart.
[2021-11-17 17:43] LABS: Free T4 Free Thyroxine 1.95 ng/dL (0.82-1.77); T3 Free 1.1 PG/ML (2.0-4.4)
[2021-11-17] MEDS: ascorbic acid 500 mg Tablet PO (18:18)
[2021-11-17] MEDS: dexamethasone 4 mg/mL INJ 6 MG IVP (18:18)
[2021-11-17] MEDS: levETIRAcetam 500 mg Tablet PO (18:18)
[2021-11-17] MEDS: remdesivir 100 MG in sodium chloride 0.9% (100 ml) 80 ML IV (18:24)
[2021-11-17 18:29] LABS: Glucose Point of Care 170 mg/dL (70-110)
[2021-11-17 22:08] LABS: Glucose Point of Care 223 mg/dL (70-110)
[2021-11-18] VITALS (8 sets, daily range): BP systolic 110–127; BP diastolic 72–86; PULSE 76–104; RESP 15–17; TEMP 36.6–37.1; O2SAT 84–94
--- NOTE | 2021-11-18 06:00 | XR_ITS ---
WS: [id number] PORTABLE CHEST HISTORY: covid COMPARISON: 11/15/2021 LEFT subclavian dual lead cardiac pacer unchanged in position. Mild increase in the hazy opacifications throughout the RIGHT lung as compared to the most recent mari dy. Curvilinear increased density overlying the LEFT heart is new. No lobar collapse. No pneumomedias tinum. No pleural effusion or pneumothorax. Cardiac size: Normal. Mediastinum/Aorta: Very mildly prominent mediastinum probably on the basis of portable technique. No osseous abnormality seen. XR/XR chest 1V portable [id number] IMPRESSION: 1. Mild progression of hazy opacifications, most obvious throughout the RIGHT lung. 2. Otherwise no change.
[2021-11-18 06:40] LABS: Basophils % 0.2 %; Hematocrit 47.6 % (37.0-47.0); Lymphocytes # 0.4 10^3/uL (0.8-4.8); Lymphocytes % 4.7 %; Mean Corpuscular HGB Conc 31.5 g/dL (30.0-36.0); Mean Corpuscular Hemoglobin 30.5 pg (28.0-34.0); Mean Corpuscular Volume 96.7 fl (81-99); Mean Platelet Volume 11.9 fL (7.4-10.4); Monocytes # 0.4 10^3/uL (0.2-0.9); Monocytes % 3.8 %; Neutrophils # 8.25 10^3/uL (1.8-7.7); Neutrophils % 89.2 %; Nucleated Red Blood Cells % 0 %; Platelet Count 274 10^3/cmm (130-400); Red Blood Count 4.92 10^6/uL (4.1-5.3); Red Cell Distribution Width 14.6 % (12.1-15.1); White Blood Count 9.2 10^3/uL (4.0-10.0)
[2021-11-18 06:47] LABS: Alanine Aminotransferase 233 U/L (0-33); Albumin Level 3.1 g/dL (3.5-5.2); Alkaline Phosphatase 106 IU/L (35-105); Anion Gap 17.5 (5-19); Aspartate Amino Transferase 34 U/L (0-32); Blood Urea Nitrogen 40 mg/dL (8-23); Calcium 9.4 mg/dL (8.5-10.5); Carbon Dioxide 25 mmol/L (22-29); Chloride 101 mmol/L (98-107); Chol HDL Ratio 6.71 mg/dL (0.0-4.40); Cholesterol 94 mg/dL (0-200); Globulin 3.1 g/dL (1.3-4.6); Glucose 229 mg/dL (65-115); HDL Cholesterol 14 mg/dL (60-100); LDL Cholesterol Calculated 51 mg/dL (50-129); Osmolality Calculated 305 mOsm/kg (285-295); Potassium 4.5 mmol/L (3.5-5.1); Sodium 139 mmol/L (136-145); Total Bilirubin 0.4 mg/dL (0.15-1.2); Total Protein 6.2 g/dL (6.6-8.7); Triglycerides 143 mg/dL (0-150); VLDL Cholestrol Calculation 29 mg/dL (0-30)
[2021-11-18 07:01] LABS: Estmated Average Glucose 140; Hemoglobin A1C 6.5 % (4.0-6.0)
[2021-11-18 07:11] LABS: Glucose Point of Care 232 mg/dL (70-110)
[2021-11-18] MEDS: insulin lispro 100 unit/1 mL SUBCUT ×2 (09:03→11:26)
[2021-11-18] MEDS: rivaroxaban 10 mg Tablet 20 MG PO (09:04)
[2021-11-18] MEDS: pantoprazole DR 40 mg Tablet PO (09:04)
[2021-11-18] MEDS: zinc gluconate 50 mg Tablet PO (09:04)
[2021-11-18] MEDS: zonisamide 100 MG Capsule 400 MG PO (09:04)
[2021-11-18] MEDS: levETIRAcetam 500 mg Tablet PO (09:04)
[2021-11-18] MEDS: benzonatate 100 mg Capsule 200 MG PO (09:04)
[2021-11-18] MEDS: aspirin 81 mg EC Tablet PO (09:04)
[2021-11-18] MEDS: ascorbic acid 500 mg Tablet PO (09:04)
[2021-11-18] MEDS: escitalopram 10 mg Tablet 20 MG PO (09:04)
[2021-11-18] MEDS: amiodarone 200 mg Tablet PO (09:04)
[2021-11-18] MEDS: venlafaxine ER (24HR) 150 mg Capsule PO (09:04)
[2021-11-18] MEDS: dilTIAZem ER (24HR) 240 mg Capsule PO (09:05)
[2021-11-18] MEDS: metoprolol tartrate 50 mg Tablet PO (09:06)
[2021-11-18] MEDS: FUROsemide 40 mg Tablet PO (11:26)
--- NOTE | 2021-11-18 11:48 | P.DS_ITS ---
Discharge Providers Date of Admission: 11/12/21 20:31 Date of Discharge: November 18, 2021 Attending Provider at Admission: Eric Luciano MD Attending Provider at Discharge: Adams Joiner MD Primary Care Provider: STEFANI Villaseñor Diagnoses at Discharge Discharge Diagnosis (1) Pneumonia due to COVID-19 virus: Status: Acute (2) Transaminitis: Status: Acute (3) Atrial fibrillation: Status: Acute Qualifiers: Atrial fibrillation type: paroxysmal Qualified Code(s): I48.0 - Paroxysmal atrial fibrillation (4) Hypothyroidism: Status: Acute Qualifiers: Hypothyroidism type: unspecified Qualified Code(s): E03.9 - Hypothyroidism, unspecified Permanent problem details: -on levothyroxine (5) Hypertension: Status: Acute Qualifiers: Hypertension type: essential hypertension Qualified Code(s): I10 - Essential (primary) hypertension (6) Obstructive sleep apnea: Status: Acute (7) Status post cardiac pacemaker procedure: Status: Acute (8) Type 2 diabetes mellitus: Status: Acute Qualifiers: Diabetes mellitus mcfp insulin use: without mcfp use Diabetes mellitus complication status: with hyperglycemia Qualified Code(s): E11.65 - Type 2 diabetes mellitus with hyperglycemia (9) Tachy-martin syndrome: Status: Acute (10) CHF (congestive heart failure): Status: Acute Qualifiers: Heart failure type: diastolic Heart failure chronicity: chronic Q ualified Code(s): I50.32 - Chronic diastolic (congestive) heart failure (11) Seizure: Status: Acute (12) Vomiting: Status: Acute (13) Stroke due to embolism of left middle cerebral artery: Status: Acute Permanent problem details: -prior hx of L MCA CVA in 05/2019; did not receive tPA -has been f/u with Dr. Randall -attributed to atrial fibrillation -on ASA, statin, AC with Eliquis -has residual cognitive impairment Reason for Visit Reason for Visit: weakness Hospital Course Hospital Course History as per H&P: Gianluca Goode is a 75 year old female past medical history of hypertension, diabetes, atrial fibrillation, tachybradycardia syndrome status post pacemaker placement, HFpEF, SWETHA, CVA, vaccinated for COVID-19 ,came in with chief complaint of Generalized weakness, generalized body pain, cough, nausea, recurrent vomiting, abdominal pain, going on for the last 10 days, which has progressively worsened in the last 2 days. She denies any fever, headache, chest pain, urinary complaints. Hospital course: Patient was under the hospital for further management of hypoxia secondary COVID-19. She started on treatment for COVID-19 with IV dexamethasone, remdesivir, inhalation treatment and aggressive pulmonary toilet with incentive spirometry and flutter valve. She responded well to the treatment and her hospitalization was otherwise unremarkable other than the possibility of a seizure-like episode in the ER on admission. During hospitalization patient was started on Keppra which was later discontinued. Patient did have some transaminitis which is believed secondary COVID-19 and has been resolving. Levothyroxine dose was changed as per TSH levels. Patient is being discharged in hemodynamically stable condition. Advised to take inhalation treatment with Advair and Spiriva daily. Patient is to continue taking her Xarelto leg before. Advised to continue working with incentive spirometry and flutter valve while at home. Advised to continue taking dexamethasone 6 mg for next 10 days. Advised to follow-up with his primary care provider within the next 4 to 7 days. Can take his COVID-19 vaccination in 3 months. Advised to continue following social distancing and isolation protocol for next 10 days. Advised to come back to the ER if fever of more than 101 Fahrenheit, more difficulty breathing than usual or requiring higher oxygen supplementation. Physical Exam Const: COMMON NORMALS: alert GENERAL APPEARANCE: cooperative ORIENTATION/CONSCIOUSNESS: Yes awake OTHER: Somewhat sluggish responses. HENMT: COMMON NORMALS: normocephalic, atraumatic and oropharynx normal HEAD & SCALP: normocephalic and atraumatic Neck/C-Spine: COMMON NORMALS: no JVD Resp: COMMON NORMALS: normal respiratory effort and clear to auscultation bilaterally EFFORT & INSPECTION: Yes symmetric chest movement AUSCULTAT ION: clear to auscultation bilaterally Cardio: COMMON NORMALS: no JVD, regular rhythm, S1 normal heart sound present, S2 normal heart sound present and No murmurs present (Cardio) RHYTHM: regular rhythm HEART SOUNDS: S1 normal heart sound present and S2 normal heart sound present OTHER: Irregularly irregular rhythm, S1-S2 variable intensity GI: COMMON NORMALS: Normal to inspection, nondistended, normoactive bowel sounds present, Soft to palpation, non-tender, No hepatosplenomegaly present and no masses AUSCULTATION: Yes normoactive bowel sounds PALPATION: Yes Soft to palpation and Yes No hepatosplenomegaly present RECTAL EXAM: deferred Extremity: COMMON NORMALS: no joint enlargement, no clubbing, cyanosis or edema and no pedal edema Neuro: COMMON NORMALS: moves all extremities SENSORIUM/ORIENTATION: Yes alert Skin: COMMON NORMALS: no rashes or lesions noted GENERAL SKIN EXAM: no rashes or lesions noted Discharge Data Studies Completed and Pending Completed Studies During Hospitalization Category Date Time Status CT abdomen pelvis w con* [id number] Urgent Cat Scan 11/12/21 18:[address] angio chest PE protcl [id number] Stat Cat Scan 11/12/21 16:39 Completed XR chest 1V portable [id number] Q48H Exams 11/18/21 06:00 Completed XR chest 1V portable [id number] Routine Exams 11/15/21 06:00 Completed XR chest 1V portable [id number] Stat Exams 11/12/21 14:28 Completed US abdomen limited [id number] Routine Ultrasound 11/13/21 21:46 Completed Pending at discharge Category Date Time Status XR chest 1V portable [id number] Q48H Exams 11/20/21 06:00 Ordered XR chest 1V portable [id number] Q48H Exams 11/22/21 06:00 Ordered C Reactive Protein Q48H Lab 11/20/21 04:00 Ordered Levetiracetam Keppra Routine Lab 11/17/21 05:07 Received Sputum Culture and Gram Stain Routine Lab 11/12/21 21:34 Uncollected CV. echo complete* [id number] Routine Ultrasound 11/18/21 12:50 Taken Radiology Impressions Chest CTA 11/12/21 16:39 IMPRESSION: 1. Commonly reported imaging features of COVID-19 pneumonia are present. Other processes such as influenza pneumonia and organizing pneumonia, as can be seen with drug toxicity and connective tissue disease, can cause a similar imaging pattern. 2. There is no evidence of pulmonary embolism. 3. Adenopathy improved compared with 03/20/2020. 4. Cardiomegaly improved compared with 03/20/2020. Abdomen/Pelvis CT 11/12/21 18:49 IMPRESSION: 1. Commonly reported imaging features of COVID-19 pneumonia are present. Other processes such as influenza pneumonia and organizing pneumonia, as can be seen with drug toxicity and connective tissue disease, can cause a similar imaging pattern. 2. No acute findings in the abdomen. COMMENTS: Consistent with the [employer]'s Incidental Findings Committee white paper (J Am Rosana Radiol 2018): Any incidental renal lesion less than 1 cm or classified as too small to characterize, or any incidental cystic renal lesion characterized as simple-appearing, is likely benign. No follow-up imaging is recommended for these lesions per consensus recommendations based on imaging criteria. Abdomen Ultrasound 11/13/21 21:46 IMPRESSION: 1. Small polyp versus adherent gallstone. No pericholecystic fluid or evidence for acute cholecystitis. 2. Pancreas not visualized. 3. Small simple cyst RIGHT kidney. 4. Normal size liver with parenchymal changes suggesting mild hepatocellular disease/cirrhosis. Chest X-Ray 11/18/21 06:00 IMPRESSION: 1. Mild progression of hazy opacifications, most obvious throughout the RIGHT lung. 2. Otherwise no change. Laboratory Results WBC 9.2 10^3/uL (4.0-10.0) 11/18/21 05:39 RBC 4.92 10^6/uL (4.1-5.3) 11/18/21 05:39 Hgb 15.0 g/dL (11.5-15.3) 11/18/21 05:39 Hct 47.6 % (37.0-47.0) H 11/18/21 05:39 MCV 96.7 fl (81-99) 11/18/21 05:39 MCH 30.5 pg (28.0-34.0) 11/18/21 05:39 MCHC 31.5 g/dL (30.0-36.0) 11/18/21 05:39 RDW 14.6 % (12.1-15.1) 11/18/21 05:39 Plt Count 274 10^3/cmm (130-400) 11/18/21 05:39 MPV 11.9 fL (7.4-10.4) H 11/18/21 05:39 Neut % (Auto) 89.2 % 11/18/21 05:39 Lymph % (Auto) 4.7 % 11/18/21 05:39 [place] % (Auto) 3.8 % 11/18/21 05:39 Eos % (Auto) 0.0 % 11/18/21 05:39 Baso % (Auto) 0.2 % 11/18/21 05:39 Neut # (Auto) 8.25 10^3/uL (1.8-7.7) H 11/18/21 05:39 Lymph # (Auto) 0.4 10^3/uL (0.8-4.8) L 11/18/21 05:39 [place] # (Auto) 0.4 10^3/uL (0.2-0.9) 11/18/21 05:39 Eos # (Auto) 0.0 10^3/uL (0.0-0.8) 11/18/21 05:39 Baso # (Auto) 0.0 10^3/uL (0.0-0.1) 11/18/21 05:39 Nucleated RBC % (auto) 0 % 11/18/21 05:39 Nucleated RBCs # 0.0 /100WBC 11/18/21 05:39 ESR 57 mm/hr (0-15) H 11/16/21 05:50 Fibrinogen 831 mg/dL (174-498) H 11/14/21 06:14 D-Dimer 1.44 ug/mIFEU (0-0.59) H 11/17/21 13:16 Sodium 139 mmol/L (136-145) 11/18/21 05:39 Potassium 4.5 mmol/L (3.5-5.1) 11/18/21 05:39 Chloride 101 mmol/L (98-107) 11/18/21 05:39 Carbon Dioxide 25 mmol/L (22-29) 11/18/21 05:39 Anion Gap 17.5 (5-19) 11/18/21 05:39 BUN 40 mg/dL (8-23) H 11/18/21 05:39 Creatinine 1.0 mg/dL (0.5-0.9) H 11/18/21 05:39 GFR Calculation Not Reportable 11/18/21 05:39 Glucose 229 mg/dL (65-115) H 11/18/21 05:39 POC Glucose 232 mg/dL (70-110) H 11/18/21 07:07 Estimat Average Glucose 140 11/18/21 05:39 Hemoglobin A1c 6.5 % (4.0-6.0) H 11/18/21 05:39 Calculated Osmolality 305 mOsm/kg (285-295) H 11/18/21 05:39 Calcium 9.4 mg/dL (8.5-10.5) 11/18/21 05:39 Magnesium 2.2 mg/dL (1.7-2.3) 11/13/21 05:05 Iron 63 ug/dL (37-145) 11/17/21 05:07 TIBC 161 mcg/dl 11/17/21 05:07 % Saturation 39.1 % (20-50) 11/17/21 05:07 Unsat Iron Binding 98 ug/dL (112-347) L 11/17/21 05:07 Total Bilirubin 0.4 mg/dL (0.15-1.2) 11/18/21 05:39 AST 34 U/L (0-32) H 11/18/21 05:39 ALT 233 U/L (0-33) H 11/18/21 05:39 Alkaline Phosphatase 106 IU/L (35-105) H 11/18/21 05:39 Lactate Dehydrogenase 317 U/L (135-214) H 11/16/21 05:50 Creatine Kinase 129 U/L (26-192) 11/14/21 06:14 CK-MB (CK-2) 2.9 ng/mL (0-5.34) 11/13/21 05:05 CK-MB (CK-2) Rel Index % (0.0-10.4) 11/13/21 05:05 Troponin T Baseline 72 ng/L (0-10) H 11/12/21 14:45 Troponin T 120 Minute 62.65 ng/L (0-10) H 11/12/21 17:43 Delta Troponin T -9.35 ABS# (0-10) L 11/12/21 17:43 Troponin T Hi Sens 6Hr 52.51 ng/L (0-10) H 11/12/21 20:32 Troponin T Hi Sens 6Hr Delta -19.49 ng/L (0-12) L 11/12/21 20:32 C-Reactive Protein 36.0 mg/L (0.0-4.9) H 11/18/21 05:39 NT-Pro-B Natriuret Pep 2935 pg/mL (0-125) H 11/17/21 05:07 Total Protein 6.2 g/dL (6.6-8.7) L 11/18/21 05:39 Albumin 3.1 g/dL (3.5-5.2) L 11/18/21 05:39 Globulin 3.1 g/dL (1.3-4.6) 11/18/21 05:39 Triglycerides 143 mg/dL (0-150) 11/18/21 05:39 Cholesterol 94 mg/dL (0-200) 11/18/21 05:39 LDL Cholesterol, Calc 51 mg/dL (50-129) 11/18/21 05:39 Total VLDL Cholesterol 29 mg/dL (0-30) 11/18/21 05:39 HDL Cholesterol 14 mg/dL (60-100) L 11/18/21 05:39 Cholesterol/HDL Ratio 6.71 mg/dL (0.0-4.40) H 11/18/21 05:39 Lipase 58 U/L (13-60) 11/12/21 14:45 Procalcitonin 0.12 ng/mL (0-0.5) 11/17/21 05:07 TSH 0.19 uIU/mL (0.27-4.20) L 11/17/21 05:07 Free T4 1.95 ng/dL (0.82-1.77) H 11/17/21 05:07 Free T3 1.1 PG/ML (2.0-4.4) L 11/17/21 05:07 Urine Color Yellow (Yellow) 11/12/21 16:15 Urine Appearance Hazy (CLEAR) A 11/12/21 16:15 Urine pH 5 (5-7) 11/12/21 16:15 Ur Specific [place] 1.025 (1.005-1.030) 11/12/21 16:15 Urine Protein 1+ (Negative) H 11/12/21 16:15 Urine Glucose (UA) 4+ (Normal) H 11/12/21 16:15 Urine Ketones 1+ (Negative) H 11/12/21 16:15 Urine Blood 2+ (Negative) H 11/12/21 16:15 Urine Nitrate Negative (Negative) 11/12/21 16:15 Urine Bilirubin 1+ (Negative) H 11/12/21 16:15 Urine Urobilinogen 4 mg/dL (Negative) H 11/12/21 16:15 Ur Leukocyte Esterase Negative (Negative) 11/12/21 16:15 Urine RBC 5-10 /hpf (0-2) H 11/12/21 16:15 Urine WBC 5-10 /hpf (0-5) H 11/12/21 16:15 Ur Squamous Epith Cells None /hpf (0-5) 11/12/21 16:15 Ur Transition Epith Cell None /hpf 11/12/21 16:15 Amorphous Sediment Not Reportable 11/12/21 16:15 Urine Bacteria 2+ /hpf (NONE) H 11/12/21 16:15 Hyaline Casts 10-15 /lpf H 11/12/21 16:15 Coarse Granular Casts 0-4 /lpf H 11/12/21 16:15 Coronavirus 229E (PCR) Not detected (NOT DETECT) 11/12/21 15:38 Hepatitis A IgM Ab Non-reactive (Nonreactive) 11/12/21 14:45 Hep Bs Antigen Non-reactive (Nonreactive) 11/12/21 14:45 Hep Bs Antibody 3.5 (11.5-1000) L 11/12/21 14:45 Hep B Core Total Ab Non-reactive (Nonreactive) 11/12/21 14:45 Hepatitis C Antibody Non-reactive (Nonreactive) 11/12/21 14:45 SARS-CoV-2 (PCR) Detected (NOT DETECT) A 11/12/21 15:38 Vitals Last Vital Signs Temp 98.1 F 11/18/21 08:00 Pulse 76 11/18/21 09:07 Resp 17 11/18/21 09:07 BP 110/72 11/18/21 08:00 Pulse Ox 91 11/18/21 11:05 Discharge Plan Discharge Patient Disposition: Home Condition: Stable Prescriptions: New levothyroxine 137 mcg Tablet 137 mcg PO QAM 30 Days Qty: 30 0RF fluticasone propion-salmeterol [Advair Diskus] 250-50 mcg/dose Blister With Device 1 puff inhalation BID.RESPIRATORY 14 Days Qty: 28 0RF diltiazem HCl 240 mg Capsule,Extended Release 24hr 240 mg PO DAILY 30 Days Qty: 30 0RF ascorbic acid (vitamin C) [Vitamin C] 500 mg Tablet 500 mg PO BID 14 Days Qty: 28 0RF benzonatate 100 mg Capsule 200 mg PO TID PRN (Reason: cough) Qty: 10 0RF zinc gluconate 50 mg Tablet 50 mg PO DAILY 14 Days Qty: 14 0RF dexamethasone 6 mg tablet 6 mg PO DAILY Qty: 7 0RF Spiriva with HandiHaler 18 mcg capsule, w/inhalation device 1 cap inhalation DAILY Qty: 14 0RF Rx Instructions: puncture 1 cap using device; one dose = 2 inhalations Continued aspirin [Adult Low Dose Aspirin] 81 mg tablet,delayed release (DR/EC) 81 mg PO DAILY@0800 0RF venlafaxine [Effexor XR] 150 mg capsule,extended release 24hr 150 mg PO DAILY Qty: 30 2RF amiodarone 200 mg tablet 200 mg PO DAILY@0800 Qty: 90 1RF Rx Instructions: Originally prescribed by Dr. Sampson but was needing pharmacy change. metoprolol tartrate 50 mg tablet 50 mg PO BID@0800,1999 90 Days Qty: 180 0RF escitalopram oxalate 20 mg tablet 20 mg PO DAILY 0RF Wetl-Ogel-Ehudl (vit C-biotin) 50 mg -1,250 mcg Tablet,Chewable 1 tab PO DAILY 0RF Gummies 400 mcg-35 mg- 25 mg-5 mg Tablet,Chewable 1 tab PO DAILY 0RF atorvastatin 20 mg tablet 20 mg PO DAILY 0RF zonisamide 100 mg capsule 400 mg PO DAILY 0RF pantoprazole 40 mg tablet,delayed release (DR/EC) 40 mg PO DAILY@08 0RF glimepiride 4 mg tablet 4 mg PO DAILY 0RF bumetanide 1 mg tablet 1 mg PO DAILY 0RF metformin 500 mg tablet extended release 24 hr 1,000 mg PO BID@08,20 0RF levetiracetam 750 mg tablet extended release 24 hr 750 mg PO DAILY 0RF Xarelto 20 mg tablet 20 mg PO DAILY 0RF Jardiance 25 mg tablet 25 mg PO DAILY 0RF Held lisinopril 20 mg tablet 20 mg PO DAILY 0RF Hold Instructions: Resume on 12/02/21. Discontinued diltiazem HCl 180 mg capsule,extended release 24hr 180 mg PO DAILY 0RF levothyroxine 150 mcg tablet 150 mcg PO QAM 0RF No Action (DME) BIPAP MACHINE Qty: 1 0RF Rx Instructions: As directed (DME) BIPAP MASK Qty: 1 2RF Rx Instructions: As directed (DME) BIPAP SUPPLIES Qty: 1 2RF Rx Instructions: As directed (DME) Easy Plus II Test Strip See Rx Instructions .ROUTE .MEDSUPPLY Qty: 50 3RF Rx Instructions: use one strip to check blood sugars two time daily (DME) blood-glucose meter [Easy Plus II Blood Glucose Met] [facility] See Rx Instructions .ROUTE .MEDSUPPLY Qty: 1 0RF Rx Instructions: use meter two times a day to check blood sugar Discharge Orders: Discharge Order (Routine); Ordered 11/18/21 Ordered By: Adams Joiner Referrals: Aretha Davies FNP [Primary Care Provider] - 2 weeks Discharge Diet: Advance as tolerated Discharge Activity: Resume usual activity Patient Instructions: COVID-19 (Coronavirus Disease 2019) (ED), Opioid Safety Activity Restrictions/Additional Instructions: Advised to take inhalation treatment with Advair and Spiriva daily for next 2 weeks Continue taking Xarelto leg before. Advised to continue working with incentive spirometry and flutter valve while at home. Advised to continue taking dexamethasone 6 mg for next 7 days. Advised to follow-up with his primary care provider within the next 4 to 7 days. Can take his COVID-19 vaccination in 3 months. Advised to continue following social distancing and isolation protocol for next 10 days. Advised to come back to the ER if fever of more than 101 Fahrenheit, more d ifficulty breathing than usual or requiring higher oxygen supplementation. Discharge Attestations Time Spent in Discharge Care*: greater than 30 min Specific Discharge Activities: educating patient, discussing with pcp/other providers, discussing with home health care case manager/social workers/dc planners, documenting/other paperwork and evaluating patient/reviewing data Status at Discharge: Cognitive status at discharge: cognitively intact , Behavioral status at discharge: cooperative , Functional status at discharge: uses cane/walker , Overall status at discharge: patient is back to baseline Quality Metrics Clinical Quality Measures [ No reported AMI, CVA or VTE this stay] Coding Level of Care Code Acute [facility] DC note Diagnoses Pneumonia due to COVID-19 virus U07.1; J12.82 Transaminitis R74.01 Atrial fibrillation I48.0 Atrial fibrillation type: paroxysmal Hypothyroidism E03.9 Hypothyroidism type: unspecified Hypertension I10 Hypertension type: essential hypertension Obstructive sleep apnea G47.33 Status post cardiac pacemaker procedure Z95.0 Type 2 diabetes mellitus E11.65 Diabetes mellitus assistant terminal manager insulin use: without assistant terminal manager use Diabetes mellitus complication status: with hyperglycemia 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
[2021-11-18 12:04] LABS: Glucose Point of Care 301 mg/dL (70-110)
--- NOTE | 2021-11-18 12:50 | USCV_ITS ---
Russel Gianluca Age: 75 Gender: F : 1945 Exam Date: 11/18/2021 06:37 Ordering Phys: Adams Joiner MD Technologist: ALLIE Exam Location: [facility] Indication: AFIB, COVID, HYPOXIA BP: 119 / 81 HR: 90 Rhythm: Sinus Technical Quality: Technically difficult study MEASUREMENTS (Male / Female) Normal Values 2D ECHO LV Diastolic Diameter PLAX 3.5 cm 4.2 - 5.9 / 3.9 - 5.3 cm LV Systolic Diameter PLAX 2.5 cm IVS Diastolic Thickness 1.4 cm 0.6 - 1.0 / 0.6 - 0.9 cm IVS Systolic Thickness 1.7 cm LVPW Diastolic Thickness 1.5 cm 0.6 - 1.0 / 0.6 - 0.9 cm LVPW Systolic Thickness 1.9 cm LVOT Diameter 2.0 cm LV Ejection Fraction 2D Teich 56.4 % LV Ejection Fraction MOD 2C 45.5 % LV Ejection Fraction 2C AL 50.1 % LA Diameter 3.4 cm Aorta at Sinotubular Diameter 2.5 cm M-MODE Aortic Annulus Diameter 3.0 cm LA Ao Ratio MM 1.0 MV E Point Septal Separation 0.5 cm DOPPLER AV Peak Velocity 76.0 cm/s LVOT Peak Velocity 52.0 cm/s AV Area Cont Eq vti 2.0 cm squared AV Area Cont Eq pk 2.2 cm squared MV Area PHT 4.4 cm squared MV E' Velocity 41.0 cm/s Mitral E to MV E' Ratio 13.8 Mitral E to LV E' Lateral Ratio 14.0 Mitral E to LV E' Septal Ratio 13.5 TR Peak Velocity 285.1 cm/s TR Peak Gradient 32.5 mmHg TR Mean Velocity 193.3 cm/s TR Mean Gradient 16.7 mmHg TR Velocity Time Integral 69.3 cm TV Peak E Velocity 47.0 cm/s Right Atrial Pressure 3.0 mmHg Pulmonary Artery Systolic Pressu 35.5 mmHg PV Peak Velocity 84.0 cm/s RV Acceleration Time 0.1 s RV Ejection Time 0.3 s RV AcT/ET 0.2 FINDINGS Left Ventricle Normal left ventricular size and systolic function, EF 65 %. Moderate left ventricular hypertrophy. Right Ventricle Normal right ventricular size and systolic function. Right Atrium Moderately increased right atrial size. Possible catheter tip in the right atrium Left Atrium Moderately dilated left atrium Mitral Valve Thickened mitral valve. Mild mitral valve regurgitation. Aortic Valve Trace aortic valve regurgitation. Tricuspid Valve Mild tricuspid valve regurgitation. Estimated pulmonary artery peak systolic pressure 26 mmHg Pulmonic Valve Pulmonic valve not well visualized. Pericardium No pericardial effusion. Aorta Normal aortic annulus size. CONCLUSIONS Normal left ventricular size and systolic function, EF 65 %. Segmental wall motion analysis difficult because of the atrial fibrillation Moderate left ventricular hypertrophy. Moderate biatrial enlargement. Thickened mitral valve. Mild mitral valve regurgitation. Trace aortic valve regurgitation. Mild tricuspid valve regurgitation. Estimated pulmonary artery peak systolic pressure 26 mmHg. There is no pericardial effusion. There are no intracardiac masses. Compared to the study from 06/05/2019, there may not be a significant change Dr Micah Coleman MD FACC (Electronically Signed) Final Date: 19 November 2021 05:59 S
--- NOTE | 2021-11-18 13:03 | PC.NURSE ---
Discharge Note Patient discharged to home via private vehicle accompanied by daughter. Discharge instructions reviewed with patient and/or player services representative. Mobile pharmacy medications and/or prescriptions provided. Belongings/home medications returned.
[2021-11-21 14:47] LABS: Levetiracetam Keppra 19.3 mcg/mL
== END 2021-11-18 13:42 | disposition home or self-care (01) | DRG 177 ==
LOC: ER 21:05 → ER IP 21:28 → MEDSURG 11-13 14:41
PROVIDERS: Family Medicine; Internal Medicine; Admitting Provider Internal Medicine; Emergency Provider Emergency Medicine; PCP Registered Nurse; Visit Provider Student in an Organized Health Care Education/Training Program
DX: U07.1 COVID-19 (principal); J12.82 Pneumonia due to coronavirus disease 2019; I50.32 Chronic diastolic (congestive) heart failure; M62.82 Rhabdomyolysis; Z99.81 Dependence on supplemental oxygen; I48.0 Paroxysmal atrial fibrillation; I11.0 Hypertensive heart disease with heart failure; F32.A Depression, unspecified; E11.9 Type 2 diabetes mellitus without complications; G40.409 Other generalized epilepsy and epileptic syndromes, not intractable, without status epilepticus; E03.9 Hypothyroidism, unspecified; G47.33 Obstructive sleep apnea (adult) (pediatric); I69.319 Unspecified symptoms and signs involving cognitive functions following cerebral infarction; Z87.891 Personal history of nicotine dependence; Z95.0 Presence of cardiac pacemaker; Z79.01 Long term (current) use of anticoagulants; Z79.84 Long term (current) use of oral hypoglycemic drugs; Z79.82 Long term (current) use of aspirin
CPT/HCPCS: 36415; 36416; 71045; 71275; 74177; 76705; 80053; 80061; 80177; 81001; 82550; 82553; 82962; 83036; 83540; 83550; 83615; 83690; 83735; 83880; 84145; 84439; 84443; 84481; 84484; 85025; 85378; 85384; 85651; 86140; 86705; 86706; 86709; 86803; 87040; 87086; 87340; 87635; 93005; 93306; 94640; 96365; 96366; 96367; 96372; 96375; 99285; J1100; J1815; J1953; J3490; J7030; Q9967

== ENCOUNTER 2021-12-02 20:31 | Emergency (ER) | payer MEDICARE, OTHER, SELFPAY ==
--- NOTE | 2021-12-02 22:15 | ECG_ITS ---
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 Measurements Intervals Dafter Rate: 94 P: DC: QRS: -1 QRSD: 98 T: 210 QT: 358 QTc: 448 Interpretive Statements ATRIAL FIBRILLATION VOLTAGE CRITERIA FOR LVH POSSIBLE ANTEROSEPTAL MYOCARDIAL INFARCTION , PROBABLY OLD ST DEVIATION AND MODERATE T-WAVE ABNORMALITY, CONSIDER LATERAL ISCHEMIA ST DEVIATION AND MODERATE T-WAVE ABNORMALITY, CONSIDER INFERIOR ISCHEMIA Compared to ECG 11/12/2021 20:05:22 Left ventricular hypertrophy now present T-wave abnormality now present Possible ischemia now present Sinus rhythm no longer present ST (T wave) deviation no longer present Myocardial infarct finding still present Electronically Signed On 12-03-2021 19:28:28 ELECTRICIAN UNDERGROUND by Saima Guzman M.D. [email or web address]
[2021-12-02 22:20] VITALS: BP 141/101; PULSE 102; RESP 18; TEMP 36.7; O2SAT 98; BMI 27.4
[2021-12-02 22:31] LABS: Basophils % 0.1 %; Eosinophils # 0.2 10^3/uL (0.0-0.8); Eosinophils % 1.5 %; Hematocrit 44.7 % (37.0-47.0); Hemoglobin 14.5 g/dL (11.5-15.3); Lymphocytes # 1.1 10^3/uL (0.8-4.8); Lymphocytes % 9.5 %; Mean Corpuscular HGB Conc 32.4 g/dL (30.0-36.0); Mean Corpuscular Hemoglobin 30.5 pg (28.0-34.0); Mean Corpuscular Volume 94.1 fl (81-99); Monocytes % 8.5 %; Neutrophils % 79.8 %; Nucleated Red Blood Cells % 0 %; Platelet Count 169 10^3/cmm (130-400); Red Blood Count 4.75 10^6/uL (4.1-5.3); Red Cell Distribution Width 13.7 % (12.1-15.1); White Blood Count 11.5 10^3/uL (4.0-10.0)
[2021-12-02 22:34] LABS: Mean Platelet Volume 13.6 fL (7.4-10.4)
[2021-12-02 22:42] VITALS: BP 133/92; PULSE 80; RESP 16; TEMP 36.8; O2SAT 95
[2021-12-02] MEDS: digoxin 250 mcg/ml INJ 2 mL IVP (22:43)
[2021-12-02] MEDS: metoprolol tartrate 1 mg/1 mL SDV 5 mL 5 MG IVP (22:43)
[2021-12-02] MEDS: metoprolol succinate ER (24 HR) 50 mg Tablet PO (22:43)
[2021-12-02 22:44] LABS: D Dimer 1.53 ug/mIFEU (0-0.59)
[2021-12-02 22:53] LABS: Alanine Aminotransferase 37 U/L (0-33); Albumin Level 3.3 g/dL (3.5-5.2); Alkaline Phosphatase 100 IU/L (35-105); Aspartate Amino Transferase 23 U/L (0-32); Blood Urea Nitrogen 46 mg/dL (8-23); Calcium 10.4 mg/dL (8.5-10.5); Carbon Dioxide 17 mmol/L (22-29); Chloride 98 mmol/L (98-107); Globulin 2.9 g/dL (1.3-4.6); Glucose 112 mg/dL (65-115); Osmolality Calculated 289 mOsm/kg (285-295); Sodium 133 mmol/L (136-145); Total Bilirubin 0.6 mg/dL (0.15-1.2); Total Protein 6.2 g/dL (6.6-8.7)
[2021-12-02 22:54] LABS: Troponin(5th) Baseline 38 ng/L (0-10)
[2021-12-02 22:55] LABS: Anion Gap 23.1 (5-19); Potassium 5.1 mmol/L (3.5-5.1)
--- NOTE | 2021-12-02 22:56 | ED_ITS ---
Documented by User: Bejnamin Sams MD 12/02/21 23:02 HPI - General Adult General: Chief complaint: Arrhythmia/Palpitations Stated complaint: GENERLIZED WEAKNESS Time Seen by Provider: 12/02/21 22:15 History of Present Illness: Patient is a 75-year-old female with history atrial fibrillation on amiodarone, diabetes, CAD and prior MIs presenting to emergency room with concerns for worsening palpitation. Patient has had intermittent palpitation for the last 3 to 4-month today patient noticed the palpitation has gotten significantly worse and called EMS. By the time EMS arrived, patient was noted to be tachycardic and in atrial fibrillation with heart rate in the 160s?170s. Patient complains of no chest pain. Denies any shortness of breath, fatigue, cough, runny nose, sore throat, abdominal pain, nausea/vomiting, melena or hematochezia. Onset: acute chronic Duration:ongoing Location:home Severity:moderate/severe Associated symptoms: Reports palpitations; Deny chest pain, dyspnea, nausea, rash or vomiting Review of Systems Const: Denies: fever(s) or chills Eyes: Denies: change in vision ENMT: Denies: mouth pain Card: Reports: palpitations; Denies: chest pain Resp: Denies: dyspnea or non-productive cough GI: Denies: abdominal pain, nausea, vomiting or diarrhea : Denies: dysuria Musc: Denies: extremity pain Skin/Breast: Denies: rash or new lesions Neuro: Denies: weakness in extremities Psych: Reports: other (Normal mood) Trung/Lymph: Denies: easy bruising PFSH ED PFSH: Medical History Atrial dysrhythmia Atrial fibrillation Atrial flutter CHF (congestive heart failure) 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, managed as type 2 Diastolic heart failure Drug-induced bradycardia Digoxin was discontinued along beta-alexandrea Generalized epilepsy Heart failure Hypertension Hypothyroidism -on levothyroxine Non-insulin dependent diabetes mellitus -A1c (12/2019): 8.3 -Accucheks, ISS, hypoglycemia precautions -consistent carb diet as tolerated -takes metformin at home, can resume on d/c Obstructive sleep apnea Paroxysmal A-fib Seizure Severe obstructive sleep apnea Sleep apnea Sleep apnea in adult Stroke due to embolism of left middle cerebral artery -prior hx of L MCA CVA in 05/2019; did not receive tPA -has been f/u with Dr. 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 Surgical History No pertinent past surgical history Status post cardiac pacemaker procedure Family History Sister Diabetes Father Heart disease Mother Heart disease Social History Smoking and tobacco status: former smoker Alcohol intake: never History of recent travel: No Physical Exam Const: COMMON NORMALS: alert HENMT: COMMON NORMALS: atraumatic HEAD & SCALP: atraumatic MOUTH: moist mucous membranes not abnormal Eye: COMMON NORMALS: EOMs intact bilaterally and conjunctivae normal CONJUNCTIVA: Yes conjunctivae normal Neck/C-Spine: COMMON NORMALS: full ROM and supple Resp: COMMON NORMALS: normal respiratory effort and clear to auscultation bilaterally AUSCULTATION: clear to auscultation bilaterally Cardio: RATE: tachycardic and Other (irregular irregular tachycardia) GI: COMMON NORMALS: Soft to palpation and non-tender PALPATION: Yes Soft to palpation Extremity: COMMON NORMALS: full ROM Neuro: SENSORIUM/ORIENTATION: Yes alert MOTOR EXAM: No Abnormal motor strength present and Other motor observations present (no focal motor deficits) Psych: COMMON NORMALS: speech normal SPEECH: Yes normal speech MOOD & AFFECT: Yes euthymic mood Course Vital Signs: Vital signs: Vital Signs Temperature 98.2 F 12/02/21 22:42 Pulse Rate 98 12/03/21 01:07 Respiratory Rate 18 12/03/21 01:07 Blood Pressure 154/79 12/03/21 01:07 Pulse Oximetry 96 12/03/21 01:07 [facility] - General Adult Medical Decision Making 75-year-old female with a history of atrial fibrillation on amiodarone, CHF, CAD, diabetes presenting to emergency room with concerns of acute on chronic worsening palpitations. On arrival, patient was noted to be tachycardic to the 130s to 140s. We did have any beds, EMS was with patient for 45 minutes. I have instructed EMS to give patient additional doses of medications for rate control. Total, EMS give patient 90mg of IV dilt, 1.5L of NS, 4g of magnesium, 1mg of ativan with improvement heart rate still low 110-120s. In addition, patient received metoprolol 5 mg and p.o. metoprolol 50 mg with improvement heart rate is less than 100. Workup: CBC, BMP, Troponin x 2, EKG x 2, dimer TSH/T4 Intervention: observation and telemetry Case signed out to Dr. Lozano pending lab evaluation and reassessment Lab Data : 12/02/21 22:21 12/02/21 22:21 Radiology Impressions Chest CTA 12/02/21 23:04 IMPRESSION: 1. Geographic ground-glass opacities with some crazy paving and some interstitial pattern consistent with continued aqjg-an-kutsovsp COVID-19 pneumonia versus other pneumonia. 2. Stable severe calcified coronary artery disease. 3. No pulmonary embolus or aortic dissection. Laboratory Results WBC 11.5 10^3/uL (4.0-10.0) H 12/02/21 22:21 RBC 4.75 10^6/uL (4.1-5.3) 12/02/21 22:21 Hgb 14.5 g/dL (11.5-15.3) 12/02/21 22:21 Hct 44.7 % (37.0-47.0) 12/02/21 22:21 MCV 94.1 fl (81-99) 12/02/21 22:21 MCH 30.5 pg (28.0-34.0) 12/02/21 22: MCHC 32.4 g/dL (30.0-36.0) 12/02/21 22:21 RDW 13.7 % (12.1-15.1) 12/02/21 22:21 Plt Count 169 10^3/cmm (130-400) 12/02/21 22:21 MPV 13.6 fL (7.4-10.4) H 12/02/21 22:21 Neut % (Auto) 79.8 % 12/02/21 22:21 Lymph % (Auto) 9.5 % 12/02/21 22:21 [place] % (Auto) 8.5 % 12/02/21 22:21 Eos % (Auto) 1.5 % 02/08/22 22:21 Baso % (Auto) 0.1 % 12/02/21 22:21 Neut # (Auto) 9.20 10^3/uL (1.8-7.7) H 12/02/21 22:21 Lymph # (Auto) 1.1 10^3/uL (0.8-4.8) 12/02/21 22:21 [place] # (Auto) 1.0 10^3/uL (0.2-0.9) H 12/02/21 22:21 Eos # (Auto) 0.2 10^3/uL (0.0-0.8) 12/02/21 22:21 Baso # (Auto) 0.0 10^3/uL (0.0-0.1) 12/02/21 22:21 Nucleated RBC % (auto) 0 % 12/02/21 22: Nucleated RBCs # 0.0 /100WBC 12/02/21 22:21 D-Dimer 1.53 ug/mIFEU (0-0.59) H 12/02/21 22:21 Sodium 133 mmol/L (136-145) L 12/02/21 22:21 Potassium 5.1 mmol/L (3.5-5.1) 12/02/21 22:21 Chloride 98 mmol/L (98-107) 12/02/21 22:21 Carbon Dioxide 17 mmol/L (22-29) L 12/02/21 22:21 Anion Gap 23.1 (5-19) H 12/02/21 22:21 BUN 46 mg/dL (8-23) H 12/02/21 22:21 Creatinine 1.0 mg/dL (0.5-0.9) H 12/02/21 22:21 GFR Calculation Not Reportable 12/02/21 22:21 Glucose 112 mg/dL (65-115) 12/02/21 22:21 Calculated Osmolality 289 mOsm/kg (285-295) 12/02/21 22:21 Calcium 10.4 mg/dL (8.5-10.5) 12/02/21 22:21 Total Bilirubin 0.6 mg/dL (0.15-1.2) 12/02/21 22:21 AST 23 U/L (0-32) 02/08/22 22:21 ALT 37 U/L (0-33) H 12/02/21 22:21 Alkaline Phosphatase 100 IU/L (35-105) 12/02/21 22:21 Troponin T Baseline 38 ng/L (0-10) H 12/02/21 22:21 Total Protein 6.2 g/dL (6.6-8.7) L 12/02/21 22:21 Albumin 3.3 g/dL (3.5-5.2) L 12/02/21 22:21 Globulin 2.9 g/dL (1.3-4.6) 12/02/21 22:21 TSH 0.40 uIU/mL (0.27-4.20) 12/02/21 22:21 Critical Care Time Critical Care Time: Critical Care Time: Yes Total Critical Care Time: 35 Attestation: The high probability of a clinically significant, sudden or life threatening deterioration of the patient's Cardiovascular system(s) required my full and direct attention, intervention and personal management. The critical care time is as shown. This time is in addition to time spent performing any reported procedures but includes the following: [x] Data and vital sign review and interpretation [x] Patient assessment, examination and intervention [x] Documentation [x] Medication orders and management Discharge Plan Discharge Patient Disposition: Home Clinical Impression: Atrial fibrillation, COVID-19 Condition: Stable Prescriptions: No Action aspirin [Adult Low Dose Aspirin] 81 mg tablet,delayed release (DR/EC) 81 mg PO DAILY@0800 0RF venlafaxine [Effexor XR] 150 mg capsule,extended release 24hr 150 mg PO DAILY Qty: 30 2RF (DME) BIPAP MACHINE Qty: 1 0RF Rx Instructions: As directed (DME) BIPAP MASK Qty: 1 2RF Rx Instructions: As directed (DME) BIPAP SUPPLIES Qty: 1 2RF Rx Instructions: As directed (DME) Easy Plus II Test Strip See Rx Instructions .ROUTE .MEDSUPPLY Qty: 50 3RF Rx Instructions: use one strip to check blood sugars two time daily amiodarone 200 mg tablet 200 mg PO DAILY@0800 Qty: 90 1RF Rx Instructions: Originally prescribed by Dr. Sampson but was needing pharmacy change. metoprolol tartrate 50 mg tablet 50 mg PO BID@0800,1999 90 Days Qty: 180 0RF (DME) blood-glucose meter [Easy Plus II Blood Glucose Met] [facility] [place] See Rx Instructions .ROUTE .MEDSUPPLY Qty: 1 0RF Rx Instructions: use meter two times a day to check blood sugar escitalopram oxalate 20 mg tablet 20 mg PO DAILY 0RF Vsob-Dfht-Hderr (vit C-biotin) 50 mg -1,250 mcg Tablet,Chewable 1 tab PO DAILY 0RF Gummies 400 mcg-35 mg- 25 mg-5 mg Tablet,Chewable 1 tab PO DAILY 0RF atorvastatin 20 mg tablet 20 mg PO DAILY 0RF lisinopril 20 mg tablet 20 mg PO DAILY 0RF Hold Instructions: Resume on 12/02/21. zonisamide 100 mg capsule 400 mg PO DAILY 0RF pantoprazole 40 mg tablet,delayed release (DR/EC) 40 mg PO DAILY@08 0RF glimepiride 4 mg tablet 4 mg PO DAILY 0RF bumetanide 1 mg tablet 1 mg PO DAILY 0RF metformin 500 mg tablet extended release 24 hr 1,000 mg PO BID@08,20 0RF levetiracetam 750 mg tablet extended release 24 hr 750 mg PO DAILY 0RF Xarelto 20 mg tablet 20 mg PO DAILY 0RF Jardiance 25 mg tablet 25 mg PO DAILY 0RF levothyroxine 137 mcg Tablet 137 mcg PO QAM 30 Days Qty: 30 0RF diltiazem HCl 240 mg Capsule,Extended Release 24hr 240 mg PO DAILY 30 Days Qty: 30 0RF benzonatate 100 mg Capsule 200 mg PO TID PRN (Reason: cough) Qty: 10 0RF dexamethasone 6 mg tablet 6 mg PO DAILY Qty: 7 0RF Spiriva with HandiHaler 18 mcg capsule, w/inhalation device 1 cap inhalation DAILY Qty: 14 0RF Rx Instructions: puncture 1 cap using device; one dose = 2 inhalations Discharge Orders: Discharge ED (Routine); Ordered 12/03/21 Ordered By: Merlyn Lozano Referrals: Aretha Davies FNP [Primary Care Provider] - 1-3 days Discharge Diet: Advance as tolerated Discharge Activity: Resume usual activity Patient Instructions: A-fib (Atrial Fibrillation) (ED), COVID-19 (Coronavirus Disease 2019) (ED) Coding Level of Care Code ED Glass Sagger for Chg Fwd Exam Comprehensive Documented by User: Merlyn Lozano MD 12/03/21 01:26 HPI - General Adult General: Chief complaint: Arrhythmia/Palpitations Stated complaint: GENERLIZED WEAKNESS Time Seen by Provider: 12/02/21 22:15 PFSH ED PFSH: Medical History Atrial dysrhythmia Atrial fibrillation Atrial flutter CHF (congestive heart failure) 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, managed as type 2 Diastolic heart failure Drug-induced bradycardia Digoxin was discontinued along beta-alexandrea Generalized epilepsy Heart failure Hypertension Hypothyroidism -on levothyroxine Non-insulin dependent diabetes mellitus -A1c (12/2019): 8.3 -Accucheks, ISS, hypoglycemia precautions -consistent carb diet as tolerated -takes metformin at home, can resume on d/c Obstructive sleep apnea Paroxysmal A-fib Seizure Severe obstructive sleep apnea Sleep apnea Sleep apnea in adult Stroke due to embolism of left middle cerebral artery -prior hx of L MCA CVA in 05/2019; did not receive tPA -has been f/u with Dr. 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 Surgical History No pertinent past surgical history Status post cardiac pacemaker procedure Family History Sister Diabetes Father Heart disease Mother Heart disease Social History Smoking and tobacco status: former smoker Alcohol intake: never History of recent travel: No Course Vital Signs: Vital signs: Vital Signs Temperature 98.2 F 12/02/21 22:42 Pulse Rate 98 12/03/21 01:07 Respiratory Rate 18 12/03/21 01:07 Blood Pressure 154/79 12/03/21 01:07 Pulse Oximetry 96 12/03/21 01:07 [facility] - General Adult Medical Decision Making 75-year-old female with a history of atrial fibrillation on amiodarone, CHF, CAD, diabetes presenting to emergency room with concerns of acute on chronic worsening palpitations. On arrival, patient was noted to be tachycardic to the 130s to 140s. We did have any beds, EMS was with patient for 45 minutes. I have instructed EMS to give patient additional doses of medications for rate control. Total, EMS give patient 90mg of IV dilt, 1.5L of NS, 4g of magnesium, 1mg of ativan with improvement heart rate still low 110-120s. In addition, patient received metoprolol 5 mg and p.o. metoprolol 50 mg with improvement heart rate is less than 100. Workup: CBC, BMP, Troponin x 2, EKG x 2, dimer TSH/T4 Intervention: observation and telemetry Patient presents here with A. fib with RVR she does have a history of A. fib heart rates controlled now is in the 90s her initial troponins is at her baseline she feels much improved CT showed changes consistent with Covid she did have Covid 2 weeks ago likely post Covid pneumonitis no signs of pneumonia she is satting 97% on her baseline 3 L of oxygen she stable for discharge is to follow-up with PCP and return if worsening. Case signed out to Dr. Lozano pending lab evaluation and reassessment Lab Data : 12/02/21 22:21 12/02/21 22:21 Radiology Impressions Chest CTA 12/02/21 23:04 IMPRESSION: 1. Geographic ground-glass opacities with some crazy paving and some interstitial pattern consistent with continued yyra-cp-clpqropi COVID-19 pneumonia versus other pneumonia. 2. Stable severe calcified coronary artery disease. 3. No pulmonary embolus or aortic dissection. Laboratory Results WBC 11.5 10^3/uL (4.0-10.0) H 12/02/21 22:21 RBC 4.75 10^6/uL (4.1-5.3) 12/02/21 22:21 Hgb 14.5 g/dL (11.5-15.3) 12/02/21 22:21 Hct 44.7 % (37.0-47.0) 12/02/21 22:21 MCV 94.1 fl (81-99) 12/02/21 22:21 MCH 30.5 pg (28.0-34.0) 12/02/21 22: MCHC 32.4 g/dL (30.0-36.0) 12/02/21 22:21 RDW 13.7 % (12.1-15.1) 12/02/21 22:21 Plt Count 169 10^3/cmm (130-400) 12/02/21 22:21 MPV 13.6 fL (7.4-10.4) H 12/02/21 22:21 Neut % (Auto) 79.8 % 12/02/21 22:21 Lymph % (Auto) 9.5 % 12/02/21 22: [place] % (Auto) 8.5 % 12/02/21 22: Eos % (Auto) 1.5 % 12/02/21 22: Baso % (Auto) 0.1 % 12/02/21 22: Neut # (Auto) 9.20 10^3/uL (1.8-7.7) H 12/02/21 22:21 Lymph # (Auto) 1.1 10^3/uL (0.8-4.8) 12/02/21 22:21 [place] # (Auto) 1.0 10^3/uL (0.2-0.9) H 12/02/21 22:21 Eos # (Auto) 0.2 10^3/uL (0.0-0.8) 12/02/21 22:21 Baso # (Auto) 0.0 10^3/uL (0.0-0.1) 12/02/21: Nucleated RBC % (auto) 0 % 12/02/21 22: Nucleated RBCs # 0.0 /100WBC 12/02/21 22:21 D-Dimer 1.53 ug/mIFEU (0-0.59) H 12/02/21 22:21 Sodium 133 mmol/L (136-145) L 12/02/21 22:21 Potassium 5.1 mmol/L (3.5-5.1) 12/02/21 22:21 Chloride 98 mmol/L (98-107) 12/02/21 22:21 Carbon Dioxide 17 mmol/L (22-29) L 12/02/21 22:21 Anion Gap 23.1 (5-19) H 12/02/21 22:21 BUN 46 mg/dL (8-23) H 12/02/21 22:21 Creatinine 1.0 mg/dL (0.5-0.9) H 12/02/21 22:21 GFR Calculation Not Reportable 12/02/21 22:21 Glucose 112 mg/dL (65-115) 12/02/21 22:21 Calculated Osmolality 289 mOsm/kg (285-295) 12/02/21 22:21 Calcium 10.4 mg/dL (8.5-10.5) 12/02/21 22:21 Total Bilirubin 0.6 mg/dL (0.15-1.2) 12/02/21 22:21 AST 23 U/L (0-32) 12/02/21 22:21 ALT 37 U/L (0-33) H 12/02/21 22:21 Alkaline Phosphatase 100 IU/L (35-105) 12/02/21 22:21 Troponin T Baseline 38 ng/L (0-10) H 12/02/21 22:21 Total Protein 6.2 g/dL (6.6-8.7) L 12/02/21 22:21 Albumin 3.3 g/dL (3.5-5.2) L 12/02/21 22:21 Globulin 2.9 g/dL (1.3-4.6) 12/02/21 22:21 TSH 0.40 uIU/mL (0.27-4.20) 12/02/21 22:21 Discharge Plan Discharge Patient Disposition: Home Clinical Impression: Atrial fibrillation, COVID-19 Condition: Stable Prescriptions: No Action aspirin [Adult Low Dose Aspirin] 81 mg tablet,delayed release (DR/EC) 81 mg PO DAILY@0800 0RF venlafaxine [Effexor XR] 150 mg capsule,extended release 24hr 150 mg PO DAILY Qty: 30 2RF (DME) BIPAP MACHINE Qty: 1 0RF Rx Instructions: As directed (DME) BIPAP MASK Qty: 1 2RF Rx Instructions: As directed (DME) BIPAP SUPPLIES Qty: 1 2RF Rx Instructions: As directed (DME) Easy Plus II Test Strip See Rx Instructions .ROUTE .MEDSUPPLY Qty: 50 3RF Rx Instructions: use one strip to check blood sugars two time daily amiodarone 200 mg tablet 200 mg PO DAILY@0800 Qty: 90 1RF Rx Instructions: Originally prescribed by Dr. Sampson but was needing pharmacy change. metoprolol tartrate 50 mg tablet 50 mg PO BID@0800,1999 90 Days Qty: 180 0RF (DME) blood-glucose meter [Easy Plus II Blood Glucose Met] [facility] [place] See Rx Instructions .ROUTE .MEDSUPPLY Qty: 1 0RF Rx Instructions: use meter two times a day to check blood sugar escitalopram oxalate 20 mg tablet 20 mg PO DAILY 0RF Hynr-Basg-Hpcmx (vit C-biotin) 50 mg -1,250 mcg Tablet,Chewable 1 tab PO DAILY 0RF Gummies 400 mcg-35 mg- 25 mg-5 mg Tablet,Chewable 1 tab PO DAILY 0RF atorvastatin 20 mg tablet 20 mg PO DAILY 0RF lisinopril 20 mg tablet 20 mg PO DAILY 0RF Hold Instructions: Resume on 12/02/21. zonisamide 100 mg capsule 400 mg PO DAILY 0RF pantoprazole 40 mg tablet,delayed release (DR/EC) 40 mg PO DAILY@08 0RF glimepiride 4 mg tablet 4 mg PO DAILY 0RF bumetanide 1 mg tablet 1 mg PO DAILY 0RF metformin 500 mg tablet extended release 24 hr 1,000 mg PO BID@08,20 0RF levetiracetam 750 mg tablet extended release 24 hr 750 mg PO DAILY 0RF Xarelto 20 mg tablet 20 mg PO DAILY 0RF Jardiance 25 mg tablet 25 mg PO DAILY 0RF levothyroxine 137 mcg Tablet 137 mcg PO QAM 30 Days Qty: 30 0RF diltiazem HCl 240 mg Capsule,Extended Release 24hr 240 mg PO DAILY 30 Days Qty: 30 0RF benzonatate 100 mg Capsule 200 mg PO TID PRN (Reason: cough) Qty: 10 0RF dexamethasone 6 mg tablet 6 mg PO DAILY Qty: 7 0RF Spiriva with HandiHaler 18 mcg capsule, w/inhalation device 1 cap inhalation DAILY Qty: 14 0RF Rx Instructions: puncture 1 cap using device; one dose = 2 inhalations Discharge Orders: Discharge ED (Routine); Ordered 12/03/21 Ordered By: Merlyn Lozano Referrals: Keke,Laurica, MACHINERY MOVER [Primary Care Provider] - 1-3 days Discharge Diet: Advance as tolerated Discharge Activity: Resume usual activity Patient Instructions: A-fib (Atrial Fibrillation) (ED), COVID-19 (Coronavirus Disease 2019) (ED) Coding Level of Care Code ED Glass Sagger for Morgan Fwd Exam Comprehensive
--- NOTE | 2021-12-02 23:04 | CTR_ITS ---
PROCEDURE INFORMATION: Exam: CTA Chest With Contrast Exam date and time: 12/02/2021 11:04 PM Age: 75 years old Clinical indication: Pain and abnormal findings; Abnormal diagnostic tests; Elevated d-dimer; Shortness of breath; Other: Palpitations. ; Prior surgery; Surgery type: Pacemaker; Patient HX: C/O palpitations with SOB. Elevated d dimer. ; Additional info: Eval pe TECHNIQUE: Imaging protocol: Computed tomographic angiography of the chest with contrast. 3D rendering (Not supervised by radiologist): MIP and/or 3D reconstructed images were created by the technologist. Radiation optimization: All CT scans at this facility use at least one of these dose optimization techniques: automated exposure control; mA and/or kV adjustment per patient size (includes targeted exams where dose is matched to clinical indication); or iterative reconstruction. Contrast material: VISI 320; Contrast volume: 63 ml; Contrast route: INTRAVENOUS (IV); COMPARISON: CT angio chest PE protcl [id number] 11/12/2021 5:07 PM RADIATION DOSE METRICS: Total DLP (mGy-cm): 523.91 FINDINGS: Tubes, catheters and devices: Stable left pacemaker. Pulmonary arteries: No pulmonary embolus or aortic dissection. Aorta: Calcification of the thoracic aorta and/or great vessels consistent with atherosclerotic vessel disease. Lungs: Geographic ground-glass opacities with some crazy paving and some interstitial pattern consistent with continued yuwa-pc-orjqvkxv COVID-19 pneumonia versus other pneumonia. Pleural spaces: Unremarkable. No pneumothorax. No pleural effusion. Heart: Stable severe calcified coronary artery disease. Lymph nodes: Calcified left hilar nodes and/or mediastinal nodes and/or lung granulomas consistent with old granulomatous disease. Bones/joints: Unremarkable. No acute fracture. Soft tissues: Unremarkable. CT/CT angio chest PE protcl [id number] IMPRESSION: 1. Geographic ground-glass opacities with some crazy paving and some interstitial pattern consistent with continued djwb-kk-tqnmpams COVID-19 pneumonia versus other pneumonia. 2. Stable severe calcified coronary artery disease. 3. No pulmonary embolus or aortic dissection.
[2021-12-02] MEDS: iodixanol 320 mg/mL 100mL Btl IV (23:25)
[2021-12-03 01:07] VITALS: BP 154/79; PULSE 88; PULSE 98; RESP 17; RESP 18; O2SAT 96; O2SAT 97
[2021-12-03 21:48] LABS: Free T4 Free Thyroxine 2.01 ng/dL (0.82-1.77)
== END 2021-12-03 01:12 | disposition home or self-care (01) ==
PROVIDERS: Emergency Medicine; Emergency Provider Emergency Medicine; PCP Registered Nurse
DX: I48.91 Unspecified atrial fibrillation (principal); U07.1 COVID-19; Z79.82 Long term (current) use of aspirin; Z79.84 Long term (current) use of oral hypoglycemic drugs; I11.0 Hypertensive heart disease with heart failure; I50.30 Unspecified diastolic (congestive) heart failure; E13.9 Other specified diabetes mellitus without complications; Z86.73 Personal history of transient ischemic attack (TIA), and cerebral infarction without residual deficits; Z87.891 Personal history of nicotine dependence
CPT/HCPCS: 71275; 80048; 80053; 84439; 84443; 84484; 85025; 85378; 93005; 96374; 96375; 99284; J1160; J3490; Q9967

== ENCOUNTER 2021-12-07 18:58 | Emergency (ER) | payer MEDICARE, OTHER, SELFPAY ==
[2021-12-07 18:59] VITALS: BP 103/71; PULSE 88; RESP 18; TEMP 36.5; O2SAT 94; BMI 25.8
--- NOTE | 2021-12-07 19:30 | CTR_ITS ---
PROCEDURE INFORMATION: Exam: CT Head Without Contrast Exam date and time: 12/07/2021 7:30 PM Age: 75 years old Clinical indication: Other: Weakness TECHNIQUE: Imaging protocol: Computed tomography of the head without contrast. Radiation optimization: All CT scans at this facility use at least one of these dose optimization techniques: automated exposure control; mA and/or kV adjustment per patient size (includes targeted exams where dose is matched to clinical indication); or iterative reconstruction. COMPARISON: CT head wo con* [id number] 10/11/2020 12:33 PM RADIATION DOSE METRICS: Total DLP (mGy-cm): 813.78 FINDINGS: There is mild generalized atrophy. There are mild areas of decreased attenuation in the periventricular white matter which is nonspecific but likely relates to small vessel ischemic change. There is encephalomalacia involving the left temporoparietal lobe consistent with old infarct. There is also encephalomalacia involving the right parietal lobe. There is an old infarct involving the right cerebellar hemisphere. Findings appear similar to September 2020. There is no evidence for acute infarct. There is some calcification near the roof of the 3rd ventricle which could be related to a colloid cyst. It appears unchanged as well.. There is no hemorrhage. There are no extra-axial fluid collections. There is no midline shift. The skull is intact. The visualized paranasal sinuses are well aerated. There is atherosclerotic change of the cavernous carotid arteries. CT/CT head wo con* [id number] IMPRESSION: 1. Old infarcts as described. 2. Some calcification near the roof of the 3rd ventricle which may represent a colloid cyst. It appears unchanged. 3. No evidence for acute infarct, mass or hemorrhage. The
--- NOTE | 2021-12-07 19:30 | XRR_ITS ---
PROCEDURE INFORMATION: Exam: XR Chest Exam date and time: 12/07/2021 7:30 PM Age: 75 years old Clinical indication: Dyspnea; Prior surgery; Surgery date: 6+ months; Surgery type: SOB TECHNIQUE: Imaging protocol: XR of the chest. Views: 1 view. COMPARISON: CR XR chest 1V portable [id number] 11/18/2021 5:30 AM FINDINGS: The lungs are clear of infiltrate. There is some scarring within the right upper lobe. There is some linear atelectasis in the left mid lung. There are no pleural effusions or pneumothorax. The heart size and pulmonary vascularity are normal. Dual lead pacemaker remains in place. XR/XR chest 1V portable [id number] IMPRESSION: No acute infiltrates.
--- NOTE | 2021-12-07 19:32 | ECG_ITS ---
[facility] Test Date: 2021-12-07 Pat Name: Gianluca Goode Department: Room: Gender: Female Weathercaster: : 1945 Requested By: Pablo Chan Order Number: [id number] Jake MD: Bo Drummond M.D. Measurements Intervals [place] Rate: 97 P: RI: QRS: 14 QRSD: 109 T: 0 QT: 389 QTc: 495 Interpretive Statements ATRIAL FIBRILLATION NONSPECIFIC ST & T-WAVE ABNORMALITY Compared to ECG 12/02/2021 22:23:40 Left ventricular hypertrophy no longer present Myocardial infarct finding no longer present Possible ischemia no longer present T-wave abnormality still present Electronically Signed On 12-08-2021 8:49:52 BUSINESS OBJECTS ANALYST by Bo Drummond M.D. [email or web address]
[2021-12-07 19:38] LABS: Basophils % 0.2 %; Eosinophils # 0.3 10^3/uL (0.0-0.8); Eosinophils % 2.8 %; Hematocrit 45.8 % (37.0-47.0); Hemoglobin 14.9 g/dL (11.5-15.3); Lymphocytes % 9.8 %; Mean Corpuscular HGB Conc 32.5 g/dL (30.0-36.0); Mean Corpuscular Hemoglobin 30.8 pg (28.0-34.0); Mean Corpuscular Volume 94.8 fl (81-99); Mean Platelet Volume 12.4 fL (7.4-10.4); Monocytes # 0.8 10^3/uL (0.2-0.9); Monocytes % 8.5 %; Neutrophils # 7.58 10^3/uL (1.8-7.7); Nucleated Red Blood Cells % 0 %; Platelet Count 214 10^3/cmm (130-400); Red Blood Count 4.83 10^6/uL (4.1-5.3); Red Cell Distribution Width 14.1 % (12.1-15.1); White Blood Count 9.7 10^3/uL (4.0-10.0)
--- NOTE | 2021-12-07 19:39 | ED_ITS ---
HPI - Weakness General: Chief complaint: Weakness Stated complaint: WEAKNESS Time Seen by Provider: 12/07/21 19:05 Source: patient History of Present Illness: 75-year-old female with a history of diabetes, atrial fibrillation, and recent COVID-19. She presents with progressive generalized weakness at home. She says she has no energy. She uses home oxyge n, at 3 to 4 L, but is still short of breath. She has had some vomiting as well. She has trouble taking her medication. She denies fever, but states she gets hot and cold. She has not been coughing significantly. Complaint: generalized weakness Onset (ago): day(s) Duration: constant and progressively worsening Location: generalized Migration: none Severity: moderate Quality: other Relieving factors: none Exacerbating factors: exertion Context: recent illness Associated symptoms: Reports chills, confusion (mild), decreased appetite, nausea, short of breath and vomiting; Denies chest pain, fever(s) or headache(s) Review of Systems Const: Reports: chills; Denies: fever(s) Eyes: Reports: blurry vision (at times) Card: Denies: chest pain Resp: Reports: dyspnea; Denies: productive cough or non-productive cough GI: Reports: nausea and vomiting Neuro: Reports: confusion (mild); Denies: headache(s) PFSH ED PFSH: Medical History Atrial dysrhythmia Atrial fibrillation Atrial flutter CHF (congestive heart failure) 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, managed as type 2 Diastolic heart failure Drug-induced bradycardia Digoxin was discontinued along beta-alexandrea Generalized epilepsy Heart failure Hypertension Hypothyroidism -on levothyroxine Non-insulin dependent diabetes mellitus -A1c (12/2019): 8.3 -Accucheks, ISS, hypoglycemia precautions -consistent carb diet as tolerated -takes metformin at home, can resume on d/c Obstructive sleep apnea Paroxysmal A-fib Seizure Severe obstructive sleep apnea Sleep apnea Sleep apnea in adult Stroke due to embolism of left middle cerebral artery -prior hx of L MCA CVA in 05/2019; did not receive tPA -has been f/u with Dr. 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 Surgical History No pertinent past surgical history Status post cardiac pacemaker procedure Family History Sister Diabetes Father Heart disease Mother Heart disease Social History Smoking and tobacco status: former smoker Alcohol intake: never History of recent travel: No Physical Exam Const: GENERAL APPEARANCE: cooperative, lethargic, ill appearing and frail appearing ORIENTATION/CONSCIOUSNESS: Yes lethargic HENMT: COMMON NORMALS: normocephalic, atraumatic and Normal external nose present HEAD & SCALP: normocephalic and atraumatic NOSE: Normal external nose present and Normal nares present MOUTH: Abnormal oral and palatal mucosa present (dry) Eye: COMMON NORMALS: Equal, round and reactive pupils present and EOMs intact bilaterally SCLERA: scleral abnormal Laterality of scleral abnormality: positive bilateral scleral icterus PUPIL: Yes Equal, round and reactive p upils present Chest: COMMONS NORMALS: normal inspection of the chest Resp: COMMON NORMALS: normal respiratory effort, No use of accessory muscles and clear to auscultation bilaterally AUSCULTATION: clear to auscultation bilaterally and diminished lung sounds Cardio: COMMON NORMALS: regular rate RATE: regular rate RHYTHM: abnormal rhythm irregularly irregular GI: COMMON NORMALS: Normal to inspection, nondistended, normoactive bowel sounds present INSPECTION: Yes abdominal distension PALPATION: Yes Tenderness to palpation present (GI) Details: LUQ Extremity: COMMON NORMALS: no pedal edema Neuro: SENSORIUM/ORIENTATION: Yes lethargic Psych: ATTITUDE: Yes calm SPEECH: Yes minimal Course Vital Signs: Vital signs: Vital Signs Temperature 97.7 F 12/07/21 18:59 Pulse Rate 88 12/07/21 18:59 Respiratory Rate 18 12/07/21 18:59 Blood Pressure 103/71 12/07/21 18:59 Pulse Oximetry 94 12/07/21 18:59 MDM - Weakness Medical Decision Making 75-year-old female presents with generalized weakness and lethargy. She is afebrile. Vitals are normal. She is not hypoxic on her home O2 setting. White blood cell count is 9.7. Blood sugar found to be 39 on serum testing. Increase to 200 after D50. Her creatinine is 0.9. She has a urinary tract infection by urinalysis. She has received Rocephin for this here. She will be allowed home on antibiotics for UTI, and to stop her glimepiride for the next 24 hours. Lab Data : 12/07/21 19:09 12/07/21 19: Radiology Impressions Chest X-Ray 12/07/21: IMPRESSION: No acute infiltrates. Head CT 12/07/21:30 IMPRESSION: 1. Old infarcts as described. 2. Some calcification near the roof of the 3rd ventricle which may represent a colloid cyst. It appears unchanged. 3. No evidence for acute infarct, mass or hemorrhage. The Laboratory Results WBC 9.7 10^3/uL (4.0-10.0) 12/07/21 19: RBC 4.83 10^6/uL (4.1-5.3) 12/07/21 19: Hgb 14.9 g/dL (11.5-15.3) 12/07/21 19: Hct 45.8 % (37.0-47.0) 12/07/21 19: MCV 94.8 fl (81-99) 12/07/21 19: MCH 30.8 pg (28.0-34.0) 12/07/21 19: MCHC 32.5 g/dL (30.0-36.0) 12/07/21 19: RDW 14.1 % (12.1-15.1) 12/07/21 19: Plt Count 214 10^3/cmm (130-400) 12/07/21 19: MPV 12.4 fL (7.4-10.4) H 12/07/21 19: Neut % (Auto) 78.0 % 12/07/21 19: Lymph % (Auto) 9.8 % 12/07/21 19: [place] % (Auto) 8.5 % 12/07/21 19: Eos % (Auto) 2.8 % 12/07/21 19: Baso % (Auto) 0.2 % 12/07/21 19: Neut # (Auto) 7.58 10^3/uL (1.8-7.7) 12/07/21 19:09 Lymph # (Auto) 1.0 10^3/uL (0.8-4.8) 12/07/21 19:09 [place] # (Auto) 0.8 10^3/uL (0.2-0.9) 12/07/21 19:09 Eos # (Auto) 0.3 10^3/uL (0.0-0.8) 12/07/21 19:09 Baso # (Auto) 0.0 10^3/uL (0.0-0.1) 12/07/21 19:09 Nucleated RBC % (auto) 0 % 12/07/21 19:09 Nucleated RBCs # 0.0 /100WBC 12/07/21 19:09 PT 23.70 SECONDS (12.1-14.9) H 12/07/21 19:09 INR 2.07 (0.8-1.2) H 12/07/21 19:09 APTT 37.4 SECONDS (23.9-36.7) H 12/07/21 19:09 Specimen Type Arterial 12/07/21 19:41 Sample Site Radial, left 12/07/21 19:41 ABG pH 7.45 (7.35-7.45) 12/07/21 19:41 ABG pCO2 38.3 mmHg (35-45) 12/07/21 19:41 ABG pO2 92.5 mmHg (80.0-100.0) 12/07/21 19:41 ABG HCO3 26.6 mmol/L (22-26) H 12/07/21 19:41 ABG Base Excess 2.6 mmol/L (-2.0-2.0) H 12/07/21 19:41 Bk Test N/a 12/07/21 19:41 Hematocrit 41.9 % (37-47) 12/07/21 19:41 O2 Delivery Device Nc 12/07/21 19:41 O2 Liters/Min 2.0 % 12/07/21 19:41 FiO2 0.0 % 12/07/21 19:41 [address] Light Repairer Helper ID Nicer2 12/07/21 19:41 Sodium 138 mmol/L (136-145) 12/07/21 19:09 Potassium 3.5 mmol/L (3.5-5.1) 12/07/21 19:09 Chloride 95 mmol/L (98-107) L 12/07/21 19:09 Carbon Dioxide 26 mmol/L (22-29) 12/07/21 19:09 Anion Gap 20.5 (5-19) H 12/07/21 19:09 BUN 17 mg/dL (8-23) 12/07/21 19:09 Creatinine 0.9 mg/dL (0.5-0.9) 12/07/21 19:09 GFR Calculation Not Reportable 12/07/21 19:09 Glucose 39 mg/dL (65-115) L* 12/07/21 19:09 Calculated Osmolality 284 mOsm/kg (285-295) L 12/07/21 19:09 Lactate 1.3 mmol/L (0.5-2.2) 12/07/21 19:41 Calcium 9.6 mg/dL (8.5-10.5) 12/07/21 19:09 Total Bilirubin 0.4 mg/dL (0.15-1.2) 12/07/21 19:09 AST 37 U/L (0-32) H 12/07/21 19:09 ALT 46 U/L (0-33) H 12/07/21 19:09 Alkaline Phosphatase 146 IU/L (35-105) H 12/07/21 19:09 Troponin T Baseline 46 ng/L (0-10) H 12/07/21 19:09 Troponin T 120 Minute 39.56 ng/L (0-10) H 12/07/21 21:02 Delta Troponin T -6.44 ABS# (0-10) L 12/07/21 21:02 C-Reactive Protein 15.6 mg/L (0.0-4.9) H 12/07/21 19:09 Total Protein 6.5 g/dL (6.6-8.7) L 12/07/21 19:09 Albumin 3.9 g/dL (3.5-5.2) 12/07/21 19:09 Globulin 2.6 g/dL (1.3-4.6) 12/07/21 19:09 Procalcitonin 0.09 ng/mL (0-0.5) 12/07/21 19:09 Urine Color Yellow (Yellow) 12/07/21 19:48 Urine Appearance Cloudy (CLEAR) 12/07/21 19:48 Urine pH 5 (5-7) 12/07/21 19:48 Ur Specific [place] 1.015 (1.005-1.030) 12/07/21 19:48 Urine Protein Neg (Negative) 12/07/21 19:48 Urine Glucose (UA) Norm (Normal) 12/07/21 19:48 Urine Ketones Negative (Negative) 12/07/21 19:48 Urine Blood 2+ (Negative) H 12/07/21 19:48 Urine Nitrate Positive (Negative) H 12/07/21 19:48 Urine Bilirubin Neg (Negative) 12/07/21 19:48 Urine Urobilinogen Norm mg/dL (Negative) 12/07/21 19:48 Ur Leukocyte Esterase 2+ (Negative) H 12/07/21 19:48 Urine RBC 5-10 /hpf (0-2) H 12/07/21 19:48 Urine WBC Too numerous to cnt /hpf (0-5) H 12/07/21 19:48 Ur Squamous Epith Cells 0-4 /hpf (0-5) H 12/07/21 19:48 Amorphous Sediment Not Reportable 12/07/21 19:48 Urine Bacteria 4+ /hpf (NONE) H 12/07/21 19:48 Urine Yeast 4+ /hpf H 12/07/21 19:48 Discharge Plan Discharge Patient Disposition: Home Clinical Impression: UTI (urinary tract infection), Hypoglycemia Condition: Stable Prescriptions: New cefdinir 300 mg capsule 300 mg PO BID Qty: 14 0RF No Action aspirin [Adult Low Dose Aspirin] 81 mg tablet,delayed release (DR/EC) 81 mg PO DAILY@0800 0RF venlafaxine [Effexor XR] 150 mg capsule,extended release 24hr 150 mg PO DAILY Qty: 30 2RF (DME) BIPAP MACHINE Qty: 1 0RF Rx Instructions: As directed (DME) BIPAP MASK Qty: 1 2RF Rx Instructions: As directed (DME) BIPAP SUPPLIES Qty: 1 2RF Rx Instructions: As directed (DME) Easy Plus II Test Strip See Rx Instructions .ROUTE .MEDSUPPLY Qty: 50 3RF Rx Instructions: use one strip to check blood sugars two time daily metoprolol tartrate 50 mg tablet 50 mg PO BID@0800,1999 90 Days Qty: 180 0RF (DME) blood-glucose meter [Easy Plus II Blood Glucose Met] Misc See Rx Instructions .ROUTE .MEDSUPPLY Qty: 1 0RF Rx Instructions: use meter two times a day to check blood sugar amiodarone 200 mg tablet 200 mg PO DAILY@0800 Qty: 90 1RF Rx Instructions: Originally prescribed by Dr. Sampson but was needing pharmacy change. lisinopril 20 mg tablet 20 mg PO DAILY Qty: 90 0RF Hold Instructions: Resume on 12/02/21. escitalopram oxalate 20 mg tablet 20 mg PO DAILY 0RF Ykyv-Fkuy-Nfods (vit C-biotin) 50 mg -1,250 mcg Tablet,Chewable 1 tab PO DAILY 0RF Gummies 400 mcg-35 mg- 25 mg-5 mg Tablet,Chewable 1 tab PO DAILY 0RF atorvastatin 20 mg tablet 20 mg PO DAILY 0RF zonisamide 100 mg capsule 400 mg PO DAILY 0RF pantoprazole 40 mg tablet,delayed release (DR/EC) 40 mg PO DAILY@08 0RF glimepiride 4 mg tablet 4 mg PO DAILY 0RF bumetanide 1 mg tablet 1 mg PO DAILY 0RF metformin 500 mg tablet extended release 24 hr 1,000 mg PO BID@08,20 0RF levetiracetam 750 mg tablet extended release 24 hr 750 mg PO DAILY 0RF Xarelto 20 mg tablet 20 mg PO DAILY 0RF Jardiance 25 mg tablet 25 mg PO DAILY 0RF levothyroxine 137 mcg Tablet 137 mcg PO QAM 30 Days Qty: 30 0RF diltiazem HCl 240 mg Capsule,Extended Release 24hr 240 mg PO DAILY 30 Days Qty: 30 0RF benzonatate 100 mg Capsule 200 mg PO TID PRN (Reason: cough) Qty: 10 0RF dexamethasone 6 mg tablet 6 mg PO DAILY Qty: 7 0RF Spiriva with HandiHaler 18 mcg capsule, w/inhalation device 1 cap inhalation DAILY Qty: 14 0RF Rx Instructions: puncture 1 cap using device; one dose = 2 inhalations Discharge Orders: Discharge ED (Routine); Ordered 12/07/21 Ordered By: Pablo Priest Referrals: Aretha Davies, WAF[employer] CLEANER [Primary Care Provider] - Patient Instructions: Urinary Tract Infection in Women (ED), Hypoglycemia in a Person with Diabetes (ED) Activity Restrictions/Additional Instructions: Do not take your glimepiride for the next 48 hours. Watch your sugar closely, especially the next 12 hours. Make sure your intake is enough to maintain an adequate blood sugar. Antibiotics as directed. Return for worsening mental status or lethargy, pain, shortness of breath, worsening weakness, any other concerning symptoms. Coding Level of Care Code ED Stonemason Apprentice for Morgan Fwd Exam Comprehensive
[2021-12-07 19:53] LABS: ABG PCO2 38.3 mmHg (35-45); ABG PH Result 7.45 (7.35-7.45); Arterial Blood Gas Hematocrit 41.9 % (37-47); Base Excess ABG 2.6 mmol/L (-2.0-2.0); Blood Gas Sample Site Radial, left; Blood Gas Sample Type Arterial; HCO3 ABG 26.6 mmol/L (22-26); Oxygen Device NC; PO2 ABG 92.5 mmHg (80.0-100.0)
[2021-12-07 20:07] LABS: INR 2.07 (0.8-1.2); Partial Thromboplastin Time 37.4 SECONDS (23.9-36.7)
[2021-12-07 20:11] LABS: Lactate (Lactic Acid level) 1.3 mmol/L (0.5-2.2)
[2021-12-07 20:13] LABS: Add Urine Culture? Yes; Add Urine Microscopic? YES; Bacteria Urine 4+ /hpf; Bilirubin Urine Neg (Negative); Blood Urine 2+ (Negative); Glucose Urine UA Norm (Normal); Ketones Urine Negative (Negative); Leukocyte Esterase Urine 2+ (Negative); Nitrate Urine Positive (Negative); Protein Urine Neg (Negative); Specific Gravity, Urine 1.015 (1.005-1.030); Squamous Epithelial Cell Urine 0-4 /hpf (0-5); Urine Appearance Cloudy (CLEAR); Urine Color Yellow (Yellow); Urobilinogen Urine Norm (Negative); WBC Urine TOO NUMEROUS TO CNT /hpf (0-5); pH Urine 5 (5-7)
[2021-12-07 20:18] LABS: Troponin(5th) Baseline 46 ng/L (0-10)
[2021-12-07 20:19] LABS: Albumin Level 3.9 g/dL (3.5-5.2); Alkaline Phosphatase 146 IU/L (35-105); Blood Urea Nitrogen 17 mg/dL (8-23); C Reactive Protein 15.6 mg/L (0.0-4.9); Calcium 9.6 mg/dL (8.5-10.5); Carbon Dioxide 26 mmol/L (22-29); Chloride 95 mmol/L (98-107); Globulin 2.6 g/dL (1.3-4.6); Osmolality Calculated 284 mOsm/kg (285-295); Sodium 138 mmol/L (136-145); Total Bilirubin 0.4 mg/dL (0.15-1.2); Total Protein 6.5 g/dL (6.6-8.7)
[2021-12-07 20:24] LABS: Alanine Aminotransferase 46 U/L (0-33); Anion Gap 20.5 (5-19); Aspartate Amino Transferase 37 U/L (0-32); Potassium 3.5 mmol/L (3.5-5.1)
[2021-12-07 20:25] LABS: Procalcitonin 0.09 ng/mL (0-0.5)
[2021-12-07 20:26] LABS: Glucose 39 mg/dL (65-115)
--- NOTE | 2021-12-07 20:51 | PC.NURSE ---
Lab called with critical lab result of Glucose level of 39. Dr. Priest notified and D10 was ordered for pt. Nurse unable to override D10 from pyxis to give. Pt given coke while waiting on order to be verified by pharmacist. After waiting 10 minutes and med still not being verified Dr. Priest gave verbal order to give 1 amp of D50. D50 overrode from pyxis and given to patient.
[2021-12-07] MEDS: cefTRIAXone 1,000 MG in sodium chloride 0.9% (plus) 50 ML 100 MG IV (21:18)
[2021-12-07 21:27] LABS: Troponin 5 2HR 39.56 ng/L (0-10); Troponin 5 2HR Delta -6.44 ABS# (0-10)
--- NOTE | 2021-12-07 21:32 | ECG_ITS ---
[facility] Test Date: 2021-12-07 Pat Name: Gianluca Goode Department: Room: Gender: Female Ward Aide: : 1945 Requested By: Pablo Chan Order Number: [id number] Jake MD: Bo Drummond M.D. Measurements Intervals [place] Rate: 77 P: AL: QRS: -11 QRSD: 101 T: -53 QT: 399 QTc: 452 Interpretive Statements ATRIAL FIBRILLATION OCCASIONAL VENTRICULAR PREMATURE CONTRACTIONS NONSPECIFIC ST & T-WAVE ABNORMALITY Compared to ECG 12/07/2021 19:55:03 No significant changes Electronically Signed On 12-08-2021 9:00:56 PAPER BAG INSPECTOR by Bo Drummond M.D. [email or web address]
--- NOTE | 2021-12-07 22:35 | PC.NURSE ---
Both sisters were called to update them on pt's status. They were made aware that pt is up for d/c and needs a ride home. They were very upset and refused to come pick pt up and stated she has to be admitted. Family member ria hung up mid conversation. Daughter called and no answer. Pt given sandwich and d/c paperwork. She was able to stand without assistance and get into wheelchair
[2021-12-08 16:59] LABS: Glucose Point of Care 178 mg/dL (70-110)
[2021-12-08 16:59] LABS: Glucose Point of Care 200 mg/dL (70-110)
--- NOTE | 2021-12-09 11:03 | DCPLANNER ---
client success manager had message to speak with patient or patients family about possible skilled nursing placement. client success manager spoke with patients daughter, who stated that patients primary care physician is working on skilled nursing placement.
== END 2021-12-07 22:56 | disposition home or self-care (01) ==
PROVIDERS: Emergency Provider Emergency Medicine; PCP Registered Nurse
DX: N39.0 Urinary tract infection, site not specified (principal); E13.649 Other specified diabetes mellitus with hypoglycemia without coma; Z79.82 Long term (current) use of aspirin; Z79.84 Long term (current) use of oral hypoglycemic drugs; I11.0 Hypertensive heart disease with heart failure; I50.9 Heart failure, unspecified; Z86.73 Personal history of transient ischemic attack (TIA), and cerebral infarction without residual deficits; Z87.891 Personal history of nicotine dependence
CPT/HCPCS: 36415; 36416; 70450; 71045; 80053; 81001; 82803; 82962; 83605; 84145; 84484; 85025; 85610; 85730; 86140; 87040; 87077; 87086; 87186; 93005; 96365; 99283; J0696; J7799

== ENCOUNTER → 2022-01-22 09:37 | Outpatient (BNVA) | payer MEDICARE, OTHER, SELFPAY | PROVIDERS: PCP Registered Nurse; Visit Provider Registered Nurse | DX: G40.309 Generalized idiopathic epilepsy and epileptic syndromes, not intractable, without status epilepticus (principal); E11.9 Type 2 diabetes mellitus without complications; N39.0 Urinary tract infection, site not specified | CPT/HCPCS: 81000; 83036; 87077; 87086; 87184 ==

== ENCOUNTER → 2022-01-23 10:46 | Outpatient (BNVA) | payer MEDICARE, OTHER, SELFPAY | PROVIDERS: PCP Registered Nurse | DX: G47.30 Sleep apnea, unspecified (principal); G40.309 Generalized idiopathic epilepsy and epileptic syndromes, not intractable, without status epilepticus; I11.0 Hypertensive heart disease with heart failure; I48.0 Paroxysmal atrial fibrillation; I50.32 Chronic diastolic (congestive) heart failure; G47.33 Obstructive sleep apnea (adult) (pediatric); Z95.0 Presence of cardiac pacemaker; I63.9 Cerebral infarction, unspecified | CPT/HCPCS: 99214 ==

== ENCOUNTER → 2022-02-23 10:52 | Outpatient (BNVA) | payer MEDICARE, OTHER, SELFPAY | PROVIDERS: PCP Registered Nurse | DX: I48.92 Unspecified atrial flutter (principal); I48.91 Unspecified atrial fibrillation | CPT/HCPCS: 93005 ==

== ENCOUNTER 2022-04-22 04:59 | Emergency (ER) | payer MEDICARE, OTHER, SELFPAY ==
[2022-04-22] VITALS (7 sets, daily range): BP systolic 138–223; BP diastolic 71–86; PULSE 74–76; RESP 18–19; TEMP 36.6; O2SAT 93–98; BMI 29.0
--- NOTE | 2022-04-22 05:04 | CTR_ITS ---
PROCEDURE INFORMATION: Exam: CT Head Without Contrast Exam date and time: 04/22/2022 5:24 AM Age: 76 years old Clinical indication: Patient HX: Seizure this a. M. History of seizures and CVA. TECHNIQUE: Imaging protocol: Computed tomography of the head without contrast. Radiation optimization: All CT scans at this facility use at least one of these dose optimization techniques: automated exposure control; mA and/or kV adjustment per patient size (includes targeted exams where dose is matched to clinical indication); or iterative reconstruction. COMPARISON: CT head wo con* [id number] 12/07/2021 8:27 PM RADIATION DOSE METRICS: Total DLP (mGy-cm): 829.56 FINDINGS: Brain: There is no acute hemorrhage or mass effect. Mild diffuse volume loss is within the range of normal for patient age. Encephalomalacia involves the left parietal, occipital and posterior temporal lobes. Focal infarct involves the right cerebellum. Cerebral ventricles: No ventriculomegaly. Paranasal sinuses: Visualized sinuses are unremarkable. No fluid levels. Mastoid air cells: Visualized mastoid air cells are well aerated. Bones/joints: Unremarkable. No acute fracture. Soft tissues: Unremarkable. CT/CT head wo con* [id number] IMPRESSION: No acute intracranial abnormality. Chronic changes.
--- NOTE | 2022-04-22 05:05 | ECG_ITS ---
[facility] Test Date: 2022-04-22 Pat Name: Gianluca Goode Department: Room: Gender: Female Proc Tech: : 1945 Requested By: Merlyn Lozano Order Number: [id number] Jake MD: Rush Caruso M.D. Measurements Intervals [place] Rate: 76 P: -67 DE: 242 QRS: 5 QRSD: 102 T: 60 QT: 400 QTc: 450 Interpretive Statements ELECTRONIC ATRIAL PACEMAKER Ventricular bigeminy Possible SEPTAL MYOCARDIAL INFARCTION , OF INDETERMINATE AGE [40+ ms Q WAVE IN V1/V2] Compared to ECG 12/07/2021 21:36:23 Myocardial infarct finding now present Atrial fibrillation no longer present T-wave abnormality no longer present Electronically Signed On 04-22-2022 10:25:18 CDT by Rush Caruso M.D. [email or web address]
--- NOTE | 2022-04-22 05:09 | W.ED.SEIZURE ---
Documented by User: Merlyn Lozano MD 04/22/22 05:11 HPI - Seizure General: Chief Complaint: Seizure Stated Complaint: AMS Time Seen by Provider: 04/22/22 05:00 Source: patient and EMS Mode of arrival: EMS Limitations: no limitations History of Present Illness: HPI Narrative: 76-year-old female who is here with EMS she has a history of a CVA in 2019 and has had chronic headaches along with seizures. Per family patient had a seizure roughly an hour and a half ago was witnessed she had a period of altered mental status after is currently back to baseline. She does have some memory deficits from her previous stroke. States she has had a headache for roughly a month but does have history of headaches states this is like her chronic headaches. Patient is able answer all my questions appropriately here. Denies any other pain. Seizure History: Yes Associated symptoms: Deny chest pain, chills or fever(s) Review of Systems Const: Denies: fever(s), chills, body aches or change in appetite Eyes: Denies: blurry vision or eye discomfort ENMT: Denies: throat pain or dental pain Card: Denies: chest pain Resp: Denies: dyspnea GI: Denies: abdominal pain, nausea, vomiting or diarrhea : Denies: dysuria Musc: Denies: neck pain or back pain Skin/Breast: Denies: rash Neuro: Reports: headache(s) and seizure-like activity Psych: Denies: depression Trung/Lymph: Denies: easy bruising All/Imm: Denies: urticaria PFSH ED PFSH: Medical History Atrial dysrhythmia Atrial fibrillation Atrial flutter CHF (congestive heart failure) 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, managed as type 2 Diastolic heart failure Drug-induced bradycardia Digoxin was discontinued along beta-alexandrea Generalized epilepsy Heart failure Hypertension Hypothyroidism -on levothyroxine Non-insulin dependent diabetes mellitus -A1c (12/2019): 8.3 -Accucheks, ISS, hypoglycemia precautions -consistent carb diet as tolerated -takes metformin at home, can resume on d/c Obstructive sleep apnea Paroxysmal A-fib Seizure Severe obstructive sleep apnea Sleep apnea Sleep apnea in adult Stroke due to embolism of left middle cerebral artery -prior hx of L MCA CVA in 05/2019; did not receive tPA -has been f/u with Dr. 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 Surgical History No pertinent past surgical history Status post cardiac pacemaker procedure Family History Sister Diabetes Father Heart disease Mother Heart disease Social History Smoking and tobacco status: former smoker Alcohol intake: never History of recent travel: No Physical Exam Const: COMMON NORMALS: no acute distress, patient oriented x3 and healthy appearing HENMT: COMMON NORMALS: normocephalic and atraumatic HEAD & SCALP: normocephalic and atraumatic Eye: COMMON NORMALS: Equal, round and reactive pupils present and EOMs intact bilaterally PUPIL: Yes Equal, round and reactive pupils present Neck/C-Spine: COMMON NORMALS: full ROM and supple Chest: COMMONS NORMALS: normal inspection of the chest and normal palpation of entire chest wall Resp: COMMON NORMALS: normal respiratory effort, No retractions, No use of accessory muscles and clear to auscultation bilaterally AUSCULTATION: clear to auscultation bilaterally Cardio: COMMON NORMALS: regular rate, regular rhythm and No murmurs present (Cardio) RATE: regular rate RHYTHM: regular rhythm GI: COMMON NORMALS: Normal to inspection, nondistended, normoactive bowel sounds present, Soft to palpation, non-tender and no masses PALPATION: Yes Soft to palpation Extremity: COMMON NORMALS: normal to inspection and full ROM Neuro: COMMON NORMALS: patient oriented x3, moves all extremities and no focal motor deficits Psych: COMMON NORMALS: mental status grossly normal, Normal thought process present and cooperative THOUGHT PROCESS: Normal thought process present Skin: COMMON NORMALS: no rashes or lesions noted and no wounds GENERAL SKIN EXAM: no rashes or lesions noted Course Vital Signs: Vital signs: Vital Signs Temperature 97.9 F 04/22/22 05:11 Pulse Rate 76 04/22/22 06:14 Respiratory Rate 19 H 04/22/22 05:57 Blood Pressure 174/79 04/22/22 08:22 Pulse Oximetry 93 04/22/22 08:22 MDM - Seizure Lab Data Result diagrams: 04/22/22 05:16 04/22/22 05:16 Labs: Radiology Impressions Head CT 04/22/22 05:04 IMPRESSION: No acute intracranial abnormality. Chronic changes. Laboratory Results WBC 7.9 10^3/uL (4.0-10.0) 04/22/22 05:16 RBC 5.85 10^6/uL (4.1-5.3) H 04/22/22 05:16 Hgb 17.3 g/dL (11.5-15.3) H 04/22/22 05:16 Hct 53.3 % (37.0-47.0) H 04/22/22 05:16 MCV 91.1 fl (81-99) 04/22/22 05:16 MCH 29.6 pg (28.0-34.0) 04/22/22 05:16 MCHC 32.5 g/dL (30.0-36.0) 04/22/22 05:16 RDW 13.8 % (12.1-15.1) 04/22/22 05:16 Plt Count 158 10^3/cmm (130-400) 04/22/22 05:16 MPV 11.4 fL (7.4-10.4) H 04/22/22 05:16 Neut % (Auto) 65.7 % 04/22/22 05:16 Lymph % (Auto) 22.5 % 04/22/22 05:16 Wilson % (Auto) 9.0 % 04/22/22 05:16 Eos % (Auto) 1.6 % 04/22/22 05:16 Baso % (Auto) 0.9 % 04/22/22 05:16 Neut # (Auto) 5.21 10^3/uL (1.8-7.7) 04/22/22 05:16 Lymph # (Auto) 1.8 10^3/uL (0.8-4.8) 04/22/22 05:16 Wilson # (Auto) 0.7 10^3/uL (0.2-0.9) 04/22/22 05:16 Eos # (Auto) 0.1 10^3/uL (0.0-0.8) 04/22/22 05:16 Baso # (Auto) 0.1 10^3/uL (0.0-0.1) 04/22/22 05:16 Nucleated RBC % (auto) 0 % 04/22/22 05:16 Nucleated RBCs # 0.0 /100WBC 04/22/22 05:16 PT 20.80 SECONDS (12.1-14.9) H 04/22/22 05:16 INR 1.75 (0.8-1.2) H 04/22/22 05:16 Sodium 134 mmol/L (136-145) L 04/22/22 05:16 Potassium 4.0 mmol/L (3.5-5.1) 04/22/22 05:16 Chloride 104 mmol/L (98-107) 04/22/22 05:16 Carbon Dioxide 17 mmol/L (22-29) L 04/22/22 05:16 Anion Gap 17.0 (5-19) 04/22/22 05:16 BUN 27 mg/dL (8-23) H 04/22/22 05:16 Creatinine 1.0 mg/dL (0.5-0.9) H 04/22/22 05:16 GFR Calculation Not Reportable 04/22/22 05:16 Glucose 151 mg/dL (65-115) H 04/22/22 05:16 Calculated Osmolality 286 mOsm/kg (285-295) 04/22/22 05:16 Calcium 10.0 mg/dL (8.5-10.5) 04/22/22 05:16 Total Bilirubin 0.2 mg/dL (0.15-1.2) 04/22/22 05:16 AST 22 U/L (0-32) 04/22/22 05:16 ALT 19 U/L (0-33) 04/22/22 05:16 Alkaline Phosphatase 191 IU/L (35-105) H 04/22/22 05:16 Total Protein 7.3 g/dL (6.6-8.7) 04/22/22 05:16 Albumin 3.7 g/dL (3.5-5.2) 04/22/22 05:16 Globulin 3.6 g/dL (1.3-4.6) 04/22/22 05:16 EKG Data EKG 1: Attestation: I personally reviewed and interpreted this EKG as follows: EKG interpretation date: 04/22/22 EKG interpretation time: 05:07 Interpretation: paced hr [address] or t wave abnormalities qrs 102 qtc 430 Discharge Plan Discharge Patient Disposition: Home Clinical Impression: Hypertension, History of cerebrovascular accident, History of seizure Condition: Stable Prescriptions: No Action aspirin [Adult Low Dose Aspirin] 81 mg tablet,delayed release (DR/EC) 81 mg PO DAILY@0800 0RF (DME) BIPAP MACHINE Qty: 1 0RF Rx Instructions: As directed (DME) BIPAP MASK Qty: 1 2RF Rx Instructions: As directed (DME) BIPAP SUPPLIES Qty: 1 2RF Rx Instructions: As directed (DME) Easy Plus II Test Strip See Rx Instructions .ROUTE .MEDSUPPLY Qty: 50 3RF Rx Instructions: use one strip to check blood sugars two time daily fluticasone propionate [Flonase Allergy Relief] 50 mcg/actuation spray,suspension 1 spray intranasal DAILY PRN0RF Rx Instructions: administer into each nostril zonisamide 100 mg capsule 100 mg PO BID 0RF Rx Instructions: Originally prescribed by Dr. Randall. Next appt 04/14 levothyroxine 150 mcg capsule 150 mcg PO DAILY 0RF amiodarone 200 mg tablet 200 mg PO DAILY@0800 Qty: 90 3RF nitrofurantoin monohyd/m-cryst [Macrobid] 100 mg capsule 100 mg PO BID 7 Days Qty: 14 0RF Rx Instructions: must administer with a meal/food (DME) blood-glucose meter [Easy Plus II Blood Glucose Met] [facility] [place] See Rx Instructions .ROUTE .MEDSUPPLY Qty: 1 0RF Rx Instructions: use meter two times a day to check blood sugar Jardiance 25 mg tablet See Rx Instructions .ROUTE .COMPLEX Qty: 90 0RF Dose Instruction: TAKE 1 TABLET BY MOUTH EVERY DAY Rx Instructions: TAKE 1 TABLET BY MOUTH EVERY DAY bumetanide 1 mg tablet See Rx Instructions .ROUTE .COMPLEX Qty: 90 0RF Dose Instruction: TAKE 1 TABLET BY MOUTH EVERY DAY Rx Instructions: TAKE 1 TABLET BY MOUTH EVERY DAY metoprolol tartrate 50 mg tablet 50 mg PO BID@0800,1999 90 Days Qty: 180 0RF pantoprazole 40 mg tablet,delayed release (DR/EC) See Rx Instructions .ROUTE .COMPLEX Qty: 90 0RF Dose Instruction: TAKE 1 TABLET BY MOUTH EVERY DAY AT 8:00AM Rx Instructions: TAKE 1 TABLET BY MOUTH EVERY DAY AT 8:00AM lisinopril 20 mg tablet See Rx Instructions .ROUTE .COMPLEX Qty: 90 0RF Hold Instructions: Resume on 12/02/21. Dose Instruction: TAKE 1 TABLET BY MOUTH EVERY DAY Rx Instructions: TAKE 1 TABLET BY MOUTH EVERY DAY Xarelto 20 mg tablet See Rx Instructions .ROUTE .COMPLEX Qty: 90 0RF Dose Instruction: TAKE 1 TABLET BY MOUTH EVERY DAY Rx Instructions: TAKE 1 TABLET BY MOUTH EVERY DAY atorvastatin 20 mg tablet See Rx Instructions .ROUTE .COMPLEX Qty: 90 0RF Dose Instruction: TAKE 1 TABLET BY MOUTH EVERY DAY AT 8:00AM Rx Instructions: TAKE 1 TABLET BY MOUTH EVERY DAY AT 8:00AM glimepiride 4 mg tablet 4 mg PO DAILY Qty: 90 0RF venlafaxine [Effexor XR] 150 mg capsule,extended release 24hr 150 mg PO DAILY Qty: 30 3RF Uywh-Rcov-Kpblo (vit C-biotin) 50 mg -1,250 mcg Tablet,Chewable 1 tab PO DAILY 0RF Gummies 400 mcg-35 mg- 25 mg-5 mg Tablet,Chewable 1 tab PO DAILY 0RF Spiriva with HandiHaler 18 mcg capsule, w/inhalation device 1 cap inhalation DAILY Qty: 14 0RF Rx Instructions: puncture 1 cap using device; one dose = 2 inhalations Discharge Orders: Discharge ED (Routine); Ordered 04/22/22 Ordered By: Joe Lofton Referrals: Aretha Davies, EATING DISORDER PSYCHOLOGIST [Primary Care Provider] - Patient Instructions: Opioid Safety Activity Restrictions/Additional Instructions: After discharge go to Dr. Randall's office she will see you this morning. Continue all medications. 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, managed as type 2 Diastolic heart failure Drug-induced bradycardia Digoxin was discontinued along beta-alexandrea Generalized epilepsy Heart failure Hypertension Hypothyroidism -on levothyroxine Non-insulin dependent diabetes mellitus -A1c (12/2019): 8.3 -Accucheks, ISS, hypoglycemia precautions -consistent carb diet as tolerated -takes metformin at home, can resume on d/c Obstructive sleep apnea Paroxysmal A-fib Seizure Severe obstructive sleep apnea Sleep apnea Sleep apnea in adult Stroke due to embolism of left middle cerebral artery -prior hx of L MCA CVA in 05/2019; did not receive tPA -has been f/u with Dr. 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 Lozano. Patient is awake. According to family and her friend is at the bedside she is pretty much back at her baseline. Questionable whether or not she had a stroke she woke up and just did not feel well she interpreted as being a stroke nobody actually witnessed. Rachael is still on her medication list she is feels him both on the ground and According Dr. Randall's notes she thinks she has been taking both but cannot really confirm it. In the past prior to the Zonegran being added she did not do as well with controlling her seizures. Her blood pressure was elevated we did improve that with medication she is feeling better she still has a bit of the headache. I discussed Dr. Randall. We have done Zonegran and Keppra levels which will be send outs. For now we will not make any changes in her medications we will discharge her to Dr. Randall's office that she is going to try to make arrangements to see her this morning. Prior to discharge we did give her both p.o. Zonegran and Keppra. Could she has not taken any of her usual medications which require blood pressure was elevated I encouraged her to take those as soon as she is able. Lab Data Result diagrams: 04/22/22 05:16 04/22/22 05:16 Labs: Radiology Impressions Head CT 04/22/22 05:04 IMPRESSION: No acute intracranial abnormality. Chronic changes. Laboratory Results WBC 7.9 10^3/uL (4.0-10.0) 04/22/22 05:16 RBC 5.85 10^6/uL (4.1-5.3) H 04/22/22 05:16 Hgb 17.3 g/dL (11.5-15.3) H 04/22/22 05:16 Hct 53.3 % (37.0-47.0) H 04/22/22 05:16 MCV 91.1 fl (81-99) 04/22/22 05:16 MCH 29.6 pg (28.0-34.0) 04/22/22 05:16 MCHC 32.5 g/dL (30.0-36.0) 04/22/22 05:16 RDW 13.8 % (12.1-15.1) 04/22/22 05:16 Plt Count 158 10^3/cmm (130-400) 04/22/22 05:16 MPV 11.4 fL (7.4-10.4) H 04/22/22 05:16 Neut % (Auto) 65.7 % 04/22/22 05:16 Lymph % (Auto) 22.5 % 04/22/22 05:16 Wilson % (Auto) 9.0 % 04/22/22 05:16 Eos % (Auto) 1.6 % 04/22/22 05:16 Baso % (Auto) 0.9 % 04/22/22 05:16 Neut # (Auto) 5.21 10^3/uL (1.8-7.7) 04/22/22 05:16 Lymph # (Auto) 1.8 10^3/uL (0.8-4.8) 04/22/22 05:16 Wilson # (Auto) 0.7 10^3/uL (0.2-0.9) 04/22/22 05:16 Eos # (Auto) 0.1 10^3/uL (0.0-0.8) 04/22/22 05:16 Baso # (Auto) 0.1 10^3/uL (0.0-0.1) 04/22/22 05:16 Nucleated RBC % (auto) 0 % 04/22/22 05:16 Nucleated RBCs # 0.0 /100WBC 04/22/22 05:16 PT 20.80 SECONDS (12.1-14.9) H 04/22/22 05:16 INR 1.75 (0.8-1.2) H 04/22/22 05:16 Sodium 134 mmol/L (136-145) L 04/22/22 05:16 Potassium 4.0 mmol/L (3.5-5.1) 04/22/22 05:16 Chloride 104 mmol/L (98-107) 04/22/22 05:16 Carbon Dioxide 17 mmol/L (22-29) L 04/22/22 05:16 Anion Gap 17.0 (5-19) 04/22/22 05:16 BUN 27 mg/dL (8-23) H 04/22/22 05:16 Creatinine 1.0 mg/dL (0.5-0.9) H 04/22/22 05:16 GFR Calculation Not Reportable 04/22/22 05:16 Glucose 151 mg/dL (65-115) H 04/22/22 05:16 Calculated Osmolality 286 mOsm/kg (285-295) 04/22/22 05:16 Calcium 10.0 mg/dL (8.5-10.5) 04/22/22 05:16 Total Bilirubin 0.2 mg/dL (0.15-1.2) 04/22/22 05:16 AST 22 U/L (0-32) 04/22/22 05:16 ALT 19 U/L (0-33) 04/22/22 05:16 Alkaline Phosphatase 191 IU/L (35-105) H 04/22/22 05:16 Total Protein 7.3 g/dL (6.6-8.7) 04/22/22 05:16 Albumin 3.7 g/dL (3.5-5.2) 04/22/22 05:16 Globulin 3.6 g/dL (1.3-4.6) 04/22/22 05:16 Discharge Plan Discharge Patient Disposition: Home Clinical Impression: Hypertension, History of cerebrovascular accident, History of seizure Condition: Stable Prescriptions: No Action aspirin [Adult Low Dose Aspirin] 81 mg tablet,delayed release (DR/EC) 81 mg PO DAILY@0800 0RF (DME) BIPAP MACHINE Qty: 1 0RF Rx Instructions: As directed (DME) BIPAP MASK Qty: 1 2RF Rx Instructions: As directed (DME) BIPAP SUPPLIES Qty: 1 2RF Rx Instructions: As directed (DME) Easy Plus II Test Strip See Rx Instructions .ROUTE .MEDSUPPLY Qty: 50 3RF Rx Instructions: use one strip to check blood sugars two time daily fluticasone propionate [Flonase Allergy Relief] 50 mcg/actuation spray,suspension 1 spray intranasal DAILY PRN0RF Rx Instructions: administer into each nostril zonisamide 100 mg capsule 100 mg PO BID 0RF Rx Instructions: Originally prescribed by Dr. Randall. Next appt 04/14 levothyroxine 150 mcg capsule 150 mcg PO DAILY 0RF amiodarone 200 mg tablet 200 mg PO DAILY@0800 Qty: 90 3RF nitrofurantoin monohyd/m-cryst [Macrobid] 100 mg capsule 100 mg PO BID 7 Days Qty: 14 0RF Rx Instructions: must administer with a meal/food (DME) blood-glucose meter [Easy Plus II Blood Glucose Met] [facility] [place] See Rx Instructions .ROUTE .MEDSUPPLY Qty: 1 0RF Rx Instructions: use meter two times a day to check blood sugar Jardiance 25 mg tablet See Rx Instructions .ROUTE .COMPLEX Qty: 90 0RF Dose Instruction: TAKE 1 TABLET BY MOUTH EVERY DAY Rx Instructions: TAKE 1 TABLET BY MOUTH EVERY DAY bumetanide 1 mg tablet See Rx Instructions .ROUTE .COMPLEX Qty: 90 0RF Dose Instruction: TAKE 1 TABLET BY MOUTH EVERY DAY Rx Instructions: TAKE 1 TABLET BY MOUTH EVERY DAY metoprolol tartrate 50 mg tablet 50 mg PO BID@0800,1999 90 Days Qty: 180 0RF pantoprazole 40 mg tablet,delayed release (DR/EC) See Rx Instructions .ROUTE .COMPLEX Qty: 90 0RF Dose Instruction: TAKE 1 TABLET BY MOUTH EVERY DAY AT 8:00AM Rx Instructions: TAKE 1 TABLET BY MOUTH EVERY DAY AT 8:00AM lisinopril 20 mg tablet See Rx Instructions .ROUTE .COMPLEX Qty: 90 0RF Hold Instructions: Resume on 12/02/21. Dose Instruction: TAKE 1 TABLET BY MOUTH EVERY DAY Rx Instructions: TAKE 1 TABLET BY MOUTH EVERY DAY Xarelto 20 mg tablet See Rx Instructions .ROUTE .COMPLEX Qty: 90 0RF Dose Instruction: TAKE 1 TABLET BY MOUTH EVERY DAY Rx Instructions: TAKE 1 TABLET BY MOUTH EVERY DAY atorvastatin 20 mg tablet See Rx Instructions .ROUTE .COMPLEX Qty: 90 0RF Dose Instruction: TAKE 1 TABLET BY MOUTH EVERY DAY AT 8:00AM Rx Instructions: TAKE 1 TABLET BY MOUTH EVERY DAY AT 8:00AM glimepiride 4 mg tablet 4 mg PO DAILY Qty: 90 0RF venlafaxine [Effexor XR] 150 mg capsule,extended release 24hr 150 mg PO DAILY Qty: 30 3RF Awil-Vmzw-Arngr (vit C-biotin) 50 mg -1,250 mcg Tablet,Chewable 1 tab PO DAILY 0RF Gummies 400 mcg-35 mg- 25 mg-5 mg Tablet,Chewable 1 tab PO DAILY 0RF Spiriva with HandiHaler 18 mcg capsule, w/inhalation device 1 cap inhalation DAILY Qty: 14 0RF Rx Instructions: puncture 1 cap using device; one dose = 2 inhalations Discharge Orders: Discharge ED (Routine); Ordered 04/22/22 Ordered By: Joe Lofton Referrals: Aretha Davies, EATING DISORDER PSYCHOLOGIST [Primary Care Provider] - Patient Instructions: Opioid Safety Activity Restrictions/Additional Instructions: After discharge go to Dr. Randall's office she will see you this morning. Continue all medications. Coding Level of Care Code ED Fitness Instructor for Chg Fwd Exam Comprehensive
[2022-04-22] MEDS: acetaminophen 325 mg Tablet 650 MG PO (05:10)
[2022-04-22 05:22] LABS: Basophils # 0.1 10^3/uL (0.0-0.1); Basophils % 0.9 %; Eosinophils # 0.1 10^3/uL (0.0-0.8); Eosinophils % 1.6 %; Hematocrit 53.3 % (37.0-47.0); Hemoglobin 17.3 g/dL (11.5-15.3); Lymphocytes # 1.8 10^3/uL (0.8-4.8); Lymphocytes % 22.5 %; Mean Corpuscular HGB Conc 32.5 g/dL (30.0-36.0); Mean Corpuscular Hemoglobin 29.6 pg (28.0-34.0); Mean Corpuscular Volume 91.1 fl (81-99); Mean Platelet Volume 11.4 fL (7.4-10.4); Monocytes # 0.7 10^3/uL (0.2-0.9); Neutrophils # 5.21 10^3/uL (1.8-7.7); Neutrophils % 65.7 %; Nucleated Red Blood Cells % 0 %; Platelet Count 158 10^3/cmm (130-400); Red Blood Count 5.85 10^6/uL (4.1-5.3); Red Cell Distribution Width 13.8 % (12.1-15.1); White Blood Count 7.9 10^3/uL (4.0-10.0)
[2022-04-22 05:35] LABS: INR 1.75 (0.8-1.2)
[2022-04-22 05:41] LABS: Alanine Aminotransferase 19 U/L (0-33); Albumin Level 3.7 g/dL (3.5-5.2); Alkaline Phosphatase 191 IU/L (35-105); Blood Urea Nitrogen 27 mg/dL (8-23); Carbon Dioxide 17 mmol/L (22-29); Chloride 104 mmol/L (98-107); Globulin 3.6 g/dL (1.3-4.6); Glucose 151 mg/dL (65-115); Osmolality Calculated 286 mOsm/kg (285-295); Sodium 134 mmol/L (136-145); Total Bilirubin 0.2 mg/dL (0.15-1.2); Total Protein 7.3 g/dL (6.6-8.7)
[2022-04-22 05:47] LABS: Aspartate Amino Transferase 22 U/L (0-32)
[2022-04-22] MEDS: hyDRALAzine 20 mg/mL INJ 1 mL 10 MG IVP (05:54)
[2022-04-22] MEDS: ketorolac 30 mg/mL INJ 15 MG IVP (08:08)
[2022-04-22] MEDS: levETIRAcetam 500 mg Tablet 750 MG PO (08:17)
[2022-04-22] MEDS: zonisamide 100 MG Capsule 400 MG PO (08:17)
[2022-04-23 10:26] LABS: Levetiracetam Immunoassy <2.0 mcg/mL (6.0-46.0)
[2022-04-26 13:32] LABS: Zonisamide (Zonegran) 16.3 mcg/mL (10.0-40.0)
== END 2022-04-22 08:41 | disposition home or self-care (01) ==
PROVIDERS: Emergency Medicine; Emergency Provider Family Medicine; PCP Registered Nurse
DX: G40.309 Generalized idiopathic epilepsy and epileptic syndromes, not intractable, without status epilepticus (principal); G43.711 Chronic migraine without aura, intractable, with status migrainosus; Z86.73 Personal history of transient ischemic attack (TIA), and cerebral infarction without residual deficits; Z74.09 Other reduced mobility; Z74.1 Need for assistance with personal care; Z79.84 Long term (current) use of oral hypoglycemic drugs; Z79.82 Long term (current) use of aspirin; I11.0 Hypertensive heart disease with heart failure; I50.9 Heart failure, unspecified; E11.9 Type 2 diabetes mellitus without complications
CPT/HCPCS: 70450; 80053; 80177; 80203; 85025; 85610; 93005; 96374; 96375; 99215; 99284; J0360; J1885

== ENCOUNTER → 2022-04-28 10:42 | Outpatient (BNVA) | payer MEDICARE, OTHER, SELFPAY | PROVIDERS: PCP Registered Nurse; Visit Provider Registered Nurse | DX: N39.0 Urinary tract infection, site not specified (principal); E13.9 Other specified diabetes mellitus without complications; I10 Essential (primary) hypertension | CPT/HCPCS: 80048; 80061; 81000; 83036; 87077; 87086; 87184 ==

== ENCOUNTER 2022-05-15 12:34 | Emergency (ER) | payer MEDICARE, OTHER, SELFPAY ==
[2022-05-15 12:41] VITALS: BP 171/72; PULSE 56; RESP 16; TEMP 36.4; O2SAT 93; BMI 38.4
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
--- NOTE | 2022-05-15 13:08 | W.ED.HEATRA ---
Documented by User: Dania Mccormick PA-C 05/15/22 15:05 HPI - Head Injury General: Chief complaint: Head Injury Stated complaint: fall- head injury/ bite to L arm Time Seen by Provider: 05/15/22 12:52 Source: patient Mode of arrival: wheelchair Limitations: no limitations History of Present Illness: 76-year-old female presents to the ER today for a fall this a.m. with hematoma on her head. Patient reports this occurred during the night. Patient reports she felt a stinging pain on her left upper arm and she got up to go to the bathroom to look at it. Patient reports she remembers the sensation of falling down but does not know if she tripped on some. Patient reports she hit her head on the vanity. Patient does not know if she lost consciousness however was down on the ground for quite some time and is pretty sure she was unconscious for part of that time. The exact time patient was on the ground is unknown. They found the patient this morning so it could have been several hours. She reports at this time she has a headache and some intermittent dizziness. Patient has a history of strokes. Patient does not feel like she had a stroke this morning but rather think she tripped and fell. Patient does admit to being on blood thinners. 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, managed as type 2 Diastolic heart failure Drug-induced bradycardia Digoxin was discontinued along beta-alexandrea Generalized epilepsy Heart failure Hypertension Hypothyroidism -on levothyroxine Non-insulin dependent diabetes mellitus -A1c (12/2019): 8.3 -Accucheks, ISS, hypoglycemia precautions -consistent carb diet as tolerated -takes metformin at home, can resume on d/c Obstructive sleep apnea Paroxysmal A-fib Seizure Severe obstructive sleep apnea Sleep apnea Sleep apnea in adult Stroke due to embolism of left middle cerebral artery -prior hx of L MCA CVA in 05/2019; did not receive tPA -has been f/u with Dr. 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 Surgical History No pertinent past surgical history Status post cardiac pacemaker procedure Family History Sister Diabetes Father Heart disease Mother Heart disease Social History Smoking and tobacco status: former smoker Alcohol intake: never History of recent travel: No Physical Exam Const: COMMON NORMALS: average body habitus HENMT: HEAD & SCALP: contusion and hematoma (Left side of forehead/jain) Eye: COMMON NORMALS: conjunctivae normal CONJUNCTIVA: Yes conjunctivae normal Neck/C-Spine: COMMON NORMALS: full ROM and no lymphadenopathy Resp: COMMON NORMALS: normal respiratory effort, No retractions and clear to auscultation bilaterally AUSCULTATION: clear to auscultation bilaterally Cardio: COMMON NORMALS: regular rate and regular rhythm RATE: regular rate RHYTHM: regular rhythm Back/Pelvis: COMMON NORMALS: no thoracic nor lumbar tenderness Extremity: COMMON NORMALS: normal to inspection Neuro: OTHER: Patient is at her baseline Psych: COMMON NORMALS: cooperative MOOD & AFFECT: Yes Flat affect present Skin: OTHER: Patient has a contusion noted to the left jain/forehead. No lacerations are noted. Patient also has a lesion on the left posterior upper arm that has a central clearing with a slightly bluish tinted surround along with some erythema surrounding that. No open wound noted there. Course ED course: 76-year-old female presents the ER today morning. Patient reports she got up during the night due to some sort of lesion on her arm that was hurting and was trying to get to the bathroom when she thinks she tripped and fell. Patient remembers falling. She does not know if she lost consciousness however was down for quite some times and thinks she did. Patient reports she is on blood thinners. Patient reports a headache and some dizziness at this time. We will get a head CT along with lab work given patient may have been down for a prolonged amount of time. Vital Signs: Vital signs: Vital Signs Temperature 97.5 F L 05/15/22 12:41 Pulse Rate 56 L 05/15/22 12:41 Respiratory Rate 16 05/15/22 12:41 Blood Pressure 171/72 05/15/22 12:41 Pulse Oximetry 93 05/15/22 12:41 MDM - Head Injury Medcial Decision Making 76-year-old female presents the ER today morning. Patient reports she got up during the night due to some sort of lesion on her arm that was hurting and was trying to get to the bathroom when she thinks she tripped and fell. Patient remembers falling. She does not know if she lost consciousness however was down for quite some times and thinks she did. Patient reports she is on blood thinners. Patient reports a headache and some dizziness at this time. We will get a head CT along with lab work given patient may have been down for a prolonged amount of time. CT of the head is unchanged from recent other head CT. Labs are at patient's baseline. Discussed findings with patient. Recommended she push fluids as that may be a cause of dizziness. Patient has no open wounds to care for at this time. We did discuss that likely patient's left side of her face will swell and bruise from the hematoma on her head. Recommended hydrocortisone and topical Benadryl for insect bite on left upper arm. Patient should follow-up with her PCP in 3 to 5 days. Return to the ER with new or worsening symptoms. Patient verbalized understanding and was in agreement with the treatment plan. Lab Data reviewed and are pts baseline : 05/15/22 13:54 05/15/22 13:[address] 05/15/22 12:44 IMPRESSION: 1. No evidence of intracranial hemorrhage or mass effect. 2. Mild small vessel changes. Mild parenchymal volume loss. 3. Chronic infarcts involving the LEFT parasagittal occipital junction and RIGHT cerebellum. 4. LEFT frontal scalp hematoma from recent trauma. No visualized fractures. 5. No acute intracranial findings. Laboratory Results WBC 6.3 10^3/uL (4.0-10.0) 05/15/22 13:54 RBC 5.02 10^6/uL (4.1-5.3) 05/15/22 13:54 Hgb 15.1 g/dL (11.5-15.3) 05/15/22 13:54 Hct 47.7 % (37.0-47.0) H 05/15/22 13:54 MCV 95.0 fl (81-99) 05/15/22 13:54 MCH 30.1 pg (28.0-34.0) 05/15/22 13:54 MCHC 31.7 g/dL (30.0-36.0) 05/15/22 13:54 RDW 14.3 % (12.1-15.1) 05/15/22 13:54 Plt Count 171 10^3/cmm (130-400) 05/15/22 13:54 MPV 11.9 fL (7.4-10.4) H 05/15/22 13:54 Neut % (Auto) 65.9 % 05/15/22 13:54 Lymph % (Auto) 19.6 % 05/15/22 13:54 [place] % (Auto) 9.6 % 05/15/22 13:54 Eos % (Auto) 3.9 % 05/15/22 13:54 Baso % (Auto) 0.8 % 05/15/22 13:54 Neut # (Auto) 4.17 10^3/uL (1.8-7.7) 05/15/22 13:54 Lymph # (Auto) 1.2 10^3/uL (0.8-4.8) 05/15/22 13:54 [place] # (Auto) 0.6 10^3/uL (0.2-0.9) 05/15/22 13:54 Eos # (Auto) 0.3 10^3/uL (0.0-0.8) 05/15/22 13:54 Baso # (Auto) 0.1 10^3/uL (0.0-0.1) 05/15/22 13:54 Nucleated RBC % (auto) 0 % 05/15/22 13:54 Nucleated RBCs # 0.0 /100WBC 05/15/22 13:54 Sodium 140 mmol/L (136-145) 05/15/22 13:54 Potassium 4.1 mmol/L (3.5-5.1) 05/15/22 13:54 Chloride 106 mmol/L (98-107) 05/15/22 13:54 Carbon Dioxide 25 mmol/L (22-29) 05/15/22 13:54 Anion Gap 13.1 (5-19) 05/15/22 13:54 BUN 25 mg/dL (8-23) H 05/15/22 13:54 Creatinine 0.9 mg/dL (0.5-0.9) 05/15/22 13:54 GFR Calculation Not Reportable 05/15/22 13:54 Glucose 147 mg/dL (65-115) H 05/15/22 13:54 Calculated Osmolality 297 mOsm/kg (285-295) H 05/15/22 13:54 Calcium 10.2 mg/dL (8.5-10.5) 05/15/22 13:54 Total Bilirubin 0.3 mg/dL (0.15-1.2) 05/15/22 13:54 AST 20 U/L (0-32) 05/15/22 13:54 ALT 20 U/L (0-33) 05/15/22 13:54 Alkaline Phosphatase 158 IU/L (35-105) H 05/15/22 13:54 Creatine Kinase 35 U/L (26-192) 05/15/22 13:54 Total Protein 6.2 g/dL (6.6-8.7) L 05/15/22 13:54 Albumin 4.0 g/dL (3.5-5.2) 05/15/22 13:54 Globulin 2.2 g/dL (1.3-4.6) 05/15/22 13:54 Urine Color Yellow (Yellow) 05/15/22 14:03 Urine Appearance Clear (CLEAR) 05/15/22 14:03 Urine pH 5 (5-7) 05/15/22 14:03 Ur Specific [place] 1.010 (1.005-1.030) 05/15/22 14:03 Urine Protein Neg (Negative) 05/15/22 14:03 Urine Glucose (UA) 4+ (Normal) H 05/15/22 14:03 Urine Ketones Negative (Negative) 05/15/22 14:03 Urine Blood Neg (Negative) 05/15/22 14:03 Urine Nitrate Negative (Negative) 05/15/22 14:03 Urine Bilirubin Neg (Negative) 05/15/22 14:03 Urine Urobilinogen Norm mg/dL (Negative) 05/15/22 14:03 Ur Leukocyte Esterase Negative (Negative) 05/15/22 14:03 Critical Care Time Critical Care Time: Critical Care Time: No Discharge Plan Discharge Patient Disposition: Home Clinical Impression: Fall, Head injury, acute, with loss of consciousness, Insect bite Condition: Stable Prescriptions: No Action aspirin [Adult Low Dose Aspirin] 81 mg tablet,delayed release (DR/EC) 81 mg PO DAILY@0800 0RF (DME) BIPAP MACHINE Qty: 1 0RF Rx Instructions: As directed (DME) BIPAP MASK Qty: 1 2RF Rx Instructions: As directed (DME) BIPAP SUPPLIES Qty: 1 2RF Rx Instructions: As directed (DME) Easy Plus II Test Strip See Rx Instructions .ROUTE .MEDSUPPLY Qty: 50 3RF Rx Instructions: use one strip to check blood sugars two time daily fluticasone propionate [Flonase Allergy Relief] 50 mcg/actuation spray,suspension 1 spray intranasal DAILY PRN0RF Rx Instructions: administer into each nostril levothyroxine 150 mcg capsule 150 mcg PO DAILY 0RF amiodarone 200 mg tablet 200 mg PO DAILY@0800 Qty: 90 3RF Jardiance 25 mg tablet See Rx Instructions .ROUTE .COMPLEX Qty: 90 0RF Dose Instruction: TAKE 1 TABLET BY MOUTH EVERY DAY Rx Instructions: TAKE 1 TABLET BY MOUTH EVERY DAY glimepiride 4 mg tablet 4 mg PO DAILY Qty: 90 0RF lisinopril 20 mg tablet See Rx Instructions .ROUTE .COMPLEX Qty: 90 0RF Hold Instructions: Resume on 12/02/21. Dose Instruction: TAKE 1 TABLET BY MOUTH EVERY DAY Rx Instructions: TAKE 1 TABLET BY MOUTH EVERY DAY metoprolol tartrate 50 mg tablet 50 mg PO BID@0800,1999 90 Days Qty: 180 0RF pantoprazole 40 mg tablet,delayed release (DR/EC) See Rx Instructions .ROUTE .COMPLEX Qty: 90 0RF Dose Instruction: TAKE 1 TABLET BY MOUTH EVERY DAY AT 8:00AM Rx Instructions: TAKE 1 TABLET BY MOUTH EVERY DAY AT 8:00AM Xarelto 20 mg tablet See Rx Instructions .ROUTE .COMPLEX Qty: 90 0RF Dose Instruction: TAKE 1 TABLET BY MOUTH EVERY DAY Rx Instructions: TAKE 1 TABLET BY MOUTH EVERY DAY nitrofurantoin monohyd/m-cryst [Macrobid] 100 mg capsule 100 mg PO BID 30 Days Qty: 60 0RF Rx Instructions: must administer with a meal/food zonisamide [Zonegran] 100 mg capsule 500 mg PO DAILY Qty: 90 1RF (DME) blood-glucose meter [Easy Plus II Blood Glucose Met] Misc See Rx Instructions .ROUTE .MEDSUPPLY Qty: 1 0RF Rx Instructions: use meter two times a day to check blood sugar bumetanide 1 mg tablet See Rx Instructions .ROUTE .COMPLEX Qty: 90 0RF Dose Instruction: TAKE 1 TABLET BY MOUTH EVERY DAY Rx Instructions: TAKE 1 TABLET BY MOUTH EVERY DAY atorvastatin 20 mg tablet See Rx Instructions .ROUTE .COMPLEX Qty: 90 0RF Dose Instruction: TAKE 1 TABLET BY MOUTH EVERY DAY AT 8:00AM Rx Instructions: TAKE 1 TABLET BY MOUTH EVERY DAY AT 8:00AM venlafaxine [Effexor XR] 150 mg capsule,extended release 24hr 150 mg PO DAILY Qty: 30 3RF Rvcr-Sbwb-Gedtr (vit C-biotin) 50 mg -1,250 mcg Tablet,Chewable 1 tab PO DAILY 0RF Gummies 400 mcg-35 mg- 25 mg-5 mg Tablet,Chewable 1 tab PO DAILY 0RF Spiriva with HandiHaler 18 mcg capsule, w/inhalation device 1 cap inhalation DAILY Qty: 14 0RF Rx Instructions: puncture 1 cap using device; one dose = 2 inhalations Discharge Orders: Discharge ED (Routine); Ordered 05/15/22 Ordered By: Dania Mccormick Referrals: Aretha Davies FNP [Primary Care Provider] - Discharge Diet: Usual diet Discharge Activity: Resume usual activity Patient Instructions: Opioid Safety Activity Restrictions/Additional Instructions: Continue home medications. Increase fluid intake. Apply hydrocortisone cream and topical Benadryl to insect bite. Follow-up with PCP in 3 to 5 days. Return to the ER with new or worsening symptoms. 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, managed as type 2 Diastolic heart failure Drug-induced bradycardia Digoxin was discontinued along beta-alexandrea Generalized epilepsy Heart failure Hypertension Hypothyroidism -on levothyroxine Non-insulin dependent diabetes mellitus -A1c (12/2019): 8.3 -Accucheks, ISS, hypoglycemia precautions -consistent carb diet as tolerated -takes metformin at home, can resume on d/c Obstructive sleep apnea Paroxysmal A-fib Seizure Severe obstructive sleep apnea Sleep apnea Sleep apnea in adult Stroke due to embolism of left middle cerebral artery -prior hx of L MCA CVA in 05/2019; did not receive tPA -has been f/u with Dr. 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 Patient reports she got up during the night due to some sort of lesion on her arm that was hurting and was trying to get to the bathroom when she thinks she tripped and fell. Patient remembers falling. She does not know if she lost consciousness however was down for quite some times and thinks she did. Patient reports she is on blood thinners. Patient reports a headache and some dizziness at this time. We will get a head CT along with lab work given patient may have been down for a prolonged amount of time. CT of the head is unchanged from recent other head CT. Labs are at patient's baseline. Discussed findings with patient. Recommended she push fluids as that may be a cause of dizziness. Patient has no open wounds to care for at this time. We did discuss that likely patient's left side of her face will swell and bruise from the hematoma on her head. Recommended hydrocortisone and topical Benadryl for insect bite on left upper arm. Patient should follow-up with her PCP in 3 to 5 days. Return to the ER with new or worsening symptoms. Patient verbalized understanding and was in agreement with the treatment plan. Chart reviewed and patient discussed with midlevel. Agree with assessment and plan. Lab Data : 05/15/22 13:54 05/15/22 13:[address] 05/15/22 12:44 IMPRESSION: 1. No evidence of intracranial hemorrhage or mass effect. 2. Mild small vessel changes. Mild parenchymal volume loss. 3. Chronic infarcts involving the LEFT parasagittal occipital junction and RIGHT cerebellum. 4. LEFT frontal scalp hematoma from recent trauma. No visualized fractures. 5. No acute intracranial findings. Laboratory Results WBC 6.3 10^3/uL (4.0-10.0) 05/15/22 13:54 RBC 5.02 10^6/uL (4.1-5.3) 05/15/22 13:54 Hgb 15.1 g/dL (11.5-15.3) 05/15/22 13:54 Hct 47.7 % (37.0-47.0) H 05/15/22 13:54 MCV 95.0 fl (81-99) 05/15/22 13:54 MCH 30.1 pg (28.0-34.0) 05/15/22 13:54 MCHC 31.7 g/dL (30.0-36.0) 05/15/22 13:54 RDW 14.3 % (12.1-15.1) 05/15/22 13:54 Plt Count 171 10^3/cmm (130-400) 05/15/22 13:54 MPV 11.9 fL (7.4-10.4) H 05/15/22 13:54 Neut % (Auto) 65.9 % 05/15/22 13:54 Lymph % (Auto) 19.6 % 05/15/22 13:54 [place] % (Auto) 9.6 % 05/15/22 13:54 Eos % (Auto) 3.9 % 05/15/22 13:54 Baso % (Auto) 0.8 % 05/15/22 13:54 Neut # (Auto) 4.17 10^3/uL (1.8-7.7) 05/15/22 13:54 Lymph # (Auto) 1.2 10^3/uL (0.8-4.8) 05/15/22 13:54 [place] # (Auto) 0.6 10^3/uL (0.2-0.9) 05/15/22 13:54 Eos # (Auto) 0.3 10^3/uL (0.0-0.8) 05/15/22 13:54 Baso # (Auto) 0.1 10^3/uL (0.0-0.1) 05/15/22 13:54 Nucleated RBC % (auto) 0 % 05/15/22 13:54 Nucleated RBCs # 0.0 /100WBC 05/15/22 13:54 Sodium 140 mmol/L (136-145) 05/15/22 13:54 Potassium 4.1 mmol/L (3.5-5.1) 05/15/22 13:54 Chloride 106 mmol/L (98-107) 05/15/22 13:54 Carbon Dioxide 25 mmol/L (22-29) 05/15/22 13:54 Anion Gap 13.1 (5-19) 05/15/22 13:54 BUN 25 mg/dL (8-23) H 05/15/22 13:54 Creatinine 0.9 mg/dL (0.5-0.9) 05/15/22 13:54 GFR Calculation Not Reportable 05/15/22 13:54 Glucose 147 mg/dL (65-115) H 05/15/22 13:54 Calculated Osmolality 297 mOsm/kg (285-295) H 05/15/22 13:54 Calcium 10.2 mg/dL (8.5-10.5) 05/15/22 13:54 Total Bilirubin 0.3 mg/dL (0.15-1.2) 05/15/22 13:54 AST 20 U/L (0-32) 05/15/22 13:54 ALT 20 U/L (0-33) 05/15/22 13:54 Alkaline Phosphatase 158 IU/L (35-105) H 05/15/22 13:54 Creatine Kinase 35 U/L (26-192) 05/15/22 13:54 Total Protein 6.2 g/dL (6.6-8.7) L 05/15/22 13:54 Albumin 4.0 g/dL (3.5-5.2) 05/15/22 13:54 Globulin 2.2 g/dL (1.3-4.6) 05/15/22 13:54 Urine Color Yellow (Yellow) 05/15/22 14:03 Urine Appearance Clear (CLEAR) 05/15/22 14:03 Urine pH 5 (5-7) 05/15/22 14:03 Ur Specific [place] 1.010 (1.005-1.030) 05/15/22 14:03 Urine Protein Neg (Negative) 05/15/22 14:03 Urine Glucose (UA) 4+ (Normal) H 05/15/22 14:03 Urine Ketones Negative (Negative) 05/15/22 14:03 Urine Blood Neg (Negative) 05/15/22 14:03 Urine Nitrate Negative (Negative) 05/15/22 14:03 Urine Bilirubin Neg (Negative) 05/15/22 14:03 Urine Urobilinogen Norm mg/dL (Negative) 05/15/22 14:03 Ur Leukocyte Esterase Negative (Negative) 05/15/22 14:03 Discharge Plan Discharge Patient Disposition: Home Clinical Impression: Fall, Head injury, acute, with loss of consciousness, Insect bite Condition: Stable Prescriptions: No Action aspirin [Adult Low Dose Aspirin] 81 mg tablet,delayed release (DR/EC) 81 mg PO DAILY@0800 0RF (DME) BIPAP MACHINE Qty: 1 0RF Rx Instructions: As directed (DME) BIPAP MASK Qty: 1 2RF Rx Instructions: As directed (DME) BIPAP SUPPLIES Qty: 1 2RF Rx Instructions: As directed (DME) Easy Plus II Test Strip See Rx Instructions .ROUTE .MEDSUPPLY Qty: 50 3RF Rx Instructions: use one strip to check blood sugars two time daily fluticasone propionate [Flonase Allergy Relief] 50 mcg/actuation spray,suspension 1 spray intranasal DAILY PRN0RF Rx Instructions: administer into each nostril levothyroxine 150 mcg capsule 150 mcg PO DAILY 0RF amiodarone 200 mg tablet 200 mg PO DAILY@0800 Qty: 90 3RF Jardiance 25 mg tablet See Rx Instructions .ROUTE .COMPLEX Qty: 90 0RF Dose Instruction: TAKE 1 TABLET BY MOUTH EVERY DAY Rx Instructions: TAKE 1 TABLET BY MOUTH EVERY DAY glimepiride 4 mg tablet 4 mg PO DAILY Qty: 90 0RF lisinopril 20 mg tablet See Rx Instructions .ROUTE .COMPLEX Qty: 90 0RF Hold Instructions: Resume on 12/02/21. Dose Instruction: TAKE 1 TABLET BY MOUTH EVERY DAY Rx Instructions: TAKE 1 TABLET BY MOUTH EVERY DAY metoprolol tartrate 50 mg tablet 50 mg PO BID@799,1999 90 Days Qty: 180 0RF pantoprazole 40 mg tablet,delayed release (DR/EC) See Rx Instructions .ROUTE .COMPLEX Qty: 90 0RF Dose Instruction: TAKE 1 TABLET BY MOUTH EVERY DAY AT 8:00AM Rx Instructions: TAKE 1 TABLET BY MOUTH EVERY DAY AT 8:00AM Xarelto 20 mg tablet See Rx Instructions .ROUTE .COMPLEX Qty: 90 0RF Dose Instruction: TAKE 1 TABLET BY MOUTH EVERY DAY Rx Instructions: TAKE 1 TABLET BY MOUTH EVERY DAY nitrofurantoin monohyd/m-cryst [Macrobid] 100 mg capsule 100 mg PO BID 30 Days Qty: 60 0RF Rx Instructions: must administer with a meal/food zonisamide [Zonegran] 100 mg capsule 500 mg PO DAILY Qty: 90 1RF (DME) blood-glucose meter [Easy Plus II Blood Glucose Met] [facility] [place] See Rx Instructions .ROUTE .MEDSUPPLY Qty: 1 0RF Rx Instructions: use meter two times a day to check blood sugar bumetanide 1 mg tablet See Rx Instructions .ROUTE .COMPLEX Qty: 90 0RF Dose Instruction: TAKE 1 TABLET BY MOUTH EVERY DAY Rx Instructions: TAKE 1 TABLET BY MOUTH EVERY DAY atorvastatin 20 mg tablet See Rx Instructions .ROUTE .COMPLEX Qty: 90 0RF Dose Instruction: TAKE 1 TABLET BY MOUTH EVERY DAY AT 8:00AM Rx Instructions: TAKE 1 TABLET BY MOUTH EVERY DAY AT 8:00AM venlafaxine [Effexor XR] 150 mg capsule,extended release 24hr 150 mg PO DAILY Qty: 30 3RF Srga-Yefs-Yfnce (vit C-biotin) 50 mg -1,250 mcg Tablet,Chewable 1 tab PO DAILY 0RF Gummies 400 mcg-35 mg- 25 mg-5 mg Tablet,Chewable 1 tab PO DAILY 0RF Spiriva with HandiHaler 18 mcg capsule, w/inhalation device 1 cap inhalation DAILY Qty: 14 0RF Rx Instructions: puncture 1 cap using device; one dose = 2 inhalations Discharge Orders: Discharge ED (Routine); Ordered 05/15/22 Ordered By: Dania Mccormick Referrals: Aretha Davies FNP [Primary Care Provider] - Discharge Diet: Usual diet Discharge Activity: Resume usual activity Patient Instructions: Opioid Safety Activity Restrictions/Additional Instructions: Continue home medications. Increase fluid intake. Apply hydrocortisone cream and topical Benadryl to insect bite. Follow-up with PCP in 3 to 5 days. Return to the ER with new or worsening symptoms. Coding Level of Care Code ED Analytical Manager for [facility] Exam Comprehensive
[2022-05-15 14:09] LABS: Basophils # 0.1 10^3/uL (0.0-0.1); Basophils % 0.8 %; Eosinophils # 0.3 10^3/uL (0.0-0.8); Eosinophils % 3.9 %; Hematocrit 47.7 % (37.0-47.0); Hemoglobin 15.1 g/dL (11.5-15.3); Lymphocytes # 1.2 10^3/uL (0.8-4.8); Lymphocytes % 19.6 %; Mean Corpuscular HGB Conc 31.7 g/dL (30.0-36.0); Mean Corpuscular Hemoglobin 30.1 pg (28.0-34.0); Mean Platelet Volume 11.9 fL (7.4-10.4); Monocytes # 0.6 10^3/uL (0.2-0.9); Monocytes % 9.6 %; Neutrophils # 4.17 10^3/uL (1.8-7.7); Neutrophils % 65.9 %; Nucleated Red Blood Cells % 0 %; Platelet Count 171 10^3/cmm (130-400); Red Blood Count 5.02 10^6/uL (4.1-5.3); Red Cell Distribution Width 14.3 % (12.1-15.1); White Blood Count 6.3 10^3/uL (4.0-10.0)
[2022-05-15 14:39] LABS: Alanine Aminotransferase 20 U/L (0-33); Alkaline Phosphatase 158 IU/L (35-105); Blood Urea Nitrogen 25 mg/dL (8-23); Calcium 10.2 mg/dL (8.5-10.5); Carbon Dioxide 25 mmol/L (22-29); Chloride 106 mmol/L (98-107); Creatine Phosphokinase 35 U/L (26-192); Creatinine Clr Calc Pharmacy 59.0103; Globulin 2.2 g/dL (1.3-4.6); Glucose 147 mg/dL (65-115); Osmolality Calculated 297 mOsm/kg (285-295); Sodium 140 mmol/L (136-145); Total Bilirubin 0.3 mg/dL (0.15-1.2); Total Protein 6.2 g/dL (6.6-8.7)
[2022-05-15 14:49] LABS: Anion Gap 13.1 (5-19); Aspartate Amino Transferase 20 U/L (0-32); Potassium 4.1 mmol/L (3.5-5.1)
[2022-05-15 15:06] LABS: Add Urine Microscopic? NO; Charge for UA Resulting for Rev
[2022-05-15 15:10] LABS: Bilirubin Urine Neg (Negative); Blood Urine Neg (Negative); Glucose Urine UA 4+ (Normal); Ketones Urine Negative (Negative); Leukocyte Esterase Urine Negative (Negative); Nitrate Urine Negative (Negative); Protein Urine Neg (Negative); Urine Appearance Clear (CLEAR); Urine Color Yellow (Yellow); Urobilinogen Urine Norm (Negative); pH Urine 5 (5-7)
== END 2022-05-15 15:38 | disposition home or self-care (01) ==
PROVIDERS: Emergency Provider Physician Assistant; PCP Registered Nurse
DX: S06.9X9A Unspecified intracranial injury with loss of consciousness of unspecified duration, initial encounter (principal); S40.862A Insect bite (nonvenomous) of left upper arm, initial encounter; S00.83XA Contusion of other part of head, initial encounter; W57.XXXA Bitten or stung by nonvenomous insect and other nonvenomous arthropods, initial encounter; W01.0XXA Fall on same level from slipping, tripping and stumbling without subsequent striking against object, initial encounter; Z79.82 Long term (current) use of aspirin; Z79.84 Long term (current) use of oral hypoglycemic drugs; I11.0 Hypertensive heart disease with heart failure; I50.9 Heart failure, unspecified; E13.9 Other specified diabetes mellitus without complications; Z86.73 Personal history of transient ischemic attack (TIA), and cerebral infarction without residual deficits; Z95.0 Presence of cardiac pacemaker; Z87.891 Personal history of nicotine dependence
CPT/HCPCS: 70450; 80053; 81003; 82550; 85025; 99284; 99291; 99292

== ENCOUNTER → 2022-05-26 11:32 | Outpatient (BNVA) | payer MEDICARE, OTHER, SELFPAY | PROVIDERS: PCP Registered Nurse; Visit Provider Registered Nurse | DX: N39.0 Urinary tract infection, site not specified (principal); I10 Essential (primary) hypertension; E13.9 Other specified diabetes mellitus without complications; E03.9 Hypothyroidism, unspecified | CPT/HCPCS: 81000 ==

== ENCOUNTER → 2022-05-28 09:57 | Outpatient (BNVA) | payer MEDICARE, OTHER, SELFPAY | PROVIDERS: PCP Registered Nurse; Visit Provider Specialist | DX: G40.309 Generalized idiopathic epilepsy and epileptic syndromes, not intractable, without status epilepticus (principal); I69.320 Aphasia following cerebral infarction; G43.711 Chronic migraine without aura, intractable, with status migrainosus | CPT/HCPCS: 64615; 99212; J0585 ==

== ENCOUNTER → 2022-07-27 10:36 | Outpatient (BNVA) | payer MEDICARE, OTHER, SELFPAY | PROVIDERS: PCP Registered Nurse; Visit Provider Internal Medicine Cardiovascular Disease | DX: I11.0 Hypertensive heart disease with heart failure (principal); I50.32 Chronic diastolic (congestive) heart failure; I48.0 Paroxysmal atrial fibrillation; Z79.01 Long term (current) use of anticoagulants; Z79.82 Long term (current) use of aspirin; G47.33 Obstructive sleep apnea (adult) (pediatric); Z95.0 Presence of cardiac pacemaker; Z86.73 Personal history of transient ischemic attack (TIA), and cerebral infarction without residual deficits; Z87.891 Personal history of nicotine dependence | CPT/HCPCS: 93280; 99214 ==

== ENCOUNTER → 2022-10-29 13:41 | Outpatient (BNVA) | payer MEDICARE, OTHER, SELFPAY | PROVIDERS: PCP Registered Nurse; Visit Provider Registered Nurse | DX: E03.9 Hypothyroidism, unspecified (principal); E13.9 Other specified diabetes mellitus without complications | CPT/HCPCS: 80053; 83036; 84443 ==

== ENCOUNTER → 2022-11-19 09:01 | Outpatient (BNVA) | payer MEDICARE, OTHER, SELFPAY | PROVIDERS: PCP Registered Nurse; Visit Provider Specialist | DX: G43.711 Chronic migraine without aura, intractable, with status migrainosus (principal) | CPT/HCPCS: 64615; J0585 ==

== ENCOUNTER → 2023-02-18 08:53 | Outpatient (BNVA) | payer MEDICARE, OTHER, SELFPAY | PROVIDERS: PCP Registered Nurse; Visit Provider Specialist | DX: G43.711 Chronic migraine without aura, intractable, with status migrainosus (principal) | CPT/HCPCS: 64615; J0585 ==

== ENCOUNTER → 2023-04-26 10:56 | Outpatient (BNVA) | payer MEDICARE, OTHER, SELFPAY | PROVIDERS: PCP Registered Nurse; Visit Provider Internal Medicine Cardiovascular Disease | DX: I11.0 Hypertensive heart disease with heart failure (principal); I50.32 Chronic diastolic (congestive) heart failure; I48.0 Paroxysmal atrial fibrillation; G47.33 Obstructive sleep apnea (adult) (pediatric); Z95.0 Presence of cardiac pacemaker; Z86.73 Personal history of transient ischemic attack (TIA), and cerebral infarction without residual deficits; Z87.891 Personal history of nicotine dependence | CPT/HCPCS: 99214 ==

== ENCOUNTER → 2023-05-21 08:07 | Outpatient (BNVA) | payer MEDICARE, OTHER, SELFPAY | PROVIDERS: PCP Registered Nurse; Visit Provider Specialist | DX: G43.711 Chronic migraine without aura, intractable, with status migrainosus (principal); E03.9 Hypothyroidism, unspecified; R41.89 Other symptoms and signs involving cognitive functions and awareness | CPT/HCPCS: 64615; 84439; 84443; 84481; 99213; J0585 ==

== ENCOUNTER → 2023-06-14 11:10 | Outpatient (BNVA) | payer MEDICARE, OTHER, SELFPAY | PROVIDERS: PCP Registered Nurse; Visit Provider Registered Nurse | DX: E11.9 Type 2 diabetes mellitus without complications (principal); E03.9 Hypothyroidism, unspecified; I10 Essential (primary) hypertension; N39.0 Urinary tract infection, site not specified | CPT/HCPCS: 81000; 83036; 84443 ==

== ENCOUNTER → 2023-09-15 11:10 | Outpatient (BNVA) | payer MEDICARE, OTHER, SELFPAY | PROVIDERS: PCP Registered Nurse; Visit Provider Registered Nurse | DX: E03.9 Hypothyroidism, unspecified (principal); E11.9 Type 2 diabetes mellitus without complications | CPT/HCPCS: 83036; 84443 ==

== ENCOUNTER 2023-10-07 15:17 | Outpatient (CLI) | payer MEDICARE, OTHER, SELFPAY ==
[2023-10-07 15:48] LABS: Basophils % 0.4 %; Eosinophils % 0.3 %; Hematocrit 42.8 % (36-47); Lymphocytes # 0.8 10^3/uL (0.8-4.8); Lymphocytes % 8.3 %; Mean Corpuscular HGB Conc 31.1 g/dL (30-55); Mean Corpuscular Hemoglobin 31.1 pg (27-33); Mean Platelet Volume 11.2 fL (7.4-10.4); Monocytes # 0.8 10^3/uL (0.2-0.9); Monocytes % 7.6 %; Neutrophils # 8.36 10^3/uL (1.8-7.7); Neutrophils % 82.7 %; Nucleated Red Blood Cells % 0 %; Platelet Count 174 10^3/cmm (157-399); Red Blood Count 4.28 10^6/uL (3.85-5.65); Red Cell Distribution Width 14.4 % (12.1-15.1); White Blood Count 10.11 10^3/uL (3.29-11.43)
[2023-10-07 16:02] LABS: D Dimer 0.54 ug/mLFEU (0-0.59)
[2023-10-07 16:05] LABS: Alanine Aminotransferase 14 U/L (0-33); Albumin Level 3.6 g/dL (3.5-5.2); Alkaline Phosphatase 133 U/L (35-105); Anion Gap 15.8 (5-19); Aspartate Amino Transferase 16 U/L (0-32); Blood Urea Nitrogen 22 mg/dL (8-23); Calcium 10.6 mg/dL (8.5-10.5); Carbon Dioxide 22 mmol/L (22-29); Chloride 105 mmol/L (98-107); Globulin 3.2 g/dL (1.3-4.6); Glucose 121 mg/dL (65-115); Osmolality Calculated 293 mOsm/kg (285-295); Potassium 3.8 mmol/L (3.5-5.1); Sodium 139 mmol/L (136-145); Total Bilirubin 0.6 mg/dL (0.15-1.2); Total Protein 6.8 g/dL (6.6-8.7)
== END 2023-10-07 15:18 | disposition home or self-care (01) ==
LOC: LAB 15:20
PROVIDERS: PCP Registered Nurse; Visit Provider Registered Nurse
DX: I10 Essential (primary) hypertension (principal); R09.02 Hypoxemia; Z11.52 Encounter for screening for COVID-19
CPT/HCPCS: 36415; 80053; 81000; 85025; 85378; 87077; 87086; 87184; 87400; 87426

== ENCOUNTER → 2023-12-08 16:30 | Outpatient (BNVA) | payer MEDICARE, OTHER, SELFPAY | PROVIDERS: PCP Registered Nurse | DX: Z45.010 Encounter for checking and testing of cardiac pacemaker pulse generator [battery] (principal) | CPT/HCPCS: 93296 ==

== ENCOUNTER → 2023-12-30 11:42 | Outpatient (BNVA) | payer MEDICARE, OTHER, SELFPAY | PROVIDERS: PCP Registered Nurse; Visit Provider Registered Nurse | DX: E13.9 Other specified diabetes mellitus without complications (principal); E03.9 Hypothyroidism, unspecified | CPT/HCPCS: 80053; 80061; 83036; 84443; 85025 ==

== ENCOUNTER 2024-03-13 23:58 | Observation (INO) | payer MEDICARE, OTHER, SELFPAY ==
[2024-03-14] VITALS (11 sets, daily range): BP systolic 151–193; BP diastolic 68–110; PULSE 60–83; RESP 16–20; TEMP 36.4–36.7; O2SAT 91–97; BMI 34.3
--- NOTE | 2024-03-14 00:09 | CTR_ITS ---
PROCEDURE INFORMATION: Exam: CTA Head With Contrast, Arteriography Exam date and time: 03/14/2024 12:25 AM Age: 78 years old Clinical indication: Stroke-like symptoms; Speech disturbance; Additional info: CVA like symptoms, aphasia resolved TECHNIQUE: Imaging protocol: Computed tomographic angiography of the head with contrast. Exam focused on the arteries. 3D rendering (Not supervised by radiologist): MIP and/or 3D reconstructed images were created by the technologist. Radiation optimization: All CT scans at this facility use at least one of these dose optimization techniques: automated exposure control; mA and/or kV adjustment per patient size (includes targeted exams where dose is matched to clinical indication); or iterative reconstruction. Contrast material: OMNI 350; Contrast volume: 100 ml; Contrast route: INTRAVENOUS (IV); COMPARISON: CT head thrombolytic [id number] 03/14/2024 12:22 AM RADIATION DOSE METRICS: Total DLP (mGy-cm): 469.5 FINDINGS: ANTERIOR CIRCULATION: Right internal carotid artery: Intracranial segment is patent with no significant stenosis. No aneurysm. Right middle cerebral artery: No occlusion or significant stenosis. No aneurysm. Right anterior cerebral artery: No occlusion or significant stenosis. No aneurysm. Left internal carotid artery: Intracranial segment is patent with no significant stenosis. No aneurysm. Left middle cerebral artery: Focal severe narrowing proximal M2 branch left middle cerebral artery. Left anterior cerebral artery: No occlusion or significant stenosis. No aneurysm. POSTERIOR CIRCULATION: Right vertebral artery: Distal right vertebral artery is hypoplastic. Left vertebral artery: No occlusion or significant stenosis. No aneurysm. Basilar artery: No occlusion or significant stenosis. No aneurysm. Right posterior cerebral artery: No occlusion or significant stenosis. No aneurysm. Left posterior cerebral artery: No occlusion or significant stenosis. No aneurysm. Brain: No definite mass, mass effect, or midline shift. Cerebral ventricles: No ventriculomegaly. Bones/joints: Unremarkable. No acute fracture. Soft tissues: Unremarkable. Other findings: Well-developed posterior communicating arteries are noted bilaterally. Well-developed posterior communicating arteries bilaterally. PROCEDURE INFORMATION: Exam: CTA Neck With Contrast Exam date and time: 03/14/2024 12:25 AM Age: 78 years old Clinical indication: Stroke-like symptoms; Speech disturbance; Additional info: CVA like symptoms, aphasia resolved TECHNIQUE: Imaging protocol: Computed tomographic angiography of the neck with contrast. Exam focused on the cervical segments of the vasculature. 3D rendering (Not supervised by radiologist): MIP and/or 3D reconstructed images were created by the technologist. Radiation optimization: All CT scans at this facility use at least one of these dose optimization techniques: automated exposure control; mA and/or kV adjustment per patient size (includes targeted exams where dose is matched to clinical indication); or iterative reconstruction. Contrast material: OMNI 350; Contrast volume: 100 ml; Contrast route: INTRAVENOUS (IV); COMPARISON: CT head thrombolytic [id number] 03/14/2024 12:22 AM and CTA chest 12/02/2021 RADIATION DOSE METRICS: Total DLP (mGy-cm): 469.5 FINDINGS: Tubes, catheters and devices: Dual lead permanent pacemaker in place. Right common carotid artery: Mild narrowing mid right common carotid artery estimated at 30%. Right internal carotid artery: No stenosis of the extracranial segment. No dissection or occlusion. Right external carotid artery: Moderate to marked narrowing at right external carotid origin. Left common carotid artery: Mild narrowing distal left common carotid artery estimated at 30%. Left internal carotid artery: No stenosis of the extracranial segment. No dissection or occlusion. Left external carotid artery: No occlusion or stenosis of the origin. Right vertebral artery: No stenosis. No dissection or occlusion. Left vertebral artery: No stenosis. No dissection or occlusion. Soft tissues: 2 cm left thyroid lesion is unchanged from CTA chest exam from 12/02/2021. No significant soft tissue swelling. Bones/joints: No acute fracture. CT/CT angio headneck* [id number] IMPRESSION: No large vessel occlusion. Focal high-grade narrowing proximal M2 branch left middle cerebral artery. IMPRESSION: Moderate to marked narrowing suggested at right external carotid artery origin. No high-grade narrowing or occlusion in remaining neck vasculature. REFERENCES: NASCET CRITERIA. The degree of stenosis in the cervical segment of the internal carotid artery is based on NASCET criteria. Normal is no stenosis. Mild is less than 50% stenosis. Moderate is 50-69% stenosis. Severe is 70% to 99% stenosis. Total occlusion is no detectable patent lumen.
--- NOTE | 2024-03-14 00:09 | CTR_ITS ---
PROCEDURE INFORMATION: Exam: CT Head Without Contrast Exam date and time: 03/14/2024 12:22 AM Age: 78 years old Clinical indication: Stroke-like symptoms; Speech disturbance; Additional info: Symptoms of acute stroke TECHNIQUE: Imaging protocol: Computed tomography of the head without contrast. Radiation optimization: All CT scans at this facility use at least one of these dose optimization techniques: automated exposure control; mA and/or kV adjustment per patient size (includes targeted exams where dose is matched to clinical indication); or iterative reconstruction. Other technique: STROKE PROTOCOL was implemented. COMPARISON: CT head wo con* [id number] 05/15/2022 1:09 PM RADIATION DOSE METRICS: Total DLP (mGy-cm): 1133.6 FINDINGS: Brain: Encephalomalacia involving portions of left temporal, parietal, and occipital lobes is again noted. Encephalomalacia again seen at lower right cerebellum. No findings of intracranial hemorrhage. Dural calcification again seen anterior middle cranial fossa on the left. Cerebral ventricles: No ventriculomegaly. Paranasal sinuses: Visualized sinuses are unremarkable. No fluid levels. Mastoid air cells: Visualized mastoid air cells are well aerated. Bones: Unremarkable. No acute fracture. Soft tissues: Unremarkable. CT/CT head thrombolytic [id number] IMPRESSION: No acute intracranial abnormality. ASSESSMENT: ASPECTS ([place] Stroke Program Early CT Score) is 10.
--- NOTE | 2024-03-14 00:09 | XRR_ITS ---
PROCEDURE INFORMATION: Exam: XR Chest Exam date and time: 03/14/2024 12:34 AM Age: 78 years old Clinical indication: Other: Stroke; Prior surgery; Surgery date: 6+ months; Surgery type: Pacer; Additional info: CVA symptoms TECHNIQUE: Imaging protocol: Radiologic exam of the chest. Views: 1 view. COMPARISON: CR XR chest 1V portable [id number] 12/07/2021 7:49 PM FINDINGS: Tubes, catheters and devices: Dual lead permanent pacemaker in place. Radiopacity overlying the midline at cervicothoracic junction corresponds to device external to the patient posteriorly on CT evaluation from the same date. Lungs: Unremarkable. No consolidation. Pleural spaces: Unremarkable. No pleural effusion. No pneumothorax. Heart/Mediastinum: Unremarkable. No cardiomegaly. Bones/joints: No acute findings. XR/XR chest 1V portable [id number] IMPRESSION: No acute findings.
[2024-03-14 00:12] LABS: Glucose Point of Care 126 mg/dL (70-110)
--- NOTE | 2024-03-14 00:26 | W.ED.NEUROSD ---
HPI - Neuro Symptoms/Deficit General: Chief Complaint: Neuro Symptoms/Deficit Stated Complaint: slurring words high bp Time Seen by Provider: 03/14/24 00:09 History of Present Illness: Patient presents to the ER with complaints of aphasia and slurring of the speech. This was sudden onset approximately 2300 tonight. Patient is getting better. Patient does have a history of a stroke in the past with no deficit. Patient also has A-fib/flutter and is on aspirin only for anticoagulation. Patient's blood pressure upon arrival 192/110, it appears patient is had a TIA but a stroke alert was called. Review of Systems General: Reports: 10 or more systems reviewed and unremarkable except in HPI and below PFSH ED PFSH: Medical History Obstructive sleep apnea Sleep apnea Type 2 diabetes mellitus Tachy-martin syndrome Non-insulin dependent diabetes mellitus -A1c (12/2019): 8.3 -Accucheks, ISS, hypoglycemia precautions -consistent carb diet as tolerated -takes metformin at home, can resume on d/c Drug-induced bradycardia Digoxin was discontinued along beta-alexandrea Atrial flutter Diastolic heart failure Generalized epilepsy CHF (congestive heart failure) Atrial fibrillation Severe obstructive sleep apnea Hypothyroidism Depressed Hypertension Atrial dysrhythmia Diabetes 1.5, managed as type 2 Sleep apnea in adult Stroke due to embolism of left middle cerebral artery -prior hx of L MCA CVA in 05/2019; did not receive tPA -has been f/u with Dr. Randall -attributed to atrial fibrillation -on ASA, statin, AC with Eliquis -has residual cognitive impairment Seizure Heart failure Paroxysmal A-fib Surgical History Status post cardiac pacemaker procedure No pertinent past surgical history Family History Sister Diabetes Father Heart disease Mother Heart disease Social History Smoking and tobacco/nicotine status: former use of tobacco/nicotine Alcohol intake: never Substance/Drug Use: never NIH stroke score NIHSS: Level Of Consciousness - 1a: 0 Level Of Consciousness Questions - 1b: Both Correct Level Of Consciousness Commands - 1c: Both Correct Best Gaze - 2: Normal Visual Pelaez - 3: No Visual Loss Facial Palsy - 4: Normal Motor Arm Right - 5: No Drift Motor Arm Left - 5: No Drift Motor Leg Right - 6: No Drift Motor Leg Left - 6: No Drift Limb Ataxia - 7: Absent Sensory - 8: Normal Best Language - 9: No Aphasia Dysarthia - 10: Normal Extinction And Inattention - 11: 0 Score: Total Score: 0 Physical Exam Const: COMMON NORMALS: no acute distress, average body habitus, patient oriented x3, no limitations, healthy appearing, alert and well nourished HENMT: COMMON NORMALS: normocephalic, atraumatic, hearing grossly normal bilaterally, external ears normal, Normal external nose present, moist oral mucous membranes and oropharynx normal HEAD & SCALP: normocephalic and atraumatic NOSE: Normal external nose present EXTERNAL EAR: Yes external ears normal Eye: COMMON NORMALS: Equal, round and reactive pupils present, EOMs intact bilaterally, conjunctivae normal and no scleral icterus CONJUNCTIVA: Yes conjunctivae normal PUPIL: Yes Equal, round and reactive pupils present Neck/C-Spine: COMMON NORMALS: full ROM, no lymphadenopathy, supple, no meningeal signs, no JVD and Thyroid normal THYROID: Thyroid normal Chest: COMMONS NORMALS: normal inspection of the chest and normal palpation of entire chest wall Resp: COMMON NORMALS: normal respiratory effort, No retractions, No use of accessory muscles and clear to auscultation bilaterally AUSCULTATION: clear to auscultation bilaterally Cardio: COMMON NORMALS: no JVD, regular rate, regular rhythm, S1 normal heart sound present, S2 normal heart sound present, No gallops present (Cardio), No clicks present (Cardio), No murmurs present (Cardio) and No rub (Cardio) RATE: regular rate RHYTHM: regular rhythm HEART SOUNDS: S1 normal heart sound present and S2 normal heart sound present GI: COMMON NORMALS: Normal to inspection, nondistended, normoactive bowel sounds present, Soft to palpation, non-tender, No hepatosplenomegaly present and no masses PALPATION: Yes Soft to palpation and Yes No hepatosplenomegaly present Extremity: OTHER: Negative for bilateral lower extremity edema Neuro: COMMON NORMALS: patient oriented x3 SENSORIUM/ORIENTATION: Yes alert MENINGEAL SIGNS: Yes no meningeal signs OTHER: NIH 0 no focal deficit noted Course Vital Signs: Vital signs: Vital Signs Temperature 98.0 F 05/21/24 00:03 Pulse Rate 67 03/14/24 00:03 Blood Pressure 192/110 03/14/24 00:03 Pulse Oximetry 95 03/14/24 00:03 Oxygen Delivery Me thod Room Air 03/14/24 00:03 MDM - Neuro Symptoms/Deficit Medical Decision Making Stroke alert was called Dr. Randall was notified she said she is patient is resolving speech we will not treat with TNKase we will admit for further evaluation and treatment as a TIA. Dr. Jones was notified who agrees for observation further evaluation and treatment Differential Diagnosis Likely transient cerebral ischemia; Unlikely carpal tunnel syndrome, convulsions, delirium, subarachnoid hemorrhage, peripheral neuropathy, cerebrovascular accident or multiple sclerosis Medical Records I reviewed the patient's medical records. Lab Data I reviewed the patient's lab results. 03/14/24 00:15 03/14/24 00:[address] 03/14/24 00:09 IMPRESSION: No acute intracranial abnormality. ASSESSMENT: ASPECTS ([place] Stroke Program Early CT Score) is 10. Head/Neck CTA 03/14/24 00:09 IMPRESSION: No large vessel occlusion. Focal high-grade narrowing proximal M2 branch left middle cerebral artery. IMPRESSION: Moderate to marked narrowing suggested at right external carotid artery origin. No high-grade narrowing or occlusion in remaining neck vasculature. REFERENCES: NASCET CRITERIA. The degree of stenosis in the cervical segment of the internal carotid artery is based on NASCET criteria. Normal is no stenosis. Mild is less than 50% stenosis. Moderate is 50-69% stenosis. Severe is 70% to 99% stenosis. Total occlusion is no detectable patent lumen. Laboratory Results WBC 6.78 10^3/uL (3.29-11.43) 03/14/24 00:15 RBC 4.64 10^6/uL (3.85-5.65) 03/14/24 00:15 Hgb 14.50 g/dL (11.27-16.99) 03/14/24 00:15 Hct 45.5 % (36-47) 03/14/24 00:15 MCV 98.1 fl (85-98) H 03/14/24 00:15 MCH 31.3 pg (27-33) 03/14/24 00:15 MCHC 31.9 g/dL (30-55) 03/14/24 00:15 RDW 14.4 % (12.1-15.1) 03/14/24 00:15 Plt Count 230 10^3/cmm (157-399) 03/14/24 00:15 MPV 10.6 fL (7.4-10.4) H 03/14/24 00:15 Neut % (Auto) 53.3 % 03/14/24 00:15 Lymph % (Auto) 32.7 % 03/14/24 00:15 [place] % (Auto) 9.6 % 03/14/24 00:15 Eos % (Auto) 2.8 % 03/14/24 00:15 Baso % (Auto) 0.7 % 03/14/24 00:15 Neut # (Auto) 3.61 10^3/uL (1.8-7.7) 03/14/24 00:15 Lymph # (Auto) 2.2 10^3/uL (0.8-4.8) 03/14/24 00:15 [place] # (Auto) 0.7 10^3/uL (0.2-0.9) 03/14/24 00:15 Eos # (Auto) 0.2 10^3/uL (0.0-0.8) 03/14/24 00:15 Baso # (Auto) 0.1 10^3/uL (0.0-0.1) 03/14/24 00:15 Nucleated RBC % (auto) 0 % 03/14/24 00:15 Nucleated RBCs # 0.0 /100WBC 03/14/24 00:15 PT 12.50 SECONDS (12.1-14.9) 03/14/24 00:15 INR 0.91 (0.8-1.2) 03/14/24 00:15 APTT 25.8 SECONDS (23.9-36.7) 03/14/24 00:15 Sodium 143 mmol/L (136-145) 03/14/24 00:15 Potassium 4.4 mmol/L (3.5-5.1) 03/14/24 00:15 Chloride 108 mmol/L (98-107) H 03/14/24 00:15 Carbon Dioxide 25 mmol/L (22-29) 03/14/24 00:15 Anion Gap 14.4 (5-19) 03/14/24 00:15 BUN 20 mg/dL (8-23) 03/14/24 00:15 Creatinine 1.1 mg/dL (0.5-0.9) H 03/14/24 00:15 GFR Calculation Not Reportable 03/14/24 00:15 Glucose 133 mg/dL (65-115) H 03/14/24 00:15 POC Glucose 126 mg/dL (70-110) H 03/14/24 00:06 Calculated Osmolality 301 mOsm/kg (285-295) H 03/14/24 00:15 Calcium 10.2 mg/dL (8.5-10.5) 03/14/24 00:15 Magnesium 2.1 mg/dL (1.7-2.3) 03/14/24 00:15 Total Bilirubin 0.2 mg/dL (0.15-1.2) 03/14/24 00:15 AST 16 U/L (0-32) 03/14/24 00:15 ALT 14 U/L (0-33) 03/14/24 00:15 Alkaline Phosphatase 143 U/L (35-105) H 03/14/24 00:15 Troponin T Baseline 26 ng/L (0-10) H 03/14/24 00:15 C-Reactive Protein 8.1 mg/L (0.0-4.9) H 03/14/24 00:15 Total Protein 6.5 g/dL (6.6-8.7) L 03/14/24 00:15 Albumin 4.0 g/dL (3.5-5.2) 03/14/24 00:15 Globulin 2.5 g/dL (1.3-4.6) 03/14/24 00:15 Ethyl Alcohol < 10 mg/dL (0-10) 03/14/24 00:15 All radiology interpretation(s) finalized by discharge Discharge Plan Discharge Patient Disposition: Placed in Observation Clinical Impression: Transient cerebral ischemia, Hypertension, Atrial fibrillation Condition: Stable Prescriptions: No Action aspirin [Adult Low Dose Aspirin] 81 mg tablet,delayed release (DR/EC) 81 mg PO DAILY@0800 (DME) BIPAP MACHINE Qty: 1 0RF Rx Instructions: As directed (DME) BIPAP MASK Qty: 1 2RF Rx Instructions: As directed (DME) BIPAP SUPPLIES Qty: 1 2RF Rx Instructions: As directed (DME) Easy Plus II Test Strip See Rx Instructions .ROUTE .MEDSUPPLY Qty: 50 3RF Rx Instructions: use one strip to check blood sugars two time daily fluticasone propionate [Flonase Allergy Relief] 50 mcg/actuation spray,suspension 1 spray intranasal DAILY PRN Rx Instructions: administer into each nostril Jardiance 25 mg tablet See Rx Instructions .ROUTE .COMPLEX Qty: 90 1RF Dose Instruction: TAKE ONE TABLET BY MOUTH DAILY Rx Instructions: TAKE ONE TABLET BY MOUTH DAILY levothyroxine 125 mcg capsule 125 mcg PO DAILY 90 Days Qty: 90 0RF Xarelto 20 mg tablet See Rx Instructions .ROUTE .COMPLEX Qty: 90 1RF Dose Instruction: TAKE ONE TABLET BY MOUTH DAILY Rx Instructions: TAKE ONE TABLET BY MOUTH DAILY Spiriva with HandiHaler 18 mcg capsule, w/inhalation device 1 cap inhalation DAILY PRN Rx Instructions: puncture 1 cap using device; one dose = 2 inhalations atorvastatin 20 mg tablet 20 mg PO BEDTIME 90 Days Qty: 90 3RF (DME) blood-glucose meter [Easy Plus II Blood Glucose Met] [facility] [place] See Rx Instructions .ROUTE .MEDSUPPLY Qty: 1 0RF Rx Instructions: use meter two times a day to check blood sugar amiodarone 200 mg tablet 200 mg PO DAILY@0800 Qty: 90 3RF bumetanide 1 mg tablet 1 mg PO DAILY PRN (Reason: edema) Qty: 90 0RF zonisamide 100 mg capsule See Rx Instructions .ROUTE .COMPLEX Qty: 150 1RF Dose Instruction: TAKE 5 CAPSULES BY MOUTH DAILY Rx Instructions: TAKE 5 CAPSULES BY MOUTH DAILY venlafaxine 150 mg capsule,extended release 24hr See Rx Instructions .ROUTE .COMPLEX Qty: 30 3RF Dose Instruction: TAKE ONE CAPSULE BY MOUTH EVERY DAY Rx Instructions: TAKE ONE CAPSULE BY MOUTH EVERY DAY amlodipine 5 mg tablet 7.5 mg PO DAILY Qty: 135 2RF glimepiride 4 mg tablet See Rx Instructions .ROUTE .COMPLEX Qty: 90 0RF Dose Instruction: TAKE ONE TABLET BY MOUTH EVERY DAY Rx Instructions: TAKE ONE TABLET BY MOUTH EVERY DAY lisinopril 40 mg tablet See Rx Instructions .ROUTE .COMPLEX Qty: 90 0RF Dose Instruction: TAKE ONE TABLET BY MOUTH EVERY DAY Rx Instructions: TAKE ONE TABLET BY MOUTH EVERY DAY pantoprazole 40 mg tablet,delayed release (DR/EC) See Rx Instructions .ROUTE .COMPLEX Qty: 90 0RF Dose Instruction: TAKE ONE TABLET BY MOUTH DAILY AT 8am Rx Instructions: TAKE ONE TABLET BY MOUTH DAILY AT 8am metoprolol tartrate 50 mg tablet See Rx Instructions .ROUTE .COMPLEX Qty: 180 0RF Dose Instruction: TAKE ONE TABLET BY MOUTH TWICE DAILY AT 8am AND 8pm Rx Instructions: TAKE ONE TABLET BY MOUTH TWICE DAILY AT 8am AND 8pm Tyyk-Jksa-Yfflt (vit C-biotin) 50 mg -1,250 mcg Tablet,Chewable 1 tab PO DAILY Gummies 400 mcg-35 mg- 25 mg-5 mg Tablet,Chewable 1 tab PO DAILY Referrals: Aretha Davies, STEFANI [Primary Care Provider] - Coding Level of Care Code ED Piece Dyeing Machine Tender for Morgan Sanchez
[2024-03-14 00:30] LABS: Basophils # 0.1 10^3/uL (0.0-0.1); Basophils % 0.7 %; Eosinophils # 0.2 10^3/uL (0.0-0.8); Eosinophils % 2.8 %; Hematocrit 45.5 % (36-47); Lymphocytes # 2.2 10^3/uL (0.8-4.8); Lymphocytes % 32.7 %; Mean Corpuscular HGB Conc 31.9 g/dL (30-55); Mean Corpuscular Hemoglobin 31.3 pg (27-33); Mean Corpuscular Volume 98.1 fl (85-98); Mean Platelet Volume 10.6 fL (7.4-10.4); Monocytes # 0.7 10^3/uL (0.2-0.9); Monocytes % 9.6 %; Neutrophils # 3.61 10^3/uL (1.8-7.7); Neutrophils % 53.3 %; Nucleated Red Blood Cells % 0 %; Platelet Count 230 10^3/cmm (157-399); Red Blood Count 4.64 10^6/uL (3.85-5.65); Red Cell Distribution Width 14.4 % (12.1-15.1); White Blood Count 6.78 10^3/uL (3.29-11.43)
[2024-03-14 00:40] LABS: Troponin(5th) Baseline 26 ng/L (0-10)
[2024-03-14 00:43] LABS: Alanine Aminotransferase 14 U/L (0-33); Alkaline Phosphatase 143 U/L (35-105); Aspartate Amino Transferase 16 U/L (0-32); Blood Urea Nitrogen 20 mg/dL (8-23); C Reactive Protein 8.1 mg/L (0.0-4.9); Calcium 10.2 mg/dL (8.5-10.5); Carbon Dioxide 25 mmol/L (22-29); Chloride 108 mmol/L (98-107); Globulin 2.5 g/dL (1.3-4.6); Glucose 133 mg/dL (65-115); Magnesium 2.1 mg/dL (1.7-2.3); Osmolality Calculated 301 mOsm/kg (285-295); Sodium 143 mmol/L (136-145); Total Bilirubin 0.2 mg/dL (0.15-1.2); Total Protein 6.5 g/dL (6.6-8.7)
[2024-03-14 00:46] LABS: INR 0.91 (0.8-1.2); Partial Thromboplastin Time 25.8 SECONDS (23.9-36.7)
--- NOTE | 2024-03-14 00:46 | ECG_ITS ---
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 Measurements Intervals [place] Rate: 63 P: -16 VA: 247 QRS: -12 QRSD: 101 T: 25 QT: 447 QTc: 461 Interpretive Statements ELECTRONIC ATRIAL PACEMAKER MODERATE VOLTAGE CRITERIA FOR LVH, CONSIDER NORMAL VARIANT [MEETS CRITERIA IN ONE OF: R(aVL), S(V1), R(V5), R(V5/V6)+S(V1)] POSSIBLE SEPTAL MYOCARDIAL INFARCTION , OF INDETERMINATE AGE [30 ms Q WAVE IN V1/V2] Compared to ECG 04/22/2022 05:07:29 Ventricular premature complex(es) no longer present Myocardial infarct finding still present Electronically Signed On 03-15-2024 0:18:58 CDT by Micah Coleman M.D. [email or web address]
[2024-03-14 00:47] LABS: Alcohol Level < 10 mg/dL (0-10); Anion Gap 14.4 (5-19); Creatinine Clr Calc Pharmacy 49.0386; Potassium 4.4 mmol/L (3.5-5.1)
--- NOTE | 2024-03-14 01:30 | P.HP_ITS ---
Providers/Chief Complaint 2 Primary Care Provider: STEFANI Villaseñor Chief Complaint: slurring words high bp headache History of Present Illness Gianluca Goode is a 78 year old female With past medical history of with past medical history of obstructive sleep apnea, type 2 diabetes mellitus, tachybradycardia syndrome status post pacemaker, atrial flutter, diastolic heart failure, generalized epilepsy, atrial fibrillation, hypothyroidism, depression, hypertension, previous stroke 2018, presenting to the hospital today with complaint of aphasia and slurring of the speech. This started suddenly around 11:00 tonight. On arrival to ER code stroke was called. Patient's symptoms have resolved at this time however has a mild right-sided facial droop which family says is new. She does not have any word finding difficulty. She says she has a headache. Patient says she missed to take her medications for 1 day 2 weeks ago however has been compliant for the most part. Patient does have a history of A-fib and is chronically on Xarelto. No other anticoagulant identified in chart. He denies nausea vomiting diarrhea at this time. CT head was obtained negative for stroke. CTA head and neck was obtained which showed no large vessel occlusion. Focal high-grade narrowing proximal M2 branch left middle cerebral artery.. Discussed with Dr. Randall. She recommends every hour neurochecks. Secondary to being on Xarelto and having a stenosis patient not a candidate for TNKase at this time. She recommends to admit for TIA and allow for permissive hypertension for 24 hours. Medications/Allergies Home Medications Medication Instructions Recorded Confirmed Last Taken Type BIPAP MACHINE #1 ea 12/05/19 12/30/23 Unknown Rx BIPAP MASK #1 ea 12/05/19 12/30/23 Unknown Rx BIPAP SUPPLIES #1 ea 12/05/19 12/30/23 Unknown Rx aspirin 81 mg tablet,delayed 81 mg PO DAILY@0800 12/08/19 12/30/23 03/04/21 History release (Adult Low Dose Aspirin) blood-glucose meter (Easy Plus II #1 ea 05/23/20 12/30/23 Unknown Rx Blood Glucose Meter) blood sugar diagnostic (Easy Plus #50 ea 04/15/21 12/30/23 Unknown Rx II Test strips) PNV 153-FA 400 mcg-om3 35 mg-dha 1 tab PO DAILY 11/13/21 12/30/23 Unknown History 25 mg-epa 5 mg-fish oil chew tablet ( Gummies) vitamin C 50 mg-biotin 1,250 mcg 1 tab PO DAILY 11/13/21 12/30/23 Unknown History chewable tablet (Vtmc-Xojy-Zatxk (vit C-biotin)) fluticasone propionate 50 1 spray intranasal DAILY PRN 01/23/22 12/30/23 Unknown History mcg/actuation nasal spray,suspension (Flonase Allergy Relief) tiotropium bromide 18 mcg capsule 1 cap inhalation DAILY PRN 07/27/22 12/30/23 Unknown History with inhalation device (Spiriva with HandiHaler) amiodarone 200 mg tablet 200 mg PO DAILY@0800 #90 tabs 01/08/23 12/30/23 Unknown Rx atorvastatin 20 mg tablet 20 mg PO BEDTIME 90 days #90 tabs 09/15/23 12/30/23 Unknown Rx bumetanide 1 mg tablet 1 mg PO DAILY PRN edema #90 tabs 10/07/23 12/30/23 Unknown Rx empagliflozin 25 mg tablet See Rx Instructions .Route 12/31/23 12/31/23 Unknown Rx (Jardiance) .COMPLEX #90 tabs levothyroxine 125 mcg capsule 125 mcg PO DAILY 90 days #90 caps 12/31/23 12/31/23 Unknown Rx rivaroxaban 20 mg tablet (Xarelto) See Rx Instructions .Route 12/31/23 12/31/23 Unknown Rx .COMPLEX #90 tabs venlafaxine 150 mg See Rx Instructions .Route 01/20/24 Unknown Rx capsule,extended release 24 hr .COMPLEX #30 caps zonisamide 100 mg capsule See Rx Instructions .Route 01/20/24 Unknown Rx .COMPLEX #150 caps amlodipine 5 mg tablet 7.5 mg (1.5 x 5 mg) PO DAILY #135 02/21/24 Unknown Rx tabs glimepiride 4 mg tablet See Rx Instructions .Route 03/13/24 Unknown Rx .COMPLEX #90 tabs lisinopril 40 mg tablet See Rx Instructions .Route 03/13/24 Unknown Rx .COMPLEX #90 tabs metoprolol tartrate 50 mg tablet See Rx Instructions .Route 03/13/24 Unknown Rx .COMPLEX #180 tabs pantoprazole 40 mg tablet,delayed See Rx Instructions .Route 05/20/24 Unknown Rx release .COMPLEX #90 tabs Allergies Allergy/AdvReac Type Severity Reaction Status Date / Time Penicillins Allergy Unknown Unknown Verified 03/14/24 00:12 tetanus and diphtheria Allergy Unknown Verified 03/14/24 00:12 toxoids penicillin G procaine AdvReac unknown Verified 03/14/24 00:12 PFSH Acute 2 PFSH: Medical History Obstructive sleep apnea Sleep apnea Type 2 diabetes mellitus Tachy-martin syndrome Non-insulin dependent diabetes mellitus -A1c (12/2019): 8.3 -Accucheks, ISS, hypoglycemia precautions -consistent carb diet as tolerated -takes metformin at home, can resume on d/c Drug-induced bradycardia Digoxin was discontinued along beta-alexandrea Atrial flutter Diastolic heart failure Generalized epilepsy CHF (congestive heart failure) Atrial fibrillation Severe obstructive sleep apnea Hypothyroidism Depressed Hypertension Atrial dysrhythmia Diabetes 1.5, managed as type 2 Sleep apnea in adult Stroke due to embolism of left middle cerebral artery -prior hx of L MCA CVA in 05/2019; did not receive tPA -has been f/u with Dr. Randall -attributed to atrial fibrillation -on ASA, statin, AC with Eliquis -has residual cognitive impairment Seizure Heart failure Paroxysmal A-fib Surgical History Status post cardiac pacemaker procedure No pertinent past surgical history Family History Sister Diabetes Father Heart disease Mother Heart disease Social History Smoking and tobacco/nicotine status: former use of tobacco/nicotine Alcohol intake: never Substance/Drug Use: never Vitals/I&O/Wt Last Vital Signs Temp 98.0 F 03/14/24 00:03 Pulse 60 03/14/24 01:03 Resp 18 03/14/24 01:03 BP 185/83 03/14/24 01:03 Pulse Ox 93 03/14/24 01:03 O2 Del Method Room Air 03/14/24 01:03 Weight last 48 hrs Weight 92.986 kg Physical Exam 2 Narrative: General: Alert oriented x3, patient seen sitting up in bed, sister and brother in law at bedside HEENT: Normocephalic, atraumatic, EOMI, breathing normally on room air, no acute respiratory distress Cardio: Regular rate rhythm, normal S1-S2 Respiratory: Good bilateral air entry, no wheezes no rhonchi appreciated GI: Abdomen soft, nontender,bowel sounds + Extremities: No edema bilateral lower extremities Neuro: CN 2-12 intact, sensation intact 5/5 UE b/l LE B/L, Strength 5/5 b/l UE LE. Heal to corrigan normal, finger to nose normal. mild right sided facial droop noted. no dysdiadochokinesia Data 03/14/24 00:15 03/14/24 00:15 A&P Assessment and plan (1) Hypertension: Qualifiers: Hypertension type: essential hypertension Qualified Code(s): I10 - Essential (primary) hypertension (2) Hypothyroidism: Qualifiers: Hypothyroidism type: unspecified Qualified Code(s): E03.9 - Hypothyroidism, unspecified (3) GERD (gastroesophageal reflux disease): Qualifiers: Esophagitis presence: esophagitis presence not specified Qualified Code(s): K21.9 - Gastro-esophageal reflux disease without esophagitis (4) UTI (urinary tract infection): (5) Chronic migraine without aura, intractable, with status migrainosus: (6) Transient cerebral ischemia: Qualifiers: Transient cerebral ischemia type: unspecified Qualified Code(s): G45.9 - Transient cerebral ischemic attack, unspecified (7) 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): (8) Dementia: Qualifiers: Dementia type: unspecified type Dementia behavioral disturbance: w [facility] behavioral disturbance Qualified Code(s): F03.90 - Unspecified dementia without behavioral disturbance (9) Sleep apnea: (10) Atrial fibrillation: (11) Fall: Plan #TIA #Hx of MCA stroke 2019 with residual deficits #Chronic migraines currently Botox treatment every 12 weeks #Atrial fibrillation, chronically on xarelto #Tachybrady syndrome s/p pacemaker #Chronic diastolic HF #Type 2 DM, non insulin dependent #HTN #Hypothyroidism - Allow permissive htn for 24 hours - COntinue on aspirin and xarelto - Atorvastatin 40 daily - Check echo, lipid panel, hb1ac - Q1H neurochecks - Check echo - PT/OT - Continue amiodarone daily - duoneb q6h prn - Hold lisinopril, metoprolol, bumex - Hold jardiance - Place on gentle fluid hydration ns 75 cc/hr - Continue protonix 40 daily - ORder ibuprofen 400 mg x1 for headache. Patient has chronic migraines and has been on Botox treatment in the past. Last saw Dr. Randall in April of last year. She has been tried on antiepileptics, anticonvulsants, beta-blockers and currently on zonisamide. Patient's neurological symptoms may be secondary to headache at this time as well. ?Ct head, cta Head and neck reviewed. Does have proximal stenosis at M2 level. Discussed with Dr. Randall, pt not a candidate for invasive procedure. Full code DVT prophylaxis: Heparin SQ twice daily Attestations 2 Medical Necessity Statement*: TIA, expect < 48 hour stay Diagnoses Essential hypertension I10 Hypertension type: essential hypertension Hypothyroidism, unspecified type E03.9 Hypothyroidism type: unspecified Gastroesophageal reflux disease, unspecified whether esophagitis present K21.9 Esophagitis presence: esophagitis presence not specified UTI (urinary tract infection) N39.0 Chronic migraine without aura, intractable, with status migrainosus G43.711 Transient cerebral ischemia G45.9 Transient cerebral ischemia type: unspecified 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
--- NOTE | 2024-03-14 01:44 | USCV_ITS ---
Gianluca Goode Age: 78 Gender: F : 1945 Exam Date: 03/14/2024 02:16 Ordering Phys: Dipika Jones MD Technologist: CARLY [place] [facility] [place]ication: aphasia, slurring of speech; prior history of CVA, no deficits, history of atrial fibrillation. History of pacemaker. BP: 185 / 83 HR: 58 Rhythm: Paced Technical Quality: Adequate MEASUREMENTS (Male / Female) Normal Values 2D ECHO LV Diastolic Diameter PLAX 4.0 cm 4.2 - 5.9 / 3.9 - 5.3 cm IVS Diastolic Thickness 1.6 cm 0.6 - 1.0 / 0.6 - 0.9 cm IVS Systolic Thickness 2.0 cm LVPW Diastolic Thickness 1.6 cm 0.6 - 1.0 / 0.6 - 0.9 cm LVPW Systolic Thickness 1.9 cm LVOT Diameter 1.7 cm LV Ejection Fraction 2D Teich 58.6 % LV Ejection Fraction MOD 2C 63.5 % LV Ejection Fraction 2C AL 65.6 % LA Diameter 4.3 cm LA Sys Volume AL 108.3 cm cubed LA Sys Volume Index AL 51.5 cm cubed/m squared Aorta at Sinotubular Diameter 2.8 cm IVC Diameter 1.6 cm M-MODE LA Ao Ratio MM 1.4 AV Cusp Separation MM 1.6 cm DOPPLER AV Peak Velocity 111.0 cm/s LVOT Peak Velocity 81.0 cm/s AV Area Cont Eq vti 1.8 cm squared AV Area Cont Eq pk 1.6 cm squared MV Area PHT 3.6 cm squared Mitral E to A Ratio 1.3 TR Peak Velocity 211.0 cm/s TR Peak Gradient 17.8 mmHg TV Peak E Velocity 34.0 cm/s Right Atrial Pressure 10.0 mmHg Pulmonary Artery Systolic Pressu 27.8 mmHg PV Peak Velocity 87.0 cm/s FINDINGS Left Ventricle Moderate concentric left ventricular hypertrophy. Normal LV ejection fraction of 64%.no regional wall motion abnormalities. Grade III/IV diastolic dysfunction (restrictive filling pattern), severely elevated filling pressures. Right Ventricle Pacemaker wire is noted Right Atrium Pacemaker wire is noted Left Atrium Severe left atrial enlargement with a systolic volume index of 51 ml Mitral Valve Trace mitral valve regurgitation. Aortic Valve Mild aortic valve regurgitation. Tricuspid Valve Trace to mild tricuspid valve regurgitation. Pulmonic Valve Moderate pulmonary valve regurgitation. Pericardium No pericardial effusion. Aorta Normal ascending aorta dimension. IVC Normal inferior vena cava. CONCLUSIONS Moderate concentric left ventricular hypertrophy. Normal LV ejection fraction of 64%.no regional wall motion abnormalities. Grade III/IV diastolic dysfunction (restrictive filling pattern), severely elevated filling pressures. Severe left atrial enlargement with a systolic volume index of 51 ml. Trace mitral valve regurgitation. Mild aortic valve regurgitation. Moderate pulmonary valve regurgitation. Trace to mild tricuspid valve regurgitation. Estimated pulmonary artery peak systolic pressure 28 mmHg There is no pericardial effusion. There are no intracardiac masses. Pacemaker wire in the right atrium and right ventricle Compared to the study from 11/18/2021, there is more pronounced dilatation of the left atrium. Dr Micah Coleman MD [facility] (Electronically Signed) Final Date: 16 Mar 2024 00:09 S
[2024-03-14 01:56] LABS: Thyroid Stimulating Hormone 5.84 uIU/mL (0.27-4.20)
[2024-03-14 02:17] LABS: Add Urine Culture? Yes; Add Urine Microscopic? YES; Bacteria Urine 4+ /hpf; Bilirubin Urine Neg (Negative); Blood Urine Neg (Negative); Glucose Urine UA 4+ (Normal); Ketones Urine Negative (Negative); Leukocyte Esterase Urine Negative (Negative); Mucus Urine 1+ /hpf; Nitrate Urine Positive (Negative); Protein Urine Neg (Negative); Urine Appearance Hazy (CLEAR); Urine Color Yellow (Yellow); Urobilinogen Urine Neg (Negative); pH Urine 6 (5-7)
[2024-03-14 02:21] LABS: Amphetamines Screen Urine Negative (Negative); Barbiturates Screen Urine Negative (Negative); Benzodiazepines Screen Urine Negative (Negative); Cocaine Screen Urine Negative (Negative); Opiate Screen Urine Negative (Negative); PCP Screen Urine Negative (Negative); THC Screen Urine Negative (Negative)
[2024-03-14 02:28] LABS: Estmated Average Glucose 146; Hemoglobin A1C 6.7 % (4.0-6.0)
[2024-03-14 02:47] LABS: Troponin 5 2HR 26.24 ng/L (0-10); Troponin 5 2HR Delta 0.24 ABS# (0-10)
--- NOTE | 2024-03-14 03:15 | ECG_ITS ---
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 Measurements Intervals [place] Rate: 75 P: -15 HI: 289 QRS: 8 QRSD: 109 T: 41 QT: 422 QTc: 472 Interpretive Statements ELECTRONIC ATRIAL PACEMAKER MINIMAL VOLTAGE CRITERIA FOR LVH, CONSIDER NORMAL VARIANT [MEETS CRITERIA IN ONE OF: R(aVL), S(V1), R(V5), R(V5/V6)+S(V1)] SEPTAL MYOCARDIAL INFARCTION , OF INDETERMINATE AGE [40+ ms Q WAVE IN V1/V2] Compared to ECG 03/14/2024 00:46:12 No significant changes Electronically Signed On 03-15-2024 0:29:10 CDT by Micah Coleman M.D. [id number]
--- NOTE | 2024-03-14 03:25 | PC.NURSE ---
Patient does not know her home medications and does not have a list with her. Patient states everything on there should be up to date because they updated it not that long ago.
[2024-03-14] MEDS: acetaminophen 325 mg Tablet 650 MG PO (03:57)
[2024-03-14] MEDS: sodium chloride 0.9% 1,000 ML 75 ML IV (03:57)
[2024-03-14 06:17] LABS: Troponin 5 6HR 25.41 ng/L (0-10)
[2024-03-14 06:21] LABS: Troponin 5 6HR Delta -0.59 ng/L (0-12)
[2024-03-14 06:38] LABS: Glucose Point of Care 120 mg/dL (70-110)
--- NOTE | 2024-03-14 07:43 | ECG_ITS ---
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 Measurements Intervals [place] Rate: 78 P: -58 NM: 362 QRS: 3 QRSD: 104 T: 30 QT: 407 QTc: 465 Interpretive Statements ELECTRONIC ATRIAL PACEMAKER MODERATE VOLTAGE CRITERIA FOR LVH, CONSIDER NORMAL VARIANT [MEETS CRITERIA IN ONE OF: R(aVL), S(V1), R(V5), R(V5/V6)+S(V1)] POSSIBLE SEPTAL MYOCARDIAL INFARCTION , PROBABLY OLD [30 ms Q WAVE IN V1/V2] ABNORMAL RHYTHM ECG Compared to ECG 03/14/2024 03:15:13 No significant changes Electronically Signed On 03-15-2024 0:29:21 CDT by Micah Coleman M.D. [id number]
--- NOTE | 2024-03-14 07:48 | PC.NURSE ---
Patient states that she has a CPAP at home but does not use it. Patient states she is the primary caregiver for her and that her two grandchildren live with her, but they are older.
[2024-03-14] MEDS: rivaroxaban 10 mg Tablet 20 MG PO (09:08)
[2024-03-14] MEDS: levothyroxine 125 mcg Tablet PO (09:08)
[2024-03-14] MEDS: venlafaxine ER (24HR) 150 mg Capsule PO (09:08)
[2024-03-14] MEDS: aspirin 81 mg EC Tablet PO (09:08)
[2024-03-14] MEDS: metoprolol tartrate 50 mg Tablet PO (09:08)
[2024-03-14] MEDS: amiodarone 200 mg Tablet PO (09:09)
[2024-03-14] MEDS: pantoprazole DR 40 mg Tablet PO (09:09)
--- NOTE | 2024-03-14 09:44 | P.DS_ITS ---
Discharge Providers Date of Admission: 03/14/24 01:31 Date of Discharge: March 14, 2024 Attending Provider at Admission: Dipika Jones MD Attending Provider at Discharge: Oanh Amor MD Primary Care Provider: STEFANI Villaseñor Diagnoses at Discharge Discharge Diagnosis (1) Hypertension: Status: Acute Qualifiers: Hypertension type: essential hypertension Qualified Code(s): I10 - Essential (primary) hypertension (2) Hypothyroidism: Status: Acute Qualifiers: Hypothyroidism type: unspecified Qualified Code(s): E03.9 - Hypothyroidism, unspecified (3) GERD (gastroesophageal reflux disease): Status: Acute Qualifiers: Esophagitis presence: esophagitis presence not specified Qualified Code(s): K21.9 - Gastro-esophageal reflux disease without esophagitis (4) UTI (urinary tract infection): Status: Acute (5) Chronic migraine without aura, intractable, with status migrainosus: Status: Acute (6) Transient cerebral ischemia: Status: Acute Qualifiers: Transient cerebral ischemia type: unspecified Qualified Code(s): G45.9 - Transient cerebral ischemic attack, unspecified (7) 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): Status: Acute (8) Dementia: Status: Acute Qualifiers: Dementia behavioral disturbance: without behavioral disturbance Dementia type: unspecified type Qualified Code(s): F03.90 - Unspecified dementia without behavioral disturbance (9) Sleep apnea: Status: Acute (10) Atrial fibrillation: Status: Inactive (11) Fall: Status: Inactive Reason for Visit Reason for Visit: slurring words high bp headache Hospital Course Hospital Course 78-year-old female who was admitted for management evaluation of slurring of speech, code stroke was called, patient was deemed not a suitable candidate for TNKase because she was on Xarelto, CTA head and neck did not show focal high- grade stenosis proximal M2 branch left middle cerebral artery. Head CT unremarkable. Patient symptoms resolved at the time of my evaluation. NIH is 0 She has chronic residual defect from previous stroke. Patient follows up with Dr. Randall, will like to follow-up with her, I did mention to the patient that she would be considered high risk for CVA, she will like to follow-up with Dr. Randall to see if she needs to follow-up with neuro vascular surgeon. At the time of discharge I am continuing her Xarelto along antiplatelet therapy and atorvastatin. Patient ate her breakfast without any difficulty, NIH is 0 Considering her hemoglobin A1c below 7 which is 6.7 I would like to only keep her on Jardiance and discontinue glimepiride because that will put her at risk o f hypoglycemic event. Physical Exam Narrative: And I 0 No active deficit Assessment No slurring of speech No dysphagia Pleasant calm S1, S2 On room air Discharge Data Studies Completed and Pending Completed Studies During Hospitalization Category Date Time Status CT angio headneck* [id number] Stat Cat Scan 03/14/24 00:[address] head thrombolytic [id number] Stat Cat Scan 03/14/24 00:09 Completed XR chest 1V portable [id number] Stat Exams 03/14/24 00:09 Completed Pending at discharge Category Date Time Status Complete Blood Count w/Auto AM LABS Lab 03/15/24 04:00 Ordered Comprehensive Metabolic Panel AM LABS Lab 03/15/24 04:00 Ordered Magnesium AM LABS Lab 03/15/24 04:00 Ordered Urine Culture Stat Lab 03/14/24 01:59 Received US echo complete [CV. echo complete* [id number]] Routine Ultrasound 03/14/24 01:44 Taken Radiology Impressions Chest X-Ray 03/14/24 00:09 IMPRESSION: No acute findings. Head CT 03/14/24 00:09 IMPRESSION: No acute intracranial abnormality. ASSESSMENT: ASPECTS ([place] Stroke Program Early CT Score) is 10. Head/Neck CTA 03/14/24 00:09 IMPRESSION: No large vessel occlusion. Focal high-grade narrowing proximal M2 branch left middle cerebral artery. IMPRESSION: Moderate to marked narrowing suggested at right external carotid artery origin. No high-grade narrowing or occlusion in remaining neck vasculature. REFERENCES: NASCET CRITERIA. The degree of stenosis in the cervical segment of the internal carotid artery is based on NASCET criteria. Normal is no stenosis. Mild is less than 50% stenosis. Moderate is 50-69% stenosis. Severe is 70% to 99% stenosis. Total occlusion is no detectable patent lumen. Laboratory Results WBC 6.78 10^3/uL (3.29-11.43) 03/14/24 00:15 RBC 4.64 10^6/uL (3.85-5.65) 03/14/24 00:15 Hgb 14.50 g/dL (11.27-16.99) 03/14/24 00:15 Hct 45.5 % (36-47) 03/14/24 00:15 MCV 98.1 fl (85-98) H 03/14/24 00:15 MCH 31.3 pg (27-33) 03/14/24 00:15 MCHC 31.9 g/dL (30-55) 03/14/24 00:15 RDW 14.4 % (12.1-15.1) 03/14/24 00:15 Plt Count 230 10^3/cmm (157-399) 03/14/24 00:15 MPV 10.6 fL (7.4-10.4) H 03/14/24 00:15 Neut % (Auto) 53.3 % 03/14/24 00:15 Lymph % (Auto) 32.7 % 03/14/24 00:15 [place] % (Auto) 9.6 % 03/14/24 00:15 Eos % (Auto) 2.8 % 03/14/24 00:15 Baso % (Auto) 0.7 % 03/14/24 00:15 Neut # (Auto) 3.61 10^3/uL (1.8-7.7) 03/14/24 00:15 Lymph # (Auto) 2.2 10^3/uL (0.8-4.8) 03/14/24 00:15 Edmunds # (Auto) 0.7 10^3/uL (0.2-0.9) 03/14/24 00:15 Eos # (Auto) 0.2 10^3/uL (0.0-0.8) 03/14/24 00:15 Baso # (Auto) 0.1 10^3/uL (0.0-0.1) 03/14/24 00:15 Nucleated RBC % (auto) 0 % 03/14/24 00:15 Nucleated RBCs # 0.0 /100WBC 03/14/24 00:15 PT 12.50 SECONDS (12.1-14.9) 03/14/24 00:15 INR 0.91 (0.8-1.2) 03/14/24 00:15 APTT 25.8 SECONDS (23.9-36.7) 03/14/24 00:15 Sodium 143 mmol/L (136-145) 03/14/24 00:15 Potassium 4.4 mmol/L (3.5-5.1) 03/14/24 00:15 Chloride 108 mmol/L (98-107) H 03/14/24 00:15 Carbon Dioxide 25 mmol/L (22-29) 03/14/24 00:15 Anion Gap 14.4 (5-19) 03/14/24 00:15 BUN 20 mg/dL (8-23) 03/14/24 00:15 Creatinine 1.1 mg/dL (0.5-0.9) H 03/14/24 00:15 GFR Calculation Not Reportable 03/14/24 00:15 Glucose 133 mg/dL (65-115) H 03/14/24 00:15 POC Glucose 120 mg/dL (70-110) H 03/14/24 06:35 Estimat Average Glucose 146 03/14/24 00:15 Hemoglobin A1c 6.7 % (4.0-6.0) H 03/14/24 00:15 Calculated Osmolality 301 mOsm/kg (285-295) H 03/14/24 00:15 Calcium 10.2 mg/dL (8.5-10.5) 03/14/24 00:15 Magnesium 2.1 mg/dL (1.7-2.3) 03/14/24 00:15 Total Bilirubin 0.2 mg/dL (0.15-1.2) 03/14/24 00:15 AST 16 U/L (0-32) 03/14/24 00:15 ALT 14 U/L (0-33) 03/14/24 00:15 Alkaline Phosphatase 143 U/L (35-105) H 03/14/24 00:15 Troponin T Baseline 26 ng/L (0-10) H 03/14/24 00:15 Troponin T 120 Minute 26.24 ng/L (0-10) H 03/14/24 02:18 Delta Troponin T 0.24 ABS# (0-10) 03/14/24 02:18 Troponin T Hi Sens 6Hr 25.41 ng/L (0-10) H 03/14/24 05:45 Troponin T Hi Sens 6Hr Delta -0.59 ng/L (0-12) L 03/14/24 05:45 C-Reactive Protein 8.1 mg/L (0.0-4.9) H 03/14/24 00:15 Total Protein 6.5 g/dL (6.6-8.7) L 03/14/24 00:15 Albumin 4.0 g/dL (3.5-5.2) 03/14/24 00:15 Globulin 2.5 g/dL (1.3-4.6) 03/14/24 00:15 TSH 5.84 uIU/mL (0.27-4.20) H 03/14/24 00:15 Urine Color Yellow (Yellow) 03/14/24 01:59 Urine Appearance Hazy (CLEAR) A 03/14/24 01:59 Urine pH 6 (5-7) 03/14/24 01:59 Ur Specific [place] 1.010 (1.005-1.030) 03/14/24 01:59 Urine Protein Neg (Negative) 03/14/24 01:59 Urine Glucose (UA) 4+ (Normal) H 03/14/24 01:59 Urine Ketones Negative (Negative) 03/14/24 01:59 Urine Blood Neg (Negative) 03/14/24 01:59 Urine Nitrate Positive (Negative) H 03/14/24 01:59 Urine Bilirubin Neg (Negative) 03/14/24 01:59 Urine Urobilinogen Neg mg/dL (Negative) 03/14/24 01:59 Ur Leukocyte Esterase Negative (Negative) 03/14/24 01:59 Urine RBC 5-10 /hpf (0-2) H 03/14/24 01:59 Urine WBC 10-15 /hpf (0-5) H 03/14/24 01:59 Ur Squamous Epith Cells None /hpf (0-5) 03/14/24 01:59 Amorphous Sediment Not Reportable 03/14/24 01:59 Urine Bacteria 4+ /hpf (NONE) H 03/14/24 01:59 Urine Mucus 1+ /hpf 03/14/24 01:59 Urine Opiates Screen Negative ng/mL (Negative) 03/14/24 01:59 Ur Barbiturates Screen Negative ng/mL (Negative) 03/14/24 01:59 Ur Phencyclidine Scrn Negative ng/mL (Negative) 03/14/24 01:59 Ur Amphetamines Screen Negative ng/mL (Negative) 03/14/24 01:59 U Benzodiazepines Scrn Negative ng/mL (Negative) 03/14/24 01:59 Urine Cocaine Screen Negative ng/mL (Negative) 03/14/24 01:59 U Marijuana (THC) Screen Negative ng/mL (Negative) 03/14/24 01:59 Ethyl Alcohol < 10 mg/dL (0-10) 03/14/24 00:15 Vitals Last Vital Signs Temp 97.6 F 03/14/24 07:49 Pulse 72 03/14/24 08:23 Resp 18 03/14/24 08:23 BP 174/84 03/14/24 07:49 Pulse Ox 93 03/14/24 08:40 O2 Del Method Room Air 03/14/24 08:40 Discharge Plan Discharge Patient Disposition: Home Condition: Stable Prescriptions: Continued (DME) BIPAP MACHINE Qty: 1 0RF Rx Instructions: As directed (DME) BIPAP MASK Qty: 1 2RF Rx Instructions: As directed (DME) BIPAP SUPPLIES Qty: 1 2RF Rx Instructions: As directed (DME) Easy Plus II Test Strip See Rx Instructions .ROUTE .MEDSUPPLY Qty: 50 3RF Rx Instructions: use one strip to check blood sugars two time daily fluticasone propionate [Flonase Allergy Relief] 50 mcg/actuation spray,suspension 1 spray intranasal DAILY PRN (Reason: ALLERGIES) Rx Instructions: administer into each nostril levothyroxine 125 mcg capsule 125 mcg PO DAILY 90 Days Qty: 90 0RF Xarelto 20 mg tablet See Rx Instructions .ROUTE .COMPLEX Qty: 90 1RF Dose Instruction: TAKE ONE TABLET BY MOUTH DAILY Rx Instructions: TAKE ONE TABLET BY MOUTH DAILY (DME) blood-glucose meter [Easy Plus II Blood Glucose Met[place] [facility] [place]OUTE .MEDSUPPLY Qty: 1 0RF Rx Instructions: use meter two times a day to check blood sugar amiodarone 200 mg tablet 200 mg PO DAILY@0800 Qty: 90 3RF bumetanide 1 mg tablet 1 mg PO DAILY PRN (Reason: edema) Qty: 90 0RF venlafaxine 150 mg capsule,extended release 24hr See Rx Instructions .ROUTE .COMPLEX Qty: 30 3RF Dose Instruction: TAKE ONE CAPSULE BY MOUTH EVERY DAY Rx Instructions: TAKE ONE CAPSULE BY MOUTH EVERY EVENING. metoprolol tartrate 50 mg tablet See Rx Instructions .ROUTE .COMPLEX Qty: 180 0RF Dose Instruction: TAKE ONE TABLET BY MOUTH TWICE DAILY AT 8am AND 8pm Rx Instructions: TAKE ONE TABLET BY MOUTH TWICE DAILY AT 8am AND 8pm zonisamide 100 mg capsule 500 mg PO DAILY Rx Instructions: TAKE 5 CAPSULES BY MOUTH DAILY pantoprazole 40 mg tablet,delayed release (DR/EC) 40 mg PO QAM Jardiance 25 mg tablet 25 mg PO DAILY aspirin [Adult Low Dose Aspirin] 81 mg tablet,delayed release (DR/EC) 81 mg PO DAILY@0800 Qty: 60 0RF Changed atorvastatin 20 mg tablet 40 mg PO BEDTIME 90 Days Qty: 30 3RF amlodipine 5 mg tablet 10 mg PO DAILY Qty: 60 2RF lisinopril 40 mg tablet 40 mg PO DAILY Qty: 60 0RF Discontinued glimepiride 4 mg tablet 4 mg PO DAILY Discharge Orders: Discharge Order (Routine); Ordered 03/14/24 Ordered By: Oanh Amor Referrals: Emi Randall MD [Physician] - 1-3 days Aretha Davies FNP [Primary Care Provider] - Patient Instructions: Opioid Safety Discharge Attestations Time Spent in Discharge Care*: greater than 30 min Status at Discharge: Cognitive status at discharge: cognitively intact , Behavioral status at discharge: cooperative , Quality Metrics Clinical Quality Measures [ No reported AMI, CVA or VTE this stay] Coding Level of Care Code Acute Code for Chg Fwd Diagnoses Essential hypertension I10 Hypertension type: essential hypertension Hypothyroidism, unspecified type E03.9 Hypothyroidism type: unspecified Gastroesophageal reflux disease, unspecified whether esophagitis present K21.9 Esophagitis presence: esophagitis presence not specified UTI (urinary tract infection) N39.0 Chronic migraine without aura, intractable, with status migrainosus G43.711 Transient cerebral ischemia G45.9 Transient cerebral ischemia type: unspecified 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
--- NOTE | 2024-03-14 10:25 | PC.OT ---
OT order received. Per patient's reports, patient is currently awaiting debridement of stage 3 pressure ulcer today. Patient also had multiple bradycardia episodes overnight. Patient is typically bedbound per history. Will hold OT evaluation at this time until patient is appropriate. Emile Garrison, OTR/L
[2024-03-14 11:01] LABS: Glucose Point of Care 152 mg/dL (70-110)
--- NOTE | 2024-03-14 11:57 | PC.NURSE ---
Discharge delay- patient was awaiting meds to meds. Has received meds and is awaiting OT assessment.
== END 2024-03-14 13:23 | disposition home or self-care (01) ==
LOC: ER 03-14 01:11 → MEDSURG 03-14 01:31
PROVIDERS: Admitting Provider Internal Medicine; Emergency Provider Emergency Medicine; PCP Registered Nurse; Visit Provider Internal Medicine
DX: G45.9 Transient cerebral ischemic attack, unspecified (principal); R29.700 NIHSS score 0; I69.320 Aphasia following cerebral infarction; E03.9 Hypothyroidism, unspecified; K21.9 Gastro-esophageal reflux disease without esophagitis; N39.0 Urinary tract infection, site not specified; G43.711 Chronic migraine without aura, intractable, with status migrainosus; F03.90 Unspecified dementia, unspecified severity, without behavioral disturbance, psychotic disturbance, mood disturbance, and anxiety; I48.91 Unspecified atrial fibrillation; Z79.01 Long term (current) use of anticoagulants; E13.9 Other specified diabetes mellitus without complications; G47.33 Obstructive sleep apnea (adult) (pediatric); Z95.0 Presence of cardiac pacemaker; I11.0 Hypertensive heart disease with heart failure; I50.32 Chronic diastolic (congestive) heart failure; F32.A Depression, unspecified; Z91.81 History of falling
CPT/HCPCS: 36415; 36416; 70450; 70496; 70498; 71045; 80053; 80306; 80307; 81001; 82962; 83036; 83735; 84443; 84484; 85025; 85610; 85730; 86140; 87077; 87086; 87186; 93005; 93306; 94664; 96360; 96361; 97116; 97161; 97165; 99285; G0378; J7030; Q9967

== ENCOUNTER → 2024-03-24 14:23 | Outpatient (BNVA) | payer MEDICARE, OTHER, SELFPAY | PROVIDERS: PCP Registered Nurse; Referring Provider Registered Nurse; Visit Provider Specialist | DX: G43.011 Migraine without aura, intractable, with status migrainosus (principal); G45.9 Transient cerebral ischemic attack, unspecified; G40.309 Generalized idiopathic epilepsy and epileptic syndromes, not intractable, without status epilepticus; G31.84 Mild cognitive impairment of uncertain or unknown etiology; G47.10 Hypersomnia, unspecified; N39.0 Urinary tract infection, site not specified; Z71.89 Other specified counseling | CPT/HCPCS: 87077; 87086; 87184; 99215 ==

== ENCOUNTER → 2024-05-15 11:29 | Outpatient (BNVA) | payer MEDICARE, SELFPAY | PROVIDERS: PCP Registered Nurse; Visit Provider Internal Medicine Cardiovascular Disease | DX: I48.91 Unspecified atrial fibrillation (principal); G45.9 Transient cerebral ischemic attack, unspecified; Z79.01 Long term (current) use of anticoagulants | CPT/HCPCS: 99214 ==

== ENCOUNTER 2024-06-08 23:13 | Emergency (ER) | payer MEDICARE, SELFPAY ==
--- NOTE | 2024-06-08 23:18 | CTR_ITS ---
PROCEDURE INFORMATION: Exam: CT Head Without Contrast Exam date and time: 06/08/2024 11:03 PM Age: 78 years old Clinical indication: Speech disturbance and weakness, facial; Slurred speech; Additional info: Possible stroke TECHNIQUE: Imaging protocol: Computed tomography of the head without contrast. Radiation optimization: All CT scans at this facility use at least one of these dose optimization techniques: automated exposure control; mA and/or kV adjustment per patient size (includes targeted exams where dose is matched to clinical indication); or iterative reconstruction. COMPARISON: CT angio headneck* [id number] 03/14/2024 12:25 AM RADIATION DOSE METRICS: Total DLP (mGy-cm): 1136 FINDINGS: Brain: No acute intracranial hemorrhage or territorial infarction. No mass effect or midline shift. Chronic infarcts within left temporal occipital lobe and right cerebellar hemisphere. Cerebral ventricles: No ventriculomegaly. Paranasal sinuses: Visualized sinuses are unremarkable. No fluid levels. Mastoid air cells: Visualized mastoid air cells are well aerated. Bones: Unremarkable. No acute fracture. Soft tissues: Unremarkable. CT/CT head wo con* [id number] IMPRESSION: 1. No acute intracranial findings. 2. Chronic infarcts within left temporal occipital lobe and right cerebellar hemisphere.
[2024-06-08 23:21] VITALS: BP 149/78; PULSE 67; RESP 16; TEMP 36.9; O2SAT 92; BMI 31.4
--- NOTE | 2024-06-08 23:21 | XRR_ITS ---
PROCEDURE INFORMATION: Exam: XR Chest Exam date and time: 06/08/2024 11:35 PM Age: 78 years old Clinical indication: Other: New onset of stroke symptoms and weakness; Prior surgery; Surgery date: 6+ months; Surgery type: Pacemaker TECHNIQUE: Imaging protocol: Radiologic exam of the chest. Views: 1 view. COMPARISON: CR (CHEST, ) 03/14/2024 12:34 AM FINDINGS: Tubes, catheters and devices: Left pectoral pacemaker leads overlie the right atrium and right ventricle. Lungs: The lungs are hyperexpanded. Central vascular prominence without overt edema. No focal consolidations. Pleural spaces: Unremarkable. No pleural effusion. No pneumothorax. Heart/Mediastinum: Unremarkable. No cardiomegaly. Bones/joints: Unremarkable. XR/XR chest 1V portable [id number] IMPRESSION: Central vascular prominence without overt edema. No focal consolidations.
--- NOTE | 2024-06-08 23:22 | ECG_ITS ---
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 Measurements Intervals [place] Rate: 64 P: -16 NE: 246 QRS: 13 QRSD: 106 T: 36 QT: 431 QTc: 448 Interpretive Statements ELECTRONIC ATRIAL PACEMAKER SEPTAL MYOCARDIAL INFARCTION , OF INDETERMINATE AGE [40+ ms Q WAVE IN V1/V2] Compared to ECG 03/14/2024 07:43:53 No significant changes Electronically Signed On 06-09-2024 13:31:55 CDT by Bo Drummond M.D. [email or web address]
--- NOTE | 2024-06-08 23:36 | W.ED.NEUROSD ---
HPI - Neuro Symptoms/Deficit General: Chief Complaint: Neuro Symptoms/Deficit Stated Complaint: pt in 5 Time Seen by Provider: 06/08/24 23:18 History of Present Illness: 78-year-old female with a history of hypertension, hyperlipidemia, CVA in the past, atrial fibrillation on chronic Xarelto anticoagulation, hypothyroidism, depression, seizures, CHF, dementia and recurrent urinary tract infections who presents to the emergency room with concern for strokelike symptoms. She said she has not been feeling well for several days and thinks she might be developing a urinary tract infection. However she was talking to a family member when suddenly she had a hard time focusing and her words became slurred. There is some report of some facial droop. Related Data Home Medications Medication Instructions Recorded Confirmed fluticasone propionate 50 1 spray intranasal DAILY PRN 01/23/22 05/15/24 mcg/actuation nasal ALLERGIES spray,suspension (Flonase Allergy Relief) empagliflozin 25 mg tablet 25 mg PO DAILY 03/14/24 05/15/24 (Jardiance) pantoprazole 40 mg tablet,delayed 40 mg PO QAM 03/14/24 05/15/24 release amlodipine 10 mg tablet mg PO 03/24/24 05/15/24 Previous Rx's Medication Instructions Recorded BIPAP MACHINE #1 ea 12/05/19 BIPAP MASK #1 ea 12/05/19 BIPAP SUPPLIES #1 ea 12/05/19 blood-glucose meter (Easy Plus II #1 ea 05/23/20 Blood Glucose Meter) blood sugar diagnostic (Easy Plus #50 ea 04/15/21 II Test strips) levothyroxine 125 mcg capsule 125 mcg PO DAILY 90 days #90 caps 12/31/23 rivaroxaban 20 mg tablet (Xarelto) See Rx Instructions .Route 12/31/23 .COMPLEX #90 tabs venlafaxine 150 mg See Rx Instructions .Route 01/20/24 capsule,extended release 24 hr .COMPLEX #30 caps metoprolol tartrate 50 mg tablet See Rx Instructions .Route 03/13/24 .COMPLEX #180 tabs aspirin 81 mg tablet,delayed 81 mg PO DAILY@0800 #60 tabs 03/14/24 release (Adult Low Dose Aspirin) atorvastatin 20 mg tablet 40 mg (2 x 20 mg) PO BEDTIME 90 03/14/24 days #30 tabs lisinopril 40 mg tablet 40 mg PO DAILY #60 tabs 03/14/24 galcanezumab-gnlm 120 mg/mL 120 mg SUBCUT .monthly #1 mL 03/24/24 subcutaneous pen injector (Emgality Pen) galcanezumab-gnlm 120 mg/mL 240 mg (2 mL) SUBCUT ONCE #2 mL 03/24/24 subcutaneous pen injector (Emgality Pen) nitrofurantoin 100 mg PO BID 30 days #60 caps 03/24/24 monohydrate/macrocrystals 100 mg capsule (Macrobid) zonisamide 100 mg capsule 500 mg (5 x 100 mg) PO DAILY #150 03/24/24 caps amiodarone 200 mg tablet 200 mg PO DAILY@0800 #90 tabs 04/26/24 cefdinir 300 mg capsule 300 mg PO BID 10 days #20 caps 06/09/24 Allergies Allergy/AdvReac Type Severity Reaction Status Date / Time Penicillins Allergy Unknown Unknown Verified 05/15/24 11:48 tetanus and diphtheria Allergy Unknown Verified 05/15/24 11:48 toxoids penicillin G procaine AdvReac unknown Verified 05/15/24 11:48 Review of Systems Narrative: Constitutional symptoms: Negative except as documented in HPI. Skin symptoms: Negative except as documented in HPI. Eye symptoms: Negative except as documented in HPI. ENMT symptoms: Negative except as documented in HPI. Respiratory symptoms: Negative except as documented in HPI. Cardiovascular symptoms: Negative except as documented in HPI. Gastrointestinal symptoms: Negative except as documented in HPI. Genitourinary symptoms: Negative except as documented in HPI. Musculoskeletal symptoms: Negative except as documented in HPI. Neurologic symptoms: Negative except as documented in HPI. Psychiatric symptoms: Negative except as documented in HPI. Endocrine symptoms: Negative except as documented in HPI. 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) UTI (urinary tract infection) Dementia Obstructive sleep apnea Sleep apnea Type 2 diabetes mellitus Tachy-martin syndrome Non-insulin dependent diabetes mellitus -A1c (12/2019): 8.3 -Accucheks, ISS, hypoglycemia precautions -consistent carb diet as tolerated -takes metformin at home, can resume on d/c Drug-induced bradycardia Digoxin was discontinued along beta-alexandrea Atrial flutter Diastolic heart failure Generalized epilepsy CHF (congestive heart failure) Atrial fibrillation Severe obstructive sleep apnea Hypothyroidism Depressed Atrial dysrhythmia Diabetes 1.5, managed as type 2 Sleep apnea in adult Stroke due to embolism of left middle cerebral artery -prior hx of L MCA CVA in 05/2019; did not receive tPA -has been f/u with Dr. Randall -attributed to atrial fibrillation -on ASA, statin, AC with Eliquis -has residual cognitive impairment Seizure Heart failure Paroxysmal A-fib Surgical History Status post cardiac pacemaker procedure No pertinent past surgical history Family History Sister Diabetes Father Heart disease Mother Heart disease Social History Smoking and tobacco/nicotine status: never used tobacco/nicotine Alcohol intake: never Substance/Drug Use: never Physical Exam Narrative: EXAM NARRATIVE: General: Alert, no acute distress. Skin: Warm, dry. Head: Normocephalic, atraumatic. Neck: Supple, trachea midline. Eye: Extraocular movements are intact. Ears, nose, mouth and throat: mucosa moist. Cardiovascular: Regular, Normal peripheral perfusion. Respiratory: Lungs are clear to auscultation, respirations are non-labored, breath sounds are equal, Symmetrical chest wall expansion. Gastrointestinal: Soft, Nontender, Non distended Musculoskeletal: Normal ROM, no deformity. Neurological: Alert and oriented, No focal neurological deficit observed. Perhaps some very mild left facial droop, this is not rapidly apparent to me. Psychiatric: Cooperative, appropriate mood & affect. Course Vital Signs: Vital signs: Vital Signs Temperature 98.4 F 06/08/24 23:21 Pulse Rate 60 06/09/24 00:31 Respiratory Rate 20 H 06/09/24 00:31 Blood Pressure 120/66 06/09/24 00:31 Pulse Oximetry 96 06/09/24 00:31 Oxygen Delivery Me thod Room Air 06/09/24 00:31 MDM - Neuro Symptoms/Deficit Medical Decision Making Medical decision making: Differential diagnosis for patient with focal neurologic deficit(s) includes but not limited to and based on the above HPI, review of systems and physical exam: ischemic stroke, hemorrhagic stroke and embolic stroke secondary to atrial fibrillation), TIA, Graves's palsey, metabolic encephalopathy with previous stroke. Orders placed to evaluate differential diagnosis based on the above differential, HPI and physical exam EKG: Time 2318. Rate 64. Normal sinus rhythm, No ST-T changes, no ectopy, paced rhythm, this was reviewed and interpreted by myself the emergency room physician at 2320. Chest x-ray: Cardiomegaly. Pacemaker in place. No acute process. No infiltrate. No pneumothorax. This was reviewed and interpreted by myself the ER physician. CT head: There are some old encephalomalacia/strokes within the left temporal occipital lobe and right cerebellar hemisphere. No acute intracranial process. no intracranial hemorrhage, no evidence of infarct. no evidence of acute fracture.This was reviewed and interpreted by myself the ER physician. Lab Review: Laboratory results were reviewed and interpreted by myself the emergency room physician. No leukocytosis. No anemia. Some mild renal failure with a BUN/creatinine of 26 and 1.2. Just slightly over her baseline. She has chronic kidney disease. Urinalysis is positive for urinary tract infection that is nitrite positive and leukocyte positive. NIH Stroke Scale/Score (NIHSS) from [email or web address] on 06/08/2024 All calculations should be rechecked by clinician prior to use RESULT SUMMARY: 1 points NIH Stroke Scale INPUTS: 1A: Level of consciousness ?> 0 = Alert; keenly responsive 1B: Ask month and age ?> 0 = Both questions right 1C: 'Blink eyes' & 'squeeze hands' ?> 0 = Performs both tasks 2: Horizontal extraocular movements ?> 0 = Normal 3: Visual robles ?> 0 = No visual loss 4: Facial palsy ?> 1 = Minor paralysis (flat nasolabial fold, smile asymmetry) 5A: Left arm motor drift ?> 0 = No drift for 10 seconds 5B: Right arm motor drift ?> 0 = No drift for 10 seconds 6A: Left leg motor drift ?> 0 = No drift for 5 seconds 6B: Right leg motor drift ?> 0 = No drift for 5 seconds 7: Limb Ataxia ?> 0 = No ataxia 8: Sensation ?> 0 = Normal; no sensory loss 9: Language/aphasia ?> 0 = Normal; no aphasia 10: Dysarthria ?> 0 = Normal 11: Extinction/inattention ?> 0 = No abnormality Consultation: I spoke with Dr. Randall with neurology. Patient is on Xarelto which would rule her out for tPA. Also symptoms have resolved. I reviewed the patient's medical record. Reexamination: Patient remained stable. No increased work of breathing. No altered mental status. No focal motor deficits. Assessment and plan: Urinary tract infection Metabolic encephalopathy Dehydration History of stroke Chronic anticoagulation -IV cefepime and 500 mL normal saline bolus in the emergency room. -Discharged home - Discussed findings and plan with patient. Answered any questions. - All laboratory values were reviewed and interpreted personally by myself, the ER physician - All imaging was reviewed and interpreted personally by myself, the ER physician. - Evaluation and treatment of this problem were appropriate in the emergency setting Lab Data 06/08/24 23:26 06/08/24: Radiology Impressions Head CT 06/08/24 23:18 IMPRESSION: 1. No acute intracranial findings. 2. Chronic infarcts within left temporal occipital lobe and right cerebellar hemisphere. Chest X-Ray 06/08/24 23:21 IMPRESSION: Central vascular prominence without overt edema. No focal consolidations. Laboratory Results WBC 6.58 10^3/uL (3.29-11.43) 06/08/24: RBC 4.45 10^6/uL (3.85-5.65) 06/08/24: Hgb 13.70 g/dL (11.27-16.99) 06/08/24: Hct 43.3 % (36-47) 06/08/24: MCV 97.3 fl (85-98) 06/08/24 23: MCH 30.8 pg (27-33) 06/08/24 23: MCHC 31.6 g/dL (30-55) 06/08/24: RDW 14.0 % (12.1-15.1) 06/08/24: Plt Count 194 10^3/cmm (157-399) 06/08/24: MPV 11.6 fL (7.4-10.4) H 06/08/24: Neut % (Auto) 56.2 % 06/08/24: Lymph % (Auto) 29.3 % 06/08/24 23:26 [place] % (Auto) 10.6 % 06/08/24 23:26 Eos % (Auto) 3.0 % 06/08/24 23: Baso % (Auto) 0.6 % 06/08/24 23: Neut # (Auto) 3.69 10^3/uL (1.8-7.7) 06/08/24 23: Lymph # (Auto) 1.9 10^3/uL (0.8-4.8) 06/08/24 23: [place] # (Auto) 0.7 10^3/uL (0.2-0.9) 06/08/24 23: Eos # (Auto) 0.2 10^3/uL (0.0-0.8) 06/08/24 23: Baso # (Auto) 0.0 10^3/uL (0.0-0.1) 06/08/24 23: Nucleated RBC % (auto) 0 % 06/08/24 23: Nucleated RBCs # 0.0 /100WBC 06/08/24 23: PT 22.90 SECONDS (12.1-14.9) H 06/08/24 23:26 INR 1.95 (0.8-1.2) H 06/08/24 23:26 APTT 37.2 SECONDS (23.9-36.7) H 06/08/24 23:26 Sodium 142 mmol/L (136-145) 06/08/24 23:26 Potassium 4.2 mmol/L (3.5-5.1) 06/08/24 23: Chloride 107 mmol/L (98-107) 06/08/24 23:26 Carbon Dioxide 22 mmol/L (22-29) 06/08/24 23:26 Anion Gap 17.2 (5-19) 06/08/24 23:26 BUN 26 mg/dL (8-23) H 06/08/24 23:26 Creatinine 1.2 mg/dL (0.5-0.9) H 06/08/24 23:26 GFR Calculation Not Reportable 06/08/24 23:26 Glucose 201 mg/dL (65-115) H 06/08/24 23:26 Calculated Osmolality 304 mOsm/kg (285-295) H 06/08/24 23:26 Lactic Acid 1.6 mmol/L (0.5-2.2) 06/08/24 23:26 Calcium 9.8 mg/dL (8.5-10.5) 06/08/24 23:26 Total Bilirubin 0.2 mg/dL (0.15-1.2) 06/08/24 23:26 AST 15 U/L (0-32) 06/08/24 23:26 ALT 15 U/L (0-33) 06/08/24 23:26 Alkaline Phosphatase 165 U/L (35-105) H 06/08/24 23:26 Troponin T Baseline 24 ng/L (0-10) H 06/08/24 23:26 C-Reactive Protein 3.0 mg/L (0.0-4.9) 06/08/24 23:26 Total Protein 6.3 g/dL (6.6-8.7) L 06/08/24 23:26 Albumin 3.8 g/dL (3.5-5.2) 06/08/24 23:26 Globulin 2.5 g/dL (1.3-4.6) 06/08/24 23:26 Urine Color Yellow (Yellow) 06/09/24 00:13 Urine Appearance Clear (CLEAR) 06/09/24 00:13 Urine pH 6.0 (5-7) 06/09/24 00:13 Ur Specific [place] 1.030 (1.005-1.030) 06/09/24 00:13 Urine Protein Negative (Negative) 06/09/24 00:13 Urine Glucose (UA) 3+ (Normal) H 06/09/24 00:13 Urine Ketones Negative (Negative) 06/09/24 00:13 Urine Blood Negative (Negative) 06/09/24 00:13 Urine Nitrate Positive (Negative) A 06/09/24 00:13 Urine Bilirubin Negative (Negative) 06/09/24 00:13 Urine Urobilinogen 1.0 mg/dL (Negative) 06/09/24 00:13 Ur Leukocyte Esterase Negative (Negative) 06/09/24 00:13 Urine RBC 0-2 /hpf (0-2) 06/09/24 00:13 Urine WBC 21-50 /hpf (0-5) H 06/09/24 00:13 Ur Squamous Epith Cells 0-5 /hpf (0-5) 06/09/24 00:13 Amorphous Sediment Not Reportable 06/09/24 00:13 Urine Bacteria 4+ /hpf (NONE) H 06/09/24 00:13 Hyaline Casts 0-4 /lpf H 06/09/24 00:13 All radiology interpretation(s) finalized by discharge Discharge Plan Discharge Patient Disposition: Home Clinical Impression: Urinary tract infection, Acute metabolic encephalopathy, History of cerebrovascular accident Condition: Stable Prescriptions: New cefdinir 300 mg capsule 300 mg PO BID 10 Days Qty: 20 0RF No Action (DME) BIPAP MACHINE Qty: 1 0RF Rx Instructions: As directed (DME) BIPAP MASK Qty: 1 2RF Rx Instructions: As directed (DME) BIPAP SUPPLIES Qty: 1 2RF Rx Instructions: As directed (DME) Easy Plus II Test Strip See Rx Instructions .ROUTE .MEDSUPPLY Qty: 50 3RF Rx Instructions: use one strip to check blood sugars two time daily fluticasone propionate [Flonase Allergy Relief] 50 mcg/actuation spray,suspension 1 spray intranasal DAILY PRN (Reason: ALLERGIES) Rx Instructions: administer into each nostril levothyroxine 125 mcg capsule 125 mcg PO DAILY 90 Days Qty: 90 0RF Xarelto 20 mg tablet See Rx Instructions .ROUTE .COMPLEX Qty: 90 1RF Dose Instruction: TAKE ONE TABLET BY MOUTH DAILY Rx Instructions: TAKE ONE TABLET BY MOUTH DAILY zonisamide 100 mg capsule 500 mg PO DAILY Qty: 150 11RF Rx Instructions: TAKE 5 CAPSULES BY MOUTH DAILY Emgality Pen 120 mg/mL pen injector 240 mg SUBCUT ONCE Qty: 2 0RF Emgality Pen 120 mg/mL pen injector 120 mg SUBCUT .monthly Qty: 1 3RF amlodipine 10 mg tablet PO nitrofurantoin monohyd/m-cryst [Macrobid] 100 mg capsule 100 mg PO BID 30 Days Qty: 60 0RF Rx Instructions: must administer with a meal/food (DME) blood-glucose meter [Easy Plus II Blood Glucose Met[place] [facility] [place] Instructions .ROUTE .MEDSUPPLY Qty: 1 0RF Rx Instructions: use meter two times a day to check blood sugar venlafaxine 150 mg capsule,extended release 24hr See Rx Instructions .ROUTE .COMPLEX Qty: 30 3RF Dose Instruction: TAKE ONE CAPSULE BY MOUTH EVERY DAY Rx Instructions: TAKE ONE CAPSULE BY MOUTH EVERY EVENING. metoprolol tartrate 50 mg tablet See Rx Instructions .ROUTE .COMPLEX Qty: 180 0RF Dose Instruction: TAKE ONE TABLET BY MOUTH TWICE DAILY AT 8am AND 8pm Rx Instructions: TAKE ONE TABLET BY MOUTH TWICE DAILY AT 8am AND 8pm amiodarone 200 mg tablet 200 mg PO DAILY@0800 Qty: 90 3RF pantoprazole 40 mg tablet,delayed release (DR/EC) 40 mg PO QAM Jardiance 25 mg tablet 25 mg PO DAILY atorvastatin 20 mg tablet 40 mg PO BEDTIME 90 Days Qty: 30 3RF Adult Low Dose Aspirin 81 mg tablet,delayed release (DR/EC) 81 mg PO DAILY@0800 Qty: 60 0RF lisinopril 40 mg tablet 40 mg PO DAILY Qty: 60 0RF Discharge Orders: Discharge ED (Routine); Ordered 06/09/24 Ordered By: Lissette Tobin Referrals: Aretha Davies FNP [Primary Care Provider] - Discharge Diet: As Directed Patient Instructions: Urinary Tract Infection in Older Adults (ED) Activity Restrictions/Additional Instructions: Thank you for choosing [facility] for your healthcare needs today. Please realize this is an emergency room and that we are providing you with a medical screening exam and this may not be complete and all inclusive of all the testing and or work up that you may need to determine your ailment or severity of your illness. You have been screened and evaluated and felt safe for discharge. Health conditions do change or evolve sometimes and as such it is important that you follow up with your Primary Doctor to be re checked, 3-5 days is a general good time frame for follow up. You are always welcome to return to the ED for re assessment if your symptoms are worsening or you have new concerns Coding Level of Care Code ED [employer]orer [employer] for Morgan Sanchez
[2024-06-08 23:43] LABS: Basophils % 0.6 %; Eosinophils # 0.2 10^3/uL (0.0-0.8); Hematocrit 43.3 % (36-47); Lymphocytes # 1.9 10^3/uL (0.8-4.8); Lymphocytes % 29.3 %; Mean Corpuscular HGB Conc 31.6 g/dL (30-55); Mean Corpuscular Hemoglobin 30.8 pg (27-33); Mean Corpuscular Volume 97.3 fl (85-98); Mean Platelet Volume 11.6 fL (7.4-10.4); Monocytes # 0.7 10^3/uL (0.2-0.9); Monocytes % 10.6 %; Neutrophils # 3.69 10^3/uL (1.8-7.7); Neutrophils % 56.2 %; Nucleated Red Blood Cells % 0 %; Platelet Count 194 10^3/cmm (157-399); Red Blood Count 4.45 10^6/uL (3.85-5.65); White Blood Count 6.58 10^3/uL (3.29-11.43)
[2024-06-08 23:58] LABS: INR 1.95 (0.8-1.2); Partial Thromboplastin Time 37.2 SECONDS (23.9-36.7)
[2024-06-09 00:02] LABS: Troponin(5th) Baseline 24 ng/L (0-10)
[2024-06-09 00:04] VITALS: BP 119/70; PULSE 68; RESP 16; O2SAT 91
[2024-06-09 00:04] LABS: Alanine Aminotransferase 15 U/L (0-33); Albumin Level 3.8 g/dL (3.5-5.2); Alkaline Phosphatase 165 U/L (35-105); Blood Urea Nitrogen 26 mg/dL (8-23); Calcium 9.8 mg/dL (8.5-10.5); Carbon Dioxide 22 mmol/L (22-29); Chloride 107 mmol/L (98-107); Globulin 2.5 g/dL (1.3-4.6); Glucose 201 mg/dL (65-115); Osmolality Calculated 304 mOsm/kg (285-295); Sodium 142 mmol/L (136-145); Total Bilirubin 0.2 mg/dL (0.15-1.2); Total Protein 6.3 g/dL (6.6-8.7)
[2024-06-09 00:05] LABS: Lactic Sepsis W/Reflex 1.6 mmol/L (0.5-2.2)
[2024-06-09 00:06] LABS: Anion Gap 17.2 (5-19); Aspartate Amino Transferase 15 U/L (0-32); Potassium 4.2 mmol/L (3.5-5.1)
[2024-06-09 00:23] LABS: Bilirubin Urine Negative (Negative); Blood Urine Negative (Negative); Glucose Urine UA 3+ (Normal); Ketones Urine Negative (Negative); Leukocyte Esterase Urine Negative (Negative); Nitrate Urine Positive (Negative); Protein Urine Negative (Negative); Urine Appearance Clear (CLEAR); Urine Color Yellow (Yellow)
--- NOTE | 2024-06-09 00:27 | PC.NURSE ---
Patient's sister voiced concern for patient's O2 level, stating that she normally wears oxygen at home. Patient's oxygen levels have been maintaining in the low to mid 90s, patient does not appear in distress, respirations even and unlabored.
[2024-06-09 00:28] LABS: Bacteria Urine 4+ /hpf; Hyaline Casts Urine 0-4 /lpf; RBC Urine 0-2 /hpf (0-2); Squamous Epithelial Cell Urine 0-5 /hpf (0-5); WBC Urine 21-50 /hpf (0-5)
[2024-06-09 00:29] VITALS: BP 134/60; PULSE 60; RESP 13; O2SAT 94
[2024-06-09 00:31] VITALS: BP 120/66; PULSE 60; RESP 20; O2SAT 96
[2024-06-09 00:43] LABS: Add Urine Culture? Yes
[2024-06-09] MEDS: sodium chloride 0.9% 500 ML 999 ML IV (00:55)
[2024-06-09] MEDS: cefepime 2,000 MG in sodium chloride 0.9% (plus) 50 ML 100 MG IV (00:57)
--- NOTE | 2024-06-09 00:59 | PC.NURSE ---
Patient's series troponin and EKGs cancelled per verbal instruction of Dr Tobin due to patient being up for discharge.
[2024-06-09 01:01] VITALS: BP 116/53; PULSE 60; RESP 13; O2SAT 95
[2024-06-09 01:34] VITALS: BP 140/62; PULSE 60; RESP 17; O2SAT 94
[2024-06-09 01:58] VITALS: BP 133/59; PULSE 60; RESP 22; O2SAT 96
== END 2024-06-09 02:01 | disposition home or self-care (01) ==
PROVIDERS: Emergency Provider Emergency Medicine; PCP Registered Nurse
DX: N39.0 Urinary tract infection, site not specified (principal); G93.41 Metabolic encephalopathy; Z86.73 Personal history of transient ischemic attack (TIA), and cerebral infarction without residual deficits; Z79.82 Long term (current) use of aspirin; I11.0 Hypertensive heart disease with heart failure; I50.9 Heart failure, unspecified; E11.9 Type 2 diabetes mellitus without complications
CPT/HCPCS: 36415; 70450; 71045; 80053; 81001; 83605; 84484; 85025; 85610; 85730; 86140; 87040; 87077; 87086; 87186; 93005; 96365; 99285; J0692; J7040

== ENCOUNTER 2024-06-12 15:55 | Inpatient (IN) | payer MEDICARE, SELFPAY ==
--- NOTE | 2024-06-12 15:56 | XRR_ITS ---
PROCEDURE INFORMATION: Exam: XR Chest Exam date and time: 06/12/2024 4:01 PM Age: 78 years old Clinical indication: Shortness of breath; Additional info: Fall TECHNIQUE: Imaging protocol: Radiologic exam of the chest. Views: 1 view. COMPARISON: CR (CHEST, ) 06/08/2024 11:35 PM FINDINGS: Tubes, catheters and devices: Stable left subclavian pacer with right atrial appendage and right ventricular leads. Lungs: Similar central vascular congestion without overt edema. No consolidative airspace disease. Pleural spaces: Unremarkable. No pleural effusion. No pneumothorax. Heart/Mediastinum: Unremarkable. No cardiomegaly. Diaphragm: Mild asymmetric elevation of the right hemidiaphragm is similar. Bones/joints: Unremarkable. XR/XR chest 1V portable [id number] IMPRESSION: Central pulmonary vascular congestion without overt edema. No consolidative airspace disease.
--- NOTE | 2024-06-12 15:56 | XRR_ITS ---
PROCEDURE INFORMATION: Exam: XR Right Hip Exam date and time: 06/12/2024 4:03 PM Age: 78 years old Clinical indication: Injury or trauma; Fall; Blunt trauma (contusions or hematomas); Right; Hip TECHNIQUE: Imaging protocol: Radiologic exam of the right hip. Views: 1 view hip with pelvis when performed. COMPARISON: CT abdomen pelvis w con* [id number] 11/12/2021 7:18 PM FINDINGS: Bones/joints: Unremarkable. No acute fracture. Mild degenerative changes of bilateral hips. Mild linear lucency within the proximal femoral shaft favors a nutrient channel. Soft tissues: Unremarkable. XR/XR hip RT 2-3V wo/w pel* [id number] IMPRESSION: No acute findings.
--- NOTE | 2024-06-12 15:56 | XRR_ITS ---
PROCEDURE INFORMATION: Exam: XR Right Knee Exam date and time: 06/12/2024 4:09 PM Age: 78 years old Clinical indication: Injury or trauma; Fall; Blunt trauma; Knee; Right TECHNIQUE: Imaging protocol: Radiologic exam of the right knee. Views: 3 views. COMPARISON: No relevant prior studies available. FINDINGS: Bones/joints: No acute fracture or dislocation. Mild narrowing of the medial compartment. Chondrocalcinosis in the medial and lateral compartments. Soft tissues: Normal. XR/XR knee RT 3V* [id number] IMPRESSION: No acute osseous findings.
--- NOTE | 2024-06-12 16:00 | ECG_ITS ---
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 Measurements Intervals Elizabeth Rate: 60 P: -16 VA: 212 QRS: -6 QRSD: 102 T: 30 QT: 445 QTc: 447 Interpretive Statements ELECTRONIC ATRIAL PACEMAKER LEFT VENTRICULAR HYPERTROPHY AND ST-T CHANGE [VOLTAGE CRITERIA PLUS ST/T ABNORMALITY] Compared to ECG 06/08/2024 23:18:27 Left ventricular hypertrophy now present ST (T wave) deviation now present Myocardial infarct finding no longer present Electronically Signed On 06-12-2024 17:03:31 CDT by Bo Drummond M.D. [email or web address]
--- NOTE | 2024-06-12 16:00 | XRR_ITS ---
PROCEDURE INFORMATION: Exam: XR Right Femur Exam date and time: 06/12/2024 4:12 PM Age: 78 years old Clinical indication: Injury or trauma; Fall; Blunt trauma; Thigh or upper leg; Right TECHNIQUE: Imaging protocol: Radiologic exam of the right femur. Views: 2 views. COMPARISON: CR XR knee RT 3V* [id number] 06/12/2024 4:09 PM FINDINGS: Bones/joints: Mild cortical irregularity medial to the greater trochanter. Faint lucency in the intertrochanteric region of the No dislocation. Mild degenerative changes of the hip Soft tissues: Unremarkable. Vasculature: Scattered vascular calcifications. XR/XR femur RT min 2V* [id number] IMPRESSION: Nondisplaced intertrochanteric fracture of the hip not entirely excluded. Correlate with physical exam findings. CT could be considered for further assessment if clinically warranted.
--- NOTE | 2024-06-12 16:00 | CTR_ITS ---
PROCEDURE INFORMATION: Exam: CT Head Without Contrast Exam date and time: 06/12/2024 4:25 PM Age: 78 years old Clinical indication: Altered mental status/memory loss; Additional info: AMS TECHNIQUE: Imaging protocol: Computed tomography of the head without contrast. Radiation optimization: All CT scans at this facility use at least one of these dose optimization techniques: automated exposure control; mA and/or kV adjustment per patient size (includes targeted exams where dose is matched to clinical indication); or iterative reconstruction. COMPARISON: CT (Head 3.0, HEAD, BRAIN W/O) 06/08/2024 11:03 PM RADIATION DOSE METRICS: Total DLP (mGy-cm): 1055 FINDINGS: Brain: Redemonstrated encephalomalacia left temporo-occipital region. Periventricular white matter hypodensities likely represent chronic small vessel ischemic changes. Similar chronic infarcts in the right cerebellar hemisphere. Cerebral ventricles: No ventriculomegaly. Paranasal sinuses: Visualized sinuses are unremarkable. No fluid levels. Mastoid air cells: Visualized mastoid air cells are well aerated. Orbital cavities: Bilateral lens replacements. Bones: Unremarkable. No acute fracture. Soft tissues: Unremarkable. Vasculature: Vascular calcifications along the carotid siphons. CT/CT head wo con* [id number] IMPRESSION: 1. No acute intracranial findings. 2. Chronic/age-related changes as above are similar to prior.
--- NOTE | 2024-06-12 16:03 | ED_ITS ---
HPI - General Adult 2 General: Chief complaint: Extremity Injury, Lower Stated complaint: right knee/hip pain post fall Time Seen by Provider: 06/12/24 15:56 Source: EMS Mode of arrival: EMS Limitations: altered mental status History of Present Illness: 78-year-old female with a history of a s troke along with A-fib patient lives at home with family patient recently been diagnosed with UTI 4 days ago per EMS patient's been having increased confusion along with falls. Patient had a fall today with some right knee abrasion complaining of right knee pain. Per EMS patient's been very confused with family she had a previous stroke but typically can speak in here she is unable to answer any my questions and has aphasia. She is able to move all extremities. Per EMS this has been going on for roughly 5 to 6 days Related Data Home Medications Medication Instructions Recorded Confirmed fluticasone propionate 50 1 spray intranasal DAILY PRN 01/23/22 05/15/24 mcg/actuation nasal ALLERGIES spray,suspension (Flonase Allergy Relief) empagliflozin 25 mg tablet 25 mg PO DAILY 03/14/24 05/15/24 (Jardiance) pantoprazole 40 mg tablet,delayed 40 mg PO QAM 03/14/24 05/15/24 release Previous Rx's Medication Instructions Recorded BIPAP MACHINE #1 ea 12/05/19 BIPAP MASK #1 ea 12/05/19 BIPAP SUPPLIES #1 ea 12/05/19 blood-glucose meter (Easy Plus II #1 ea 05/23/20 Blood Glucose Meter) blood sugar diagnostic (Easy Plus #50 ea 04/15/21 II Test strips) levothyroxine 125 mcg capsule 125 mcg PO DAILY 90 days #90 caps 12/31/23 rivaroxaban 20 mg tablet (Xarelto) See Rx Instructions .Route 12/31/23 .COMPLEX #90 tabs venlafaxine 150 mg See Rx Instructions .Route 01/20/24 capsule,extended release 24 hr .COMPLEX #30 caps metoprolol tartrate 50 mg tablet See Rx Instructions .Route 03/13/24 .COMPLEX #180 tabs aspirin 81 mg tablet,delayed 81 mg PO DAILY@0800 #60 tabs 03/14/24 release (Adult Low Dose Aspirin) galcanezumab-gnlm 120 mg/mL 120 mg SUBCUT .monthly #1 mL 03/24/24 subcutaneous pen injector (Emgality Pen) galcanezumab-gnlm 120 mg/mL 240 mg (2 mL) SUBCUT ONCE #2 mL 03/24/24 subcutaneous pen injector (Emgality Pen) nitrofurantoin 100 mg PO BID 30 days #60 caps 03/24/24 monohydrate/macrocrystals 100 mg capsule (Macrobid) zonisamide 100 mg capsule 500 mg (5 x 100 mg) PO DAILY #150 03/24/24 caps amiodarone 200 mg tablet 200 mg PO DAILY@0800 #90 tabs 04/26/24 amlodipine 10 mg tablet 10 mg PO DAILY #30 tabs 06/09/24 atorvastatin 20 mg tablet 40 mg (2 x 20 mg) PO BEDTIME 90 06/09/24 days #30 tabs cefdinir 300 mg capsule 300 mg PO BID 10 days #20 caps 06/09/24 lisinopril 40 mg tablet 40 mg PO DAILY #60 tabs 06/09/24 Allergies Allergy/AdvReac Type Severity Reaction Status Date / Time Penicillins Allergy Unknown Unknown Verified 06/12/24 16:12 tetanus and diphtheria Allergy Unknown Verified 06/12/24 16:12 toxoids penicillin G procaine AdvReac unknown Verified 06/12/24 16:12 Review of Systems 2 General: Reports: ROS unobtainable due to mental status PFSH ED 2 PFSH: Medical History Hypertension Transient cerebral ischemia Chronic migraine without aura, intractable, with status migrainosus GERD (gastroesophageal reflux disease) 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) UTI (urinary tract infection) Dementia Obstructive sleep apnea Sleep apnea Type 2 diabetes mellitus Tachy-martin syndrome Non-insulin dependent diabetes mellitus -A1c (12/2019): 8.3 -Accucheks, ISS, hypoglycemia precautions -consistent carb diet as tolerated -takes metformin at home, can resume on d/c Drug-induced bradycardia Digoxin was discontinued along beta-alexandrea Atrial flutter Diastolic heart failure Generalized epilepsy CHF (congestive heart failure) Atrial fibrillation Severe obstructive sleep apnea Hypothyroidism Depressed Atrial dysrhythmia Diabetes 1.5, managed as type 2 Sleep apnea in adult Stroke due to embolism of left middle cerebral artery -prior hx of L MCA CVA in 05/2019; did not receive tPA -has been f/u with Dr. Randall -attributed to atrial fibrillation -on ASA, statin, AC with Eliquis -has residual cognitive impairment Seizure Heart failure Paroxysmal A-fib Surgical History Status post cardiac pacemaker procedure No pertinent past surgical history Family History Sister Diabetes Father Heart disease Mother Heart disease Social History Smoking and tobacco/nicotine status: never used tobacco/nicotine Alcohol intake: never Substance/Drug Use: never Physical Exam 2 Const: COMMON NORMALS: negative for patient oriented x3 EXAM LIMITATIONS: a ltered mental status HENMT: COMMON NORMALS: normocephalic and atraumatic HEAD & SCALP: n ormocephalic and atraumatic Eye: COMMON NORMALS: Equal, round and reactive pupils present and EOMs intact bilaterally PUPIL: Yes Equal, round and reactive pupils present Neck/C-Spine: COMMON NORMALS: full ROM and supple Chest: COMMONS NORMALS: normal inspection of the chest Resp: COMMON NORMALS: normal respiratory effort, No retractions, No use of accessory muscles and clear to auscultation bilaterally AUSCULTATION: clear to auscultation bilaterally Cardio: COMMON NORMALS: regular rate, regular rhythm and No murmurs present (Cardio) RATE: regular rate RHYTHM: regular rhythm GI: COMMON NORMALS: Normal to inspection, nondistended, normoactive bowel sounds present, Soft to palpation, non-tender and no masses PALPATION: Yes Soft to palpation Extremity: COMMON NORMALS: full ROM NARRATIVE EXTREMITY EXAM: Abrasion noted to right knee some slight tenderness to right femur no shortening or rotation Neuro: COMMON NORMALS: negative for patient oriented x3 OTHER: Patient is quite confused unable to answer any my questions she does have full movement all extremities no weakness no facial droop Psych: COMMON NORMALS: mental status grossly normal, Normal thought process present and cooperative THOUGHT PROCESS: Normal thought process present Skin: COMMON NORMALS: no rashes or lesions noted and no wounds GENERAL SKIN EXAM: no rashes or lesions noted Course 2 Vital Signs: Vital signs: Vital Signs Pulse Rate 65 06/12/24 16:07 Blood Pressure 125/68 06/12/24 16:07 Pulse Oximetry 93 06/12/24 16:07 Oxygen Delivery Me thod Nasal Cannula 06/12/24 16:07 Oxygen Flow Rate 2 06/12/24 16:07 MDM - General Adult Medical Decision Making Patient presents here with frequent falls she is also being confused over the last 3 days with expressive aphasia. She is having word finding difficulty here she is speaking more clearly than when she first arrived but she is having aphasia no other deficits noted here but she has had frequent falls imaging here is all normal did speak to hospice will admit at this time Patient is not a lytic or thrombectomy candidate as symptoms have been 3 days Medical Records I reviewed the patient's medical records. Lab Data I reviewed the patient's lab results. 06/12/24 16:19 06/12/24 16:19 Radiology Impressions Chest X-Ray 06/12/24 15:56 IMPRESSION: Central pulmonary vascular congestion without overt edema. No consolidative airspace disease. Hip/Pelvis X-Ray 06/12/24 15:56 IMPRESSION: No acute findings. Knee X-Ray 06/12/24 15:56 IMPRESSION: No acute osseous findings. Femur X-Ray 06/12/24 16:00 IMPRESSION: Nondisplaced intertrochanteric fracture of the hip not entirely excluded. Correlate with physical exam findings. CT could be considered for further assessment if clinically warranted. Head CT 06/12/24 16:00 IMPRESSION: 1. No acute intracranial findings. 2. Chronic/age-related changes as above are similar to prior. Hip CT 06/12/24 16:46 IMPRESSION: 1. No acute osseous findings. 2. Mild contusion within the posterior/medial upper thigh. Laboratory Results WBC 7.00 10^3/uL (3.29-11.43) 06/12/24 16:19 RBC 4.73 10^6/uL (3.85-5.65) 06/12/24 16:19 Hgb 14.70 g/dL (11.27-16.99) 06/12/24 16:19 Hct 45.5 % (36-47) 06/12/24 16:19 MCV 96.2 fl (85-98) 06/12/24 16:19 MCH 31.1 pg (27-33) 06/12/24 16:19 MCHC 32.3 g/dL (30-55) 06/12/24 16:19 RDW 13.8 % (12.1-15.1) 06/12/24 16:19 Plt Count 190 10^3/cmm (157-399) 06/12/24 16:19 MPV 11.8 fL (7.4-10.4) H 06/12/24 16:19 Neut % (Auto) 67.4 % 06/12/24 16:19 Lymph % (Auto) 20.7 % 06/12/24 16:19 Piatt % (Auto) 9.9 % 06/12/24 16:19 Eos % (Auto) 1.3 % 06/12/24 16:19 Baso % (Auto) 0.4 % 06/12/24 16:19 Neut # (Auto) 4.72 10^3/uL (1.8-7.7) 06/12/24 16:19 Lymph # (Auto) 1.5 10^3/uL (0.8-4.8) 06/12/24 16:19 Piatt # (Auto) 0.7 10^3/uL (0.2-0.9) 06/12/24 16:19 Eos # (Auto) 0.1 10^3/uL (0.0-0.8) 06/12/24 16:19 Baso # (Auto) 0.0 10^3/uL (0.0-0.1) 06/12/24 16:19 Nucleated RBC % (auto) 0 % 06/12/24 16:19 Nucleated RBCs # 0.0 /100WBC 06/12/24 16:19 PT 14.60 SECONDS (12.1-14.9) 06/12/24 16:19 INR 1.10 (0.8-1.2) 06/12/24 16:19 Sodium 140 mmol/L (136-145) 06/12/24 16:19 Potassium 4.1 mmol/L (3.5-5.1) 06/12/24 16:19 Chloride 105 mmol/L (98-107) 06/12/24 16:19 Carbon Dioxide 22 mmol/L (22-29) 06/12/24 16:19 Anion Gap 17.1 (5-19) 06/12/24 16:19 BUN 20 mg/dL (8-23) 06/12/24 16:19 Creatinine 1.0 mg/dL (0.5-0.9) H 06/12/24 16:19 GFR Calculation Not Reportable 06/12/24 16:19 Glucose 116 mg/dL (65-115) H 06/12/24 16:19 Calculated Osmolality 294 mOsm/kg (285-295) 06/12/24 16:19 Calcium 10.0 mg/dL (8.5-10.5) 06/12/24 16:19 Magnesium 2.2 mg/dL (1.7-2.3) 06/12/24 16:19 Total Bilirubin 0.5 mg/dL (0.15-1.2) 06/12/24 16:19 AST 15 U/L (0-32) 06/12/24 16:19 ALT 14 U/L (0-33) 06/12/24 16:19 Alkaline Phosphatase 161 U/L (35-105) H 06/12/24 16:19 Ammonia 16 umol/L (11-51) 06/12/24 16:19 Total Protein 6.8 g/dL (6.6-8.7) 06/12/24 16:19 Albumin 3.7 g/dL (3.5-5.2) 06/12/24 16:19 Globulin 3.1 g/dL (1.3-4.6) 06/12/24 16:19 TSH 4.15 uIU/mL (0.27-4.20) 06/12/24 16:19 Urine Color Yellow (Yellow) 06/12/24 16:53 Urine Appearance Slightly cloudy (CLEAR) 06/12/24 16:53 Urine pH 5 (5-7) 06/12/24 16:53 Ur Specific Vancleve 1.020 (1.005-1.030) 06/12/24 16:53 Urine Protein Neg (Negative) 06/12/24 16:53 Urine Glucose (UA) 4+ (Normal) H 06/12/24 16:53 Urine Ketones 2+ (Negative) H 06/12/24 16:53 Urine Blood Neg (Negative) 06/12/24 16:53 Urine Nitrate Positive (Negative) A 06/12/24 16:53 Urine Bilirubin Neg (Negative) 06/12/24 16:53 Urine Urobilinogen Norm mg/dL (Negative) 06/12/24 16:53 Ur Leukocyte Esterase Negative (Negative) 06/12/24 16:53 Urine RBC None /hpf (0-2) 06/12/24 16:53 Urine WBC 0-4 /hpf (0-5) H 06/12/24 16:53 Ur Squamous Epith Cells 0-4 /hpf (0-5) H 06/12/24 16:53 Amorphous Sediment Not Reportable 06/12/24 16:53 Urine Bacteria 1+ /hpf (NONE) H 06/12/24 16:53 Urine Mucus Trace /hpf 06/12/24 16:53 All radiology interpretation(s) finalized by discharge EKG Data EKG 1: I personally reviewed and interpreted this EKG as follows: EKG interpretation date: 06/12/24 EKG interpretation time: 16:21 Interpretation: hr [address] elevation qrs 102 qtc 446 Computer generated interpretation: Chest X-Ray 06/12/24 15:56 IMPRESSION: Central pulmonary vascular congestion without overt edema. No consolidative airspace disease. Hip/Pelvis X-Ray 06/12/24 15:56 IMPRESSION: No acute findings. Knee X-Ray 06/12/24 15:56 IMPRESSION: No acute osseous findings. Femur X-Ray 06/12/24 16:00 IMPRESSION: Nondisplaced intertrochanteric fracture of the hip not entirely excluded. Correlate with physical exam findings. CT could be considered for further assessment if clinically warranted. Head CT 06/12/24 16:00 IMPRESSION: 1. No acute intracranial findings. 2. Chronic/age-related changes as above are similar to prior. Hip CT 06/12/24 16:46 IMPRESSION: 1. No acute osseous findings. 2. Mild contusion within the posterior/medial upper thigh. 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
[2024-06-12 16:07] VITALS: BP 125/68; PULSE 65; O2SAT 93
[2024-06-12 16:27] LABS: Basophils % 0.4 %; Eosinophils # 0.1 10^3/uL (0.0-0.8); Eosinophils % 1.3 %; Hematocrit 45.5 % (36-47); Lymphocytes # 1.5 10^3/uL (0.8-4.8); Lymphocytes % 20.7 %; Mean Corpuscular HGB Conc 32.3 g/dL (30-55); Mean Corpuscular Hemoglobin 31.1 pg (27-33); Mean Corpuscular Volume 96.2 fl (85-98); Mean Platelet Volume 11.8 fL (7.4-10.4); Monocytes # 0.7 10^3/uL (0.2-0.9); Monocytes % 9.9 %; Neutrophils # 4.72 10^3/uL (1.8-7.7); Neutrophils % 67.4 %; Nucleated Red Blood Cells % 0 %; Platelet Count 190 10^3/cmm (157-399); Red Blood Count 4.73 10^6/uL (3.85-5.65); Red Cell Distribution Width 13.8 % (12.1-15.1)
--- NOTE | 2024-06-12 16:46 | CTR_ITS ---
PROCEDURE INFORMATION: Exam: CT Right Lower Extremity, Hip Exam date and time: 06/12/2024 5:05 PM Age: 78 years old Clinical indication: Injury or trauma; Fall; Other: Pain TECHNIQUE: Imaging protocol: CT of the right lower extremity without contrast was performed. Exam focused on the hip. Radiation optimization: All CT scans at this facility use at least one of these dose optimization techniques: automated exposure control; mA and/or kV adjustment per patient size (includes targeted exams where dose is matched to clinical indication); or iterative reconstruction. COMPARISON: CR XR hip RT 2-3V wo/w pel* [id number] 06/12/2024 4:03 PM RADIATION DOSE METRICS: Total DLP (mGy-cm): 464 FINDINGS: Bones/joints: Normal. No acute fracture or dislocation. Soft tissues: Mild subcutaneous fat stranding within the posterior/medial upper thigh. The no loculated fluid collection. Vasculature: Vascular calcifications are noted. Reproductive: Punctate calcifications within the uterus may represent fibroids. CT/CT hip RT wo con* [id number] IMPRESSION: 1. No acute osseous findings. 2. Mild contusion within the posterior/medial upper thigh.
[2024-06-12 16:49] LABS: Ammonia 16 umol/L (11-51)
[2024-06-12 16:57] LABS: Charge for UA Resulting for Rev
[2024-06-12 17:00] LABS: Alanine Aminotransferase 14 U/L (0-33); Albumin Level 3.7 g/dL (3.5-5.2); Alkaline Phosphatase 161 U/L (35-105); Anion Gap 17.1 (5-19); Aspartate Amino Transferase 15 U/L (0-32); Blood Urea Nitrogen 20 mg/dL (8-23); Carbon Dioxide 22 mmol/L (22-29); Chloride 105 mmol/L (98-107); Globulin 3.1 g/dL (1.3-4.6); Glucose 116 mg/dL (65-115); Magnesium 2.2 mg/dL (1.7-2.3); Osmolality Calculated 294 mOsm/kg (285-295); Potassium 4.1 mmol/L (3.5-5.1); Sodium 140 mmol/L (136-145); Thyroid Stimulating Hormone 4.15 uIU/mL (0.27-4.20); Total Bilirubin 0.5 mg/dL (0.15-1.2); Total Protein 6.8 g/dL (6.6-8.7)
[2024-06-12 17:04] LABS: Bilirubin Urine Neg (Negative); Blood Urine Neg (Negative); Glucose Urine UA 4+ (Normal); Ketones Urine 2+ (Negative); Leukocyte Esterase Urine Negative (Negative); Nitrate Urine Positive (Negative); Protein Urine Neg (Negative); Urine Appearance Slightly Cloudy (CLEAR); Urine Color Yellow (Yellow); Urobilinogen Urine Norm (Negative); pH Urine 5 (5-7)
[2024-06-12 17:12] LABS: UA Manual Slide Review YES; UA Slide Review UA Slide Review Perf
[2024-06-12 17:13] LABS: Squamous Epithelial Cell Urine 0-4 /hpf (0-5); WBC Urine 0-4 /hpf (0-5)
[2024-06-12 17:14] LABS: Add Urine Culture? No; Bacteria Urine 1+ /hpf; Mucus Urine TRACE /hpf
--- NOTE | 2024-06-12 18:08 | P.HP_ITS ---
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 Patient stating that she is feeling somewhat better on her right side. Daughter is at the bedside is providing history, daughter stating that although she has expressive aphasia that has improved over the course of time and recently has gotten worse, she was seen in the ER few days ago and she was discharged home on antibiotics for UTI, she has had recurrent falls at home her right leg just gives up on her otherwise she is independent for daily activities. She was concerned about major stroke like last time. In the ER she has normal CBC BMP CT head unremarkable no sign of fracture. There are still signs of UTI. She is afebrile no sign of sepsis. She is able to move her right leg and keep it in there for 5 seconds but it is way weaker than her left leg. There is no facial droop daughter stating that there was facial droop on the right side which made her very anxious and concerned. Review of Systems 2 General: Reports: ROS unobtainable due to medical condition Medications/Allergies Home Medications Medication Instructions Recorded Confirmed Last Taken Type BIPAP MACHINE #1 ea 12/05/19 05/15/24 Unknown Rx BIPAP MASK #1 ea 12/05/19 05/15/24 Unknown Rx BIPAP SUPPLIES #1 ea 12/05/19 05/15/24 Unknown Rx blood-glucose meter (Easy Plus II #1 ea 05/23/20 05/15/24 Unknown Rx Blood Glucose Meter) blood sugar diagnostic (Easy Plus #50 ea 04/15/21 05/15/24 Unknown Rx II Test strips) fluticasone propionate 50 1 spray intranasal DAILY PRN 01/23/22 05/15/24 Unknown History mcg/actuation nasal ALLERGIES spray,suspension (Flonase Allergy Relief) levothyroxine 125 mcg capsule 125 mcg PO DAILY 90 days #90 caps 12/31/23 05/15/24 03/13/24 Rx rivaroxaban 20 mg tablet (Xarelto) See Rx Instructions .Route 12/31/23 05/15/24 03/13/24 Rx .COMPLEX #90 tabs venlafaxine 150 mg See Rx Instructions .Route 01/20/24 05/15/24 03/13/24 Rx capsule,extended release 24 hr .COMPLEX #30 caps metoprolol tartrate 50 mg tablet See Rx Instructions .Route 03/13/24 05/15/24 03/13/24 Rx .COMPLEX #180 tabs aspirin 81 mg tablet,delayed 81 mg PO DAILY@0800 #60 tabs 03/14/24 05/15/24 Unknown Rx release (Adult Low Dose Aspirin) empagliflozin 25 mg tablet 25 mg PO DAILY 03/14/24 05/15/24 03/13/24 History (Jardiance) pantoprazole 40 mg tablet,delayed 40 mg PO QAM 03/14/24 05/15/24 03/13/24 History release galcanezumab-gnlm 120 mg/mL 120 mg SUBCUT .monthly #1 mL 03/24/24 05/15/24 Unknown Rx subcutaneous pen injector (Emgality Pen) galcanezumab-gnlm 120 mg/mL 240 mg (2 mL) SUBCUT ONCE #2 mL 03/24/24 05/15/24 Unknown Rx subcutaneous pen injector (Emgality Pen) nitrofurantoin 100 mg PO BID 30 days #60 caps 03/24/24 05/15/24 Unknown Rx monohydrate/macrocrystals 100 mg capsule (Macrobid) zonisamide 100 mg capsule 500 mg (5 x 100 mg) PO DAILY #150 03/24/24 05/15/24 Unknown Rx caps amiodarone 200 mg tablet 200 mg PO DAILY@0800 #90 tabs 04/26/24 05/15/24 Unknown Rx amlodipine 10 mg tablet 10 mg PO DAILY #30 tabs 06/09/24 Unknown Rx atorvastatin 20 mg tablet 40 mg (2 x 20 mg) PO BEDTIME 90 06/09/24 Unknown Rx days #30 tabs cefdinir 300 mg capsule 300 mg PO BID 10 days #20 caps 06/09/24 Unknown Rx lisinopril 40 mg tablet 40 mg PO DAILY #60 tabs 06/09/24 Unknown Rx Allergies Allergy/AdvReac Type Severity Reaction Status Date / Time Penicillins Allergy Unknown Unknown Verified 06/12/24 16:12 tetanus and diphtheria Allergy Unknown Verified 06/12/24 16:12 toxoids penicillin G procaine AdvReac unknown Verified 06/12/24 16:12 PFSH Acute 2 PFSH: Medical History Hypertension Transient cerebral ischemia Chronic migraine without aura, intractable, with status migrainosus GERD (gastroesophageal reflux disease) 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) UTI (urinary tract infection) Dementia Obstructive sleep apnea Sleep apnea Type 2 diabetes mellitus Tachy-martin syndrome Non-insulin dependent diabetes mellitus -A1c (12/2019): 8.3 -Accucheks, ISS, hypoglycemia precautions -consistent carb diet as tolerated -takes metformin at home, can resume on d/c Drug-induced bradycardia Digoxin was discontinued along beta-alexandrea Atrial flutter Diastolic heart failure Generalized epilepsy CHF (congestive heart failure) Atrial fibrillation Severe obstructive sleep apnea Hypothyroidism Depressed Atrial dysrhythmia Diabetes 1.5, managed as type 2 Sleep apnea in adult Stroke due to embolism of left middle cerebral artery -prior hx of L MCA CVA in 05/2019; did not receive tPA -has been f/u with Dr. Randall -attributed to atrial fibrillation -on ASA, statin, AC with Eliquis -has residual cognitive impairment Seizure Heart failure Paroxysmal A-fib Surgical History Status post cardiac pacemaker procedure No pertinent past surgical history Family History Sister Diabetes Father Heart disease Mother Heart disease Social History Smoking and tobacco/nicotine status: never used tobacco/nicotine Alcohol intake: never Substance/Drug Use: never Vitals/I&O/Wt Last Vital Signs Pulse 65 06/12/24 16:07 BP 125/68 06/12/24 16:07 Pulse Ox 93 06/12/24 16:07 O2 Del Method Nasal Cannula 06/12/24 16:07 O2 Flow Rate 2 06/12/24 16:07 Physical Exam 2 Narrative: Right-sided weakness No active facial droop Expressive aphasia Able to comprehend verbal commands Euvolemic GCS 15 S1, S2 hemodynamic stable currently on 2 L saturating well Pleasant and cooperative Daughter is at the bedside Data 06/12/24 16:19 06/12/24 16:19 A&P Assessment and plan (1) Urinary tract infection: (2) Recurrent UTI: (3) Diabetes 1.5, managed as type 2: (4) Paroxysmal A-fib: (5) Medication noncompliance due to cognitive impairment: (6) TIA (transient ischemic attack): (7) Mild cognitive impairment with memory loss: (8) Multiple falls: (9) Hypersomnia: Plan TIA NIH will be 2 for numbness of right leg and mild weakness Will request PT Hemodynamically stable A-fib without RVR heart rate around 60s Recurrent falls Will request MRI head in the morning Check B12 level UTI: Continue ceftriaxone E. 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 Randall She is not a TNKase candidate her symptoms started few days ago She is already on anticoagulating agent Patient agreeable for rehab if needed Will request PT and OT No need of speech therapy, No slurring of speech at the time of evaluation Attestations 2 Medical Necessity Statement*: Anticipating discharge within 40 hours Diagnoses Urinary tract infection N39.0 Recurrent UTI N39.0 Diabetes 1.5, managed as type 2 E13.9 Paroxysmal A-fib I48.0 Medication noncompliance due to cognitive impairment Z91.14 TIA (transient ischemic attack) G45.9 Mild cognitive impairment with memory loss G31.84 Multiple falls R29.6 Hypersomnia G47.10
[2024-06-12] MEDS: cefTRIAXone 1,000 mg SDV 1000 MG IVP (18:39)
[2024-06-12 18:48] VITALS: BP 147/76; PULSE 70; O2SAT 92
[2024-06-12 19:36] LABS: Vitamin B12 320 pg/mL (232-1245)
[2024-06-12 19:48] VITALS: BP 163/90; PULSE 59; O2SAT 95
[2024-06-12 20:22] LABS: Estmated Average Glucose 169; Hemoglobin A1C 7.5 % (4.0-6.0)
[2024-06-12 22:12] VITALS: BP 151/77; PULSE 61; RESP 18; TEMP 36.4; O2SAT 94
[2024-06-12 22:39] VITALS: RESP 18; O2SAT 94
[2024-06-12] MEDS: morphine IR 15 mg Tablet PO (22:39)
[2024-06-12] MEDS: zonisamide 100 MG Capsule 200 MG PO (22:39)
[2024-06-12] MEDS: atorvastatin 40 mg Tablet PO (22:40)
[2024-06-13] VITALS (8 sets, daily range): BP systolic 95–122; BP diastolic 55–73; PULSE 60–118; RESP 16–18; TEMP 36.4–36.6; O2SAT 90–92
[2024-06-13 05:36] LABS: Magnesium 2.5 mg/dL (1.7-2.3)
[2024-06-13] MEDS: levothyroxine 125 mcg Tablet PO (06:09)
[2024-06-13] MEDS: rivaroxaban 10 mg Tablet 20 MG PO (08:16)
[2024-06-13] MEDS: sennosides-docusate Tablet 1 TAB PO (08:16)
[2024-06-13] MEDS: amlodipine 10 mg Tablet PO (08:16)
[2024-06-13] MEDS: lisinopril 20 mg Tablet PO (08:17)
[2024-06-13] MEDS: aspirin 81 mg EC Tablet PO (08:17)
[2024-06-13] MEDS: morphine IR 15 mg Tablet PO (08:17)
[2024-06-13] MEDS: cefTRIAXone 1,000 MG in sodium chloride 0.9% (plus) 50 ML 100 MG IV (08:17)
[2024-06-13] MEDS: amiodarone 200 mg Tablet PO (08:17)
--- NOTE | 2024-06-13 08:23 | P.PN_ITS ---
Subjective 2 Subjective: No overnight events Patient still endorsing heaviness and numbness of her right side Vitals/I&O/Wt Last Vital Signs Temp 97.5 F L 06/13/24 07:20 Pulse 60 06/13/24 07:20 Resp 16 06/13/24 08:17 BP 113/65 06/13/24 07:20 Pulse Ox 90 06/13/24 07:20 O2 Del Method Room Air 06/13/24 07:20 O2 Flow Rate 2 06/12/24 16:07 06/12/24 06/13/24 06/13/24 22:59 06:59 14:59 Intake Total 0 / 0 0 / 0 Balance 0 / 0 0 / 0 Weight last 48 hrs Weight 86.001 kg Weight 87.226 kg Physical Exam 2 Narrative: Right-sided weakness Handgrip is weak Strength of lower extremity weaker than left Awake and alert able to comprehend Expressive aphasia Hemodynamically stable Afebrile On room air Abdomen soft Bruises noted on knees and lower extremities Data 06/12/24 16:19 06/12/24 16:19 A&P Assessment and plan (1) Aphasia: (2) Mild cognitive impairment with memory loss: (3) Need for assistance due to reduced mobility: (4) Multiple falls: (5) CVA (cerebral vascular accident): (6) Diabetes 1.5, managed as type 2: (7) Paroxysmal A-fib: (8) Hypertension: Qualifiers: Hypertension type: essential hypertension Qualified Code(s): I10 - Essential (primary) hypertension (9) Medication noncompliance due to cognitive impairment: Plan TIA Expressive aphasia is old However her right lower extremity weakness has gotten worse Will request MRI head to rule out acute CVA Patient will need PT OT May need rehab/halfway A-fib without RVR Continue anticoagulating agent UTI Recurrent UTI with ESBL Start meropenem Hypertension: Normotensive continue antihypertensive regimen Hypothyroidism history continue levothyroxine Continue aspirin and atorvastatin Full code Attestations 2 Medical Necessity Statement*: Continue medical management Diagnoses Aphasia R47.01 Mild cognitive impairment with memory loss G31.84 Need for assistance due to reduced mobility Z74.09 Multiple falls R29.6 CVA (cerebral vascular accident) I63.9 Diabetes 1.5, managed as type 2 E13.9 Paroxysmal A-fib I48.0 Essential hypertension I10 Hypertension type: essential hypertension Medication noncompliance due to cognitive impairment Z91.14
[2024-06-13] MEDS: zonisamide 100 MG Capsule 300 MG PO (08:39)
[2024-06-13] MEDS: insulin lispro 100 unit/1 mL SUBCUT ×3 (08:39→17:35)
[2024-06-13] MEDS: meropenem 500 mg SDV IVP ×2 (08:41→17:35)
--- NOTE | 2024-06-13 09:00 | PC.CHAP ---
Pastoral Care Encounter/Spiritual Assessment Type of Contact [x] Declined roving tester laboratory visit [] Patient/Family/Request visit [] Outpatient visit [] Follow-up visit [] Physician referral [] Code/Alert [] Routine visit [] Staff referral [] Actively dying [] Patient sleeping [] Family support [] [] Out of room [] Palliative care [] [] Receiving care in room [] Pre-surgical visit [] Trauma [] Long length of stay [] ICU visit [] Other: Relational/Emotional Strength [] Patient feels connected with others/family/visitors/staff [] Distress [] Loneliness/isolation [] Abandonment Spirituality of Patient [] Person of Elizabeth [] Attends Methodist of their [place] [] Believes in Prayer [] Reads Bible or Pentecostalism materials [] There are Spiritual issues to be addressed Brazer Helper Induction Interventions [] Prayer [] Active listening [] Non-anxious presence [] Spiritual/emotional support [] Crisis/trauma care [] Spiritual counseling [] Bereavement support [] Provided bereavement packet [] Provided Bible/devotional materials [] Provided toy/stuffed animal, coloring book to patient or family member [] Provided Communion [] Anointing/[place] [] Salvation [] Completed spiritual assessment [] Other: Impact on Illness or Injury [] Angry [] Fearful [] Anxious [] Often cries [] Exhaustion [] Unable to work [] Unable to attend caodaism [] Unable to walk/stand [] Unable to read [] Unable to drive [] Unable to eat/drink [] Unable to sleep [] Unable to be with family [] Patient intubated [] Other: Summary Time spent with patient
--- NOTE | 2024-06-13 12:48 | CT_ITS ---
WS: [id number] CT ANGIOGRAM CEREBRAL AND CAROTID ARTERIES HISTORY: TIA TECHNIQUE: CT angiogram is performed of the carotid and cerebral arteries. During arterial injection imaging is obtained from the skull vertex to the aortic arch in 1.25 mm imaging. Coronal and sagittal reformats are submitted. Additional multi planar reformats of the carotid and cerebral arteries are submitted, MIP imaging also reviewed. NASCET criteria utilized. All CT scans at [facility] us e at least one of these dose optimization techniques: automated exposure control; mA and/or kV adjust ment per patient size (includes targeted exams where dose is matched to clinical indication); or iter ative reconstruction. CONTRAST: Omnipaque 350; 100 mL IV. DLP: 1072.12 mGy.cm COMPARISON: CT head 06/12/2024. Noncontrast CT head is performed. Reidentified is a large area of encephalomalacia from chronic infar ct in the RIGHT temporoparietal region. New area of decreased attenuation and sulcal effacement in th e posterior RIGHT frontal parietal region. This area of decreased attenuation was not no intracranial hemorrhage. No midline shift. Apparent on the prior CT of 06/08/2024 or 06/12/2024. Remote wedge-shape d infarct in the inferior RIGHT cerebellum. Carotid Angiogram: Right carotid: Common carotid artery: Arises normally from the innominate artery. No significant plaque or stenosis. Internal carotid artery: Small amount of calcified plaque near the bifurcation but no high-grade sten osis. External carotid artery: Patent. There is a tiny focus of contrast extending and inseparable from the proximal internal and external carotid arteries. This may be a small plaque ulceration. It is diffic ult to tell its origin as it contacts both the ICA and ECA. Left carotid: Common carotid artery: Normally arises from the aorta. In the distal cervical carotid artery there is increasing plaque and luminal thickening. Internal carotid artery: Calcified plaque with no stenosis. External carotid artery: Patent. Right vertebral artery: Unremarkable. Left vertebral artery: Dominant and normally arises from the LEFT subclavian. Subclavian arteries: No stenosis or significant abnormality. Upper thorax: Scattered groundglass attenuation at the lung apices. Thyroid gland: Small caliber surgically absent RIGHT thyroid. Mild nodular appearance of the LEFT thy roid lobe. Hypervascular nodule along the RIGHT neck may be a small lymph node at the residual of the RIGHT thyroid gland. Osseous structures: Unremarkable. CEREBRAL ANGIOGRAM: Intracranial vertebral arteries: Dominant LEFT vertebral artery. Basilar artery: No significant stenosis or occlusion. No aneurysm. Intracranial Internal carotid arteries: Calcified plaques of the cavernous sinuses. No occlusions. Middle cerebral arteries: RIGHT middle cerebral artery is normal. Abnormal LEFT middle cerebral arter y. The M1 and M2 segments are well enhanced. There is mild stenosis in the distal LEFT M1 segment but good enhancement distally. There is a paucity of vessels in the M3 and M4 segments of the distal LEF T MCA in the region of the infarct that was described in the posterior LEFT frontal parietal region w hich is new. Anterior cerebral arteries and ACOM: Normal. Posterior cerebral arteries and PCOM's: Normal size. Persistent circulation on the RIGHT. Both posterior communicating arteries are well visualized. Dural venous sinuses are normally enhancing. Mastoid air cells: Normal. Paranasal sinuses: Normal. Calvarium: Hyperostosis frontalis interna. CT/CT angio headneck* [id number] IMPRESSION: 1. New area of sulcal effacement and ischemia since 06/12/2024 in the posterior LEFT fronto-parietal region. 2. No areas of hemorrhage or acute blood products since the prior study. 3. Paucity of vessels in the LEFT M3 and M4 branches of the MCA at the site of the new infarct. Consistent with the area of ischemia. Small caliber distal LE FT MCA, spasm versus thrombosis. 4. Remote RIGHT temporal occipital lobe infarct. 5. Remote RIGHT cerebellar infarct. 6. Mild atherosclerosis cervical carotid arteries with no significant stenosis . 7. Moderate plaque to the carotid cavernous sinuses.
[2024-06-13] MEDS: iohexol 350 mg/mL 500 mL Btl (per mL) IV (14:10)
[2024-06-13 20:24] LABS: Glucose Point of Care 190 mg/dL (70-110)
[2024-06-13] MEDS: aspirin 325 mg Tablet 160 MG PO (21:22)
[2024-06-13] MEDS: zonisamide 100 MG Capsule 200 MG PO (21:22)
[2024-06-13] MEDS: atorvastatin 40 mg Tablet PO (21:23)
[2024-06-13] MEDS: lactated ringers 1,000 ML 30 ML IV (21:23)
[2024-06-14] VITALS (7 sets, daily range): BP systolic 97–122; BP diastolic 57–76; PULSE 59–90; RESP 15–18; TEMP 36.4–37; O2SAT 91–95
[2024-06-14] MEDS: meropenem 500 mg SDV IVP ×3 (00:02→21:35)
[2024-06-14 05:21] LABS: Basophils % 0.6 %; Eosinophils # 0.2 10^3/uL (0.0-0.8); Eosinophils % 2.7 %; Hematocrit 43.8 % (36-47); Lymphocytes # 1.6 10^3/uL (0.8-4.8); Lymphocytes % 22.2 %; Mean Corpuscular HGB Conc 31.1 g/dL (30-55); Mean Corpuscular Hemoglobin 30.6 pg (27-33); Mean Corpuscular Volume 98.4 fl (85-98); Mean Platelet Volume 11.8 fL (7.4-10.4); Monocytes # 0.8 10^3/uL (0.2-0.9); Monocytes % 10.8 %; Neutrophils # 4.44 10^3/uL (1.8-7.7); Neutrophils % 63.1 %; Nucleated Red Blood Cells % 0 %; Platelet Count 216 10^3/cmm (157-399); Red Blood Count 4.45 10^6/uL (3.85-5.65); Red Cell Distribution Width 14.1 % (12.1-15.1); White Blood Count 7.03 10^3/uL (3.29-11.43)
[2024-06-14 05:48] LABS: Anion Gap 14.6 (5-19); Blood Urea Nitrogen 34 mg/dL (8-23); Calcium 9.8 mg/dL (8.5-10.5); Carbon Dioxide 23 mmol/L (22-29); Chloride 106 mmol/L (98-107); Creatinine Clr Calc Pharmacy 34.5543; Glucose 165 mg/dL (65-115); Osmolality Calculated 301 mOsm/kg (285-295); Potassium 3.6 mmol/L (3.5-5.1); Sodium 140 mmol/L (136-145)
[2024-06-14] MEDS: levothyroxine 125 mcg Tablet PO (05:58)
[2024-06-14 06:21] LABS: Glucose Point of Care 172 mg/dL (70-110)
[2024-06-14] MEDS: zonisamide 100 MG Capsule 300 MG PO (08:12)
[2024-06-14] MEDS: amiodarone 200 mg Tablet PO (08:12)
[2024-06-14] MEDS: insulin lispro 100 unit/1 mL SUBCUT ×2 (08:12→12:36)
[2024-06-14] MEDS: aspirin 325 mg Tablet 160 MG PO (08:12)
[2024-06-14] MEDS: sennosides-docusate Tablet 1 TAB PO (08:12)
--- NOTE | 2024-06-14 09:10 | P.PN_ITS ---
Subjective 2 Subjective: CT head and neck reviewed and discussed with the family Permissive hypertension Holding her diabetes regimen Creatinine 1.5 Start IV fluids Speech therapy and Occupational Therapy pending Pursuing fdc placement Patient was hypotensive this morning Holding off on anticoagulating agent for risk of conversion to hemorrhagic stroke Vitals/I&O/Wt Last Vital Signs Temp 97.6 F 06/14/24 08:00 Pulse 60 06/14/24 08:00 Resp 17 06/14/24 08:00 BP 97/57 06/14/24 08:00 Pulse Ox 94 06/14/24 08:00 O2 Del Method Room Air 06/14/24 08:00 O2 Flow Rate 3 06/14/24 07:34 06/13/24 06/14/24 06/14/24 22:59 06:59 14:59 Intake Total 290 / 923.333 100 / 1023.333 Output Total 350 / 550 Balance -60 / 373.333 100 / 473.333 Weight last 48 hrs Weight 85.729 kg Weight 86.001 kg Weight 87.226 kg Physical Exam 2 Narrative: Right-sided hemiplegia Right-sided facial droop Patient has expressive aphasia which is chronic Patient is able to comprehend and follow commands 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 Bruises lower extremity no active ecchymosis Pleasant and cooperative No pupillary asymmetry Currently on room air Blood pressure 97/57 mg weekly Heart rate 60 Data 06/14/24 04:22 06/14/24 04:22 A&P Assessment and plan (1) Acute CVA (cerebrovascular accident): (2) Mild cognitive impairment with memory loss: (3) Aphasia: (4) Need for assistance due to reduced mobility: (5) Need for assistance with personal care: (6) Multiple falls: (7) Paroxysmal A-fib: (8) Hypotension: Plan Acute CVA CT head and neck remarkable for effacement related to vasogenic edema Thromboembolic stroke Holding off on Xarelto for risk of conversion to hemorrhagic stroke Allow permissive hypertension Holding off on antihypertensive regimen Agree with IV fluids Avoid hypotonic IV fluids Patient has prominent right-sided facial droop today, chronic aphasia which is expressive, right-sided upper extremity and lower extremity weakness. 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 Randall Attestations 2 Medical Necessity Statement*: Continue medical management Patient is extremely weak needing daily PT Diagnoses Acute CVA (cerebrovascular accident) I63.9 Mild cognitive impairment with memory loss G31.84 Aphasia R47.01 Need for assistance due to reduced mobility Z74.09 Need for assistance with personal care Z74.1 Multiple falls R29.6 Paroxysmal A-fib I48.0 Hypotension I95.9
[2024-06-14 11:27] LABS: Glucose Point of Care 218 mg/dL (70-110)
--- NOTE | 2024-06-14 14:16 | PC.PHAR ---
Renal dosed Merrem 500 mg q8h to q12h based on crcl < 50 Thank you, Becky Shafer h
--- NOTE | 2024-06-14 15:28 | PC.SOCIAL ---
IMM Updated IMM initialed and dated. Copy given to patient and copy placed in chart.
[2024-06-14 16:26] LABS: Glucose Point of Care 234 mg/dL (70-110)
[2024-06-14 16:52] LABS: Glucose Point of Care 118 mg/dL (70-110)
[2024-06-14] MEDS: zonisamide 100 MG Capsule 200 MG PO (21:36)
[2024-06-14] MEDS: atorvastatin 40 mg Tablet PO (21:36)
[2024-06-15] VITALS (7 sets, daily range): BP systolic 102–153; BP diastolic 54–70; PULSE 73–118; RESP 15–18; TEMP 36.2–37; O2SAT 92–95
[2024-06-15 05:19] LABS: Anion Gap 14.5 (5-19); Blood Urea Nitrogen 33 mg/dL (8-23); Calcium 9.6 mg/dL (8.5-10.5); Carbon Dioxide 22 mmol/L (22-29); Chloride 108 mmol/L (98-107); Creatinine Clr Calc Pharmacy 47.0447; Glucose 167 mg/dL (65-115); Osmolality Calculated 303 mOsm/kg (285-295); Potassium 3.5 mmol/L (3.5-5.1); Sodium 141 mmol/L (136-145)
[2024-06-15 06:19] LABS: Glucose Point of Care 169 mg/dL (70-110)
[2024-06-15] MEDS: levothyroxine 125 mcg Tablet PO (06:25)
[2024-06-15] MEDS: aspirin 325 mg Tablet 160 MG PO (08:39)
[2024-06-15] MEDS: sennosides-docusate Tablet 2 TAB PO ×2 (08:40→17:44)
[2024-06-15] MEDS: meropenem 500 mg SDV IVP ×2 (08:40→20:32)
[2024-06-15] MEDS: amiodarone 200 mg Tablet PO (08:40)
[2024-06-15] MEDS: zonisamide 100 MG Capsule 300 MG PO (08:40)
[2024-06-15] MEDS: acetaminophen 500 mg Tablet PO (08:41)
[2024-06-15] MEDS: insulin lispro 100 unit/1 mL SUBCUT ×2 (08:41→12:27)
--- NOTE | 2024-06-15 08:51 | P.PN_ITS ---
Subjective 2 Subjective: This morning patient is complaining of headache She is on 2 L, I have asked RT to wean her off oxygen Sister asking for Flonase Repeat CT head Vitals/I&O/Wt Last Vital Signs Temp 98 F 06/15/24 08:00 Pulse 102 H 06/15/24 08:09 Resp 18 06/15/24 08:09 BP 114/63 06/15/24 08:00 Pulse Ox 95 06/15/24 08:09 O2 Del Method Nasal Cannula 06/15/24 08:09 O2 Flow Rate 2 06/15/24 08:09 06/14/24 06/15/24 06/15/24 22:59 06:59 14:59 Intake Total 1126 / 1366 120 / 1486 Output Total 300 / 300 Balance 1126 / 1366 -180 / 1186 Weight last 48 hrs Weight 85.729 kg Weight 85.729 kg Physical Exam 2 Narrative: Patient has worsening of aphasia Facial droop slightly better today Patient is able to comprehend and follow commands Getting frustrated because she is not able to express IV fluid at the bedside S1, S2 Abdomen soft No audible stridor or wheezing Data 06/14/24 04:22 06/15/24 04:09 A&P Assessment and plan (1) Paroxysmal A-fib: (2) Diabetes 1.5, managed as type 2: (3) ANGIE (acute kidney injury): (4) Urinary tract infection: (5) Acute cystitis: (6) Acute CVA (cerebrovascular accident): (7) Mild cognitive impairment with memory loss: (8) Oxygen dependent: (9) Multiple falls: (10) Need for assistance due to reduced mobility: (11) Need for assistance with personal care: Plan Worsening headache Acute CVA Continue medical management aspirin, Dr. Randall is okay with continuation of rivaroxaban Discontinue IV fluids Patient is on dysphagia diet Appreciate PT OT ST recommendations Awaiting correction placement Repeat CT head today Continue aspirin along rivaroxaban Hold antihypertensive regimen For ESBL UTI continue meropenem Attestations 2 Medical Necessity Statement*: Possible discharge by tomorrow Diagnoses Paroxysmal A-fib I48.0 Diabetes 1.5, managed as type 2 E13.9 ANGIE (acute kidney injury) N17.9 Urinary tract infection N39.0 Acute cystitis N30.00 Acute CVA (cerebrovascular accident) I63.9 Mild cognitive impairment with memory loss G31.84 Oxygen dependent Z99.81 Multiple falls R29.6 Need for assistance due to reduced mobility Z74.09 Need for assistance with personal care Z74.1
--- NOTE | 2024-06-15 08:54 | CT_ITS ---
WS: [id number] CT HEAD NONCONTRAST HISTORY: Worsening headache TECHNIQUE: Contiguous axial imaging performed through the brain in 3.0 mm imaging. Bone and soft tiss ue windows. Sagittal and coronal reformats reviewed. All CT scans at [facility] use at least one of these dose optimization techniques: automated exposure control; mA and/or kV adjustment per pa tient size (includes targeted exams where dose is matched to clinical indication); or iterative recon struction. DLP: 1096.58 mGy.cm COMPARISON: 06/13/2024, 06/12/2024 No acute intracranial hemorrhage. The chronic infarct in the LEFT temporo-occipital region and the RI GHT cerebellum are stable. Evolving subacute infarct is reidentified involving portions of the LEFT f rontal parietal and inferior LEFT temporal lobe. No midline shift. There is sulcal effacement from the more acute subacute infarct. Ventricles: Normal size with no hydrocephalus. Paranasal sinuses: As visualized are clear. Mastoid air cells: Well pneumatized. Calvarium and scalp: Hyperostosis frontalis interna. CT/CT head wo con* [id number] IMPRESSION: 1. Evolving subacute LEFT frontoparietal infarct which may also extend into th e temporal lobe. There is no acute hemorrhage associated. Evolution as expected since 06/13/2024. 2. Remote LEFT temporo-occipital lobe infarct. 3. Sulcal effacement at the site of the acute infarct as expected.
[2024-06-15 11:50] LABS: Glucose Point of Care 188 mg/dL (70-110)
[2024-06-15 17:10] LABS: Glucose Point of Care 101 mg/dL (70-110)
[2024-06-15 20:26] LABS: Glucose Point of Care 188 mg/dL (70-110)
[2024-06-15] MEDS: zonisamide 100 MG Capsule 200 MG PO (20:32)
[2024-06-15] MEDS: atorvastatin 40 mg Tablet PO (20:32)
[2024-06-15] MEDS: fluticasone nasal spray 16gm Btl 2 SPRAY NASAL (23:11)
[2024-06-16] VITALS: BP 129/75; PULSE 95; RESP 17; TEMP 36.6; O2SAT 95
[2024-06-16 04:00] VITALS: BP 110/66; PULSE 89; RESP 16; TEMP 36.9; O2SAT 90
[2024-06-16] MEDS: levothyroxine 125 mcg Tablet PO (05:39)
[2024-06-16 08:00] VITALS: BP 136/82; PULSE 98; RESP 18; TEMP 36.3; O2SAT 93
[2024-06-16 08:13] LABS: SARS Covid-2 Antigen Negative (Negative)
[2024-06-16] MEDS: aspirin 325 mg Tablet 160 MG PO (08:22)
[2024-06-16] MEDS: sennosides-docusate Tablet 2 TAB PO (08:22)
[2024-06-16] MEDS: rivaroxaban 10 mg Tablet 20 MG PO (08:23)
[2024-06-16] MEDS: amiodarone 200 mg Tablet PO (08:23)
[2024-06-16] MEDS: zonisamide 100 MG Capsule 300 MG PO (08:24)
[2024-06-16] MEDS: fluticasone nasal spray 16gm Btl 2 SPRAY NASAL (08:28)
[2024-06-16] MEDS: insulin lispro 100 unit/1 mL SUBCUT ×2 (08:29→11:41)
--- NOTE | 2024-06-16 09:22 | P.DS_ITS ---
Discharge Providers Date of Admission: 06/13/24 16:52 Date of Discharge: June 16, 2024 Attending Provider at Admission: Oanh Amor MD Attending Provider at Discharge: Oanh Amor MD Primary Care Provider: STEFANI Villaseñor Diagnoses at Discharge Discharge Diagnosis (1) Paroxysmal A-fib: Status: Acute (2) Diabetes 1.5, managed as type 2: Status: Acute (3) ANGIE (acute kidney injury): Status: Acute (4) Urinary tract infection: Status: Acute (5) Acute cystitis: Status: Acute (6) Acute CVA (cerebrovascular accident): Status: Acute (7) Mild cognitive impairment with memory loss: Status: Acute (8) Oxygen dependent: Status: Acute (9) Multiple falls: Status: Acute (10) Need for assistance due to reduced mobility: Status: Acute (11) Need for assistance with personal care: Status: Acute Reason for Visit Reason for Visit: right knee/hip pain post fall Hospital Course Hospital Course 78-year-old female with history of A-fib on chronic anticoagulation, came from home for recurrent falls, as per the sister her symptoms started few days prior to her hospitalization, she was seen in the ER when she was diagnosed with UTI and sent home on oral antibiotics, 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 Randall who recommended continuation of aspirin along Eliquis. Compliance with medication was questionable. 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 During hospitalization repeat CT head showed evolution of thromboembolic CVA. Patient is working with PT. Walked 8 feet with the help of PT at the day of discharge. We have requested correction placement for her. Patient is not able to take care of her at all because of right-sided hemiplegia. She also has right-sided facial droop. She is able to comprehend all the verbal commands. She has significant expressive aphasia which is chronic. At the time of discharge she will continue anticoagulating agent, aspirin along atorvastatin. I have reduced the dose of lisinopril because her blood pressure remained softer during hospitalization. Speech therapist recommended level 7 easy to chew diet. She did not spike fever no leukocytosis, she is colonized with E. coli ESBL will give 2 weeks of nitrofurantoin Physical Exam Narrative: Right-sided facial droop Right-sided hemiplegia Expressive aphasia Able to comprehend verbal commands No pupillary asymmetry Sister at the bedside S1, S2 Hemodynamically stable Currently on room air Work with PT today Discharge Data Studies Completed and Pending Completed Studies During Hospitalization Category Date Time Status CT head wo con* [id number] Routine Cat Scan 06/15/24 08:[address] head wo con* [id number] Stat Cat Scan 06/12/24 16:[address] hip RT wo con* [id number] Stat Cat Scan 06/12/24 16:46 Completed CTA head neck [CT angio headneck* [id number]] Stat Cat Scan 06/13/24 12:48 Completed CXRP [XR chest 1V portable [id number]] Stat Exams 06/12/24 15:56 Completed XR femur RT min 2V* [id number] Stat Exams 06/12/24 16:00 Completed XR hip RT 2-3V wo/w pel* [id number] Stat Exams 06/12/24 15:56 Completed XR knee RT 3V* [id number] Stat Exams 06/12/24 15:56 Completed Radiology Impressions Chest X-Ray 06/12/24 15:56 IMPRESSION: Central pulmonary vascular congestion without overt edema. No consolidative airspace disease. Hip/Pelvis X-Ray 06/12/24 15:56 IMPRESSION: No acute findings. Knee X-Ray 06/12/24 15:56 IMPRESSION: No acute osseous findings. Femur X-Ray 06/12/24 16:00 IMPRESSION: Nondisplaced intertrochanteric fracture of the hip not entirely excluded. Correlate with physical exam findings. CT could be considered for further assessment if clinically warranted. Hip CT 06/12/24 16:46 IMPRESSION: 1. No acute osseous findings. 2. Mild contusion within the posterior/medial upper thigh. Head/Neck CTA 06/13/24 12:48 IMPRESSION: 1. New area of sulcal effacement and ischemia since 06/12/2024 in the posterior LEFT fronto-parietal region. 2. No areas of hemorrhage or acute blood products since the prior study. 3. Paucity of vessels in the LEFT M3 and M4 branches of the MCA at the site of the new infarct. Consistent with the area of ischemia. Small caliber distal LEFT MCA, spasm versus thrombosis. 4. Remote RIGHT temporal occipital lobe infarct. 5. Remote RIGHT cerebellar infarct. 6. Mild atherosclerosis cervical carotid arteries with no significant stenosis. 7. Moderate plaque to the carotid cavernous sinuses. Head CT 06/15/24 08:54 IMPRESSION: 1. Evolving subacute LEFT frontoparietal infarct which may also extend into the temporal lobe. There is no acute hemorrhage associated. Evolution as expected since 06/13/2024. 2. Remote LEFT temporo-occipital lobe infarct. 3. Sulcal effacement at the site of the acute infarct as expected. Laboratory Results WBC 7.03 10^3/uL (3.29-11.43) 06/14/24 04:22 RBC 4.45 10^6/uL (3.85-5.65) 06/14/24 04:22 Hgb 13.60 g/dL (11.27-16.99) 06/14/24 04:22 Hct 43.8 % (36-47) 06/14/24 04:22 MCV 98.4 fl (85-98) H 06/14/24 04:22 MCH 30.6 pg (27-33) 06/14/24 04:22 MCHC 31.1 g/dL (30-55) 06/14/24 04:22 RDW 14.1 % (12.1-15.1) 06/14/24 04:22 Plt Count 216 10^3/cmm (157-399) 06/14/24 04:22 MPV 11.8 fL (7.4-10.4) H 06/14/24 04:22 Neut % (Auto) 63.1 % 06/14/24 04:22 Lymph % (Auto) 22.2 % 06/14/24 04:22 [place] % (Auto) 10.8 % 06/14/24 04:22 Eos % (Auto) 2.7 % 06/14/24 04:22 Baso % (Auto) 0.6 % 06/14/24 04:22 Neut # (Auto) 4.44 10^3/uL (1.8-7.7) 06/14/24 04:22 Lymph # (Auto) 1.6 10^3/uL (0.8-4.8) 06/14/24 04:22 [place] # (Auto) 0.8 10^3/uL (0.2-0.9) 06/14/24 04:22 Eos # (Auto) 0.2 10^3/uL (0.0-0.8) 06/14/24 04:22 Baso # (Auto) 0.0 10^3/uL (0.0-0.1) 06/14/24 04:22 Nucleated RBC % (auto) 0 % 06/14/24 04:22 Nucleated RBCs # 0.0 /100WBC 06/14/24 04:22 PT 14.60 SECONDS (12.1-14.9) 06/12/24 16:19 INR 1.10 (0.8-1.2) 06/12/24 16:19 Sodium 141 mmol/L (136-145) 06/15/24 04:09 Potassium 3.5 mmol/L (3.5-5.1) 06/15/24 04:09 Chloride 108 mmol/L (98-107) H 06/15/24 04:09 Carbon Dioxide 22 mmol/L (22-29) 06/15/24 04:09 Anion Gap 14.5 (5-19) 06/15/24 04:09 BUN 33 mg/dL (8-23) H 06/15/24 04:09 Creatinine 1.1 mg/dL (0.5-0.9) H 06/15/24 04:09 GFR Calculation Not Reportable 06/15/24 04:09 Glucose 167 mg/dL (65-115) H 06/15/24 04:09 POC Glucose 188 mg/dL (70-110) H 06/15/24 20:18 Estimat Average Glucose 169 06/12/24 16:19 Hemoglobin A1c 7.5 % (4.0-6.0) H 06/12/24 16:19 Calculated Osmolality 303 mOsm/kg (285-295) H 06/15/24 04:09 Calcium 9.6 mg/dL (8.5-10.5) 06/15/24 04:09 Magnesium 2.5 mg/dL (1.7-2.3) H 06/13/24 04:36 Total Bilirubin 0.5 mg/dL (0.15-1.2) 06/12/24 16:19 AST 15 U/L (0-32) 06/12/24 16:19 ALT 14 U/L (0-33) 06/12/24 16:19 Alkaline Phosphatase 161 U/L (35-105) H 06/12/24 16:19 Ammonia 16 umol/L (11-51) 06/12/24 16:19 Total Protein 6.8 g/dL (6.6-8.7) 06/12/24 16:19 Albumin 3.7 g/dL (3.5-5.2) 06/12/24 16:19 Globulin 3.1 g/dL (1.3-4.6) 06/12/24 16:19 Vitamin B12 320 pg/mL (232-1245) 06/12/24 16:19 TSH 4.15 uIU/mL (0.27-4.20) 06/12/24 16:19 Urine Color Yellow (Yellow) 06/12/24 16:53 Urine Appearance Slightly cloudy (CLEAR) 06/12/24 16:53 Urine pH 5 (5-7) 06/12/24 16:53 Ur Specific [place] 1.020 (1.005-1.030) 06/12/24 16:53 Urine Protein Neg (Negative) 06/12/24 16:53 Urine Glucose (UA) 4+ (Normal) H 06/12/24 16:53 Urine Ketones 2+ (Negative) H 06/12/24 16:53 Urine Blood Neg (Negative) 06/12/24 16:53 Urine Nitrate Positive (Negative) A 06/12/24 16:53 Urine Bilirubin Neg (Negative) 06/12/24 16:53 Urine Urobilinogen Norm mg/dL (Negative) 06/12/24 16:53 Ur Leukocyte Esterase Negative (Negative) 06/12/24 16:53 Urine RBC None /hpf (0-2) 06/12/24 16:53 Urine WBC 0-4 /hpf (0-5) H 06/12/24 16:53 Ur Squamous Epith Cells 0-4 /hpf (0-5) H 06/12/24 16:53 Amorphous Sediment Not Reportable 06/12/24 16:53 Urine Bacteria 1+ /hpf (NONE) H 06/12/24 16:53 Urine Mucus Trace /hpf 06/12/24 16:53 SARS-CoV-2 Ag (Rapid) Negative (Negative) 06/16/24 06:46 Vitals Last Vital Signs Temp 97.4 F L 06/16/24 08:00 Pulse 98 06/16/24 08:00 Resp 18 06/16/24 08:00 BP 136/82 06/16/24 08:00 Pulse Ox 93 06/16/24 08:00 O2 Del Method Nasal Cannula 06/16/24 04:00 O2 Flow Rate 2 06/16/24 04:00 Discharge Plan Discharge Patient Disposition: Xfer SNF Condition: Stable Prescriptions: New Macrobid 100 mg capsule 100 mg PO Q12H 14 Days Qty: 28 0RF Rx Instructions: must administer with a meal/food Continued (DME) BIPAP MACHINE Qty: 1 0RF Rx Instructions: As directed (DME) BIPAP MASK Qty: 1 2RF Rx Instructions: As directed (DME) BIPAP SUPPLIES Qty: 1 2RF Rx Instructions: As directed (DME) Easy Plus II Test Strip See Rx Instructions .ROUTE .MEDSUPPLY Qty: 50 3RF Rx Instructions: use one strip to check blood sugars two time daily levothyroxine 125 mcg capsule 125 mcg PO DAILY 90 Days Qty: 90 0RF Xarelto 20 mg tablet See Rx Instructions .ROUTE .COMPLEX Qty: 90 1RF Dose Instruction: TAKE ONE TABLET BY MOUTH DAILY Rx Instructions: TAKE ONE TABLET BY MOUTH DAILY zonisamide 100 mg capsule 500 mg PO DAILY Qty: 150 11RF Rx Instructions: TAKE 5 CAPSULES BY MOUTH DAILY (DME) blood-glucose meter [Easy Plus II Blood Glucose Met] [facility] [place] Rx Instructions .ROUTE .MEDSUPPLY Qty: 1 0RF Rx Instructions: use meter two times a day to check blood sugar venlafaxine 150 mg capsule,extended release 24hr See Rx Instructions .ROUTE .COMPLEX Qty: 30 3RF Dose Instruction: TAKE ONE CAPSULE BY MOUTH EVERY DAY Rx Instructions: TAKE ONE CAPSULE BY MOUTH EVERY EVENING. metoprolol tartrate 50 mg tablet See Rx Instructions .ROUTE .COMPLEX Qty: 180 0RF Dose Instruction: TAKE ONE TABLET BY MOUTH TWICE DAILY AT 8am AND 8pm Rx Instructions: TAKE ONE TABLET BY MOUTH TWICE DAILY AT 8am AND 8pm atorvastatin 20 mg tablet 40 mg PO BEDTIME 90 Days Qty: 30 3RF pantoprazole 40 mg tablet,delayed release (DR/EC) 40 mg PO QAM Jardiance 25 mg tablet 25 mg PO DAILY aspirin [Adult Low Dose Aspirin] 81 mg tablet,delayed release (DR/EC) 81 mg PO DAILY@0800 Qty: 60 0RF cefdinir 300 mg capsule 300 mg PO BID 10 Days Qty: 20 0RF bumetanide 1 mg Tablet 1 mg PO PRN PRN (Reason: Edema) Changed lisinopril 40 mg tablet 10 mg PO DAILY Qty: 60 0RF Held amlodipine 10 mg tablet 10 mg PO DAILY Qty: 30 0RF Hold Instructions: Resume on 06/18/24. Discharge Orders: Discharge Order (Routine); Ordered 06/16/24 Ordered By: Oanh Amor Referrals: [facility] [Outside] Aretha Davies FNP [Primary Care Provider] - 06/20/24 1:40 pm () Patient Instructions: Opioid Safety Discharge Attestations Time Spent in Discharge Care*: greater than 30 min Status at Discharge: Cognitive status at discharge: cognitively intact , Behavioral status at discharge: cooperative , Quality Metrics Clinical Quality Measures [ No reported AMI, CVA or VTE this stay] Coding Level of Care Code Acute Code for Chg Fwd Diagnoses Paroxysmal A-fib I48.0 Diabetes 1.5, managed as type 2 E13.9 ANGIE (acute kidney injury) N17.9 Urinary tract infection N39.0 Acute cystitis N30.00 Acute CVA (cerebrovascular accident) I63.9 Mild cognitive impairment with memory loss G31.84 Oxygen dependent Z99.81 Multiple falls R29.6 Need for assistance due to reduced mobility Z74.09 Need for assistance with personal care Z74.1
[2024-06-16 11:14] LABS: Glucose Point of Care 150 mg/dL (70-110)
--- NOTE | 2024-06-16 11:32 | PC.SOCIAL ---
IMM Updated Updated pt on IMM. No questions voiced. Provided pt a copy. Initialed, dated, & timed a copy & placed in chart.
[2024-06-16 11:38] LABS: Glucose Point of Care 202 mg/dL (70-110)
[2024-06-16 12:00] VITALS: BP 115/82; PULSE 118; RESP 18; TEMP 36.5; O2SAT 90
[2024-06-16 12:39] VITALS: BP 115/82; PULSE 118; RESP 18; TEMP 36.5; O2SAT 90
== END 2024-06-16 12:40 | disposition skilled nursing facility (03) | DRG 65 ==
LOC: ER 17:29 → MEDSURG 20:18
PROVIDERS: Admitting Provider Internal Medicine; Emergency Provider Emergency Medicine; PCP Registered Nurse; Visit Provider Internal Medicine
DX: I63.312 Cerebral infarction due to thrombosis of left middle cerebral artery (principal); G81.91 Hemiplegia, unspecified affecting right dominant side; N39.0 Urinary tract infection, site not specified; Z16.12 Extended spectrum beta lactamase (ESBL) resistance; N17.9 Acute kidney failure, unspecified; B96.20 Unspecified Escherichia coli [E. coli] as the cause of diseases classified elsewhere; I69.920 Aphasia following unspecified cerebrovascular disease; I48.0 Paroxysmal atrial fibrillation; G43.011 Migraine without aura, intractable, with status migrainosus; K21.9 Gastro-esophageal reflux disease without esophagitis; F03.90 Unspecified dementia, unspecified severity, without behavioral disturbance, psychotic disturbance, mood disturbance, and anxiety; G47.33 Obstructive sleep apnea (adult) (pediatric); E13.9 Other specified diabetes mellitus without complications; E03.9 Hypothyroidism, unspecified; F32.A Depression, unspecified; I95.9 Hypotension, unspecified; Z91.148 Patient's other noncompliance with medication regimen for other reason; Z91.81 History of falling; Z79.82 Long term (current) use of aspirin; Z79.84 Long term (current) use of oral hypoglycemic drugs; Z87.440 Personal history of urinary (tract) infections; Z11.52 Encounter for screening for COVID-19; Z79.01 Long term (current) use of anticoagulants
CPT/HCPCS: 36415; 36416; 70450; 70496; 70498; 71045; 73502; 73552; 73562; 73700; 80048; 80053; 81003; 81015; 82140; 82607; 82962; 83036; 83735; 84443; 85025; 85610; 87426; 92507; 92523; 92526; 92610; 93005; 96372; 96374; 97110; 97116; 97162; 97167; 97530; 97535; 99285; G0378; J0696; J1815; J2185; J7120; Q9967

== ENCOUNTER 2024-10-26 08:20 | Inpatient (IN) | payer MEDICARE, OTHER, SELFPAY ==
[2024-10-26] VITALS (33 sets, daily range): BP systolic 113–158; BP diastolic 60–116; PULSE 92–125; RESP 16–26; TEMP 36.8; O2SAT 91–100; BMI 31.4
--- NOTE | 2024-10-26 08:21 | CT_ITS ---
WS: [id number] CT HEAD TECHNIQUE: Noncontrast CT of the head obtained from the skullbase to the vertex. CLINICAL INFORMATION: ACUTE SYMPTOMS OF STROKE. RT SIDED FACIAL DROOP COMPARISON: 06/15/2024 DLP: [address] scans at [facility] use at least one of these dose optimization techniques: automated e xposure control; mA and/or kV adjustment per patient size (includes targeted exams where dose is matc hed to clinical indication); or iterative reconstruction. FINDINGS: No evidence of intracranial hemorrhage or mass effect. Ventricular system and basal cisterns are tapia nt. Mild to moderate small vessel changes with mild parenchymal volume loss. Chronic LEFT MCA territ ory infarct with encephalomalacia. Chronic wedge-shaped RIGHT cerebellar infarct. Vascular calcificat ion. Paranasal sinuses and mastoid air cells are well aerated. CT/CT head thrombolytic [id number] IMPRESSION: 1. No evidence of intracranial hemorrhage or mass effect. 2. Chronic LEFT MCA territory infarct appears unchanged. 3. Chronic wedge-shaped RIGHT cerebellar infarct. 4. No acute intracranial findings. Notified Joe Lofton DO at 10/26/2024 8:29 AM.
--- NOTE | 2024-10-26 08:22 | CT_ITS ---
WS: [id number] CTA HEAD AND NECK TECHNIQUE: Contrast enhanced CTA of the head and neck with coronal and sagittal reformatted images an d maximum intensity projection (MIP) images. NASCET criteria utilized. CLINICAL INFORMATION: acute cva COMPARISON: 06/13/2024 DLP: 440.[address] scans at [facility] use at least one of these dose optimization techniques: automated e xposure control; mA and/or kV adjustment per patient size (includes targeted exams where dose is matc hed to clinical indication); or iterative reconstruction. FINDINGS: RIGHT: RIGHT common carotid artery is patent. Less than 50% RIGHT ICA stenosis. Moderate atheromatous plaque. RIGHT right ICA is patent to the skull base. LEFT: LEFT common carotid artery is patent. Less than 50% LEFT ICA stenosis. Moderate atheromatous pl aque. LEFT ICA is patent to the skull base. INTRACRANIAL CTA: LEFT dominant vertebral artery. Smaller but patent RIGHT vertebral artery. Both vertebral arteries ar e patent to the basilar junction. Persistent RIGHT FIREBREAK CUTTER. Patent LEFT posterior communicating art mishel. Normal vascularity to the FIREBREAK CUTTER territory bilaterally. Both ICAs are patent at the skull base. Moderate cavernous carotid calcification. Small RIGHT A1 segm ent. Normal vascularity to the PURA territory. Normal vascularity to the RIGHT MCA territory. Chronic infarct in the LEFT MCA territory with chronic decreased flow in the LEFT posterior MCA imani tory. New areas of decreased vascularity involving the LEFT insula branches and cortical branches inv olving the LEFT anterior MCA territory. Decreased flow in the LEFT frontal parietal cortex compared t o the prior examination. Some of this may be due to contrast timing. Slight hazy groundglass opacities in the lung apices with slight interstitial edema. Mastoid air cell s are well aerated. Retention cyst RIGHT maxillary sinus. Normal posterior nasopharynx. Mild spondyli tic changes cervical spine.. CT/CT angio headneck* [id number] IMPRESSION: 1. Chronic LEFT MCA territory infarct with decreased vascularity similar to pr evious. 2. Decreased vascularity in the anterior LEFT MCA territory involving the insu la and frontal parietal cortex appears new from previous. Some this may be due to early or contrast timing and technique. Suspected filling defect in a LEFT i nsula/operculum branch may be due to new embolus or vasospasm. 3. No other significant changes compared to previous. No significant cervical ICA stenosis. Moderate atheromatous plaque in both carotid bulbs. 4. Both vertebral arteries are patent to the basilar junction. 5. Persistent RIGHT FIREBREAK CUTTER. 6. Chronic wedge-shaped RIGHT cerebellar infarct. Notified Joe Lofton DO at 10/26/2024 8:55am.
[2024-10-26] MEDS: iohexol 350 mg/mL 500 mL Btl (per mL) IV (08:31)
--- NOTE | 2024-10-26 08:32 | ECG_ITS ---
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 Measurements Intervals [place] Rate: 97 P: 0 AK: 0 QRS: 49 QRSD: 98 T: -73 QT: 343 QTc: 436 Interpretive Statements ATRIAL FLUTTER SEPTAL MYOCARDIAL INFARCTION , PROBABLY OLD [40+ ms Q WAVE IN V1/V2] MODERATE T-WAVE ABNORMALITY, CONSIDER ANTEROLATERAL ISCHEMIA [-0.1+ mV T-WAVE IN V3-V6] Compared to ECG 06/12/2024 16:21:49 Myocardial infarct finding now present T-wave abnormality now present Atrial-paced complex(es) or rhythm no longer present Left ventricular hypertrophy no longer present ST (T wave) deviation no longer present Electronically Signed On 10-26-2024 12:21:24 HOSPITALITY COORDINATOR by Bo Drummond M.D. [email or web address]
--- NOTE | 2024-10-26 08:42 | XRR_ITS ---
PROCEDURE INFORMATION: Exam: XR Chest Exam date and time: 10/26/2024 9:04 AM Age: 78 years old Clinical indication: Cough and dyspnea; Additional info: Dyspnea/cough TECHNIQUE: Imaging protocol: Radiologic exam of the chest. Views: 1 view. COMPARISON: CR XR chest 1V portable [id number] 06/12/2024 4:01 PM FINDINGS: Tubes, catheters and devices: Dual lead pacemaker is seen on the left. Lungs: There may be minimal central vascular congestion. No focal consolidation is appreciated. Pleural spaces: Unremarkable. No pleural effusion. No pneumothorax. Heart/Mediastinum: The heart is enlarged. There is calcified plaque involving the aorta. Bones/joints: Unremarkable. XR/XR chest 1V portable [id number] IMPRESSION: 1. Cardiomegaly with possible mild vascular congestion.
[2024-10-26 08:44] LABS: ABG PCO2 46.4 mmHg (35-45); ABG PH Result 7.27 (7.35-7.45); Arterial Blood Gas Hematocrit 38.6 % (37-47); Base Excess ABG -5.6 mmol/L (-2.0-2.0); Blood Gas Allen Test Pos; Blood Gas Operator Identificat MONRO; Blood Gas Sample Site Radial, left; Blood Gas Sample Type Arterial; Carboxyhemoglobin 0.8 %THgb (0.4-20.1); Fractionated Inspired Oxygen 0.4 %; HCO3 ABG 21.3 mmol/L (22-26); HGB O2 Sat 94.4 % (95-100); Ionized Calcium Level - ABG 1.3 mmol/L (1.1-1.4); Methemoglobin 0.2 % (0.4-1.5); Oxygen Device NC; Oxygen Saturation ABG 95.4; PO2 ABG 83.6 mmHg (80.0-100.0); Potassium Level - ABG 3.9 mmol/L (3.5-5.0); Total Hemoglobin 12.6 g/dL (12-16)
--- NOTE | 2024-10-26 08:51 | PC.PHAR ---
patient is from [facility] [place]
--- NOTE | 2024-10-26 08:58 | ED_ITS ---
HPI - Neuro Symptoms/Deficit 2 General: Chief Complaint: Neuro Symptoms/Deficit Stated Complaint: stroke alert Time Seen by Provider: 10/26/24 08:21 History of Present Illness: 78-year-old female brought in from [facility] as a stroke alert. Initial report of the last known well was 725 during med Pass. They went back to check on evidently she was poorly responsive. On arrival here she does open her eyes to verbal stimuli she previously had as a stroke she is on Xarelto. After CT and CTA were done when I reexamined the patient she was back at her baseline. One of our chaplains's friends of hers and then visited with her yesterday and reported to me that she was similar to what he had seen yesterday when he visited with her. On repeat exam she was able to follow commands. Initial stroke score 19 however patient is poorly responsive repeat stroke score 4 all of those points however are baseline from her previous strokes. Patient hypoxic on arrival Related Data Home Medications Medication Instructions Recorded Confirmed pantoprazole 40 mg tablet,delayed 40 mg PO QAM 03/14/24 10/26/24 release bumetanide 1 mg tablet 1 mg PO DAILY PRN Edema 06/12/24 10/26/24 aluminum-mag hydroxide-simethicone 10 ml PO Q4H PRN Constipation 10/26/24 10/26/24 200 mg-200 mg-20 mg/5 mL oral susp atorvastatin 40 mg tablet 40 mg PO DAILY 10/26/24 10/26/24 docusate sodium 100 mg capsule 100 mg PO BID 10/26/24 10/26/24 levothyroxine 125 mcg tablet 125 mcg PO DAILY 10/26/24 10/26/24 lisinopril 20 mg tablet 20 mg PO DAILY 10/26/24 10/26/24 metoprolol tartrate 50 mg tablet 50 mg PO BID 10/26/24 10/26/24 miconazole nitrate 200 mg-2 % (9 1 applic vaginal TID 10/26/24 10/26/24 gram) vaginal kit (Miconazole-3) rivaroxaban 20 mg tablet (Xarelto) 20 mg PO DAILY 10/26/24 10/26/24 venlafaxine 150 mg 150 mg PO QPM 10/26/24 10/26/24 capsule,extended release 24 hr zonisamide 100 mg capsule 200 mg PO QPM 10/26/24 10/26/24 zonisamide 100 mg capsule 300 mg PO DAILY 10/26/24 10/26/24 Previous Rx's Medication Instructions Recorded BIPAP MACHINE #1 ea 12/05/19 BIPAP MASK #1 ea 12/05/19 BIPAP SUPPLIES #1 ea 12/05/19 blood-glucose meter (Easy Plus II #1 ea 05/23/20 Blood Glucose Meter) blood sugar diagnostic (Easy Plus #50 ea 04/15/21 II Test strips) aspirin 81 mg tablet,delayed 81 mg PO DAILY@0800 #60 tabs 03/14/24 release (Adult Low Dose Aspirin) Allergies Allergy/AdvReac Type Severity Reaction Status Date / Time Penicillins Allergy Unknown Unknown Verified 06/12/24 16:12 tetanus and diphtheria Allergy Unknown Verified 06/12/24 16:12 toxoids morphine AdvReac Intermediate ADR-Confusi Unverified 06/13/24 21:15 on penicillin G procaine AdvReac unknown Verified 06/12/24 16:12 Review of Systems 2 General: Reports: ROS unobtainable due to medical condition PFSH ED 2 PFSH: Medical History (Updated 10/26/24 @ 16:30 by Joe Lofton DO) CVA (cerebral vascular accident) UTI (urinary tract infection) Hypotension Aphasia Multiple falls Altered mental status Acute cystitis Hypersomnia TIA (transient ischemic attack) Recurrent UTI Medication noncompliance due to cognitive impairment Need for assistance with personal care Need for assistance due to reduced mobility Mild cognitive impairment with memory loss Oxygen dependent ANGIE (acute kidney injury) Hypertension Transient cerebral ischemia Chronic migraine without aura, intractable, with status migrainosus GERD (gastroesophageal reflux disease) 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) Dementia Obstructive sleep apnea Sleep apnea Type 2 diabetes mellitus Tachy-martin syndrome Non-insulin dependent diabetes mellitus -A1c (12/2019): 8.3 -Accucheks, ISS, hypoglycemia precautions -consistent carb diet as tolerated -takes metformin at home, can resume on d/c Drug-induced bradycardia Digoxin was discontinued along beta-alexandrea Atrial flutter Diastolic heart failure Generalized epilepsy CHF (congestive heart failure) Atrial fibrillation Severe obstructive sleep apnea Hypothyroidism Depressed Atrial dysrhythmia Diabetes 1.5, managed as type 2 Sleep apnea in adult Stroke due to embolism of left middle cerebral artery -prior hx of L MCA CVA in 05/2019; did not receive tPA -has been f/u with Dr. Randall -attributed to atrial fibrillation -on ASA, statin, AC with Eliquis -has residual cognitive impairment Seizure Heart failure Paroxysmal A-fib Surgical History Status post cardiac pacemaker procedure No pertinent past surgical history Family History Sister Diabetes Father Heart disease Mother Heart disease Social History Smoking and tobacco/nicotine status: never used tobacco/nicotine Alcohol intake: never Substance/Drug Use: never NIH stroke score 2 NIHSS: Level Of Consciousness - 1a: 3 Level Of Consciousness Questions - 1b: Neither Correct Level Of Consciousness Commands - 1c: One Correct Best Gaze - 2: Normal Visual Pelaez - 3: No Visual Loss Facial Palsy - 4: N ormal Motor Arm Right - 5: No Drift Motor Arm Left - 5: No Drift Motor Leg Right - 6: No Effort Against [place] Motor Leg Left - 6: No Effort Against [place] Limb Ataxia - 7: Absent Sensory - 8: Mild To Moderate Loss (Decreased response to right-sided sharp stimuli) Best Language - 9: Severe Aphasia Dysarthia - 10: Severe Dysarthia Extinction And Inattention - 11: 2 Score: Total Score: 19 Physical Exam 2 Const: GENERAL APPEARANCE: cooperative ORIENTATION/CONSCIOUSNESS: Yes awake HENMT: COMMON NORMALS: normocephalic, atraumatic and hearing grossly normal bilaterally HEAD & SCALP: normocephalic and atraumatic Resp: COMMON NORMALS: normal respiratory effort, No retractions, No use of accessory muscles and clear to auscultation bilaterally AUSCULTATION: clear to auscultation bilaterally Cardio: COMMON NORMALS: regular rate, regular rhythm and No murmurs present (Cardio) RATE: regular rate RHYTHM: regular rhythm GI: COMMON NORMALS: Soft to palpation and No hepatosplenomegaly present A USCULTATION: Yes normoactive bowel sounds PALPATION: Yes Soft to palpation, No Tenderness to palpation present (GI), No Guarding due to palpation present (GI) and Yes No hepatosplenomegaly present Extremity: COMMON NORMALS: normal to inspection, capillary refill normal, no clubbing, cyanosis or edema, no calf tenderness and no pedal edema Skin: COMMON NORMALS: no rashes or lesions noted GENERAL SKIN EXAM: no rashes or lesions noted Course 2 Vital Signs: Vital signs: Vital Signs Temperature 98.3 F 10/26/24 13:40 Pulse Rate 117 H 10/26/24 14:55 Respiratory Rate 18 10/26/24 13:41 Blood Pressure 156/101 10/26/24 14:30 Pulse Oximetry 95 10/26/24 14:55 Oxygen Delivery Me thod Nasal Cannula 10/26/24 14:55 Oxygen Flow Rate 4 10/26/24 14:55 MDM - Neuro Symptoms/Deficit Medical Decision Making Patient appears to have a new stroke on the CTA there may be an embolism but however it is too far up in the vascular system to be retrievable according to neuroradiology. She is on anticoagulants she is not a candidate for TNKase. Additionally she has a cystitis. Her lactate is elevated but no leukocytosis. She has a history of seizures. There is no report of seizure activity however while we are waiting for a room she did have a witnessed seizure she was given loading dose of Keppra as well as Ativan. Will make her an ICU admission discussed with hospitalist updated him after the seizure had occurred. Orders written Medical Records I reviewed the patient's medical records. Lab Data I reviewed the patient's lab results. 10/26/24 08:00 10/26/24 09:[address] 10/26/24 08:21 IMPRESSION: 1. No evidence of intracranial hemorrhage or mass effect. 2. Chronic LEFT MCA territory infarct appears unchanged. 3. Chronic wedge-shaped RIGHT cerebellar infarct. 4. No acute intracranial findings. Notified Joe Lofton DO at 10/26/2024 8:29 AM. Head/Neck CTA 10/26/24 08:22 IMPRESSION: 1. Chronic LEFT MCA territory infarct with decreased vascularity similar to previous. 2. Decreased vascularity in the anterior LEFT MCA territory involving the insula and frontal parietal cortex appears new from previous. Some this may be due to early or contrast timing and technique. Suspected filling defect in a LEFT insula/operculum branch may be due to new embolus or vasospasm. 3. No other significant changes compared to previous. No significant cervical ICA stenosis. Moderate atheromatous plaque in both carotid bulbs. 4. Both vertebral arteries are patent to the basilar junction. 5. Persistent RIGHT WARPMAN. 6. Chronic wedge-shaped RIGHT cerebellar infarct. Notified Joe Lofton DO at 10/26/2024 8:55am. Chest X-Ray 10/26/24 08:42 IMPRESSION: 1. Cardiomegaly with possible mild vascular congestion. Laboratory Results WBC 6.40 10^3/uL (3.29-11.43) 10/26/24 08:00 RBC 4.60 10^6/uL (3.85-5.65) 10/26/24 08:00 Hgb 13.30 g/dL (11.27-16.99) 10/26/24 08:00 Hct 45.3 % (36-47) 10/26/24 08:00 MCV 98.5 fl (85-98) H 10/26/24 08:00 MCH 28.9 pg (27-33) 10/26/24 08:00 MCHC 29.4 g/dL (30-55) L 10/26/24 08:00 RDW 13.7 % (12.1-15.1) 10/26/24 08:00 Plt Count 160 10^3/cmm (157-399) 10/26/24 08:00 MPV 12.4 fL (7.4-10.4) H 10/26/24 08:00 Neut % (Auto) 61.2 % 10/26/24 08:00 Lymph % (Auto) 28.3 % 10/26/24 08:00 [place] % (Auto) 8.3 % 10/26/24 08:00 Eos % (Auto) 1.4 % 10/26/24 08:00 Baso % (Auto) 0.5 % 10/26/24 08:00 Neut # (Auto) 3.92 10^3/uL (1.8-7.7) 10/26/24 08:00 Lymph # (Auto) 1.8 10^3/uL (0.8-4.8) 10/26/24 08:00 [place] # (Auto) 0.5 10^3/uL (0.2-0.9) 10/26/24 08:00 Eos # (Auto) 0.1 10^3/uL (0.0-0.8) 10/26/24 08:00 Baso # (Auto) 0.0 10^3/uL (0.0-0.1) 10/26/24 08:00 Nucleated RBC % (auto) 0 % 10/26/24 08:00 Nucleated RBCs # 0.0 /100WBC 10/26/24 08:00 PT 15.20 SECONDS (12.1-14.9) H 10/26/24 08:00 INR 1.12 (0.8-1.2) 10/26/24 08:00 APTT 29.5 SECONDS (23.9-36.7) 10/26/24 08:00 Specimen Type Arterial 10/26/24 08:32 Sample Site Radial, left 10/26/24 08:32 ABG pH 7.27 (7.35-7.45) L 10/26/24 08:32 ABG pCO2 46.4 mmHg (35-45) H 10/26/24 08:32 ABG pO2 83.6 mmHg (80.0-100.0) 10/26/24 08:32 ABG HCO3 21.3 mmol/L (22-26) L 10/26/24 08:32 ABG O2 Saturation 95.4 10/26/24 08:32 ABG Base Excess -5.6 mmol/L (-2.0-2.0) L 10/26/24 08:32 Bk Test Pos 10/26/24 08:32 A-a O2 Gradient Not Reportable 10/26/24 08:32 Hematocrit 38.6 % (37-47) 10/26/24 08:32 Hgb O2 Saturation 94.4 % (95-100) L 10/26/24 08:32 Carboxyhemoglobin 0.8 %THgb (0.4-20.1) 10/26/24 08:32 Methemoglobin 0.2 % (0.4-1.5) L 10/26/24 08:32 Total Hemoglobin 12.6 g/dL (12-16) 10/26/24 08:32 Sodium 139.0 mmol/L (131-143) 10/26/24 08:32 Potassium 3.9 mmol/L (3.5-5.0) 10/26/24 08:32 Glucose 198.0 mg/dL (70-115) H 10/26/24 08:32 Ionized Calcium 1.3 mmol/L (1.1-1.4) 10/26/24 08:32 O2 Delivery Device Nc 10/26/24 08:32 O2 Liters/Min 4.0 % 10/26/24 08:32 FiO2 0.4 % 10/26/24 08:32 Emergency Room Technician ID Alonso 10/26/24 08:32 Sodium 141 mmol/L (136-145) 10/26/24 09:01 Potassium 4.3 mmol/L (3.5-5.1) 10/26/24 09:01 Chloride 108 mmol/L (98-107) H 10/26/24 09:01 Carbon Dioxide 22 mmol/L (22-29) 10/26/24 09:01 Anion Gap 15.3 (5-19) 10/26/24 09:01 BUN 22 mg/dL (8-23) 10/26/24 09:01 Creatinine 0.8 mg/dL (0.5-0.9) 10/26/24 09:01 GFR Calculation Not Reportable 10/26/24 09:01 Glucose 201 mg/dL (65-115) H 10/26/24 09:01 POC Glucose 179 mg/dL (70-110) H 10/26/24 08:36 Calculated Osmolality 301 mOsm/kg (285-295) H 10/26/24 09:01 Lactic Acid 3.0 mmol/L (0.5-2.2) H 10/26/24 08:00 Lactic Acid (Sepsis) 1.1 mmol/L (0.5-2.2) 10/26/24 11:31 Calcium 9.7 mg/dL (8.5-10.5) 10/26/24 09:01 Total Bilirubin 0.2 mg/dL (0.15-1.2) 10/26/24 09:01 AST 21 U/L (0-32) 10/26/24 09:01 ALT 25 U/L (0-33) 10/26/24 09:01 Alkaline Phosphatase 180 U/L (35-105) H 10/26/24 09:01 Creatine Kinase 14 U/L (26-192) L 10/26/24 09:01 Troponin T Baseline 23 ng/L (0-10) H 10/26/24 09:01 Troponin T 120 Minute 22.07 ng/L (0-10) H 10/26/24 11:31 Delta Troponin T -0.93 ABS# (0-10) L 10/26/24 11:31 NT-Pro-B Natriuret Pep 3362 pg/mL (0-450) H 10/26/24 09:01 Total Protein 6.0 g/dL (6.6-8.7) L 10/26/24 09:01 Albumin 3.6 g/dL (3.5-5.2) 10/26/24 09:01 Globulin 2.4 g/dL (1.3-4.6) 10/26/24 09:01 Lipase 75 U/L (13-60) H 10/26/24 09:01 TSH 0.24 uIU/mL (0.27-4.20) L 10/26/24 11:31 Urine Color Yellow (Yellow) 10/26/24 08:45 Urine Appearance Clear (CLEAR) 10/26/24 08:45 Urine pH 6.0 (5-7) 10/26/24 08:45 Ur Specific Bur[place]on 1.046 (1.005-1.030) H 10/26/24 08:45 Urine Protein 2+ (Negative) A 10/26/24 08:45 Urine Glucose (UA) Negative (Normal) 10/26/24 08:45 Urine Ketones Negative (Negative) 10/26/24 08:45 Urine Blood Negative (Negative) 10/26/24 08:45 Urine Nitrate Positive (Negative) A 10/26/24 08:45 Urine Bilirubin Negative (Negative) 10/26/24 08:45 Urine Urobilinogen 1.0 mg/dL (Negative) 10/26/24 08:45 Ur Leukocyte Esterase Negative (Negative) 10/26/24 08:45 Urine RBC 0-2 /hpf (0-2) 10/26/24 08:45 Urine WBC 21-50 /hpf (0-5) H 10/26/24 08:45 Ur Squamous Epith Cells 0-5 /hpf (0-5) 10/26/24 08:45 Amorphous Sediment Not Reportable 10/26/24 08:45 Urine Bacteria 4+ /hpf (NONE) H 10/26/24 08:45 Hyaline Casts 9.91 /lpf 10/26/24 08:45 Urine Opiates Screen Negative ng/mL (Negative) 10/26/24 08:45 Ur Barbiturates Screen Negative ng/mL (Negative) 10/26/24 08:45 Ur Phencyclidine Scrn Negative ng/mL (Negative) 10/26/24 08:45 Ur Amphetamines Screen Negative ng/mL (Negative) 10/26/24 08:45 U Benzodiazepines Scrn Negative ng/mL (Negative) 10/26/24 08:45 Urine Cocaine Screen Negative ng/mL (Negative) 10/26/24 08:45 U Marijuana (THC) Screen Negative ng/mL (Negative) 10/26/24 08:45 Coronavirus (PCR) Negative (Negative) 10/26/24 08:53 Influenza A (PCR) Negative (Negative) 10/26/24 08:53 Influenza Type B (PCR) Negative (Negative) 10/26/24 08:53 RSV (PCR) Negative (Negative) 10/26/24 08:53 All radiology interpretation(s) finalized by discharge Discharge Plan Discharge Patient Disposition: Admitted As Inpatient Admit Provider: Aydin Sanchez Clinical Impression: Acute CVA (cerebrovascular accident), Generalized seizure disorder, UTI (urinary tract infection) Condition: Stable Coding Level of Care Code ED Admissions Specialist for Morgan Sanchez
[2024-10-26 09:01] LABS: Basophils % 0.5 %; Eosinophils # 0.1 10^3/uL (0.0-0.8); Eosinophils % 1.4 %; Hematocrit 45.3 % (36-47); Lymphocytes # 1.8 10^3/uL (0.8-4.8); Lymphocytes % 28.3 %; Mean Corpuscular HGB Conc 29.4 g/dL (30-55); Mean Corpuscular Hemoglobin 28.9 pg (27-33); Mean Corpuscular Volume 98.5 fl (85-98); Mean Platelet Volume 12.4 fL (7.4-10.4); Monocytes # 0.5 10^3/uL (0.2-0.9); Monocytes % 8.3 %; Neutrophils # 3.92 10^3/uL (1.8-7.7); Neutrophils % 61.2 %; Nucleated Red Blood Cells % 0 %; Platelet Count 160 10^3/cmm (157-399); Red Cell Distribution Width 13.7 % (12.1-15.1)
--- NOTE | 2024-10-26 09:01 | PC.NURSE ---
provider requested that a nurse call pts fpc and confirm last seen normal. attempted to contact @ 0901 wit no answer. spoke with nurse at 0909 and she states that at 0730 this morning pt was seen by the nurse, pt was able to sit on the side of the bed to take her medications like normal. nurse states that about 5 minutes later the patternmaker plaster told her that something was wrong and nurse went in to assess her and she was weak on one side.
[2024-10-26 09:08] LABS: Bilirubin Urine Negative (Negative); Blood Urine Negative (Negative); Glucose Urine UA Negative (Normal); Ketones Urine Negative (Negative); Leukocyte Esterase Urine Negative (Negative); Nitrate Urine Positive (Negative); Protein Urine 2+ (Negative); Urine Appearance Clear (CLEAR); Urine Color Yellow (Yellow)
[2024-10-26 09:13] LABS: Add Urine Microscopic? YES; Bacteria Urine 4+ /hpf; Hyaline Casts Urine 9.91 /lpf; RBC Urine 0-2 /hpf (0-2); Squamous Epithelial Cell Urine 0-5 /hpf (0-5); WBC Urine 21-50 /hpf (0-5)
[2024-10-26 09:15] LABS: Amphetamines Screen Urine Negative (Negative); Barbiturates Screen Urine Negative (Negative); Benzodiazepines Screen Urine Negative (Negative); Cocaine Screen Urine Negative (Negative); Opiate Screen Urine Negative (Negative); PCP Screen Urine Negative (Negative); THC Screen Urine Negative (Negative)
[2024-10-26 09:22] LABS: INR 1.12 (0.8-1.2)
[2024-10-26 09:23] LABS: Partial Thromboplastin Time 29.5 SECONDS (23.9-36.7)
[2024-10-26 09:31] LABS: Alanine Aminotransferase 25 U/L (0-33); Albumin Level 3.6 g/dL (3.5-5.2); Alkaline Phosphatase 180 U/L (35-105); Anion Gap 15.3 (5-19); Aspartate Amino Transferase 21 U/L (0-32); Blood Urea Nitrogen 22 mg/dL (8-23); Calcium 9.7 mg/dL (8.5-10.5); Carbon Dioxide 22 mmol/L (22-29); Chloride 108 mmol/L (98-107); Creatinine Clr Calc Pharmacy 65.2007; Globulin 2.4 g/dL (1.3-4.6); Glucose 201 mg/dL (65-115); Lipase 75 U/L (13-60); Osmolality Calculated 301 mOsm/kg (285-295); Potassium 4.3 mmol/L (3.5-5.1); Sodium 141 mmol/L (136-145); Total Bilirubin 0.2 mg/dL (0.15-1.2)
[2024-10-26 09:43] LABS: Add Urine Culture? Yes; Specific Gravity, Urine 1.046 (1.005-1.030); UA Slide Review UA Slide Review Perf
[2024-10-26 09:44] LABS: Covid PCR NEGATIVE (Negative); Influenza A NEGATIVE (Negative); Influenza B NEGATIVE (Negative); Respiratory Syncytial Virus Ce NEGATIVE (Negative)
[2024-10-26 10:06] LABS: Glucose Point of Care 179 mg/dL (70-110)
[2024-10-26] MEDS: meropenem 1,000 mg SDV 1000 MG IVP ×3 (10:33→21:16)
[2024-10-26 10:44] LABS: Reflex Lactate Order REFLEX LACTIC ORDERD
[2024-10-26 11:48] LABS: Troponin(5th) Baseline 23 ng/L (0-10)
[2024-10-26 11:58] LABS: Lactic Acid level (Lactate) 1.1 mmol/L (0.5-2.2)
[2024-10-26 11:59] LABS: Troponin 5 2HR 22.07 ng/L (0-10)
--- NOTE | 2024-10-26 11:59 | PC.NURSE ---
this nurse assumed pt care at 1100 from Essie CROWELL.
[2024-10-26 12:08] LABS: Troponin 5 2HR Delta -0.93 ABS# (0-10)
--- NOTE | 2024-10-26 12:11 | P.HP_ITS ---
Providers/Chief Complaint 2 Admitting Physician: Aydin Sanchez MD Primary Care Provider: STEFANI Villaseñor Chief Complaint: stroke alert History of Present Illness Gianluca Goode is a 78 year old female with past history of CVA, aflutter, residual aphasia, history of colonization with ESBL who presents to the hospital with decreased responsiveness. I did discuss case with the emergency department attending, and the nursing facility nurse. This morning, when evaluated by nursing on med Pass the patient was doing well at approximately 725. At 735 a coworker alerted the nurse the patient was not acting appropriate. She appeared drowsy, oxygen saturation was low, she had a right facial droop and right sided complete paralysis. She would not respond appropriately. They were worried she was having a stroke as she has had multiple strokes on the right side before, and arranged for acute transfer. Typically she has significant aphasia, but tolerates a soft mechanical diet, ambulates on her own, and takes care of many of her ADLs. She has not been complaining of any pain recently, had any fever, any vomiting. There has been no obvious urinary symptoms, but this could not be easily confirmed with her degree of aphasia. She typically does not wear any oxygen. In the emergency department she was requiring oxygen, and there was concern of some interstitial edema on CT. While in the emergency department, nurses noted rhythmic moving of her jaw, hands consistent with a seizure disorder. She was unresponsive at that time. She received 2 mg of Ativan IV, and 1000 mg of Keppra IV. When I evaluated her she was still not completely responsive but was spontaneously moving her left side. She had yet to move her right side. Oxygen requirement had gone up to 5 L. Review of Systems 2 General: Reports: 10 or more systems reviewed and unremarkable except in HPI and below Const: Denies: fever(s) Card: Denies: chest pain Resp: Denies: dyspnea GI: Denies: abdominal pain, nausea or vomiting Medications/Allergies Home Medications Medication Instructions Recorded Confirmed Last Taken Type BIPAP MACHINE #1 ea 12/05/19 10/26/24 Unknown Rx BIPAP MASK #1 ea 12/05/19 10/26/24 Unknown Rx BIPAP SUPPLIES #1 ea 12/05/19 10/26/24 Unknown Rx blood-glucose meter (Easy Plus II #1 ea 05/23/20 10/26/24 Unknown Rx Blood Glucose Meter) blood sugar diagnostic (Easy Plus #50 ea 04/15/21 10/26/24 Unknown Rx II Test strips) aspirin 81 mg tablet,delayed 81 mg PO DAILY@0800 #60 tabs 03/14/24 10/26/24 10/25/24 Rx release (Adult Low Dose Aspirin) pantoprazole 40 mg tablet,delayed 40 mg PO QAM 03/14/24 10/26/24 10/25/24 History release bumetanide 1 mg tablet 1 mg PO DAILY PRN Edema 06/12/24 10/26/24 10/26/24 History aluminum-mag hydroxide-simethicone 10 ml PO Q4H PRN Constipation 10/26/24 10/26/24 Unknown History 200 mg-200 mg-20 mg/5 mL oral susp atorvastatin 40 mg tablet 40 mg PO DAILY 10/26/24 10/26/24 10/25/24 History docusate sodium 100 mg capsule 100 mg PO BID 10/26/24 10/26/24 10/26/24 History levothyroxine 125 mcg tablet 125 mcg PO DAILY 10/26/24 10/26/24 10/26/24 History lisinopril 20 mg tablet 20 mg PO DAILY 10/26/24 10/26/24 Unknown History metoprolol tartrate 50 mg tablet 50 mg PO BID 10/26/24 10/26/24 Unknown History miconazole nitrate 200 mg-2 % (9 1 applic vaginal TID 10/26/24 10/26/24 10/25/24 History gram) vaginal kit (Miconazole-3) rivaroxaban 20 mg tablet (Xarelto) 20 mg PO DAILY 10/26/24 10/26/24 10/26/24 History venlafaxine 150 mg 150 mg PO QPM 10/26/24 10/26/24 10/25/24 History capsule,extended release 24 hr zonisamide 100 mg capsule 200 mg PO QPM 10/26/24 10/26/24 Unknown History zonisamide 100 mg capsule 300 mg PO DAILY 10/26/24 10/26/24 Unknown History Allergies Allergy/AdvReac Type Severity Reaction Status Date / Time Penicillins Allergy Unknown Unknown Verified 06/12/24 16:12 tetanus and diphtheria Allergy Unknown Verified 06/12/24 16:12 toxoids morphine AdvReac Intermediate ADR-Confusi Unverified 06/13/24 21:15 on penicillin G procaine AdvReac unknown Verified 06/12/24 16:12 PFSH Acute 2 PFSH: Medical History (Updated 10/26/24 @ 13:20 by Aydin Sanchez MD) CVA (cerebral vascular accident) UTI (urinary tract infection) Hypotension Aphasia Multiple falls Altered mental status Acute cystitis Hypersomnia TIA (transient ischemic attack) Recurrent UTI Medication noncompliance due to cognitive impairment Need for assistance with personal care Need for assistance due to reduced mobility Mild cognitive impairment with memory loss Oxygen dependent ANGIE (acute kidney injury) Hypertension Transient cerebral ischemia Chronic migraine without aura, intractable, with status migrainosus GERD (gastroesophageal reflux disease) 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) Dementia Obstructive sleep apnea Sleep apnea Type 2 diabetes mellitus Tachy-martin syndrome Non-insulin dependent diabetes mellitus -A1c (12/2019): 8.3 -Accucheks, ISS, hypoglycemia precautions -consistent carb diet as tolerated -takes metformin at home, can resume on d/c Drug-induced bradycardia Digoxin was discontinued along beta-alexandrea Atrial flutter Diastolic heart failure Generalized epilepsy CHF (congestive heart failure) Atrial fibrillation Severe obstructive sleep apnea Hypothyroidism Depressed Atrial dysrhythmia Diabetes 1.5, managed as type 2 Sleep apnea in adult Stroke due to embolism of left middle cerebral artery -prior hx of L MCA CVA in 05/2019; did not receive tPA -has been f/u with Dr. Randall -attributed to atrial fibrillation -on ASA, statin, AC with Eliquis -has residual cognitive impairment Seizure Heart failure Paroxysmal A-fib Surgical History Status post cardiac pacemaker procedure No pertinent past surgical history Family History Sister Diabetes Father Heart disease Mother Heart disease Social History Smoking and tobacco/nicotine status: never used tobacco/nicotine Alcohol intake: never Substance/Drug Use: never Vitals/I&O/Wt Last Vital Signs Temp 98.3 F 10/26/24 08:39 Pulse 107 H 10/26/24 10:31 Resp 19 H 10/26/24 10:31 BP 132/87 10/26/24 10:31 Pulse Ox 98 10/26/24 10:31 O2 Del Method Room Air 10/26/24 10:31 O2 Flow Rate 4 10/26/24 08:39 Weight last 48 hrs Weight 87.09 kg Physical Exam 2 Narrative: General exam is white female, no distress currently, difficulty communicating but reportedly at baseline after friend who visits her had come by HEENT: Atraumatic normocephalic. Oropharynx clear and tongue is midline Neuro: I have difficulty determining any decreased strength on either side currently. No obvious extraocular movement disturbance. No obvious drift. Certainly has aphasia. Neck is supple no lymphadenopathy thyromegaly Cardiovascular irregular irregular with slightly tachycardic rate Lungs clear no wheezing or crackles Abdomen is soft nontender positive bowel sounds. No obvious organomegaly exams deferred Extremities no sinus clubbing edema, cap refill brisk Skin no rash Urinary Catheter Management: Garcia: Cath Placed During This Visit: yes Urinary Catheter Date of Insertion: 10/26/24 Urinary Catheter Time of Insertion: 08:40 Data 10/26/24 08:00 10/26/24 09:01 Other Labs: INR 1.12 Initial ABG demonstrated pH 7.27, pCO2 46, pO2 83 on 4 L Lactic acid 3.0 and repeat 1.1 Calcium and albumin are normal LFTs are normal with exception of alk phos which is 180 Troponin 23 and repeat 22 Lipase 75 Urinalysis with 2+ protein, positive nitrates, 21-50 whites, 4+ bacteria UDS negative Coronavirus, influenza, RSV negative Chest x-ray shows cardiomegaly, some congestive changes, pacemaker Head neck CTA as noted: IMPRESSION: 1. Chronic LEFT MCA territory infarct with decreased vascularity similar to previous. 2. Decreased vascularity in the anterior LEFT MCA territory involving the insula and frontal parietal cortex appears new from previous. Some this may be due to early or contrast timing and technique. Suspected filling defect in a LEFT insula/operculum branch may be due to new embolus or vasospasm. 3. No other significant changes compared to previous. No significant cervical ICA stenosis. Moderate atheromatous plaque in both carotid bulbs. 4. Both vertebral arteries are patent to the basilar junction. 5. 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 6. Chronic wedge-shaped RIGHT cerebellar infarct. Head CT which I reviewed demonstrates chronic left MCA changes, cerebellar changes on the right and no acute findings EKG which I reviewed demonstrates atrial flutter, some ST depression V4 through 6, normal axis, septal MN likely in the past. Micro: Microbiology 10/26/24 09:01 Blood Culture - Preliminary Blood SPECIMEN COLLECTED 10/26/24 08:55 Blood Culture - Preliminary Blood SPECIMEN COLLECTED A&P Assessment and plan (1) Generalized seizure disorder: Patient with history of seizure disorder, currently on Zonegran Presentation was potentially consistent with TIA, but then with seizure and emergency department there was concern of seizure disorder with Gurmeet's paralysis following. Keppra was initiated Continue Zonegran Seizure precautions Ativan as needed ICU admission (2) CVA (cerebral vascular accident): Patient with past history of CVA, with question of TIA versus Gurmeet's paralysis. Continue aspirin, Xarelto, statin. Allow permissive hypertension by discontinuing lisinopril currently. Continue metoprolol secondary to atrial flutter. (3) Hypoxia: Likely secondary to seizure (4) Elevated troponin: Likely secondary to seizure. Will go ahead and trend troponins. No significant increase in troponin was noted. (5) Acute respiratory failure with hypoxia and hypercapnia: Likely secondary to seizure Wean oxygen as tolerated (6) UTI (urinary tract infection): Concern of UTI, initiate meropenem until this is clarified. She has past history of ESBL. Urine and blood cultures have been performed. Plan Multiple other medical problems as outlined in past medical history Full code Xarelto will suffice for DVT prophylaxis. Attestations 2 Medical Necessity Statement*: Will require greater than 2 midnight stay for evaluation of possible infection, seizure, concern of CVA/TIA Diagnoses Generalized seizure disorder G40.309 CVA (cerebral vascular accident) I63.9 Hypoxia R09.02 Elevated troponin R79.89 Acute respiratory failure with hypoxia and hypercapnia J96.01; J96.02 UTI (urinary tract infection) N39.0 Time Spent (min) 65
[2024-10-26] MEDS: LORazepam 2 mg/mL INJ 1 mL IVP (12:42)
[2024-10-26] MEDS: levETIRAcetam 1,500 MG/100 ML PREMIX 400 MG IV (12:43)
[2024-10-26 12:50] LABS: Glucose Point of Care 202 mg/dL (70-110)
--- NOTE | 2024-10-26 12:57 | PC.NURSE ---
this nurse noted pts heart rate rise to the 150s. this nurse went to check on pt and found pt to be having a seizure. this nurse asked MERVAT [place] to get Dr. Lofton. pt was turned on her side at this time. Dr. Lofton at bedside and stated he would put in orders for 2 mg Ativan and 1 g keppra. Leta CROWELL brought meds and administered them. Dr. Sanchez to bedside. pt diaphoretic and unresponsive, pt work of breathing increased. O2 titrated from 3L to 5L due to O2 dropping to 73%. O2 95% on 5L at this time. Orders to move pt transfer from med surg to icu. pt family at bedside at this time. report called to Yariel CROWELL in ICU.
--- NOTE | 2024-10-26 13:07 | ECG_ITS ---
Dynamics Expert [employer] Test Date: 2024-10-26 Pat Name: Gianluca Goode Department: Room: [facility] Gender: Female Fire Investigation Lieutenant: : 1945 Requested By: Joe Estes Order Number: [id number] Jake MD: Bo Drummond M.D. Measurements Intervals [place] Rate: 114 P: 0 IL: 0 QRS: 29 QRSD: 93 T: -77 QT: 356 QTc: 492 Interpretive Statements ATRIAL FLUTTER WITH RVR SEPTAL MYOCARDIAL INFARCTION , PROBABLY OLD [40+ ms Q WAVE IN V1/V2] MODERATE T-WAVE ABNORMALITY, CONSIDER ANTEROLATERAL ISCHEMIA [-0.1+ mV T-WAVE IN V3-V6] MODERATE T-WAVE ABNORMALITY, CONSIDER INFERIOR ISCHEMIA [-0.1+ mV T-WAVE IN II/aVF] Compared to ECG 10/26/2024 08:32:21 Myocardial infarct finding still present T-wave abnormality still present Possible ischemia still present Electronically Signed On 10-26-2024 16:09:55 HYDRAULIC SPECIALIST by Bo Drummond M.D. [id number]
[2024-10-26 13:08] LABS: Creatine Phosphokinase 14 U/L (26-192); NT Pro B Type Natriuretic Pept 3362 pg/mL (0-450)
[2024-10-26 13:08] LABS: Thyroid Stimulating Hormone 0.24 uIU/mL (0.27-4.20)
--- NOTE | 2024-10-26 13:41 | USCV_ITS ---
Gianluca Goode Age: 78 Gender: F : 1945 Exam Date: 10/26/2024 20:33 Ordering Phys: Aydin Sanchez MD Technologist: CARLY Exam Location: [facility] Indication: TIA, hx pacer BP: 156 / 101 HR: 95 Rhythm: Atrial fibrillation Technical Quality: Adequate MEASUREMENTS (Male / Female) Normal Values 2D ECHO LV Diastolic Diameter PLAX 4.6 cm 4.2 - 5.9 / 3.9 - 5.3 cm IVS Diastolic Thickness 1.6 cm 0.6 - 1.0 / 0.6 - 0.9 cm IVS Systolic Thickness 2.0 cm LVPW Diastolic Thickness 1.6 cm 0.6 - 1.0 / 0.6 - 0.9 cm LVPW Systolic Thickness 2.1 cm LVOT Diameter 1.9 cm LV Ejection Fraction 2D Teich 40.6 % LV Ejection Fraction MOD 4C 38.9 % LV Ejection Fraction MOD 2C 32.1 % LV Ejection Fraction 2C AL 33.9 % LA Diameter 4.6 cm LA Sys Volume AL 89.0 cm cubed LA Sys Volume Index AL 43.8 cm cubed/m squared Aorta at Sinotubular Diameter 3.3 cm IVC Diameter 1.4 cm M-MODE LA Ao Ratio MM 1.8 AV Cusp Separation MM 1.9 cm DOPPLER AV Peak Velocity 105.0 cm/s LVOT Peak Velocity 78.0 cm/s AV Area Cont Eq vti 2.2 cm squared AV Area Cont Eq pk 2.0 cm squared MV Peak Velocity 102.0 cm/s MV Area PHT 5.2 cm squared Mitral E to A Ratio 0.0 TV Peak Velocity 247.7 cm/s TR Peak Velocity 262.0 cm/s TR Peak Gradient 27.5 mmHg TV Peak E Velocity 48.0 cm/s PV Peak Velocity 97.0 cm/s FINDINGS Left Ventricle Diffuse hypokinesia of the left ventricle with an ejection fraction of around 35%. Mild to moderate concentric hypertrophy. Right Ventricle Possibly normal RV size and ejection fraction.catheter/pacemaker wire in the right ventricular cavity. Right Atrium Moderately increased right atrial size. . Catheter/pacemaker wire in the right atrial cavity. Left Atrium Moderately increased left atrial size. Mitral Valve Thickened mitral valve. Mild mitral valve regurgitation. Aortic Valve Mild aortic valve calcification. Mild aortic valve regurgitation. Tricuspid Valve Trace to mild tricuspid valve regurgitation. Estimated pulmonary artery peak systolic pressure 31 mmHg Pulmonic Valve Moderate pulmonary valve regurgitation. Pericardium No pericardial effusion. Aorta Normal aortic annulus size. IVC Normal inferior vena cava. CONCLUSIONS Diffuse hypokinesia of the left ventricle with an ejection fraction of around 35%. Mild to moderate concentric hypertrophy. Moderately increased right atrial size. . Catheter/pacemaker wire in the right atrial cavity. Moderately increased left atrial size. Thickened mitral valve. Mild mitral valve regurgitation. Estimated pulmonary artery peak systolic pressure 31 mmHg Mild aortic valve calcification. Mild aortic valve regurgitation. Moderate pulmonary valve regurgitation. There is no pericardial effusion. There are no intracardiac masses. Compared to the study from 03/14/2024, there is a significant drop in the LV ejection fraction from 64% to 36% Dr Micah Coleman MD [facility] (Electronically Signed) Final Date: 26 October 2024 23:36 S
--- NOTE | 2024-10-26 14:19 | PC.NURSE ---
Patient came from the ER unresponsive without any family. Patient did open up their eyes but could not follow commands during transfer to the ICU bed. Patient did move their left side but did not move their right side. Patient's sister came into the room and answered as many questions about the patient as she could.
--- NOTE | 2024-10-26 15:08 | PC.OT ---
HOLD OT EVAL PER NURSING; WILL ATTEMPT AGAIN AT LATER TIME.
--- NOTE | 2024-10-26 17:03 | PC.NURSE ---
Patient is lethargic and unable to take anything by mouth at this point safely. Dr. Sanchez was notified and he ordered to give metoprolol 5mg IVP Q6hr and to hold for systolic less than 110 or heart rate less than 60. He also ordered to start NS at 75mls/hr.
[2024-10-26] MEDS: metoprolol tartrate 1 mg/1 mL SDV 5 mL 5 MG IVP ×2 (17:20→22:55)
[2024-10-26] MEDS: sodium chloride 0.9% 1,000 ML 75 ML IV (17:23)
--- NOTE | 2024-10-26 17:57 | ECG_ITS ---
[employer] Test Date: 2024-10-26 Pat Name: Gianluca Goode Department: Room: [facility] Gender: Female Latent Fingerprint Examiner: : 1945 Requested By: Joe Estes Order Number: [id number] Jake MD: Micah Coleman M.D. Measurements Intervals [place] Rate: 116 P: 0 IL: 0 QRS: 19 QRSD: 93 T: 261 QT: 298 QTc: 416 Interpretive Statements Atrial fibrillation with rapid ventricular rate SEPTAL MYOCARDIAL INFARCTION , PROBABLY OLD [40+ ms Q WAVE IN V1/V2] MODERATE T-WAVE ABNORMALITY, CONSIDER LATERAL ISCHEMIA [-0.1+ mV T-WAVE IN I/aVL/V5/V6] MODERATE T-WAVE ABNORMALITY, CONSIDER INFERIOR ISCHEMIA [-0.1+ mV T-WAVE IN II/aVF] Compared to ECG 10/26/2024 13:07:45 No significant changes Electronically Signed On 10-28-2024 21:36:28 ANALYTICAL SCIENCES DIRECTOR by Micah Coleman M.D. [id number]
--- NOTE | 2024-10-26 18:02 | PC.SLP ---
Patient unable to participate in WARP SCOURING VAT TENDER assessment this date due to decreased alertness.
[2024-10-27] VITALS (41 sets, daily range): BP systolic 95–168; BP diastolic 71–111; PULSE 95–118; RESP 1–29; TEMP 36.4–36.7; O2SAT 89–97
[2024-10-27] MEDS: levETIRAcetam 1,000 MG/100 ML PREMIX 400 MG IV (00:18)
[2024-10-27] MEDS: metoprolol tartrate 1 mg/1 mL SDV 5 mL 5 MG IVP (04:50)
[2024-10-27 04:56] LABS: Basophils % 0.4 %; Eosinophils # 0.1 10^3/uL (0.0-0.8); Eosinophils % 1.4 %; Hematocrit 41.7 % (36-47); Lymphocytes # 1.4 10^3/uL (0.8-4.8); Lymphocytes % 25.7 %; Mean Corpuscular Hemoglobin 29.1 pg (27-33); Mean Corpuscular Volume 97.2 fl (85-98); Mean Platelet Volume 11.8 fL (7.4-10.4); Monocytes # 0.6 10^3/uL (0.2-0.9); Monocytes % 11.4 %; Neutrophils # 3.41 10^3/uL (1.8-7.7); Neutrophils % 60.9 %; Nucleated Red Blood Cells % 0 %; Platelet Count 140 10^3/cmm (157-399); Red Blood Count 4.29 10^6/uL (3.85-5.65); Red Cell Distribution Width 13.8 % (12.1-15.1)
[2024-10-27] MEDS: meropenem 1,000 mg SDV 1000 MG IVP ×3 (04:58→21:16)
[2024-10-27 05:24] LABS: Alanine Aminotransferase 20 U/L (0-33); Albumin Level 3.1 g/dL (3.5-5.2); Alkaline Phosphatase 154 U/L (35-105); Anion Gap 10.9 (5-19); Aspartate Amino Transferase 15 U/L (0-32); Blood Urea Nitrogen 14 mg/dL (8-23); Calcium 9.6 mg/dL (8.5-10.5); Carbon Dioxide 25 mmol/L (22-29); Chloride 114 mmol/L (98-107); Globulin 2.4 g/dL (1.3-4.6); Glucose 115 mg/dL (65-115); Magnesium 1.9 mg/dL (1.7-2.3); Osmolality Calculated 303 mOsm/kg (285-295); Potassium 3.9 mmol/L (3.5-5.1); Sodium 146 mmol/L (136-145); Total Bilirubin 0.3 mg/dL (0.15-1.2); Total Protein 5.5 g/dL (6.6-8.7)
--- NOTE | 2024-10-27 08:24 | P.PN_ITS ---
Subjective 2 Subjective: No further seizures through the night. Right-sided weakness has improved significantly. Aphasia persists, which is her baseline. No obvious complaints. Medications: Reviewed: Yes Vitals/I&O/Wt Last Vital Signs Temp 97.5 F L 10/27/24 05:05 Pulse 101 H 10/27/24 07:00 Resp 24 H 10/27/24 07:00 BP 118/82 10/27/24 07:00 Pulse Ox 94 10/27/24 07:00 O2 Del Method Nasal Cannula 10/26/24 18:00 O2 Flow Rate 1 10/26/24 18:00 10/26/24 10/27/24 10/27/24 22:59 06:59 14:59 Intake Total 100 / 100 100 / 200 Output Total 1000 / 1000 Balance 100 / 100 -900 / -800 Weight last 48 hrs Weight 85.275 kg Weight 85.275 kg Weight 85.5 kg Weight 87.09 kg Physical Exam 2 Narrative: General exam no distress Neuro: Aphasia noted. Otherwise moving both sides, good strength. Neck is supple no lymphadenopathy thyromegaly Cardiovascular irregular irregular with slightly tachycardic rate Lungs clear no wheezing or crackles Abdomen is soft nontender positive bowel sounds. No obvious organomegaly Extremities no sinus clubbing edema, cap refill brisk Urinary Catheter Management: Garcia: Cath Placed During This Visit: yes Reason for Continuing Indwelling Catheter: Accurate Measurement of Urinary Output in Critically Ill Patients Urinary Catheter Date of Insertion: 10/26/24 Urinary Catheter Time of Insertion: 08:40 Data 10/27/24 04:17 10/27/24 04:17 Micro: Microbiology 10/26/24 09:01 Blood Culture - Preliminary Blood SPECIMEN COLLECTED 10/26/24 08:55 Blood Culture - Preliminary Blood SPECIMEN COLLECTED A&P Assessment and plan (1) Generalized seizure disorder: Patient with history of seizure disorder, currently on Zonegran Presentation was potentially consistent with TIA, but then with seizure and emergency department there was concern of seizure disorder with Gurmeet's paralysis following. Continue Keppra and Zonegran Seizure precautions Ativan as needed Transfer out of ICU Discontinue Garcia (2) CVA (cerebral vascular accident): Patient with past history of CVA, with question of TIA versus Gurmeet's paralysis. Continue aspirin, Xarelto, statin. Continue metoprolol secondary to atrial flutter. (3) Hypoxia: Likely secondary to seizure (4) Elevated troponin: Troponin did not have any significant trend suggesting NM although on echo her EF is reduced. Reduce fluids to prevent heart failure, hopefully discontinuing later today Consider outpatient nuclear stress testing She denies any chest discomfort. (5) Acute respiratory failure with hypoxia and hypercapnia: Likely secondary to seizure Oxygen requirement has weaned significantly (6) UTI (urinary tract infection): Concern of UTI, initiate meropenem until this is clarified. She has past history of ESBL. Urine and blood cultures have been performed. Plan Multiple other medical problems as outlined in past medical history Full code [place]ue[place]to will suffice for DVT prophylaxis. Attestations 2 Medical Necessity Statement*: Needs continued hospital stay for close monitoring following seizure, evaluation by physical therapy, initiation of p.o. Keppra, weaning off oxygen. Potential discharge tomorrow. Diagnoses Generalized seizure disorder G40.309 CVA (cerebral vascular accident) I63.9 Hypoxia R09.02 Elevated troponin R79.89 Acute respiratory failure with hypoxia and hypercapnia J96.01; J96.02 UTI (urinary tract infection) N39.0 Time Spent (min) 24
[2024-10-27] MEDS: aspirin 81 mg EC Tablet PO (09:28)
[2024-10-27] MEDS: atorvastatin 40 mg Tablet 80 MG PO (09:30)
[2024-10-27] MEDS: docusate sodium 100 mg Capsule PO ×2 (09:31→17:47)
[2024-10-27] MEDS: levETIRAcetam 500 mg Tablet 750 MG PO ×2 (09:32→17:50)
[2024-10-27] MEDS: levothyroxine 112 mcg Tablet PO (09:33)
[2024-10-27] MEDS: metoprolol tartrate 50 mg Tablet PO ×2 (09:34→17:49)
[2024-10-27] MEDS: rivaroxaban 10 mg Tablet 20 MG PO (09:35)
[2024-10-27] MEDS: zonisamide 100 MG Capsule 300 MG PO (09:36)
[2024-10-27] MEDS: sodium chloride 0.9% 1,000 ML 50 ML IV (09:58)
--- NOTE | 2024-10-27 15:30 | PC.SOCIAL ---
IMM Update pg 2 of IMM Updated and reviewed w/ patients sister. Copy provided and copy dated, initialed and placed in chart.
--- NOTE | 2024-10-27 16:10 | PC.OT ---
OT evaluation withheld this date due to patient fast asleep. Nursing attempted to wake her up on two occasions without any success. Nursing stated that she had a very busy morning. She must be exhausted. To attempt on a later time or date.
[2024-10-27] MEDS: venlafaxine ER (24HR) 150 mg Capsule PO (17:48)
[2024-10-27] MEDS: zonisamide 100 MG Capsule 200 MG PO (17:49)
--- NOTE | 2024-10-27 18:26 | PC.NURSE ---
Transfer Note Patient transferred to med-surg room 262 from ICU via wheelchair. Handoff report given to MERVAT Ramirez. Patient oriented to environment and equipment. Covering service notified. Orders reviewed and will continue to monitor. Family notified of patient transfer, all questions answered at this time. All patient belongings transferred with patient & placed at bedside.
[2024-10-28] VITALS (7 sets, daily range): BP systolic 136–157; BP diastolic 81–91; PULSE 92–116; RESP 15–18; TEMP 36.4–36.8; O2SAT 90–94
[2024-10-28 03:58] LABS: Basophils % 0.6 %; Eosinophils # 0.1 10^3/uL (0.0-0.8); Eosinophils % 2.6 %; Lymphocytes # 1.1 10^3/uL (0.8-4.8); Lymphocytes % 19.9 %; Mean Corpuscular HGB Conc 30.5 g/dL (30-55); Mean Corpuscular Hemoglobin 29.1 pg (27-33); Mean Corpuscular Volume 95.3 fl (85-98); Mean Platelet Volume 12.2 fL (7.4-10.4); Monocytes # 0.5 10^3/uL (0.2-0.9); Monocytes % 10.1 %; Neutrophils # 3.56 10^3/uL (1.8-7.7); Neutrophils % 66.8 %; Nucleated Red Blood Cells % 0 %; Platelet Count 120 10^3/cmm (157-399); Red Cell Distribution Width 13.9 % (12.1-15.1); White Blood Count 5.33 10^3/uL (3.29-11.43)
[2024-10-28 04:13] LABS: Alanine Aminotransferase 17 U/L (0-33); Albumin Level 3.1 g/dL (3.5-5.2); Alkaline Phosphatase 147 U/L (35-105); Anion Gap 8.9 (5-19); Aspartate Amino Transferase 12 U/L (0-32); Blood Urea Nitrogen 11 mg/dL (8-23); Calcium 9.7 mg/dL (8.5-10.5); Carbon Dioxide 25 mmol/L (22-29); Chloride 112 mmol/L (98-107); Globulin 2.4 g/dL (1.3-4.6); Glucose 122 mg/dL (65-115); Magnesium 1.9 mg/dL (1.7-2.3); Osmolality Calculated 295 mOsm/kg (285-295); Potassium 3.9 mmol/L (3.5-5.1); Sodium 142 mmol/L (136-145); Total Bilirubin 0.3 mg/dL (0.15-1.2); Total Protein 5.5 g/dL (6.6-8.7)
[2024-10-28] MEDS: pantoprazole DR 40 mg Tablet PO (05:20)
[2024-10-28] MEDS: meropenem 1,000 mg SDV 1000 MG IVP ×3 (05:20→21:09)
[2024-10-28] MEDS: levETIRAcetam 500 mg Tablet 750 MG PO ×2 (09:46→18:56)
[2024-10-28] MEDS: aspirin 81 mg EC Tablet PO (09:47)
[2024-10-28] MEDS: zonisamide 100 MG Capsule 300 MG PO (09:47)
[2024-10-28] MEDS: atorvastatin 40 mg Tablet 80 MG PO (09:47)
[2024-10-28] MEDS: levothyroxine 112 mcg Tablet PO (09:47)
[2024-10-28] MEDS: metoprolol tartrate 50 mg Tablet PO ×2 (09:47→18:57)
[2024-10-28] MEDS: rivaroxaban 10 mg Tablet 20 MG PO (09:47)
[2024-10-28] MEDS: docusate sodium 100 mg Capsule PO ×2 (09:47→18:56)
--- NOTE | 2024-10-28 14:32 | P.PN_ITS ---
Subjective 2 Subjective: Seen this morning. No acute events overnight. Urine culture positive for 2 different colonies, sensitivities are pending. ? Neurologically at baseline. Vitals/I&O/Wt Last Vital Signs Temp 98.3 F 10/28/24 12:00 Pulse 98 10/28/24 12:00 Resp 17 10/28/24 12:00 BP 136/88 10/28/24 12:00 Pulse Ox 92 10/28/24 12:00 O2 Del Method Room Air 10/28/24 12:00 O2 Flow Rate 1 10/27/24 10:37 10/27/24 10/28/24 10/28/24 22:59 06:59 14:59 Intake Total 240 / 240 Output Total 950 / 950 Balance -950 / -205.833 240 / 240 Weight last 48 hrs Weight 83.149 kg Weight 85.275 kg Weight 85.275 kg Physical Exam 2 Narrative: General exam no distress Neuro: Aphasia noted. Otherwise moving both sides, good strength. Neck is supple no lymphadenopathy thyromegaly Cardiovascular irregular irregular with slightly tachycardic rate Lungs clear no wheezing or crackles Abdomen is soft nontender positive bowel sounds. No obvious organomegaly Extremities no sinus clubbing edema, cap refill brisk Urinary Catheter Management: Garcia: Cath Placed During This Visit: yes Reason for Continuing Indwelling Catheter: Accurate Measurement of Urinary Output in Critically Ill Patients Urinary Catheter Date of Insertion: 10/26/24 Urinary Catheter Time of Insertion: 08:40 Data 10/28/24 02:44 10/28/24 02:44 Micro: Microbiology 10/26/24 08:45 Urine Culture - Preliminary Urine,Clean Catch Gram Negative Rods 10/26/24 09:01 Blood Culture - Preliminary Blood NEGATIVE TO DATE 10/26/24 08:55 Blood Culture - Preliminary Blood NEGATIVE TO DATE A&P Assessment and plan (1) Generalized seizure disorder: Patient with history of seizure disorder, currently on Zonegran Presentation was potentially consistent with TIA, but then with seizure and emergency department there was concern of seizure disorder with Gurmeet's paralysis following. Continue Keppra and Zonegran Seizure precautions Ativan as needed Transfer out of ICU Discontinue Garcia (2) CVA (cerebral vascular accident): Patient with past history of CVA, with question of TIA versus Gurmeet's paralysis. Continue aspirin, Xarelto, statin. Continue metoprolol secondary to atrial flutter. (3) Hypoxia: Likely secondary to seizure (4) Elevated troponin: Troponin did not have any significant trend suggesting MD although on echo her EF is reduced. Reduce fluids to prevent heart failure, hopefully discontinuing later today Consider outpatient nuclear stress testing She denies any chest discomfort. (5) Acute respiratory failure with hypoxia and hypercapnia: Likely secondary to seizure Oxygen requirement has weaned significantly (6) UTI (urinary tract infection): Concern of UTI, initiate meropenem until this is clarified. She has past history of ESBL. Urine and blood cultures have been performed. Plan Multiple other medical problems as outlined in past medical history Full code Xarelto will suffice for DVT prophylaxis. 10/28/2024 -Awaiting urine culture. ? She does have a past history of ESBL. ? Blood cultures negative to date ? Awaiting urine culture to finalize. ? Potentially discharge back to nursing facility in next 24 to 48 hours. For now continue meropenem. Attestations 2 Medical Necessity Statement*: Needs continued hospital stay for waiting for the urine culture to be finalized. Sensitivities are pending. Potential discharge tomorrow. Diagnoses Generalized seizure disorder G40.309 CVA (cerebral vascular accident) I63.9 Hypoxia R09.02 Elevated troponin R79.89 Acute respiratory failure with hypoxia and hypercapnia J96.01; J96.02 UTI (urinary tract infection) N39.0
[2024-10-28] MEDS: zonisamide 100 MG Capsule 200 MG PO (18:56)
[2024-10-28] MEDS: venlafaxine ER (24HR) 150 mg Capsule PO (18:57)
[2024-10-29] VITALS: BP 148/89; PULSE 99; RESP 15; TEMP 36.8; O2SAT 91
[2024-10-29 04:00] VITALS: BP 143/78; PULSE 97; RESP 15; TEMP 36.4; O2SAT 90
[2024-10-29] MEDS: meropenem 1,000 mg SDV 1000 MG IVP (05:01)
[2024-10-29] MEDS: pantoprazole DR 40 mg Tablet PO (05:01)
[2024-10-29 05:31] VITALS: PULSE 116
[2024-10-29 08:00] VITALS: BP 155/89; PULSE 99; RESP 16; TEMP 36.4; O2SAT 91
--- NOTE | 2024-10-29 08:17 | PC.NURSE ---
This nurse was assisting the pt to the restroom. She walked with the walker without incident. I never left the room. Assisted pt back to bed with walker. As I was moving the walker out of the walk to assist the pt with getting into bed, she became dizzy, reached for the IV pole next to me and and got us both tangled. I kicked the walker out of the way and assisted the pt to the floor. At which time she obtained a skin tear to her left forearm. She remained dizzy for approximately 3 minutes. Once she was not feeling dizzy, I assisted her to the side of the bed and then helped to a lying position. Bed alarm turned back on, call light in reach, and table within reach. Vital signs obtained 98.2, 18, 104, 164/92, 97%. A 2x2 and coban applied to skin tear. Charge nurse notified, physician notified, and family notified.
[2024-10-29] MEDS: zonisamide 100 MG Capsule 300 MG PO (08:46)
[2024-10-29] MEDS: aspirin 81 mg EC Tablet PO (08:47)
[2024-10-29] MEDS: levothyroxine 112 mcg Tablet PO (08:47)
[2024-10-29] MEDS: levETIRAcetam 500 mg Tablet 750 MG PO (08:47)
[2024-10-29] MEDS: atorvastatin 40 mg Tablet 80 MG PO (08:47)
[2024-10-29] MEDS: docusate sodium 100 mg Capsule PO (08:47)
[2024-10-29] MEDS: rivaroxaban 10 mg Tablet 20 MG PO (08:47)
[2024-10-29] MEDS: metoprolol tartrate 50 mg Tablet PO (08:47)
--- NOTE | 2024-10-29 11:08 | PM.DCS ---
Discharge Providers Date of Admission: 10/26/24 12:41 Date of Discharge: October 29, 2024 Attending Provider at Admission: Aydin Sanchez MD Attending Provider at Discharge: Dipika Jones MD Primary Care Provider: STEFANI Villaseñor Diagnoses at Discharge Discharge Diagnosis (1) Generalized seizure disorder: Status: Acute (2) CVA (cerebral vascular accident): Status: Acute (3) Hypoxia: Status: Resolved (4) Elevated troponin: Status: Resolved (5) Acute respiratory failure with hypoxia and hypercapnia: Status: Resolved (6) UTI (urinary tract infection): Status: Resolved Reason for Visit Reason for Visit: stroke alert Hospital Course Hospital Course Admitted for potential TIA however had a seizure and Gurmeet's paralysis. Was initially admitted to ICU. Does have a history of strokes in the past. Was also treated for UTI during hospitalization. She was discharged to nursing facility once urine culture finalized. She remains seizure-free after admission Physical Exam Narrative: General exam no distress Neuro: Aphasia noted. Otherwise moving both sides, good strength. Neck is supple no lymphadenopathy thyromegaly Cardiovascular irregular irregular Lungs clear no wheezing or crackles Abdomen is soft nontender positive bowel sounds. No obvious organomegaly Extremities no sinus clubbing edema, cap refill brisk Urinary Catheter Management: Garcia: Cath Placed During This Visit: yes Reason for Continuing Indwelling Catheter: Accurate Measurement of Urinary Output in Critically Ill Patients Urinary Catheter Date of Insertion: 10/26/24 Urinary Catheter Time of Insertion: 08:40 Discharge Data Studies Completed and Pending Completed Studies During Hospitalization Category Date Time Status CT angio headneck* [id number] Stat Cat Scan 10/26/24 08:[address] head thrombolytic [id number] Stat Cat Scan 10/26/24 08:21 Completed XR chest 1V portable [id number] Stat Exams 10/26/24 08:42 Completed CV. echo complete* [id number] Routine Ultrasound 10/26/24 13:41 Completed Pending at discharge Category Date Time Status Blood Culture Stat Lab 10/26/24 09:01 Results COVID [SARS Covid-2 Antigen] Routine Lab 10/28/24 05:37 Ordered Radiology Impressions Head CT 10/26/24 08:21 IMPRESSION: 1. No evidence of intracranial hemorrhage or mass effect. 2. Chronic LEFT MCA territory infarct appears unchanged. 3. Chronic wedge-shaped RIGHT cerebellar infarct. 4. No acute intracranial findings. Notified Joe L Horstman, DO at 10/26/2024 8:29 AM. Head/Neck CTA 10/26/24 08:22 IMPRESSION: 1. Chronic LEFT MCA territory infarct with decreased vascularity similar to previous. 2. Decreased vascularity in the anterior LEFT MCA territory involving the insula and frontal parietal cortex appears new from previous. Some this may be due to early or contrast timing and technique. Suspected filling defect in a LEFT insula/operculum branch may be due to new embolus or vasospasm. 3. No other significant changes compared to previous. No significant cervical ICA stenosis. Moderate atheromatous plaque in both carotid bulbs. 4. Both vertebral arteries are patent to the basilar junction. 5. 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 6. Chronic wedge-shaped RIGHT cerebellar infarct. Notified Joe Lofton DO at 10/26/2024 8:55am. Chest X-Ray 10/26/24 08:42 IMPRESSION: 1. Cardiomegaly with possible mild vascular congestion. Laboratory Results WBC 5.33 10^3/uL (3.29-11.43) 10/28/24 02:44 RBC 4.30 10^6/uL (3.85-5.65) 10/28/24 02:44 Hgb 12.50 g/dL (11.27-16.99) 10/28/24 02:44 Hct 41.0 % (36-47) 10/28/24 02:44 MCV 95.3 fl (85-98) 10/28/24 02:44 MCH 29.1 pg (27-33) 10/28/24 02:44 MCHC 30.5 g/dL (30-55) 10/28/24 02:44 RDW 13.9 % (12.1-15.1) 10/28/24 02:44 Plt Count 120 10^3/cmm (157-399) L 10/28/24 02:44 MPV 12.2 fL (7.4-10.4) H 10/28/24 02:44 Neut % (Auto) 66.8 % 10/28/24 02:44 Lymph % (Auto) 19.9 % 10/28/24 02:44 [place] % (Auto) 10.1 % 10/28/24 02:44 Eos % (Auto) 2.6 % 10/28/24 02:44 Baso % (Auto) 0.6 % 10/28/24 02:44 Neut # (Auto) 3.56 10^3/uL (1.8-7.7) 10/28/24 02:44 Lymph # (Auto) 1.1 10^3/uL (0.8-4.8) 10/28/24 02:44 [place] # (Auto) 0.5 10^3/uL (0.2-0.9) 10/28/24 02:44 Eos # (Auto) 0.1 10^3/uL (0.0-0.8) 10/28/24 02:44 Baso # (Auto) 0.0 10^3/uL (0.0-0.1) 10/28/24 02:44 Nucleated RBC % (auto) 0 % 10/28/24 02:44 Nucleated RBCs # 0.0 /100WBC 10/28/24 02:44 PT 15.20 SECONDS (12.1-14.9) H 10/26/24 08:00 INR 1.12 (0.8-1.2) 10/26/24 08:00 APTT 29.5 SECONDS (23.9-36.7) 10/26/24 08:00 Specimen Type Arterial 10/26/24 08:32 Sample Site Radial, left 10/26/24 08:32 ABG pH 7.27 (7.35-7.45) L 10/26/24 08:32 ABG pCO2 46.4 mmHg (35-45) H 10/26/24 08:32 ABG pO2 83.6 mmHg (80.0-100.0) 10/26/24 08:32 ABG HCO3 21.3 mmol/L (22-26) L 10/26/24 08:32 ABG O2 Saturation 95.4 10/26/24 08:32 ABG Base Excess -5.6 mmol/L (-2.0-2.0) L 10/26/24 08:32 Bk Test Pos 10/26/24 08:32 A-a O2 Gradient Not Reportable 10/26/24 08:32 Hematocrit 38.6 % (37-47) 10/26/24 08:32 Hgb O2 Saturation 94.4 % (95-100) L 10/26/24 08:32 Carboxyhemoglobin 0.8 %THgb (0.4-20.1) 10/26/24 08:32 Methemoglobin 0.2 % (0.4-1.5) L 10/26/24 08:32 Total Hemoglobin 12.6 g/dL (12-16) 10/26/24 08:32 Sodium 139.0 mmol/L (131-143) 10/26/24 08:32 Potassium 3.9 mmol/L (3.5-5.0) 10/26/24 08:32 Glucose 198.0 mg/dL (70-115) H 10/26/24 08:32 Ionized Calcium 1.3 mmol/L (1.1-1.4) 10/26/24 08:32 O2 Delivery Device Nc 10/26/24 08:32 O2 Liters/Min 4.0 % 10/26/24 08:32 FiO2 0.4 % 10/26/24 08:32 Primary Care Nurse ID Monro 10/26/24 08:32 Sodium 142 mmol/L (136-145) 10/28/24 02:44 Potassium 3.9 mmol/L (3.5-5.1) 10/28/24 02:44 Chloride 112 mmol/L (98-107) H 10/28/24 02:44 Carbon Dioxide 25 mmol/L (22-29) 10/28/24 02:44 Anion Gap 8.9 (5-19) 10/28/24 02:44 BUN 11 mg/dL (8-23) 10/28/24 02:44 Creatinine 0.7 mg/dL (0.5-0.9) 10/28/24 02:44 GFR Calculation Not Reportable 10/28/24 02:44 Glucose 122 mg/dL (65-115) H 10/28/24 02:44 POC Glucose 202 mg/dL (70-110) H 10/26/24 12:44 Calculated Osmolality 295 mOsm/kg (285-295) 10/28/24 02:44 Lactic Acid 3.0 mmol/L (0.5-2.2) H 10/26/24 08:00 Lactic Acid (Sepsis) 1.1 mmol/L (0.5-2.2) 10/26/24 11:31 Calcium 9.7 mg/dL (8.5-10.5) 10/28/24 02:44 Magnesium 1.9 mg/dL (1.7-2.3) 10/28/24 02:44 Total Bilirubin 0.3 mg/dL (0.15-1.2) 10/28/24 02:44 AST 12 U/L (0-32) 10/28/24 02:44 ALT 17 U/L (0-33) 10/28/24 02:44 Alkaline Phosphatase 147 U/L (35-105) H 10/28/24 02:44 Creatine Kinase 14 U/L (26-192) L 10/26/24 09:01 Troponin T Baseline 23 ng/L (0-10) H 10/26/24 09:01 Troponin T 120 Minute 22.07 ng/L (0-10) H 10/26/24 11:31 Delta Troponin T -0.93 ABS# (0-10) L 10/26/24 11:31 Troponin T Hi Sens 6Hr 17.90 ng/L (0-10) H 10/26/24 15:16 Troponin T Hi Sens 6Hr Delta -5.10 ng/L (0-12) L 10/26/24 15:16 NT-Pro-B Natriuret Pep 3362 pg/mL (0-450) H 10/26/24 09:01 Total Protein 5.5 g/dL (6.6-8.7) L 10/28/24 02:44 Albumin 3.1 g/dL (3.5-5.2) L 10/28/24 02:44 Globulin 2.4 g/dL (1.3-4.6) 10/28/24 02:44 Lipase 75 U/L (13-60) H 10/26/24 09:01 TSH 0.24 uIU/mL (0.27-4.20) L 10/26/24 11:31 Urine Color Yellow (Yellow) 10/26/24 08:45 Urine Appearance Clear (CLEAR) 10/26/24 08:45 Urine pH 6.0 (5-7) 10/26/24 08:45 Ur Specific [place] 1.046 (1.005-1.030) H 10/26/24 08:45 Urine Protein 2+ (Negative) A 10/26/24 08:45 Urine Glucose (UA) Negative (Normal) 10/26/24 08:45 Urine Ketones Negative (Negative) 10/26/24 08:45 Urine Blood Negative (Negative) 10/26/24 08:45 Urine Nitrate Positive (Negative) A 10/26/24 08:45 Urine Bilirubin Negative (Negative) 10/26/24 08:45 Urine Urobilinogen 1.0 mg/dL (Negative) 10/26/24 08:45 Ur Leukocyte Esterase Negative (Negative) 10/26/24 08:45 Urine RBC 0-2 /hpf (0-2) 10/26/24 08:45 Urine WBC 21-50 /hpf (0-5) H 10/26/24 08:45 Ur Squamous Epith Cells 0-5 /hpf (0-5) 10/26/24 08:45 Amorphous Sediment Not Reportable 10/26/24 08:45 Urine Bacteria 4+ /hpf (NONE) H 10/26/24 08:45 Hyaline Casts 9.91 /lpf 10/26/24 08:45 Urine Opiates Screen Negative ng/mL (Negative) 10/26/24 08:45 Ur Barbiturates Screen Negative ng/mL (Negative) 10/26/24 08:45 Ur Phencyclidine Scrn Negative ng/mL (Negative) 10/26/24 08:45 Ur Amphetamines Screen Negative ng/mL (Negative) 10/26/24 08:45 U Benzodiazepines Scrn Negative ng/mL (Negative) 10/26/24 08:45 Urine Cocaine Screen Negative ng/mL (Negative) 10/26/24 08:45 U Marijuana (THC) Screen Negative ng/mL (Negative) 10/26/24 08:45 Coronavirus (PCR) Negative (Negative) 10/26/24 08:53 Influenza A (PCR) Negative (Negative) 10/26/24 08:53 Influenza Type B (PCR) Negative (Negative) 10/26/24 08:53 RSV (PCR) Negative (Negative) 10/26/24 08:53 Vitals Last Vital Signs Temp 97.5 F L 10/29/24 08:00 Pulse 99 10/29/24 08:00 Resp 16 10/29/24 08:00 BP 155/89 10/29/24 08:00 Pulse Ox 91 10/29/24 08:00 O2 Del Method Room Air 10/29/24 04:00 O2 Flow Rate 1 10/27/24 10:37 Discharge Plan Discharge Patient Disposition: Xfer SNF Condition: Stable Prescriptions: New atorvastatin 40 mg Tablet 80 mg PO DAILY Qty: 60 0RF levetiracetam 500 mg Tablet 750 mg PO BID Qty: 90 0RF levothyroxine 112 mcg Tablet 112 mcg PO DAILY Qty: 30 0RF Continued (DME) BIPAP MACHINE Qty: 1 0RF Rx Instructions: As directed (DME) BIPAP MASK Qty: 1 2RF Rx Instructions: As directed (DME) BIPAP SUPPLIES Qty: 1 2RF Rx Instructions: As directed (DME) Easy Plus II Test Strip See Rx Instructions .ROUTE .MEDSUPPLY Qty: 50 3RF Rx Instructions: use one strip to check blood sugars two time daily (DME) blood-glucose meter [Easy Plus II Blood Glucose Met] [facility] [place] [facility] See Rx Instructions .ROUTE .MEDSUPPLY Qty: 1 0RF Rx Instructions: use meter two times a day to check blood sugar pantoprazole 40 mg tablet,delayed release (DR/EC) 40 mg PO QAM aspirin [Adult Low Dose Aspirin] 81 mg tablet,delayed release (DR/EC) 81 mg PO DAILY@0800 Qty: 60 0RF bumetanide 1 mg Tablet 1 mg PO DAILY PRN (Reason: Edema) lisinopril 20 mg tablet 20 mg PO DAILY docusate sodium 100 mg Capsule 100 mg PO BID alum-mag hydroxide-simeth 200-200-20 mg/5 mL Suspension 10 ml PO Q4H PRN (Reason: Constipation) Rx Instructions: administer between meals and at bedtime Miconazole-3 200 mg- 2 % (9 gram) Kit 1 applic VAGINAL TID Rx Instructions: as topical cream venlafaxine 150 mg capsule,extended release 24hr 150 mg PO QPM Rx Instructions: TAKE ONE CAPSULE BY MOUTH EVERY EVENING. metoprolol tartrate 50 mg tablet 50 mg PO BID Rx Instructions: TAKE ONE TABLET BY MOUTH TWICE DAILY AT 8am AND 8pm Xarelto 20 mg tablet 20 mg PO DAILY zonisamide 100 mg Capsule 300 mg PO DAILY Rx Instructions: take 3 capsules by mouth daily in the morning zonisamide 100 mg Capsule 200 mg PO QPM Rx Instructions: take 2 capsules by mouth at bedtime Discontinued atorvastatin 40 mg tablet 40 mg PO DAILY levothyroxine 125 mcg tablet 125 mcg PO DAILY Discharge Orders: Discharge Order (Routine); Ordered 10/29/24 Ordered By: Dipika Jones Referrals: [facility] [Outside] Emi Randall MD [Physician] - 2 weeks (A customer care representative from Dr. Randall's office should be calling the jail with a follow up appointment. If no call is received, please contact Dr. Randall's office to schedule. ) Aretha Davies, VENDING ENTERPRISES SUPERVISOR [Primary Care Provider] - Discharge Diet: Cardiac Discharge Activity: Resume usual activity Patient Instructions: Levothyroxine (By mouth) (Levothroid, Levoxyl, Synthroid, Tirosint), Atorvastatin (By mouth) (Lipitor, Atorvaliq), Levetiracetam (By mouth) (Keppra, Keppra XR, Spritam, Elepsia XR), Nitrofurantoin Combination (By mouth) (Macrobid), Urinary Tract Infection in Women (DC), Sepsis (DC), Hypotension (DC), Urinary Tract Infection in Older Adults (DC), Opioid Safety Discharge Attestations Time Spent in Discharge Care*: greater than 30 min Status at Discharge: Cognitive status at discharge: cognitively intact, Behavioral status at discharge: cooperative, Quality Metrics Clinical Quality Measures [ No reported AMI, CVA or VTE this stay] Coding Level of Care Code Acute Code for Chg Fwd Diagnoses Generalized seizure disorder G40.309 CVA (cerebral vascular accident) I63.9 Hypoxia R09.02 Elevated troponin R79.89 Acute respiratory failure with hypoxia and hypercapnia J96.01; J96.02 UTI (urinary tract infection) N39.0
[2024-10-29 12:00] VITALS: BP 153/93; PULSE 107; RESP 14; TEMP 36.4; O2SAT 90
--- NOTE | 2024-10-29 12:00 | PC.NURSE ---
1200: I received a call from patient's family stating that since they weren't going to be able to come and get patient, she could stay another night in the hospital. I informed her that the physician was in agreement that patient was stable and could d/c back to the snf, therefore we could potentially send her there in a taxi that would be covered by [facility]. She states she doesn't like that idea and will see if her and daughter will come pick patient up. 1215: I received a return call from patient's daughter stating that her and daughter would be there in about an hour to pick patient up and take her to [facility].
--- NOTE | 2024-10-29 12:42 | PC.NURSE ---
Report called to Charge nurse at [facility]. Informed of assisted fall this morning, skin issues, and lab results. All questions and concerns addressed. Family to provide transportation from hospital to jail.
--- NOTE | 2024-10-29 13:45 | PC.NURSE ---
Approximately 1345: Patient's son-in-law arrived to take patient to SNF. I provided him with d/c packet and asked that he please deliver that with patient to [facility]. Verified report already called by Pearl Benoit LPN. Patient's son-in-law verbalizes understanding and states he will deliver the packet with patient.
--- NOTE | 2024-10-29 13:50 | PC.NURSE ---
Message sent to Dr. Randall's office requesting an appointment within 2 weeks per d/c physician recommendation.
[2024-10-29 14:05] VITALS: BP 153/93; PULSE 107; RESP 14; TEMP 36.4; O2SAT 90
== END 2024-10-29 13:58 | disposition skilled nursing facility (03) | DRG 100 ==
LOC: ER 09:02 → ICU 12:41 → MEDSURG 10-27 18:27
PROVIDERS: Admitting Provider Internal Medicine; Emergency Provider Family Medicine; PCP Registered Nurse; Visit Provider Internal Medicine
DX: G40.409 Other generalized epilepsy and epileptic syndromes, not intractable, without status epilepticus (principal); J96.01 Acute respiratory failure with hypoxia; J96.02 Acute respiratory failure with hypercapnia; N39.0 Urinary tract infection, site not specified; I50.30 Unspecified diastolic (congestive) heart failure; G83.84 Todd's paralysis (postepileptic); R79.89 Other specified abnormal findings of blood chemistry; I48.0 Paroxysmal atrial fibrillation; G47.33 Obstructive sleep apnea (adult) (pediatric); E13.9 Other specified diabetes mellitus without complications; F32.A Depression, unspecified; E03.9 Hypothyroidism, unspecified; I11.0 Hypertensive heart disease with heart failure; K21.9 Gastro-esophageal reflux disease without esophagitis; I69.920 Aphasia following unspecified cerebrovascular disease; Z79.82 Long term (current) use of aspirin; Z79.01 Long term (current) use of anticoagulants
CPT/HCPCS: 36415; 36416; 36600; 51702; 70450; 70496; 70498; 71045; 80051; 80053; 80306; 81001; 82330; 82550; 82805; 82962; 83605; 83690; 83735; 83880; 84443; 84484; 85025; 85610; 85730; 87040; 87077; 87086; 87186; 87637; 92523; 92610; 93005; 93010; 93306; 96374; 96375; 96376; 97110; 97116; 97161; 97165; 99223; 99232; 99285; J1953; J2060; J2185; J3490; J7030

== ENCOUNTER → 2024-11-24 12:28 | Outpatient (BNVA) | payer MEDICARE, OTHER, SELFPAY | PROVIDERS: PCP Registered Nurse; Referring Provider Registered Nurse; Visit Provider Specialist | DX: G40.309 Generalized idiopathic epilepsy and epileptic syndromes, not intractable, without status epilepticus (principal); G47.10 Hypersomnia, unspecified; I69.320 Aphasia following cerebral infarction; I63.512 Cerebral infarction due to unspecified occlusion or stenosis of left middle cerebral artery; F01.50 Vascular dementia, unspecified severity, without behavioral disturbance, psychotic disturbance, mood disturbance, and anxiety; I42.9 Cardiomyopathy, unspecified | CPT/HCPCS: 99215 ==

== ENCOUNTER 2024-12-27 17:36 | Inpatient (IN) | payer MEDICARE, OTHER, SELFPAY ==
[2024-12-27] VITALS (8 sets, daily range): BP systolic 116–137; BP diastolic 70–99; PULSE 80–115; RESP 16–28; TEMP 36.6; O2SAT 91–94; BMI 29.9
--- NOTE | 2024-12-27 17:56 | ECG_ITS ---
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 Measurements Intervals [place] Rate: 142 P: 0 AK: 0 QRS: 52 QRSD: 88 T: 190 QT: 294 QTc: 453 Interpretive Statements ATRIAL FIBRILLATION WITH RAPID VENTRICULAR RESPONSE ST DEVIATION AND MODERATE T-WAVE ABNORMALITY, CONSIDER LATERAL ISCHEMIA [-0.1+ mV T-WAVE IN I/aVL/V5/V6] Compared to ECG 10/26/2024 17:57:35 Myocardial infarct finding no longer present T-wave abnormality still present Possible ischemia still present Electronically Signed On 12-30-2024 18:07:32 MANUFACTURING SPECIALIST by Bo Drummond M.D. [email or web address]
--- NOTE | 2024-12-27 17:57 | XRR_ITS ---
PROCEDURE INFORMATION: Exam: XR Chest Exam date and time: 12/27/2024 6:29 PM Age: 79 years old Clinical indication: Shortness of breath; Prior surgery; Surgery date: 6+ months; Surgery type: Pacemaker; Additional info: Hypoxia TECHNIQUE: Imaging protocol: Radiologic exam of the chest. Views: 1 view. COMPARISON: CR XR chest 1V portable [id number] 10/26/2024 9:04 AM FINDINGS: Tubes, catheters and devices: Left chest wall implantable pacer. Lungs: Mild interstitial prominence, similar compared to prior study, likely chronic change. No pulmonary consolidation. Pleural spaces: No pleural effusion or pneumothorax. Heart/Mediastinum: The cardiomediastinal silhouette is stable. Bones/joints: No acute osseous abnormalities are seen. XR/XR chest 1V portable [id number] IMPRESSION: 1. Nonspecific interstitial prominence, similar compared to prior study likely related to chronic change. Recurrent edema or atypical infection could also cause this appearance. 2. No definitive evidence of acute cardiopulmonary disease.
--- NOTE | 2024-12-27 17:57 | CTR_ITS ---
PROCEDURE INFORMATION: Exam: CT Head Without Contrast Exam date and time: 12/27/2024 6:07 PM Age: 79 years old Clinical indication: Injury or trauma; Fall; Blunt trauma (contusions or hematomas); Consciousness not specified; Additional info: Fall/unk injuries TECHNIQUE: Imaging protocol: Computed tomography of the head without contrast. Radiation optimization: All CT scans at this facility use at least one of these dose optimization techniques: automated exposure control; mA and/or kV adjustment per patient size (includes targeted exams where dose is matched to clinical indication); or iterative reconstruction. COMPARISON: CT angio headneck* [id number] 10/26/2024 8:24 AM demonstrating remote left MCA infarct and much lesser remote wedge-shaped right inferolateral cerebellar infarct. RADIATION DOSE METRICS: Total DLP (mGy-cm): 1305.6 FINDINGS: Brain: Again observed are the prominent remote ischemic changes involving the left posterior MCA/posterior watershed region. Also again noted is a much lesser wedge-shaped ischemic defect involving the posteroinferior right cerebellar cortex. Patchy periventricular and deep white matter decreased density seen in both cerebral hemispheres consistent with chronic small-vessel changes. The midline is intact. No hemorrhage. Unremarkable white matter. No mass effect. The patient is asymmetrically positioned within the gantry slightly challenging resolution. Additionally seen is some degree of patient motion artifact blurring detail. Cerebral ventricles: Ventricles demonstrate normal size shape and configuration and are felt to be in proportion of the degree of widening of the sulci, sylvian fissures and basilar cisterns. Paranasal sinuses: Visualized sinuses are unremarkable. No fluid levels. Mastoid air cells: Visualized mastoid air cells are well aerated. Orbital cavities: Bilateral cataract surgery. Bones: Hyperostosis frontalis interna is noted and in the range of normal No acute fracture. Soft tissues: Unremarkable. CT/CT head wo con* [id number] IMPRESSION: 1. No acute intracranial head CT findings. 2. Remote prominent left posterior MCA/posterior watershed and right inferior posterolateral cerebellar wedge-shaped ischemic defects. 3. Atrophy/involutional changes of aging with components of chronic small-vessel disease.
--- NOTE | 2024-12-27 17:57 | CTR_ITS ---
PROCEDURE INFORMATION: Exam: CT Cervical Spine Without Contrast Exam date and time: 12/27/2024 6:07 PM Age: 79 years old Clinical indication: Injury or trauma; Fall; Blunt trauma; Additional info: Fall/unk injuries TECHNIQUE: Imaging protocol: Computed tomography of the cervical spine without contrast. Radiation optimization: All CT scans at this facility use at least one of these dose optimization techniques: automated exposure control; mA and/or kV adjustment per patient size (includes targeted exams where dose is matched to clinical indication); or iterative reconstruction. COMPARISON: CT angio headneck* [id number] 10/26/2024 8:24 AM RADIATION DOSE METRICS: Total DLP (mGy-cm): 216.5 FINDINGS: Bones/joints: No acute fracture. Pupukcbw-ry-ofrtgd osteoarthritic/degenerative changes are seen involving the right C2-C3 facet. Contiguous endplate degenerative change with contiguous endplate sclerosis and mild circumferential spurring are noted at C6-C7. Mild right posterolateral spurring is seen at C4-C5. Coronal reconstructions demonstrate mild convexity being directed to the left. Sagittal images demonstrate relative alignment. C2-C3: No significant disc bulge or herniation. No severe spinal canal stenosis. No significant neural foraminal narrowing. C3-C4: Mild to moderate degenerative facet changes are seen on the left. Minimal left degenerative foraminal narrowing is present. The canal is intact/patent. C4-C5: Mild broad-based posterior spur/disc prominence is seen lateralizing to the left with mild foraminal narrowing. The canal is patent. C5-C6: Ketw-ffmxciw-xtky-right degenerative disc changes are seen encroaching upon the left neural foramen to a moderate degree and mildly so on the right. Mild canal narrowing is seen due to these degenerative changes. C6-C7: Oiqr-es-bgevnqtf broad-based posterior spurring is seen moderately narrowing the left neural foramen. Mild degenerative canal narrowing is seen. C7-T1: No significant disc bulge or herniation. No severe spinal canal stenosis. No significant neural foraminal narrowing. Lungs: Lung apices are normal. Soft tissues: A 1 cm ovoid shaped nodular like lesion is seen just to the right posterior to the trachea and to the right lateral aspect of the esophagus on image 66 of series 5. Aqukxrlr-fs-uolyup atherosclerotic calcifications are seen in both carotid bifurcations. CT/CT cervical spin wo con* [id number] IMPRESSION: 1. No acute osseous cervical spine CT findings. 2. 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 3. 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 COMMENTS: Consistent with the [employer]'s Incidental Findings Committee white paper (J Am Rosana Radiol 2015): In patients aged 35 years and older with an incidental thyroid nodule equal to or greater than 1.[address], MRI or extrathyroidal US, further evaluation with dedicated thyroid US is recommended for patients with normal life expectancy and without comorbidities. For smaller nodules without suspicious features, no further evaluation or follow up is recommended.
--- NOTE | 2024-12-27 18:03 | W.ED.NAVMDI ---
HPI - Nausea/Vomiting/Diarrhea General: Chief complaint: Nausea/Vomiting/Diarrhea Stated complaint: n/v Time Seen by Provider: 12/27/24 17:50 Source: EMS and other ([place] staff) Mode of arrival: EMS Limitations: physical limitation History of Present Illness: This patient is a 79-year-old female with past medical history of CVA with deficit of expressive aphasia, recurrent UTI, cognitive impairment, dementia, type 2 diabetes, heart failure, A-fib, and seizures who presents to the emergency department by ambulance from [facility] due to a suspected fall that occurred a few hours before coming in. Patient does not provide any history as she has the history of expressive aphasia, however is able to answer all of my questions with yes or no in regards to symptoms. She says no to any pain at this time. This is reportedly her baseline mentation. I then subsequently spoke to nurse from nursing facility who was able to tell me what it happened. She states that patient was seemingly normal this morning and had eaten as normal, but was complaining of being sick after being asked by nurse if she was feeling okay. Sometime this afternoon they had heard a thud, and found the patient on the ground and noted that her pupils were dilated and she appeared to be in respiratory distress. They put the patient on 2 L of O2 and titrated up to 4 L to get her back above 90%, she does not use oxygen regularly. It is reported that it took a good while for the patient to seemingly come around, and has remained at her baseline mentation per shelter staff. They state that normally she is ambulatory without any assistance. They note that her blood pressure after the incident of her falling was 110/100, and they had to retrieve the crash cart. Currently at this time patient's blood pressure 124/95, pulse normal. It was reported that her heart rate was bouncing all over the place and reviewing chart does have a history of A-fib. She is on a blood thinner. No obvious signs of injury. MD elicited complaint: nausea and vomiting Onset (ago): hour(s) Related Data Home Medications ?Medication ?Instructions ?Recorded ?Confirmed pantoprazole 40 mg tablet,delayed 40 mg PO QAM 03/14/24 11/24/24 release bumetanide 1 mg tablet 1 mg PO DAILY PRN Edema 06/12/24 11/24/24 aluminum-mag hydroxide-simethicone 10 ml PO Q4H PRN Constipation 10/26/24 11/24/24 200 mg-200 mg-20 mg/5 mL oral susp docusate sodium 100 mg capsule 100 mg PO BID 10/26/24 11/24/24 lisinopril 20 mg tablet 20 mg PO DAILY 10/26/24 11/24/24 metoprolol tartrate 50 mg tablet 50 mg PO BID 10/26/24 11/24/24 rivaroxaban 20 mg tablet (Xarelto) 20 mg PO DAILY 10/26/24 11/24/24 venlafaxine 150 mg 150 mg PO QPM 10/26/24 11/24/24 capsule,extended release 24 hr zonisamide 100 mg capsule 200 mg PO QPM 10/26/24 11/24/24 zonisamide 100 mg capsule 300 mg PO DAILY 10/26/24 11/24/24 ondansetron HCl 4 mg tablet 4 mg PO Q4H 11/24/24 11/24/24 Previous Rx's ?Medication ?Instructions ?Recorded BIPAP MACHINE #1 ea 12/05/19 BIPAP MASK #1 ea 12/05/19 BIPAP SUPPLIES #1 ea 12/05/19 blood-glucose meter (Easy Plus II #1 ea 05/23/20 Blood Glucose Meter) blood sugar diagnostic (Easy Plus #50 ea 04/15/21 II Test strips) aspirin 81 mg tablet,delayed 81 mg PO DAILY@0800 #60 tabs 03/14/24 release (Adult Low Dose Aspirin) atorvastatin 40 mg tablet 80 mg (2 x 40 mg) PO DAILY #60 tabs 10/27/24 levetiracetam 500 mg tablet 750 mg (1.5 x 500 mg) PO BID #90 10/27/24 tabs levothyroxine 112 mcg tablet 112 mcg PO DAILY #30 tabs 10/27/24 Allergies Allergy/AdvReac Type Severity Reaction Status Date / Time Penicillins Allergy Unknown Unknown Verified 12/27/24 18:59 tetanus and diphtheria Allergy Unknown Verified 12/27/24 18:59 toxoids morphine AdvReac Intermediate ADR-Confusi Verified 12/27/24 18:59 on penicillin G procaine AdvReac unknown Verified 12/27/24 18:59 Review of Systems General: Reports: ROS unobtainable due to medical condition PFSH ED PFSH: Medical History CVA (cerebral vascular accident) UTI (urinary tract infection) Hypotension Aphasia Multiple falls Altered mental status Acute cystitis Hypersomnia TIA (transient ischemic attack) Recurrent UTI Medication noncompliance due to cognitive impairment Need for assistance with personal care Need for assistance due to reduced mobility Mild cognitive impairment with memory loss Oxygen dependent ANGIE (acute kidney injury) Hypertension Transient cerebral ischemia Chronic migraine without aura, intractable, with status migrainosus GERD (gastroesophageal reflux disease) 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) Dementia Obstructive sleep apnea Sleep apnea Type 2 diabetes mellitus Tachy-martin syndrome Non-insulin dependent diabetes mellitus -A1c (12/2019): 8.3 -Accucheks, ISS, hypoglycemia precautions -consistent carb diet as tolerated -takes metformin at home, can resume on d/c Drug-induced bradycardia Digoxin was discontinued along beta-alexandrea Atrial flutter Diastolic heart failure Generalized epilepsy CHF (congestive heart failure) Atrial fibrillation Severe obstructive sleep apnea Hypothyroidism Depressed Atrial dysrhythmia Diabetes 1.5, managed as type 2 Sleep apnea in adult Stroke due to embolism of left middle cerebral artery -prior hx of L MCA CVA in 05/2019; did not receive tPA -has been f/u with Dr. Randall -attributed to atrial fibrillation -on ASA, statin, AC with Eliquis -has residual cognitive impairment Seizure Heart failure Paroxysmal A-fib Surgical History Status post cardiac pacemaker procedure No pertinent past surgical history Family History Sister Diabetes Father Heart disease Mother Heart disease Social History Smoking and tobacco/nicotine status: never used tobacco/nicotine Alcohol intake: never Substance/Drug Use: never Physical Exam Const: OTHER: No obvious signs of injury, patient awake and alert. Answers yes or no to being asked if she knows where she is, her name, and her date of . Otherwise does not provide any specific answers and this is reportedly her baseline. She does follow commands. HENMT: COMMON NORMALS: normocephalic, atraumatic, hearing grossly normal bilaterally and moist oral mucous membranes HEAD & SCALP: normocephalic and atraumatic; no De Souza's sign, no palpable skull fracture, no raccoon eyes and no scalp lesion FACE & SINUS: normal facial exam Eye: COMMON NORMALS: Equal, round and reactive pupils present, EOMs intact bilaterally and conjunctivae normal CONJUNCTIVA: Yes conjunctivae normal PUPIL: Yes Equal, round and reactive pupils present Neck/C-Spine: COMMON NORMALS: full ROM, supple and no meningeal signs Chest: COMMONS NORMALS: normal inspection of the chest Resp: COMMON NORMALS: normal respiratory effort, No retractions, No use of accessory muscles and clear to auscultation bilaterally AUSCULTATION: clear to auscultation bilaterally Cardio: COMMON NORMALS: regular rate, regular rhythm, S1 normal heart sound present, S2 normal heart sound present, No gallops present (Cardio), No murmurs present (Cardio), No rub (Cardio) and Peripheral pulses 2+ throughout RATE: regular rate RHYTHM: regular rhythm HEART SOUNDS: S1 normal heart sound present and S2 normal heart sound present PERIPHERAL PULSES: Peripheral pulses 2+ throughout GI: COMMON NORMALS: Soft to palpation and non-tender PALPATION: Yes Soft to palpation Extremity: COMMON NORMALS: normal to inspection, full ROM, capillary refill normal, no joint enlargement and no clubbing, cyanosis or edema NARRATIVE EXTREMITY EXAM: No obvious signs of injuries to all extremities, no deformity or bruising. Neuro: COMMON NORMALS: moves all extremities, no focal motor deficits and no sensory deficits noted MENINGEAL SIGNS: Yes no meningeal signs SPEECH: expressive aphasia OTHER: Patient follows commands. pronator drift of the right upper extremity though this may be secondary to residual deficit from prior CVA. Skin: COMMON NORMALS: no rashes or lesions noted GENERAL SKIN EXAM: no rashes or lesions noted Course Vital Signs: Vital signs: Vital Signs Temperature 98 F 12/27/24 17:39 Pulse Rate 104 H 12/27/24 21:17 Respiratory Rate 25 H 12/27/24 21:17 Blood Pressure 137/99 12/27/24 21:17 Pulse Oximetry 92 12/27/24 21:17 Oxygen Delivery Me thod Nasal Cannula 12/27/24 20:03 Oxygen Flow Rate 2 12/27/24 20:03 MDM - Nausea/Vomiting/Diarrhea Medical Decision Making This patient had been brought in by ambulance for reported fall and unresponsive episode at shelter. History of CVA with expressive aphasia. Clinically seem to be at baseline mentation as she was able to follow commands and answer all of my questions with yes or no, just could not be descriptive with her answers. I spoke with shelter staff who had confirmed that she seemed to be at baseline mentation but did have an episode of falling and had been nauseous and vomiting throughout the day. No obvious injuries with the examination. However it was unknown what she hit with the fall, so ordered head neck CT that did not show any acute findings. Her chest x-ray did not show any definitive evidence of acute cardiopulmonary process. Labs were obtained, specifically troponin levels which seem to be baseline for her. Her EKG reviewed showing A-fib with RVR and thus was started on diltiazem with diltiazem drip, heart rate has been mostly controlled throughout ED stay. She does have a history of A-fib and is on Xarelto. With her labs found her LFTs to be moderately elevated, she has a history of elevation in the past, 3 years ago. This note from 3 years ago was reviewed showing again isolated transaminitis with no evidence on CT of hepatic or biliary abnormality. However to my knowledge she has never received an MRCP or biopsy of the liver. Evidence here today that she has the isolated transaminitis, however of note is also requiring oxygen, specifically 2 L to maintain above 90%. Again with the prior visit 3 years ago she was in acute hypoxic respiratory failure at that time. A focused gallbladder ultrasound was obtained showing some wall thickening with no signs of cholecystitis or stone/ductal dilatation. Potentially mild UTI on urinalysis. I spoke to Dr. Borrego about this patient a couple of times throughout the ED stay. Ultimately spoke with admitting hospitalist, Dr. Amor, who agrees to accept patient to the hospital. Dr. Borrego putting in admit orders at this time. Lab Data 12/27/24 18:39 12/27/24 18:39 Radiology Impressions Cervical Spine CT 12/27/24 17:57 IMPRESSION: 1. No acute osseous cervical spine CT findings. 2. 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 3. 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 COMMENTS: Consistent with the [employer] [place] [employer]'s Incidental Findings Committee white paper (J Am Rosana Radiol 2015): In patients aged 35 years and older with an incidental thyroid nodule equal to or greater than 1.[address], MRI or extrathyroidal US, further evaluation with dedicated thyroid US is recommended for patients with normal life expectancy and without comorbidities. For smaller nodules without suspicious features, no further evaluation or follow up is recommended. Chest X-Ray 12/27/24 17:57 IMPRESSION: 1. Nonspecific interstitial prominence, similar compared to prior study likely related to chronic change. Recurrent edema or atypical infection could also cause this appearance. 2. No definitive evidence of acute cardiopulmonary disease. Head CT 12/27/24 17:57 IMPRESSION: 1. No acute intracranial head CT findings. 2. Remote prominent left posterior MCA/posterior watershed and right inferior posterolateral cerebellar wedge-shaped ischemic defects. 3. Atrophy/involutional changes of aging with components of chronic small-vessel disease. Chest/Abdomen/Pelvis CT 12/27/24 19:37 IMPRESSION: 1. No pulmonary emboli. 2. Moderate right and small left pleural effusions. No focal consolidation. IMPRESSION: 1. 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 2. 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 3. Marked gallbladder wall thickening with no gallstones identified. No intrahepatic or extrahepatic biliary ductal dilatation. Gallbladder Ultrasound 12/27/24 21:17 IMPRESSION: Unremarkable duplex of the portal vein. IMPRESSION: Mild nonspecific gallbladder wall thickening. Laboratory Results WBC 8.79 10^3/uL (3.29-11.43) 12/27/24 18:39 RBC 4.92 10^6/uL (3.85-5.65) 12/27/24 18:39 Hgb 14.30 g/dL (11.27-16.99) 12/27/24 18:39 Hct 46.7 % (36-47) 12/27/24 18:39 MCV 94.9 fl (85-98) 12/27/24 18:39 MCH 29.1 pg (27-33) 12/27/24 18:39 MCHC 30.6 g/dL (30-55) 12/27/24 18:39 RDW 14.8 % (12.1-15.1) 12/27/24 18:39 Plt Count 176 10^3/cmm (157-399) 12/27/24 18:39 MPV 12.4 fL (7.4-10.4) H 12/27/24 18:39 Neut % (Auto) 72.4 % 12/27/24 18:39 Lymph % (Auto) 17.1 % 12/27/24 18:39 Gray % (Auto) 9.2 % 12/27/24 18:39 Eos % (Auto) 0.2 % 12/27/24 18:39 Baso % (Auto) 0.3 % 12/27/24 18:39 Neut # (Auto) 6.36 10^3/uL (1.8-7.7) 12/27/24 18:39 Lymph # (Auto) 1.5 10^3/uL (0.8-4.8) 12/27/24 18:39 Gray # (Auto) 0.8 10^3/uL (0.2-0.9) 12/27/24 18:39 Eos # (Auto) 0.0 10^3/uL (0.0-0.8) 12/27/24 18:39 Baso # (Auto) 0.0 10^3/uL (0.0-0.1) 12/27/24 18:39 Nucleated RBC % (auto) 0 % 12/27/24 18: Nucleated RBCs # 0.0 /100WBC 12/27/24 18:39 Sodium 141 mmol/L (136-145) 12/27/24 18:39 Potassium 4.9 mmol/L (3.5-5.1) 12/27/24 18:39 Chloride 108 mmol/L (98-107) H 12/27/24 18:39 Carbon Dioxide 21 mmol/L (22-29) L 12/27/24 18:39 Anion Gap 16.9 (5-19) 12/27/24 18:39 BUN 24 mg/dL (8-23) H 12/27/24 18:39 Creatinine 0.9 mg/dL (0.5-0.9) 12/27/24 18:39 GFR Calculation Not Reportable 12/27/24 18:39 Glucose 165 mg/dL (65-115) H 12/27/24 18:39 Calculated Osmolality 300 mOsm/kg (285-295) H 12/27/24 18:39 Lactic Acid 2.1 mmol/L (0.5-2.2) 12/27/24 18:39 Lactic Acid (Sepsis) 1.4 mmol/L (0.5-2.2) 12/27/24 20:44 Calcium 9.7 mg/dL (8.5-10.5) 12/27/24 18:39 Total Bilirubin 0.6 mg/dL (0.15-1.2) 12/27/24 18:39 AST 889 U/L (0-32) H 12/27/24 18:39 ALT 1141 U/L (0-33) H 12/27/24 18:39 Alkaline Phosphatase 408 U/L (35-105) H 12/27/24 18:39 Creatine Kinase 32 U/L (26-192) 12/27/24 18:39 Troponin T Baseline 45 ng/L (0-10) H 12/27/24 18:39 Troponin T 120 Minute 43.72 ng/L (0-10) H 12/27/24 20:44 Delta Troponin T -1.28 ABS# (0-10) L 12/27/24 20:44 Total Protein 5.7 g/dL (6.6-8.7) L 12/27/24 18:39 Albumin 3.9 g/dL (3.5-5.2) 12/27/24 18:39 Globulin 1.8 g/dL (1.3-4.6) 12/27/24 18:39 Triglycerides 52 mg/dL (0-150) 12/27/24 20:44 Lipase 71 U/L (13-60) H 12/27/24 18:39 Urine Color Yellow (Yellow) 12/27/24 20:39 Urine Appearance Clear (CLEAR) 12/27/24 20: Urine pH 5.0 (5-7) 12/27/24 20:39 Ur Specific Fanshawe 1.068 (1.005-1.030) H 12/27/24 20:39 Urine Protein 1+ (Negative) A 12/27/24 20: Urine Glucose (UA) Negative (Normal) 12/27/24 20:39 Urine Ketones Negative (Negative) 12/27/24 20:39 Urine Blood Negative (Negative) 12/27/24 20:39 Urine Nitrate Positive (Negative) A 12/27/24 20:39 Urine Bilirubin Negative (Negative) 12/27/24 20:39 Urine Urobilinogen 1.0 mg/dL (Negative) 12/27/24 20:39 Ur Leukocyte Esterase Negative (Negative) 12/27/24 20:39 Urine RBC None /hpf (0-2) 12/27/24 20:39 Urine WBC 5-10 /hpf (0-5) H 12/27/24 20:39 Ur Squamous Epith Cells 0-4 /hpf (0-5) H 12/27/24 20:39 Amorphous Sediment Not Reportable 12/27/24 20:39 Urine Bacteria 1+ /hpf (NONE) H 12/27/24 20:39 Influenza A (PCR) Negative (Negative) 12/27/24 18:35 Influenza Type B (PCR) Negative (Negative) 12/27/24 18:35 RSV (PCR) Negative (Negative) 12/27/24 18:35 SARS-CoV-2 (PCR) Negative (Negative) 12/27/24 18:35 All radiology interpretation(s) finalized by discharge Discharge Plan Discharge Patient Disposition: Admitted As Inpatient Admit Provider: Oanh Amor Clinical Impression: Transaminitis Respiratory failure with hypoxia Qualifiers: Chronicity: acute Qualified Code(s): J96.01 - Acute respiratory failure with hypoxia Condition: Stable Coding Level of Care Code ED [employer] T[employer] Helper for Morgan Sanchez
[2024-12-27 18:53] LABS: Basophils % 0.3 %; Eosinophils % 0.2 %; Hematocrit 46.7 % (36-47); Lymphocytes # 1.5 10^3/uL (0.8-4.8); Lymphocytes % 17.1 %; Mean Corpuscular HGB Conc 30.6 g/dL (30-55); Mean Corpuscular Hemoglobin 29.1 pg (27-33); Mean Corpuscular Volume 94.9 fl (85-98); Mean Platelet Volume 12.4 fL (7.4-10.4); Monocytes # 0.8 10^3/uL (0.2-0.9); Monocytes % 9.2 %; Neutrophils # 6.36 10^3/uL (1.8-7.7); Neutrophils % 72.4 %; Nucleated Red Blood Cells % 0 %; Platelet Count 176 10^3/cmm (157-399); Red Blood Count 4.92 10^6/uL (3.85-5.65); Red Cell Distribution Width 14.8 % (12.1-15.1); White Blood Count 8.79 10^3/uL (3.29-11.43)
[2024-12-27] MEDS: dilTIAZem 5 mg/mL SDV 5 mL 10 MG IVP (18:58)
[2024-12-27] MEDS: ondansetron 2 mg/ML SDV 2 mL 4 MG IVP (18:58)
[2024-12-27 19:16] LABS: Troponin(5th) Baseline 45 ng/L (0-10)
[2024-12-27 19:17] LABS: Albumin Level 3.9 g/dL (3.5-5.2); Alkaline Phosphatase 408 U/L (35-105); Anion Gap 16.9 (5-19); Blood Urea Nitrogen 24 mg/dL (8-23); Calcium 9.7 mg/dL (8.5-10.5); Carbon Dioxide 21 mmol/L (22-29); Chloride 108 mmol/L (98-107); Creatine Phosphokinase 32 U/L (26-192); Globulin 1.8 g/dL (1.3-4.6); Glucose 165 mg/dL (65-115); Lipase 71 U/L (13-60); Osmolality Calculated 300 mOsm/kg (285-295); Potassium 4.9 mmol/L (3.5-5.1); Sodium 141 mmol/L (136-145); Total Bilirubin 0.6 mg/dL (0.15-1.2); Total Protein 5.7 g/dL (6.6-8.7)
[2024-12-27 19:18] LABS: Lactic Sepsis W/Reflex 2.1 mmol/L (0.5-2.2)
[2024-12-27] MEDS: dilTIAZem 100 MG in sodium chloride 0.9% (add-van) 100 ML IV (19:20)
[2024-12-27 19:29] LABS: Alanine Aminotransferase 1141 U/L (0-33)
[2024-12-27 19:31] LABS: Aspartate Amino Transferase 889 U/L (0-32)
--- NOTE | 2024-12-27 19:37 | CTR_ITS ---
PROCEDURE INFORMATION: Exam: CT Chest With Contrast; Diagnostic Exam date and time: 12/27/2024 7:49 PM Age: 79 years old Clinical indication: Nausea and vomiting; Dyspnea and shortness of breath; Additional info: N/v, elevated lfts, alk phosp TECHNIQUE: Imaging protocol: Diagnostic computed tomography of the chest with contrast. Radiation optimization: All CT scans at this facility use at least one of these dose optimization techniques: automated exposure control; mA and/or kV adjustment per patient size (includes targeted exams where dose is matched to clinical indication); or iterative reconstruction. Contrast material: OMNI 350; Contrast volume: 100 ml; Contrast route: INTRAVENOUS (IV); COMPARISON: CT angio chest PE protcl [id number] 12/02/2021 11:24 PM RADIATION DOSE METRICS: Total DLP (mGy-cm): 1090.68 FINDINGS: Lungs: See Pleural spaces finding. Pleural spaces: Moderate right and small left pleural effusions. No focal consolidation. Heart: The heart is enlarged. Coronary arteries: Coronary arterial atherosclerotic calcifications are present. Lymph nodes: Unremarkable. No enlarged lymph nodes. Vasculature: No pulmonary emboli. Bones/joints: Unremarkable. No acute fracture. Soft tissues: Unremarkable. PROCEDURE INFORMATION: Exam: CT Abdomen And Pelvis With Contrast Exam date and time: 12/27/2024 7:49 PM Age: 79 years old Clinical indication: Nausea and vomiting; Dyspnea and shortness of breath; Additional info: N/v, elevated lfts, alk phosp TECHNIQUE: Imaging protocol: Computed tomography of the abdomen and pelvis with contrast. Radiation optimization: All CT scans at this facility use at least one of these dose optimization techniques: automated exposure control; mA and/or kV adjustment per patient size (includes targeted exams where dose is matched to clinical indication); or iterative reconstruction. Contrast material: OMNI 350; Contrast volume: 100 ml; Contrast route: INTRAVENOUS (IV); COMPARISON: CT abdomen pelvis w con* [id number] 11/12/2021 7:18 PM RADIATION DOSE METRICS: Total DLP (mGy-cm): 1090.68 FINDINGS: Liver: See Gallbladder and biliary ducts finding. Gallbladder and biliary ducts: Marked gallbladder wall thickening with no gallstones identified. No intrahepatic or extrahepatic biliary ductal dilatation. Pancreas: Normal. No ductal dilation. Spleen: Normal. No splenomegaly. Adrenal glands: Normal. No mass. Kidneys and ureters: Normal. No hydronephrosis. Stomach and bowel: Unremarkable. No obstruction. No mucosal thickening. Appendix: No evidence of appendicitis. Intraperitoneal space: Unremarkable. No free air. No significant fluid collection. 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 Atherosclerotic disease of the abdominal aorta and iliac arteries. Lymph nodes: Unremarkable. No enlarged lymph nodes. Urinary bladder: Unremarkable as visualized. Reproductive: Unremarkable as visualized. Bones/joints: Unremarkable. No acute fracture. Soft tissues: Unremarkable. CT/CT chest abdpel w/*[id number] IMPRESSION: 1. No pulmonary emboli. 2. Moderate right and small left pleural effusions. No focal consolidation. IMPRESSION: 1. 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 2. 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 3. Marked gallbladder wall thickening with no gallstones identified. No intrahepatic or extrahepatic biliary ductal dilatation.
[2024-12-27] MEDS: iohexol 350 mg/mL 500 mL Btl (per mL) IV (19:51)
--- NOTE | 2024-12-27 19:56 | ECG_ITS ---
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 Measurements Intervals [place] Rate: 104 P: 0 OR: 0 QRS: 54 QRSD: 97 T: 242 QT: 355 QTc: 468 Interpretive Statements ATRIAL FIBRILLATION WITH RAPID VENTRICULAR RESPONSE SEPTAL MYOCARDIAL INFARCTION , OF INDETERMINATE AGE [40+ ms Q WAVE IN V1/V2] ST DEVIATION AND MODERATE T-WAVE ABNORMALITY, CONSIDER ANTEROLATERAL ISCHEMIA [-0.1+ mV T-WAVE IN V3-V6] ST DEVIATION AND MODERATE T-WAVE ABNORMALITY, CONSIDER INFERIOR ISCHEMIA [-0.1+ mV T-WAVE IN II/aVF] Compared to ECG 12/27/2024 18:45:07 Myocardial infarct finding now present T-wave abnormality still present Possible ischemia still present Electronically Signed On 12-30-2024 19:40:41 FLAT M[employer] by Bo Drummond M.D. [email or web address]
[2024-12-27 20:09] LABS: Influenza A NEGATIVE (Negative); Influenza B NEGATIVE (Negative); Respiratory Syncytial Virus Ce NEGATIVE (Negative); SARS-CoV-2 PCR NEGATIVE (Negative)
[2024-12-27 20:34] LABS: Reflex Lactate Order REFLEX LACTIC ORDERD
[2024-12-27 20:50] LABS: Bilirubin Urine Negative (Negative); Blood Urine Negative (Negative); Glucose Urine UA Negative (Normal); Ketones Urine Negative (Negative); Leukocyte Esterase Urine Negative (Negative); Nitrate Urine Positive (Negative); Protein Urine 1+ (Negative); Urine Appearance Clear (CLEAR); Urine Color Yellow (Yellow)
--- NOTE | 2024-12-27 21:17 | USR_ITS ---
PROCEDURE INFORMATION: Exam: US Duplex Artery or Vein of the Abdominal and/or Reproductive Organs, Limited Liver Exam date and time: 12/27/2024 9:51 PM Age: 79 years old Clinical indication: Other: Elevated lfts; HX CVA deficit aphasia, dm2, chf, afib, seizures, found on floor in [facility]. TECHNIQUE: Imaging protocol: Real-time duplex ultrasound scan of the arterial or venous flow with color Doppler flow and spectral waveform analysis with image documentation. Limited Duplex exam focused on the liver and portal venous system. Duplex exam was performed to evaluate for vascular conditions. COMPARISON: US abdomen limited [id number] 11/13/2021 2:10 PM FINDINGS: Portal venous: Patent. Normal waveforms. Normal hepatopetal (towards the liver) flow. Hepatic artery: Not assessed. PROCEDURE INFORMATION: Exam: US Abdomen, Limited; Right Upper Quadrant Exam date and time: 12/27/2024 9:51 PM Age: 79 years old Clinical indication: Other: Elevated lfts; HX CVA deficit aphasia, dm2, chf, afib, seizures, found on floor in [facility]. TECHNIQUE: Imaging protocol: Real time ultrasound of the abdomen with image documentation. Limited exam focused on the right upper quadrant. COMPARISON: US abdomen limited [id number] 11/13/2021 2:10 PM FINDINGS: Pleural spaces: Small right pleural effusion. Liver: The liver is normal. No hepatic masses are identified. Gallbladder: 6 mm nonshadowing, non mobile echogenic focus arising from the gallbladder wall consistent with small polyp, stable compared to 2021. Mild nonspecific gallbladder wall thickening. No gallstones. Negative sonographic Heaton's sign. Biliary ducts: There is no evidence of intra or extrahepatic ductal dilatation. The common bile duct measures 4 mm. Pancreas: The pancreas is obscured by bowel gas. Right kidney: 2 cm right renal cysts. No renal calcification or hydronephrosis. Apparent cortical thinning. The right kidney measures 10.1 cm in length. Aorta: The visualized aorta appears within normal limits. Inferior vena cava: The visualized inferior vena cava is within normal limits. Portal venous: The portal vein is patent. US/US gall bladder [id number] IMPRESSION: Unremarkable duplex of the portal vein. IMPRESSION: Mild nonspecific gallbladder wall thickening.
[2024-12-27 21:29] LABS: Add Urine Microscopic? YES; Bacteria Urine 1+ /hpf; Specific Gravity, Urine 1.068 (1.005-1.030); Squamous Epithelial Cell Urine 0-4 /hpf (0-5); UA Manual Slide Review YES; UA Slide Review UA Slide Review Perf
[2024-12-27 21:29] LABS: Lactic Acid level (Lactate) 1.4 mmol/L (0.5-2.2)
[2024-12-27 21:31] LABS: Troponin 5 2HR 43.72 ng/L (0-10)
[2024-12-27 21:36] LABS: Troponin 5 2HR Delta -1.28 ABS# (0-10)
[2024-12-27 21:47] LABS: Triglycerides 52 mg/dL (0-150)
--- NOTE | 2024-12-27 22:06 | PM.HP ---
Providers/Chief Complaint Admitting Physician: Oanh Amor MD Primary Care Provider: STEFANI Villaseñor Chief Complaint: n/v History of Present Illness Gianluca Goode is a 79 year old female with seizures, global aphasia, right-sided weakness, UTIs, A-fib, chronic anticoagulation, recurrent falls presented to the hospital with chief complaint of recurrent nausea vomiting. Patient presented from [facility] with suspected fall, she does not have any trauma, complaining of soreness in her belly, information was taken from the nursing facility, patient had her breakfast without any difficulty and then after that she started getting sick she has had multiple episode of emesis, around afternoon and noise was heard in the room when nurses checked on her patient was on the ground, she was short of breath she was put on 2 L of oxygen, she does not use oxygen at baseline she took some time to become oriented again. At baseline patient gets mechanical soft diet, ambulatory without any difficulty. 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, celiac trunk with nonspecific gallbladder wall thickening Chronic infarct evident on CT head cervical spine CT unremarkable other than degenerative joint disease No signs of UTI, troponin trending down, lactic acid normal, calcium within normal range Review of Systems General: Reports: ROS unobtainable due to medical condition Medications/Allergies Home Medications ?Medication ?Instructions ?Recorded ?Confirmed ?Last Taken ?Type BIPAP MACHINE #1 ea 12/05/19 11/24/24 Unknown Rx BIPAP MASK #1 ea 12/05/19 11/24/24 Unknown Rx BIPAP SUPPLIES #1 ea 12/05/19 11/24/24 Unknown Rx blood-glucose meter (Easy Plus II #1 ea 05/23/20 11/24/24 Unknown Rx Blood Glucose Meter) blood sugar diagnostic (Easy Plus #50 ea 04/15/21 11/24/24 Unknown Rx II Test strips) aspirin 81 mg tablet,delayed 81 mg PO DAILY@0800 #60 tabs 03/14/24 11/24/24 10/25/24 Rx release (Adult Low Dose Aspirin) pantoprazole 40 mg tablet,delayed 40 mg PO QAM 03/14/24 11/24/24 10/25/24 History release bumetanide 1 mg tablet 1 mg PO DAILY PRN Edema 06/12/24 11/24/24 10/26/24 History aluminum-mag hydroxide-simethicone 10 ml PO Q4H PRN Constipation 10/26/24 11/24/24 Unknown History 200 mg-200 mg-20 mg/5 mL oral susp docusate sodium 100 mg capsule 100 mg PO BID 10/26/24 11/24/24 10/26/24 History lisinopril 20 mg tablet 20 mg PO DAILY 10/26/24 11/24/24 Unknown History metoprolol tartrate 50 mg tablet 50 mg PO BID 10/26/24 11/24/24 Unknown History rivaroxaban 20 mg tablet (Xarelto) 20 mg PO DAILY 10/26/24 11/24/24 10/26/24 History venlafaxine 150 mg 150 mg PO QPM 10/26/24 11/24/24 10/25/24 History capsule,extended release 24 hr zonisamide 100 mg capsule 200 mg PO QPM 10/26/24 11/24/24 Unknown History zonisamide 100 mg capsule 300 mg PO DAILY 10/26/24 11/24/24 Unknown History atorvastatin 40 mg tablet 80 mg (2 x 40 mg) PO DAILY #60 tabs 10/27/24 11/24/24 Unknown Rx levetiracetam 500 mg tablet 750 mg (1.5 x 500 mg) PO BID #90 10/27/24 11/24/24 Unknown Rx tabs levothyroxine 112 mcg tablet 112 mcg PO DAILY #30 tabs 10/27/24 11/24/24 Unknown Rx ondansetron HCl 4 mg tablet 4 mg PO Q4H 11/24/24 11/24/24 Unknown History Allergies Allergy/AdvReac Type Severity Reaction Status Date / Time Penicillins Allergy Unknown Unknown Verified 12/27/24 18:59 tetanus and diphtheria Allergy Unknown Verified 12/27/24 18:59 toxoids morphine AdvReac Intermediate ADR-Confusi Verified 12/27/24 18:59 on penicillin G procaine AdvReac unknown Verified 12/27/24 18:59 PFSH Acute PFSH: Medical History CVA (cerebral vascular accident) UTI (urinary tract infection) Hypotension Aphasia Multiple falls Altered mental status Acute cystitis Hypersomnia TIA (transient ischemic attack) Recurrent UTI Medication noncompliance due to cognitive impairment Need for assistance with personal care Need for assistance due to reduced mobility Mild cognitive impairment with memory loss Oxygen dependent ANGIE (acute kidney injury) Hypertension Transient cerebral ischemia Chronic migraine without aura, intractable, with status migrainosus GERD (gastroesophageal reflux disease) 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) Dementia Obstructive sleep apnea Sleep apnea Type 2 diabetes mellitus Tachy-martin syndrome Non-insulin dependent diabetes mellitus -A1c (12/2019): 8.3 -Accucheks, ISS, hypoglycemia precautions -consistent carb diet as tolerated -takes metformin at home, can resume on d/c Drug-induced bradycardia Digoxin was discontinued along beta-alexandrea Atrial flutter Diastolic heart failure Generalized epilepsy CHF (congestive heart failure) Atrial fibrillation Severe obstructive sleep apnea Hypothyroidism Depressed Atrial dysrhythmia Diabetes 1.5, managed as type 2 Sleep apnea in adult Stroke due to embolism of left middle cerebral artery -prior hx of L MCA CVA in 05/2019; did not receive tPA -has been f/u with Dr. Randall -attributed to atrial fibrillation -on ASA, statin, AC with Eliquis -has residual cognitive impairment Seizure Heart failure Paroxysmal A-fib Surgical History Status post cardiac pacemaker procedure No pertinent past surgical history Family History Sister Diabetes Father Heart disease Mother Heart disease Social History Smoking and tobacco/nicotine status: never used tobacco/nicotine Alcohol intake: never Substance/Drug Use: never Vitals/I&O/Wt Last Vital Signs Temp 98 F 12/27/24 17:39 Pulse 104 H 12/27/24 21:17 Resp 25 H 12/27/24 21:17 BP 137/99 12/27/24 21:17 Pulse Ox 92 12/27/24 21:17 O2 Del Method Nasal Cannula 12/27/24 20:03 O2 Flow Rate 2 12/27/24 20:03 Weight last 48 hrs Weight 81.647 kg Physical Exam Narrative: Clinically patient looks dehydrated GCS 15 Nonfocal neuroexam S1, S2 with with A-fib RVR Hypertensive Abdomen no signs of peritonitis No signs of Heaton's sign Low extremity no edema Clinically looks dehydrated to me Currently on 2 L nasal cannula Global aphasia No active distress Data 12/27/24 18:39 12/27/24 18:39 A&P Assessment and plan (1) Generalized seizure disorder: (2) Multi-infarct dementia: (3) Aphasia as late effect of stroke: (4) Transaminitis: (5) Elevated liver enzymes: (6) Respiratory failure with hypoxia: Qualifiers: Chronicity: acute Qualified Code(s): J96.01 - Acute respiratory failure with hypoxia (7) Guremet's paralysis: (8) Atrial fibrillation with RVR: Plan A-fib RVR Wean off Cardizem drip I will continue her metoprolol and Xarelto Ground-level fall Most likely patient suffered from Gurmeet's paralysis after unwitnessed seizure I will give her loading dose of Keppra, then continue p.o. Keppra dose Her confusion likely was postictal Quality able to comprehend my questions, she has global aphasia, able to follow commands CT head unremarkable, no new traumatic fracture noted on the morales trauma scan Calcium level is normal No signs of UTI Nonspecific gallbladder wall thickening Abnormal transaminases Hold atorvastatin and zonisamide No signs of gallstones or biliary duct dilation Gallbladder ultrasound CT and pelvis unremarkable History of stroke with global aphasia Continue aspirin for now holding atorvastatin Continue levothyroxine dose Acute hypoxia: Likely in postictal phase currently doing well on 2 L nasal cannula, wean off oxygen to room air gradually intermediate resident, at baseline active, independent for daily activities, on mechanical soft diet DVT prophylaxis covered with Xarelto Full code PDMP PDMP Reviewed: Not Reviewed Attestations Medical Necessity Statement*: More than 2 midnights anticipated for monitoring and evaluation of A-fib RVR, likely breakthrough seizure with Gurmeet's paralysis and postictal confusion Diagnoses Generalized seizure disorder G40.309 Multi-infarct dementia F01.50 Aphasia as late effect of stroke I69.320 Transaminitis R74.01 Elevated liver enzymes R74.8 Respiratory failure with hypoxia J96.01 Chronicity: acute Gurmeet's paralysis G83.84 Atrial fibrillation with RVR I48.91
--- NOTE | 2024-12-27 23:29 | PC.NURSE ---
Unable to perform admission assessment at this time due to patient's difficulty answering questions from prior stroke.
[2024-12-28] VITALS (13 sets, daily range): BP systolic 112–145; BP diastolic 69–96; PULSE 102–115; RESP 14–20; TEMP 36.4–36.7; O2SAT 90–98
[2024-12-28] MEDS: levETIRAcetam 1,000 MG/100 ML PREMIX 400 MG IV (00:30)
[2024-12-28 01:02] LABS: Basophils % 0.2 %; Eosinophils % 0.2 %; Hematocrit 43.8 % (36-47); Lymphocytes # 1.4 10^3/uL (0.8-4.8); Lymphocytes % 21.1 %; Mean Corpuscular HGB Conc 30.6 g/dL (30-55); Mean Corpuscular Hemoglobin 28.9 pg (27-33); Mean Corpuscular Volume 94.6 fl (85-98); Mean Platelet Volume 12.7 fL (7.4-10.4); Monocytes # 0.6 10^3/uL (0.2-0.9); Monocytes % 8.6 %; Neutrophils # 4.63 10^3/uL (1.8-7.7); Neutrophils % 69.6 %; Nucleated Red Blood Cells % 0 %; Platelet Count 173 10^3/cmm (157-399); Red Blood Count 4.63 10^6/uL (3.85-5.65); Red Cell Distribution Width 14.7 % (12.1-15.1); White Blood Count 6.64 10^3/uL (3.29-11.43)
[2024-12-28 01:17] LABS: Albumin Level 3.4 g/dL (3.5-5.2); Alkaline Phosphatase 352 U/L (35-105); Blood Urea Nitrogen 19 mg/dL (8-23); Calcium 9.7 mg/dL (8.5-10.5); Carbon Dioxide 21 mmol/L (22-29); Chloride 109 mmol/L (98-107); Globulin 2.6 g/dL (1.3-4.6); Glucose 122 mg/dL (65-115); Osmolality Calculated 300 mOsm/kg (285-295); Sodium 143 mmol/L (136-145); Total Bilirubin 0.4 mg/dL (0.15-1.2)
[2024-12-28 01:18] LABS: Anion Gap 17.4 (5-19); Magnesium 1.9 mg/dL (1.7-2.3); Potassium 4.4 mmol/L (3.5-5.1); Troponin 5 6HR 38.26 ng/L (0-10)
[2024-12-28 01:22] LABS: Troponin 5 6HR Delta -6.74 ng/L (0-12)
[2024-12-28 01:30] LABS: Alanine Aminotransferase 1152 U/L (0-33)
[2024-12-28 01:37] LABS: Aspartate Amino Transferase 1006 U/L (0-32)
[2024-12-28 01:39] LABS: Prolactin 7.56 ng/mL (4.8-23.3)
--- NOTE | 2024-12-28 05:47 | PC.NURSE ---
Report was called to Gayatri CROWELL in [facility]; all questions and concerns were addressed at time of report.
--- NOTE | 2024-12-28 07:14 | PC.PHAR ---
patient is from [facility]
--- NOTE | 2024-12-28 07:15 | PC.NURSE ---
ASSUMED CARE OF PT AT 0700 FROM [facility].
--- NOTE | 2024-12-28 07:41 | PC.NURSE ---
Patient transferred from ED to [facility] via a bed at 0745. Patient was able to walk from the bed to floor bed. Janae watson is tamekaly running.
[2024-12-28] MEDS: aspirin 81 mg EC Tablet PO (08:50)
[2024-12-28] MEDS: pantoprazole 40 mg SDV IVP ×2 (08:50→17:21)
[2024-12-28] MEDS: levETIRAcetam 500 mg Tablet 750 MG PO ×2 (08:50→17:21)
[2024-12-28] MEDS: metoprolol tartrate 50 mg Tablet PO ×2 (08:51→17:21)
[2024-12-28] MEDS: rivaroxaban 10 mg Tablet 20 MG PO (08:51)
[2024-12-28] MEDS: levothyroxine 112 mcg Tablet PO (08:51)
[2024-12-28] MEDS: sennosides-docusate Tablet 1 TAB PO (08:51)
[2024-12-28] MEDS: lisinopril 20 mg Tablet PO (08:51)
[2024-12-28] MEDS: meropenem 1,000 mg SDV 1000 MG IVP ×2 (10:01→17:21)
[2024-12-28 10:10] LABS: Hepatitis A Antibody IgM Non-Reactive (Nonreactive); Hepatitis B Core IgM Non-Reactive (Nonreactive); Hepatitis B Surface Antigen Non-Reactive (Nonreactive); Hepatitis C Virus Antibody Non-Reactive (Nonreactive)
[2024-12-28] MEDS: dilTIAZem 30 mg Tablet PO ×2 (12:55→17:24)
--- NOTE | 2024-12-28 14:31 | P.PN_ITS ---
Subjective 2 Subjective: Patient was seen this morning, she has productive aphasia but can answer to yes or no questions, does complain of shortness of breath denies any chest pain, denies any abdominal pain Vitals/I&O/Wt Last Vital Signs Temp 97.6 F 12/28/24 11:16 Pulse 106 H 12/28/24 13:27 Resp 20 H 12/28/24 13:27 BP 119/79 12/28/24 11:16 Pulse Ox 93 12/28/24 13:27 O2 Del Method Nasal Cannula 12/28/24 13:27 O2 Flow Rate 2 12/28/24 13:27 12/27/24 12/28/24 12/28/24 22:59 06:59 14:59 Intake Total 100 / 100 60 / 60 Balance 100 / 100 60 / 60 Weight last 48 hrs Weight 81.647 kg Physical Exam 2 Const: COMMON NORMALS: no acute distress and patient oriented x3 Resp: COMMON NORMALS: normal respiratory effort, No retractions and No use of accessory muscles AUSCULTATION: crackles and wheezes Cardio: COMMON NORMALS: regular rate, regular rhythm, S1 normal heart sound present and S2 normal heart sound present RATE: regular rate RHYTHM: r egular rhythm HEART SOUNDS: S1 normal heart sound present and S2 normal heart sound present GI: COMMON NORMALS: Normal to inspection, nondistended, normoactive bowel sounds present and non-tender Extremity: COMMON NORMALS: no pedal edema Neuro: COMMON NORMALS: patient oriented x3 Psych: COMMON NORMALS: mental status grossly normal Data 12/28/24 00:49 12/28/24 00:49 A&P Assessment and plan (1) Generalized seizure disorder: (2) Multi-infarct dementia: (3) Aphasia as late effect of stroke: (4) Transaminitis: (5) Elevated liver enzymes: (6) Respiratory failure with hypoxia: Qualifiers: Chronicity: acute Qualified Code(s): J96.01 - Acute respiratory failure with hypoxia (7) Gurmeet's paralysis: (8) Atrial fibrillation with RVR: Plan Atrial fibrillation with rapid ventricle response Wean off Cardizem drip, to p.o. Cardizem continue her metoprolol and Xarelto Ground-level fall -No pain complaints Possible seizure continue p.o. Keppra dose Acute encephalopathy, resolving Quality able to comprehend my questions, she has global aphasia, able to follow commands CT head unremarkable, no new traumatic fracture noted on the morales trauma scan Calcium level is normal UTI, with history of ESBL, start meropenem Transaminitis Ultrasound gallbladder shows nonspecific gallbladder wall thickening, normal duplex of portal vein Hold atorvastatin and zonisamide Acute hep panel within normal limits, flu negative, COVID-19 negative Chronic mesenteric ischemia IMPRESSION: 1. 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 2. 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 History of stroke with global aphasia Continue aspirin for now holding atorvastatin Hypothyroidism Continue levothyroxine dose Acute hypoxia: Monitor, possible aspiration event, continue meropenem History of CVA, productive aphasia, right-sided deficit prison resident, at baseline active, independent for daily activities, on mechanical soft diet DVT prophylaxis covered with Xarelto Full code PDMP PDMP Reviewed: Not Reviewed Attestations 2 Medical Necessity Statement*: Patient requires hospitalization for atrial fibrillation with rapid response, acute encephalopathy, transaminitis, UTI Diagnoses Generalized seizure disorder G40.309 Multi-infarct dementia F01.50 Aphasia as late effect of stroke I69.320 Transaminitis R74.01 Elevated liver enzymes R74.8 Respiratory failure with hypoxia J96.01 Chronicity: acute Gurmeet's paralysis G83.84 Atrial fibrillation with RVR I48.91
--- NOTE | 2024-12-28 15:08 | PC.NURSE ---
Provider ordered to stop cardizem drip after giving the PO cardizem.
[2024-12-28] MEDS: fluconazole 100 mg Tablet PO (17:21)
[2024-12-29] VITALS (15 sets, daily range): BP systolic 107–137; BP diastolic 61–96; PULSE 59–119; RESP 16–32; TEMP 36.4–37.2; O2SAT 91–98
[2024-12-29] MEDS: dilTIAZem 30 mg Tablet PO ×3 (01:09→11:28)
[2024-12-29] MEDS: meropenem 1,000 mg SDV 1000 MG IVP ×3 (01:09→21:18)
[2024-12-29 04:20] LABS: Basophils % 0.6 %; Eosinophils # 0.1 10^3/uL (0.0-0.8); Eosinophils % 1.4 %; Lymphocytes # 0.9 10^3/uL (0.8-4.8); Lymphocytes % 14.6 %; Mean Corpuscular HGB Conc 30.2 g/dL (30-55); Mean Corpuscular Hemoglobin 28.7 pg (27-33); Mean Platelet Volume 12.9 fL (7.4-10.4); Monocytes # 0.5 10^3/uL (0.2-0.9); Monocytes % 8.2 %; Neutrophils # 4.72 10^3/uL (1.8-7.7); Neutrophils % 74.9 %; Nucleated Red Blood Cells % 0 %; Platelet Count 151 10^3/cmm (157-399); Red Blood Count 4.42 10^6/uL (3.85-5.65); Red Cell Distribution Width 14.8 % (12.1-15.1); White Blood Count 6.31 10^3/uL (3.29-11.43)
[2024-12-29 04:50] LABS: Albumin Level 3.1 g/dL (3.5-5.2); Alkaline Phosphatase 280 U/L (35-105); Anion Gap 12.9 (5-19); Aspartate Amino Transferase 361 U/L (0-32); Blood Urea Nitrogen 16 mg/dL (8-23); C Reactive Protein 31.9 mg/L (0.0-4.9); Calcium 9.4 mg/dL (8.5-10.5); Carbon Dioxide 25 mmol/L (22-29); Chloride 110 mmol/L (98-107); Globulin 2.4 g/dL (1.3-4.6); Glucose 152 mg/dL (65-115); Magnesium 1.8 mg/dL (1.7-2.3); Osmolality Calculated 302 mOsm/kg (285-295); Phosphorus 2.2 mg/dL (2.5-4.5); Potassium 3.9 mmol/L (3.5-5.1); Sodium 144 mmol/L (136-145); Total Bilirubin 0.4 mg/dL (0.15-1.2); Total Protein 5.5 g/dL (6.6-8.7)
[2024-12-29 04:56] LABS: NT Pro B Type Natriuretic Pept 10720 pg/mL (0-450)
[2024-12-29 05:06] LABS: Alanine Aminotransferase 751 U/L (0-33)
[2024-12-29] MEDS: levothyroxine 112 mcg Tablet PO (06:05)
[2024-12-29] MEDS: lisinopril 20 mg Tablet PO (09:00)
[2024-12-29] MEDS: FUROsemide 10 mg/mL SDV 4mL 40 MG IVP (09:00)
[2024-12-29] MEDS: metoprolol tartrate 50 mg Tablet PO ×2 (09:00→17:26)
[2024-12-29] MEDS: sennosides-docusate Tablet 1 TAB PO (09:00)
[2024-12-29] MEDS: rivaroxaban 10 mg Tablet 20 MG PO (09:00)
[2024-12-29] MEDS: aspirin 81 mg EC Tablet PO (09:00)
[2024-12-29] MEDS: levETIRAcetam 500 mg Tablet 750 MG PO ×2 (09:00→17:25)
[2024-12-29] MEDS: pantoprazole 40 mg SDV IVP ×2 (09:01→17:26)
--- NOTE | 2024-12-29 10:16 | PC.SOCIAL ---
IMM Update Pg. 2 of IMM updated. Copy provided at bedside.
--- NOTE | 2024-12-29 14:04 | P.PN_ITS ---
Subjective 2 Subjective: Patient was seen this morning, nursing staff at bedside, she is on 3 L, reports shortness of breath, no chest pain, no abdominal pain Vitals/I&O/Wt Last Vital Signs Temp 98.5 F 12/29/24 11:00 Pulse 100 12/29/24 11:00 Resp 22 H 12/29/24 11:00 BP 137/84 12/29/24 11:00 Pulse Ox 93 12/29/24 11:00 O2 Del Method Nasal Cannula 12/29/24 10:00 O2 Flow Rate 3 12/29/24 10:00 12/28/24 12/29/24 12/29/24 22:59 06:59 14:59 Intake Total 660 / 720 100 / 820 200 / 200 Output Total 0 / 0 300 / 300 1700 / 1700 Balance 660 / 720 -200 / 520 -1500 / -1500 Weight last 48 hrs Weight 81.42 kg Weight 81.647 kg Physical Exam 2 Const: COMMON NORMALS: no acute distress and patient oriented x3 Resp: COMMON NORMALS: normal respiratory effort, No retractions and No use of accessory muscles AUSCULTATION: crackles and wheezes Cardio: COMMON NORMALS: regular rate, regular rhythm, S1 normal heart sound present and S2 normal heart sound present RATE: regular rate RHYTHM: r egular rhythm HEART SOUNDS: S1 normal heart sound present and S2 normal heart sound present GI: COMMON NORMALS: Normal to inspection, nondistended, normoactive bowel sounds present and non-tender Extremity: COMMON NORMALS: no pedal edema Neuro: COMMON NORMALS: patient oriented x3 Psych: COMMON NORMALS: mental status grossly normal Data 12/29/24 03:17 12/29/24 03:17 Micro: Microbiology 12/27/24 20:39 Urine Culture - Preliminary Urine,Voided Gram Negative Rods A&P Assessment and plan (1) Generalized seizure disorder: (2) Multi-infarct dementia: (3) Aphasia as late effect of stroke: (4) Transaminitis: (5) Elevated liver enzymes: (6) Respiratory failure with hypoxia: Qualifiers: Chronicity: acute Qualified Code(s): J96.01 - Acute respiratory failure with hypoxia (7) Gurmeet's paralysis: (8) Atrial fibrillation with RVR: Plan Atrial fibrillation with rapid ventricle response Increase Cardizem to 60 p.o. every 6 hours continue her metoprolol and Xarelto Ground-level fall -No pain complaints Possible seizure continue p.o. Keppra dose Acute encephalopathy, resolving Quality able to comprehend my questions, she has global aphasia, able to follow commands CT head unremarkable, no new traumatic fracture noted on the morales trauma scan Calcium level is normal UTI, with history of ESBL, continue meropenem Transaminitis, LFTs are improving Ultrasound gallbladder shows nonspecific gallbladder wall thickening, normal duplex of portal vein Hold atorvastatin and zonisamide Acute hep panel within normal limits, flu negative, COVID-19 negative Chronic mesenteric ischemia IMPRESSION: 1. 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 2. 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 History of stroke with global aphasia Continue aspirin for now holding atorvastatin Hypothyroidism Continue levothyroxine dose Acute hypoxia: Monitor, possible aspiration event, continue meropenem History of CVA, productive aphasia, right-sided deficit custodial resident, at baseline active, independent for daily activities, on mechanical soft diet DVT prophylaxis covered with Xarelto Full code Plan for today increase Cardizem to 60 every 6 as heart rates are in the 120s, 1 dose IV diuresis continue meropenem follow urine cultures follow LFTs PDMP PDMP Reviewed: Not Reviewed Attestations 2 Medical Necessity Statement*: Patient requires hospitalization for atrial fibrillation, UTI, transaminitis, hypoxia Diagnoses Generalized seizure disorder G40.309 Multi-infarct dementia F01.50 Aphasia as late effect of stroke I69.320 Transaminitis R74.01 Elevated liver enzymes R74.8 Respiratory failure with hypoxia J96.01 Chronicity: acute Gurmeet's paralysis G83.84 Atrial fibrillation with RVR I48.91
[2024-12-29] MEDS: dilTIAZem 30 mg Tablet 60 MG PO ×2 (14:07→21:19)
--- NOTE | 2024-12-29 15:07 | ECG_ITS ---
[employer] [facility] Test Date: 2024-12-29 Pat Name: Gianluca Goode Department: Room: 102 Gender: Female Payroll Secretary: : 1945 Requested By: Meir Nunes Order Number: [id number] Jake MD: Bo Drummond M.D. Measurements Intervals [place] Rate: 112 P: 4 IN: 166 QRS: 46 QRSD: 96 T: 222 QT: 332 QTc: 454 Interpretive Statements ATRIAL FLUTTER WITH RAPID VENTRICULAR RATE INDETERMINATE AXIS ST DEVIATION AND MODERATE T-WAVE ABNORMALITY, CONSIDER ANTEROLATERAL ISCHEMIA [-0.1+ mV T-WAVE IN V3-V6] ST DEVIATION AND MODERATE T-WAVE ABNORMALITY, CONSIDER INFERIOR ISCHEMIA [-0.1+ mV T-WAVE IN II/aVF] Compared to ECG 12/28/2024 07:16:50 Indeterminate axis now present Myocardial infarct finding no longer present T-wave abnormality still present Possible ischemia still present Electronically Signed On 12-30-2024 19:30:54 QA DEVELOPER by Bo Drummond M.D. [email or web address]
[2024-12-29 20:57] LABS: Glucose Point of Care 203 mg/dL (70-110)
[2024-12-30] VITALS (25 sets, daily range): BP systolic 101–137; BP diastolic 59–91; PULSE 61–120; RESP 13–32; TEMP 36.6–36.8; O2SAT 91–96
[2024-12-30] MEDS: dilTIAZem 30 mg Tablet 60 MG PO ×2 (01:30→09:01)
[2024-12-30] MEDS: meropenem 1,000 mg SDV 1000 MG IVP ×3 (03:37→20:16)
[2024-12-30] MEDS: levothyroxine 112 mcg Tablet PO (06:29)
[2024-12-30 06:33] LABS: Basophils % 0.6 %; Eosinophils # 0.1 10^3/uL (0.0-0.8); Hematocrit 45.9 % (36-47); Lymphocytes # 0.9 10^3/uL (0.8-4.8); Lymphocytes % 13.9 %; Mean Corpuscular HGB Conc 30.5 g/dL (30-55); Mean Corpuscular Hemoglobin 28.7 pg (27-33); Mean Corpuscular Volume 94.1 fl (85-98); Mean Platelet Volume 12.5 fL (7.4-10.4); Monocytes # 0.7 10^3/uL (0.2-0.9); Neutrophils # 4.73 10^3/uL (1.8-7.7); Neutrophils % 73.2 %; Nucleated Red Blood Cells % 0 %; Platelet Count 151 10^3/cmm (157-399); Red Blood Count 4.88 10^6/uL (3.85-5.65); Red Cell Distribution Width 14.9 % (12.1-15.1); White Blood Count 6.47 10^3/uL (3.29-11.43)
[2024-12-30 07:04] LABS: Levetiracetam Immunoassy 59.3 mcg/mL (6.0-46.0)
[2024-12-30 07:07] LABS: Alanine Aminotransferase 627 U/L (0-33); Albumin Level 3.1 g/dL (3.5-5.2); Alkaline Phosphatase 257 U/L (35-105); Anion Gap 13.7 (5-19); Aspartate Amino Transferase 219 U/L (0-32); Blood Urea Nitrogen 14 mg/dL (8-23); C Reactive Protein 26.7 mg/L (0.0-4.9); Calcium 9.7 mg/dL (8.5-10.5); Carbon Dioxide 27 mmol/L (22-29); Chloride 108 mmol/L (98-107); Globulin 2.7 g/dL (1.3-4.6); Glucose 142 mg/dL (65-115); Magnesium 1.8 mg/dL (1.7-2.3); NT Pro B Type Natriuretic Pept 6809 pg/mL (0-450); Osmolality Calculated 303 mOsm/kg (285-295); Phosphorus 2.4 mg/dL (2.5-4.5); Potassium 3.7 mmol/L (3.5-5.1); Sodium 145 mmol/L (136-145); Total Bilirubin 0.3 mg/dL (0.15-1.2); Total Protein 5.8 g/dL (6.6-8.7)
[2024-12-30] MEDS: pantoprazole 40 mg SDV IVP ×2 (09:00→17:28)
[2024-12-30] MEDS: lisinopril 20 mg Tablet PO (09:00)
[2024-12-30] MEDS: levETIRAcetam 500 mg Tablet 750 MG PO ×2 (09:00→17:27)
[2024-12-30] MEDS: rivaroxaban 10 mg Tablet 20 MG PO (09:00)
[2024-12-30] MEDS: aspirin 81 mg EC Tablet PO (09:00)
[2024-12-30] MEDS: sennosides-docusate Tablet 1 TAB PO (09:01)
[2024-12-30] MEDS: metoprolol tartrate 50 mg Tablet PO ×2 (09:01→17:27)
[2024-12-30] MEDS: potassium chloride ER 20 mEq Tablet 40 MEQ PO (09:05)
[2024-12-30] MEDS: metOLazone 5 MG Tablet PO (09:05)
[2024-12-30] MEDS: FUROsemide 10 mg/mL SDV 4mL 40 MG IVP ×2 (09:05→20:17)
--- NOTE | 2024-12-30 13:16 | P.PN_ITS ---
Subjective 2 Subjective: Patient was examined this morning, she is alert, she can follow commands, has aphasia from her stroke, can answer basic yes/no questions, does report shortness of breath, no chest pain does report palpitations -Patient has developed A-fib with RVR, w ill stop Cardizem and switch her to amiodarone drip with bolus Vitals/I&O/Wt Last Vital Signs Temp 98.2 F 12/30/24 12:00 Pulse 120 H 12/30/24 12:00 Resp 20 H 12/30/24 12:00 BP 114/80 12/30/24 12:00 Pulse Ox 94 12/30/24 11:00 O2 Del Method Nasal Cannula 12/30/24 11:00 O2 Flow Rate 2 12/30/24 11:00 12/29/24 12/30/24 12/30/24 22:59 06:59 14:59 Intake Total 0 / 200 240 / 240 Output Total 850 / 2550 Balance -850 / -2350 0 / -2350 240 / 240 Weight last 48 hrs Weight 78.608 kg Weight 81.42 kg Physical Exam 2 Const: COMMON NORMALS: no acute distress ORIENTATION/CONSCIOUSNESS: Yes awake, Yes oriented to person and Yes oriented to place Resp: COMMON NORMALS: normal respiratory effort, No retractions and No use of accessory muscles AUSCULTATION: crackles Cardio: COMMON NORMALS: S1 normal heart sound present and S2 normal heart sound present RATE: tachycardic RHYTHM: abnormal rhythm HEART SOUNDS: S 1 normal heart sound present and S2 normal heart sound present GI: COMMON NORMALS: Normal to inspection, nondistended, normoactive bowel sounds present and non-tender Extremity: COMMON NORMALS: no pedal edema Neuro: SENSORIUM/ORIENTATION: Yes oriented to person and Yes oriented to place Psych: COMMON NORMALS: mental status grossly normal Data 12/30/24 06:27 12/30/24 06:27 Micro: Microbiology 12/27/24 20:39 Urine Culture - Final Urine,Voided Escherichia coli esbl A&P Assessment and plan (1) Generalized seizure disorder: (2) Multi-infarct dementia: (3) Aphasia as late effect of stroke: (4) Transaminitis: (5) Elevated liver enzymes: (6) Respiratory failure with hypoxia: Qualifiers: Chronicity: acute Qualified Code(s): J96.01 - Acute respiratory failure with hypoxia (7) Gurmeet's paralysis: (8) Atrial fibrillation with RVR: (9) Acute exacerbation of CHF (congestive heart failure): Qualifiers: Heart failure type: unspecified Qualified Code(s): I50.9 - Heart failure, unspecified Plan Atrial fibrillation with rapid ventricle response Stop Cardizem, switch to amiodarone continue her metoprolol and Xarelto Ground-level fall -No pain complaints Possible seizure continue p.o. Keppra dose Acute encephalopathy, resolving Quality able to comprehend my questions, she has global aphasia, able to follow commands CT head unremarkable, no new traumatic fracture noted on the morales trauma scan Calcium level is normal UTI, with history of ESBL, urine culture showing ESBL E. coli, continue meropenem, will likely need a total of 7 days of IV antibiotics Transaminitis, LFTs are improving Ultrasound gallbladder shows nonspecific gallbladder wall thickening, normal duplex of portal vein Hold atorvastatin and zonisamide Acute hep panel within normal limits, flu negative, COVID-19 negative Chronic mesenteric ischemia IMPRESSION: 1. 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 2. 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 History of stroke with global aphasia Continue aspirin for now holding atorvastatin Hypothyroidism Continue levothyroxine dose Acute hypoxia: Secondary to fluid overload, diastolic CHF exacerbation IV diuresis with Lasix today History of CVA, productive aphasia, right-sided deficit care home resident, at baseline active, independent for daily activities, on mechanical soft diet DVT prophylaxis covered with Xarelto Full code Plan for today stop Cardizem drip switch to amiodarone, with bolus, due to persistent A-fib with RVR, urine culture showing ESBL E. coli will need a total of 7 days of IV antibiotics, she is also fluid overloaded we will give her 2 doses of IV Lasix with metolazone, CHF exacerbation PDMP PDMP Reviewed: Not Reviewed Attestations 2 Medical Necessity Statement*: Patient requires hospitalization for A-fib with RVR, fluid overload, hypoxia, CHF Diagnoses Generalized seizure disorder G40.309 Multi-infarct dementia F01.50 Aphasia as late effect of stroke I69.320 Transaminitis R74.01 Elevated liver enzymes R74.8 Respiratory failure with hypoxia J96.01 Chronicity: acute Gurmeet's paralysis G83.84 Atrial fibrillation with RVR I48.91 Acute exacerbation of CHF (congestive heart failure) I50.9 Heart failure type: unspecified
[2024-12-30] MEDS: amiodarone 150 MG/100 ML PREMIX 400 MG IV (13:45)
[2024-12-31] VITALS (25 sets, daily range): BP systolic 110–133; BP diastolic 80–97; PULSE 94–117; RESP 7–29; TEMP 36.5–36.9; O2SAT 89–100; BMI 28.5
[2024-12-31] MEDS: meropenem 1,000 mg SDV 1000 MG IVP ×3 (03:58→19:34)
[2024-12-31 05:37] LABS: Basophils % 0.7 %; Eosinophils # 0.2 10^3/uL (0.0-0.8); Eosinophils % 3.1 %; Hematocrit 45.6 % (36-47); Lymphocytes # 1.5 10^3/uL (0.8-4.8); Lymphocytes % 24.2 %; Mean Corpuscular HGB Conc 30.9 g/dL (30-55); Mean Corpuscular Hemoglobin 28.5 pg (27-33); Mean Corpuscular Volume 92.3 fl (85-98); Mean Platelet Volume 12.2 fL (7.4-10.4); Monocytes # 0.7 10^3/uL (0.2-0.9); Monocytes % 11.7 %; Neutrophils # 3.64 10^3/uL (1.8-7.7); Nucleated Red Blood Cells % 0 %; Platelet Count 154 10^3/cmm (157-399); Red Blood Count 4.94 10^6/uL (3.85-5.65); Red Cell Distribution Width 14.8 % (12.1-15.1); White Blood Count 6.07 10^3/uL (3.29-11.43)
[2024-12-31 05:54] LABS: Alanine Aminotransferase 549 U/L (0-33); Albumin Level 3.3 g/dL (3.5-5.2); Alkaline Phosphatase 236 U/L (35-105); Anion Gap 11.5 (5-19); Aspartate Amino Transferase 162 U/L (0-32); Blood Urea Nitrogen 19 mg/dL (8-23); C Reactive Protein 18.9 mg/L (0.0-4.9); Carbon Dioxide 33 mmol/L (22-29); Chloride 97 mmol/L (98-107); Creatinine Clr Calc Pharmacy 60.7238; Globulin 2.6 g/dL (1.3-4.6); Glucose 142 mg/dL (65-115); Magnesium 1.7 mg/dL (1.7-2.3); Osmolality Calculated 291 mOsm/kg (285-295); Phosphorus 2.8 mg/dL (2.5-4.5); Potassium 3.5 mmol/L (3.5-5.1); Sodium 138 mmol/L (136-145); Total Bilirubin 0.3 mg/dL (0.15-1.2); Total Protein 5.9 g/dL (6.6-8.7)
[2024-12-31 06:06] LABS: NT Pro B Type Natriuretic Pept 6539 pg/mL (0-450)
[2024-12-31] MEDS: levothyroxine 112 mcg Tablet PO (06:15)
[2024-12-31] MEDS: aspirin 81 mg EC Tablet PO (08:34)
[2024-12-31] MEDS: rivaroxaban 10 mg Tablet 20 MG PO (08:35)
[2024-12-31] MEDS: levETIRAcetam 500 mg Tablet 750 MG PO ×2 (08:35→17:42)
[2024-12-31] MEDS: lisinopril 20 mg Tablet PO (08:35)
[2024-12-31] MEDS: pantoprazole 40 mg SDV IVP ×2 (08:35→17:42)
[2024-12-31] MEDS: sennosides-docusate Tablet 1 TAB PO (08:36)
[2024-12-31] MEDS: FUROsemide 10 mg/mL SDV 4mL 40 MG IVP (08:48)
[2024-12-31] MEDS: metOLazone 5 MG Tablet PO (08:48)
[2024-12-31] MEDS: metoprolol tartrate 50 mg Tablet 75 MG PO ×2 (08:49→17:42)
--- NOTE | 2024-12-31 14:22 | P.PN_ITS ---
Subjective 2 Subjective: Patient was seen this morning, is on 2 L, heart rates in the 110s, atrial fibrillation, discussed increasing her metoprolol to 75 twice daily, transitioning her to p.o. amiodarone monitoring her heart rates Vitals/I&O/Wt Last Vital Signs Temp 98.5 F 12/31/24 12:00 Pulse 115 H 12/31/24 12:00 Resp 18 12/31/24 12:00 BP 111/80 12/31/24 12:00 Pulse Ox 94 12/31/24 12:00 O2 Del Method Nasal Cannula 12/31/24 12:00 O2 Flow Rate 2 12/31/24 12:00 12/30/24 12/31/24 12/31/24 22:59 07:59 14:59 Intake Total 320 / 780 308.093 / 308.093 Output Total 1250 / 2900 950 / 3850 Balance -930 / -2120 -950 / -3070 308.093 / 308.093 Weight last 48 hrs Weight 77.791 kg Weight 78.608 kg Physical Exam 2 Const: COMMON NORMALS: no acute distress ORIENTATION/CONSCIOUSNESS: Yes awake, Yes oriented to person and Yes oriented to place Resp: COMMON NORMALS: normal respiratory effort, No retractions and No use of accessory muscles AUSCULTATION: crackles Cardio: COMMON NORMALS: regular rate, regular rhythm, S1 normal heart sound present and S2 normal heart sound present RATE: regular rate RHYTHM: r egular rhythm HEART SOUNDS: S1 normal heart sound present and S2 normal heart sound present GI: COMMON NORMALS: Normal to inspection, nondistended, normoactive bowel sounds present and non-tender Extremity: COMMON NORMALS: no pedal edema Neuro: SENSORIUM/ORIENTATION: Yes oriented to person and Yes oriented to place Psych: COMMON NORMALS: mental status grossly normal Data 12/31/24 05:28 12/31/24 05:28 Micro: Microbiology 12/27/24 20:39 Urine Culture - Final Urine,Voided Escherichia coli esbl A&P Assessment and plan (1) Generalized seizure disorder: (2) Multi-infarct dementia: (3) Aphasia as late effect of stroke: (4) Transaminitis: (5) Elevated liver enzymes: (6) Respiratory failure with hypoxia: Qualifiers: Chronicity: acute Qualified Code(s): J96.01 - Acute respiratory failure with hypoxia (7) Gurmeet's paralysis: (8) Atrial fibrillation with RVR: (9) Acute exacerbation of CHF (congestive heart failure): Qualifiers: Heart failure type: unspecified Qualified Code(s): I50.9 - Heart failure, unspecified Plan Atrial fibrillation with rapid ventricle response Switch from amiodarone drip to p.o. amiodarone Increase metoprolol to 75 twice daily Xarelto Ground-level fall -No pain complaints Possible seizure continue p.o. Keppra dose Acute encephalopathy, resolving Quality able to comprehend my questions, she has global aphasia, able to follow commands CT head unremarkable, no new traumatic fracture noted on the morales trauma scan Calcium level is normal UTI, with history of ESBL, urine culture showing ESBL E. coli, continue meropenem, will likely need a total of 7 days of IV antibiotics, stop date January 05 Transaminitis, LFTs are improving Ultrasound gallbladder shows nonspecific gallbladder wall thickening, normal duplex of portal vein Hold atorvastatin and zonisamide Acute hep panel within normal limits, flu negative, COVID-19 negative Chronic mesenteric ischemia IMPRESSION: 1. 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 2. 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 History of stroke with global aphasia Continue aspirin for now holding atorvastatin Hypothyroidism Continue levothyroxine dose Acute hypoxia: Secondary to fluid overload, diastolic CHF exacerbation IV diuresis with Lasix today History of CVA, productive aphasia, right-sided deficit [facility], at baseline active, independent for daily activities, on mechanical soft diet DVT prophylaxis covered with Xarelto Full code Plan for today transition off amiodarone drip, increase metoprolol, IV diuresis, continue meropenem for ESBL E. coli she will need a total of 7 days stop date January 05 PDMP PDMP Reviewed: Not Reviewed Attestations 2 Medical Necessity Statement*: Patient requires hospitalization for for ESBL E. coli UTI, fluid overload, A-fib Diagnoses Generalized seizure disorder G40.309 Multi-infarct dementia F01.50 Aphasia as late effect of stroke I69.320 Transaminitis R74.01 Elevated liver enzymes R74.8 Respiratory failure with hypoxia J96.01 Chronicity: acute Gurmeet's paralysis G83.84 Atrial fibrillation with RVR I48.91 Acute exacerbation of CHF (congestive heart failure) I50.9 Heart failure type: unspecified
[2024-12-31] MEDS: amiodarone 200 mg Tablet 400 MG PO (17:02)
[2025-01-01] VITALS (28 sets, daily range): BP systolic 95–140; BP diastolic 73–89; PULSE 92–115; RESP 10–28; TEMP 36.5–36.9; O2SAT 91–97
[2025-01-01] MEDS: meropenem 1,000 mg SDV 1000 MG IVP ×3 (04:32→19:47)
[2025-01-01 04:35] LABS: Basophils # 0.1 10^3/uL (0.0-0.1); Basophils % 0.8 %; Eosinophils # 0.2 10^3/uL (0.0-0.8); Eosinophils % 3.2 %; Hematocrit 53.7 % (36-47); Lymphocytes # 1.6 10^3/uL (0.8-4.8); Lymphocytes % 21.9 %; Mean Corpuscular HGB Conc 30.4 g/dL (30-55); Mean Corpuscular Hemoglobin 28.6 pg (27-33); Mean Corpuscular Volume 94.4 fl (85-98); Mean Platelet Volume 12.3 fL (7.4-10.4); Monocytes # 0.8 10^3/uL (0.2-0.9); Monocytes % 10.9 %; Neutrophils % 62.9 %; Nucleated Red Blood Cells % 0 %; Platelet Count 109 10^3/cmm (157-399); Red Blood Count 5.69 10^6/uL (3.85-5.65); Red Cell Distribution Width 14.9 % (12.1-15.1); White Blood Count 7.16 10^3/uL (3.29-11.43)
[2025-01-01] MEDS: levothyroxine 112 mcg Tablet PO (06:07)
[2025-01-01 06:10] LABS: Alanine Aminotransferase 405 U/L (0-33); Albumin Level 3.3 g/dL (3.5-5.2); Alkaline Phosphatase 238 U/L (35-105); Anion Gap 15.1 (5-19); Aspartate Amino Transferase 89 U/L (0-32); Blood Urea Nitrogen 22 mg/dL (8-23); Calcium 10.3 mg/dL (8.5-10.5); Carbon Dioxide 32 mmol/L (22-29); Chloride 96 mmol/L (98-107); Globulin 3.1 g/dL (1.3-4.6); Glucose 168 mg/dL (65-115); NT Pro B Type Natriuretic Pept 6318 pg/mL (0-450); Osmolality Calculated 297 mOsm/kg (285-295); Potassium 3.1 mmol/L (3.5-5.1); Sodium 140 mmol/L (136-145); Total Bilirubin 0.4 mg/dL (0.15-1.2); Total Protein 6.4 g/dL (6.6-8.7)
[2025-01-01] MEDS: aspirin 81 mg EC Tablet PO (08:42)
[2025-01-01] MEDS: amiodarone 200 mg Tablet 400 MG PO ×2 (08:42→18:20)
[2025-01-01] MEDS: rivaroxaban 10 mg Tablet 20 MG PO (08:42)
[2025-01-01] MEDS: potassium chloride ER 20 mEq Tablet 40 MEQ PO (08:43)
[2025-01-01] MEDS: levETIRAcetam 500 mg Tablet 750 MG PO ×2 (08:43→18:19)
[2025-01-01] MEDS: metoprolol tartrate 50 mg Tablet 75 MG PO ×2 (08:43→18:20)
[2025-01-01] MEDS: FUROsemide 10 mg/mL SDV 4mL 40 MG IVP (08:44)
[2025-01-01] MEDS: pantoprazole 40 mg SDV IVP ×2 (08:44→18:19)
[2025-01-01] MEDS: sennosides-docusate Tablet 1 TAB PO (08:44)
--- NOTE | 2025-01-01 09:28 | PC.SOCIAL ---
IMM Update Pg. 2 of IMM updated, copy provided at bedside.
[2025-01-01] MEDS: dilTIAZem 30 mg Tablet PO ×3 (09:30→19:47)
--- NOTE | 2025-01-01 12:43 | PM.PN ---
Subjective Subjective: Patient was seen this morning, she is alert to person, she can follow commands, denies any shortness of breath no chest pain I did detailed discussion with her she continues to have heart rates as high as 120 A-fib, will Cardizem, if her heart rates do not respond, we will consult cardiology, as she might require cardioversion versus antiarrhythmic, she voices understanding Vitals/I&O/Wt Last Vital Signs Temp 98.1 F 01/01/25 11:50 Pulse 108 H 01/01/25 11:50 Resp 20 H 01/01/25 11:50 BP 103/89 01/01/25 11:50 Pulse Ox 97 01/01/25 11:50 O2 Del Method Nasal Cannula 01/01/25 11:50 O2 Flow Rate 2 01/01/25 11:50 12/31/24 01/01/25 01/01/25 22:59 06:59 14:59 Intake Total 200.000 / 508.093 460 / 460 Output Total 800 / 2450 400 / 400 Balance -600.000 / -1941.907 60 / 60 Weight last 48 hrs Weight 74.525 kg Weight 77.791 kg Physical Exam Const: COMMON NORMALS: no acute distress ORIENTATION/CONSCIOUSNESS: Yes awake and Yes oriented to person; not oriented to place and not oriented to time Neck/C-Spine: COMMON NORMALS: no JVD Resp: COMMON NORMALS: normal respiratory effort, No retractions, No use of accessory muscles and clear to auscultation bilaterally AUSCULTATION: clear to auscultation bilaterally Cardio: COMMON NORMALS: no JVD, S1 normal heart sound present and S2 normal heart sound present RATE: tachycardic RHYTHM: abnormal rhythm HEART SOUNDS: S1 normal heart sound present and S2 normal heart sound present GI: COMMON NORMALS: Normal to inspection, nondistended, normoactive bowel sounds present and non-tender Extremity: COMMON NORMALS: no pedal edema Neuro: SENSORIUM/ORIENTATION: Yes oriented to person, No oriented to place and No oriented to time Psych: COMMON NORMALS: mental status grossly normal Data 01/01/25 03:46 01/01/25 05:17 A&P Assessment and plan (1) Generalized seizure disorder: (2) Multi-infarct dementia: (3) Aphasia as late effect of stroke: (4) Transaminitis: (5) Elevated liver enzymes: (6) Respiratory failure with hypoxia: Qualifiers: Chronicity: acute Qualified Code(s): J96.01 - Acute respiratory failure with hypoxia (7) Gurmeet's paralysis: (8) Atrial fibrillation with RVR: (9) Acute exacerbation of CHF (congestive heart failure): Qualifiers: Heart failure type: unspecified Qualified Code(s): I50.9 - Heart failure, unspecified Plan Atrial fibrillation with rapid ventricle response Switch from amiodarone drip to p.o. amiodarone Increase metoprolol to 75 twice daily Added Cardizem, cardiology consulted Xarelto Ground-level fall -No pain complaints Possible seizure continue p.o. Keppra dose Acute encephalopathy, resolving Quality able to comprehend my questions, she has global aphasia, able to follow commands CT head unremarkable, no new traumatic fracture noted on the morales trauma scan Calcium level is normal UTI, with history of ESBL, urine culture showing ESBL E. coli, continue meropenem, will likely need a total of 7 days of IV antibiotics, stop date January 04, will discuss with case management, she will ertapenem 1 g IV every 24 hours Transaminitis, LFTs are improving Ultrasound gallbladder shows nonspecific gallbladder wall thickening, normal duplex of portal vein Hold atorvastatin and zonisamide Acute hep panel within normal limits, flu negative, COVID-19 negative Chronic mesenteric ischemia IMPRESSION: 1. 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 2. 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 History of stroke with global aphasia Continue aspirin for now holding atorvastatin Hypothyroidism Continue levothyroxine dose Acute hypoxia: Secondary to fluid overload, diastolic CHF exacerbation, -6.7 L, 1 dose IV Lasix 40 mg History of CVA, productive aphasia, right-sided deficit [facility] resident, at baseline active, independent for daily activities, on mechanical soft diet DVT prophylaxis covered with Xarelto Full code Plan for today added Cardizem for heart rate control, consulted cardiology, continue meropenem PDMP PDMP Reviewed: Not Reviewed Attestations Medical Necessity Statement*: Patient requires hospitalization for A-fib with RVR, ESBL E. coli UTI Diagnoses Generalized seizure disorder G40.309 Multi-infarct dementia F01.50 Aphasia as late effect of stroke I69.320 Transaminitis R74.01 Elevated liver enzymes R74.8 Respiratory failure with hypoxia J96.01 Chronicity: acute Gurmeet's paralysis G83.84 Atrial fibrillation with RVR I48.91 Acute exacerbation of CHF (congestive heart failure) I50.9 Heart failure type: unspecified
--- NOTE | 2025-01-01 12:56 | ECG_ITS ---
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1945 Requested By: Sienna Russell Order Number: [id number] Reading MD: AMELIA ARGUETA Measurements Intervals [place] Rate: 111 P: 0 MN: 0 QRS: -23 QRSD: 95 T: 146 QT: 382 QTc: 520 Interpretive Statements ATRIAL FLUTTER/TACHYCARDIA WITH RAPID VENTRICULAR RESPONSE LEFT VENTRICULAR HYPERTROPHY AND ST-T CHANGE [VOLTAGE CRITERIA PLUS ST/T ABNORMALITY] POSSIBLE SEPTAL MYOCARDIAL INFARCTION , PROBABLY OLD [30 ms Q WAVE IN V1/V2] Compared to ECG 12/29/2024 15:42:13 Left ventricular hypertrophy now present ST (T wave) deviation now present Myocardial infarct finding now present Indeterminate axis no longer present T-wave abnormality no longer present Possible ischemia no longer present Electronically Signed On 01-01-2025 22:19:49 CDT by AMELIA ARGUETA [email or web address]
--- NOTE | 2025-01-01 12:59 | P.CONIM_ITS ---
<Statement entered by Bo Drummond M.D - 01/13/25 09:24> Patient was evaluated and cared for in conjunction with an advanced practice practitioner. I personally examined the patient and reviewed the chart and all pertinent data including imaging, telemetry, and laboratory results. I discussed the patient in detail with the advanced practice practitioner. Please see their note for complete H&P testing result and agreed upon plan of care for the patient. Heart rates still fluctuating. GENERAL: Patient is alert, awake and oriented x3. HEART: Irregularly irregular S1 and S2. No murmur, rub or gallop. LUNGS: Clear to auscultate bilaterally. CENTRAL NERVOUS SYSTEM: Grossly nonfocal. EXTREMITIES: Lower extremities with out edema bilaterally. Assessment and plan Atrial fibrillation with rapid ventricle response Cardiomyopathy CHF diastolic type Continus amiodarone, metoprolol and cardizem. Will add digoxin if heart rate not controlled. If does not convert to sinus rhythm over 1-2 days, plan for WEI/ Cardioversion Providers/Reason For Consult 2 Consulting Physician/Specialty*: Dr. Drummond Reason for Consult*: Afib RVR Requesting Physician: Dr. Nunes Attending Physician: Meir Nunes MD Primary Care Provider: STEFANI Villaseñor History of Present Illness History of Present Illness Gianluca Goode is a 79 year old female With a history of CVA with expressive aphasia, dementia, type 2 diabetes, systolic heart failure, A-fib, and seizures who presented to the ER via ambulance from a senior care due to a fall.At the time of the fall she was found to be in respiratory distress. CT of the head was negative for acute findings. Last echocardiogram in October Showed ejection fraction of 35%.She has had over 6 L negative over 24 hours. She appears euvolemic at this time. Patient's heart rate was around 142 the day of admission. EKG was done that showed A-fib RVR.Patient is taking Xarelto for stroke prevention.At this time she appears sinus tach he but could be in a flutter. Will get an EKG to confirm.She reports chronic dizziness but denies any chest pain or shortness of breath at this time. Currently she is taking amiodarone 400 twice daily. Yesterday metoprolol was increased to 75 mg p.o. twice daily and blood pressure is soft. Diltiazem was started today at 30 mg p.o. every 6 hours. Current heart rate is maintaining around 108-110. Kidney function is normal. Liver function is elevated but improving. Probnp elevated at 6318 but improving. She has gotten 40 mg IV lasix today. Potassium 3. This is being replaced. Medications/Allergies Home Medications ?Medication ?Instructions ?Recorded ?Confirmed ?Last Taken ?Type aspirin 81 mg tablet,delayed 81 mg PO DAILY@0800 #60 t abs 03/14/24 12/28/24 10/25/24 Rx release (Adult Low Dose Aspirin) pantoprazole 40 mg tablet,delayed 40 mg PO QAM 4 12/28/24 10/25/24 History release aluminum-mag hydroxide-simethicone 10 ml PO Q4H PRN Co nstipation 10/26/24 12/28/24 Unknown History 200 mg-200 mg-20 mg/5 mL oral susp docusate sodium 100 mg capsule 100 mg PO BID 10/26/24 12/28/24 10/26/24 History metoprolol tartrate 50 mg tablet 50 mg PO BID 10/26/24 12/28/24 Unknown History rivaroxaban 20 mg tablet (Xarelto) 20 mg PO DAILY 12/1912/28/24 10/26/24 History venlafaxine 150 mg 150 mg PO QPM 10/26/2412/2810/25/24 History capsule,extended release 24 hr zonisamide 100 mg capsule 200 mg PO QPM 10/26/2412/28 Unknown History zonisamide 100 mg capsule 300 mg PO DAILY 10/26/2404/18 Unknown History atorvastatin 40 mg tablet 80 mg (2 x 40 mg) PO DAILY # 60 tabs 10/27/24 12/28/24 Unknown Rx levetiracetam 500 mg tablet 750 mg (1.5 x 500 mg) PO B ID #90 10/27/24 12/28/24 Unknown Rx tabs levothyroxine 112 mcg tablet 112 mcg PO DAILY #30 tabs 10/27/24 12/28/24 Unknown Rx ondansetron HCl 4 mg tablet 4 mg PO Q4H 11/24/2412/28 Unknown History acetaminophen 500 mg tablet 500 mg PO BID PRN Pain 04/1812/28/24 Unknown History bisacodyl 10 mg rectal suppository 10 mg VT DAILY PRN Constipation 12/28/24 12/28/24 Unknown History (Dulcolax (bisacodyl)) magnesium hydroxide 400 mg/5 mL 30 ml PO DAILY PRN Con stipation 12/28/24 12/28/24 Unknown History oral suspension (Milk of Magnesia) miconazole nitrate 2 % topical 1 spray topical TID 04/1812/28/24 Unknown History spray powder diltiazem HCl 60 mg tablet 60 mg PO Q12H 30 days #60 t abs 12/29/24 Unknown Rx (Cardizem) lisinopril 40 mg tablet 20 mg (1/2 x 40 mg) PO DAILY #60 12/29/24 12/28/24 Unknown Rx tabs nitrofurantoin 100 mg PO BID 7 days #14 cap s 12/29/24 Unknown Rx monohydrate/macrocrystals 100 mg capsule (Macrobid) Allergies Allergy/AdvReac Type Severity Reaction Status Date / Time Penicillins Allergy Unknown Unknown Verified 12/27/24 18:59 tetanus and diphtheria Allergy Unknown Verified 12/27/24 18:59 toxoids morphine AdvReac Intermediate ADR-Confusi Verified 12/27/24 18:59 on penicillin G procaine AdvReac unknown Verified 12/27/24 18:59 Current Medications Generic Name Dose Route Start Last Admin Trade Name Freq PRN Reason Stop Dose Admin Amiodarone HCl 400 mg 12/31/24 14:25 01/01/25 08:42 Amiodarone 200 Mg Tablet PO 400 mg BID ART Administration Aspirin 81 mg 12/28/24 08:00 01/01/25 08:42 Aspirin 81 Mg Ec Tablet PO 81 mg DAILY@0800 ART Administration Diltiazem HCl 30 mg 01/01/25 08:15 01/01/25 09:30 Diltiazem 30 Mg Tablet PO 30 mg Q6H ART Administration Levetiracetam 750 mg 12/28/24 09:00 01/01/25 08:43 Levetiracetam 500 Mg Tablet PO 750 mg BID ART Administration Levothyroxine Sodium 112 mcg 12/28/24 07:00 01/01/25 06:07 Levothyroxine 112 Mcg Tablet PO 112 mcg ACBREAKFAST ART Administration Meropenem 1,000 mg 12/28/24 09:00 01/01/25 11:41 Meropenem 1,000 Mg Sdv IVP 1,000 mg Q8H ART Administration Protocol Metoprolol Tartrate 75 mg 12/31/24 08:34 01/01/25 08:43 Metoprolol Tartrate 50 Mg Tablet PO 75 mg BID ART Administration Pantoprazole Sodium 40 mg 12/28/24 09:00 01/01/25 08:44 Pantoprazole 40 Mg Sdv IVP 40 mg BID ART Administration Rivaroxaban 20 mg 12/28/24 09:00 01/01/25 08:42 Rivaroxaban 10 Mg Tablet PO 20 mg DAILY ART Administration Senna/Docusate Sodium 1 tab 12/28/24 09:00 01/01/25 08:44 Sennosides-Docusate Tablet PO 1 tab DAILY ART Administration PFSH Acute 2 PFSH: Medical History CVA (cerebral vascular accident) UTI (urinary tract infection) Hypotension Aphasia Multiple falls Altered mental status Acute cystitis Hypersomnia TIA (transient ischemic attack) Recurrent UTI Medication noncompliance due to cognitive impairment Need for assistance with personal care Need for assistance due to reduced mobility Mild cognitive impairment with memory loss Oxygen dependent ANGIE (acute kidney injury) Hypertension Transient cerebral ischemia Chronic migraine without aura, intractable, with status migrainosus GERD (gastroesophageal reflux disease) 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) Dementia Obstructive sleep apnea Sleep apnea Type 2 diabetes mellitus Tachy-martin syndrome Non-insulin dependent diabetes mellitus -A1c (12/2019): 8.3 -Accucheks, ISS, hypoglycemia precautions -consistent carb diet as tolerated -takes metformin at home, can resume on d/c Drug-induced bradycardia Digoxin was discontinued along beta-alexandrea Atrial flutter Diastolic heart failure Generalized epilepsy CHF (congestive heart failure) Atrial fibrillation Severe obstructive sleep apnea Hypothyroidism Depressed Atrial dysrhythmia Diabetes 1.5, managed as type 2 Sleep apnea in adult Stroke due to embolism of left middle cerebral artery -prior hx of L MCA CVA in 05/2019; did not receive tPA -has been f/u with Dr. Randall -attributed to atrial fibrillation -on ASA, statin, AC with Eliquis -has residual cognitive impairment Seizure Heart failure Paroxysmal A-fib Surgical History Status post cardiac pacemaker procedure No pertinent past surgical history Family History Sister Diabetes Father Heart disease Mother Heart disease Social History Smoking and tobacco/nicotine status: never used tobacco/nicotine Alcohol intake: never Substance/Drug Use: never Vitals/I&O/Wt Last Vital Signs Temp 98.1 F 01/01/25 11:50 Pulse 108 H 01/01/25 11:50 Resp 20 H 01/01/25 11:50 BP 103/89 01/01/25 11:50 Pulse Ox 97 01/01/25 11:50 O2 Del Method Nasal Cannula 01/01/25 11:50 O2 Flow Rate 2 01/01/25 11:50 12/31/24 01/01/25 01/01/25 22:59 06:59 14:59 Intake Total 200.000 / 508.093 460 / 460 Output Total 800 / 2450 400 / 400 Balance -600.000 / -1941.907 60 / 60 Weight last 48 hrs Weight 164 lb 4.8 oz Weight 171 lb 8 oz Physical Exam 2 Narrative: General: No apparent distress, healthy appearing, well nourished HENMT: normoceophalic Muskuloskeletal: uses walker for ambulation Respiratory: Normal respiratory effort, clear to auscultation bilaterally throughout all lung robles, no use of accessory muscles Cardio: No JVD, regular rate, regular rhythm, S1 S2 normal, no murmurs, peripheral pulses 2+ radial palpated bilaterally GI: Normal to inspection, nondistended Extremities: Full ROM, normal, normal capillary refill, no cyanosis or edema Neuro: Alert and oriented x4, aphasia present, baseline for patient Psych: Affect normal, denies suicidal ideation, mental status grossly normal Skin: No rashes or lesions noted, no wounds Data 01/01/25 03:46 01/01/25 05:17 A&P Assessment and plan (1) Atrial fibrillation with RVR: (2) Cardiomyopathy: Qualifiers: Cardiomyopathy type: unspecified Qualified Code(s): I42.9 - Cardiomyopathy, unspecified (3) Heart failure: Qualifiers: Heart failure chronicity: acute on chronic Heart failure type: systolic Qualified Code(s): I50.23 - Acute on chronic systolic (congestive) heart failure (4) Elevated liver enzymes: Plan At this time, patient's heart rate is improved. Will obtain EKG to verify current rhythm. Recommend continue Metoprolol at 75 mg BID, continue Amiodarone 400 bid, continue cardizem 30 mg q6. Continue Xarelto for stroke prevention. Will need to carefully monitor liver function. Patient has just started Cardizem today. If she does not respond by tomorrow, may consider giving her digoxin. At this time, she appears well compensated. No indications for urgent cardioversion at this time. Further recommendations to follow after EKG. Thank you, Dr. Nunes, for allowing us to care for this very pleasant 79 year old female. PDMP PDMP Reviewed: Not Reviewed Consult Attestations 2 Medical Necessity Statement: Deferred to primary. Coding Level of Care Code Acute Code for [facility] Fwd Diagnoses Atrial fibrillation with RVR I48.91 Cardiomyopathy, unspecified type I42.9 Cardiomyopathy type: unspecified Acute on chronic systolic heart failure I50.23 Heart failure chronicity: acute on chronic Heart failure type: systolic Elevated liver enzymes R74.8
--- NOTE | 2025-01-01 14:49 | ECG_ITS ---
[employer] Test Date: 2025-01-01 Pat Name: Gianluca Goode Department: Room: 102 Gender: Female [employer]: : [id number] Requested By: Meir Nunes Order Number: [id number] Reading MD: AMELIA ARGUETA Measurements Intervals Mason Rate: 111 P: 0 MT: 0 QRS: -12 QRSD: 100 T: 157 QT: 388 QTc: 528 Interpretive Statements ATRIAL FLUTTER/TACHYCARDIA WITH RAPID VENTRICULAR RESPONSE LEFT VENTRICULAR HYPERTROPHY AND ST-T CHANGE [VOLTAGE CRITERIA PLUS ST/T ABNORMALITY] POSSIBLE SEPTAL MYOCARDIAL INFARCTION , PROBABLY OLD [30 ms Q WAVE IN V1/V2] Compared to ECG 01/01/2025 13:36:55 No significant changes Electronically Signed On 01-01-2025 22:19:41 CDT by AMELIA ARGUETA [email or web address]
[2025-01-02] VITALS (9 sets, daily range): BP systolic 89–116; BP diastolic 61–80; PULSE 77–107; RESP 14–17; TEMP 36.4–36.6; O2SAT 91–97
[2025-01-02] MEDS: meropenem 1,000 mg SDV 1000 MG IVP ×3 (03:08→20:10)
[2025-01-02] MEDS: dilTIAZem 30 mg Tablet PO ×4 (03:08→20:10)
[2025-01-02 03:28] LABS: Basophils # 0.1 10^3/uL (0.0-0.1); Basophils % 0.7 %; Eosinophils # 0.2 10^3/uL (0.0-0.8); Eosinophils % 2.9 %; Hematocrit 50.2 % (36-47); Lymphocytes # 1.9 10^3/uL (0.8-4.8); Lymphocytes % 25.8 %; Mean Corpuscular HGB Conc 32.1 g/dL (30-55); Mean Corpuscular Volume 90.3 fl (85-98); Monocytes # 0.9 10^3/uL (0.2-0.9); Monocytes % 12.8 %; Neutrophils # 4.12 10^3/uL (1.8-7.7); Neutrophils % 57.5 %; Nucleated Red Blood Cells % 0 %; Platelet Count 197 10^3/cmm (157-399); Red Blood Count 5.56 10^6/uL (3.85-5.65); Red Cell Distribution Width 14.7 % (12.1-15.1); White Blood Count 7.17 10^3/uL (3.29-11.43)
[2025-01-02 03:59] LABS: Alanine Aminotransferase 306 U/L (0-33); Albumin Level 3.4 g/dL (3.5-5.2); Alkaline Phosphatase 219 U/L (35-105); Aspartate Amino Transferase 55 U/L (0-32); Blood Urea Nitrogen 34 mg/dL (8-23); Calcium 10.1 mg/dL (8.5-10.5); Carbon Dioxide 32 mmol/L (22-29); Chloride 95 mmol/L (98-107); Globulin 3.2 g/dL (1.3-4.6); Glucose 150 mg/dL (65-115); Osmolality Calculated 302 mOsm/kg (285-295); Sodium 141 mmol/L (136-145); Total Bilirubin 0.3 mg/dL (0.15-1.2); Total Protein 6.6 g/dL (6.6-8.7)
[2025-01-02 04:02] LABS: Anion Gap 17.6 (5-19); Potassium 3.6 mmol/L (3.5-5.1)
[2025-01-02 04:03] LABS: NT Pro B Type Natriuretic Pept 6438 pg/mL (0-450)
[2025-01-02] MEDS: levothyroxine 112 mcg Tablet PO (06:06)
[2025-01-02] MEDS: rivaroxaban 10 mg Tablet 20 MG PO (09:04)
[2025-01-02] MEDS: aspirin 81 mg EC Tablet PO (09:04)
[2025-01-02] MEDS: amiodarone 200 mg Tablet 400 MG PO ×2 (09:04→18:11)
[2025-01-02] MEDS: pantoprazole 40 mg SDV IVP ×2 (09:05→18:12)
[2025-01-02] MEDS: metoprolol tartrate 50 mg Tablet 75 MG PO ×2 (09:05→18:11)
[2025-01-02] MEDS: sennosides-docusate Tablet 1 TAB PO (09:05)
[2025-01-02] MEDS: levETIRAcetam 500 mg Tablet 750 MG PO ×2 (09:05→18:12)
[2025-01-02] MEDS: digoxin 250 mcg/ml INJ 2 mL IVP (11:25)
--- NOTE | 2025-01-02 12:11 | P.PN_ITS ---
<Statement entered by Oanh Caballero MD - 01/02/25 22:14> Patient was evaluated and cared for in conjunction with an advanced practice practitioner. I personally examined the patient and reviewed the chart and all pertinent data including imaging, telemetry, and laboratory results. I discussed the patient in detail with the advanced practice practitioner. Please see their note for complete H&P testing result and agreed upon plan of care for the patient. Overall feeling better but rate is not well-controlled GENERAL: Patient is alert, awake and oriented x3. HEART: Irregularly irregular S1 and S2. No murmur, rub or gallop. LUNGS: Clear to auscultate bilaterally. CENTRAL NERVOUS SYSTEM: Grossly nonfocal. EXTREMITIES: Lower extremities with out edema bilaterally. Assessment and plan Atrial fibrillation with rapid ventricle response Cardiomyopathy CHF diastolic type Add digoxin to Cardizem and amiodarone If does not convert over next 36 hours may proceed with WEI guided cardioversion Subjective 2 Subjective: Patient doing well at this time without complaints. Heart rate is better controlled at 105 once Cardizem was added. Still not as controlled as we would like. Denies any chest pain or shortness of breath at this time. Creatinine is 1. Vitals/I&O/Wt Last Vital Signs Temp 97.7 F 01/02/25 11:13 Pulse 105 H 01/02/25 11:13 Resp 15 01/02/25 11:13 BP 105/76 01/02/25 11:13 Pulse Ox 91 01/02/25 11:13 O2 Del Method Nasal Cannula 01/02/25 11:13 O2 Flow Rate 1 01/02/25 11:03 01/01/25 01/02/25 01/02/25 22:59 06:59 14:59 Intake Total 120 / 120 Output Total 300 / 700 Balance -300 / 240 120 / 120 Weight last 48 hrs Weight 163 lb Weight 164 lb 4.8 oz Physical Exam 2 Narrative: General: No apparent distress, healthy appearing, well nourished HENMT: normoceophalic Muskuloskeletal: uses walker for ambulation Respiratory: Normal respiratory effort, clear to auscultation bilaterally throughout all lung robles, no use of accessory muscles Cardio: No JVD, regular rate, regular rhythm, S1 S2 normal, no murmurs, peripheral pulses 2+ radial palpated bilaterally GI: Normal to inspection, nondistended Extremities: Full ROM, normal, normal capillary refill, no cyanosis or edema Neuro: Alert and oriented x4, aphasia present, baseline for patient Psych: Affect normal, denies suicidal ideation, mental status grossly normal Skin: No rashes or lesions noted, no wounds Data 01/02/25 02:53 01/02/25 02:53 A&P Assessment and plan (1) Atrial fibrillation with RVR: (2) Cardiomyopathy: Qualifiers: Cardiomyopathy type: unspecified Qualified Code(s): I42.9 - Cardiomyopathy, unspecified (3) Heart failure: Qualifiers: Heart failure type: systolic Heart failure chronicity: acute on chronic Qualified Code(s): I50.23 - Acute on chronic systolic (congestive) heart failure (4) Elevated liver enzymes: Plan Liver enzymes have decreased. Will continue Amio 400 twice daily. Will continue Cardizem 30 every 6 hours. Patient still has uncontrolled rates in a flutter. We recommend adding a loading dose of digoxin. Will do this in 3 separate doses. Will give 250 mcg initially then 125 in 6 hours, 125 6 hours from then. Digoxin level to be checked after second IV dose and prior to third. If this is high we will need to hold third dose. If patient does not have better rate control will consider cardioversion tomorrow. Will put her n.p.o. after midnight just in case. She will need a WEI guided cardioversion if she does need cardioverted. Continue metoprolol 75 twice daily and Xarelto 20 for stroke coverage and A-fib. PDMP PDMP Reviewed: Not Reviewed Attestations 2 Medical Necessity Statement*: Deferred to primary. Coding Level of Care Code Acute Code for [facility] Fwd Diagnoses Atrial fibrillation with RVR I48.91 Cardiomyopathy, unspecified type I42.9 Cardiomyopathy type: unspecified Acute on chronic systolic heart failure I50.23 Heart failure type: systolic Heart failure chronicity: acute on chronic Elevated liver enzymes R74.8
--- NOTE | 2025-01-02 15:58 | P.PN_ITS ---
Subjective 2 Subjective: Denies any chest pain or pressure. Overall feels little bit better. Vitals/I&O/Wt Last Vital Signs Temp 97.7 F 01/02/25 15:11 Pulse 107 H 01/02/25 15:11 Resp 15 01/02/25 15:11 BP 111/78 01/02/25 15:11 Pulse Ox 93 01/02/25 15:11 O2 Del Method Nasal Cannula 01/02/25 15:11 O2 Flow Rate 1 01/02/25 11:03 01/02/25 01/02/25 01/02/25 06:59 14:59 22:59 Intake Total 360 / 360 Balance 360 / 360 Weight last 48 hrs Weight 73.936 kg Weight 74.525 kg Physical Exam 2 Const: COMMON NORMALS: patient oriented x3 and alert GENERAL APPEARANCE: c ooperative ORIENTATION/CONSCIOUSNESS: Yes awake HENMT: COMMON NORMALS: oropharynx normal Neck/C-Spine: COMMON NORMALS: no JVD Resp: COMMON NORMALS: normal respiratory effort and clear to auscultation bilaterally AUSCULTATION: clear to auscultation bilaterally Cardio: COMMON NORMALS: no JVD, S1 normal heart sound present, S2 normal heart sound present and No murmurs present (Cardio) RHYTHM: abnormal rhythm irregularly irregular HEART SOUNDS: S1 normal heart sound present and S2 normal heart sound present GI: COMMON NORMALS: Normal to inspection, nondistended, normoactive bowel sounds present, Soft to palpation and non-tender PALPATION: Yes Soft to palpation Extremity: COMMON NORMALS: no joint enlargement Neuro: COMMON NORMALS: patient oriented x3 and moves all extremities S ENSORIUM/ORIENTATION: Yes alert Skin: COMMON NORMALS: no rashes or lesions noted GENERAL SKIN EXAM: no rashes or lesions noted Data 01/02/25 02:53 01/02/25 02:53 A&P Assessment and plan (1) Generalized seizure disorder: (2) Multi-infarct dementia: (3) Aphasia as late effect of stroke: (4) Transaminitis: (5) Elevated liver enzymes: (6) Respiratory failure with hypoxia: Qualifiers: Chronicity: acute Qualified Code(s): J96.01 - Acute respiratory failure with hypoxia (7) Gurmeet's paralysis: (8) Atrial fibrillation with RVR: (9) Acute exacerbation of CHF (congestive heart failure): Qualifiers: Heart failure type: unspecified Qualified Code(s): I50.9 - Heart failure, unspecified Plan Atrial fibrillation with rapid ventricle response Heart rate overall somewhat better, but still with persistent low-grade tachycardia just below 110. A-fib with RVR. Blood pressure soft this morning. Without further increases on Cardizem and metoprolol. Continues on amiodarone. Discussed with cardiology, adding digoxin. Reassess renal function. Monitor for risk of hypotension. Reviewed potassium. Check magnesium. Continue Xarelto In case lack of further improvement with continued rate control, as well as with additional digoxin, tentative plan by cardiology for possible cardioversion tomorrow. N.p.o. after midnight. Ground-level fall -No pain complaints Possible seizure continue p.o. Keppra dose Acute encephalopathy, resolving Reviewed vitals, CBC, CMP. She is awake and alert, pleasant, conversant. Lucid Quality able to comprehend my questions, she has global aphasia, able to follow commands CT head unremarkable, no new traumatic fracture noted on the morales trauma scan Calcium level is normal UTI, with history of ESBL, urine culture showing ESBL E. coli, continue meropenem, will likely need a total of 7 days of IV antibiotics, stop date January 04, will discuss with case management, she will ertapenem 1 g IV every 24 hours Transaminitis, LFTs are improving Ultrasound gallbladder shows nonspecific gallbladder wall thickening, normal duplex of portal vein Hold atorvastatin and zonisamide Acute hep panel within normal limits, flu negative, COVID-19 negative Chronic mesenteric ischemia IMPRESSION: 1. 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 2. 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 History of stroke with global aphasia Continue aspirin for now holding atorvastatin Hypothyroidism Continue levothyroxine dose Acute hypoxia: Now euvolemic, further diuresis has been held. Monitor volume status. History of CVA, productive aphasia, right-sided deficit skilled nursing resident, at baseline active, independent for daily activities, on mechanical soft diet DVT prophylaxis covered with Xarelto Full code PDMP PDMP Reviewed: Not Reviewed Attestations 2 Medical Necessity Statement*: Continue optimization of persistent atrial fibrillation with RVR, cardioversion in case of lack of further improvement. and High MDM includes amount and/or complexity of data reviewed/ordered [ resulted lab(s)/test(s)] and described risk of complication, morbidity or mortality of management as documented Diagnoses Generalized seizure disorder G40.309 Multi-infarct dementia F01.50 Aphasia as late effect of stroke I69.320 Transaminitis R74.01 Elevated liver enzymes R74.8 Respiratory failure with hypoxia J96.01 Chronicity: acute Gurmeet's paralysis G83.84 Atrial fibrillation with RVR I48.91 Acute exacerbation of CHF (congestive heart failure) I50.9 Heart failure type: unspecified
[2025-01-02] MEDS: digoxin 250 mcg/ml INJ 2 mL 125 MCG IVP (17:27)
[2025-01-02 21:29] LABS: Digoxin 1.5 ng/mL (0.6-1.2)
[2025-01-03] VITALS (11 sets, daily range): BP systolic 103–123; BP diastolic 64–87; PULSE 60–106; RESP 12–21; TEMP 36.3–36.7; O2SAT 92–97
--- NOTE | 2025-01-03 00:08 | PC.NURSE ---
Digoxin level came back high at 1.5. Notifide Dr. Amor, given orders to hold 2330 dose.
[2025-01-03] MEDS: dilTIAZem 30 mg Tablet PO ×3 (02:59→21:06)
[2025-01-03] MEDS: meropenem 1,000 mg SDV 1000 MG IVP ×3 (02:59→17:30)
[2025-01-03 03:30] LABS: Basophils % 0.6 %; Eosinophils # 0.2 10^3/uL (0.0-0.8); Eosinophils % 3.3 %; Hematocrit 49.9 % (36-47); Lymphocytes # 1.9 10^3/uL (0.8-4.8); Lymphocytes % 29.6 %; Mean Corpuscular HGB Conc 31.7 g/dL (30-55); Mean Corpuscular Hemoglobin 28.4 pg (27-33); Mean Corpuscular Volume 89.6 fl (85-98); Mean Platelet Volume 12.1 fL (7.4-10.4); Monocytes # 0.7 10^3/uL (0.2-0.9); Monocytes % 10.5 %; Neutrophils # 3.55 10^3/uL (1.8-7.7); Neutrophils % 55.7 %; Nucleated Red Blood Cells % 0 %; Platelet Count 185 10^3/cmm (157-399); Red Blood Count 5.57 10^6/uL (3.85-5.65); Red Cell Distribution Width 14.6 % (12.1-15.1); White Blood Count 6.38 10^3/uL (3.29-11.43)
[2025-01-03 03:50] LABS: Alanine Aminotransferase 213 U/L (0-33); Albumin Level 3.2 g/dL (3.5-5.2); Alkaline Phosphatase 199 U/L (35-105); Anion Gap 13.3 (5-19); Aspartate Amino Transferase 33 U/L (0-32); Blood Urea Nitrogen 39 mg/dL (8-23); Carbon Dioxide 33 mmol/L (22-29); Chloride 98 mmol/L (98-107); Globulin 3.1 g/dL (1.3-4.6); Glucose 146 mg/dL (65-115); Osmolality Calculated 304 mOsm/kg (285-295); Potassium 3.3 mmol/L (3.5-5.1); Sodium 141 mmol/L (136-145); Total Bilirubin 0.4 mg/dL (0.15-1.2); Total Protein 6.3 g/dL (6.6-8.7)
[2025-01-03 03:58] LABS: NT Pro B Type Natriuretic Pept 2758 pg/mL (0-450)
[2025-01-03] MEDS: levothyroxine 112 mcg Tablet PO (06:14)
[2025-01-03] MEDS: amiodarone 200 mg Tablet 400 MG PO (08:44)
[2025-01-03] MEDS: aspirin 81 mg EC Tablet PO (08:44)
[2025-01-03] MEDS: pantoprazole 40 mg SDV IVP ×2 (08:44→17:31)
[2025-01-03] MEDS: rivaroxaban 10 mg Tablet 20 MG PO (08:45)
[2025-01-03] MEDS: metoprolol tartrate 50 mg Tablet 75 MG PO (08:45)
[2025-01-03] MEDS: levETIRAcetam 500 mg Tablet 750 MG PO ×2 (08:46→17:31)
[2025-01-03] MEDS: sennosides-docusate Tablet 1 TAB PO (08:46)
[2025-01-03] MEDS: potassium chloride ER 20 mEq Tablet 40 MEQ PO (08:46)
--- NOTE | 2025-01-03 08:54 | PC.SOCIAL ---
IMM Update Pg.2 of IMM Updated, copy in chart initialed/dated/timed. Copy provided at bedside.
[2025-01-03 09:26] LABS: Thyroid Stimulating Hormone 0.62 uIU/mL (0.27-4.20)
--- NOTE | 2025-01-03 10:13 | ANES.PREANE2 ---
Pre-Anesthetic Assessment Height/Weight: Height 1.65 m Weight 75.07 kg Temp Pulse Resp BP Pulse Ox O2 Del Method O2 Flow Rate 97.9 F 106 H 19 H 107/87 95 Nasal Cannula 1 01/03/25 07:52 01/03/25 07:52 01/03/25 07:52 01/03/25 07:52 01/03/25 07:52 01/03/25 07:52 01/02/25 11:03 WEI, Cardioversion Familial anesthetic complications: None Last intake: > 8 hrs Social No alcohol and No tobacco Exam alert, oriented x 3, clear to auscultation bilaterally and regular rate & rhythm CV/HEM Atrial Fibrillation, Arrythmia, Congestive Heart Failure and Hypertension pacemaker echo CONCLUSIONS Diffuse hypokinesia of the left ventricle with an ejection fraction of around 35%. Mild to moderate concentric hypertrophy. Moderately increased right atrial size. . Catheter/pacemaker wire in the right atrial cavity. Moderately increased left atrial size. Thickened mitral valve. Mild mitral valve regurgitation. Estimated pulmonary artery peak systolic pressure 31 mmHg Mild aortic valve calcification. Mild aortic valve regurgitation. Moderate pulmonary valve regurgitation. There is no pericardial effusion. There are no intracardiac masses. Compared to the study from 03/14/2024, there is a significant drop in the LV ejection fraction from 64% to 36% GI Gastroesophageal Reflux Disease Metabolic Thyroid Disease Neuropsych Cerebrovascular Accident and Seizure Anesthetic Plan ASA status: 4 Anesthesia: MAC Risk of > 500 ml blood loss (7ml/kg in children): No Medications/Allergies Home Medications ?Medication ?Instructions ?Recorded ?Confirmed ?Last Taken ?Type aspirin 81 mg tablet,delayed 81 mg PO DAILY@0800 #60 tabs 03/14/24 12/28/24 10/25/24 Rx release (Adult Low Dose Aspirin) pantoprazole 40 mg tablet,delayed 40 mg PO QAM 03/14/24 12/28/24 10/25/24 History release aluminum-mag hydroxide-simethicone 10 ml PO Q4H PRN Constipation 10/26/24 12/28/24 Unknown History 200 mg-200 mg-20 mg/5 mL oral susp docusate sodium 100 mg capsule 100 mg PO BID 10/26/24 12/28/24 10/26/24 History metoprolol tartrate 50 mg tablet 50 mg PO BID 10/26/24 12/28/24 Unknown History rivaroxaban 20 mg tablet (Xarelto) 20 mg PO DAILY 10/26/24 12/28/24 10/26/24 History venlafaxine 150 mg 150 mg PO QPM 10/26/24 12/28/24 10/25/24 History capsule,extended release 24 hr zonisamide 100 mg capsule 200 mg PO QPM 10/26/24 12/28/24 Unknown History zonisamide 100 mg capsule 300 mg PO DAILY 10/26/24 12/28/24 Unknown History atorvastatin 40 mg tablet 80 mg (2 x 40 mg) PO DAILY #60 tabs 10/27/24 12/28/24 Unknown Rx levetiracetam 500 mg tablet 750 mg (1.5 x 500 mg) PO BID #90 10/27/24 12/28/24 Unknown Rx tabs levothyroxine 112 mcg tablet 112 mcg PO DAILY #30 tabs 10/27/24 12/28/24 Unknown Rx ondansetron HCl 4 mg tablet 4 mg PO Q4H 11/24/24 12/28/24 Unknown History acetaminophen 500 mg tablet 500 mg PO BID PRN Pain 12/28/24 12/28/24 Unknown History bisacodyl 10 mg rectal suppository 10 mg FL DAILY PRN Constipation 12/28/24 12/28/24 Unknown History (Dulcolax (bisacodyl)) magnesium hydroxide 400 mg/5 mL 30 ml PO DAILY PRN Constipation 12/28/24 12/28/24 Unknown History oral suspension (Milk of Magnesia) miconazole nitrate 2 % topical 1 spray topical TID 12/28/24 12/28/24 Unknown History spray powder diltiazem HCl 60 mg tablet 60 mg PO Q12H 30 days #60 tabs 12/29/24 Unknown Rx (Cardizem) lisinopril 40 mg tablet 20 mg (1/2 x 40 mg) PO DAILY #60 12/29/24 12/28/24 Unknown Rx tabs nitrofurantoin 100 mg PO BID 7 days #14 caps 12/29/24 Unknown Rx monohydrate/macrocrystals 100 mg capsule (Macrobid) Allergies Allergy/AdvReac Type Severity Reaction Status Date / Time Penicillins Allergy Unknown Unknown Verified 12/27/24 18:59 tetanus and diphtheria Allergy Unknown Verified 12/27/24 18:59 toxoids morphine AdvReac Intermediate ADR-Confusi Verified 12/27/24 18:59 on penicillin G procaine AdvReac unknown Verified 12/27/24 18:59 Current Medications Generic Name Dose Route Start Last Admin Trade Name Vinnie PRN Reason Stop Dose Admin Amiodarone HCl 400 mg 12/31/24 14:25 01/03/25 08:44 Amiodarone 200 Mg Tablet PO 400 mg BID ART Administration Aspirin 81 mg 12/28/24 08:00 01/03/25 08:44 Aspirin 81 Mg Ec Tablet PO 81 mg DAILY@0800 ART Administration Diltiazem HCl 30 mg 01/01/25 08:15 01/03/25 08:45 Diltiazem 30 Mg Tablet PO 30 mg Q6H ART Administration Levetiracetam 750 mg 12/28/24 09:00 01/03/25 08:46 Levetiracetam 500 Mg Tablet PO 750 mg BID ART Administration Levothyroxine Sodium 112 mcg 12/28/24 07:00 01/03/25 06:14 Levothyroxine 112 Mcg Tablet PO 112 mcg ACBREAKFAST ART Administration Meropenem 1,000 mg 12/28/24 09:00 01/03/25 02:59 Meropenem 1,000 Mg Sdv IVP 1,000 mg Q8H ART Administration Protocol Metoprolol Tartrate 75 mg 12/31/24 08:34 01/03/25 08:45 Metoprolol Tartrate 50 Mg Tablet PO 75 mg BID ART Administration Pantoprazole Sodium 40 mg 12/28/24 09:00 01/03/25 08:44 Pantoprazole 40 Mg Sdv IVP 40 mg BID ART Administration Rivaroxaban 20 mg 12/28/24 09:00 01/03/25 08:45 Rivaroxaban 10 Mg Tablet PO 20 mg DAILY ART Administration Senna/Docusate Sodium 1 tab 12/28/24 09:00 01/03/25 08:46 Sennosides-Docusate Tablet PO 1 tab DAILY ART Administration PFSH Anesthesia Medical History CVA (cerebral vascular accident) UTI (urinary tract infection) Hypotension Aphasia Multiple falls Altered mental status Acute cystitis Hypersomnia TIA (transient ischemic attack) Recurrent UTI Medication noncompliance due to cognitive impairment Need for assistance with personal care Need for assistance due to reduced mobility Mild cognitive impairment with memory loss Oxygen dependent ANGIE (acute kidney injury) Hypertension Transient cerebral ischemia Chronic migraine without aura, intractable, with status migrainosus GERD (gastroesophageal reflux disease) 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) Dementia Obstructive sleep apnea Sleep apnea Type 2 diabetes mellitus Tachy-martin syndrome Non-insulin dependent diabetes mellitus -A1c (12/2019): 8.3 -Accucheks, ISS, hypoglycemia precautions -consistent carb diet as tolerated -takes metformin at home, can resume on d/c Drug-induced bradycardia Digoxin was discontinued along beta-alexandrea Atrial flutter Diastolic heart failure Generalized epilepsy CHF (congestive heart failure) Atrial fibrillation Severe obstructive sleep apnea Hypothyroidism Depressed Atrial dysrhythmia Diabetes 1.5, managed as type 2 Sleep apnea in adult Stroke due to embolism of left middle cerebral artery -prior hx of L MCA CVA in 05/2019; did not receive tPA -has been f/u with Dr. Randall -attributed to atrial fibrillation -on ASA, statin, AC with Eliquis -has residual cognitive impairment Seizure Heart failure Paroxysmal A-fib Surgical History Status post cardiac pacemaker procedure No pertinent past surgical history Family History Sister Diabetes Father Heart disease Mother Heart disease Social History Smoking and tobacco/nicotine status: never used tobacco/nicotine Alcohol intake: never Substance/Drug Use: never Data Anesthesia 01/04/25 03:35 01/04/25 03:35 Short CBC 01/02/25 01/03/25 Range/Units 02:53 03:09 WBC 7.17 6.38 (3.29-11.43) 10^3/uL Hgb 16.10 15.80 (11.27-16.99) g/dL Hct 50.2 H 49.9 H (36-47) % MCV 90.3 89.6 (85-98) fl Plt Count 197 D 185 (157-399) 10^3/cmm Neut % (Auto) 57.5 55.7 % Neut # (Auto) 4.12 3.55 (1.8-7.7) 10^3/uL BMP 01/02/25 01/03/25 02:53 03:09 Sodium 141 141 Potassium 3.6 3.3 L Chloride 95 L 98 Carbon Dioxide 32 H 33 H BUN 34 H 39 H Creatinine 1.0 H 0.9 Glucose 150 H 146 H Calcium 10.1 10.0 Cardiac Enzymes 01/02/25 01/03/25 Range/Units 02:53 03:09 NT-Pro-B Natriuret Pep 6438 H 2758 H (0-450) pg/mL Liver Function 01/02/25 01/03/25 Range/Units 02:53 03:09 Total Bilirubin 0.3 0.4 (0.15-1.2) mg/dL AST 55 H 33 H (0-32) U/L ALT 306 H 213 H (0-33) U/L Alkaline Phosphatase 219 H 199 H (35-105) U/L Albumin 3.4 L 3.2 L (3.5-5.2) g/dL Cardiac Studies: Echocardiogram 10/26/24
--- NOTE | 2025-01-03 10:30 | P.PN_ITS ---
<Statement entered by Oanh Caballreo MD - 01/04/25 11:40> Patient was evaluated and cared for in conjunction with an advanced practice practitioner. I personally examined the patient and reviewed the chart and all pertinent data including imaging, telemetry, and laboratory results. I discussed the patient in detail with the advanced practice practitioner. Please see their note for complete H&P testing result and agreed upon plan of care for the patient. Patient remains in atrial flutter despite of amiodarone and Cardizem and digoxin, we proceeded with WEI guided cardioversion with the remained successful GENERAL: Patient is alert, awake and oriented x3. HEART: Regular S1 and S2. No murmur, rub or gallop. LUNGS: Clear to auscultate bilaterally. CENTRAL NERVOUS SYSTEM: Grossly nonfocal. EXTREMITIES: Lower extremities with out edema bilaterally. Assessment and plan Atrial flutter Hypertension Status post permanent pacemaker Status post WEI guided electrical cardioversion which remained successful patient is in sinus rhythm Reduce amiodarone to 400 mg once a day Reduce beta-alexandrea to 50 twice daily Discontinue digoxin Discontinue Cardizem Possible discharge tomorrow continue oral anticoagulation Subjective 2 Subjective: Patient was given IV digoxin yesterday. Third dose was held due to elevated level. She still has an uncontrolled heart rate in aflutter. She will need to be cardioverted today. Vitals/I&O/Wt Last Vital Signs Temp 97.9 F 01/03/25 07:52 Pulse 106 H 01/03/25 07:52 Resp 19 H 01/03/25 07:52 BP 107/87 01/03/25 07:52 Pulse Ox 95 01/03/25 07:52 O2 Del Method Nasal Cannula 01/03/25 07:52 O2 Flow Rate 1 01/02/25 11:03 01/02/25 01/03/25 01/03/25 22:59 06:59 14:59 Intake Total 60 / 420 200 / 620 Output Total 0 / 0 Balance 60 / 420 200 / 620 Weight last 48 hrs Weight 165 lb 8 oz Weight 163 lb Physical Exam 2 Narrative: General: No apparent distress, healthy appearing, well nourished HENMT: normoceophalic Muskuloskeletal: uses walker for ambulation Respiratory: Normal respiratory effort, clear to auscultation bilaterally throughout all lung robles, no use of accessory muscles Cardio: No JVD, regular rate, regular rhythm, S1 S2 normal, no murmurs, peripheral pulses 2+ radial palpated bilaterally GI: Normal to inspection, nondistended Extremities: Full ROM, normal, normal capillary refill, no cyanosis or edema Neuro: Alert and oriented x4, aphasia present, baseline for patient Psych: Affect normal, denies suicidal ideation, mental status grossly normal Skin: No rashes or lesions noted, no wounds Data 01/03/25 03:09 01/03/25 03:09 A&P Assessment and plan (1) Atrial fibrillation with RVR: (2) Cardiomyopathy: Qualifiers: Cardiomyopathy type: unspecified Qualified Code(s): I42.9 - Cardiomyopathy, unspecified (3) Heart failure: Qualifiers: Heart failure type: systolic Heart failure chronicity: acute on chronic Qualified Code(s): I50.23 - Acute on chronic systolic (congestive) heart failure (4) Elevated liver enzymes: Plan We discussed with patient and a family member proceeding with WEI guided cardioversion. Patient agrees to proceed. I did discuss this with the pacemaker rep who stated no need to interrogate pacemaker before or after procedure. We have replaced potassium. Will do this around 11:30 today. PDMP PDMP Reviewed: Not Reviewed Attestations 2 Medical Necessity Statement*: Deferred to primary Coding Level of Care Code Acute Code for [facility] Diagnoses Atrial fibrillation with RVR I48.91 Cardiomyopathy, unspecified type I42.9 Cardiomyopathy type: unspecified Acute on chronic systolic heart failure I50.23 Heart failure type: systolic Heart failure chronicity: acute on chronic Elevated liver enzymes R74.8
[2025-01-03 11:35] LABS: Anion Gap 13.1 (5-19); Blood Urea Nitrogen 36 mg/dL (8-23); Calcium 10.3 mg/dL (8.5-10.5); Carbon Dioxide 34 mmol/L (22-29); Chloride 96 mmol/L (98-107); Glucose 176 mg/dL (65-115); Osmolality Calculated 301 mOsm/kg (285-295); Potassium 4.1 mmol/L (3.5-5.1); Sodium 139 mmol/L (136-145)
--- NOTE | 2025-01-03 11:44 | PC.NURSE ---
patient cardioverted at 1138am by Dr Federico Link present as well. Patient immediately converted to sinus rhythm. Nurse and anesthesia at bedside. post cardioversion. Blood pressure is 97/57, heart rate at 60, o2 at 88 on 2L.
--- NOTE | 2025-01-03 11:45 | USCV_ITS ---
Gianluca Goode Age: 79 Gender: F : 1945 Exam Date: 01/03/2025 11:10 Ordering Phys: Sienna Russell NP Technologist: Exam Location: [facility] [place] Indication: card conversion BP: / HR: Rhythm: Sinus Technical Quality: Adequate MEASUREMENTS (Male / Female) Normal Values Medications Patient given IV sedation by anesthesia service, for details please refer to the anesthesia report. Complications None. Proc. Components The patient was brought to the WEI examination room in a fasting state after obtaining an informed consent. The WEI probe was passed into the posterior pharynx , mid-esophagus, distal esophagus, and gastric fundus. WEI was performed at multiple levels. The patient tolerated the procedure well and there were no complications. FINDINGS Left Ventricle Moderately increased left ventricular cavity size. Severely decreased left ventricular systolic function. Left ventricular ejection fraction is estimated at 20 %. Global left ventricular hypokinesis. Right Ventricle The right ventricle is normal in size and function. Right Atrium The right atrium is normal in size. Left Atrium The left atrium is normal in size. LA Appendage No thrombus visualized in the left atrial appendage. IA Septum No [id number] shunt seen at the atrial level. No right-to- left shunt seen at the atrial level with contrast. Mitral Valve Mildly thickened mitral valve. Mild mitral valve regurgitation. Aortic Valve Mild aortic valve calcification. No aortic valve stenosis. Trace aortic valve regurgitation. Tricuspid Valve Structurally normal tricuspid valve without significant stenosis or regurgitation. Pulmonary artery systolic pressure is normal. Pulmonic Valve Structurally normal pulmonic valve without significant stenosis. There is no pulmonic regurgitation. Pericardium Normal pericardium without effusion. Aorta Normal ascending aorta dimension. CONCLUSIONS Moderately increased left ventricular cavity size. Severely decreased left ventricular systolic function. Left ventricular ejection fraction is estimated at 20 %. Global left ventricular hypokinesis. No [id number] shunt seen at the atrial level. No right-to- left shunt seen at the atrial level with contrast. No thrombus visualized in the left atrial appendage. Mildly thickened mitral valve. Mild mitral valve regurgitation. There is no pericardial effusion. Oanh Caballero MD (Electronically Signed) Final Date: 04 January 2025 18:45 S
--- NOTE | 2025-01-03 12:40 | ANE.PACU2 ---
Inpatient post-anesthesia follow up: Airway intact: Yes Vital signs: Temperature 97.6 F Pulse Rate 61 Respiratory Rate 15 Blood Pressure 151/79 Pulse Oximetry 96 Oxygen Delivery Me thod Nasal Cannula Oxygen Flow Rate 2 Fraction of Inspir ed Oxygen Hydration adequate: Yes Nausea and vomiting: No Pain level: 1 Mental status: Baseline
--- NOTE | 2025-01-03 13:33 | P.PN_ITS ---
Subjective 2 Subjective: Patient was seen this morning, she is alert and awake, she has aphasia, can answer basic yes or no questions, her heart rate increased to the 110s upon questioning, atrial fibrillation, discussed plans on cardioversion today, she is in agreement Vitals/I&O/Wt Last Vital Signs Temp 97.9 F 01/03/25 07:52 Pulse 63 01/03/25 12:00 Resp 20 H 01/03/25 12:00 BP 111/73 01/03/25 12:00 Pulse Ox 97 01/03/25 12:00 O2 Del Method Aerosol Mask 01/03/25 12:00 O2 Flow Rate 1 01/02/25 11:03 01/02/25 01/03/25 01/03/25 22:59 06:59 14:59 Intake Total 60 / 420 200 / 620 Output Total 0 / 0 Balance 60 / 420 200 / 620 Weight last 48 hrs Weight 75.07 kg Weight 73.936 kg Physical Exam 2 Const: COMMON NORMALS: no acute distress ORIENTATION/CONSCIOUSNESS: Yes awake and Yes oriented to person Resp: COMMON NORMALS: normal respiratory effort, No retractions, No use of accessory muscles and clear to auscultation bilaterally AUSCULTATION: clear to auscultation bilaterally Cardio: COMMON NORMALS: S1 normal heart sound present and S2 normal heart sound present RATE: tachycardic RHYTHM: abnormal rhythm irregularly irregular HEART SOUNDS: S1 normal heart sound present and S2 normal heart sound present GI: COMMON NORMALS: Normal to inspection, nondistended, normoactive bowel sounds present and non-tender Extremity: COMMON NORMALS: no pedal edema Neuro: SENSORIUM/ORIENTATION: Yes oriented to person Psych: COMMON NORMALS: mental status grossly normal Data 01/03/25 03:09 01/03/25 11:11 A&P Assessment and plan (1) Generalized seizure disorder: (2) Multi-infarct dementia: (3) Aphasia as late effect of stroke: (4) Transaminitis: (5) Elevated liver enzymes: (6) Respiratory failure with hypoxia: Qualifiers: Chronicity: acute Qualified Code(s): J96.01 - Acute respiratory failure with hypoxia (7) Gurmeet's paralysis: (8) Atrial fibrillation with RVR: (9) Acute exacerbation of CHF (congestive heart failure): Qualifiers: Heart failure type: unspecified Qualified Code(s): I50.9 - Heart failure, unspecified Plan Atrial fibrillation with rapid ventricle response Has not respond to amiodarone drip, Cardizem drip, metoprolol 75 twice daily, Cardizem, digoxin Plan on cardioversion today Xarelto Elevated digoxin level, today it is 1.0 Ground-level fall -No pain complaints Possible seizure continue p.o. Keppra dose Acute encephalopathy, resolving Quality able to comprehend my questions, she has global aphasia, able to follow commands CT head unremarkable, no new traumatic fracture noted on the morales trauma scan Calcium level is normal UTI, with history of ESBL, urine culture showing ESBL E. coli, continue meropenem, will likely need a total of 7 days of IV antibiotics, stop date January 04, will discuss with case management, she will ertapenem 1 g IV every 24 hours Transaminitis, LFTs are improving Ultrasound gallbladder shows nonspecific gallbladder wall thickening, normal duplex of portal vein Hold atorvastatin and zonisamide Acute hep panel within normal limits, flu negative, COVID-19 negative Chronic mesenteric ischemia IMPRESSION: 1. 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 2. 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 History of stroke with global aphasia Continue aspirin for now holding atorvastatin Hypothyroidism Continue levothyroxine dose Acute hypoxia: Secondary to fluid overload, diastolic CHF exacerbation, -6.7 L, 1 dose IV Lasix 40 mg History of CVA, productive aphasia, right-sided deficit care home resident, at baseline active, independent for daily activities, on mechanical soft diet DVT prophylaxis covered with Xarelto Full code Plan for today cardioversion, continue meropenem PDMP PDMP Reviewed: Not Reviewed Attestations 2 Medical Necessity Statement*: Patient requires hospitalization for A-fib with RVR requiring cardioversion, ESBL E. coli UTI Diagnoses Generalized seizure disorder G40.309 Multi-infarct dementia F01.50 Aphasia as late effect of stroke I69.320 Transaminitis R74.01 Elevated liver enzymes R74.8 Respiratory failure with hypoxia J96.01 Chronicity: acute Gurmeet's paralysis G83.84 Atrial fibrillation with RVR I48.91 Acute exacerbation of CHF (congestive heart failure) I50.9 Heart failure type: unspecified
--- NOTE | 2025-01-03 15:20 | PC.NURSE ---
Per Sienna Russell NP, hold diltiazem 14:15 dose due to softer blood pressures earlier.
[2025-01-03] MEDS: metoprolol tartrate 50 mg Tablet PO (17:31)
[2025-01-03] MEDS: lactulose oral liq 20 gm/30 mL UDC PO (22:57)
[2025-01-04] VITALS: BP 115/73; PULSE 73; RESP 22; TEMP 36.9; O2SAT 97
[2025-01-04] MEDS: meropenem 1,000 mg SDV 1000 MG IVP (02:55)
[2025-01-04] MEDS: dilTIAZem 30 mg Tablet PO (02:55)
[2025-01-04 03:49] LABS: Basophils % 0.6 %; Eosinophils # 0.2 10^3/uL (0.0-0.8); Eosinophils % 3.7 %; Hematocrit 49.1 % (36-47); Lymphocytes # 1.6 10^3/uL (0.8-4.8); Lymphocytes % 24.6 %; Mean Corpuscular HGB Conc 31.2 g/dL (30-55); Mean Corpuscular Hemoglobin 28.9 pg (27-33); Mean Corpuscular Volume 92.6 fl (85-98); Mean Platelet Volume 12.1 fL (7.4-10.4); Monocytes # 0.7 10^3/uL (0.2-0.9); Monocytes % 11.3 %; Neutrophils # 3.91 10^3/uL (1.8-7.7); Neutrophils % 59.6 %; Nucleated Red Blood Cells % 0 %; Platelet Count 171 10^3/cmm (157-399); Red Cell Distribution Width 14.6 % (12.1-15.1); White Blood Count 6.55 10^3/uL (3.29-11.43)
[2025-01-04 04:00] VITALS: BP 151/79; PULSE 61; RESP 15; TEMP 36.4; O2SAT 96
[2025-01-04 04:15] LABS: Alanine Aminotransferase 161 U/L (0-33); Albumin Level 3.4 g/dL (3.5-5.2); Alkaline Phosphatase 180 U/L (35-105); Anion Gap 10.9 (5-19); Aspartate Amino Transferase 29 U/L (0-32); Blood Urea Nitrogen 38 mg/dL (8-23); Calcium 10.1 mg/dL (8.5-10.5); Carbon Dioxide 36 mmol/L (22-29); Chloride 97 mmol/L (98-107); Globulin 3.1 g/dL (1.3-4.6); Glucose 162 mg/dL (65-115); Osmolality Calculated 303 mOsm/kg (285-295); Potassium 3.9 mmol/L (3.5-5.1); Sodium 140 mmol/L (136-145); Total Bilirubin 0.5 mg/dL (0.15-1.2); Total Protein 6.5 g/dL (6.6-8.7)
[2025-01-04 05:19] VITALS: BMI 27.6
[2025-01-04] MEDS: levothyroxine 112 mcg Tablet PO (06:57)
[2025-01-04 08:00] VITALS: BP 129/89; PULSE 64; RESP 20; TEMP 36.4; O2SAT 94
[2025-01-04] MEDS: aspirin 81 mg EC Tablet PO (08:37)
[2025-01-04] MEDS: levETIRAcetam 500 mg Tablet 750 MG PO (08:37)
[2025-01-04] MEDS: rivaroxaban 10 mg Tablet 20 MG PO (08:38)
[2025-01-04] MEDS: pantoprazole 40 mg SDV IVP (08:38)
[2025-01-04] MEDS: sennosides-docusate Tablet 1 TAB PO (08:38)
[2025-01-04 10:00] VITALS: PULSE 61; RESP 18; O2SAT 95
[2025-01-04] MEDS: metoprolol tartrate 50 mg Tablet PO (10:03)
[2025-01-04] MEDS: amiodarone 200 mg Tablet 400 MG PO (10:03)
--- NOTE | 2025-01-04 10:04 | PC.NURSE ---
per Dr Caballero, continue metoprolol and amiodarone, discontinue diltiazem. Nurse non admined it in the DEC. Per Dr Nunes, do not give the meropenem, he will substitute it for another antibiotic. Meropenem order cancelled by nurse.
--- NOTE | 2025-01-04 10:47 | P.PN_ITS ---
Subjective 2 Subjective: Patient doing well today. Denies chest pain or shortness of breath. She remains in sinus rhythm. Diltiazem has been held several times due to hypotension. Vitals/I&O/Wt Last Vital Signs Temp 97.6 F 01/04/25 08:00 Pulse 64 01/04/25 08:00 Resp 20 H 01/04/25 08:00 BP 129/89 01/04/25 08:00 Pulse Ox 94 01/04/25 08:00 O2 Del Method Nasal Cannula 01/04/25 08:00 O2 Flow Rate 2 01/04/25 08:00 01/03/25 01/04/25 01/04/25 22:59 06:59 14:59 Intake Total 240 / 240 120 / 120 Output Total 600 / 600 400 / 1000 Balance -360 / -360 -400 / -760 120 / 120 Weight last 48 hrs Weight 166 lb 6 oz Weight 165 lb 8 oz Physical Exam 2 Narrative: General: No apparent distress, healthy appearing, well nourished HENMT: normoceophalic Muskuloskeletal: uses walker for ambulation Respiratory: Normal respiratory effort, clear to auscultation bilaterally throughout all lung robles, no use of accessory muscles Cardio: No JVD, regular rate, regular rhythm, S1 S2 normal, no murmurs, peripheral pulses 2+ radial palpated bilaterally GI: Normal to inspection, nondistended Extremities: Full ROM, normal, normal capillary refill, no cyanosis or edema Neuro: Alert and oriented x4, aphasia present, baseline for patient Psych: Affect normal, denies suicidal ideation, mental status grossly normal Skin: No rashes or lesions noted, no wounds Data 01/04/25 03:35 01/04/25 03:35 A&P Assessment and plan (1) Atrial fibrillation with RVR: (2) Cardiomyopathy: Qualifiers: Cardiomyopathy type: unspecified Qualified Code(s): I42.9 - Cardiomyopathy, unspecified (3) Heart failure: Qualifiers: Heart failure type: systolic Heart failure chronicity: acute on chronic Qualified Code(s): I50.23 - Acute on chronic systolic (congestive) heart failure (4) Elevated liver enzymes: Plan Patient status post WEI guided cardioversion. Recommend continue Xarelto for stroke prevention and A-fib. Continue amiodarone 400 mg daily x 1 week then drop down to 200 mg daily. Discontinue diltiazem. Continue metoprolol 50 twice daily. See us in the clinic in 7-10 days. May be discharged from a cardiology standpoint. PDMP PDMP Reviewed: Not Reviewed Attestations 2 Medical Necessity Statement*: Deferred to primary care. Coding Level of Care Code Acute Code for g [facility] Diagnoses Atrial fibrillation with RVR I48.91 Cardiomyopathy, unspecified type I42.9 Cardiomyopathy type: unspecified Acute on chronic systolic heart failure I50.23 Heart failure type: systolic Heart failure chronicity: acute on chronic Elevated liver enzymes R74.8
--- NOTE | 2025-01-04 11:18 | P.DS_ITS ---
Discharge Providers Date of Admission: 12/27/24 21:33 Date of Discharge: January 04, 2025 Attending Provider at Admission: Oanh Amor MD Attending Provider at Discharge: Meir Nunes MD Primary Care Provider: STEFANI Villaseñor Diagnoses at Discharge Discharge Diagnosis (1) Atrial fibrillation with RVR: Status: Acute (2) Cardiomyopathy: Status: Acute Qualifiers: Cardiomyopathy type: unspecified Qualified Code(s): I42.9 - Cardiomyopathy, unspecified (3) Heart failure: Status: Acute Qualifiers: Heart failure chronicity: acute on chronic Heart failure type: systolic Qualified Code(s): I50.23 - Acute on chronic systolic (congestive) heart failure (4) Elevated liver enzymes: Status: Acute Reason for Visit Reason for Visit: n/v Hospital Course Hospital Course This is a 79-year-old female with past medical history of seizures, global aphasia right-sided weakness, UTIs, A-fib, who presents [facility] due to fall, nausea, vomiting, shortness of breath Patient required hospitalization for A-fib with RVR, when shortness of breath, diastolic CHF exacerbation requiring IV diuresis. For A-fib with RVR, difficult to control, with poor response to Cardizem drip /amiodarone drip /digoxin, cardiology was consulted, she underwent cardioversion successfully, remains in normal sinus rhythm. Will be discharged on amiodarone 40 mg daily, metoprolol 50 twice daily, Xarelto, with close follow-up with cardiology as outpatient For shortness of breath, she received IV diuresis, diuresed over 6.7 L negative, overall clinically improved. Patient's hospitalization was complicated by ESBL E. coli UTI, patient completed IV antibiotic therapy as inpatient Patient had transaminitis on admission, which improved with holding atorvastatin and zonisamide. Potentially transaminitis could be associated with these 2 medications, nonetheless we will continue to hold as outpatient. For her zonisamide she should follow-up with Dr. Randall as outpatient. For her nausea vomiting, potentially related to chronic mesenteric ischemia CT/CT abdomen pelvis w con* [id number] IMPRESSION: 1. Small amount of free fluid in the pelvis. Presumably reactive. 2. Severe constipation. 3. 5 mm calcification is present at the tip of the cecum (level of the expected appendiceal/cecal junction). The appendix itself is not confidently seen, however there is some mild fullness at and adjacent to tip of the cecum. This area is difficult to evaluate due to clustering of bowel loops which creates volume averaging artifact. If the patient is presenting with focal right lower quadrant pain, I would highly advise close follow-up. -Continue aspirin, Xarelto -Small-volume feeds multiple times throughout the day Possible breakthrough seizure prior to admission, none throughout hospitalization, continue home Keppra dose Physical Exam Const: COMMON NORMALS: no acute distress ORIENTATION/CONSCIOUSNESS: Yes awake, Yes oriented to person and Yes oriented to place; not oriented to time Resp: COMMON NORMALS: normal respiratory effort, No retractions, No use of accessory muscles and clear to auscultation bilaterally AUSCULTATION: clear to auscultation bilaterally Cardio: COMMON NORMALS: regular rate, regular rhythm, S1 normal heart sound present and S2 normal heart sound present RATE: regular rate RHYTHM: regular rhythm HEART SOUNDS: S1 normal heart sound present and S2 normal heart sound present GI: COMMON NORMALS: Normal to inspection, nondistended, normoactive bowel sounds present and non-tender Extremity: COMMON NORMALS: no pedal edema Neuro: SENSORIUM/ORIENTATION: Yes oriented to person, Yes oriented to place and No oriented to time Psych: COMMON NORMALS: mental status grossly normal Discharge Data Studies Completed and Pending Completed Studies During Hospitalization Category Date Time Status CT cervical spine wo con [CT cervical spin wo con* Cat Scan 12/27/24 17:57 Completed [id number]] Urgent CT chest abdomen pelvis [CT chest abdpel w/*[id number] Cat Scan 12/27/24 19:37 Completed ] Stat CT head wo con* [id number] Urgent Cat Scan 12/27/24 17:57 Completed XR chest 1V portable [id number] Stat Exams 12/27/24 17:57 Completed US gall bladder [id number] Stat Ultrasound 12/27/24 21:17 Completed Pending at discharge Category Date Time Status Complete Blood Count w/Auto AM LABS Lab 01/05/25 04:00 Ordered Complete Blood Count w/Auto AM LABS Lab 01/06/25 04:00 Ordered Comprehensive Metabolic Panel AM LABS Lab 01/05/25 04:00 Ordered Comprehensive Metabolic Panel AM LABS Lab 01/06/25 04:00 [place] [id number] Routine Ultrasound 01/03/25 11:45 Taken Radiology Impressions Cervical Spine CT 12/27/24 17:57 IMPRESSION: 1. No acute osseous cervical spine CT findings. 2. 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 3. 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 COMMENTS: Consistent with the [employer]'s Incidental Findings Committee white paper (J Am Rosana Radiol 2015): In patients aged 35 years and older with an incidental thyroid nodule equal to or greater than 1.[address], MRI or extrathyroidal US, further evaluation with dedicated thyroid US is recommended for patients with normal life expectancy and without comorbidities. For smaller nodules without suspicious features, no further evaluation or follow up is recommended. Chest X-Ray 12/27/24 17:57 IMPRESSION: 1. Nonspecific interstitial prominence, similar compared to prior study likely related to chronic change. Recurrent edema or atypical infection could also cause this appearance. 2. No definitive evidence of acute cardiopulmonary disease. Head CT 12/27/24 17:57 IMPRESSION: 1. No acute intracranial head CT findings. 2. Remote prominent left posterior MCA/posterior watershed and right inferior posterolateral cerebellar wedge-shaped ischemic defects. 3. Atrophy/involutional changes of aging with components of chronic small-vessel disease. Chest/Abdomen/Pelvis CT 12/27/24 19:37 IMPRESSION: 1. No pulmonary emboli. 2. Moderate right and small left pleural effusions. No focal consolidation. IMPRESSION: 1. 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 2. 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 3. Marked gallbladder wall thickening with no gallstones identified. No intrahepatic or extrahepatic biliary ductal dilatation. Gallbladder Ultrasound 12/27/24 21:17 IMPRESSION: Unremarkable duplex of the portal vein. IMPRESSION: Mild nonspecific gallbladder wall thickening. Laboratory Results WBC 6.55 10^3/uL (3.29-11.43) 01/04/25 03:35 Corrected WBC Cancelled 12/30/24 06:00 RBC 5.30 10^6/uL (3.85-5.65) 01/04/25 03:35 Hgb 15.30 g/dL (11.27-16.99) 01/04/25 03:35 Hct 49.1 % (36-47) H 01/04/25 03:35 MCV 92.6 fl (85-98) 01/04/25 03:35 MCH 28.9 pg (27-33) 01/04/25 03:35 MCHC 31.2 g/dL (30-55) 01/04/25 03:35 RDW 14.6 % (12.1-15.1) 01/04/25 03:35 Plt Count 171 10^3/cmm (157-399) 01/04/25 03:35 MPV 12.1 fL (7.4-10.4) H 01/04/25 03:35 Gran % Cancelled 12/30/24 06:00 Neut % (Auto) 59.6 % 01/04/25 03:35 Lymph % (Auto) 24.6 % 01/04/25 03:35 Gonzales % (Auto) 11.3 % 01/04/25 03:35 Eos % (Auto) 3.7 % 01/04/25 03:35 Baso % (Auto) 0.6 % 01/04/25 03:35 Neut # (Auto) 3.91 10^3/uL (1.8-7.7) 01/04/25 03:35 Lymph # (Auto) 1.6 10^3/uL (0.8-4.8) 01/04/25 03:35 [place] # (Auto) 0.7 10^3/uL (0.2-0.9) 01/04/25 03:35 Eos # (Auto) 0.2 10^3/uL (0.0-0.8) 01/04/25 03:35 Baso # (Auto) 0.0 10^3/uL (0.0-0.1) 01/04/25 03:35 Absolute Gran (auto) Cancelled 12/30/24 06:00 Nucleated RBC % (auto) 0 % 01/04/25 03:35 Nucleated RBCs # 0.0 /100WBC 01/04/25 03:35 Sodium 140 mmol/L (136-145) 01/04/25 03:35 Potassium 3.9 mmol/L (3.5-5.1) 01/04/25 03:35 Chloride 97 mmol/L (98-107) L 01/04/25 03:35 Carbon Dioxide 36 mmol/L (22-29) H 01/04/25 03:35 Anion Gap 10.9 (5-19) 01/04/25 03:35 BUN 38 mg/dL (8-23) H 01/04/25 03:35 Creatinine 1.1 mg/dL (0.5-0.9) H 01/04/25 03:35 GFR Calculation Not Reportable 01/04/25 03:35 Glucose 162 mg/dL (65-115) H 01/04/25 03:35 POC Glucose 203 mg/dL (70-110) H 12/29/24 20:25 Calculated Osmolality 303 mOsm/kg (285-295) H 01/04/25 03:35 Lactic Acid 2.1 mmol/L (0.5-2.2) 12/27/24 18:39 Lactic Acid (Sepsis) 1.4 mmol/L (0.5-2.2) 12/27/24 20:44 Calcium 10.1 mg/dL (8.5-10.5) 01/04/25 03:35 Phosphorus 2.8 mg/dL (2.5-4.5) 12/31/24 05:28 Magnesium 2.0 mg/dL (1.7-2.3) 01/03/25 03:09 Total Bilirubin 0.5 mg/dL (0.15-1.2) 01/04/25 03:35 AST 29 U/L (0-32) 01/04/25 03:35 ALT 161 U/L (0-33) H 01/04/25 03:35 Alkaline Phosphatase 180 U/L (35-105) H 01/04/25 03:35 Creatine Kinase 32 U/L (26-192) 12/27/24 18:39 Troponin T Baseline 45 ng/L (0-10) H 12/27/24 18:39 Troponin T 120 Minute 43.72 ng/L (0-10) H 12/27/24 20:44 Delta Troponin T -1.28 ABS# (0-10) L 12/27/24 20:44 Troponin T Hi Sens 6Hr 38.26 ng/L (0-10) H 12/28/24 00:49 Troponin T Hi Sens 6Hr Delta -6.74 ng/L (0-12) L 12/28/24 00:49 C-Reactive Protein 18.9 mg/L (0.0-4.9) H 12/31/24 05:28 NT-Pro-B Natriuret Pep 2758 pg/mL (0-450) H 01/03/25 03:09 Total Protein 6.5 g/dL (6.6-8.7) L 01/04/25 03:35 Albumin 3.4 g/dL (3.5-5.2) L 01/04/25 03:35 Globulin 3.1 g/dL (1.3-4.6) 01/04/25 03:35 Triglycerides 52 mg/dL (0-150) 12/27/24 20:44 Lipase 71 U/L (13-60) H 12/27/24 18:39 TSH 0.62 uIU/mL (0.27-4.20) 01/03/25 03:09 Prolactin 7.56 ng/mL (4.8-23.3) 12/28/24 00:49 Urine Color Yellow (Yellow) 12/27/24 20:39 Urine Appearance Clear (CLEAR) 12/27/24 20:39 Urine pH 5.0 (5-7) 12/27/24 20:39 Ur Specific [place] 1.068 (1.005-1.030) H 12/27/24 20:39 Urine Protein 1+ (Negative) A 12/27/24 20:39 Urine Glucose (UA) Negative (Normal) 12/27/24 20:39 Urine Ketones Negative (Negative) 12/27/24 20:39 Urine Blood Negative (Negative) 12/27/24 20:39 Urine Nitrate Positive (Negative) A 12/27/24 20:39 Urine Bilirubin Negative (Negative) 12/27/24 20:39 Urine Urobilinogen 1.0 mg/dL (Negative) 12/27/24 20:39 Ur Leukocyte Esterase Negative (Negative) 12/27/24 20:39 Urine RBC None /hpf (0-2) 12/27/24 20:39 Urine WBC 5-10 /hpf (0-5) H 12/27/24 20:39 Ur Squamous Epith Cells 0-4 /hpf (0-5) H 12/27/24 20:39 Amorphous Sediment Not Reportable 12/27/24 20:39 Urine Bacteria 1+ /hpf (NONE) H 12/27/24 20:39 Digoxin 1.0 ng/mL (0.6-1.2) 01/03/25 03:09 Levetiracetam 59.3 mcg/mL (6.0-46.0) H 12/28/24 00:49 Hepatitis A IgM Ab Non-reactive (Nonreactive) 12/27/24 18:39 Hep Bs Antigen Non-reactive (Nonreactive) 12/27/24 18:39 Hep B Core IgM Ab Non-reactive (Nonreactive) 12/27/24 18:39 Hepatitis C Antibody Non-reactive (Nonreactive) 12/27/24 18:39 Influenza A (PCR) Negative (Negative) 12/27/24 18:35 Influenza Type B (PCR) Negative (Negative) 12/27/24 18:35 RSV (PCR) Negative (Negative) 12/27/24 18:35 SARS-CoV-2 (PCR) Negative (Negative) 12/27/24 18:35 Vitals Last Vital Signs Temp 97.6 F 01/04/25 08:00 Pulse 61 01/04/25 10:00 Resp 18 01/04/25 10:00 BP 129/89 01/04/25 08:00 Pulse Ox 95 01/04/25 10:00 O2 Del Method Nasal Cannula 01/04/25 10:00 O2 Flow Rate 1 01/04/25 10:00 Discharge Plan Discharge Patient Disposition: Xfer SNF Condition: Stable Prescriptions: New amiodarone [Pacerone] 200 mg Tablet 400 mg PO DAILY 30 Days Qty: 60 0RF Continued ondansetron HCl 4 mg tablet 4 mg PO Q4H pantoprazole 40 mg tablet,delayed release (DR/EC) 40 mg PO QAM aspirin [Adult Low Dose Aspirin] 81 mg tablet,delayed release (DR/EC) 81 mg PO DAILY@0800 Qty: 60 0RF docusate sodium 100 mg Capsule 100 mg PO BID alum-mag hydroxide-simeth 200-200-20 mg/5 mL Suspension 10 ml PO Q4H PRN (Reason: Constipation) Rx Instructions: administer between meals and at bedtime venlafaxine 150 mg capsule,extended release 24hr 150 mg PO QPM Rx Instructions: TAKE ONE CAPSULE BY MOUTH EVERY EVENING. metoprolol tartrate 50 mg tablet 50 mg PO BID Rx Instructions: TAKE ONE TABLET BY MOUTH TWICE DAILY AT 8am AND 8pm Xarelto 20 mg tablet 20 mg PO DAILY levetiracetam 500 mg Tablet 750 mg PO BID Qty: 90 0RF levothyroxine 112 mcg Tablet 112 mcg PO DAILY Qty: 30 0RF miconazole nitrate 2 % Aerosol Powder 1 spray TOPICAL TID acetaminophen 500 mg Tablet 500 mg PO BID PRN (Reason: Pain) magnesium hydroxide [Milk of Magnesia] 400 mg/5 mL Suspension 30 ml PO DAILY PRN (Reason: Constipation) bisacodyl [Dulcolax (bisacodyl)] 10 mg Suppository 10 mg ND DAILY PRN (Reason: Constipation) Held zonisamide 100 mg Capsule 300 mg PO DAILY Hold Instructions: Resume on 02/19/25. hold until you see dr randall Rx Instructions: take 3 capsules by mouth daily in the morning zonisamide 100 mg Capsule 200 mg PO QPM Hold Instructions: Resume on 02/19/25. hold until you seed dr Betsy randall Rx Instructions: take 2 capsules by mouth at bedtime atorvastatin 40 mg Tablet 80 mg PO DAILY Qty: 60 0RF Hold Instructions: Resume on 02/19/25. hold until LFT are back to [facility]NL Discontinued lisinopril 40 mg tablet 40 mg PO DAILY Discharge Orders: Discharge Order (Routine); Ordered 01/04/25 Ordered By: Meir Nunes Referrals: [facility] [place] [facility] [place] Sienna Russell NP [Nurse Practitioner] - 7-10 days Aretha Davies FNP [Primary Care Provider] - 01/04/25 Emi Randall MD [Physician] - 2 weeks Discharge Diet: Cardiac Discharge Activity: Resume usual activity Patient Instructions: Opioid Safety Activity Restrictions/Additional Instructions: - Please have your primary care provider recheck your liver function in 1 week -Hold atorvastatin until your liver function normalizes -Hold zonisamide until you see Dr. Randall, or your liver function normalizes -Follow-up with cardiology -If you have any chest pain or palpitations go to emergency room Discharge Attestations Time Spent in Discharge Care*: greater than 30 min Status at Discharge: Cognitive status at discharge: cognitively intact , Behavioral status at discharge: [facility] , Quality Metrics Clinical Quality Measures [ No reported AMI, CVA or VTE this stay] Coding Level of Care Code 71573 Total time (in minutes) for Discharge: 45 Diagnoses Atrial fibrillation with RVR I48.91 Cardiomyopathy, unspecified type I42.9 Cardiomyopathy type: unspecified Acute on chronic systolic heart failure I50.23 Heart failure chronicity: acute on chronic Heart failure type: systolic Elevated liver enzymes R74.8
[2025-01-04 11:56] VITALS: BP 110/68; PULSE 76; RESP 22; TEMP 36.9; O2SAT 96
[2025-01-04] MEDS: ertapenem 1,000 mg SDV 1000 MG IVP (13:36)
[2025-01-04 14:34] VITALS: BP 139/64; PULSE 84; RESP 18; TEMP 36.6; O2SAT 95
== END 2025-01-04 14:35 | disposition skilled nursing facility (03) | DRG 91 ==
LOC: ER 22:00 → ER IP 22:24 → CSU 12-28 08:10
PROVIDERS: Internal Medicine; Nurse Practitioner Family; Admitting Provider Internal Medicine; Emergency Provider Physician Assistant; PCP Registered Nurse; Visit Provider Family Medicine
DX: G83.84 Todd's paralysis (postepileptic) (principal); G93.41 Metabolic encephalopathy; I50.23 Acute on chronic systolic (congestive) heart failure; J96.01 Acute respiratory failure with hypoxia; N39.0 Urinary tract infection, site not specified; I42.9 Cardiomyopathy, unspecified; I48.92 Unspecified atrial flutter; K55.1 Chronic vascular disorders of intestine; G40.309 Generalized idiopathic epilepsy and epileptic syndromes, not intractable, without status epilepticus; F01.50 Vascular dementia, unspecified severity, without behavioral disturbance, psychotic disturbance, mood disturbance, and anxiety; I69.320 Aphasia following cerebral infarction; R74.01 Elevation of levels of liver transaminase levels; R74.8 Abnormal levels of other serum enzymes; Z87.440 Personal history of urinary (tract) infections; Z79.01 Long term (current) use of anticoagulants; R29.6 Repeated falls; R11.2 Nausea with vomiting, unspecified; I77.1 Stricture of artery; K21.9 Gastro-esophageal reflux disease without esophagitis; I49.5 Sick sinus syndrome; G47.33 Obstructive sleep apnea (adult) (pediatric); E03.9 Hypothyroidism, unspecified; F32.A Depression, unspecified; E13.9 Other specified diabetes mellitus without complications; E86.0 Dehydration; W18.30XA Fall on same level, unspecified, initial encounter; I48.0 Paroxysmal atrial fibrillation; B96.20 Unspecified Escherichia coli [E. coli] as the cause of diseases classified elsewhere; Z88.5 Allergy status to narcotic agent; Z88.0 Allergy status to penicillin; Z95.0 Presence of cardiac pacemaker; Z11.52 Encounter for screening for COVID-19
CPT/HCPCS: 36415; 36416; 51701; 70450; 71045; 71260; 72125; 74177; 76705; 80048; 80053; 80074; 80162; 80177; 81001; 82550; 82962; 83605; 83690; 83735; 83880; 84100; 84146; 84443; 84478; 84484; 85025; 86140; 87077; 87086; 87186; 87637; 92507; 92523; 93005; 93312; 93320; 93325; 96365; 96366; 96375; 96376; 99285; A4222; J0283; J1160; J1335; J1940; J1953; J2185; J2250; J2405; J2470; J2704; J3010; J3490; J9999

== ENCOUNTER → 2025-01-23 08:17 | Outpatient (BNVA) | payer MEDICARE, OTHER, SELFPAY | PROVIDERS: PCP Registered Nurse; Visit Provider Nurse Practitioner Family | DX: I50.23 Acute on chronic systolic (congestive) heart failure (principal); I48.0 Paroxysmal atrial fibrillation | CPT/HCPCS: 99214 ==

== ENCOUNTER 2025-02-11 16:11 | Emergency (ER) | payer MEDICARE, OTHER, SELFPAY ==
[2025-02-11 16:11] VITALS: BP 150/93; PULSE 77; RESP 18; TEMP 36.3; O2SAT 94
--- NOTE | 2025-02-11 16:44 | ECG_ITS ---
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 Measurements Intervals Star Rate: 79 P: 0 SD: 0 QRS: 4 QRSD: 103 T: 155 QT: 398 QTc: 457 Interpretive Statements Atrial fibrillation with demand V pacing ELECTRONIC VENTRICULAR PACEMAKER -- CONTOUR ANALYSIS BASED ON INTRINSIC RHYTHM SEPTAL MYOCARDIAL INFARCTION , PROBABLY OLD [40+ ms Q WAVE IN V1/V2] MODERATE T-WAVE ABNORMALITY, CONSIDER LATERAL ISCHEMIA [-0.1+ mV T-WAVE IN I/aVL/V5/V6] MODERATE T-WAVE ABNORMALITY, CONSIDER INFERIOR ISCHEMIA [-0.1+ mV T-WAVE IN II/aVF] WARNING: DATA QUALITY MAY AFFECT INTERPRETATION INTERPRETATION BASED ON A DEFAULT AGE OF 40 YEARS Compared to ECG 01/01/2025 14:49:24.T-wave abnormality now present.Possible ischemia now present.Atrial flu. ST (T wave) deviation no longer present.Myocardial infarct finding still present Electronically Signed On 02-12-2025 18:51:22 CDT by Micah Coleman M.D. [email or web address]
--- NOTE | 2025-02-11 16:44 | XRR_ITS ---
PROCEDURE INFORMATION: Exam: XR Chest Exam date and time: 02/11/2025 4:54 PM Age: 79 years old Clinical indication: Pain; Chest pressure; Additional info: Chest pain TECHNIQUE: Imaging protocol: Radiologic exam of the chest. Views: 1 view. COMPARISON: CT chest abdpel w/*[id number] 12/27/2024 7:49 PM FINDINGS: Tubes, catheters and devices: Cardiac pacemaker on the left with leads in satisfactory position. Lungs: Unremarkable. No consolidation or mass. Pleural spaces: Unremarkable. No pleural effusion. No pneumothorax. Heart/Mediastinum: Prominent cardiomegaly is noted. Bones/joints: Unremarkable. XR/XR chest 1V portable [id number] IMPRESSION: Stable cardiomegaly
[2025-02-11 16:55] LABS: Basophils % 0.5 %; Eosinophils # 0.1 10^3/uL (0.0-0.8); Eosinophils % 1.6 %; Hematocrit 40.7 % (36-47); Lymphocytes # 1.4 10^3/uL (0.8-4.8); Lymphocytes % 24.2 %; Mean Corpuscular Hemoglobin 29.3 pg (27-33); Mean Corpuscular Volume 94.7 fl (85-98); Mean Platelet Volume 11.7 fL (7.4-10.4); Monocytes # 0.6 10^3/uL (0.2-0.9); Monocytes % 10.4 %; Neutrophils # 3.63 10^3/uL (1.8-7.7); Neutrophils % 63.1 %; Nucleated Red Blood Cells % 0 %; Platelet Count 202 10^3/cmm (157-399); Red Cell Distribution Width 17.2 % (12.1-15.1); White Blood Count 5.75 10^3/uL (3.29-11.43)
--- NOTE | 2025-02-11 16:57 | W.ED.CHESTPA ---
HPI - Chest Pain General: Chief Complaint: Chest Pain Stated Complaint: chest pain Time Seen by Provider: 02/11/25 16:24 Source: patient Limitations: no limitations History of Present Illness: 79-year-old female with a history of stroke with residual expressive aphasia, atrial fibrillation on amiodarone and Xarelto, diabetes 1.5, severe obstructive sleep apnea, congestive heart failure, cognitive impairment, chronic hypoxic respiratory failure on 2 L of oxygen, fall risk, among other comorbid conditions who presents to the emergency department with daughter. The patient's expressive aphasia makes it hard to interpret what she is saying. However, it seems that she has had some pain in her right upper back and is tender in the trapezius area. Sometimes she can feel it radiating towards her right posterior neck. She pointed to her left 3rd, 4th and 5th fingers indicating that they were having some symptoms but have now resolved. She does have some pain with moving her neck left and right. She does not report any chest discomfort to me. I think the concern was by those around her that she might be having some cardiac equivalents. During my review of systems I also found out that she sometimes has dental pain in her lower incisors, has frequent UTIs, occasionally feels nauseated. She does not endorse any of stomach pain, vomiting, or stool changes. Associated symptoms: Deny abdominal pain, dyspnea, fever(s), syncope or vomiting Related Data Home Medications ?Medication ?Instructions ?Recorded ?Confirmed pantoprazole 40 mg tablet,delayed 40 mg PO QAM 03/14/24 02/11/25 release aluminum-mag hydroxide-simethicone 10 ml PO Q4H PRN Indigestion 10/26/24 02/11/25 200 mg-200 mg-20 mg/5 mL oral susp docusate sodium 100 mg capsule 100 mg PO BID 10/26/24 02/11/25 rivaroxaban 20 mg tablet (Xarelto) 20 mg PO DAILY 10/26/24 02/11/25 venlafaxine 150 mg 150 mg PO QPM 10/26/24 02/11/25 capsule,extended release 24 hr zonisamide 100 mg capsule 200 mg PO BEDTIME 10/26/24 02/11/25 Held on 01/04/25. Instructions: Resume on 02/19/25. hold until you seed dr Betsy randall zonisamide 100 mg capsule 300 mg PO QAM 10/26/24 02/11/25 Held on 01/04/25. Instructions: Resume on 02/19/25. hold until you see dr randall ondansetron HCl 4 mg tablet 4 mg PO Q4H PRN Nausea And Vomiting 11/24/24 02/11/25 acetaminophen 500 mg tablet 500 mg PO BID PRN Pain 12/28/24 02/11/25 bisacodyl 10 mg rectal suppository 10 mg TN DAILY PRN Constipation 12/28/24 02/11/25 (Dulcolax (bisacodyl)) magnesium hydroxide 400 mg/5 mL 30 ml PO DAILY PRN Constipation 12/28/24 02/11/25 oral suspension (Milk of Magnesia) acetaminophen 325 mg tablet 650 mg PO Q4H PRN pain or fever 02/11/25 02/11/25 amiodarone 400 mg tablet 400 mg PO DAILY 02/11/25 02/11/25 atorvastatin 80 mg tablet 80 mg PO BEDTIME 02/11/25 02/11/25 levetiracetam 750 mg tablet 750 mg PO Q12H 02/11/25 02/11/25 metoprolol tartrate 100 mg tablet 100 mg PO BID 02/11/25 02/11/25 Previous Rx's ?Medication ?Instructions ?Recorded aspirin 81 mg tablet,delayed 81 mg PO DAILY@0800 #60 tabs 03/14/24 release (Adult Low Dose Aspirin) levothyroxine 112 mcg tablet 112 mcg PO DAILY #30 tabs 10/27/24 doxycycline hyclate 100 mg capsule 100 mg PO BID 10 days #20 caps 02/11/25 Allergies Allergy/AdvReac Type Severity Reaction Status Date / Time Penicillins Allergy Unknown Unknown Verified 02/11/25 16:22 tetanus and diphtheria Allergy Unknown Verified 02/11/25 16:22 toxoids morphine AdvReac Intermediate ADR-Confusi Verified 02/11/25 16:22 on penicillin G procaine AdvReac unknown Verified 02/11/25 16:22 Review of Systems General: Reports: Other (Challenging due to expressive aphasia) Const: Denies: fever(s), chills or body aches Eyes: Denies: change in vision ENMT: Denies: throat pain Card: Denies: chest pain, edema or syncope Resp: Denies: dyspnea or productive cough GI: Denies: abdominal pain, vomiting or diarrhea : Denies: flank pain or dysuria Musc: Denies: extremity pain or extremity swelling Skin/Breast: Denies: rash or erythema Neuro: Denies: headache(s), weakness in extremities, lack of coordination or difficulty walking PFS ED PFSH: Medical History (Updated 02/11/25 @ 18:02 by Dorian Peralta MD) Paroxysmal A-fib CVA (cerebral vascular accident) UTI (urinary tract infection) Hypotension Aphasia Multiple falls Altered mental status Acute cystitis Hypersomnia TIA (transient ischemic attack) Recurrent UTI Medication noncompliance due to cognitive impairment Need for assistance with personal care Need for assistance due to reduced mobility Mild cognitive impairment with memory loss Oxygen dependent ANGIE (acute kidney injury) Hypertension Transient cerebral ischemia Chronic migraine without aura, intractable, with status migrainosus GERD (gastroesophageal reflux disease) 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) Dementia Obstructive sleep apnea Sleep apnea Type 2 diabetes mellitus Tachy-martin syndrome Non-insulin dependent diabetes mellitus -A1c (12/2019): 8.3 -Accucheks, ISS, hypoglycemia precautions -consistent carb diet as tolerated -takes metformin at home, can resume on d/c Drug-induced bradycardia Digoxin was discontinued along beta-alexandrea Atrial flutter Diastolic heart failure Generalized epilepsy CHF (congestive heart failure) Atrial fibrillation Severe obstructive sleep apnea Hypothyroidism Depressed Atrial dysrhythmia Diabetes 1.5, managed as type 2 Sleep apnea in adult Stroke due to embolism of left middle cerebral artery -prior hx of L MCA CVA in 05/2019; did not receive tPA -has been f/u with Dr. Randall -attributed to atrial fibrillation -on ASA, statin, AC with Eliquis -has residual cognitive impairment Seizure Heart failure Surgical History Status post cardiac pacemaker procedure No pertinent past surgical history Family History Sister Diabetes Father Heart disease Mother Heart disease Social History Smoking and tobacco/nicotine status: former use of tobacco/nicotine Alcohol intake: never Substance/Drug Use: never Female Reproductive History: Date of last menstrual period: 02/04/21 Physical Exam Narrative: EXAM NARRATIVE: Alert, nontoxic, expressive aphasia Tenderness in the right trapezius region and rhomboid region. Some pain with range of motion of the neck to the far left and far right. Cardiopulmonary exam is unremarkable except for an irregular rhythm. On telemetry she appears to have intermittent ventricular pacing and she does have a pacemaker noted on her left anterior chest wall. Const: COMMON NORMALS: alert and well nourished EXAM LIMITATIONS: no altered mental status GENERAL APPEARANCE: cooperative, well kempt and well developed ORIENTATION/CONSCIOUSNESS: Yes awake; not confused HENMT: COMMON NORMALS: normocephalic, atraumatic, external ears normal and Normal external nose present HEAD & SCALP: normal to inspection, normocephalic and atraumatic FACE & SINUS: face symmetric NOSE: Normal external nose present EXTERNAL EAR: Yes external ears normal MOUTH: lip normal; no muffled voice Eye: COMMON NORMALS: EOMs intact bilaterally and conjunctivae normal GENERAL EYE: appearance normal, both eyes and all related structures CONJUNCTIVA: Yes conjunctivae normal Neck/C-Spine: COMMON NORMALS: no JVD GENERAL: Yes normal visual inspection and Yes trachea midline Resp: COMMON NORMALS: normal respiratory effort, No use of accessory muscles and clear to auscultation bilaterally EFFORT & INSPECTION: Yes able to speak in complete sentences and Yes symmetric chest movement AUSCULTATION: clear to auscultation bilaterally Cardio: COMMON NORMALS: no JVD and regular rate RATE: regular rate PERIPHERAL PULSES: radial pulses present GI: COMMON NORMALS: Soft to palpation INSPECTION: Yes normal to inspection PALPATION: Yes Soft to palpation, No Tenderness to palpation present (GI) and No Guarding due to palpation present (GI) Back/Pelvis: COMMON NORMALS: thoraco-lumbar ROM normal Extremity: COMMON NORMALS: normal to inspection GENERAL: Yes normal exam except as noted Neuro: COMMON NORMALS: moves all extremities SENSORIUM/ORIENTATION: Yes alert Psych: COMMON NORMALS: mental status grossly normal, Normal thought process present, cooperative and normal affect APPEARANCE: Yes well kempt THOUGHT PROCESS: Normal thought process present Skin: COMMON NORMALS: no rashes or lesions noted, turgor normal and no jaundice GENERAL SKIN EXAM: no rashes or lesions noted and turgor normal Course Vital Signs: Vital signs: Vital Signs Temperature 97.4 F L 02/11/25 16:11 Pulse Rate 88 02/11/25 18:33 Respiratory Rate 16 02/11/25 17:59 Blood Pressure 160/95 02/11/25 18:33 Pulse Oximetry 96 02/11/25 18:33 Oxygen Delivery Me thod Room Air 02/11/25 17:59 Oxygen Flow Rate 2 02/11/25 16:11 MDM - Chest Pain Medical Decision Making It is not clear to me whether the patient has any cardiac symptoms. The majority of the time she has been explaining it was posterior neck pain and trapezius discomfort. She did explain that she had some sort of symptoms in her left 3rd, 4th and 5th fingers. I am wondering whether these were cervical radiculopathy. She has some pain with turning her neck to the far left and far right. No reported trauma. No midline tenderness. No meningeal signs. I do not know that this is a cardiac presentation but because of her expressive aphasia, I suspect that they were acting out of abundance of caution. She does have atrial fibrillation today. EKG was obtained at 1614. EP interpretation. A-fib, ventricular rate 89, QRS 102, there are some ST and T wave changes noted primarily in lead I, II, and V4 through V6. These changes are not new. In fact they look better today than the previous 2 EKGs. Chest x-ray, 1 view. Mild cardiomegaly. Pacemaker leads in appropriate position. Some minor haziness at the left costophrenic junction. Could not entirely exclude effusion. No change from comparison in December 2024. CBC nonactionable CMP showed mild hypoalbuminemia and hypoproteinemia; blood sugar of 158; minimally elevated alkaline phosphatase; no other concerning findings. Troponin baseline was 24. Repeat 2-hour troponin was 23.7. This is consistent with previous troponin levels. BNP was elevated. However, patient does not have JVD, peripheral edema, tachypnea, rales, pulmonary edema, or other signs of heart failure. She was recently cardioverted for atrial fibrillation and now is in rate controlled A-fib. After considering risk first benefits, I think it is reasonable to leave her as rate controlled A-fib on anticoagulation and antiarrhythmics. Patient's urine analysis was abnormal. I did look through her previous UA results and cultures. She may very well be colonized. It so difficult to speak with her fluently to get her symptoms. She does seem to think she has symptoms of a UTI subjectively. She does not have tachycardia, elevated white blood cell count, abdominal tenderness, flank tenderness, or other signs that it is severe. She has a history of ESBL. Macrobid is sensitive but it is bacteriostatic and often times can precipitate ANGIE. The only other medication we can use orally is doxycycline. Only a percentage of doxycycline is excreted renally. Therefore it is not ideal. However, the alternative would be PICC line and IV antibiotics. Since it is unclear whether she is colonized or truly has an infection, and her renal function is normal, I consulted with the pharmacist. I am going to go ahead and attempt doxycycline twice a day and see if this controls her symptoms. I spoke with her and her family. If she gets lethargy, fever, weakness, nausea, or other signs that she is getting worse then she needs to return to the emergency department for IV antibiotics and PICC line. Lab Data 02/11/25 16:30 02/11/25 17:10 Radiology Impressions Chest X-Ray 02/11/25 16:44 IMPRESSION: Stable cardiomegaly Laboratory Results WBC 5.75 10^3/uL (3.29-11.43) 02/11/25 16:30 RBC 4.30 10^6/uL (3.85-5.65) 02/11/25 16:30 Hgb 12.60 g/dL (11.27-16.99) 02/11/25 16:30 Hct 40.7 % (36-47) 02/11/25 16:30 MCV 94.7 fl (85-98) 02/11/25 16:30 MCH 29.3 pg (27-33) 02/11/25 16:30 MCHC 31.0 g/dL (30-55) 02/11/25 16:30 RDW 17.2 % (12.1-15.1) H 02/11/25 16:30 Plt Count 202 10^3/cmm (157-399) 02/11/25 16:30 MPV 11.7 fL (7.4-10.4) H 02/11/25 16:30 Neut % (Auto) 63.1 % 02/11/25 16:30 Lymph % (Auto) 24.2 % 02/11/25 16:30 [place] % (Auto) 10.4 % 02/11/25 16:30 Eos % (Auto) 1.6 % 02/11/25 16:30 Baso % (Auto) 0.5 % 02/11/25 16:30 Neut # (Auto) 3.63 10^3/uL (1.8-7.7) 02/11/25 16:30 Lymph # (Auto) 1.4 10^3/uL (0.8-4.8) 02/11/25 16:30 [place] # (Auto) 0.6 10^3/uL (0.2-0.9) 02/11/25 16:30 Eos # (Auto) 0.1 10^3/uL (0.0-0.8) 02/11/25 16:30 Baso # (Auto) 0.0 10^3/uL (0.0-0.1) 02/11/25 16:30 Nucleated RBC % (auto) 0 % 02/11/25 16: Nucleated RBCs # 0.0 /100WBC 02/11/25 16:30 Sodium 139 mmol/L (136-145) 02/11/25 17:10 Potassium 4.1 mmol/L (3.5-5.1) 02/11/25 17:10 Chloride 108 mmol/L (98-107) H 02/11/25 17:10 Carbon Dioxide 22 mmol/L (22-29) 02/11/25 17:10 Anion Gap 13.1 (5-19) 02/11/25 17:10 BUN 20 mg/dL (8-23) 02/11/25 17:10 Creatinine 0.8 mg/dL (0.5-0.9) 02/11/25 17:10 GFR Calculation Not Reportable 02/11/25 17:10 Glucose 153 mg/dL (65-115) H 02/11/25 17:10 Calculated Osmolality 294 mOsm/kg (285-295) 02/11/25 17:10 Calcium 9.7 mg/dL (8.5-10.5) 02/11/25 17:10 Total Bilirubin 0.2 mg/dL (0.15-1.2) 02/11/25 17:10 AST 15 U/L (0-32) 02/11/25 17:10 ALT 22 U/L (0-33) 02/11/25 17:10 Alkaline Phosphatase 131 U/L (35-105) H 02/11/25 17:10 Troponin T Baseline 24 ng/L (0-10) H 02/11/25 16:30 Troponin T 120 Minute 23.71 ng/L (0-10) H 02/11/25 18:05 Delta Troponin T -0.29 ABS# (0-10) L 02/11/25 18:05 NT-Pro-B Natriuret Pep 84094 pg/mL (0-450) H 02/11/25 17:10 Total Protein 5.8 g/dL (6.6-8.7) L 02/11/25 17:10 Albumin 3.3 g/dL (3.5-5.2) L 02/11/25 17:10 Globulin 2.5 g/dL (1.3-4.6) 02/11/25 17:10 Urine Color Yellow (Yellow) 02/11/25 17:21 Urine Appearance Clear (CLEAR) 02/11/25 17:21 Urine pH 5.5 (5-7) 02/11/25 17:21 Ur Specific [place] 1.019 (1.005-1.030) 02/11/25 17:21 Urine Protein Trace (Negative) A 02/11/25 17:21 Urine Glucose (UA) Negative (Normal) 02/11/25 17: Urine Ketones Negative (Negative) 02/11/25 17:21 Urine Blood Trace (Negative) A 02/11/25 17:21 Urine Nitrate Positive (Negative) A 02/11/25 17:21 Urine Bilirubin Negative (Negative) 02/11/25 17: Urine Urobilinogen 1.0 mg/dL (Negative) 02/11/25 17:21 Ur Leukocyte Esterase 2+ (Negative) A 02/11/25 17:21 Urine RBC 0-2 /hpf (0-2) 02/11/25 17:21 Urine WBC 51-100 /hpf (0-5) H 02/11/25 17:21 Ur Squamous Epith Cells 0-5 /hpf (0-5) 02/11/25 17:21 Amorphous Sediment Not Reportable 02/11/25 17:21 Urine Bacteria 2+ /hpf (NONE) H 02/11/25 17:21 Hyaline Casts 0.40 /lpf 02/11/25 17:21 All radiology interpretation(s) finalized by discharge Discharge Plan Discharge Patient Disposition: Home Clinical Impression: Atrial fibrillation, persistent, ESBL E. coli carrier, Abnormal urinalysis Condition: Stable Prescriptions: New doxycycline hyclate 100 mg capsule 100 mg PO BID 10 Days Qty: 20 0RF No Action ondansetron HCl 4 mg tablet 4 mg PO Q4H PRN (Reason: Nausea And Vomiting) pantoprazole 40 mg tablet,delayed release (DR/EC) 40 mg PO QAM aspirin [Adult Low Dose Aspirin] 81 mg tablet,delayed release (DR/EC) 81 mg PO DAILY@0800 Qty: 60 0RF docusate sodium 100 mg Capsule 100 mg PO BID alum-mag hydroxide-simeth 200-200-20 mg/5 mL Suspension 10 ml PO Q4H PRN (Reason: Indigestion) Rx Instructions: administer between meals and at bedtime venlafaxine 150 mg capsule,extended release 24hr 150 mg PO QPM Xarelto 20 mg tablet 20 mg PO DAILY zonisamide 100 mg Capsule 300 mg PO QAM zonisamide 100 mg Capsule 200 mg PO BEDTIME levothyroxine 112 mcg Tablet 112 mcg PO DAILY Qty: 30 0RF acetaminophen 500 mg Tablet 500 mg PO BID PRN (Reason: Pain) magnesium hydroxide [Milk of Magnesia] 400 mg/5 mL Suspension 30 ml PO DAILY PRN (Reason: Constipation) bisacodyl [Dulcolax (bisacodyl)] 10 mg Suppository 10 mg TN DAILY PRN (Reason: Constipation) atorvastatin 80 mg tablet 80 mg PO BEDTIME acetaminophen 325 mg Tablet 650 mg PO Q4H PRN (Reason: pain or fever) metoprolol tartrate 100 mg tablet 100 mg PO BID amiodarone 400 mg Tablet 400 mg PO DAILY levetiracetam 750 mg tablet 750 mg PO Q12H Discharge Orders: Discharge ED (Routine); Ordered 02/11/25 Ordered By: Dorian Peralta Referrals: Aretha Davies FNP [Primary Care Provider] - 02/16/25 (F/u on urine culture; rate controlled A-fib) Patient Instructions: A-fib (Atrial Fibrillation) (ED), Pain Management Activity Restrictions/Additional Instructions: 1. You are in persistent atrial fibrillation. You have recently had an electrical cardioversion. You are already anticoagulated and on antiarrhythmics. As long as your heart rate is less than 110 bpm at rest, and you do not have any significant shortness of breath or chest discomfort, then you can remain in rate controlled atrial fibrillation. 2. You have an abnormal urine analysis. You have indicated that you thought you had a urinary tract infection. Therefore we will assume that this is symptomatic and you will be treated with antibiotics. The antibiotics that you were given are based on your last culture. Take doxycycline with food and drink. If you do not take it with food and drink you may become nauseated and have throat pain. However, do not take it with dairy products. Dairy products prevent the antibiotic from being absorbed. Please read all discharge instructions and abide by recommendations and return precautions. Make an appointment to follow-up with your primary care doctor as directed for follow-up. Return to ER if getting worse or other emergent symptoms. Print Language: [place] Citizen Coding Level of Care Code ED Construction Grip for Morgan Sanchez
[2025-02-11 17:09] LABS: Troponin(5th) Baseline 24 ng/L (0-10)
[2025-02-11 17:29] LABS: Bilirubin Urine Negative (Negative); Blood Urine Trace (Negative); Glucose Urine UA Negative (Normal); Ketones Urine Negative (Negative); Leukocyte Esterase Urine 2+ (Negative); Nitrate Urine Positive (Negative); Protein Urine Trace (Negative); Specific Gravity, Urine 1.019 (1.005-1.030); Urine Appearance Clear (CLEAR); Urine Color Yellow (Yellow); pH Urine 5.5 (5-7)
[2025-02-11 17:31] LABS: Add Urine Microscopic? YES; Bacteria Urine 2+ /hpf; RBC Urine 0-2 /hpf (0-2); Squamous Epithelial Cell Urine 0-5 /hpf (0-5); WBC Urine 51-100 /hpf (0-5)
[2025-02-11 17:40] LABS: Add Urine Culture? Yes; UA Slide Review UA Slide Review Perf
[2025-02-11 17:44] LABS: Alanine Aminotransferase 22 U/L (0-33); Albumin Level 3.3 g/dL (3.5-5.2); Alkaline Phosphatase 131 U/L (35-105); Anion Gap 13.1 (5-19); Aspartate Amino Transferase 15 U/L (0-32); Blood Urea Nitrogen 20 mg/dL (8-23); Calcium 9.7 mg/dL (8.5-10.5); Carbon Dioxide 22 mmol/L (22-29); Chloride 108 mmol/L (98-107); Creatinine Clr Calc Pharmacy 59.6276; Globulin 2.5 g/dL (1.3-4.6); Glucose 153 mg/dL (65-115); NT Pro B Type Natriuretic Pept 16090 pg/mL (0-450); Osmolality Calculated 294 mOsm/kg (285-295); Potassium 4.1 mmol/L (3.5-5.1); Sodium 139 mmol/L (136-145); Total Bilirubin 0.2 mg/dL (0.15-1.2); Total Protein 5.8 g/dL (6.6-8.7)
[2025-02-11 17:59] VITALS: BP 144/99; PULSE 90; RESP 16; O2SAT 99
[2025-02-11] MEDS: doxycycline 100 mg Tablet PO (18:21)
[2025-02-11 18:33] VITALS: BP 160/95; PULSE 88; O2SAT 96
[2025-02-11 18:33] LABS: Troponin 5 2HR 23.71 ng/L (0-10)
[2025-02-11 18:34] LABS: Troponin 5 2HR Delta -0.29 ABS# (0-10)
== END 2025-02-11 18:34 | disposition home or self-care (01) ==
PROVIDERS: Emergency Provider Emergency Medicine; PCP Registered Nurse
DX: I48.19 Other persistent atrial fibrillation (principal); Z22.358 Carrier of other Enterobacterales; R82.90 Unspecified abnormal findings in urine; Z79.82 Long term (current) use of aspirin; Z87.891 Personal history of nicotine dependence; E11.9 Type 2 diabetes mellitus without complications; I11.0 Hypertensive heart disease with heart failure; I50.30 Unspecified diastolic (congestive) heart failure; Z86.73 Personal history of transient ischemic attack (TIA), and cerebral infarction without residual deficits
CPT/HCPCS: 36415; 51701; 71045; 80053; 81001; 83880; 84484; 85025; 87077; 87086; 87186; 93005; 99285; J9999

== ENCOUNTER → 2025-02-14 11:36 | Outpatient (BNVA) | payer MEDICARE, OTHER, SELFPAY | PROVIDERS: PCP Registered Nurse; Visit Provider Specialist | DX: I63.9 Cerebral infarction, unspecified (principal); G40.309 Generalized idiopathic epilepsy and epileptic syndromes, not intractable, without status epilepticus; G47.10 Hypersomnia, unspecified; I69.320 Aphasia following cerebral infarction; I63.512 Cerebral infarction due to unspecified occlusion or stenosis of left middle cerebral artery; F01.50 Vascular dementia, unspecified severity, without behavioral disturbance, psychotic disturbance, mood disturbance, and anxiety; I42.9 Cardiomyopathy, unspecified | CPT/HCPCS: 99214 ==

== ENCOUNTER 2025-03-13 12:37 | Inpatient (IN) | payer MEDICARE, OTHER, SELFPAY ==
[2025-03-13] VITALS (11 sets, daily range): BP systolic 143–190; BP diastolic 69–128; PULSE 73–97; RESP 14–29; TEMP 36.9–37.1; O2SAT 95–98
--- NOTE | 2025-03-13 12:41 | ECG_ITS ---
[facility] Test Date: 2025-03-13 Pat Name: Gianluca Goode Department: Room: Gender: Female [employer] Supervisor: : [id number] Requested By: Joe Estes Order Number: [id number] Jake MD: Micah Coleman M.D. Measurements Intervals [place] Rate: 75 P: 0 [place]: 0 QRS: 15 QRSD: 98 T: 269 QT: 387 QTc: 435 Interpretive Statements ATRIAL FIBRILLATION SEPTAL MYOCARDIAL INFARCTION , OF INDETERMINATE AGE [40+ ms Q WAVE IN V1/V2] ST DEVIATION AND MODERATE T-WAVE ABNORMALITY, CONSIDER LATERAL ISCHEMIA [-0.1+ mV T-WAVE IN I/aVL/V5/V6] ST DEVIATION AND MODERATE T-WAVE ABNORMALITY, CONSIDER INFERIOR ISCHEMIA [-0.1+ mV T-WAVE IN II/aVF] Compared to ECG 02/11/2025 16:13:37 Ventricular-paced complex(es) or rhythm no longer present Myocardial infarct finding still present T-wave abnormality still present Possible ischemia still present Electronically Signed On 03-13-2025 17:41:53 CDT by Micah Coleman M.D. [id number]
--- NOTE | 2025-03-13 12:44 | XRR_ITS ---
PROCEDURE INFORMATION: Exam: XR Chest Exam date and time: 03/13/2025 12:54 PM Age: 79 years old Clinical indication: Pain; Angina pectoris; Additional info: Chest pain TECHNIQUE: Imaging protocol: Radiologic exam of the chest. Views: 1 view. Total images: 2 COMPARISON: CR (CHEST, ) 02/11/2025 4:54 PM FINDINGS: Tubes, catheters and devices: A pacemaker device is present, its leads in appropriate position. Lungs: Trace bibasilar atelectasis or scar. Pleural spaces: Unremarkable. No pleural effusion. No pneumothorax. Heart/Mediastinum: Heart is enlarged but stable when compared to the prior exam. Vasculature: Mild atherosclerotic disease burden is evident. Bones/joints: Diffuse osteopenia noted. Osseous structures are unchanged from the prior exam. XR/XR chest 1V portable [id number] IMPRESSION: 1. Heart is enlarged but stable when compared to the prior exam. 2. Trace bibasilar atelectasis or scar.
--- NOTE | 2025-03-13 12:48 | W.ED.CHESTPA ---
HPI - Chest Pain General: Chief Complaint: Chest Pain Stated Complaint: Chest Pain Time Seen by Provider: 03/13/25 12:43 History of Present Illness: 79-year-old [facility] with [facility] complaint of [facility]. She was given nitro and aspirin en route. She describes intermittent chest pain patient previous had a stroke is some expressive aphasia so is difficult to get history from her when we contacted the [facility] they states she intermittently complained of chest pain.. They have not really noticed anything that exacerbates or relieves it. She was seen last month for episode of chest pain as well. She history of A-fib with RVR and is currently on Xarelto. No report of blood in the stool no vomiting. Previous cardiac workup last month was negative. Associated symptoms: Deny abdominal pain, dyspnea or fever(s) Related Data Home Medications ?Medication ?Instructions ?Recorded ?Confirmed pantoprazole 40 mg tablet,delayed 40 mg PO QAM 03/14/24 03/13/25 release aluminum-mag hydroxide-simethicone 10 ml PO Q4H PRN Indigestion 10/26/24 03/13/25 200 mg-200 mg-20 mg/5 mL oral susp docusate sodium 100 mg capsule 100 mg PO BID 10/26/24 03/13/25 rivaroxaban 20 mg tablet (Xarelto) 20 mg PO DAILY 10/26/24 03/13/25 ondansetron HCl 4 mg tablet 4 mg PO Q4H PRN Nausea And Vomiting 11/24/24 03/13/25 acetaminophen 500 mg tablet 500 mg PO BID PRN Pain 12/28/24 03/13/25 bisacodyl 10 mg rectal suppository 10 mg NV DAILY PRN Constipation 12/28/24 03/13/25 (Dulcolax (bisacodyl)) magnesium hydroxide 400 mg/5 mL 30 ml PO DAILY PRN Constipation 12/28/24 03/13/25 oral suspension (Milk of Magnesia) acetaminophen 325 mg tablet 650 mg PO Q4H PRN pain or fever 02/11/25 03/13/25 amiodarone 400 mg tablet 400 mg PO DAILY 02/11/25 03/13/25 atorvastatin 80 mg tablet 80 mg PO BEDTIME 02/11/25 03/13/25 levetiracetam 750 mg tablet 750 mg PO Q12H 02/11/25 03/13/25 metoprolol tartrate 100 mg tablet 100 mg PO BID 02/11/25 03/13/25 trazodone 50 mg tablet 25 mg PO BEDTIME 03/13/25 03/13/25 Previous Rx's ?Medication ?Instructions ?Recorded aspirin 81 mg tablet,delayed 81 mg PO DAILY@0800 #60 tabs 03/14/24 release (Adult Low Dose Aspirin) levothyroxine 112 mcg tablet 112 mcg PO DAILY #30 tabs 10/27/24 Allergies Allergy/AdvReac Type Severity Reaction Status Date / Time Penicillins Allergy Unknown Unknown Verified 02/14/25 12:16 tetanus and diphtheria Allergy Unknown Verified 02/14/25 12:16 toxoids morphine AdvReac Intermediate ADR-Confusi Verified 02/14/25 12:16 on penicillin G procaine AdvReac unknown Verified 02/14/25 12:16 Review of Systems Const: Denies: fever(s) or chills Card: Reports: chest pain Resp: Denies: dyspnea GI: Denies: abdominal pain : Denies: dysuria, urinary frequency or urinary urgency Musc: Denies: neck pain or back pain Skin/Breast: Denies: rash PFSH ED PFSH: Medical History Paroxysmal A-fib CVA (cerebral vascular accident) UTI (urinary tract infection) Hypotension Aphasia Multiple falls Altered mental status Acute cystitis Hypersomnia TIA (transient ischemic attack) Recurrent UTI Medication noncompliance due to cognitive impairment Need for assistance with personal care Need for assistance due to reduced mobility Mild cognitive impairment with memory loss Oxygen dependent ANGIE (acute kidney injury) Hypertension Transient cerebral ischemia Chronic migraine without aura, intractable, with status migrainosus GERD (gastroesophageal reflux disease) 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) Dementia Obstructive sleep apnea Sleep apnea Type 2 diabetes mellitus Tachy-martin syndrome Non-insulin dependent diabetes mellitus -A1c (12/2019): 8.3 -Accucheks, ISS, hypoglycemia precautions -consistent carb diet as tolerated -takes metformin at home, can resume on d/c Drug-induced bradycardia Digoxin was discontinued along beta-alexandrea Atrial flutter Diastolic heart failure Generalized epilepsy CHF (congestive heart failure) Atrial fibrillation Severe obstructive sleep apnea Hypothyroidism Depressed Atrial dysrhythmia Diabetes 1.5, managed as type 2 Sleep apnea in adult Stroke due to embolism of left middle cerebral artery -prior hx of L MCA CVA in 05/2019; did not receive tPA -has been f/u with Dr. Randall -attributed to atrial fibrillation -on ASA, statin, AC with Eliquis -has residual cognitive impairment Seizure Heart failure Surgical History Status post cardiac pacemaker procedure No pertinent past surgical history Family History Sister Diabetes Father Heart disease Mother Heart disease Social History (Updated 03/13/25 @ 15:47 by Mark Qureshi MD) Smoking and tobacco/nicotine status: former use of tobacco/nicotine Quit status (tobacco/nicotine): has quit using Former quit date comment: 30 years ago after 1 pack/day for 10 years Alcohol intake: never Substance/Drug Use: never Additional social history: She wants DNR status as discussed today with patient and sister Brooke on 03/13/2025 Physical Exam Const: GENERAL APPEARANCE: cooperative and comfortable ORIENTATION/CONSCIOUSNESS: Yes awake HENMT: COMMON NORMALS: normocephalic, atraumatic and hearing grossly normal bilaterally HEAD & SCALP: normocephalic and atraumatic Resp: COMMON NORMALS: normal respiratory effort, No retractions, No use of accessory muscles and clear to auscultation bilaterally AUSCULTATION: clear to auscultation bilaterally Cardio: COMMON NORMALS: regular rate, regular rhythm and No murmurs present (Cardio) RATE: regular rate RHYTHM: regular rhythm GI: COMMON NORMALS: Soft to palpation and No hepatosplenomegaly present AUSCULTATION: Yes normoactive bowel sounds PALPATION: Yes Soft to palpation, No Tenderness to palpation present (GI), No Guarding due to palpation present (GI) and Yes No hepatosplenomegaly present Extremity: COMMON NORMALS: normal to inspection, capillary refill normal, no clubbing, cyanosis or edema, no calf tenderness and no pedal edema Skin: COMMON NORMALS: no rashes or lesions noted GENERAL SKIN EXAM: no rashes or lesions noted Course Vital Signs: Vital signs: Vital Signs Temperature 98.8 F 03/13/25 12:41 Pulse Rate 80 03/13/25 13:30 Respiratory Rate 17 03/13/25 13:30 Blood Pressure 162/118 03/13/25 13:30 Pulse Oximetry 98 03/13/25 13:30 MDM - Chest Pain Medical Decision Making Initial EKG shows ST depression T wave inversion in 2 3 aVF, as well as V4 [address] elevation rate of 75. Initial troponin 21 have resolved after half Trope. Discussed with clinical mental health counselor and with the hospitalist will admit ordered 2.5 mg of IV metoprolol. Place patient on CSU. Medical Records I reviewed the patient's medical records. Lab Data I reviewed the patient's lab results. 03/13/25 12:54 03/13/25 12:54 Radiology Impressions Chest X-Ray 03/13/25 12:44 IMPRESSION: 1. Heart is enlarged but stable when compared to the prior exam. 2. Trace bibasilar atelectasis or scar. Laboratory Results WBC 6.36 10^3/uL (3.29-11.43) 03/13/25 12:54 RBC 4.20 10^6/uL (3.85-5.65) 03/13/25 12:54 Hgb 12.50 g/dL (11.27-16.99) 03/13/25 12:54 Hct 41.6 % (36-47) 03/13/25 12:54 MCV 99.0 fl (85-98) H 03/13/25 12:54 MCH 29.8 pg (27-33) 03/13/25 12:54 MCHC 30.0 g/dL (30-55) 03/13/25 12:54 RDW 16.9 % (12.1-15.1) H 03/13/25 12:54 Plt Count 195 10^3/cmm (157-399) 03/13/25 12:54 MPV 11.6 fL (7.4-10.4) H 03/13/25 12:54 Neut % (Auto) 65.4 % 03/13/25 12:54 Lymph % (Auto) 21.9 % 03/13/25 12:54 Hettinger % (Auto) 10.4 % 03/13/25 12:54 Eos % (Auto) 1.4 % 03/13/25 12:54 Baso % (Auto) 0.6 % 03/13/25 12:54 Neut # (Auto) 4.16 10^3/uL (1.8-7.7) 03/13/25 12:54 Lymph # (Auto) 1.4 10^3/uL (0.8-4.8) 03/13/25 12:54 [place] # (Auto) 0.7 10^3/uL (0.2-0.9) 03/13/25 12:54 Eos # (Auto) 0.1 10^3/uL (0.0-0.8) 03/13/25 12:54 Baso # (Auto) 0.0 10^3/uL (0.0-0.1) 03/13/25 12:54 Nucleated RBC % (auto) 0 % 03/13/25 12:54 Nucleated RBCs # 0.0 /100WBC 03/13/25 12:54 Sodium 142 mmol/L (136-145) 03/13/25 12:54 Potassium 4.8 mmol/L (3.5-5.1) 03/13/25 12:54 Chloride 105 mmol/L (98-107) 03/13/25 12:54 Carbon Dioxide 27 mmol/L (22-29) 03/13/25 12:54 Anion Gap 14.8 (5-19) 03/13/25 12:54 BUN 19 mg/dL (8-23) 03/13/25 12:54 Creatinine 0.9 mg/dL (0.5-0.9) 03/13/25 12:54 GFR Calculation Not Reportable 03/13/25 12:54 Glucose 185 mg/dL (65-115) H 03/13/25 12:54 Calculated Osmolality 301 mOsm/kg (285-295) H 03/13/25 12:54 Calcium 9.8 mg/dL (8.5-10.5) 03/13/25 12:54 Total Bilirubin 0.3 mg/dL (0.15-1.2) 03/13/25 12:54 AST 45 U/L (0-32) H 03/13/25 12:54 ALT 59 U/L (0-33) H 03/13/25 12:54 Alkaline Phosphatase 149 U/L (35-105) H 03/13/25 12:54 Troponin T Baseline 22 ng/L (0-10) H 03/13/25 12:54 Troponin T 120 Minute 23.52 ng/L (0-10) H 03/13/25 14:54 Delta Troponin T 1.52 ABS# (0-10) 03/13/25 14:54 Total Protein 6.0 g/dL (6.6-8.7) L 03/13/25 12:54 Albumin 3.7 g/dL (3.5-5.2) 03/13/25 12:54 Globulin 2.3 g/dL (1.3-4.6) 03/13/25 12:54 All radiology interpretation(s) finalized by discharge Discharge Plan Discharge Patient Disposition: Placed in Observation Admit Provider: Mark Qureshi Clinical Impression: Unstable angina pectoris, Paroxysmal A-fib, History of CVA in adulthood, Acute electrocardiogram changes Coding Level of Care Code ED Blockers Skiver for Morgan Sanchez
[2025-03-13 13:00] LABS: Basophils % 0.6 %; Eosinophils # 0.1 10^3/uL (0.0-0.8); Eosinophils % 1.4 %; Hematocrit 41.6 % (36-47); Lymphocytes # 1.4 10^3/uL (0.8-4.8); Lymphocytes % 21.9 %; Mean Corpuscular Hemoglobin 29.8 pg (27-33); Mean Platelet Volume 11.6 fL (7.4-10.4); Monocytes # 0.7 10^3/uL (0.2-0.9); Monocytes % 10.4 %; Neutrophils # 4.16 10^3/uL (1.8-7.7); Neutrophils % 65.4 %; Nucleated Red Blood Cells % 0 %; Platelet Count 195 10^3/cmm (157-399); Red Cell Distribution Width 16.9 % (12.1-15.1); White Blood Count 6.36 10^3/uL (3.29-11.43)
[2025-03-13] MEDS: nitroglycerin 1 gm/inch oint Pkt 1 INCH TOPICAL (13:12)
[2025-03-13 13:24] LABS: Troponin(5th) Baseline 22 ng/L (0-10)
[2025-03-13 13:37] LABS: Alanine Aminotransferase 59 U/L (0-33); Albumin Level 3.7 g/dL (3.5-5.2); Alkaline Phosphatase 149 U/L (35-105); Blood Urea Nitrogen 19 mg/dL (8-23); Calcium 9.8 mg/dL (8.5-10.5); Carbon Dioxide 27 mmol/L (22-29); Chloride 105 mmol/L (98-107); Creatinine Clr Calc Pharmacy 56.4506; Globulin 2.3 g/dL (1.3-4.6); Glucose 185 mg/dL (65-115); Osmolality Calculated 301 mOsm/kg (285-295); Sodium 142 mmol/L (136-145); Total Bilirubin 0.3 mg/dL (0.15-1.2)
[2025-03-13 13:38] LABS: Anion Gap 14.8 (5-19); Aspartate Amino Transferase 45 U/L (0-32); Potassium 4.8 mmol/L (3.5-5.1)
--- NOTE | 2025-03-13 14:06 | ECG_ITS ---
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 Measurements Intervals [place] Rate: 75 P: 0 CA: 0 QRS: 12 QRSD: 104 T: 265 QT: 386 QTc: 434 Interpretive Statements Atrial fibrillation with demand V pacing ELECTRONIC VENTRICULAR PACEMAKER -- CONTOUR ANALYSIS BASED ON INTRINSIC RHYTHM SEPTAL MYOCARDIAL INFARCTION , OF INDETERMINATE AGE [40+ ms Q WAVE IN V1/V2] ST DEVIATION AND MODERATE T-WAVE ABNORMALITY, CONSIDER LATERAL ISCHEMIA [-0.1+ mV T-WAVE IN I/aVL/V5/V6] ST DEVIATION AND MODERATE T-WAVE ABNORMALITY, CONSIDER INFERIOR ISCHEMIA [-0.1+ mV T-WAVE IN II/aVF] Compared to ECG 03/13/2025 12:41:33 Atrial flutter no longer present Myocardial infarct finding still present T-wave abnormality still present Possible ischemia still present Electronically Signed On 03-13-2025 17:48:18 CDT by Micah Coleman M.D. [email or web address]
[2025-03-13 15:21] LABS: Troponin 5 2HR 23.52 ng/L (0-10); Troponin 5 2HR Delta 1.52 ABS# (0-10)
[2025-03-13] MEDS: metoprolol tartrate 1 mg/1 mL SDV 5 mL 10 MG IVP (15:26)
[2025-03-13] MEDS: hyDRALAzine 20 mg/mL INJ 1 mL 10 MG IVP (15:29)
--- NOTE | 2025-03-13 15:35 | PM.HP ---
Providers/Chief Complaint Admitting Physician: Mark Qureshi MD Primary Care Provider: Home Philip DO Chief Complaint: Chest Pain History of Present Illness Gianluca Goode is a 79 year old female with history of multiple strokes starting 10 years ago. She has had 3-4 strokes over the course that time with primary left sided hemiplegia. Patient has expressive aphasia and much of her history is given by her sister Brooke who is present at bedside. Brooke says that for the last 10 years patient has had seizures and has had 10-12 some of them being very severe. She Bronson thinks this has caused some brain dysfunction. Patient is not able to give a very detailed history but it was understood that she had chest pain at the nursing facility today so she was sent to the ER. Brooke states that she has had chest pain for about 5 days off and on and her blood pressure is high as high as 193/123 heart rate 88. Rhythm is A-fib with irregular rhythm controlled rate and an frequent PVCs some of the time bigeminy Review of Systems Narrative: Review of systems is difficult patient reports minimal chest pain currently or absent chest pain GI patient denies nausea vomiting she denies diarrhea states there is some constipation but her bowel movements are in the evening once daily Abdomen patient reports she has had abdominal pain across the lower abdomen for period of months. This history is actually given by Brooke patient agrees Medications/Allergies Home Medications ?Medication ?Instructions ?Recorded ?Confirmed ?Last Taken ?Type aspirin 81 mg tablet,delayed 81 mg PO DAILY@0800 #60 tabs 03/14/24 03/13/25 03/13/25 Rx release (Adult Low Dose Aspirin) pantoprazole 40 mg tablet,delayed 40 mg PO QAM 03/14/24 03/13/25 03/13/25 History release aluminum-mag hydroxide-simethicone 10 ml PO Q4H PRN Indigestion 10/26/24 03/13/25 Unknown History 200 mg-200 mg-20 mg/5 mL oral susp docusate sodium 100 mg capsule 100 mg PO BID 10/26/24 03/13/25 03/13/25 History rivaroxaban 20 mg tablet (Xarelto) 20 mg PO DAILY 10/26/24 03/13/25 03/13/25 History levothyroxine 112 mcg tablet 112 mcg PO DAILY #30 tabs 01/01/1603/13/25 03/13/25 Rx ondansetron HCl 4 mg tablet 4 mg PO Q4H PRN Nausea And Vomiting 11/24/24 03/13/25 01/26/25 History acetaminophen 500 mg tablet 500 mg PO BID PRN Pain 12/28/24 03/13/25 01/25/25 History bisacodyl 10 mg rectal suppository [address] DAILY PRN Constipation 12/28/24 03/13/25 Unknown History (Dulcolax (bisacodyl)) magnesium hydroxide 400 mg/5 mL 30 ml PO DAILY PRN Constipation 12/28/24 03/13/25 Unknown History oral suspension (Milk of Magnesia) acetaminophen 325 mg tablet 650 mg PO Q4H PRN pain or fever 02/11/25 03/13/25 Unknown History amiodarone 400 mg tablet 400 mg PO DAILY 02/11/25 03/13/25 03/13/25 History atorvastatin 80 mg tablet 80 mg PO BEDTIME 02/11/25 03/13/25 03/12/25 History levetiracetam 750 mg tablet 750 mg PO Q12H 02/11/25 03/13/25 03/13/25 History metoprolol tartrate 100 mg tablet 100 mg PO BID 02/11/25 03/13/25 03/13/25 History trazodone 50 mg tablet 25 mg PO BEDTIME 03/13/25 03/13/25 03/12/25 History Allergies Allergy/AdvReac Type Severity Reaction Status Date / Time Penicillins Allergy Unknown Unknown Verified 02/14/25 12:16 tetanus and diphtheria Allergy Unknown Verified 02/14/25 12:16 toxoids morphine AdvReac Intermediate ADR-Confusi Verified 02/14/25 12:16 on penicillin G procaine AdvReac unknown Verified 02/14/25 12:16 PFSH Acute PFSH: Medical History Paroxysmal A-fib CVA (cerebral vascular accident) UTI (urinary tract infection) Hypotension Aphasia Multiple falls Altered mental status Acute cystitis Hypersomnia TIA (transient ischemic attack) Recurrent UTI Medication noncompliance due to cognitive impairment Need for assistance with personal care Need for assistance due to reduced mobility Mild cognitive impairment with memory loss Oxygen dependent ANGIE (acute kidney injury) Hypertension Transient cerebral ischemia Chronic migraine without aura, intractable, with status migrainosus GERD (gastroesophageal reflux disease) 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) Dementia Obstructive sleep apnea Sleep apnea Type 2 diabetes mellitus Tachy-martin syndrome Non-insulin dependent diabetes mellitus -A1c (12/2019): 8.3 -Accucheks, ISS, hypoglycemia precautions -consistent carb diet as tolerated -takes metformin at home, can resume on d/c Drug-induced bradycardia Digoxin was discontinued along beta-alexandrea Atrial flutter Diastolic heart failure Generalized epilepsy CHF (congestive heart failure) Atrial fibrillation Severe obstructive sleep apnea Hypothyroidism Depressed Atrial dysrhythmia Diabetes 1.5, managed as type 2 Sleep apnea in adult Stroke due to embolism of left middle cerebral artery -prior hx of L MCA CVA in 05/2019; did not receive tPA -has been f/u with Dr. Randall -attributed to atrial fibrillation -on ASA, statin, AC with Eliquis -has residual cognitive impairment Seizure Heart failure Surgical History Status post cardiac pacemaker procedure No pertinent past surgical history Family History Sister Diabetes Father Heart disease Mother Heart disease Social History (Updated 03/13/25 @ 15:47 by Mark Qureshi MD) Smoking and tobacco/nicotine status: former use of tobacco/nicotine Quit status (tobacco/nicotine): has quit using Former quit date comment: 30 years ago after 1 pack/day for 10 years Alcohol intake: never Substance/Drug Use: never Additional social history: She wants DNR status as discussed today with patient and sister Brooke on 03/13/2025 Vitals/I&O/Wt Last Vital Signs Temp 98.8 F 03/13/25 12:41 Pulse 80 03/13/25 13:30 Resp 17 03/13/25 13:30 BP 162/118 03/13/25 13:30 Pulse Ox 98 03/13/25 13:30 Weight last 48 hrs Weight 85.275 kg Physical Exam Narrative: General Well-developed well-nourished overweight female in no acute cardiopulmonary distress CV irregular rhythm rate is controlled Lungs some crackles heard in the left lung robles Neck no bruits Abdomen positive bowel sounds soft Calves no edema no asymmetry Data 03/13/25 12:54 05/20/25 12:54 CXR: My impression: Cardiomegaly EKG 1: My Interpretation: A-fib with inferolateral ischemia A&P Assessment and plan (1) Chest pain due to myocardial ischemia: Patient is treated with aspirin, continuation of her apixaban and Atorvastatin. She is on high-dose metoprolol 100 mg p.o. twice a day. At given 10 mg IVP here as well as hydralazine 10 mg IVP for blood pressure [id number]. She is also on Nitropaste (2) Paroxysmal A-fib: Continue apixaban and amiodarone 400 mg daily. Chest x-ray shows cardiomegaly. Will give 20 mg IV furosemide (3) Aphasia as late effect of stroke: Communication is difficult and in part through with the patient's sister. We discussed CODE STATUS. Patient was initially uncertain but then decided on DO NOT RESUSCITATE status (4) Generalized seizure disorder: Continue levetiracetam Plan A-fib with irregular rhythm PDMP PDMP Reviewed: Not Reviewed Attestations Medical Necessity Statement*: Patient will be admitted the hospital and anticipate that she will be here greater than 2 midnights. Time Spent in Patient Care: 70 minutes spent in evaluation coronation care of this patient today Coding Level of Care Code 28421 Diagnoses Chest pain due to myocardial ischemia I25.9 Paroxysmal A-fib I48.0 Aphasia as late effect of stroke I69.320 Generalized seizure disorder G40.309 Time Spent (min) 70
--- NOTE | 2025-03-13 15:43 | ECG_ITS ---
[facility] Test Date: 2025-03-13 Pat Name: Gianluca Goode Department: Room: Gender: Female Labels Molder: : 1945 Requested By: Joe Estes Order Number: [id number] Jake MD: Micah Coleman M.D. Measurements Intervals [place] Rate: 90 P: 0 CO: 0 QRS: 29 QRSD: 101 T: -89 QT: 383 QTc: 469 Interpretive Statements ATRIAL FIBRILLATION SEPTAL MYOCARDIAL INFARCTION , OF INDETERMINATE AGE [40+ ms Q WAVE IN V1/V2] ST DEVIATION AND MODERATE T-WAVE ABNORMALITY, CONSIDER LATERAL ISCHEMIA [-0.1+ mV T-WAVE IN I/aVL/V5/V6] ST DEVIATION AND MODERATE T-WAVE ABNORMALITY, CONSIDER INFERIOR ISCHEMIA [-0.1+ mV T-WAVE IN II/aVF] Compared to ECG 03/13/2025 14:06:55 Ventricular-paced complex(es) or rhythm no longer present Myocardial infarct finding still present T-wave abnormality still present Possible ischemia still present Electronically Signed On 03-13-2025 17:47:06 CDT by Micah Coleman M.D. [email or web address]
--- NOTE | 2025-03-13 16:07 | P.CONIM_ITS ---
<Statement entered by Oanh Caballero MD - 03/13/25 20:53> Patient was evaluated and cared for in conjunction with an advanced practice practitioner. I personally examined the patient and reviewed the chart and all pertinent data including imaging, telemetry, and laboratory results. I discussed the patient in detail with the advanced practice practitioner. Please see their note for complete H&P testing result and agreed upon plan of care for the patient. 79-year-old female past medical history significant for history of CVA, dementia, aphasia hypertension, atrial fibrillation status post cardioversion, permanent pacemaker, severe LV dysfunction with ejection fraction of 20% which has been recently diagnosed on the prior admission when she presented with A-fib with RVR and CHF exacerbation. Patient was diuresed cardioverted and transferred back to the alf. In general patient would like to be treated medically only and has not in favor of any invasive procedure. This time she presented with chest pain, abnormal EKG with inferolateral ST depression interventricular conduction delay without any change from the prior exam, she was also noted to be hypertensive and short of breath. Patient was diuresed and given nitroglycerin with relief of her pain. EKG remains unchanged troponin remains negative within normal limits we have been asked to assist in her care. Patient remained rate controlled. GENERAL: Patient is alert, awake and oriented x3. Aphasic difficult to obtain history HEART: Regular S1 and S2. No murmur, rub or gallop. LUNGS: Decreased breath sound bilaterally. CENTRAL NERVOUS SYSTEM: Grossly nonfocal. EXTREMITIES: Lower extremities with out edema bilaterally. Assessment and plan Severely depressed left ventricular ejection fraction acute on chronic systolic heart failure decompensated type Atrial fibrillation rate controlled on amiodarone History of CVA aphasia Dementia Given her history of recent drop in ejection fraction left heart cath may need to be considered however patient would like to be treated medically only. Currently she is chest pain-free rule out for acute coronary syndrome. She appeared to be volume overloaded therefore we recommend Continue Lasix IV 40 mg once a day Replenish potassium Rule out for acute coronary syndrome Optimize medication for heart failure Will start patient on Entresto Continue beta-alexandrea Further plan will be advised as per progress of the patient and after discussing with the family. Providers/Reason For Consult 2 Consulting Physician/Specialty*: Dr Mackenzie Caballero, cardiology Reason for Consult*: chest pain, elevated troponin Attending Physician: Mark Qureshi MD Primary Care Provider: Home Philip DO History of Present Illness History of Present Illness Gianluca Goode is a 79 year old female with past medical history of CVA, atrial fibrillation/flutter, hypertension, SWETHA, diabetes, systolic heart failure, Medtronic dual-chamber pacemaker. She was admitted to the hospital last month for CHF exacerbation/atrial flutter with RVR. She presented to the ER today from the alf with complaints of chest pain for the last 5 days. Blood pressure has been uncontrolled. EKG in the emergency room shows atrial fibrillation with T wave abnormalities similar to previous admissions. Troponin series: 22-> 23. WEI performed 01/03/2025 prior to cardioversion showed LVEF 20%. I note her weight in the emergency room today was 188 pounds, last month was 165 pounds. She was given Lasix 20 mg IV x 1 in the emergency room as well as hydralazine and nitroglycerin paste. Her home medications include aspirin, statin, metoprolol 100 mg twice a day amiodarone 400 mg daily. Atrial fibrillation/flutter is well-controlled currently, intermittently AV pacing on twelve-lead EKG. She is a DO NOT RESUSCITATE status. Review of Systems 2 Const: Denies: fever(s), chills, change in weight, fatigue or diaphoresis Eyes: Denies: change in vision ENMT: Denies: epistaxis Card: Reports: chest pain and irregular heart rhythm; Denies: palpitations, edema, syncope, pre-syncope, dyspnea on exertion, orthopnea or leg pain with exertion Resp: Denies: dyspnea, productive cough or wheezing GI: Denies: nausea, vomiting, hematemesis, hematochezia or melena : Denies: hematuria Musc: Denies: extremity swelling Neuro: Reports: difficulty communicating thoughts (Aphasia due to previous stroke) Trung/Lymph: Denies: easy bruising or easy bleeding Medications/Allergies Home Medications ?Medication ?Instructions ?Recorded ?Confirmed ?Last Taken ?Type aspirin 81 mg tablet,delayed 81 mg PO DAILY@0800 #60 t abs 03/14/24 03/13/25 03/13/25 Rx release (Adult Low Dose Aspirin) pantoprazole 40 mg tablet,delayed 40 mg PO QAM 4 03/13/25 03/13/25 History release aluminum-mag hydroxide-simethicone 10 ml PO Q4H PRN In digestion 10/26/24 03/13/25 Unknown History 200 mg-200 mg-20 mg/5 mL oral susp docusate sodium 100 mg capsule 100 mg PO BID 10/26/24 03/13/25 03/13/25 History rivaroxaban 20 mg tablet (Xarelto) 20 mg PO DAILY 12/1903/13/25 03/13/25 History levothyroxine 112 mcg tablet 112 mcg PO DAILY #30 tabs 10/27/24 03/13/25 03/13/25 Rx ondansetron HCl 4 mg tablet 4 mg PO Q4H PRN Nausea And Vomiting 11/24/24 03/13/25 01/26/25 History acetaminophen 500 mg tablet 500 mg PO BID PRN Pain 04/1803/13/25 01/25/25 History bisacodyl 10 mg rectal suppository 10 mg NH DAILY PRN Constipation 12/28/24 03/13/25 Unknown History (Dulcolax (bisacodyl)) magnesium hydroxide 400 mg/5 mL 30 ml PO DAILY PRN Con stipation 12/28/24 03/13/25 Unknown History oral suspension (Milk of Magnesia) acetaminophen 325 mg tablet 650 mg PO Q4H PRN pain or fever 02/11/25 03/13/25 Unknown History amiodarone 400 mg tablet 400 mg PO DAILY 02/11/2503/13/25 History atorvastatin 80 mg tablet 80 mg PO BEDTIME 02/11/2503/12/25 History levetiracetam 750 mg tablet 750 mg PO Q12H 02/11/2503/13/25 History metoprolol tartrate 100 mg tablet 100 mg PO BID 03/13/25 03/13/25 History trazodone 50 mg tablet 25 mg PO BEDTIME 03/13/2503/12/25 History Allergies Allergy/AdvReac Type Severity Reaction Status Date / Time Penicillins Allergy Unknown Unknown Verified 02/14/25 12:16 tetanus and diphtheria Allergy Unknown Verified 02/14/25 12:16 toxoids morphine AdvReac Intermediate ADR-Confusi Verified 02/14/25 12:16 on penicillin G procaine AdvReac unknown Verified 02/14/25 12:16 PFSH Acute 2 PFSH: Medical History Paroxysmal A-fib CVA (cerebral vascular accident) UTI (urinary tract infection) Hypotension Aphasia Multiple falls Altered mental status Acute cystitis Hypersomnia TIA (transient ischemic attack) Recurrent UTI Medication noncompliance due to cognitive impairment Need for assistance with personal care Need for assistance due to reduced mobility Mild cognitive impairment with memory loss Oxygen dependent ANGIE (acute kidney injury) Hypertension Transient cerebral ischemia Chronic migraine without aura, intractable, with status migrainosus GERD (gastroesophageal reflux disease) 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) Dementia Obstructive sleep apnea Sleep apnea Type 2 diabetes mellitus Tachy-martin syndrome Non-insulin dependent diabetes mellitus -A1c (12/2019): 8.3 -Accucheks, ISS, hypoglycemia precautions -consistent carb diet as tolerated -takes metformin at home, can resume on d/c Drug-induced bradycardia Digoxin was discontinued along beta-alexandrea Atrial flutter Diastolic heart failure Generalized epilepsy CHF (congestive heart failure) Atrial fibrillation Severe obstructive sleep apnea Hypothyroidism Depressed Atrial dysrhythmia Diabetes 1.5, managed as type 2 Sleep apnea in adult Stroke due to embolism of left middle cerebral artery -prior hx of L MCA CVA in 05/2019; did not receive tPA -has been f/u with Dr. Randall -attributed to atrial fibrillation -on ASA, statin, AC with Eliquis -has residual cognitive impairment Seizure Heart failure Surgical History Status post cardiac pacemaker procedure No pertinent past surgical history Family History Sister Diabetes Father Heart disease Mother Heart disease Social History Smoking and tobacco/nicotine status: former use of tobacco/nicotine Quit status (tobacco/nicotine): has quit using Former quit date comment: 30 years ago after 1 pack/day for 10 years Alcohol intake: never Substance/Drug Use: never Additional social history: She wants DNR status as discussed today with patient and sister Brooke on 03/13/2025 Vitals/I&O/Wt Last Vital Signs Temp 98.8 F 03/13/25 12:41 Pulse 80 03/13/25 13:30 Resp 17 03/13/25 13:30 BP 162/118 03/13/25 13:30 Pulse Ox 98 03/13/25 13:30 Weight last 48 hrs Weight 188 lb Physical Exam 2 Const: COMMON NORMALS: no acute distress and patient oriented x3 Chest: COMMONS NORMALS: normal inspection of the chest and normal palpation of entire chest wall CHEST: Yes Symmetrical chest wall rise Resp: COMMON NORMALS: normal respiratory effort, No retractions and No use of accessory muscles EFFORT & INSPECTION: Yes symmetric chest movement A USCULTATION: crackles (bases) Laterality: bilateral and posterior Cardio: COMMON NORMALS: regular rate, S1 normal heart sound present, S2 normal heart sound present, No gallops present (Cardio), No clicks present (Cardio), No murmurs present (Cardio) and No rub (Cardio) RATE: regular rate RHYTHM: a bnormal rhythm irregularly irregular HEART SOUNDS: S1 normal heart sound present and S2 normal heart sound present PERIPHERAL PULSES: radial pulses present, posterior tibial pulses present and dorsalis pedis present Neuro: COMMON NORMALS: patient oriented x3 and moves all extremities Psych: COMMON NORMALS: mental status grossly normal and cooperative Data 03/13/25 12:54 03/13/25 12:54 A&P Assessment and plan (1) Paroxysmal A-fib: (2) Heart failure: Plan She appears volume overloaded, recommend IV diuresis. No significant elevation in troponin with flat trend so far. I suspect the chest pain is due to volume overload and elevated blood pressure. She had significant LV dysfunction in the setting of atrial fibrillation in December. Will recheck echocardiogram for updated LVEF. She has not had a coronary angiogram in the past that I am aware of. Continue to trend troponin and EKG. She appears to have good ventricular rate control. Continue aspirin, atorvastatin, metoprolol, amiodarone, Xarelto. PDMP PDMP Reviewed: Not Reviewed Coding Level of Care Code Acute Code for Chg Fwd Diagnoses Paroxysmal A-fib I48.0 Acute on chronic systolic heart failure I50.23 Heart failure chronicity: acute on chronic Heart failure type: systolic
[2025-03-13] MEDS: LORazepam 2 mg/mL INJ 1 mL 0.5 MG IVP (16:20)
[2025-03-13] MEDS: FUROsemide 10 mg/mL SDV 2mL 20 MG IVP (16:21)
--- NOTE | 2025-03-13 16:59 | USCV_ITS ---
Gianluca Goode Age: 79 Gender: F : 1945 Exam Date: 03/13/2025 19:58 Ordering Phys: Lucie Hudson Technologist: CARLY [place] [facility] [place]: sysolic chf, elevated trop, hx CVAs, residual LEFT hemiparesis, pacemaker, hx Atrial fibrillation BP: 174 / 113 HR: 79 Rhythm: Sinus Technical Quality: Adequate MEASUREMENTS (Male / Female) Normal Values 2D ECHO LV Diastolic Diameter PLAX 4.6 cm 4.2 - 5.9 / 3.9 - 5.3 cm IVS Diastolic Thickness 1.8 cm 0.6 - 1.0 / 0.6 - 0.9 cm IVS Systolic Thickness 2.1 cm LVPW Diastolic Thickness 1.6 cm 0.6 - 1.0 / 0.6 - 0.9 cm LVPW Systolic Thickness 2.2 cm LVOT Diameter 1.9 cm LV Ejection Fraction 2D Teich 43.3 % LV Ejection Fraction MOD 4C 28.9 % LV Ejection Fraction MOD 2C 49.2 % LV Ejection Fraction 2C AL 47.3 % LA Diameter 5.5 cm LA Sys Volume AL 84.8 cm cubed LA Sys Volume Index AL 42.2 cm cubed/m squared Aorta at Sinotubular Diameter 3.0 cm IVC Diameter 1.3 cm M-MODE LA Ao Ratio MM 1.7 AV Cusp Separation MM 1.8 cm DOPPLER AV Peak Velocity 108.0 cm/s LVOT Peak Velocity 64.0 cm/s AV Area Cont Eq vti 1.7 cm squared AV Area Cont Eq pk 1.7 cm squared MV Peak Velocity 121.0 cm/s MV Area PHT 4.1 cm squared Mitral E to A Ratio 211.5 TV Peak Velocity 263.0 cm/s TR Peak Velocity 299.0 cm/s TR Peak Gradient 35.8 mmHg TV Peak E Velocity 45.0 cm/s PV Peak Velocity 80.0 cm/s FINDINGS Left Ventricle Moderately increased left ventricular cavity size. Severely decreased left ventricular systolic function. Left ventricular ejection fraction is estimated at 35 %. Grade IV/IV diastolic dysfunction (irreversible restrictive filling pattern), severely elevated filling pressures. Global left ventricular hypokinesis. Right Ventricle Normal right ventricular size. Catheter/pacemaker wire visualized in the right ventricle. Thickening of paccemaker wire possible connective tissue cannot rule out vegetation clinical corelation advised if indicated. Right Atrium Catheter/pacemaker wire in the right atrial cavity. Left Atrium Moderately increased left atrial size. Mitral Valve Mildly thickened mitral valve. No mitral valve stenosis. Mild mitral valve regurgitation. Aortic Valve Mild aortic valve calcification. No aortic valve stenosis. Mild aortic valve regurgitation. Tricuspid Valve No tricuspid valve stenosis. Mild tricuspid valve regurgitation. Pulmonic Valve Mild pulmonary valve regurgitation. Pericardium Normal pericardium without effusion. Aorta Normal ascending aorta dimension. IVC The inferior vena cava appears normal. CONCLUSIONS Moderately increased left ventricular cavity size. Severely decreased left ventricular systolic function. Left ventricular ejection fraction is estimated at 35 %. Grade IV/IV diastolic dysfunction (irreversible restrictive filling pattern), severely elevated filling pressures. Global left ventricular hypokinesis. Normal right ventricular size. Catheter/pacemaker wire visualized in the right ventricle. Thickening of paccemaker wire possible connective tissue cannot rule out vegetation clinical corelation advised if indicated. Catheter/pacemaker wire in the right atrial cavity. Mild aortic valve calcification. No aortic valve stenosis. Mild aortic valve regurgitation. Mildly thickened mitral valve. No mitral valve stenosis. Mild mitral valve regurgitation. No tricuspid valve stenosis. Mild tricuspid valve regurgitation. Normal right ventricular size. Catheter/pacemaker wire visualized in the right ventricle. Thickening of paccemaker wire possible connective tissue cannot rule out vegetation clinical corelation advised if indicated. There is no pericardial effusion. Right atrial pressure is around 5 mm of mercury. Oanh Caballero MD (Electronically Signed) Final Date: 13 Mar 2025 21:58 S
[2025-03-13] MEDS: metoprolol tartrate 50 mg Tablet 100 MG PO (17:14)
[2025-03-13] MEDS: docusate sodium 100 mg Capsule PO (17:14)
--- NOTE | 2025-03-13 21:33 | ECG_ITS ---
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 Measurements Intervals [place] Rate: 87 P: 0 [place]: 0 QRS: 19 QRSD: 101 T: -89 QT: 411 QTc: 495 Interpretive Statements ATRIAL FIBRILLATION SEPTAL MYOCARDIAL INFARCTION , PROBABLY OLD [40+ ms Q WAVE IN V1/V2] ST DEVIATION AND MODERATE T-WAVE ABNORMALITY, CONSIDER LATERAL ISCHEMIA [-0.1+ mV T-WAVE IN I/aVL/V5/V6] ST DEVIATION AND MODERATE T-WAVE ABNORMALITY, CONSIDER INFERIOR ISCHEMIA [-0.1+ mV T-WAVE IN II/aVF] Compared to ECG 03/13/2025 15:43:17 No significant changes Electronically Signed On 03-16-2025 16:36:34 CDT by Micah Coleman M.D. [id number]
[2025-03-13] MEDS: atorvastatin 40 mg Tablet 80 MG PO (21:38)
[2025-03-13] MEDS: trazodone 50 mg Tablet 25 MG PO (21:39)
[2025-03-13] MEDS: acetaminophen 325 mg Tablet 650 MG PO (21:40)
[2025-03-13] MEDS: levETIRAcetam 500 mg Tablet 750 MG PO (21:41)
[2025-03-13] MEDS: FUROsemide 10 mg/mL SDV 4mL 40 MG IVP (21:42)
[2025-03-13 23:54] LABS: Troponin 5 6HR 25.45 ng/L (0-10)
[2025-03-14] VITALS (7 sets, daily range): BP systolic 111–138; BP diastolic 59–88; PULSE 62–79; RESP 12–17; TEMP 36.4–36.9; O2SAT 96–98
[2025-03-14 00:03] LABS: Troponin 5 6HR Delta 3.45 ng/L (0-12)
[2025-03-14 04:32] LABS: Anion Gap 9.6 (5-19); Blood Urea Nitrogen 20 mg/dL (8-23); Calcium 9.4 mg/dL (8.5-10.5); Carbon Dioxide 33 mmol/L (22-29); Chloride 105 mmol/L (98-107); Creatinine Clr Calc Pharmacy 56.5257; Glucose 131 mg/dL (65-115); Magnesium 1.8 mg/dL (1.7-2.3); Osmolality Calculated 302 mOsm/kg (285-295); Potassium 3.6 mmol/L (3.5-5.1); Sodium 144 mmol/L (136-145)
[2025-03-14] MEDS: pantoprazole DR 40 mg Tablet PO (05:48)
--- NOTE | 2025-03-14 07:42 | P.PN_ITS ---
Subjective 2 Subjective: 79-year-old white female diuresed overmonster flores weight down 2.3 kg states she has not had any chest pain today. She has some right neck discomfort that she is not sure about. She states her abdominal pain is also better. Patient states that yesterday she did have chest discomfort but none now. She reports that she is uncertain whether she wants medical management or to pursue a stent she says she is not completely opposed to having an angiogram but is not fully understanding. She was admitted in December 2024 with acute on chronic congestive heart failure and also has atrial fibrillation for which rapid ventricular response would cause diastolic dysfunction as well. 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 Vitals/I&O/Wt Last Vital Signs Temp 98.0 F 03/14/25 07:23 Pulse 71 03/14/25 07:23 Resp 16 03/14/25 07:23 BP 117/76 03/14/25 07:23 Pulse Ox 96 03/14/25 07:23 O2 Del Method Nasal Cannula 03/14/25 07:23 03/13/25 03/14/25 03/14/25 22:59 06:59 14:59 Intake Total 240 / 240 100 / 340 Balance 240 / 240 100 / 340 Weight last 48 hrs Weight 83.189 kg Weight 85.502 kg Weight 85.275 kg Physical Exam 2 Narrative: General Well-developed well-nourished overweight female in no acute cardiopulmonary distress CV irregular rhythm rate is controlled Lungs some crackles heard in the left lung robles Neck no bruits Abdomen positive bowel sounds soft Calves no edema no asymmetry Data 03/13/25 12:54 03/14/25 03:48 A&P Assessment and plan (1) Chest pain due to myocardial ischemia: Patient is treated with aspirin, continuation of her apixaban and Atorvastatin. She is on high-dose metoprolol 100 mg p.o. twice a day. At given 10 mg IVP here as well as hydralazine 10 mg IVP for blood pressure [id number]. She is also on Nitropaste continue diuresis and blood pressure control. Pt declined SCA and PCI. troponin reached only 25.5 Patient has had a severely low EF at 35% yesterday with additionally grade 4 diastolic dysfunction. Patient has strong family history of multiple members with heart disease in their 50s and a known mesenteric artery stenosis and coronary calcification. (2) Paroxysmal A-fib: Continue apixaban and amiodarone 400 mg daily. Chest x-ray shows cardiomegaly. Will give 20 mg IV furosemide. Continue with rate control and diuresis and anticoagulation (3) Aphasia as late effect of stroke: Communication is difficult and in part through with the patient's sister. We discussed CODE STATUS. Patient was initially uncertain but then decided on DO NOT RESUSCITATE status. 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 She is nontender to exam. She does not have diarrhea or constipation but reported normal bowel movements on admission yesterday PDMP PDMP Reviewed: Not Reviewed Attestations 2 Medical Necessity Statement*: Patient will remain in the hospital for additional time for management of heart failure with diuretics rate control for A-fib and consideration for angiogram if patient will allow Coding Level of Care Code 55058 Diagnoses Chest pain due to myocardial ischemia I25.9 Paroxysmal A-fib I48.0 Aphasia as late effect of stroke I69.320 Generalized seizure disorder G40.309 Acute on chronic combined systolic (congestive) and diastolic (congestive) heart failure I50.43 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
--- NOTE | 2025-03-14 07:48 | ECG_ITS ---
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 Measurements Intervals [place] Rate: 83 P: 0 TN: 0 QRS: -9 QRSD: 101 T: 218 QT: 421 QTc: 497 Interpretive Statements ATRIAL FIBRILLATION with demand V paced rhythm VOLTAGE CRITERIA FOR LVH [MEETS CRITERIA IN ONE OF: R(aVL), S(V1), R(V5), R(V5/V6)+S(V1)] POSSIBLE SEPTAL MYOCARDIAL INFARCTION , PROBABLY OLD [30 ms Q WAVE IN V1/V2] ST DEVIATION AND MODERATE T-WAVE ABNORMALITY, CONSIDER ANTEROLATERAL ISCHEMIA [-0.1+ mV T-WAVE IN V3-V6] ST DEVIATION AND MODERATE T-WAVE ABNORMALITY, CONSIDER INFERIOR ISCHEMIA [-0.1+ mV T-WAVE IN II/aVF] Compared to ECG 03/13/2025 21:16:20 Left ventricular hypertrophy now present. Myocardial infarct finding still present .T-wave abnormality still present Possible ischemia still present Electronically Signed On 03-16-2025 16:36:22 CDT by Micah Coleman M.D. [email or web address]
[2025-03-14 08:31] LABS: Troponin T (5th) Once 25 ng/L (0-10)
[2025-03-14] MEDS: docusate sodium 100 mg Capsule PO ×2 (08:37→17:41)
[2025-03-14] MEDS: levETIRAcetam 500 mg Tablet 750 MG PO ×2 (08:37→20:58)
[2025-03-14] MEDS: levothyroxine 112 mcg Tablet PO (08:37)
[2025-03-14] MEDS: magnesium oxide 400 mg tablet PO ×2 (08:37→17:41)
[2025-03-14] MEDS: rivaroxaban 10 mg Tablet 20 MG PO (08:37)
[2025-03-14] MEDS: metoprolol tartrate 50 mg Tablet 100 MG PO ×2 (08:37→17:41)
[2025-03-14] MEDS: potassium chloride ER 20 mEq Tablet 40 MEQ PO (08:37)
[2025-03-14] MEDS: aspirin 81 mg EC Tablet PO (08:37)
[2025-03-14] MEDS: sacubitril/valsartan 24-26 mg Tablet 1 EACH PO ×2 (08:37→17:41)
[2025-03-14] MEDS: amiodarone 200 mg Tablet 400 MG PO (08:37)
--- NOTE | 2025-03-14 09:51 | P.PN_ITS ---
<Statement entered by Oanh Caballero MD - 03/15/25 21:15> Patient was evaluated and cared for in conjunction with an advanced practice practitioner. I personally examined the patient and reviewed the chart and all pertinent data including imaging, telemetry, and laboratory results. I discussed the patient in detail with the advanced practice practitioner. Please see their note for complete H&P testing result and agreed upon plan of care for the patient. Subjective 2 Subjective: Chest pain is resolved overnight, shortness of breath improved. LVEF 35% by limited echo. Blood pressure and heart rates are stable, renal function is normal. Started on Entresto this morning. Her weight is down 5 pounds from yesterday. Vitals/I&O/Wt Last Vital Signs Temp 98.0 F 03/14/25 07:23 Pulse 71 03/14/25 07:23 Resp 16 03/14/25 07:23 BP 117/76 03/14/25 07:23 Pulse Ox 96 03/14/25 07:23 O2 Del Method Nasal Cannula 03/14/25 07:23 03/13/25 03/14/25 03/14/25 22:59 06:59 14:59 Intake Total 240 / 340 100 / 340 Balance 240 / 340 100 / 340 Weight last 48 hrs Weight 183 lb 6.4 oz Weight 188 lb 8 oz Weight 188 lb Physical Exam 2 Const: COMMON NORMALS: no acute distress and patient oriented x3 GENERAL APPEARANCE: cooperative and comfortable ORIENTATION/CONSCIOUSNESS: Yes awake, Yes oriented to person, Yes oriented to place and Yes oriented to time Chest: COMMONS NORMALS: normal inspection of the chest and normal palpation of entire chest wall CHEST: Yes Symmetrical chest wall rise Resp: COMMON NORMALS: normal respiratory effort, No retractions, No use of accessory muscles and clear to auscultation bilaterally EFFORT & INSPECTION: Yes symmetric chest movement AUSCULTATION: clear to auscultation bilaterally Cardio: COMMON NORMALS: regular rate, S1 normal heart sound present, S2 normal heart sound present, No gallops present (Cardio), No clicks present (Cardio), No murmurs present (Cardio) and No rub (Cardio) RATE: regular rate RHYTHM: a bnormal rhythm irregularly irregular HEART SOUNDS: S1 normal heart sound present and S2 normal heart sound present PERIPHERAL PULSES: radial pulses present Extremity: COMMON NORMALS: no pedal edema Neuro: COMMON NORMALS: patient oriented x3 and moves all extremities S ENSORIUM/ORIENTATION: Yes oriented to person, Yes oriented to place and Yes oriented to time Data 03/13/25 12:54 03/14/25 03:48 A&P Assessment and plan (1) Paroxysmal A-fib: (2) Acute on chronic combined systolic (congestive) and diastolic (congestive) heart failure: Plan Good ventricular rate control with amiodarone, metoprolol 100 mg twice a day. Continue diuresis with Lasix 40 mg daily. We discussed ischemic workup with her this morning, she prefers medical management but would be agreeable to a stress test if needed. Will discuss with patient and her sister again once she is euvolemic. PDMP PDMP Reviewed: Not Reviewed Attestations 2 Medical Necessity Statement*: IV diuresis, treatment for heart failure Coding Level of Care Code Acute Code for Chg Fwd Diagnoses Paroxysmal A-fib I48.0 Acute on chronic combined systolic (congestive) and diastolic (congestive) heart failure I50.43
[2025-03-14] MEDS: atorvastatin 40 mg Tablet 80 MG PO (20:58)
[2025-03-14] MEDS: trazodone 50 mg Tablet 25 MG PO (20:58)
[2025-03-15] VITALS (7 sets, daily range): BP systolic 106–141; BP diastolic 66–94; PULSE 73–91; RESP 16–26; TEMP 36.1–37.1; O2SAT 93–97
--- NOTE | 2025-03-15 02:11 | PC.NURSE ---
Patient did not want to take 40mg furosemide at 2100 due to having to be up and down all night to [facility]. Dr Hay was notified and new orders placed for furosemide to be given 0900 Q24Hr instead of 2100.
[2025-03-15 04:41] LABS: Anion Gap 8.1 (5-19); Blood Urea Nitrogen 19 mg/dL (8-23); Calcium 9.2 mg/dL (8.5-10.5); Carbon Dioxide 33 mmol/L (22-29); Chloride 108 mmol/L (98-107); Creatinine Clr Calc Pharmacy 61.7528; Glucose 143 mg/dL (65-115); Osmolality Calculated 305 mOsm/kg (285-295); Potassium 4.1 mmol/L (3.5-5.1); Sodium 145 mmol/L (136-145)
[2025-03-15] MEDS: pantoprazole DR 40 mg Tablet PO (06:42)
[2025-03-15] MEDS: docusate sodium 100 mg Capsule PO ×2 (08:26→17:29)
[2025-03-15] MEDS: amiodarone 200 mg Tablet 400 MG PO (08:26)
[2025-03-15] MEDS: levothyroxine 112 mcg Tablet PO (08:26)
[2025-03-15] MEDS: sacubitril/valsartan 24-26 mg Tablet 1 EACH PO ×2 (08:26→17:29)
[2025-03-15] MEDS: aspirin 81 mg EC Tablet PO (08:26)
[2025-03-15] MEDS: rivaroxaban 10 mg Tablet 20 MG PO (08:26)
[2025-03-15] MEDS: metoprolol tartrate 50 mg Tablet 100 MG PO ×2 (08:26→17:29)
[2025-03-15] MEDS: potassium chloride ER 20 mEq Tablet 40 MEQ PO (08:26)
[2025-03-15] MEDS: FUROsemide 10 mg/mL SDV 4mL 40 MG IVP (08:27)
[2025-03-15] MEDS: levETIRAcetam 500 mg Tablet 750 MG PO ×2 (08:27→21:36)
--- NOTE | 2025-03-15 08:38 | ECG_ITS ---
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
--- NOTE | 2025-03-15 08:40 | P.PN_ITS ---
<Statement entered by Oanh Caballero MD - 03/15/25 21:11> Patient was evaluated and cared for in conjunction with an advanced practice practitioner. I personally examined the patient and reviewed the chart and all pertinent data including imaging, telemetry, and laboratory results. I discussed the patient in detail with the advanced practice practitioner. Please see their note for complete H&P testing result and agreed upon plan of care for the patient. Patient denies complaint feeling better GENERAL: Patient is alert, awake and oriented x3. HEART: Regular S1 and S2. No murmur, rub or gallop. LUNGS: Clear to auscultate bilaterally. CENTRAL NERVOUS SYSTEM: Grossly nonfocal. EXTREMITIES: Lower extremities with out edema bilaterally. Chest pain Atrial fibrillation Shortness of breath Decompensated systolic heart failure acute on chronic History of CVA with aphasia Patient feeling better already Continue current management including IV Lasix Lexiscan MIBI stress test in the morning Subjective 2 Subjective: She has been well overnight, appears euvolemic today. Will plan for Lexiscan stress test tomorrow. No chest pain or shortness of breath last night or today. Vitals/I&O/Wt Last Vital Signs Temp 97.9 F 03/15/25 08:00 Pulse 76 03/15/25 08:00 Resp 16 03/15/25 08:00 BP 141/94 03/15/25 08:00 Pulse Ox 96 03/15/25 08:00 O2 Del Method Nasal Cannula 03/15/25 08:00 O2 Flow Rate 3 03/15/25 08:00 03/14/25 03/15/25 03/15/25 22:59 06:59 14:59 Intake Total 600 / 1280 200 / 1280 Output Total 350 / 1000 Balance 250 / 280 200 / 280 Weight last 48 hrs Weight 177 lb 9.6 oz Weight 183 lb 6.4 oz Weight 188 lb 8 oz Weight 188 lb Physical Exam 2 Const: COMMON NORMALS: no acute distress and patient oriented x3 GENERAL APPEARANCE: cooperative and comfortable ORIENTATION/CONSCIOUSNESS: Yes awake, Yes oriented to person, Yes oriented to place and Yes oriented to time Chest: COMMONS NORMALS: normal inspection of the chest and normal palpation of entire chest wall CHEST: Yes Symmetrical chest wall rise Resp: COMMON NORMALS: normal respiratory effort, No retractions, No use of accessory muscles and clear to auscultation bilaterally EFFORT & INSPECTION: Yes symmetric chest movement AUSCULTATION: clear to auscultation bilaterally Cardio: COMMON NORMALS: regular rate, regular rhythm, S1 normal heart sound present, S2 normal heart sound present, No gallops present (Cardio), No clicks present (Cardio), No murmurs present (Cardio) and No rub (Cardio) RATE: r egular rate RHYTHM: regular rhythm HEART SOUNDS: S1 normal heart sound present and S2 normal heart sound present PERIPHERAL PULSES: radial pulses present Extremity: COMMON NORMALS: no pedal edema Neuro: COMMON NORMALS: patient oriented x3 and moves all extremities S ENSORIUM/ORIENTATION: Yes oriented to person, Yes oriented to place and Yes oriented to time Data 03/13/25 12:54 03/15/25 03:45 A&P Assessment and plan (1) Paroxysmal A-fib: (2) Acute on chronic combined systolic (congestive) and diastolic (congestive) heart failure: Plan Continue Lasix 40 mg daily for diuresis, Entresto, aspirin, Xarelto, amiodarone, metoprolol. Renal function is normal. Plan for Lexiscan stress test tomorrow to assess for myocardial ischemia. If stress test is normal possible discharge tomorrow. PDMP PDMP Reviewed: Not Reviewed Attestations 2 Medical Necessity Statement*: per hospitalist Coding Level of Care Code Acute Code for Chg Fwd Diagnoses Paroxysmal A-fib I48.0 Acute on chronic combined systolic (congestive) and diastolic (congestive) heart failure I50.43
[2025-03-15] MEDS: magnesium oxide 400 mg tablet PO ×2 (09:26→17:29)
--- NOTE | 2025-03-15 12:05 | P.PN_ITS ---
Subjective 2 Subjective: Plan is for Lexiscan stress test tomorrow. No chest pain or shortness of breath last night or today. The patient and family were reluctant to proceed to angiogram so we will evaluate for ischemia with above test when nuclear medicine tracer is available Vitals/I&O/Wt Last Vital Signs Temp 97.9 F 03/15/25 08:00 Pulse 76 03/15/25 08:00 Resp 16 03/15/25 08:00 BP 141/94 03/15/25 08:00 Pulse Ox 96 03/15/25 08:00 O2 Del Method Nasal Cannula 03/15/25 08:00 O2 Flow Rate 3 03/15/25 08:00 03/14/25 03/15/25 03/15/25 22:59 06:59 14:59 Intake Total 600 / 1080 200 / 1280 336 / 336 Output Total 350 / 1000 300 / 300 Balance 250 / 80 200 / 280 36 / 36 Weight last 48 hrs Weight 80.558 kg Weight 83.189 kg Weight 85.502 kg Weight 85.275 kg Physical Exam 2 Narrative: General Well-developed well-nourished overweight female in no acute cardiopulmonary distress. She is cooperative mildly anxious and has expressive aphasia CV irregular rhythm rate is controlled Lungs clear to auscultation bilaterally Calves no edema no asymmetry Data 03/13/25 12:54 03/15/25 03:45 A&P Assessment and plan (1) Chest pain due to myocardial ischemia: Patient is treated with aspirin, continuation of her apixaban and Atorvastatin. She is on high-dose metoprolol 100 mg p.o. twice a day and has been on diuresis with IV furosemide. continue diuresis and blood pressure control. Pt declined SCA and PCI. troponin reached only 25.5 Patient has had a severely low EF at 35% yesterday with additionally grade 4 diastolic dysfunction. Patient has strong family history of multiple members with heart disease in their 50s and a known mesenteric artery stenosis and coronary calcification. Lexiscan nuclear planned in the morning (2) Paroxysmal A-fib: Continue apixaban and amiodarone 400 mg daily. Chest x-ray shows cardiomegaly. Continue 40 mg IV furosemide daily. Continue with rate control and diuresis and anticoagulation (3) Aphasia as late effect of stroke: Communication is difficult and in part through with the patient's sister. We discussed CODE STATUS. Patient was initially uncertain but then decided on DO NOT RESUSCITATE status. 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 She is nontender to exam. She does not have diarrhea or constipation but reported normal bowel movements on admission. 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
[2025-03-15] MEDS: acetaminophen 325 mg Tablet 650 MG PO (18:04)
--- NOTE | 2025-03-15 18:06 | PC.NURSE ---
Notified hospitalist Pt complaining that her right side of her mouth and jaw radiating to right ear is tender and sore. Checked mouth area, noticed black decayed tooth on right lower side area. Pt pain level is around 6 and she said it gets worse when she move her face or neck. notified . tylenol prn given for pain.
[2025-03-15] MEDS: trazodone 50 mg Tablet 25 MG PO (21:36)
[2025-03-15] MEDS: atorvastatin 40 mg Tablet 80 MG PO (21:36)
[2025-03-16 04:00] VITALS: BP 111/61; PULSE 67; RESP 14; TEMP 36.7; O2SAT 95
[2025-03-16 05:22] LABS: Anion Gap 10.2 (5-19); Blood Urea Nitrogen 22 mg/dL (8-23); Calcium 9.6 mg/dL (8.5-10.5); Carbon Dioxide 32 mmol/L (22-29); Chloride 103 mmol/L (98-107); Creatinine Clr Calc Pharmacy 54.7413; Glucose 130 mg/dL (65-115); Osmolality Calculated 297 mOsm/kg (285-295); Potassium 4.2 mmol/L (3.5-5.1); Sodium 141 mmol/L (136-145)
[2025-03-16 05:41] VITALS: PULSE 66
[2025-03-16] MEDS: pantoprazole DR 40 mg Tablet PO (06:31)
[2025-03-16] MEDS: regadenoson 0.4 Mg/5 ml Syringe IVP (07:46)
[2025-03-16] MEDS: aminophylline 25 mg/mL SDV 20 mL IVP (07:55)
[2025-03-16 07:57] VITALS: BP 151/76; PULSE 74
[2025-03-16 08:00] VITALS: BP 143/89; PULSE 81; RESP 21; TEMP 36.3; O2SAT 96
--- NOTE | 2025-03-16 08:39 | NMCV_ITS ---
NM ari perf SPECT r/s* [id number] Gianluca Goode Age: 79 Gender: F : 1945 Exam Date: 03/16/2025 07:02 Ordering Phys: Lucie Hudson Technologist: JAMES Molina Exam Location: [facility] Indications: cp STRESS TEST Please see separate stress test report in [facility] for full findings IMAGE PROTOCOL Rest/Stress 1 Lexiscan Day Radiopharmaceutical Dose (mCi) Administration Site Administered by Rest: Tc-99m 11 IV JAMES Molina Sestamibi Stress:Tc-99m 32.9 IV JAMES Mcdaniel Sestamibi Rest: 16-Mar-2025 60 Discovery 630 Stress: 16-Mar-2025 30 Discovery 630 0.4mg Lexiscan. Images obtained in supine and prone position. SPECT RESULTS Technical Quality: Good Raw Data Analysis: Normal Image Corrections: No attenuation or motion correction applied Summed Stress Score: 2 Summed Rest Score: 0 Summed Difference Score: 2 PERFUSION FINDINGS There is a small sized, partially reversible perfusion defect seen in the inferior wall. This is consistent with small area of prior infarct with minimal luciano-infarct ischemia seen in the RCA territory. FUNCTIONAL RESULTS (calculated via Gated SPECT) Stress Image LV EF (%): 30 Stress EDV (mL):137 TID: 1.15 Stress ESV (mL):96 FUNCTIONAL FINDINGS: LV systolic function is severely reduced with EF of 30%. Severe global hypokinesis. IMPRESSIONS 1. Small sized area of prior infact with mininmal luciano-infarct ischemia seen in the RCA territory. 2. LV systolic function is severely reduced with EF of 30% Bo Drummond MD (Electronically Signed) Final Date: 16 Mar 2025 09:44 S
[2025-03-16] MEDS: potassium chloride ER 20 mEq Tablet 40 MEQ PO (09:02)
[2025-03-16] MEDS: sacubitril/valsartan 24-26 mg Tablet 1 EACH PO (09:02)
[2025-03-16] MEDS: levothyroxine 112 mcg Tablet PO (09:02)
[2025-03-16] MEDS: levETIRAcetam 500 mg Tablet 750 MG PO (09:02)
[2025-03-16] MEDS: magnesium oxide 400 mg tablet PO (09:02)
[2025-03-16] MEDS: aspirin 81 mg EC Tablet PO (09:02)
[2025-03-16] MEDS: rivaroxaban 10 mg Tablet 20 MG PO (09:02)
[2025-03-16] MEDS: docusate sodium 100 mg Capsule PO (09:02)
[2025-03-16] MEDS: FUROsemide 10 mg/mL SDV 4mL 40 MG IVP (09:03)
[2025-03-16] MEDS: metoprolol tartrate 50 mg Tablet 100 MG PO (09:03)
[2025-03-16] MEDS: amiodarone 200 mg Tablet 400 MG PO (09:04)
--- NOTE | 2025-03-16 09:46 | PC.SOCIAL ---
IMM Update pg 2 of IMM Updated and reviewed w/ patient. Copy provided and copy dated, initialed and placed in chart.
--- NOTE | 2025-03-16 10:04 | P.PN_ITS ---
<Statement entered by Oanh Caballero MD - 03/16/25 18:35> Patient was evaluated and cared for in conjunction with an advanced practice practitioner. I personally examined the patient and reviewed the chart and all pertinent data including imaging, telemetry, and laboratory results. I discussed the patient in detail with the advanced practice practitioner. Please see their note for complete H&P testing result and agreed upon plan of care for the patient. Patient denies any complaint No chest pain Stress test showed old myocardial infarction with minimal to mild luciano-infarct ischemia GENERAL: Patient is alert, awake and oriented x3. HEART: Regular S1 and S2. No murmur, rub or gallop. LUNGS: Clear to auscultate bilaterally. CENTRAL NERVOUS SYSTEM: Grossly nonfocal. EXTREMITIES: Lower extremities with out edema bilaterally. Assessment and plan Decompensated diastolic heart failure now well compensated Stress test showed minimal luciano-infarct ischemia Atrial fibrillation under control Uncontrolled hypertension Baseline aphasia History of CVA Detailed discussion with the patient again, stress test results shows minimal luciano-infarct ischemia which is not an indication for left heart cath in the absence of symptoms, her medication was optimized including beta-alexandrea isosorbide mononitrate, patient is also not interested in any invasive procedure, we agree with it. From a cardiovascular perspective patient can be discharged home. Diuretic has also been added along with Entresto. Follow-up with cardiology Subjective 2 Subjective: She has done well overnight, no chest pain or shortness of breath. Stress test this morning showed minimal luciano-infarct ischemia around a small fixed defect in the RCA territory. Medical management advised. Will start her on isosorbide mononitrate 30 mg daily. Continue metoprolol, atorvastatin, aspirin, Entresto, amiodarone, Xarelto. Since she is euvolemic, can start Lasix 20 mg daily tomorrow after her IV dose today. Vitals/I&O/Wt Last Vital Signs Temp 97.3 F L 03/16/25 08:00 Pulse 81 03/16/25 08:00 Resp 21 H 03/16/25 08:00 BP 143/89 03/16/25 08:00 Pulse Ox 96 03/16/25 08:00 O2 Del Method Nasal Cannula 03/16/25 08:00 O2 Flow Rate 3 03/15/25 08:00 03/15/25 03/16/25 03/16/25 22:59 06:59 14:59 Intake Total 660 / 1336 100 / 1336 Output Total 2000 / 2300 0 / 2300 200 / 200 Balance -1340 / -964 100 / -964 -200 / -200 Weight last 48 hrs Weight 176 lb 9.6 oz Weight 177 lb 9.6 oz Physical Exam 2 Const: COMMON NORMALS: no acute distress and patient oriented x3 GENERAL APPEARANCE: cooperative and comfortable ORIENTATION/CONSCIOUSNESS: Yes awake, Yes oriented to person, Yes oriented to place and Yes oriented to time Chest: COMMONS NORMALS: normal inspection of the chest and normal palpation of entire chest wall CHEST: Yes Symmetrical chest wall rise Resp: COMMON NORMALS: normal respiratory effort, No retractions, No use of accessory muscles and clear to auscultation bilaterally EFFORT & INSPECTION: Yes symmetric chest movement AUSCULTATION: clear to auscultation bilaterally Cardio: COMMON NORMALS: regular rate, regular rhythm, S1 normal heart sound present, S2 normal heart sound present, No gallops present (Cardio), No clicks present (Cardio), No murmurs present (Cardio) and No rub (Cardio) RATE: r egular rate RHYTHM: regular rhythm HEART SOUNDS: S1 normal heart sound present and S2 normal heart sound present PERIPHERAL PULSES: radial pulses present Extremity: COMMON NORMALS: no pedal edema Neuro: COMMON NORMALS: patient oriented x3 and moves all extremities S ENSORIUM/ORIENTATION: Yes oriented to person, Yes oriented to place and Yes oriented to time Data 03/13/25 12:54 03/16/25 04:10 A&P Assessment and plan (1) Paroxysmal A-fib: (2) Acute on chronic combined systolic (congestive) and diastolic (congestive) heart failure: (3) History of CVA in adulthood: Plan She is euvolemic. Will transition to Lasix 20 mg daily. LVEF 35% by echocardiogram, stress test today showed minimal luciano-infarct ischemia around a small fixed defect in the RCA. She did not desire any invasive intervention and the ischemic areas minimal will recommend medical management. She can start isosorbide mononitrate tomorrow and continue her home meds; aspirin, Xarelto, atorvastatin, amiodarone, metoprolol. We started her on Entresto with this admission, will uptitrate as an outpatient as able, blood pressure soft at times. She may discharge home, follow-up with the cardiology clinic in 7 to 10 days. PDMP PDMP Reviewed: Not Reviewed Attestations 2 Medical Necessity Statement*: plan DC home Coding Level of Care Code Acute Code for Chg Fwd Diagnoses Paroxysmal A-fib I48.0 Acute on chronic combined systolic (congestive) and diastolic (congestive) heart failure I50.43 History of CVA in adulthood Z86.73
[2025-03-16 11:45] VITALS: BP 128/81; PULSE 88; RESP 18; TEMP 36.6; O2SAT 91
[2025-03-16] MEDS: acetaminophen 325 mg Tablet 650 MG PO (12:27)
[2025-03-16 12:52] LABS: SARS Covid-2 Antigen Negative (Negative)
--- NOTE | 2025-03-16 13:13 | PM.DCS ---
Discharge Providers Date of Admission: 03/13/25 15:51 Date of Discharge: March 16, 2025 Attending Provider at Admission: Mark Qureshi MD Attending Provider at Discharge: Mark Qureshi MD Primary Care Provider: Home Philip DO Diagnoses at Discharge Discharge Diagnosis (1) Paroxysmal A-fib: Details from hospital stay: Stable with blood pressure 128/81 pulse 88 and irregular with respirations 18 O2 sat 91% on room air. Weight today 80.104 kg and that represents her dry weight. 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 12/27/24 IMPRESSION: 1. 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 2. 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 3. Marked gallbladder wall thickening with no gallstones identified. No intrahepatic or extrahepatic biliary ductal dilatation. Status: Acute Reason for Visit Reason for Visit: Chest Pain Brief History: Gianluca Goode is a 79 year old female with history of multiple strokes starting 10 years ago. She has had 3-4 strokes over the course that time with primary left sided hemiplegia. Patient has expressive aphasia and much of her history is given by her sister Brooke who is present at bedside. Brooke says that for the last 10 years patient has had seizures and has had 10-12 some of them being very severe. She Bronson thinks this has caused some brain dysfunction. Patient is not able to give a very detailed history but it was understood that she had chest pain at the nursing facility today so she was sent to the ER. Brooke states that she has had chest pain for about 5 days off and on and her blood pressure is high as high as 193/123 heart rate 88. Rhythm is A-fib with irregular rhythm controlled rate and an frequent PVCs some of the time bigeminy Patient and her sister Brooke told me that dad had heart disease in his 50s and 9 of his siblings also had heart disease at young age. His father was twice had 10 kids with his first and 9 kids with the second Hospital Course Hospital Course Patient diuresed quickly. Initial weight on admission 85.27 kg diuresed down to 80.10 kg. She is on furosemide 20 mg daily and potassium chloride 40 mill colons daily with potassium running stable. her chest pain went away with the diuresis. The patient and family were reluctant to undergo angiogram so there was a delay in getting nuclear tracer and she underwent nuclear study today which was negative for ischemia. Senior Telecommunications Technician has released her to discharge back to the nursing facility. I think that management of her fluid volume will be important to maintain chest pain free status. Physical Exam Narrative: General Well-developed well-nourished overweight female in no acute cardiopulmonary distress. She is cooperative mildly anxious and has expressive aphasia CV irregular rhythm rate is controlled Lungs clear to auscultation bilaterally Calves no edema no asymmetry Discharge Data Studies Completed and Pending Completed Studies During Hospitalization Category Date Time Status Cardiac Stress Test MIBI [Sestamibi Stress Test Request Exams 03/15/25 08:38 Draft ] Routine XR chest 1V portable [id number] Stat Exams 03/13/25 12:44 Completed NM ari perf SPECT r/s* [id number] Routine Nuc Med 03/16/25 08:39 Completed CV. echo complete* [id number] Urgent Ultrasound 03/13/25 16:59 Completed Radiology Impressions Chest X-Ray 03/13/25 12:44 IMPRESSION: 1. Heart is enlarged but stable when compared to the prior exam. 2. Trace bibasilar atelectasis or scar. Laboratory Results WBC 6.36 10^3/uL (3.29-11.43) 03/13/25 12:54 RBC 4.20 10^6/uL (3.85-5.65) 03/13/25 12:54 Hgb 12.50 g/dL (11.27-16.99) 03/13/25 12:54 Hct 41.6 % (36-47) 03/13/25 12:54 MCV 99.0 fl (85-98) H 03/13/25 12:54 MCH 29.8 pg (27-33) 03/13/25 12:54 MCHC 30.0 g/dL (30-55) 03/13/25 12:54 RDW 16.9 % (12.1-15.1) H 03/13/25 12:54 Plt Count 195 10^3/cmm (157-399) 03/13/25 12:54 MPV 11.6 fL (7.4-10.4) H 03/13/25 12:54 Neut % (Auto) 65.4 % 03/13/25 12:54 Lymph % (Auto) 21.9 % 03/13/25 12:54 [place] % (Auto) 10.4 % 03/13/25 12:54 Eos % (Auto) 1.4 % 03/13/25 12:54 Baso % (Auto) 0.6 % 03/13/25 12:54 Neut # (Auto) 4.16 10^3/uL (1.8-7.7) 03/13/25 12:54 Lymph # (Auto) 1.4 10^3/uL (0.8-4.8) 03/13/25 12:54 [place] # (Auto) 0.7 10^3/uL (0.2-0.9) 03/13/25 12:54 Eos # (Auto) 0.1 10^3/uL (0.0-0.8) 03/13/25 12:54 Baso # (Auto) 0.0 10^3/uL (0.0-0.1) 03/13/25 12:54 Nucleated RBC % (auto) 0 % 03/13/25 12:54 Nucleated RBCs # 0.0 /100WBC 03/13/25 12:54 Sodium 141 mmol/L (136-145) 03/16/25 04:10 Potassium 4.2 mmol/L (3.5-5.1) 03/16/25 04:10 Chloride 103 mmol/L (98-107) 03/16/25 04:10 Carbon Dioxide 32 mmol/L (22-29) H 03/16/25 04:10 Anion Gap 10.2 (5-19) 03/16/25 04:10 BUN 22 mg/dL (8-23) 03/16/25 04:10 Creatinine 0.9 mg/dL (0.5-0.9) 03/16/25 04:10 GFR Calculation Not Reportable 03/16/25 04:10 Glucose 130 mg/dL (65-115) H 03/16/25 04:10 Calculated Osmolality 297 mOsm/kg (285-295) H 03/16/25 04:10 Calcium 9.6 mg/dL (8.5-10.5) 03/16/25 04:10 Magnesium 1.8 mg/dL (1.7-2.3) 03/14/25 03:48 Total Bilirubin 0.3 mg/dL (0.15-1.2) 03/13/25 12:54 AST 45 U/L (0-32) H 03/13/25 12:54 ALT 59 U/L (0-33) H 03/13/25 12:54 Alkaline Phosphatase 149 U/L (35-105) H 03/13/25 12:54 Troponin T 5th Gen ng/L 25 ng/L (0-10) H 03/14/25 03:48 Troponin T Baseline 22 ng/L (0-10) H 03/13/25 12:54 Troponin T 120 Minute 23.52 ng/L (0-10) H 03/13/25 14:54 Delta Troponin T 1.52 ABS# (0-10) 03/13/25 14:54 Troponin T Hi Sens 6Hr 25.45 ng/L (0-10) H 03/13/25 23:00 Troponin T Hi Sens 6Hr Delta 3.45 ng/L (0-12) 03/13/25 23:00 Total Protein 6.0 g/dL (6.6-8.7) L 03/13/25 12:54 Albumin 3.7 g/dL (3.5-5.2) 03/13/25 12:54 Globulin 2.3 g/dL (1.3-4.6) 03/13/25 12:54 SARS-CoV-2 Ag (Rapid) Negative (Negative) 03/16/25 12:15 Vitals Last Vital Signs Temp 97.8 F 03/16/25 11:45 Pulse 88 03/16/25 11:45 Resp 18 03/16/25 11:45 BP 128/81 03/16/25 11:45 Pulse Ox 91 03/16/25 11:45 O2 Del Method Nasal Cannula 03/16/25 11:45 O2 Flow Rate 3 03/15/25 08:00 Discharge Plan Discharge Patient Disposition: Home Condition: Stable Prescriptions: New magnesium oxide 400 mg (241.3 mg magnesium) Tablet 400 mg PO DAILY Qty: 30 0RF nitroglycerin 0.4 mg Tablet, Sublingual 0.4 mg sublingual Q5M PRN (Reason: Chest Pain) Qty: 20 0RF Entresto 24-26 mg Tablet 1 tab PO BID Qty: 60 0RF isosorbide mononitrate 30 mg Tablet Extended Release 24 Hr 30 mg PO DAILY Qty: 30 0RF furosemide 20 mg Tablet 20 mg PO DAILY@0800 Qty: 30 0RF Continued ondansetron HCl 4 mg tablet 4 mg PO Q4H PRN (Reason: Nausea And Vomiting) pantoprazole 40 mg tablet,delayed release (DR/EC) 40 mg PO QAM aspirin [Adult Low Dose Aspirin] 81 mg tablet,delayed release (DR/EC) 81 mg PO DAILY@0800 Qty: 60 0RF docusate sodium 100 mg Capsule 100 mg PO BID alum-mag hydroxide-simeth 200-200-20 mg/5 mL Suspension 10 ml PO Q4H PRN (Reason: Indigestion) Rx Instructions: administer between meals and at bedtime Xarelto 20 mg tablet 20 mg PO DAILY levothyroxine 112 mcg Tablet 112 mcg PO DAILY Qty: 30 0RF magnesium hydroxide [Milk of Magnesia] 400 mg/5 mL Suspension 30 ml PO DAILY PRN (Reason: Constipation) bisacodyl [Dulcolax (bisacodyl)] 10 mg Suppository 10 mg MI DAILY PRN (Reason: Constipation) atorvastatin 80 mg tablet 80 mg PO BEDTIME acetaminophen 325 mg Tablet 650 mg PO Q4H PRN (Reason: pain or fever) metoprolol tartrate 100 mg tablet 100 mg PO BID amiodarone 400 mg Tablet 400 mg PO DAILY levetiracetam 750 mg tablet 750 mg PO Q12H trazodone 50 mg Tablet 25 mg PO BEDTIME Discontinued acetaminophen 500 mg Tablet 500 mg PO BID PRN (Reason: Pain) Discharge Orders: Discharge Order (Routine); Ordered 03/16/25 Ordered By: Mark Qureshi Referrals: [facility] [Outside] Aretha Davies FNP [Nurse Practitioner, Family Practice] Discharge Diet: Cardiac Discharge Activity: Increase activity as tolerated Patient Instructions: Opioid Safety Assessment: Follow-up your abdominal pain with the primary care regarding calcified mesenteric arteries and possible mesenteric ischemia weight daily and goal maintain current weight If gaining more than 3 pounds from today's weight need to adjust diuretics upward need to get mini panel next week and magnesium level Discharge Attestations Time Spent in Discharge Care*: greater than 30 min Status at Discharge: Cognitive status at discharge: cognitively intact, Behavioral status at discharge: cooperative, Quality Metrics Clinical Quality Measures [ No reported AMI, CVA or VTE this stay] Coding Level of Care Code 16227 Diagnoses Paroxysmal A-fib I48.0 Acute on chronic combined systolic (congestive) and diastolic (congestive) heart failure I50.43 History of CVA in adulthood Z86.73 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
--- NOTE | 2025-03-16 13:57 | PC.NURSE ---
report called to [facility] Report called to staff at [facility] about pt's discharge instructions and new meds. [facility] transportation will come and pick her up.
[2025-03-16 14:42] VITALS: BP 110/72; PULSE 80; O2SAT 94
--- NOTE | 2025-03-16 14:43 | PC.NURSE ---
[facility] here to pick her up discharge packet provided to pt.
== END 2025-03-16 14:44 | disposition skilled nursing facility (03) | DRG 291 ==
LOC: ER 13:14 → CSU 15:52
PROVIDERS: Admitting Provider Internal Medicine; Emergency Provider Family Medicine; PCP Internal Medicine; Visit Provider Internal Medicine
DX: I11.0 Hypertensive heart disease with heart failure (principal); I50.43 Acute on chronic combined systolic (congestive) and diastolic (congestive) heart failure; I69.354 Hemiplegia and hemiparesis following cerebral infarction affecting left non-dominant side; K55.1 Chronic vascular disorders of intestine; I48.0 Paroxysmal atrial fibrillation; I69.320 Aphasia following cerebral infarction; G40.909 Epilepsy, unspecified, not intractable, without status epilepticus; K21.9 Gastro-esophageal reflux disease without esophagitis; F03.90 Unspecified dementia, unspecified severity, without behavioral disturbance, psychotic disturbance, mood disturbance, and anxiety; G47.33 Obstructive sleep apnea (adult) (pediatric); E13.9 Other specified diabetes mellitus without complications; I25.9 Chronic ischemic heart disease, unspecified; G43.711 Chronic migraine without aura, intractable, with status migrainosus; I49.3 Ventricular premature depolarization; Z66 Do not resuscitate; F32.A Depression, unspecified; E03.9 Hypothyroidism, unspecified; Z79.01 Long term (current) use of anticoagulants; Z79.82 Long term (current) use of aspirin; Z79.891 Long term (current) use of opiate analgesic; Z99.81 Dependence on supplemental oxygen; Z87.440 Personal history of urinary (tract) infections; Z95.0 Presence of cardiac pacemaker; Z87.891 Personal history of nicotine dependence; Z82.49 Family history of ischemic heart disease and other diseases of the circulatory system
CPT/HCPCS: 36415; 71045; 78452; 80048; 80053; 83735; 84484; 85025; 87426; 93005; 93017; 93306; 96374; 96375; 96376; 99285; A9500; J0280; J0360; J1938; J2060; J2785; J3490; J9999

== ENCOUNTER → 2025-03-29 10:55 | Outpatient (BNVA) | payer MEDICARE, OTHER, SELFPAY | PROVIDERS: PCP Internal Medicine; Visit Provider Nurse Practitioner Family | DX: I48.0 Paroxysmal atrial fibrillation (principal); Z79.01 Long term (current) use of anticoagulants; Z79.82 Long term (current) use of aspirin; Z09 Encounter for follow-up examination after completed treatment for conditions other than malignant neoplasm; I50.43 Acute on chronic combined systolic (congestive) and diastolic (congestive) heart failure; I70.90 Unspecified atherosclerosis; Z95.0 Presence of cardiac pacemaker; Z86.73 Personal history of transient ischemic attack (TIA), and cerebral infarction without residual deficits; Z87.891 Personal history of nicotine dependence | CPT/HCPCS: 99214 ==

== ENCOUNTER → 2025-05-28 09:44 | Outpatient (BNVA) | payer MEDICARE, OTHER, SELFPAY | PROVIDERS: PCP Internal Medicine; Visit Provider Nurse Practitioner Family | DX: I11.0 Hypertensive heart disease with heart failure (principal); I50.23 Acute on chronic systolic (congestive) heart failure; I48.0 Paroxysmal atrial fibrillation; Z79.01 Long term (current) use of anticoagulants; E07.9 Disorder of thyroid, unspecified; F41.9 Anxiety disorder, unspecified; Z95.0 Presence of cardiac pacemaker; Z86.73 Personal history of transient ischemic attack (TIA), and cerebral infarction without residual deficits; Z87.891 Personal history of nicotine dependence | CPT/HCPCS: 36415; 83880; 84439; 84443; 85025; 99214 ==

== ENCOUNTER 2025-06-26 11:06 | Outpatient (CLI) | payer MEDICARE, OTHER, SELFPAY ==
--- NOTE | 2025-06-26 11:15 | USCV_ITS ---
Gianluca Goode Age: 79 Gender: F : 1945 Exam Date: 06/26/2025 11:24 Ordering Phys: Sienna Russell NP Technologist: Exam [place] [facility] [place]: ef chf BP: 190 / 100 HR: Rhythm: Sinus Technical Quality: Adequate MEASUREMENTS (Male / Female) Normal Values 2D ECHO LV Diastolic Diameter PLAX 4.8 cm 4.2 - 5.9 / 3.9 - 5.3 cm IVS Diastolic Thickness 1.6 cm 0.6 - 1.0 / 0.6 - 0.9 cm IVS Systolic Thickness 2.2 cm LVPW Diastolic Thickness 1.4 cm 0.6 - 1.0 / 0.6 - 0.9 cm LVPW Systolic Thickness 2.0 cm LV Ejection Fraction 2D Teich 68.4 % LV Ejection Fraction MOD 4C 72.7 % LV Ejection Fraction MOD 2C 56.5 % LV Ejection Fraction 2C AL 57.4 % RA Systolic Volume 4C AL 34.0 ml RA Systolic Volume 4C MOD 33.1 ml LA Sys Volume AL 72.1 cm cubed LA Sys Volume Index AL 38.7 cm cubed/m squared IVC Diameter 1.0 cm M-MODE LA Ao Ratio MM 1.1 AV Cusp Separation MM 1.9 cm FINDINGS Left Ventricle Normal left ventricular size and systolic function, EF 56%. Moderate left ventricular hypertrophy. No regional wall motion abnormalities. Right Ventricle Catheter/pacemaker wire in the right ventricular cavity. Normal right ventricular size and systolic function. Right Atrium Catheter/pacemaker wire in the right atrial cavity. Left Atrium Moderately increased left atrial volume 38.74 ml/m squared. Mitral Valve No gross abnormalities noted Aortic Valve No gross abnormalities noted Tricuspid Valve No gross abnormalities noted Pulmonic Valve Pulmonic valve not well visualized. Pericardium No pericardial effusion. Aorta Normal aortic annulus size. IVC Normal inferior vena cava. CONCLUSIONS Normal left ventricular size and systolic function, EF 56%. Moderate left ventricular hypertrophy. No regional wall motion abnormalities. Catheter/pacemaker wire in the right ventricular cavity. Normal right ventricular size and systolic function. Moderately increased left atrial volume 38.74 ml/m squared. Pacemaker wire in the right atrium/right ventricle There is no pericardial effusion. Compared to the study from 03/13/2025, there is significant improvement in the LV ejection fraction Dr Micah Coleman MD FAC (Electronically Signed) Final Date: 29 June 2025 17:23 S
== END 2025-06-26 11:07 | disposition home or self-care (01) ==
LOC: RAD 11:10
PROVIDERS: PCP Internal Medicine; Visit Provider Nurse Practitioner Family
DX: I50.23 Acute on chronic systolic (congestive) heart failure (principal); I51.7 Cardiomegaly; Z95.0 Presence of cardiac pacemaker; R93.1 Abnormal findings on diagnostic imaging of heart and coronary circulation
CPT/HCPCS: 93308

== ENCOUNTER 2025-07-04 20:47 | Inpatient (IN) | payer MEDICARE, OTHER, MEDICAID, SELFPAY ==
[2025-07-04 20:47] VITALS: BP 223/91; PULSE 68; RESP 16; TEMP 37.1; O2SAT 82; BMI 36.6
--- NOTE | 2025-07-04 20:50 | XRR_ITS ---
PROCEDURE INFORMATION: Exam: XR Chest Exam date and time: 07/04/2025 8:56 PM Age: 79 years old Clinical indication: Injury or trauma; Fall; Blunt trauma (contusions or hematomas) TECHNIQUE: Imaging protocol: Radiologic exam of the chest. Views: 1 view. COMPARISON: CR XR chest 1V portable [id number] 03/13/2025 12:54 PM FINDINGS: Tubes, catheters and devices: Left anterior chest wall pacer device with leads projecting over the right atrium and right ventricle. Lungs: Unremarkable. No consolidation. Pleural spaces: Unremarkable. No pleural effusion. No pneumothorax. Heart/Mediastinum: Mild cardiomegaly. Vasculature: Mild atherosclerotic calcification of the aortic arch. Bones/joints: Unremarkable. XR/XR chest 1V portable [id number] IMPRESSION: No acute finding.
--- NOTE | 2025-07-04 20:50 | XRR_ITS ---
PROCEDURE INFORMATION: Exam: XR Left Hip Exam date and time: 07/04/2025 8:57 PM Age: 79 years old Clinical indication: Injury or trauma; Fall; Blunt trauma (contusions or hematomas); Left; Hip TECHNIQUE: Imaging protocol: Radiologic exam of the left hip. Views: 2 or 3 views hip with pelvis when performed. COMPARISON: CT abdomen pelvis w con* [id number] 11/12/2021 7:18 PM FINDINGS: Bones/joints: Acute mildly displaced basicervical fracture of the left femoral neck. Soft tissues: Unremarkable. Intraperitoneal space: The remainder of the pelvis appears intact on single AP view. XR/XR hip LT 2-3V wo/w pel* [id number] IMPRESSION: Acute mildly displaced basicervical fracture of the left femoral neck.
--- OUTSIDE RECORDS SUMMARY | 2025-07-04 20:52 | XMS_ITS | Encounter Summary ---
Author Organization [facility] Address [address] [place] [address] Care Team Providers Care Manager File Name Role Phone Unavailable Primary Care Provider Unavailabl e Encounter Details Date Type Department Care Team (Latest Contact Info) Description 11/01/2000 Outpatient Historical [facility] Tejas Figueroa, Robert Alejandro MD [address] [place] [phone] Unspecified follow-up examination (Primary Dx) Social History Tobacco Use Types Packs/Day Years Used Date Smoking Tobacco: Never Assessed Comments Unknown Sex and Gender Information Value Date Recorded Sex Assigned at Not on file Legal Sex 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
--- OUTSIDE RECORDS SUMMARY | 2025-07-04 20:52 | XMS_ITS | Clinical Summary ---
Author Organization [facility] Address [address] [facility] Attn: Epic Prelude ADT IVELISSE PIERRE [id number] Care Team Providers Care Silk Screen Cutter Name Role Phone Unavailable Primary Care Provider Unavailabl e Allergies Active Allergy Reactions Criticality Noted Date Comments Tetanus Toxoid Swelling Low 01/22/2014 Medications metFORMIN (GLUCOPHAGE) 1,000 mg tablet Take 1,000 mg by mouth 2 times daily with meals. 9 Active glyBURIDE (DIABETA) 2.5 mg tablet Take 4 mg by mouth daily with breakfast. 9 Active diltiaZEM (CARDIZEM SR) 120 mg Extended Release 12 hour capsule Take 1 Capsule (120 mg) by mouth every 12 hours. 60 Capsule 1 0 Active metoprolol tartrate (LOPRESSOR) 100 mg tablet Take 1 Tablet (100 mg) by mouth 2 times daily. 60 Tablet 1 0 Active apixaban (ELIQUIS) 5 mg tablet Take 1 Tablet (5 mg) by mouth 2 times daily. 60 Tablet 11 0 Active digoxin (LANOXIN) 125 mcg (0.125 mg) tablet Take 1 Tablet (125 mcg) by mouth daily. 30 Tablet 1 0 Active albuterol HFA 90 mcg inhaler Take 2 Puffs by inhalation every 4 hours as needed for Shortness of Breath. 8.5 Gram 1 0 Active predniSONE 10 mg Tablets, Dose Pack Take 1 Tablet (10 mg) by mouth see administration instructions. 20 m daily for 2uyul19 mg daily for 3days 10 Tablet 0 0 Active atorvastatin (LIPITOR) 20 mg tablet Take 1 Tablet (20 mg) by mouth daily with supper. 30 Tablet 1 0 Active Active Problems Problem Noted Date Diagnosed Date Acute metabolic encephalopathy 12/08/2019 Aspiration pneumonia 12/08/2019 Acute respiratory failure with hypoxia 0 COPD with exacerbation 12/08/2019 Acute exacerbation of chronic obstructive pulmon tracy disease 10/06/2019 Pulmonary edema, acute 10/05/2019 Chronic a-fib 10/04/2019 RSV infection 10/04/2019 Type 2 diabetes mellitus, wi thout long-term current use of insulin 10/04/2019 Acute on chronic respiratory failure with hypoxia and hypercapnia 10/03/2019 Hypothyroid 01/22/2014 HTN (hypertension) 01/22/2014 Atrial fibrillation with rapid ventricular respo nse Seizure Resolved Problems Problem Noted Date Diagnosed Date Resolved Date Status epilepticus 12/08/2019 0 Immunizations Immunization Administration Dates Next Due (PREVNAR 13)(6 WKS UP) PNEUM OCOCCAL CONJUGATE (PCV13) 0.5 ML, IM 12/13/2019 Influenza Vaccine High Dose 65+ Yrs IM 5 Influenza Vaccine Split 3+ Yrs PF IM 09/01/2013 Social History Tobacco Use Types Packs/Day Years Used Date Smoking Tobacco: Former Smokeless Tobacco: Never Alcohol Use Standard Drinks/Week Comments Never 0 (1 standard drink = 0.6 oz pur e alcohol) Comments Unknown Sex and Gender Information Value Date Recorded Sex Assigned at Not on file Legal Sex Female 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 Gender Identity Not on file Sexual Orientation Not on file Last Filed Vital Signs Vital Sign Reading Time Taken Comments Blood Pressure 167/82 12/13/2019 8:23 PM THERMIT WELDING MACHINE OPERATOR Pulse 67 12/13/2019 8:23 PM THERMIT WELDING MACHINE OPERATOR Temperature 36.7 C (98.1 F) 12/13/2019 4:30 PM THERMIT WELDING MACHINE OPERATOR Respiratory Rate 19 12/13/2019 8:23 PM THERMIT WELDING MACHINE OPERATOR Oxygen Saturation - - Inhaled Oxygen Concentration - - Weight 101.2 kg (223 lb 1.7 oz) 12/13/2019 5:00 AM THERMIT WELDING MACHINE OPERATOR Height 165.1 cm (5' 5 ) 12/10/2019 5:00 AM THERMIT WELDING MACHINE OPERATOR Body Mass Index 37.13 12/10/2019 5:00 AM THERMIT WELDING MACHINE OPERATOR Plan of Treatment Health Maintenance Due Date Last Done Comments DIABETES ANNUAL FOOT EXAM 1965 DIABETES ANNUAL RETINAL EXAM 1965 DIABETES MICROALBUMIN ANNUAL SCREEN 1965 LDL CHOLESTEROL ANNUAL 1965 DTAP/TDAP/TD VACCINES (1 - Tdap) 1966 ZOSTER VACCINE (1 of 2) 1997 OSTEOPOROSIS SCREENING 2012 PNEUMOCOCCAL VACCINE 50+ YEA RS (2 of 2 - PPSV23, PCV20, or PCV21) 02/07/2020 12/13/2019 DIABETES HBA1C Q 6 MONTHS 04/04/2020 10/04/2019, 08/2019 RSV VACCINE (60+ or ) (1 - 1-dose 75+ series) 2022 INFLUENZA VACCINE (#1) 2025 07/22/2015, 2012 Procedures Procedure Name Priority Date/Time Associated Diagnosis Comments HEMOGLOBIN A1C Routine 10/04/2019 4:03 AM THERMIT WELDING MACHINE OPERATOR from Last 3 Months or Most Recently Relevant to Health Maintenance Results * (ABNORMAL) HEMOGLOBIN A1C (10/04/2019 4:03 AM THERMIT WELDING MACHINE OPERATOR) HEMOGLOBIN A1C 9.3(H) <=5.6 % 10/04/2019 2:32 PM THERMIT WELDING MACHINE OPERATOR [facility] [employer] [facility] EST. AVG GLUCOSE, A1C 220 mg/dL 10/04/2019 2:32 PM THERMIT WELDING MACHINE OPERATOR [facility] Blood Venipuncture / Unknown 10/04/2019 4:03 AM THERMIT WELDING MACHINE OPERATOR 10/04/2019 4:08 AM THERMIT WELDING MACHINE OPERATOR Narrative [facility] - 10/04/2019 2:32 PM THERMIT WELDING MACHINE OPERATOR HGB A1C INTERPRETATION NORMAL: <5.7% PRE-DIABETES: 5.7 - 6.4% DIABETES: 6.5% OR GREATER us Kristopher Gunn III, DO CHEMISTRY ORDERABLES Fannie l Result [facility] CLIA# [id number] [place] [address] [facility] CLIA# [id number] [place] [address] from Last 3 Months or Most Recently Relevant to Health Maintenance
--- OUTSIDE RECORDS SUMMARY | 2025-07-04 20:52 | XMS_ITS | Clinical Summary ---
Author Organization [facility] Address [address] [place] [address] Care Team Providers Care Manager Statistical Name Role Phone Unavailable Primary Care Provider Unavailabl e Allergies Active Allergy Reactions Criticality Noted Date Comments Tetanus Toxoid Swelling Low 01/22/2014 Medications escitalopram (LEXAPRO) 20 mg tablet Take 20 mg by mouth daily. Active omeprazole (PRILOSEC) 20 mg Capsule, Delayed Release(E.C.) Take 20 mg by mouth daily. Active oxybutynin chloride (DITROPAN) 5 mg tablet Take 5 mg by mouth 2 times daily. Active metFORMIN (GLUCOPHAGE) 1,000 mg tablet Take 1,000 mg by mouth 2 times daily with meals. Active glyBURIDE (DIABETA) 2.5 mg tablet Take 4 mg by mouth daily with breakfast. Active digoxin (LANOXIN) 125 mcg (0.125 mg) tablet Take 1 Tablet (125 mcg) by mouth daily. 30 Tablet 1 0 Active diltiaZEM (CARDIZEM SR) 120 mg Extended Release 12 hour capsule Take 1 Capsule (120 mg) by mouth every 12 hours. 60 Capsule 1 0 Active metoprolol tartrate (LOPRESSOR) 100 mg tablet Take 1 Tablet (100 mg) by mouth 2 times daily. 60 Tablet 1 0 Active predniSONE 10 mg Tablets, Dose Pack Take 1 Tablet (10 mg) by mouth see administration instructions. 20 m daily for 3days 10 mg daily for 3days 10 Tablet 0 Active albuterol HFA 90 mcg inhaler Take 2 Puffs by inhalation every 4 hours as needed for Shortness of Breath. 8.5 Gram 1 0 Active atorvastatin (Lipitor) 20 mg tablet Take 1 Tablet (20 mg) by mouth daily with supper. 30 Tablet 1 0 Active apixaban (ELIQUIS) 5 mg tablet Take 1 Tablet (5 mg) by mouth 2 times daily. 60 Tablet 11 0 Active Active Problems Problem Noted Date Diagnosed Date Acute respiratory failure with hypoxia 0 Acute metabolic encephalopathy 12/08/2019 Aspiration pneumonia 12/08/2019 COPD with exacerbation 12/08/2019 Acute exacerbation of chronic obstructive pulmon tracy disease 10/06/2019 Pulmonary edema, acute 10/05/2019 Chronic a-fib 10/04/2019 RSV infection 10/04/2019 Type 2 diabetes mellitus, wi thout long-term current use of insulin 10/04/2019 Acute metabolic encephalopathy 10/03/2019 Acute on chronic respiratory failure with hypoxia and hypercapnia 10/03/2019 Aspiration pneumonia 10/03/2019 Hypothyroid 01/22/2014 HTN (hypertension) 01/22/2014 Atrial [...] Packs/Day Years Used Date Smoking Tobacco: Former Cigarettes Smokeless Tobacco: Never Tobacco Cessation:Counseling Given: No Alcohol Use Standard Drinks/Week Comments Never 0 (1 standard drink = 0.6 oz pur e alcohol) Comments Unknown Sex and Gender Information Value Date Recorded Sex Assigned at Not on file Legal Sex Female 3:19 AM LMSW Gender Identity Not on file Sexual Orientation Not on file Last Filed Vital Signs Vital Sign Reading Time Taken Comments Blood Pressure 167/82 12/13/2019 8:23 PM LMSW Pulse 67 12/13/2019 8:23 PM LMSW Temperature 36.7 C (98.1 F) 12/13/2019 4:30 PM LMSW Respiratory Rate 19 12/13/2019 8:23 PM LMSW Oxygen Saturation 94% 12/13/2019 8:23 PM LMSW Inhaled Oxygen Concentration - - Weight 101.2 kg (223 lb 1.7 oz) 12/13/2019 5:00 AM LMSW Height 165.1 cm (5' 5 ) 12/10/2019 5:00 AM LMSW Body Mass Index 37.13 12/10/2019 5:00 AM LMSW Plan of Treatment Health Maintenance Due Date [...] 12/13/2019 DIABETES HBA1C Q 6 MONTHS 04/04/2020 10/04/2019 RSV VACCINE (60+ or ) (1 - 1-dose 75+ series) 2022 INFLUENZA VACCINE (#1) 2025 07/22/2015, 2012 Procedures Procedure Name Priority Date/Time Associated Diagnosis Comments HEMOGLOBIN A1C Routine 10/04/2019 4:03 AM LMSW from Last 3 Months or Most Recently Relevant to Health Maintenance Results * (ABNORMAL) HEMOGLOBIN A1C (10/04/2019 4:03 AM LMSW) HEMOGLOBIN A1C 9.3(H) <=5.6 % 10/04/2019 2:32 PM LMSW [facility] EST. AVG GLUCOSE, A1C 220 mg/dL 10/04/2019 2:32 PM [facility] Blood Venipuncture / Unknown 10/04/2019 4:03 AM LMSW 10/04/2019 4:[address] [facility] - 10/04/2019 2:32 PM LMSW HGB A1C INTERPRETATION NORMAL: <5.7% PRE-DIABETES: 5.7 - 6.4% DIABETES: 6.5% OR GREATER us Kristopher Gunn III, DO CHEMISTRY ORDERABLES Fannie l Result [facility] CLIA# [id number] [facility] access [facility] [place] [address] from Last 3 Months or Most Recently Relevant to Health Maintenance Insurance MEDICARE PART A AND B [facility] Advance Directives For more information, please contact: [phone] * Full Code (Latest Code Status on File) Date Activated Date Inactivated Comments 12/08/2019 6:09 PM 12/14/2019 12:17 AM * Full Code Date Activated Date Inactivated Comments 10/03/2019 4:56 AM 10/12/2019 6:48 PM
--- NOTE | 2025-07-04 20:59 | W.ED.FALL ---
HPI - Fall General: Chief Complaint: Fall Stated Complaint: fall, hip pain Time Seen by Provider: 07/04/25 20:48 Source: patient and EMS Mode of arrival: EMS Limitations: no limitations History of Present Illness: 79-year-old female who [facility] patient states she had tripped and fell landing on her left side she has left hip pain. States it is worse with movement. She states she did also hit her head when she fell but denies any headache or loss consciousness Associated symptoms-after fall: Denies abdominal pain, chest pain, headache(s) or neck pain Related Data Home Medications ?Medication ?Instructions ?Recorded ?Confirmed pantoprazole 40 mg tablet,delayed 40 mg PO QAM 03/14/24 05/28/25 release aluminum-mag hydroxide-simethicone 10 ml PO Q4H PRN Indigestion 10/26/24 05/28/25 200 mg-200 mg-20 mg/5 mL oral susp docusate sodium 100 mg capsule 100 mg PO BID 10/26/24 05/28/25 rivaroxaban 20 mg tablet (Xarelto) 20 mg PO DAILY 10/26/24 05/28/25 ondansetron HCl 4 mg tablet 4 mg PO Q4H PRN Nausea And Vomiting 11/24/24 05/28/25 bisacodyl 10 mg rectal suppository 10 mg NC DAILY PRN Constipation 12/28/24 05/28/25 (Dulcolax (bisacodyl)) magnesium hydroxide 400 mg/5 mL 30 ml PO DAILY PRN Constipation 12/28/24 05/28/25 oral suspension (Milk of Magnesia) acetaminophen 325 mg tablet 650 mg PO Q4H PRN pain or fever 02/11/25 05/28/25 amiodarone 400 mg tablet 400 mg PO DAILY 02/11/25 05/28/25 atorvastatin 80 mg tablet 80 mg PO BEDTIME 02/11/25 05/28/25 levetiracetam 750 mg tablet 750 mg PO Q12H 02/11/25 05/28/25 metoprolol tartrate 100 mg tablet 100 mg PO BID 02/11/25 05/28/25 trazodone 50 mg tablet 25 mg PO BEDTIME 03/13/25 05/28/25 Previous Rx's ?Medication ?Instructions ?Recorded aspirin 81 mg tablet,delayed 81 mg PO DAILY@00 #60 tabs 03/14/24 release (Adult Low Dose Aspirin) levothyroxine 112 mcg tablet 112 mcg PO DAILY #30 tabs 10/27/24 furosemide 20 mg tablet 20 mg PO DAILY@0800 #30 tabs 03/16/25 isosorbide mononitrate 30 mg 30 mg PO DAILY #30 tabs 03/16/25 tablet,extended release 24 hr magnesium oxide 400 mg (241.3 mg 400 mg PO DAILY #30 tabs 03/16/25 magnesium) tablet nitroglycerin 0.4 mg sublingual 0.4 mg sublingual Q5M PRN Chest 03/16/25 tablet Pain #20 tabs sacubitril 49 mg-valsartan 51 mg 1 tab PO BID #60 tabs 05/28/25 tablet (Entresto) Allergies Allergy/AdvReac Type Severity Reaction Status Date / Time Penicillins Allergy Unknown Unknown Verified 05/28/25 09:55 tetanus and diphtheria Allergy Unknown Verified 05/28/25 09:55 toxoids morphine AdvReac Intermediate ADR-Confusi Verified 05/28/25 09:55 on penicillin G procaine AdvReac unknown Verified 05/28/25 09:55 Review of Systems Const: Denies: fever(s), chills, body aches or change in appetite Eyes: Denies: blurry vision or eye discomfort ENMT: Denies: throat pain or dental pain Card: Denies: chest pain Resp: Denies: dyspnea GI: Denies: abdominal pain, nausea, vomiting or diarrhea Musc: Reports: extremity pain; Denies: neck pain or back pain Skin/Breast: Denies: rash Neuro: Denies: headache(s) PFSH ED PFSH: Medical History 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 Paroxysmal A-fib Cerebrovascular accident (CVA), unspecified mechanism UTI (urinary tract infection) Hypotension Aphasia Multiple falls Altered mental status Acute cystitis Hypersomnia TIA (transient ischemic attack) Recurrent UTI Medication noncompliance due to cognitive impairment Need for assistance with personal care Need for assistance due to reduced mobility Mild cognitive impairment with memory loss Oxygen dependent ANGIE (acute kidney injury) Hypertension Transient cerebral ischemia Chronic migraine without aura, intractable, with status migrainosus GERD (gastroesophageal reflux disease) 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) Dementia Obstructive sleep apnea Sleep apnea Type 2 diabetes mellitus Tachy-martin syndrome Non-insulin dependent diabetes mellitus -A1c (12/2019): 8.3 -Accucheks, ISS, hypoglycemia precautions -consistent carb diet as tolerated -takes metformin at home, can resume on d/c Drug-induced bradycardia Digoxin was discontinued along beta-alexandrea Atrial flutter Diastolic heart failure Generalized epilepsy CHF (congestive heart failure) Atrial fibrillation Severe obstructive sleep apnea Hypothyroidism Depressed Atrial dysrhythmia Diabetes 1.5, managed as type 2 Sleep apnea in adult Stroke due to embolism of left middle cerebral artery -prior hx of L MCA CVA in 05/2019; did not receive tPA -has been f/u with Dr. Randall -attributed to atrial fibrillation -on ASA, statin, AC with Eliquis -has residual cognitive impairment Seizure Heart failure Surgical History Status post cardiac pacemaker procedure No pertinent past surgical history Family History Sister Diabetes Father Heart disease Mother Heart disease Social History Smoking and tobacco/nicotine status: former use of tobacco/nicotine Quit status (tobacco/nicotine): has quit using Former quit date comment: 30 years ago after 1 pack/day for 10 years Alcohol intake: never Substance/Drug Use: never Additional social history: She wants DNR status as discussed today with patient and sister Brooke on 03/13/2025 Physical Exam Const: COMMON NORMALS: patient oriented x3 HENMT: COMMON NORMALS: normocephalic and atraumatic HEAD & SCALP: normocephalic and atraumatic Eye: COMMON NORMALS: Equal, round and reactive pupils present and EOMs intact bilaterally PUPIL: Yes Equal, round and reactive pupils present Neck/C-Spine: COMMON NORMALS: full ROM and supple Chest: COMMONS NORMALS: normal inspection of the chest Resp: COMMON NORMALS: normal respiratory effort, No retractions, No use of accessory muscles and clear to auscultation bilaterally AUSCULTATION: clear to auscultation bilaterally Cardio: COMMON NORMALS: regular rate, regular rhythm and No murmurs present (Cardio) RATE: regular rate RHYTHM: regular rhythm GI: COMMON NORMALS: Normal to inspection, nondistended, normoactive bowel sounds present, Soft to palpation, non-tender and no masses PALPATION: Yes Soft to palpation Extremity: NARRATIVE EXTREMITY EXAM: Tenderness noted left hip distal pulses sensation intact Neuro: COMMON NORMALS: patient oriented x3, moves all extremities and no focal motor deficits Psych: COMMON NORMALS: mental status grossly normal, Normal thought process present and cooperative THOUGHT PROCESS: Normal thought process present Skin: COMMON NORMALS: no rashes or lesions noted and no wounds GENERAL SKIN EXAM: no rashes or lesions noted Course Vital Signs: Vital signs: Vital Signs Temperature 98.8 F 07/04/25 20:47 Pulse Rate 60 07/04/25 22:07 Respiratory Rate 16 07/04/25 22:07 Blood Pressure 187/107 07/04/25 22:07 Pulse Oximetry 95 07/04/25 22:07 Oxygen Delivery Me thod Room Air 07/04/25 22:07 MDM - Fall Medical Decision Making Patient presents here with left hip fracture from a fall head CT is negative no other injuries noted spoke to hospitalist along with orthopedist will admit. Medical Records I reviewed the patient's medical records. Lab Data I reviewed the patient's lab results. 07/04/25 21:52 07/04/25 21:52 Radiology Impressions Chest X-Ray 07/04/25 20:50 IMPRESSION: No acute finding. Hip/Pelvis X-Ray 07/04/25 20:50 IMPRESSION: Acute mildly displaced basicervical fracture of the left femoral neck. Head CT 07/04/25 21:15 IMPRESSION: No acute intracranial abnormality. Hip CT 07/04/25 21:15 IMPRESSION: Acute mildly displaced basicervical fracture of the left femoral neck. Laboratory Results WBC 6.84 10^3/uL (3.29-11.43) 07/04/25 21:52 RBC 4.04 10^6/uL (3.85-5.65) 07/04/25 21:52 Hgb 12.30 g/dL (11.27-16.99) 07/04/25 21:52 Hct 38.9 % (36-47) 07/04/25 21:52 MCV 96.3 fl (85-98) 07/04/25 21:52 MCH 30.4 pg (27-33) 07/04/25 21:52 MCHC 31.6 g/dL (30-55) 07/04/25 21:52 RDW 15.0 % (12.1-15.1) 07/04/25 21:52 Plt Count 146 10^3/cmm (157-399) L 07/04/25 21:52 MPV 10.7 fL (7.4-10.4) H 07/04/25 21:52 Neut % (Auto) 73.0 % 07/04/25 21:52 Lymph % (Auto) 17.7 % 07/04/25 21:52 [place] % (Auto) 7.3 % 07/04/25: Eos % (Auto) 0.9 % 07/04/25: Baso % (Auto) 0.4 % 07/04/25: Neut # (Auto) 4.99 10^3/uL (1.8-7.7) 07/04/25 21:52 Lymph # (Auto) 1.2 10^3/uL (0.8-4.8) 07/04/25 21:52 [place] # (Auto) 0.5 10^3/uL (0.2-0.9) 07/04/25 21:52 Eos # (Auto) 0.1 10^3/uL (0.0-0.8) 07/04/25 21:52 Baso # (Auto) 0.0 10^3/uL (0.0-0.1) 07/04/25: Nucleated RBC % (auto) 0 % 07/04/25:52 Nucleated RBCs # 0.0 /100WBC 07/04/25 21:52 All radiology interpretation(s) finalized by discharge Discharge Plan Discharge Patient Disposition: Admitted As Inpatient Clinical Impression: Closed fracture of left hip Condition: Stable Coding Level of Care Code ED Relay Tester for Morgan Sanchez
--- NOTE | 2025-07-04 21:15 | CTR_ITS ---
PROCEDURE INFORMATION: Exam: CT Left Lower Extremity Without Contrast, Hip Exam date and time: 07/04/2025 9:31 PM Age: 79 years old Clinical indication: Injury or trauma; Fall; Blunt trauma; Hip; Left TECHNIQUE: Imaging protocol: CT of the left lower extremity without contrast was performed. Exam focused on the hip. Radiation optimization: All CT scans at this facility use at least one of these dose optimization techniques: automated exposure control; mA and/or kV adjustment per patient size (includes targeted exams where dose is matched to clinical indication); or iterative reconstruction. COMPARISON: CR (PELVIS, ) 07/04/2025 8:57 PM RADIATION DOSE METRICS: Total DLP (mGy-cm): 510.51 FINDINGS: Bones/joints: Diffusely decreased bone density. No left hip joint malalignment. Acute mildly displaced basicervical fracture of the left femoral neck. The remainder of the visualized osseous structures are intact. Soft tissues: Unremarkable. CT/CT hip LT wo con* [id number] IMPRESSION: Acute mildly displaced basicervical fracture of the left femoral neck.
--- NOTE | 2025-07-04 21:15 | CTR_ITS ---
PROCEDURE INFORMATION: Exam: CT Head Without Contrast Exam date and time: 07/04/2025 9:27 PM Age: 79 years old Clinical indication: Injury or trauma; Fall; Blunt trauma (contusions or hematomas); With loss of consciousness; Not specified TECHNIQUE: Imaging protocol: Computed tomography of the head without contrast. Radiation optimization: All CT scans at this facility use at least one of these dose optimization techniques: automated exposure control; mA and/or kV adjustment per patient size (includes targeted exams where dose is matched to clinical indication); or iterative reconstruction. COMPARISON: CT head wo con* [id number] 12/27/2024 6:07 PM RADIATION DOSE METRICS: Total DLP (mGy-cm): 1104.68 FINDINGS: Brain: Large remote left posterior MCA distribution infarction not changed compared to prior. Remote bilateral cerebellar infarctions, also unchanged. Cerebral ventricles: No ventriculomegaly. Paranasal sinuses: Visualized sinuses are unremarkable. No fluid levels. Mastoid air cells: Visualized mastoid air cells are well aerated. Bones: Unremarkable. No acute fracture. Soft tissues: Unremarkable. CT/CT head wo con* [id number] IMPRESSION: No acute intracranial abnormality.
[2025-07-04 21:57] LABS: Hematocrit 38.9 % (36-47); Hemoglobin 12.30 g/dL (11.27-16.99); Mean Corpuscular HGB Conc 31.6 g/dL (30-55); Mean Corpuscular Hemoglobin 30.4 pg (27-33); Mean Corpuscular Volume 96.3 fl (85-98); Nucleated Red Blood Cells % 0 %; Platelet Count 146 10^3/cmm (157-399); Red Blood Count 4.04 10^6/uL (3.85-5.65); White Blood Count 6.84 10^3/uL (3.29-11.43)
--- NOTE | 2025-07-04 22:06 | ECG_ITS ---
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 Measurements Intervals Bumpass Rate: 63 P: -50 PA: 298 QRS: -9 QRSD: 109 T: 27 QT: 381 QTc: 392 Interpretive Statements ELECTRONIC ATRIAL PACEMAKER ATRIAL PACED VENTRICULAR SENSED RHYTHM LEFT VENTRICULAR HYPERTROPHY AND ST-T CHANGE [VOLTAGE CRITERIA PLUS ST/T ABNORMALITY] POSSIBLE SEPTAL MYOCARDIAL INFARCTION , OF INDETERMINATE AGE [30 ms Q WAVE IN V1/V2] Compared to ECG 03/14/2025 09:22:19 Atrial fibrillation no longer present Ventricular-paced complex(es) or rhythm no longer present ST DEPRESSION AND T WAVE INVERSIONS HAVE DECREASED Electronically Signed On 07-04-2025 22:49:48 CDT by Mansoor Wilder M.D. [id number]
[2025-07-04 22:07] VITALS: BP 187/107; PULSE 60; RESP 16; O2SAT 95
[2025-07-04 22:25] LABS: INR 1.34 (0.8-1.2); Prothrombin Time 17.50 SECONDS (12.1-14.9)
[2025-07-04 22:30] LABS: Alanine Aminotransferase 25 U/L (0-33); Albumin Level 3.5 g/dL (3.5-5.2); Alkaline Phosphatase 111 U/L (35-105); Anion Gap 10.7 (5-19); Aspartate Amino Transferase 22 U/L (0-32); Blood Urea Nitrogen 23 mg/dL (8-23); Calcium 9.7 mg/dL (8.5-10.5); Carbon Dioxide 31 mmol/L (22-29); Chloride 107 mmol/L (98-107); Creatinine Clr Calc Pharmacy 45.9365; Globulin 2.4 g/dL (1.3-4.6); Glucose 166 mg/dL (65-115); NT Pro B Type Natriuretic Pept 1001 pg/mL (0-450); Osmolality Calculated 307 mOsm/kg (285-295); Potassium 3.7 mmol/L (3.5-5.1); Sodium 145 mmol/L (136-145); Total Protein 5.9 g/dL (6.6-8.7)
[2025-07-04] MEDS: HYDROmorphone 0.5 MG/0.5 ML INJ 1 MG IVP (23:05)
--- NOTE | 2025-07-04 23:21 | PM.HP ---
Providers/Chief Complaint Admitting Physician: Jessenia Hay MD--patient seen and evaluated before 12 midnight Primary Care Provider: Home Philip DO Chief Complaint: fall, hip pain History of Present Illness Gianluca Godoe is a 79 year old female with medical history significant for prior stroke with expressive aphasia, history of high blood pressure presented to the emergency room after she had taken a mechanical fall and fracturing the left hip. Emergency room attending had consulted hospitalist to evaluate patient for admission. I have seen and evaluated patient as I walked into the room blood pressure is pretty much up at 187/104. I repeated the blood pressure it was 203/115. Patient complains been in pain and had not gotten pain medication yet. 1 mg of IV Dilaudid ordered to allow an interval of half an hour to see if this will affect the blood pressure. Blood pressure be optimized patient will be admitted to medical surgical unit with orthopedics consultation with Dr. Robison patient blood pressure had come down from 203/115down to 166/73 just on pain medication one-time dose of 1 mg IV Dilaudid Will control pain and monitor blood pressure would be cautious of adding any antihypertensive in the setting of hip fracture for patient may be bleeding. Must continue to monitor and optimize Review of Systems Narrative: System review upon 10 organ review is significant for musculoskeletal disorder status post left hip fracture. Otherwise unremarkable however must be noted that patient has expressive aphasia that is old from an old stroke. Medications/Allergies Home Medications ?Medication ?Instructions ?Recorded ?Confirmed ?Last Taken ?Type aspirin 81 mg tablet,delayed 81 mg PO DAILY@0800 #60 tabs 03/14/24 05/28/25 03/13/25 Rx release (Adult Low Dose Aspirin) pantoprazole 40 mg tablet,delayed 40 mg PO QAM 03/14/24 05/28/25 03/13/25 History release aluminum-mag hydroxide-simethicone 10 ml PO Q4H PRN Indigestion 10/26/24 05/28/25 Unknown History 200 mg-200 mg-20 mg/5 mL oral susp docusate sodium 100 mg capsule 100 mg PO BID 10/26/24 05/28/25 03/13/25 History rivaroxaban 20 mg tablet (Xarelto) 20 mg PO DAILY 10/26/24 05/28/25 03/13/25 History levothyroxine 112 mcg tablet 112 mcg PO DAILY #30 tabs 10/27/24 05/28/25 03/13/25 Rx ondansetron HCl 4 mg tablet 4 mg PO Q4H PRN Nausea And Vomiting 11/24/24 05/28/25 01/26/25 History bisacodyl 10 mg rectal suppository 10 mg [place] DAILY PRN Constipation 12/28/24 05/28/25 Unknown History (Dulcolax (bisacodyl)) magnesium hydroxide 400 mg/5 mL 30 ml PO DAILY PRN Constipation 12/28/24 05/28/25 Unknown History oral suspension (Milk of Magnesia) acetaminophen 325 mg tablet 650 mg PO Q4H PRN pain or fever 02/11/25 05/28/25 Unknown History amiodarone 400 mg tablet 400 mg PO DAILY 02/11/25 05/28/25 03/13/25 History atorvastatin 80 mg tablet 80 mg PO BEDTIME 02/11/25 05/28/25 03/12/25 History levetiracetam 750 mg tablet 750 mg PO Q12H 02/11/25 05/28/25 03/13/25 History metoprolol tartrate 100 mg tablet 100 mg PO BID 02/11/25 05/28/25 03/13/25 History trazodone 50 mg tablet 25 mg PO BEDTIME 03/13/25 05/28/25 03/12/25 History furosemide 20 mg tablet 20 mg PO DAILY@0800 #30 tabs 03/16/25 05/28/25 Unknown Rx isosorbide mononitrate 30 mg 30 mg PO DAILY #30 tabs 03/16/25 05/28/25 Unknown Rx tablet,extended release 24 hr magnesium oxide 400 mg (241.3 mg 400 mg PO DAILY #30 tabs 03/16/25 05/28/25 Unknown Rx magnesium) tablet nitroglycerin 0.4 mg sublingual 0.4 mg sublingual Q5M PRN Chest 03/16/25 05/28/25 Unknown Rx tablet Pain #20 tabs sacubitril 49 mg-valsartan 51 mg 1 tab PO BID #60 tabs 05/28/25 05/28/25 Unknown Rx tablet (Entresto) Allergies Allergy/AdvReac Type Severity Reaction Status Date / Time Penicillins Allergy Unknown Unknown Verified 05/28/25 09:55 tetanus and diphtheria Allergy Unknown Verified 05/28/25 09:55 toxoids morphine AdvReac Intermediate ADR-Confusi Verified 05/28/25 09:55 on penicillin G procaine AdvReac unknown Verified 05/28/25 09:55 PFSH Acute PFSH: Medical History 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 Paroxysmal A-fib Cerebrovascular accident (CVA), unspecified mechanism UTI (urinary tract infection) Hypotension Aphasia Multiple falls Altered mental status Acute cystitis Hypersomnia TIA (transient ischemic attack) Recurrent UTI Medication noncompliance due to cognitive impairment Need for assistance with personal care Need for assistance due to reduced mobility Mild cognitive impairment with memory loss Oxygen dependent ANGIE (acute kidney injury) Hypertension Transient cerebral ischemia Chronic migraine without aura, intractable, with status migrainosus GERD (gastroesophageal reflux disease) 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) Dementia Obstructive sleep apnea Sleep apnea Type 2 diabetes mellitus Tachy-martin syndrome Non-insulin dependent diabetes mellitus -A1c (12/2019): 8.3 -Accucheks, ISS, hypoglycemia precautions -consistent carb diet as tolerated -takes metformin at home, can resume on d/c Drug-induced bradycardia Digoxin was discontinued along beta-alexandrea Atrial flutter Diastolic heart failure Generalized epilepsy CHF (congestive heart failure) Atrial fibrillation Severe obstructive sleep apnea Hypothyroidism Depressed Atrial dysrhythmia Diabetes 1.5, managed as type 2 Sleep apnea in adult Stroke due to embolism of left middle cerebral artery -prior hx of L MCA CVA in 05/2019; did not receive tPA -has been f/u with Dr. Randall -attributed to atrial fibrillation -on ASA, statin, AC with Eliquis -has residual cognitive impairment Seizure Heart failure Surgical History Status post cardiac pacemaker procedure No pertinent past surgical history Family History Sister Diabetes Father Heart disease Mother Heart disease Social History Smoking and tobacco/nicotine status: former use of tobacco/nicotine Quit status (tobacco/nicotine): has quit using Former quit date comment: 30 years ago after 1 pack/day for 10 years Alcohol intake: never Substance/Drug Use: never Additional social history: She wants DNR status as discussed today with patient and sister Brooke on 03/13/2025 Vitals/I&O/Wt Last Vital Signs Temp 98.8 F 07/04/25 20:47 Pulse 60 07/04/25 22:07 Resp 16 07/04/25 22:07 BP 187/107 07/04/25 22:07 Pulse Ox 95 07/04/25 22:07 O2 Del Method Room Air 07/04/25 22:07 Weight last 48 hrs Weight 99.79 kg Physical Exam Narrative: Patient seen and evaluated in the emergency room looks well but with expressive aphasia, lying still in bed apprehensive of left hip pain on movement. HEENT normocephalic/atraumatic neck neck is supple cardiovascular heart rate is regular lungs are pretty much clear abdomen soft nontender nondistended unremarkable extremities are intact no edema has good pulses neurology has no focality lab studies lab studies reviewed and noted. Data 07/04/25 21:52 07/04/25 21:52 A&P Assessment and plan 1. Closed fracture of left hip: 2. Acute on chronic combined systolic (congestive) and diastolic (congestive) heart failure: 3. History of CVA in adulthood: 4. Chest pain due to myocardial ischemia: 5. Multi-infarct dementia: 6. Left acute arterial ischemic stroke, MCA (middle cerebral artery): 7. Aphasia as late effect of stroke: Plan: #1 Status post mechanical fall with left hip fracture - Admit to MedSur unit - Orthopedics consulted by the ED attending with Dr. Keys for repair of the left hip fracture - Pain management with Dilaudid patient is allergic to morphine - Gentle hydration at 75 cc/h with normal saline - Keep patient n.p.o. after 12 midnight for possible repair of the left hip in a.m. - Orthopedics on board #2 Dehydration - Initiate gentle hydration as needed #3 GI and DVT prophylaxis in place - Avoid heparin because of risks of bleeding patient is status post hip fracture, use SCD as ordered on the contralateral extremity #4 History of ischemic chest pain/multi infarct dementia/left ischemic stroke MCA/expressive aphasia from CVA History of CHF/hypothyroidism/hypertension/hyperlipidemia - Continue home medication for patient chronic medical conditions where appropriate -Will be cautious on placing patient on antihypotension at this time because of risks of bleeding -Will continue pain management that will help to control patient blood pressure at this time - PDMP PDMP Reviewed: Not Reviewed Attestations Medical Necessity Statement*: Patient is status post hip fracture yet to be repaired patient would need at least 2 midnights to optimize care patient is inpatient Coding Level of Care Code 30957 Diagnoses Closed fracture of left hip S72.002A Acute on chronic combined systolic (congestive) and diastolic (congestive) heart failure I50.43 History of CVA in adulthood Z86.73 Chest pain due to myocardial ischemia I25.9 Multi-infarct dementia F01.50 Left acute arterial ischemic stroke, MCA (middle cerebral artery) I63.512 Aphasia as late effect of stroke I69.320 Time Spent (min) 60
[2025-07-04 23:30] VITALS: BP 166/71; PULSE 60; RESP 14; O2SAT 94
[2025-07-04 23:43] VITALS: BP 153/73; PULSE 65; RESP 16; O2SAT 94
[2025-07-05] VITALS (10 sets, daily range): BP systolic 144–200; BP diastolic 62–77; PULSE 59–63; RESP 16–20; TEMP 36.4–37.2; O2SAT 91–97; BMI 33.0
[2025-07-05] MEDS: HYDROmorphone 0.5 MG/0.5 ML INJ IVP ×4 (02:55→20:36)
[2025-07-05 03:31] LABS: Hematocrit 39.3 % (36-47); Hemoglobin 12.40 g/dL (11.27-16.99); Mean Corpuscular HGB Conc 31.6 g/dL (30-55); Mean Corpuscular Hemoglobin 30.5 pg (27-33); Mean Corpuscular Volume 96.8 fl (85-98); Nucleated Red Blood Cells % 0 %; Platelet Count 141 10^3/cmm (157-399); Red Blood Count 4.06 10^6/uL (3.85-5.65); White Blood Count 10.47 10^3/uL (3.29-11.43)
[2025-07-05 03:51] LABS: Alanine Aminotransferase 24 U/L (0-33); Albumin Level 3.5 g/dL (3.5-5.2); Alkaline Phosphatase 107 U/L (35-105); Anion Gap 10.7 (5-19); Aspartate Amino Transferase 22 U/L (0-32); Blood Urea Nitrogen 21 mg/dL (8-23); Calcium 9.6 mg/dL (8.5-10.5); Carbon Dioxide 31 mmol/L (22-29); Chloride 107 mmol/L (98-107); Creatinine Clr Calc Pharmacy 52.2496; Globulin 2.4 g/dL (1.3-4.6); Glucose 202 mg/dL (65-115); Magnesium 1.9 mg/dL (1.7-2.3); Osmolality Calculated 309 mOsm/kg (285-295); Potassium 3.7 mmol/L (3.5-5.1); Sodium 145 mmol/L (136-145); Total Protein 5.9 g/dL (6.6-8.7)
--- NOTE | 2025-07-05 13:10 | PM.CONSULT ---
Providers/Reason For Consult Consulting Physician/Specialty*: Chente Robison MD, orthopedic surgery Reason for Consult*: Fracture left hip Attending Physician: Meir Nunes MD Primary Care Provider: Home Philip DO History of Present Illness History of Present Illness Gianluca Goode is a 79 year old female Review of Systems Narrative: System review upon 10 organ review is significant for musculoskeletal disorder status post left hip fracture. Otherwise unremarkable however must be noted that patient has expressive aphasia that is old from an old stroke. Const: Denies: fever(s), chills, body aches or change in appetite Eyes: Denies: blurry vision, photophobia or eye discomfort ENMT: Denies: throat pain or dental pain Card: Denies: chest pain Resp: Denies: dyspnea GI: Denies: abdominal pain, nausea, vomiting or diarrhea Musc: Reports: extremity pain; Denies: neck pain, back pain or joint warmth Skin/Breast: Denies: rash Neuro: Denies: headache(s) All/Imm: Denies: acute wheezing Medications/Allergies Home Medications ?Medication ?Instructions ?Recorded ?Confirmed ?Last Taken ?Type aspirin 81 mg tablet,delayed 81 mg PO DAILY@0800 #60 tabs 03/14/24 07/05/25 07/04/25 Rx release (Adult Low Dose Aspirin) pantoprazole 40 mg tablet,delayed 40 mg PO QAM 03/14/24 07/05/25 07/04/25 History release aluminum-mag hydroxide-simethicone 10 ml PO Q4H PRN Indigestion 10/26/24 07/05/25 Unknown History 200 mg-200 mg-20 mg/5 mL oral susp docusate sodium 100 mg capsule 100 mg PO BID 10/26/24 07/05/25 07/04/25 History rivaroxaban 20 mg tablet (Xarelto) 20 mg PO DAILY 10/26/24 07/05/25 07/04/25 History levothyroxine 112 mcg tablet 112 mcg PO DAILY #30 tabs 10/27/24 07/05/25 07/04/25 Rx ondansetron HCl 4 mg tablet 4 mg PO Q4H PRN Nausea And Vomiting 11/24/24 07/05/25 01/26/25 History bisacodyl 10 mg rectal suppository 10 mg [place] DAILY PRN Constipation 12/28/24 07/05/25 Unknown History (Dulcolax (bisacodyl)) magnesium hydroxide 400 mg/5 mL 30 ml PO DAILY PRN Constipation 12/28/24 07/05/25 Unknown History oral suspension (Milk of Magnesia) acetaminophen 325 mg tablet 325 mg PO Q4H PRN pain or fever 02/11/25 07/05/25 Unknown History amiodarone 400 mg tablet 400 mg PO DAILY 02/11/25 07/05/25 07/04/25 History atorvastatin 80 mg tablet 80 mg PO BEDTIME 02/11/25 07/05/25 07/03/25 History levetiracetam 750 mg tablet 750 mg PO Q12H 02/11/25 07/05/25 07/04/25 History metoprolol tartrate 100 mg tablet 100 mg PO BID 02/11/25 07/05/25 07/04/25 History trazodone 50 mg tablet 25 mg PO BEDTIME 03/13/25 07/05/25 07/03/25 History furosemide 20 mg tablet 20 mg PO DAILY@0800 #30 tabs 03/16/25 07/05/25 07/04/25 Rx isosorbide mononitrate 30 mg 30 mg PO DAILY #30 tabs 03/16/25 07/05/25 07/04/25 Rx tablet,extended release 24 hr magnesium oxide 400 mg (241.3 mg 400 mg PO DAILY #30 tabs 03/16/25 07/05/25 07/04/25 Rx magnesium) tablet nitroglycerin 0.4 mg sublingual 0.4 mg sublingual Q5M PRN Chest 03/16/25 07/05/25 Unknown Rx tablet Pain #20 tabs sacubitril 49 mg-valsartan 51 mg 1 tab PO BID #60 tabs 05/28/25 07/05/25 07/04/25 Rx tablet (Entresto) Lactobacillus rhamnosus GG 10 1 cap PO BID 07/05/25 07/05/25 07/04/25 History billion cell capsule (Culturelle) acetaminophen 500 mg tablet 500 mg PO BID PRN Pain 07/05/25 07/05/25 Unknown History nitrofurantoin 100 mg PO BID 07/05/25 07/05/25 07/04/25 History monohydrate/macrocrystals 100 mg capsule Allergies Allergy/AdvReac Type Severity Reaction Status Date / Time Penicillins Allergy Unknown Unknown Verified 05/28/25 09:55 tetanus and diphtheria Allergy Unknown Verified 05/28/25 09:55 toxoids morphine AdvReac Intermediate ADR-Confusi Verified 05/28/25 09:55 on penicillin G procaine AdvReac unknown Verified 05/28/25 09:55 Current Medications Generic Name Dose Route Start Last Admin Trade Name Freq PRN Reason Stop Dose Admin Docusate Sodium 100 mg 07/05/25 09:00 07/05/25 07:51 Docusate Sodium 100 Mg Capsule PO 100 mg BID ART Administration Hydromorphone HCl 0.5 mg 07/04/25 23:21 07/05/25 11:17 Hydromorphone 0.5 Mg/0.5 Ml Inj IVP 0.5 mg Q4H PRN Administration MODERATE AGITATION Sodium Chloride 1,000 mls @ 75 mls/hr 07/04/25 23:58 07/05/25 00:09 Sodium Chloride 0.9% IV 75 mls/hr .[id number] ART Administration Pantoprazole Sodium 40 mg 07/05/25 09:00 07/05/25 07:[address] 40 Mg Tablet PO 40 mg DAILY ART Administration PFSH Acute PFSH: Medical History (Updated 07/05/25 @ 13:14 by Chente Robison MD) 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 Paroxysmal A-fib Cerebrovascular accident (CVA), unspecified mechanism UTI (urinary tract infection) Hypotension Aphasia Multiple falls Altered mental status Acute cystitis Hypersomnia TIA (transient ischemic attack) Recurrent UTI Medication noncompliance due to cognitive impairment Need for assistance with personal care Need for assistance due to reduced mobility Mild cognitive impairment with memory loss Oxygen dependent ANGIE (acute kidney injury) Hypertension Transient cerebral ischemia Chronic migraine without aura, intractable, with status migrainosus GERD (gastroesophageal reflux disease) 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) Dementia Obstructive sleep apnea Sleep apnea Type 2 diabetes mellitus Tachy-martin syndrome Non-insulin dependent diabetes mellitus -A1c (12/2019): 8.3 -Accucheks, ISS, hypoglycemia precautions -consistent carb diet as tolerated -takes metformin at home, can resume on d/c Drug-induced bradycardia Digoxin was discontinued along beta-alexandrea Atrial flutter Diastolic heart failure Generalized epilepsy CHF (congestive heart failure) Atrial fibrillation Severe obstructive sleep apnea Hypothyroidism Depressed Atrial dysrhythmia Diabetes 1.5, managed as type 2 Sleep apnea in adult Stroke due to embolism of left middle cerebral artery -prior hx of L MCA CVA in 05/2019; did not receive tPA -has been f/u with Dr. Randall -attributed to atrial fibrillation -on ASA, statin, AC with Eliquis -has residual cognitive impairment Seizure Heart failure Surgical History Status post cardiac pacemaker procedure No pertinent past surgical history Family History Sister Diabetes Father Heart disease Mother Heart disease Social History Smoking and tobacco/nicotine status: former use of tobacco/nicotine Quit status (tobacco/nicotine): has quit using Former quit date comment: 30 years ago after 1 pack/day for 10 years Alcohol intake: never Substance/Drug Use: never Additional social history: She wants DNR status as discussed today with patient and sister Brooke on 03/13/2025 Dietary Habits: Current diet type/program: diabetic Caffeine: Yes Vitals/I&O/Wt Last Vital Signs Temp 98.4 F 07/05/25 11:35 Pulse 60 07/05/25 11:35 Resp 18 07/05/25 11:35 BP 172/65 07/05/25 11:35 Pulse Ox 91 07/05/25 11:35 O2 Del Method Nasal Cannula 07/05/25 11:35 O2 Flow Rate 3 07/05/25 07:52 07/04/25 07/05/25 07/05/25 22:59 06:59 14:59 Output Total 200 / 200 Balance -200 / -200 Weight last 48 hrs Weight 198 lb 6.4 oz Weight 198 lb 11.2 oz Weight 220 lb Physical Exam Narrative: On examining this patient today she is laying in bed supine. She appears to be comfortable at this time. Only indicates she has pain if she moves about. Left lower extremity is neurovasc intact. She has pain at the hip region with any type of manipulation. Data 07/05/25 03:07/05/25 03:09 X-rays as well as CT scan of the left hip have been reviewed demonstrating a base of the femoral neck fracture: My impression: Left femoral neck fracture A&P Assessment and plan 1. Closed fracture of left hip, initial encounter: Patient has a closed minimally displaced femoral neck fracture of the left hip. Plan: Plan at this time is for endoprosthetic replacement of her left hip. Surgery will be planned for 07/06/2025. We must allow time for her Xarelto to metabolize your system. Last dose of Xarelto was yesterday morning. PDMP PDMP Reviewed: Not Reviewed Consult Attestations Medical Necessity Statement: Patient in need of surgical repair of her left hip. Presently on Xarelto we need to wait at least 24 to 48 hours before performing surgery. It appears that she had her last Xarelto yesterday morning so by tomorrow she was should be a stable candidate for endoprosthetic replacement of the hip. Coding Level of Care Code Critical Care >/= 30 minutes Diagnoses Closed fracture of left hip, initial encounter S72.002A Encounter type: initial encounter
--- NOTE | 2025-07-05 14:43 | P.PN_ITS ---
Subjective 2 Subjective: Patient was seen this morning, currently alert to person, to place, not to time, she does follow commands, she does have word finding difficulty as a result of her history of CVA, but she does follow commands, she does not know that she understands, she can answer simple yes or no questions but her aphasia at times does preclude history taking, she denies any focal weakness after her stroke she moves bilateral upper and lower extremities, does report knee pain, pain in her left ankle, discussed doing an x-ray she does report hitting her head, but no neck pain, Vitals/I&O/Wt Last Vital Signs Temp 98.4 F 07/05/25 11:35 Pulse 60 07/05/25 11:35 Resp 18 07/05/25 11:35 BP 172/65 07/05/25 11:35 Pulse Ox 91 07/05/25 11:35 O2 Del Method Nasal Cannula 07/05/25 11:35 O2 Flow Rate 3 07/05/25 07:52 07/04/25 07/05/25 07/05/25 22:59 06:59 14:59 Intake Total 1000 / 1000 Output Total 200 / 200 Balance -200 / -200 1000 / 1000 Weight last 48 hrs Weight 89.993 kg Weight 90.129 kg Weight 99.79 kg Physical Exam 2 Const: COMMON NORMALS: no acute distress ORIENTATION/CONSCIOUSNESS: Yes awake and Yes oriented to person Resp: COMMON NORMALS: normal respiratory effort, No retractions, No use of accessory muscles and clear to auscultation bilaterally AUSCULTATION: clear to auscultation bilaterally Cardio: COMMON NORMALS: regular rate, regular rhythm, S1 normal heart sound present and S2 normal heart sound present RATE: regular rate RHYTHM: r egular rhythm HEART SOUNDS: S1 normal heart sound present and S2 normal heart sound present GI: COMMON NORMALS: Normal to inspection, nondistended, normoactive bowel sounds present Extremity: COMMON NORMALS: no pedal edema Neuro: SENSORIUM/ORIENTATION: Yes oriented to person Data 07/05/25 03:09 07/05/25 03:09 A&P Assessment and plan 1. Closed fracture of left hip: 2. Acute on chronic combined systolic (congestive) and diastolic (congestive) heart failure: 3. History of CVA in adulthood: 4. Chest pain due to myocardial ischemia: 5. Multi-infarct dementia: 6. Left acute arterial ischemic stroke, MCA (middle cerebral artery): 7. Aphasia as late effect of stroke: Plan: #1 Status post mechanical fall with left hip fracture CT left hip CT/CT hip LT wo con* [id number] IMPRESSION: Acute mildly displaced basicervical fracture of the left femoral neck. - Last dose of Xarelto was morning of 07/04/2024 currently on hold - Orthopedics consulted - Continue IV Dilaudid - IV fluids - N.p.o. midnight - Await urinalysis #2 Dehydration - IV fluids #3 History of multi infarct dementia, left ischemic stroke MCA,expressive aphasia from CVA -Monitor Hypothyroidism, continue levothyroxine Hyperlipidemia continue with thyroxine History of seizures continue Keppra History of atrial fibrillation continue amiodarone, metoprolol, continue aspirin, statin, -Will resume Xarelto postoperatively Type 2 diabetes mellitus, low-dose sliding scale - PDMP PDMP Reviewed: Not Reviewed Attestations 2 Medical Necessity Statement*: Patient requires hospitalization for left hip fracture status post fall Diagnoses Closed fracture of left hip S72.002A Acute on chronic combined systolic (congestive) and diastolic (congestive) heart failure I50.43 History of CVA in adulthood Z86.73 Chest pain due to myocardial ischemia I25.9 Multi-infarct dementia F01.50 Left acute arterial ischemic stroke, MCA (middle cerebral artery) I63.512 Aphasia as late effect of stroke I69.320
--- NOTE | 2025-07-05 14:45 | XRR_ITS ---
PROCEDURE INFORMATION: Exam: XR Left Knee Exam date and time: 07/05/2025 02:56 PM Age: 79 years old Clinical indication: Pain; Knee; Left TECHNIQUE: Imaging protocol: Radiologic exam of the left knee. Views: 1 or 2 views. COMPARISON: CT hip LT wo con* [id number] 07/04/2025 09:31 PM FINDINGS: Bones/joints: Normal bony alignment. No knee joint effusion. Osteopenia. Subtle lateral compartment meniscal calcifications. Soft tissues: Normal. Atherosclerotic vascular disease. XR/XR knee LT 1-2V [id number] IMPRESSION: No acute osseous abnormality.
--- NOTE | 2025-07-05 14:45 | XRR_ITS ---
PROCEDURE INFORMATION: Exam: XR Left Ankle Exam date and time: 07/05/2025 02:53 PM Age: 79 years old Clinical indication: Injury or trauma; Fall; Blunt trauma; Ankle; Left; Additional info: Pain TECHNIQUE: Imaging protocol: Radiologic exam of the left ankle. Views: 1 or 2 views. COMPARISON: CT hip LT wo con* [id number] 07/04/2025 09:31 PM FINDINGS: Bones/joints: Alignment at the mortise appears normal. No acute fracture lucency. No tibiotalar joint effusion. Soft tissues: Soft tissues are unremarkable. XR/XR ankle LT 1V [id number] IMPRESSION: No acute osseous abnormality.
[2025-07-05 15:27] LABS: Glucose Urine UA Negative (Normal); Nitrate Urine Positive (Negative); Specific Gravity, Urine 1.018 (1.005-1.030)
[2025-07-05 15:31] LABS: Add Urine Microscopic? YES
[2025-07-06] VITALS (31 sets, daily range): BP systolic 132–194; BP diastolic 51–87; PULSE 59–93; RESP 16–20; TEMP 36.7–37.7; O2SAT 83–99
[2025-07-06] MEDS: HYDROmorphone 0.5 MG/0.5 ML INJ IVP ×4 (00:54→21:25)
[2025-07-06 03:21] LABS: Hematocrit 38.3 % (36-47); Hemoglobin 11.50 g/dL (11.27-16.99); Mean Corpuscular HGB Conc 30.0 g/dL (30-55); Mean Corpuscular Hemoglobin 30.2 pg (27-33); Mean Corpuscular Volume 100.5 fl (85-98); Nucleated Red Blood Cells % 0 %; Platelet Count 130 10^3/cmm (157-399); Red Blood Count 3.81 10^6/uL (3.85-5.65); White Blood Count 7.69 10^3/uL (3.29-11.43)
[2025-07-06 03:43] LABS: Alanine Aminotransferase 21 U/L (0-33); Albumin Level 3.0 g/dL (3.5-5.2); Alkaline Phosphatase 94 U/L (35-105); Anion Gap 10.8 (5-19); Aspartate Amino Transferase 17 U/L (0-32); Blood Urea Nitrogen 16 mg/dL (8-23); Calcium 9.6 mg/dL (8.5-10.5); Carbon Dioxide 30 mmol/L (22-29); Chloride 106 mmol/L (98-107); Creatinine Clr Calc Pharmacy 58.0102; Globulin 2.5 g/dL (1.3-4.6); Glucose 153 mg/dL (65-115); Osmolality Calculated 300 mOsm/kg (285-295); Potassium 3.8 mmol/L (3.5-5.1); Sodium 143 mmol/L (136-145); Total Protein 5.5 g/dL (6.6-8.7)
--- NOTE | 2025-07-06 10:38 | ANES.PREANE2 ---
Pre-Anesthetic Assessment Height/Weight: Height 1.65 m Weight 96.298 kg Temp Pulse Resp BP Pulse Ox O2 Del Method O2 Flow Rate 99.5 F 60 16 153/64 91 Nasal Cannula 2 07/06/25 07:53 07/06/25 07:53 07/06/25 07:53 07/06/25 07:53 07/06/25 07:53 07/06/25 07:53 07/06/25 07:25 Operation Date: 07/06/25 12:00 Proposed Procedures p Hemiarthroplasty Hip(Left) - Chente Robison MD Familial anesthetic complications: slow to wake Was Beta Mona taken within 24 hours: Yes Was Clonidine taken within 24 hours: N/A Last intake: Intake Last Liquid Date 07/05/25 Last Liquid Time 23:00 Last Solid Date 07/05/25 Last Solid Time 17:00 Social No alcohol and No tobacco Exam alert, oriented x 3, clear to auscultation bilaterally and regular rate & rhythm Airway Mallampati: Class II CV/HEM Atrial Fibrillation (pacemaker), Congestive Heart Failure and Myocardial Infarction Echo CONCLUSIONS Normal left ventricular size and systolic function, EF 56%. Moderate left ventricular hypertrophy. No regional wall motion abnormalities. Catheter/pacemaker wire in the right ventricular cavity. Normal right ventricular size and systolic function. Moderately increased left atrial volume 38.74 ml/m squared. Pacemaker wire in the right atrium/right ventricle There is no pericardial effusion. Compared to the study from 03/13/2025, there is significant improvement in the LV ejection fraction GI Gastroesophageal Reflux Disease Metabolic Thyroid Disease Neuropsych Cerebrovascular Accident, Dementia and Seizure Anesthetic Plan ASA status: 3 Anesthesia: General Risk of > 500 ml blood loss (7ml/kg in children): No Medications/Allergies Home Medications ?Medication ?Instructions ?Recorded ?Confirmed ?Last Taken ?Type aspirin 81 mg tablet,delayed 81 mg PO DAILY@0800 #60 tabs 03/14/24 07/05/25 07/04/25 Rx release (Adult Low Dose Aspirin) pantoprazole 40 mg tablet,delayed 40 mg PO QAM 03/14/24 07/05/25 07/04/25 History release aluminum-mag hydroxide-simethicone 10 ml PO Q4H PRN Indigestion 10/26/24 07/05/25 Unknown History 200 mg-200 mg-20 mg/5 mL oral susp docusate sodium 100 mg capsule 100 mg PO BID 10/26/24 07/05/25 07/04/25 History rivaroxaban 20 mg tablet (Xarelto) 20 mg PO DAILY 10/26/24 07/05/25 07/04/25 History levothyroxine 112 mcg tablet 112 mcg PO DAILY #30 tabs 10/27/24 07/05/25 07/04/25 Rx ondansetron HCl 4 mg tablet 4 mg PO Q4H PRN Nausea And Vomiting 11/24/24 07/05/25 01/26/25 History bisacodyl 10 mg rectal suppository 10 mg AR DAILY PRN Constipation 12/28/24 07/05/25 Unknown History (Dulcolax (bisacodyl)) magnesium hydroxide 400 mg/5 mL 30 ml PO DAILY PRN Constipation 12/28/24 07/05/25 Unknown History oral suspension (Milk of Magnesia) acetaminophen 325 mg tablet 325 mg PO Q4H PRN pain or fever 02/11/25 07/05/25 Unknown History amiodarone 400 mg tablet 400 mg PO DAILY 02/11/25 07/05/25 07/04/25 History atorvastatin 80 mg tablet 80 mg PO BEDTIME 02/11/25 07/05/25 07/03/25 History levetiracetam 750 mg tablet 750 mg PO Q12H 02/11/25 07/05/25 07/04/25 History metoprolol tartrate 100 mg tablet 100 mg PO BID 02/11/25 07/05/25 07/04/25 History trazodone 50 mg tablet 25 mg PO BEDTIME 03/13/25 07/05/25 07/03/25 History furosemide 20 mg tablet 20 mg PO DAILY@0800 #30 tabs 03/16/25 07/05/25 07/04/25 Rx isosorbide mononitrate 30 mg 30 mg PO DAILY #30 tabs 03/16/25 07/05/25 07/04/25 Rx tablet,extended release 24 hr magnesium oxide 400 mg (241.3 mg 400 mg PO DAILY #30 tabs 03/16/25 07/05/25 07/04/25 Rx magnesium) tablet nitroglycerin 0.4 mg sublingual 0.4 mg sublingual Q5M PRN Chest 03/16/25 07/05/25 Unknown Rx tablet Pain #20 tabs sacubitril 49 mg-valsartan 51 mg 1 tab PO BID #60 tabs 05/28/25 07/05/25 07/04/25 Rx tablet (Entresto) Lactobacillus rhamnosus GG 10 1 cap PO BID 07/05/25 07/05/25 07/04/25 History billion cell capsule (Culturelle) acetaminophen 500 mg tablet 500 mg PO BID PRN Pain 07/05/25 07/05/25 Unknown History nitrofurantoin 100 mg PO BID 07/05/25 07/05/25 07/04/25 History monohydrate/macrocrystals 100 mg capsule Allergies Allergy/AdvReac Type Severity Reaction Status Date / Time Penicillins Allergy Unknown Unknown Verified 05/28/25 09:55 tetanus and diphtheria Allergy Unknown Verified 05/28/25 09:55 toxoids morphine AdvReac Intermediate ADR-Confusi Verified 05/28/25 09:55 on penicillin G procaine AdvReac unknown Verified 05/28/25 09:55 Current Medications Generic Name Dose Route Start Last Admin Trade Name Ziaq PRN Reason Stop Dose Admin Amiodarone HCl 400 mg 07/06/25 09:00 07/06/25 09:57 Amiodarone 200 Mg Tablet PO 400 mg DAILY ART Administration Aspirin 81 mg 07/06/25 08:00 07/06/25 09:52 Aspirin 81 Mg Ec Tablet PO Not Given DAILY@0800 [facility] Atorvastatin Calcium 80 mg 07/05/25 21:00 07/05/25 20:49 Atorvastatin 40 Mg Tablet PO 80 mg BEDTIME ART Administration Docusate Sodium 100 mg 07/05/25 18:00 07/06/25 09:57 Docusate Sodium 100 Mg Capsule PO 100 mg BID ART Administration Hydromorphone HCl 0.5 mg 07/04/25 23:21 07/06/25 05:24 Hydromorphone 0.5 Mg/0.5 Ml Inj IVP 0.5 mg Q4H PRN Administration MODERATE AGITATION Sodium Chloride 1,000 mls @ 75 mls/hr 07/04/25 23:58 07/06/25 04:51 Sodium Chloride 0.9% IV 75 mls/hr .[id number] ART Administration Insulin Human Lispro 0 unit 07/05/25 18:00 07/06/25 06:56 Insulin Lispro 100 Unit/1 Ml SUBCUT Not Given TIDWM [facility] Protocol Isosorbide Mononitrate 30 mg 07/06/25 09:00 07/06/25 09:57 Isosorbide Mononitrate Er 30 Mg Tablet PO 30 mg DAILY ART Administration Levetiracetam 750 mg 07/05/25 13:15 07/06/25 00:54 Levetiracetam 500 Mg Tablet PO 750 mg Q12H ART Administration Levothyroxine Sodium 112 mcg 07/06/25 09:00 07/06/25 09:57 Levothyroxine 112 Mcg Tablet PO 112 mcg DAILY ART Administration Magnesium Oxide 400 mg 07/06/25 09:00 07/06/25 09:57 Magnesium Oxide 400 Mg Tablet PO 400 mg DAILY ART Administration Meropenem 500 mg 07/06/25 08:15 07/06/25 08:26 Meropenem 500 Mg Sdv IVP 500 mg Q8H ART Administration Protocol Metoprolol Tartrate 100 mg 07/05/25 13:15 07/06/25 00:54 Metoprolol Tartrate 50 Mg Tablet PO 100 mg Q12H ART Administration Pantoprazole Sodium 40 mg 07/05/25 09:00 07/06/25 09:[address] 40 Mg Tablet PO 40 mg DAILY ART Administration Pantoprazole Sodium 40 mg 07/06/25 06:00 07/06/25 06:[address] 40 Mg Tablet PO Not Given QAM ART Trazodone HCl 25 mg 07/05/25 21:00 07/05/25 20:48 Trazodone 50 Mg Tablet PO 25 mg BEDTIME ART Administration [facility] Anesthesia Medical History (Updated 07/05/25 @ 13:14 by Chente Robison MD) 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 Paroxysmal A-fib Cerebrovascular accident (CVA), unspecified mechanism UTI (urinary tract infection) Hypotension Aphasia Multiple falls Altered mental status Acute cystitis Hypersomnia TIA (transient ischemic attack) Recurrent UTI Medication noncompliance due to cognitive impairment Need for assistance with personal care Need for assistance due to reduced mobility Mild cognitive impairment with memory loss Oxygen dependent ANGIE (acute kidney injury) Hypertension Transient cerebral ischemia Chronic migraine without aura, intractable, with status migrainosus GERD (gastroesophageal reflux disease) 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) Dementia Obstructive sleep apnea Sleep apnea Type 2 diabetes mellitus Tachy-martin syndrome Non-insulin dependent diabetes mellitus -A1c (12/2019): 8.3 -Accucheks, ISS, hypoglycemia precautions -consistent carb diet as tolerated -takes metformin at home, can resume on d/c Drug-induced bradycardia Digoxin was discontinued along beta-mona Atrial flutter Diastolic heart failure Generalized epilepsy CHF (congestive heart failure) Atrial fibrillation Severe obstructive sleep apnea Hypothyroidism Depressed Atrial dysrhythmia Diabetes 1.5, managed as type 2 Sleep apnea in adult Stroke due to embolism of left middle cerebral artery -prior hx of L MCA CVA in 05/2019; did not receive tPA -has been f/u with Dr. Randall -attributed to atrial fibrillation -on ASA, statin, AC with Eliquis -has residual cognitive impairment Seizure Heart failure Surgical History Status post cardiac pacemaker procedure No pertinent past surgical history Family History Sister Diabetes Father Heart disease Mother Heart disease Social History Smoking and tobacco/nicotine status: former use of tobacco/nicotine Quit status (tobacco/nicotine): has quit using Former quit date comment: 30 years ago after 1 pack/day for 10 years Alcohol intake: never Substance/Drug Use: never Additional social history: She wants DNR status as discussed today with patient and sister Brooek on 03/13/2025 Data Anesthesia 07/06/25 02:48 07/06/25 02:48 Short CBC 07/04/25 07/05/25 07/06/25 Range/Units 21:52 03:09 02:48 WBC 6.84 10.47 7.69 (3.29-11.43) 10^3/uL Hgb 12.30 12.40 11.50 (11.27-16.99) g/dL Hct 38.9 39.3 38.3 (36-47) % MCV 96.3 96.8 100.5 H (85-98) fl Plt Count 146 L 141 L 130 L (157-399) 10^3/cmm Neut % (Auto) 73.0 79.6 77.2 % Neut # (Auto) 4.99 8.34 H 5.94 (1.8-7.7) 10^3/uL BMP 07/04/25 07/05/25 07/06/25 21:52 03:09 02:48 Sodium 145 145 143 Potassium 3.7 3.7 3.8 Chloride 107 107 106 Carbon Dioxide 31 H 31 H 30 H BUN 23 21 16 Creatinine 1.2 H 1.0 H 0.9 Glucose 166 H 202 H 153 H Calcium 9.7 9.6 9.6 Cardiac Enzymes 07/04/25 Range/Units 21:52 NT-Pro-B Natriuret Pep 1001 H (0-450) pg/mL Liver Function 07/04/25 07/05/25 07/06/25 Range/Units 21:52 03:09 02:48 Total Bilirubin 0.2 0.3 0.4 (0.15-1.2) mg/dL AST 22 22 17 (0-32) U/L ALT 25 24 21 (0-33) U/L Alkaline Phosphatase 111 H 107 H 94 (35-105) U/L Albumin 3.5 3.5 3.0 L (3.5-5.2) g/dL Urine 07/05/25 Range/Units 14:50 Urine Color Yellow (Yellow) Urine Appearance Cloudy A (CLEAR) Urine pH 5.5 (5-7) Ur Specific Kerrick 1.018 (1.005-1.030) Urine Protein Negative (Negative) Urine Glucose (UA) Negative (Normal) Urine Ketones Negative (Negative) Urine Nitrate Positive A (Negative) Urine Bilirubin Negative (Negative) Ur Leukocyte Esterase 1+ A (Negative) Urine RBC >100 H (0-2) /hpf Urine WBC 6-10 (0-5) /hpf Coags 07/04/25 21:52 PT 17.50 H INR 1.34 H Cardiac Studies: Echocardiogram 03/13/25 Echocardiogram Limited Views 06/26/25 Transesophageal Echocardiogram 01/03/25 Sestamibi Stress Test (Cardiology) 03/15/25
[2025-07-06] MEDS: fentaNYL 50 mcg/mL INJ 2mL IVP (11:33)
--- NOTE | 2025-07-06 12:31 | PC.SOCIAL ---
IMM Update Updated pt & friend Adeline on IMM. No questions voiced. Provided pt a copy. Initialed, dated, & timed a copy & placed in chart.
[2025-07-06] MEDS: tranexamic acid 1,000 mg/10mL SDV 1000 MG IV (13:12)
--- NOTE | 2025-07-06 13:54 | XRR_ITS ---
PROCEDURE INFORMATION: Exam: XR Left Hip Exam date and time: 07/06/2025 3:03 PM Age: 79 years old Clinical indication: Hip pain; Left hip; Prior surgery; Surgery date: <1 month; Surgery type: Lt hip; Additional info: Endoprosthesis left hip TECHNIQUE: Imaging protocol: Radiologic exam of the left hip. Views: 2 or 3 views hip with pelvis when performed. COMPARISON: CT hip LT wo con* [id number] 07/04/2025 9:31 PM FINDINGS: Bones/joints: Interval left total hip arthroplasty. Arthroplasty components are in expected location and alignment. No periprosthetic fracture. Soft tissues: Expected postoperative subcutaneous and intra-articular gas. Skin peggy overlying the left hip.
--- NOTE | 2025-07-06 14:00 | PC.NURSE ---
Pt arrives to ICU from Surgery. Simple maske at 6lpm noted. Patent IV right AC. Garcia cath patent and draining. Pt stirring and moving but not alert at this time. Dressing to left hip C,D,I and abductor pillow in place.
--- NOTE | 2025-07-06 14:10 | ANE.PACU2 ---
Inpatient post-anesthesia follow up: Airway intact: Yes Vital signs: Temperature 98.9 F Pulse Rate 60 Respiratory Rate 16 Blood Pressure 144/78 Pulse Oximetry 97 Oxygen Delivery Me thod Nasal Cannula Oxygen Flow Rate 3 Fraction of Inspir ed Oxygen Hydration adequate: Yes Nausea and vomiting: No Pain level: 1 Mental status: Baseline
--- NOTE | 2025-07-06 14:18 | PM.OP ---
Operative Report Date of procedure: July 06, 2025 Surgeon: Chente Robison MD Procedure: Preoperative diagnosis: Fracture left Postoperative diagnosis: Same Procedure: Endoprosthetic replacement left hip Surgeon: Chente Robison MD Anesthesia: General EBL: 50 cc Indications: Gianluca is a 79-year-old white female resides in a care home in the local area. She had a fall 2 days ago injuring her left hip. She was unable to bear weight. She was sent to the emergency room here at [facility] and x-rays there demonstrated a femoral neck fracture. This is minimally displaced and had to be identified by CT scan. Patient was then admitted through the hospitalist service. She was on Xarelto so therefore 48 hours was necessary to wait before taking her surgery to try and avoid excessive bleeding. After orthopedic evaluation reviewed the x-rays of felt patient would benefit from endoprosthetic replacement of the hip. All risk benefits treatment alternatives were discussed with patient and her family and they are agreeable to this at this time. Procedure: After obtaining consent patient taken to the operating room placed up table supine position general anesthetic administered. Once good anesthesia achieved patient was positioned in a lateral decubitus position with left hip up. She was held on the table secured with a pegboard and appropriately padded. Left hip and leg were prepped and draped usual fashion. After surgical timeout hip was flexed to 90 degrees and a minimally invasive incision was made over the greater trochanter. Sharp dissection to get him down to subcutaneous tissue electrocautery used for hemostasis. Sharp dissection today was taken down to the bursa and the fascia was divided along the course of the skin incision. Leg was slowly internally rotated soft tissue raised out the posterior aspect of greater trochanter all the way down to the femoral neck and head. Soft tissue removed from these areas. At this point using an osteotome the femoral neck portion was cut from the femoral head and removed piecemeal. Once finally down within we are able to remove the femoral head with a bone scoop. This was sized to size 45 trial head. This is placed down into the acetabulum and found to have good fit and fill. Tissue was then turned towards the proximal femur. It was noted the fracture went all the way down to the superior portion of the lesser trochanter but no further. Hand reaming of the intermittent canal was then done. Broaching of the canal was done up to a size 3 broach going by 1 mm after minutes. At this point a permanent size 3 femoral component from [place] was placed with appropriate anteversion and impacted into the proximal femur. Trial head and standard neck were placed on this and the hip was reduced but range of motion found to be stable however it was short and therefore +4 neck was used for permanent placement. Trial components were removed and wound was washed closed in a sterile irrigation. Components are dried size 45 femoral head with a +4 neck was placed on the Donovan taper of the femoral component and impacted. Hip was reduced put through range of motion found to be stable with appropriate leg length. Need was placed up on a knee bump to abduct legs. With slight internal rotation capsule was exposed and this was repaired with #1 Vicryl [id number] sutures. Deep fascia reapproximated 0 Vicryl [id number] sutures. Subcutaneous tissue reapproximated 0 Vicryl interrupted sutures. Skin was closed with skin peggy. Wounds are clean and dry dressed Xeroform gauze and sterile on adhesive dressing. Patient was placed in abduction pillow and transported by her bed back to the ICU at this time.
--- NOTE | 2025-07-06 15:05 | XRR_ITS ---
PROCEDURE INFORMATION: Exam: XR Chest Exam date and time: 07/06/2025 3:08 PM Age: 79 years old Clinical indication: Device placement; Ett placement (vent status); Unspecified; Additional info: Post- op, post extubation TECHNIQUE: Imaging protocol: Radiologic exam of the chest. Views: 1 view. COMPARISON: CR (CHEST, ) 07/04/2025 8:56 PM FINDINGS: Tubes, catheters and devices: Left pectoral pacemaker with unchanged position of the leads. Lungs: Multifocal streaky opacities. Pleural spaces: Unremarkable. No pleural effusion. No pneumothorax. Heart/Mediastinum: Unremarkable. No cardiomegaly. Bones/joints: Unremarkable. XR/XR chest 1V portable [id number] IMPRESSION: Multifocal streaky opacities, differential includes atelectasis, pulmonary edema, infection or aspiration.
--- NOTE | 2025-07-06 15:19 | XRR_ITS ---
PROCEDURE INFORMATION: Exam: XR Left Hip Exam date and time: 07/06/2025 3:03 PM Age: 79 years old Clinical indication: Hip pain; Left hip; Prior surgery; Surgery date: <1 month; Surgery type: Lt hip; Additional info: Endoprosthesis left hip TECHNIQUE: Imaging protocol: Radiologic exam of the left hip. Views: 2 or 3 views hip with pelvis when performed. COMPARISON: CT hip LT wo con* [id number] 07/04/2025 9:31 PM FINDINGS: Bones/joints: Interval left total hip arthroplasty. Arthroplasty components are in expected location and alignment. No periprosthetic fracture. Soft tissues: Expected postoperative subcutaneous and intra-articular gas. Skin peggy overlying the left hip. XR/XR pelvis 1-2V* [id number] IMPRESSION: Uncomplicated postoperative appearance of left total hip arthroplasty.
--- NOTE | 2025-07-06 15:58 | P.PN_ITS ---
Subjective 2 Subjective: Patient was seen this morning, denies any fevers, no chills, no cough, discussed UTI, start meropenem, given history of ESBL E. coli Patient was reexamined in the ICU, due to acute hypoxic respiratory failure postoperatively on 6 L, she is resting calmly, no acute respiratory distress, no nausea, no vomiting, no chest pain, she is following commands, she has received Lasix, will monitor in ICU closely Vitals/I&O/Wt Last Vital Signs Temp 98.9 F 07/06/25 14:05 Pulse 60 07/06/25 15:45 Resp 17 07/06/25 15:45 BP 165/61 07/06/25 15:45 Pulse Ox 94 07/06/25 15:45 O2 Del Method Nasal Cannula 07/06/25 15:30 O2 Flow Rate 4 07/06/25 15:45 07/06/25 07/06/25 07/06/25 06:59 14:59 22:59 Intake Total 1000 / 2000 50 / 50 Output Total 250 / 1175 Balance 750 / 825 50 / 50 Weight last 48 hrs Weight 96.298 kg Weight 89.993 kg Weight 90.129 kg Weight 99.79 kg Physical Exam 2 Const: COMMON NORMALS: no acute distress and patient oriented x3 Resp: COMMON NORMALS: normal respiratory effort, No retractions, No use of accessory muscles and clear to auscultation bilaterally AUSCULTATION: clear to auscultation bilaterally Cardio: COMMON NORMALS: regular rate, regular rhythm, S1 normal heart sound present and S2 normal heart sound present RATE: regular rate RHYTHM: r egular rhythm HEART SOUNDS: S1 normal heart sound present and S2 normal heart sound present GI: COMMON NORMALS: Normal to inspection, nondistended, normoactive bowel sounds present and non-tender Extremity: COMMON NORMALS: no calf tenderness and no pedal edema Neuro: COMMON NORMALS: patient oriented x3 Psych: COMMON NORMALS: mental status grossly normal Data 07/06/25 02:48 07/06/25 02:48 Micro: Microbiology 07/05/25 14:50 Urine Culture - Preliminary Urine,Clean Catch Gram Negative Rods A&P Assessment and plan 1. Closed fracture of left hip: 2. Acute on chronic combined systolic (congestive) and diastolic (congestive) heart failure: 3. History of CVA in adulthood: 4. Chest pain due to myocardial ischemia: 5. Multi-infarct dementia: 6. Left acute arterial ischemic stroke, MCA (middle cerebral artery): 7. Aphasia as late effect of stroke: 8. Acute hypoxic respiratory failure: Plan: #1 Status post mechanical fall with left hip fracture CT left hip CT/CT hip LT wo con* [id number] IMPRESSION: Acute mildly displaced basicervical fracture of the left femoral neck. - Will resume Xarelto - Orthopedics consulted, status post surgical invention - Continue IV Dilaudid - IV fluids, discontinued - Regular diet Acute hypoxic respiratory failure secondary to fluid overload -IV Lasix - Chest x-ray Urinary tract infection - History of ESBL E. coli UTI - Start meropenem #2 Dehydration #3 History of multi infarct dementia, left ischemic stroke MCA,expressive aphasia from CVA -Monitor Hypothyroidism, continue levothyroxine Hyperlipidemia continue with thyroxine History of seizures continue Keppra History of atrial fibrillation continue amiodarone, metoprolol, continue aspirin, statin, - Xarelto Type 2 diabetes mellitus, low-dose sliding scale - PDMP PDMP Reviewed: Not Reviewed Attestations 2 Medical Necessity Statement*: Patient requires hospitalization for left hip fracture, acute hypoxic respiratory failure, UTI Diagnoses Closed fracture of left hip S72.002A Acute on chronic combined systolic (congestive) and diastolic (congestive) heart failure I50.43 History of CVA in adulthood Z86.73 Chest pain due to myocardial ischemia I25.9 Multi-infarct dementia F01.50 Left acute arterial ischemic stroke, MCA (middle cerebral artery) I63.512 Aphasia as late effect of stroke I69.320 Acute hypoxic respiratory failure J96.01
[2025-07-06 16:37] LABS: NT Pro B Type Natriuretic Pept 2209 pg/mL (0-450)
--- NOTE | 2025-07-06 17:00 | PC.NURSE ---
Pt pointing at her throat, putting her finger in her throat so far she gagged, indicating there was some thing there bothering her. Inspected the back of her mouth and seen a mass on the left side of her throat, it was bleeding some. Notified Dr Nunes of mass, Pt maintaining Called Dr Link and asked if it had been noticed prior to intubation, Dr Carballo stated she was not the one that intubated pt. Pt continued to poke finger in her mouth. Pt instructed to not scratch at her throat. She is getting more agitated, having difficultly communicating. Notified Dr Nunes of escalation. Orders for Magic mouthwash received.
[2025-07-06] MEDS: mupirocin oint 22 gm 1 APPLIC NASAL (17:18)
[2025-07-06] MEDS: sennosides-docusate Tablet 2 TAB PO (17:20)
--- NOTE | 2025-07-06 17:30 | CTR_ITS ---
PROCEDURE INFORMATION: Exam: CT Neck With Contrast Exam date and time: 07/06/2025 5:49 PM Age: 79 years old Clinical indication: Left tonsillar erythema bleeding TECHNIQUE: Imaging protocol: Computed tomography of the neck with contrast. Radiation optimization: All CT scans at this facility use at least one of these dose optimization techniques: automated exposure control; mA and/or kV adjustment per patient size (includes targeted exams where dose is matched to clinical indication); or iterative reconstruction. Contrast material: OMNI 350; Contrast volume: 100 ml; Contrast route: INTRAVENOUS (IV); COMPARISON: CT angio headneck* [id number] 10/26/2024 8:24 AM RADIATION DOSE METRICS: Total DLP (mGy-cm): 257.43 FINDINGS: Salivary glands: Normal. Glands are normal in size. Pharynx: There is enlargement of the left palatine tonsil. There is slight heterogeneous enhancement. No peritonsillar abscess or significant surrounding inflammatory stranding. No retropharyngeal collection. Larynx: Unremarkable. Epiglottis is normal. Thyroid: 1.5 cm left thyroid nodule. There are additional smaller thyroid nodules. Trachea: Visualized trachea is unremarkable. Lungs: Lung evaluation is suboptimal due to motion, streak artifact from contrast bolus and pacemaker and imaging in partial expiration. Within these limitations, there is apparent multifocal ground-glass opacities. Lymph nodes: Unremarkable. No lymphadenopathy. Bones/joints: Unremarkable. No acute fracture. Soft tissues: Unremarkable. No significant soft tissue swelling. CT/CT neck w con* [id number] IMPRESSION: 1. Asymmetric enlargement of the left palatine tonsil with heterogenous enhancement and no abscess or adjacent inflammatory changes. Findings are concerning for underlying neoplasm. Recommend direct visualization/biopsy as clinically indicated. 2. 1.5 cm left thyroid nodule. Recommend further evaluation with dedicated thyroid ultrasound if not previously characterized. 3. Lung evaluation is suboptimal due to motion, streak artifact from contrast bolus and pacemaker and imaging in partial expiration. Within these limitations, there is apparent multifocal ground-glass opacities. If there is clinical concern for inflammatory or infectious lung disease dedicated chest imaging could be considered. COMMENTS: Consistent with the [employer]'s Incidental Findings Committee white paper (J Am Rosana Radiol 2015): In patients aged 35 years and older with an incidental thyroid nodule equal to or greater than 1.[address], MRI or extrathyroidal US, further evaluation with dedicated thyroid US is recommended for patients with normal life expectancy and without comorbidities. For smaller nodules without suspicious features, no further evaluation or follow up is recommended.
--- NOTE | 2025-07-06 17:44 | P.PNCC_ITS ---
Critical Care Event Note The high probability of a clinically significant, sudden or life threatening deterioration of the patient's [] system(s) required my full and direct attention, intervention and personal management. The critical care time is as shown. This time is in addition to time spent performing any reported procedures but includes the following: [x] Data and vital sign review and interpretation [x] Patient assessment, examination and intervention [x] Documentation [x] Medication orders and management Critical Care Time Code activated: No Critical Care Time (min): 30 Additional information about critical care time: - Nursing staff report that Chantel is planing of a globus sensation which she is taking her finger putting into the back of her throat complaining of a mass - She is hemodynamically stable, on nasal cannula, no shortness of breath no lip swelling, no tongue swelling - Upon evaluation, I evaluated her posterior pharynx multiple times - Given her productive aphasia it is difficult for her to follow commands and for airway evaluation - But I was able to evaluate her posterior pharynx - Uvula is seen, no significant uvular enlargement, no angioedema of the uvula - No lip swelling - No tongue swelling - No swelling at the base of the tongue - What I can see is is that there is a fleshy mass almost appearing like a papilloma associate with the left palate, roughly 1 x 1 cm, associated with the left palate, with erythema, swelling, and it looks like there is superficial bleeding, and dried blood - It is does contact the uvula but no uvular deviation - I can easily see the posterior pharynx, she she has a good airway -Good air entry bilaterally, good breath sounds bilaterally - It is unilateral - Possibilities include that this mass was present before her surgical procedure - Potentially during intubation or extubation process there was trauma to this mass - Resulting in edema/swelling/erythema - Resulting in her respiratory failure after her surgery - This certainly could be a peritonsillar abscess, it is hard to define but it more looks like a papilloma like mass - I cannot see any active drainage of pus - What I propose is monitor her airway closely - She looks comfortable, she is on nasal cannula, no respiratory compromise - Will keep her on clear liquids keep her including liquids to help with the inflammation - Magic mouthwash - Chloraseptic spray - IV Decadron - Will do a CT of the neck with IV contrast - Monitor her status closely - Avoid irritation - I did briefly discuss with ENT although Dr. Roberto is not on-call, he was cou rteous enough to answer my call, recommended a CT of the neck with IV contrast, - Patient is on IV antibiotics - Will monitor closely - Spoke to patient about this in detail, she agrees to proceed - Hold Eliud for now Coding Level of Care Code Acute Code for Chg Fwd
[2025-07-06] MEDS: iohexol 350 mg/mL 500 mL Btl (per mL) IV (17:58)
[2025-07-06] MEDS: phenol oral Spray 177 mL 3 SPRAY MUCOUS MEM (19:09)
--- NOTE | 2025-07-06 19:38 | PC.NURSE ---
Shift summary: Pt resting in bed. Sinus rhythm noted on monitor. VSS. She is utilizing 3lpm/NC at this time. Her left hip has ice pack as ordered. Dressing clean, dry and intact. NO reports of hip discomfort . Pedal pulses present bilat. Pt is irritated by mass in her throat. Indicating she is having a hard time swallowing. She was able to swallow pills in pudding one at a time. Dr Nunes ordered clear liquids, cold only. To=keep the Head of her bed elevated. Steriods IVP and Phenoseptic throat spray started. She receveid one dose of ketorlac. She also had one dose of hydromorphone this evening more for the agitation. Stat CT completed. 1000ml of clear yellow urine output noted. Her brothers were in to visit for a few minutes this eveing.
[2025-07-06] MEDS: morphine 4 mg/mL SDV 1 mL 2 MG IVP (20:16)
[2025-07-06] MEDS: FUROsemide 10 mg/mL SDV 4mL 40 MG IVP (20:16)
[2025-07-07] VITALS (22 sets, daily range): BP systolic 127–186; BP diastolic 62–99; PULSE 60–77; RESP 13–23; TEMP 36.4–37; O2SAT 93–99
[2025-07-07] MEDS: morphine 4 mg/mL SDV 1 mL 2 MG IVP ×2 (00:09→03:28)
[2025-07-07] MEDS: phenol oral Spray 177 mL 3 SPRAY MUCOUS MEM ×5 (01:24→20:54)
[2025-07-07] MEDS: HYDROmorphone 0.5 MG/0.5 ML INJ IVP ×4 (01:24→20:53)
[2025-07-07 04:28] LABS: Hematocrit 35.1 % (36-47); Hemoglobin 11.00 g/dL (11.27-16.99); Mean Corpuscular HGB Conc 31.3 g/dL (30-55); Mean Corpuscular Hemoglobin 30.9 pg (27-33); Mean Corpuscular Volume 98.6 fl (85-98); Nucleated Red Blood Cells % 0 %; Platelet Count 130 10^3/cmm (157-399); Red Blood Count 3.56 10^6/uL (3.85-5.65); White Blood Count 9.55 10^3/uL (3.29-11.43)
[2025-07-07 04:50] LABS: Alanine Aminotransferase 27 U/L (0-33); Albumin Level 3.3 g/dL (3.5-5.2); Alkaline Phosphatase 93 U/L (35-105); Aspartate Amino Transferase 33 U/L (0-32); Blood Urea Nitrogen 18 mg/dL (8-23); Calcium 9.8 mg/dL (8.5-10.5); Carbon Dioxide 28 mmol/L (22-29); Chloride 102 mmol/L (98-107); Globulin 2.3 g/dL (1.3-4.6); Glucose 221 mg/dL (65-115); Osmolality Calculated 305 mOsm/kg (285-295); Sodium 143 mmol/L (136-145); Total Protein 5.6 g/dL (6.6-8.7)
[2025-07-07 04:57] LABS: NT Pro B Type Natriuretic Pept 3924 pg/mL (0-450)
[2025-07-07 05:33] LABS: Creatinine Clr Calc Pharmacy 54.0849
[2025-07-07 05:34] LABS: Anion Gap 17.0 (5-19); Potassium 4.0 mmol/L (3.5-5.1)
[2025-07-07] MEDS: HYDROcodone-acetaminophen 5-325 mg Tablet 1 TAB PO (08:06)
[2025-07-07] MEDS: multivitamin therapeutic Tablet 1 TAB PO (08:07)
[2025-07-07] MEDS: mupirocin oint 22 gm 1 APPLIC NASAL ×2 (08:12→17:41)
[2025-07-07] MEDS: sennosides-docusate Tablet 2 TAB PO ×2 (08:18→17:36)
[2025-07-07] MEDS: chlorhexidine gluconate 0.12% Btl 473 mL 30 ML MUCOUS MEM ×4 (08:18→20:54)
[2025-07-07] MEDS: FUROsemide 10 mg/mL SDV 4mL 40 MG IVP (09:30)
--- NOTE | 2025-07-07 14:09 | P.PN_ITS ---
Subjective 2 Subjective: Patient was seen this morning, currently alert oriented x 3, following all commands, denies any fevers, no chills, no cough, added detailed discussion with her about her neck CT scan findings, asymptomatic enlargement of left palate teen tonsil, highly suspicious for malignancy, clinical findings last night, I have looked at her throat again this morning, it seems like this mass welling has improved, there is superficial hematoma associate with the mass, as I am worried about a potentially bleeding, I will hold her Xarelto for today, discussed risk and benefits of holding Xarelto, she voiced understanding, all questions answered, agreed to proceed, discussed continued monitoring, discussed her chest x-ray findings of multifocal pneumonia potentially aspiration, continue IV antibiotics, continue IV diuresis will continue inpatient monitoring, she will need to follow-up with ENT for her mass Vitals/I&O/Wt Last Vital Signs Temp 98.0 F 07/07/25 12:00 Pulse 64 07/07/25 14:00 Resp 15 07/07/25 14:00 BP 182/68 07/07/25 14:00 Pulse Ox 99 07/07/25 14:00 O2 Del Method Nasal Cannula 07/07/25 14:00 O2 Flow Rate 2 07/07/25 14:00 07/06/25 07/07/25 07/07/25 22:59 06:59 14:59 Intake Total 3100 / 3950 50 / 4000 1000 / 1000 Output Total 1000 / 1920 800 / 2720 Balance 2099 / 2029 -750 / 1280 1000 / 1000 Weight last 48 hrs Weight 90.265 kg Weight 96.298 kg Physical Exam 2 Const: COMMON NORMALS: no acute distress and patient oriented x3 Neck/C-Spine: OTHER: Oropharynx examination, uvula intact, not kissing, left palatine tonsil associated with mass, measuring 1 x 1 cm, swelling has significantly improved in this mass, she does have swelling, erythema of this mass, and some superficial hematoma of this mass, but improved compared to yesterday Resp: COMMON NORMALS: normal respiratory effort, No retractions and No use of accessory muscles AUSCULTATION: crackles and wheezes Cardio: COMMON NORMALS: regular rate, regular rhythm, S1 normal heart sound present and S2 normal heart sound present RATE: regular rate RHYTHM: r egular rhythm HEART SOUNDS: S1 normal heart sound present and S2 normal heart sound present GI: COMMON NORMALS: Normal to inspection, nondistended, normoactive bowel sounds present, non-tender and No hepatosplenomegaly present PALPATION: Yes No hepatosplenomegaly present Extremity: COMMON NORMALS: no pedal edema Neuro: COMMON NORMALS: patient oriented x3 Psych: COMMON NORMALS: mental status grossly normal Data 07/07/25 03:55 07/07/25 03:55 Micro: Microbiology 07/05/25 14:50 Urine Culture - Final Urine,Clean Catch Escherichia coli esbl A&P Assessment and plan 1. Closed fracture of left hip: 2. Acute on chronic combined systolic (congestive) and diastolic (congestive) heart failure: 3. History of CVA in adulthood: 4. Chest pain due to myocardial ischemia: 5. Multi-infarct dementia: 6. Left acute arterial ischemic stroke, MCA (middle cerebral artery): 7. Aphasia as late effect of stroke: 8. Acute hypoxic respiratory failure: 9. Aspiration pneumonia: 10. Fluid overload: 11. Infection due to ESBL-producing Escherichia coli: 12. Squamous cell carcinoma of left tonsil: Plan: #1 Status post mechanical fall with left hip fracture CT left hip CT/CT hip LT wo con* [id number] IMPRESSION: Acute mildly displaced basicervical fracture of the left femoral neck. - Will hold Xarelto due to below - Orthopedics consulted, status post surgical invention - Continue IV Dilaudid - IV fluids, discontinued - Regular diet Acute hypoxic respiratory failure secondary to fluid overload, aspiration pneumonia -Monitor respiratory status closely currently on 4 L -IV Lasix - Continue meropenem Urinary tract infection, with ESBL species - History of ESBL E. coli UTI - Continue IV meropenem Left palate teen/tonsillar mass - With edema, hemorrhage, swelling -Possible trauma associated with intubation/extubation CT/CT neck w con* [id number] IMPRESSION: 1. Asymmetric enlargement of the left palatine tonsil with heterogenous enhancement and no abscess or adjacent inflammatory changes. Findings are concerning for underlying neoplasm. Recommend direct visualization/biopsy as clinically indicated. Plan - Continue clear liquids - Chloraseptic - Continue Decadron - Monitor clinically - Hold Xarelto Left thyroid nodule 2. 1.5 cm left thyroid nodule. Recommend further evaluation with dedicated thyroid ultrasound if not previously characterized. - Follow-up with ENT #2 Dehydration, resolved #3 History of multi infarct dementia, left ischemic stroke MCA,expressive aphasia from CVA -Monitor Hypothyroidism, continue levothyroxine Hyperlipidemia continue with thyroxine History of seizures continue Keppra History of atrial fibrillation continue amiodarone, metoprolol, continue aspirin, statin, - Xarelto on hold Type 2 diabetes mellitus, low-dose sliding scale Full code SCDs for DVT prophylaxis - PDMP PDMP Reviewed: Not Reviewed Attestations 2 Medical Necessity Statement*: Patient requires hospitalization for ESBL E. coli UTI, requiring IV antibiotics, left Palatino mass with swelling, acute hypoxic respiratory failure aspiration ammonia, fluid overload Diagnoses Closed fracture of left hip S72.002A Acute on chronic combined systolic (congestive) and diastolic (congestive) heart failure I50.43 History of CVA in adulthood Z86.73 Chest pain due to myocardial ischemia I25.9 Multi-infarct dementia F01.50 Left acute arterial ischemic stroke, MCA (middle cerebral artery) I63.512 Aphasia as late effect of stroke I69.320 Acute hypoxic respiratory failure J96.01 Aspiration pneumonia J69.0 Fluid overload E87.70 Infection due to ESBL-producing Escherichia coli A49.8; Z16.12 Squamous cell carcinoma of left tonsil C09.9
--- NOTE | 2025-07-07 18:41 | PC.NURSE ---
Swallowing improved, patient able to take pills whole with no difficulty. swelling to left throat appears to be decreased.
[2025-07-08] VITALS (28 sets, daily range): BP systolic 116–158; BP diastolic 50–89; PULSE 60–68; RESP 14–26; TEMP 36.3–36.7; O2SAT 91–97
[2025-07-08] MEDS: phenol oral Spray 177 mL 3 SPRAY MUCOUS MEM ×4 (02:19→21:02)
[2025-07-08] MEDS: HYDROmorphone 0.5 MG/0.5 ML INJ IVP ×2 (02:29→08:07)
[2025-07-08 03:55] LABS: Hematocrit 34.0 % (36-47); Hemoglobin 10.90 g/dL (11.27-16.99); Mean Corpuscular HGB Conc 32.1 g/dL (30-55); Mean Corpuscular Hemoglobin 31.1 pg (27-33); Mean Corpuscular Volume 97.1 fl (85-98); Nucleated Red Blood Cells % 0 %; Platelet Count 153 10^3/cmm (157-399); Red Blood Count 3.50 10^6/uL (3.85-5.65); White Blood Count 11.48 10^3/uL (3.29-11.43)
[2025-07-08 04:18] LABS: Alanine Aminotransferase 35 U/L (0-33); Albumin Level 3.0 g/dL (3.5-5.2); Alkaline Phosphatase 86 U/L (35-105); Anion Gap 11.1 (5-19); Aspartate Amino Transferase 33 U/L (0-32); Blood Urea Nitrogen 19 mg/dL (8-23); Calcium 10.3 mg/dL (8.5-10.5); Carbon Dioxide 32 mmol/L (22-29); Chloride 101 mmol/L (98-107); Creatinine Clr Calc Pharmacy 65.3626; Globulin 2.8 g/dL (1.3-4.6); Glucose 151 mg/dL (65-115); NT Pro B Type Natriuretic Pept 1476 pg/mL (0-450); Osmolality Calculated 295 mOsm/kg (285-295); Potassium 4.1 mmol/L (3.5-5.1); Sodium 140 mmol/L (136-145); Total Protein 5.8 g/dL (6.6-8.7)
[2025-07-08] MEDS: sennosides-docusate Tablet 2 TAB PO ×2 (08:13→17:13)
[2025-07-08] MEDS: multivitamin therapeutic Tablet 1 TAB PO (08:13)
[2025-07-08] MEDS: mupirocin oint 22 gm 1 APPLIC NASAL (08:14)
[2025-07-08] MEDS: chlorhexidine gluconate 0.12% Btl 473 mL 30 ML MUCOUS MEM ×2 (10:25→20:24)
--- NOTE | 2025-07-08 10:33 | P.PN_ITS ---
Subjective 2 Subjective: Patient is now postop day 2 from endoprosthetic replacement of the left hip. She is awake and alert and responding to my verbal commands and statements. She has no complaints today other than some aching pain over her hip. She indicates that she is only did bed to chair transfers. Vitals/I&O/Wt Last Vital Signs Temp 97.6 F 07/08/25 08:00 Pulse 60 07/08/25 10:00 Resp 16 07/08/25 08:05 BP 127/55 07/08/25 10:00 Pulse Ox 93 07/08/25 10:00 O2 Del Method Nasal Cannula 07/08/25 10:00 O2 Flow Rate 1 07/08/25 08:05 07/07/25 07/08/25 07/08/25 22:59 06:59 14:59 Intake Total 670 / 1670 500 / 500 Output Total 850 / 850 500 / 1350 Balance -180 / 820 -500 / 320 500 / 500 Weight last 48 hrs Weight 187 lb 6.4 oz Weight 199 lb Physical Exam 2 Narrative: Patient neurovascularly intact left lower extremity. Dressings are clear Data 07/08/25 03:28 07/08/25 03:28 Micro: Microbiology 07/05/25 14:50 Urine Culture - Final Urine,Clean Catch Escherichia coli esbl A&P Assessment and plan 1. Closed fracture of left hip with routine healing, subsequent encounter: Patient is a status post endoprosthetic replacement of the left hip due to a femoral neck fracture. It was discovered at the time of surgery that the fracture went all the way down to the superior aspect of the lesser trochanter therefore we will keep her partial weightbearing at this time to allow bone healing about the surgical site. Plan: Plan at this time is to continue to advance activities with the left hip. She may be partial weightbearing on the side and start walker ambulation. Bed to chair transfers are fine at this time. H&H appears to be stable PDMP PDMP Reviewed: Not Reviewed Attestations 2 Medical Necessity Statement*: Patient in need of further medical monitoring. Patient is also in need of further physical therapy and pain control Coding Level of Care Code 64606 Diagnoses Closed fracture of left hip with routine healing, subsequent encounter S72.002D Encounter type: subsequent encounter Fracture healing: with routine healing
[2025-07-08] MEDS: HYDROcodone-acetaminophen 5-325 mg Tablet 1 TAB PO (14:05)
--- NOTE | 2025-07-08 15:22 | P.PN_ITS ---
Subjective 2 Subjective: Patient was seen this morning, she is alert to person, to place, she follows commands, her sore throat/throat pain has improved, she wants to try to eat something more substantial, cough is improving, we discussed trying her anticoagulant therapy for the next 24 hours, if she tolerates it we will switch her from Xarelto, continue PT OT, continue IV antibiotics for pneumonia, she is in agreement, Vitals/I&O/Wt Last Vital Signs Temp 97.9 F 07/08/25 14:59 Pulse 60 07/08/25 15:03 Resp 26 H 07/08/25 14:00 BP 124/51 07/08/25 14:00 Pulse Ox 92 07/08/25 14:00 O2 Del Method Nasal Cannula 07/08/25 14:00 O2 Flow Rate 1 07/08/25 08:05 07/08/25 07/08/25 07/08/25 06:59 14:59 22:59 Intake Total 750 / 750 Output Total 500 / 1350 Balance -500 / 320 750 / 750 Weight last 48 hrs Weight 85.003 kg Weight 90.265 kg Physical Exam 2 Const: COMMON NORMALS: no acute distress ORIENTATION/CONSCIOUSNESS: Yes awake, Yes oriented to person and Yes oriented to place; not oriented to time Neck/C-Spine: OTHER: Posterior pharynx Left palate, mass significant erythema/swelling has resolved, no significant bleeding, no hematoma, it is now more from the uvula, non kissing Resp: COMMON NORMALS: normal respiratory effort, No retractions, No use of accessory muscles and clear to auscultation bilaterally AUSCULTATION: clear to auscultation bilaterally Cardio: COMMON NORMALS: regular rate, regular rhythm, S1 normal heart sound present and S2 normal heart sound present RATE: regular rate RHYTHM: r egular rhythm HEART SOUNDS: S1 normal heart sound present and S2 normal heart sound present GI: COMMON NORMALS: Normal to inspection, nondistended, normoactive bowel sounds present and non-tender Extremity: NARRATIVE EXTREMITY EXAM: 1+ edema Neuro: SENSORIUM/ORIENTATION: Yes oriented to person, Yes oriented to place and No oriented to time Psych: COMMON NORMALS: mental status grossly normal Data 07/08/25 03:28 07/08/25 03:28 Micro: Microbiology 07/05/25 14:50 Urine Culture - Final Urine,Clean Catch Escherichia coli esbl A&P Assessment and plan 1. Closed fracture of left hip: 2. Acute on chronic combined systolic (congestive) and diastolic (congestive) heart failure: 3. History of CVA in adulthood: 4. Chest pain due to myocardial ischemia: 5. Multi-infarct dementia: 6. Left acute arterial ischemic stroke, MCA (middle cerebral artery): 7. Aphasia as late effect of stroke: 8. Acute hypoxic respiratory failure: 9. Aspiration pneumonia: 10. Fluid overload: 11. Infection due to ESBL-producing Escherichia coli: 12. Squamous cell carcinoma of left tonsil: Plan: #1 Status post mechanical fall with left hip fracture CT left hip CT/CT hip LT wo con* [id number] IMPRESSION: Acute mildly displaced basicervical fracture of the left femoral neck. - Will hold Xarelto due to below - Orthopedics consulted, status post surgical invention - Continue p.o. pain control - Advance to GI soft diet Acute hypoxic respiratory failure secondary to fluid overload, aspiration pneumonia -Monitor respiratory status closely currently on 4 L -IV Lasix today for fluid overload - Continue meropenem Urinary tract infection, with ESBL E. coli UTI - History of ESBL E. coli UTI - Continue IV meropenem - Will need a total of 5 days of ertapenem starting tomorrow Left palatine/tonsillar mass - With edema, hemorrhage, swelling -Possible trauma associated with intubation/extubation CT/CT neck w con* [id number] IMPRESSION: 1. Asymmetric enlargement of the left palatine tonsil with heterogenous enhancement and no abscess or adjacent inflammatory changes. Findings are concerning for underlying neoplasm. Recommend direct visualization/biopsy as clinically indicated. Plan - Transition to GI soft diet - Chloraseptic - Continue Decadron - Monitor clinically - Will try therapeutic Lovenox for 24 hours, if there is no further evidence of bleeding then transition to Xarelto, discussed risk and benefits with the patient, shared decision making, she voiced understanding, all questions answered, agreed to proceed Left thyroid nodule 2. 1.5 cm left thyroid nodule. Recommend further evaluation with dedicated thyroid ultrasound if not previously characterized. 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 coli UTI, fluid overload, aspiration pneumonia Diagnoses Closed fracture of left hip S72.002A Acute on chronic combined systolic (congestive) and diastolic (congestive) heart failure I50.43 History of CVA in adulthood Z86.73 Chest pain due to myocardial ischemia I25.9 Multi-infarct dementia F01.50 Left acute arterial ischemic stroke, MCA (middle cerebral artery) I63.512 Aphasia as late effect of stroke I69.320 Acute hypoxic respiratory failure J96.01 Aspiration pneumonia J69.0 Fluid overload E87.70 Infection due to ESBL-producing Escherichia coli A49.8; Z16.12 Squamous cell carcinoma of left tonsil C09.9
[2025-07-08] MEDS: FUROsemide 10 mg/mL SDV 4mL 40 MG IVP (15:37)
[2025-07-09] MEDS: phenol oral Spray 177 mL 3 SPRAY MUCOUS MEM (01:56)
[2025-07-09 03:21] LABS: Hematocrit 31.8 % (36-47); Hemoglobin 10.00 g/dL (11.27-16.99); Mean Corpuscular HGB Conc 31.4 g/dL (30-55); Mean Corpuscular Hemoglobin 30.7 pg (27-33); Mean Corpuscular Volume 97.5 fl (85-98); Nucleated Red Blood Cells % 0 %; Platelet Count 173 10^3/cmm (157-399); Red Blood Count 3.26 10^6/uL (3.85-5.65); White Blood Count 9.22 10^3/uL (3.29-11.43)
[2025-07-09 03:51] LABS: Anion Gap 10.1 (5-19); Blood Urea Nitrogen 29 mg/dL (8-23); Calcium 9.8 mg/dL (8.5-10.5); Carbon Dioxide 33 mmol/L (22-29); Chloride 100 mmol/L (98-107); Glucose 186 mg/dL (65-115); NT Pro B Type Natriuretic Pept 1144 pg/mL (0-450); Osmolality Calculated 299 mOsm/kg (285-295); Potassium 4.1 mmol/L (3.5-5.1); Sodium 139 mmol/L (136-145)
[2025-07-09 03:54] LABS: Creatinine Clr Calc Pharmacy 50.7246
[2025-07-09 04:00] VITALS: BP 153/81; PULSE 60; RESP 17; TEMP 36.7; O2SAT 91
[2025-07-09 06:00] VITALS: PULSE 60
[2025-07-09 07:43] VITALS: BP 183/69; PULSE 61; RESP 16; TEMP 36.5; O2SAT 91
[2025-07-09] MEDS: multivitamin therapeutic Tablet 1 TAB PO (08:27)
[2025-07-09 08:53] VITALS: PULSE 60; O2SAT 92
--- NOTE | 2025-07-09 09:55 | PC.SOCIAL ---
IMM Update pg 2 of IMM Updated and reviewed w/ patient. Copy provided and copy dated, initialed and placed in chart.
--- NOTE | 2025-07-09 11:33 | PM.DCS ---
Discharge Providers Date of Admission: 07/04/25 22:08 Date of Discharge: July 09, 2025 Attending Provider at Admission: Jessenia Hay MD Attending Provider at Discharge: Meir Nunes MD Primary Care Provider: Home Philip DO Diagnoses at Discharge Discharge Diagnosis 1. Closed fracture of left hip with routine healing, subsequent encounter: 2. Acute on chronic combined systolic (congestive) and diastolic (congestive) heart failure: 3. History of CVA in adulthood: 4. Chest pain due to myocardial ischemia: 5. Multi-infarct dementia: 6. Left acute arterial ischemic stroke, MCA (middle cerebral artery): 7. Aphasia as late effect of stroke: 8. Acute hypoxic respiratory failure: 9. Aspiration pneumonia: 10. Fluid overload: 11. Infection due to ESBL-producing Escherichia coli: 12. Squamous cell carcinoma of left tonsil: Reason for Visit Reason for Visit: 42.1 Hospital Course Hospital Course This is a 79-year-old female with past medical history of prior CVA with expressive aphasia, who presents [facility] for mechanical fall Patient was admitted to [facility] for mechanical fall, status post left hip fracture, received surgical intervention by orthopedic service, will be discharged to resume Xarelto for DVT prophylaxis, follow-up with orthopedic services outpatient Patient's hospitalization was complicated by acute hypoxic respiratory failure postoperatively, secondary fluid overload, aspiration pneumonia, left tonsillar mass - Received IV steroids, IV antibiotics, overall clinically proved - Will be discharged on oxygen therapy - Discharge with resumption of home Lasix - Discharged with meropenem For patient's Left palatine/tonsillar mass - With edema, hemorrhage, swelling -Possible trauma associated with intubation/extubation CT/CT neck w con* [id number] IMPRESSION: 1. Asymmetric enlargement of the left palatine tonsil with heterogenous enhancement and no abscess or adjacent inflammatory changes. Findings are concerning for underlying neoplasm. Recommend direct visualization/biopsy as clinically indicated. -Initially managed with clear includes, Decadron, and clinically monitored -Overall clinically improved, swelling/erythema/hemorrhage significantly improved, resolved, -managed on lovenox for 24 hours, no bleeding/no swelling -will transitioned home xarelto, on discharge, discussed risk and benefits, patient voiced understanding, all question, answered agreed to proceed -patient was advised if she develops sudden onset shortness of breath, difficulty swallowing, call 911 - On discharge able to see the posterior pharynx, left palatine mass, non kissing, significant swelling has resolved, bleeding has resolved, no significant symptomatology -will discharge with a close follow up ENT for biopsy Left thyroid nodule 2. 1.5 cm left thyroid nodule. Recommend further evaluation with dedicated thyroid ultrasound if not previously characterized. - Follow-up with ENT Urinary tract infection, with ESBL E. coli UTI - History of ESBL E. coli UTI -ertapenem 1 gram IV q24h for 4 days Physical Exam Const: COMMON NORMALS: no acute distress ORIENTATION/CONSCIOUSNESS: Yes awake, Yes oriented to person and Yes oriented to place; not oriented to time Neck/C-Spine: OTHER: Posterior pharynx, left tonsillar mass, erythema, swelling, tenderness significantly improved, daughter kissing, posterior pharynx seen no acute abnormalities Resp: COMMON NORMALS: normal respiratory effort, No retractions, No use of accessory muscles and clear to auscultation bilaterally AUSCULTATION: clear to auscultation bilaterally Cardio: COMMON NORMALS: regular rate, regular rhythm, S1 normal heart sound present and S2 normal heart sound present RATE: regular rate RHYTHM: regular rhythm HEART SOUNDS: S1 normal heart sound present and S2 normal heart sound present GI: COMMON NORMALS: Normal to inspection, nondistended, normoactive bowel sounds present and non-tender Extremity: COMMON NORMALS: no pedal edema Neuro: SENSORIUM/ORIENTATION: Yes oriented to person, Yes oriented to place and No oriented to time Discharge Data Studies Completed and Pending Completed Studies During Hospitalization Category Date Time Status CT head wo con* [id number] Stat Cat Scan 07/04/25 21:[address] hip LT wo con* [id number] Stat Cat Scan 07/04/25 21:[address] neck w con* [id number] Stat Cat Scan 07/06/25 17:30 Completed CXRP [XR chest 1V portable [id number]] Stat Exams 07/04/25 20:50 Completed XR ankle LT 1V [id number] Routine Exams 07/05/25 14:45 Completed XR chest 1V portable [id number] Routine Exams 07/06/25 15:05 Completed XR hip LT 2-3V wo/w pel* [id number] Routine Exams 07/06/25 13:54 Completed XR hip LT 2-3V wo/w pel* [id number] Stat Exams 07/04/25 20:50 Completed XR knee LT 1-2V [id number] Routine Exams 07/05/25 14:45 Completed Pending at discharge Category Date Time Status XR pelvis 1-2V* [id number] Routine Exams 07/06/25 15:19 Taken Basic Metabolic Panel AM LABS Lab 07/10/25 04:00 Ordered Basic Metabolic Panel AM LABS Lab 07/11/25 04:00 Ordered Complete Blood Count w/Auto AM LABS Lab 07/10/25 04:00 Ordered Complete Blood Count w/Auto AM LABS Lab 07/11/25 04:00 Ordered Radiology Impressions Head CT 07/04/25 21:15 IMPRESSION: No acute intracranial abnormality. Hip CT 07/04/25 21:15 IMPRESSION: Acute mildly displaced basicervical fracture of the left femoral neck. Ankle X-Ray 07/05/25 14:45 IMPRESSION: No acute osseous abnormality. Knee X-Ray 07/05/25 14:45 IMPRESSION: No acute osseous abnormality. Hip/Pelvis X-Ray 07/06/25 13:54 IMPRESSION: Uncomplicated postoperative appearance of left total hip arthroplasty. Chest X-Ray 07/06/25 15:05 IMPRESSION: Multifocal streaky opacities, differential includes atelectasis, pulmonary edema, infection or aspiration. Neck CT 07/06/25 17:30 IMPRESSION: 1. Asymmetric enlargement of the left palatine tonsil with heterogenous enhancement and no abscess or adjacent inflammatory changes. Findings are concerning for underlying neoplasm. Recommend direct visualization/biopsy as clinically indicated. 2. 1.5 cm left thyroid nodule. Recommend further evaluation with dedicated thyroid ultrasound if not previously characterized. 3. Lung evaluation is suboptimal due to motion, streak artifact from contrast bolus and pacemaker and imaging in partial expiration. Within these limitations, there is apparent multifocal ground-glass opacities. If there is clinical concern for inflammatory or infectious lung disease dedicated chest imaging could be considered. COMMENTS: Consistent with the [employer]'s Incidental Findings Committee white paper (J Am Rosana Radiol 2015): In patients aged 35 years and older with an incidental thyroid nodule equal to or greater than 1.[address], MRI or extrathyroidal US, further evaluation with dedicated thyroid US is recommended for patients with normal life expectancy and without comorbidities. For smaller nodules without suspicious features, no further evaluation or follow up is recommended. Laboratory Results WBC 9.22 10^3/uL (3.29-11.43) 07/09/25 02:14 RBC 3.26 10^6/uL (3.85-5.65) L 07/09/25 02:14 Hgb 10.00 g/dL (11.27-16.99) L 07/09/25 02:14 Hct 31.8 % (36-47) L 07/09/25 02:14 MCV 97.5 fl (85-98) 07/09/25 02:14 MCH 30.7 pg (27-33) 07/09/25 02:14 MCHC 31.4 g/dL (30-55) 07/09/25 02:14 RDW 14.9 % (12.1-15.1) 07/09/25 02:14 Plt Count 173 10^3/cmm (157-399) 07/09/25 02:14 MPV 11.8 fL (7.4-10.4) H 07/09/25 02:14 Neut % (Auto) 79.4 % 07/09/25 02:14 Lymph % (Auto) 8.7 % 07/09/25 02:14 [place] % (Auto) 10.6 % 07/09/25 02:14 Eos % (Auto) 0.4 % 07/09/25 02:14 Baso % (Auto) 0.1 % 07/09/25 02:14 Neut # (Auto) 7.32 10^3/uL (1.8-7.7) 07/09/25 02:14 Lymph # (Auto) 0.8 10^3/uL (0.8-4.8) 07/09/25 02:14 [place] # (Auto) 1.0 10^3/uL (0.2-0.9) H 07/09/25 02:14 Eos # (Auto) 0.0 10^3/uL (0.0-0.8) 07/09/25 02:14 Baso # (Auto) 0.0 10^3/uL (0.0-0.1) 07/09/25 02:14 Nucleated RBC % (auto) 0 % 07/09/25 02:14 Nucleated RBCs # 0.0 /100WBC 07/09/25 02:14 PT 17.50 SECONDS (12.1-14.9) H 07/04/25 21:52 INR 1.34 (0.8-1.2) H 07/04/25 21:52 Sodium 139 mmol/L (136-145) 07/09/25 02:14 Potassium 4.1 mmol/L (3.5-5.1) 07/09/25 02:14 Chloride 100 mmol/L (98-107) 07/09/25 02:14 Carbon Dioxide 33 mmol/L (22-29) H 07/09/25 02:14 Anion Gap 10.1 (5-19) 07/09/25 02:14 BUN 29 mg/dL (8-23) H 07/09/25 02:14 Creatinine 1.0 mg/dL (0.5-0.9) H 07/09/25 02:14 GFR Calculation Not Reportable 07/09/25 02:14 Glucose 186 mg/dL (65-115) H 07/09/25 02:14 POC Glucose 156 mg/dL (70-110) H 07/09/25 06:14 Calculated Osmolality 299 mOsm/kg (285-295) H 07/09/25 02:14 Calcium 9.8 mg/dL (8.5-10.5) 07/09/25 02:14 Phosphorus 3.1 mg/dL (2.5-4.5) 07/05/25 03:09 Magnesium 1.9 mg/dL (1.7-2.3) 07/05/25 03:09 Total Bilirubin 0.4 mg/dL (0.15-1.2) 07/08/25 03:28 AST 33 U/L (0-32) H 07/08/25 03:28 ALT 35 U/L (0-33) H 07/08/25 03:28 Alkaline Phosphatase 86 U/L (35-105) 07/08/25 03:28 NT-Pro-B Natriuret Pep 1144 pg/mL (0-450) H 07/09/25 02:14 Total Protein 5.8 g/dL (6.6-8.7) L 07/08/25 03:28 Albumin 3.0 g/dL (3.5-5.2) L 07/08/25 03:28 Globulin 2.8 g/dL (1.3-4.6) 07/08/25 03:28 Urine Color Yellow (Yellow) 07/05/25 14:50 Urine Appearance Cloudy (CLEAR) A 07/05/25 14:50 Urine pH 5.5 (5-7) 07/05/25 14:50 Ur Specific [place] 1.018 (1.005-1.030) 07/05/25 14:50 Urine Protein Negative (Negative) 07/05/25 14:50 Urine Glucose (UA) Negative (Normal) 07/05/25 14:50 Urine Ketones Negative (Negative) 07/05/25 14:50 Urine Blood 3+ (Negative) A 07/05/25 14:50 Urine Nitrate Positive (Negative) A 07/05/25 14:50 Urine Bilirubin Negative (Negative) 07/05/25 14:50 Urine Urobilinogen 0.2 mg/dL (Negative) 07/05/25 14:50 Ur Leukocyte Esterase 1+ (Negative) A 07/05/25 14:50 Urine RBC >100 /hpf (0-2) H 07/05/25 14:50 Urine WBC 6-10 /hpf (0-5) 07/05/25 14:50 Ur Squamous Epith Cells 0-5 /hpf (0-5) 07/05/25 14:50 Amorphous Sediment Not Reportable 07/05/25 14:50 Urine Bacteria 4+ /hpf (NONE) H 07/05/25 14:50 Hyaline Casts 3.30 /lpf 07/05/25 14:50 Vitals Last Vital Signs Temp 97.7 F 07/09/25 07:43 Pulse 60 07/09/25 08:53 Resp 16 07/09/25 07:43 BP 183/69 07/09/25 07:43 Pulse Ox 92 07/09/25 08:53 O2 Del Method Nasal Cannula 07/09/25 08:53 O2 Flow Rate 1.5 07/09/25 08:53 Discharge Plan Discharge Patient Disposition: Xfer SNF Condition: Stable Prescriptions: New insulin lispro [Humalog U-100 Insulin] 100 unit/mL Solution See Rx Instructions .ROUTE .COMPLEX Qty: 10 0RF Rx Instructions: Inject, subcut, 3 times daily, after meals, based on low-dose insulin sliding scale cholecalciferol (vitamin D3) 25 mcg (1,000 unit) Tablet 1,000 unit PO DAILY 30 Days Qty: 30 0RF hydrocodone-acetaminophen 5-325 mg Tablet 1 tab PO Q6H PRN (Reason: Moderate Pain) 5 Days Qty: 20 0RF ertapenem 1 gram recon soln 1 g IV DAILY 4 Days prednisone 20 mg tablet 20 mg PO BID 5 Days Qty: 10 0RF Continued ondansetron HCl 4 mg tablet 4 mg PO Q4H PRN (Reason: Nausea And Vomiting) pantoprazole 40 mg tablet,delayed release (DR/EC) 40 mg PO QAM aspirin [Adult Low Dose Aspirin] 81 mg tablet,delayed release (DR/EC) 81 mg PO DAILY@0800 Qty: 60 0RF Culturelle 10 billion cell Capsule 1 cap PO BID docusate sodium 100 mg Capsule 100 mg PO BID alum-mag hydroxide-simeth 200-200-20 mg/5 mL Suspension 10 ml PO Q4H PRN (Reason: Indigestion) Rx Instructions: administer between meals and at bedtime levothyroxine 112 mcg Tablet 112 mcg PO DAILY Qty: 30 0RF magnesium hydroxide [Milk of Magnesia] 400 mg/5 mL Suspension 30 ml PO DAILY PRN (Reason: Constipation) atorvastatin 80 mg tablet 80 mg PO BEDTIME acetaminophen 325 mg Tablet 325 mg PO Q4H PRN (Reason: pain or fever) metoprolol tartrate 100 mg tablet 100 mg PO BID amiodarone 400 mg Tablet 400 mg PO DAILY levetiracetam 750 mg tablet 750 mg PO Q12H trazodone 50 mg Tablet 25 mg PO BEDTIME magnesium oxide 400 mg (241.3 mg magnesium) Tablet 400 mg PO DAILY Qty: 30 0RF nitroglycerin 0.4 mg Tablet, Sublingual 0.4 mg sublingual Q5M PRN (Reason: Chest Pain) Qty: 20 0RF isosorbide mononitrate 30 mg Tablet Extended Release 24 Hr 30 mg PO DAILY Qty: 30 0RF furosemide 20 mg Tablet 20 mg PO DAILY@0800 Qty: 30 0RF Changed Xarelto 20 mg tablet 20 mg PO QPM 30 Days Qty: 30 0RF Held Entresto 49-51 mg tablet 1 tab PO BID Qty: 60 3RF Hold Instructions: Resume on 07/16/25. Hold until you see primary care Discontinued acetaminophen 500 mg Tablet 500 mg PO BID PRN (Reason: Pain) nitrofurantoin monohyd/m-cryst 100 mg capsule 100 mg PO BID bisacodyl [Dulcolax (bisacodyl)] 10 mg Suppository 10 mg MI DAILY PRN (Reason: Constipation) Referrals: [facility] [Outside] Catarino Roberto MD [Physician, Ear, Nose, Throat] - 1-3 days Referral Note: left tonsillar mass Home Philip, DO [Primary Care Provider, Internal Medicine] Discharge Diet: GI Soft Discharge Activity: Resume usual activity Patient Instructions: Prednisone (By mouth), Ertapenem (By injection), Acute Wound Care (DC), Opioid Safety, Post Anesthesia Care, Patient Portal & Roman Instructions Activity Restrictions/Additional Instructions: -Please monitor your blood sugars closely -Monitor your blood sugars 3 times daily as after meals -Please record your blood sugars, and a blood sugar log -For your NovoLog -Please inject blood sugar after meals based on sliding scale provided -Do not inject insulin if you do not eat as hypoglycemia kills -This is a NovoLog sliding scale -Insulin sliding ?fingerstick? Insulin ?141-180?0 units/sq 181-220?2 units/sq ?221-260?4 units/sq ?261-300 6 units/sq ?301-350?8 units/sq ?351-400 10 units/sq ?401-450?12 units/sq >450? 14units/sq -If your blood sugar is greater than 500 go to the emergency room -If your blood sugar is less than 60 or at anytime you feel lightheaded or dizzy or diaphoretic or have chest palpitations check your blood sugar, and eat a hard candy or drink orange juice and go immediately to the emergency room -Remember hypoglycemia kills, so if his blood sugar is less than 60 we have to increase it by taking in a sugary meal such as a hard candy or orange juice and go to the emergency room -If you have any questions please call us where here to help - For left tonsillar mass, please continue to adhere to GI soft diet, cool liquids, steroid burst -If send onset difficulty swallowing or shortness of breath please go to the emergency room - Please follow-up with Dr. Roberto - Continue meropenem 1 g IV every 24 hours for 4 days - Continue PT OT Discharge Attestations Time Spent in Discharge Care*: greater than 30 min Status at Discharge: Cognitive status at discharge: cognitively intact, Behavioral status at discharge: cooperative, Quality Metrics Clinical Quality Measures [ No reported AMI, CVA or VTE this stay] Coding Level of Care Code 82768 Total time (in minutes) for Discharge: 45 Diagnoses Closed fracture of left hip with routine healing, subsequent encounter S72.002D Encounter type: subsequent encounter Fracture healing: with routine healing Acute on chronic combined systolic (congestive) and diastolic (congestive) heart failure I50.43 History of CVA in adulthood Z86.73 Chest pain due to myocardial ischemia I25.9 Multi-infarct dementia F01.50 Left acute arterial ischemic stroke, MCA (middle cerebral artery) I63.512 Aphasia as late effect of stroke I69.320 Acute hypoxic respiratory failure J96.01 Aspiration pneumonia J69.0 Fluid overload E87.70 Infection due to ESBL-producing Escherichia coli A49.8; Z16.12 Squamous cell carcinoma of left tonsil C09.9
[2025-07-09 12:00] VITALS: BP 170/73; PULSE 60; RESP 17; TEMP 36.6; O2SAT 92
--- NOTE | 2025-07-09 13:25 | PC.NURSE ---
Report: Attempted twice to call report to [facility]. Will attempt to call report again.
--- NOTE | 2025-07-09 13:57 | PC.NURSE ---
Report: 3rd attempt to call report to [facility]
--- NOTE | 2025-07-09 14:40 | PC.NURSE ---
Report: Report called to [facility]
[2025-07-09 14:55] VITALS: BP 170/73; PULSE 60; RESP 17; TEMP 36.6; O2SAT 92
== END 2025-07-09 15:00 | disposition skilled nursing facility (03) | DRG 480 ==
LOC: ER 22:20 → MEDSURG 22:30 → ICU 07-06 13:35 → MEDSURG 07-08 21:09
PROVIDERS: Orthopaedic Surgery; Admitting Provider Internal Medicine; Emergency Provider Emergency Medicine; PCP Internal Medicine; Visit Provider Family Medicine
PROC: 0QR70JZ Replacement of Left Upper Femur with Synthetic Substitute, Open Approach (ICD-10-PCS; principal; 2025-07-06 12:00)
DX: S72.002A Fracture of unspecified part of neck of left femur, initial encounter for closed fracture (principal); I50.43 Acute on chronic combined systolic (congestive) and diastolic (congestive) heart failure; J95.821 Acute postprocedural respiratory failure; J69.0 Pneumonitis due to inhalation of food and vomit; N39.0 Urinary tract infection, site not specified; Z16.12 Extended spectrum beta lactamase (ESBL) resistance; W19.XXXA Unspecified fall, initial encounter; I11.0 Hypertensive heart disease with heart failure; I25.9 Chronic ischemic heart disease, unspecified; F03.90 Unspecified dementia, unspecified severity, without behavioral disturbance, psychotic disturbance, mood disturbance, and anxiety; I69.920 Aphasia following unspecified cerebrovascular disease; J35.9 Chronic disease of tonsils and adenoids, unspecified; B96.20 Unspecified Escherichia coli [E. coli] as the cause of diseases classified elsewhere; E04.1 Nontoxic single thyroid nodule; E86.0 Dehydration; E11.9 Type 2 diabetes mellitus without complications; G47.33 Obstructive sleep apnea (adult) (pediatric); I48.91 Unspecified atrial fibrillation; E03.9 Hypothyroidism, unspecified; K21.9 Gastro-esophageal reflux disease without esophagitis; E78.5 Hyperlipidemia, unspecified; Z87.891 Personal history of nicotine dependence; Z79.82 Long term (current) use of aspirin; Z79.01 Long term (current) use of anticoagulants
CPT/HCPCS: 36415; 36416; 70450; 70491; 71045; 72170; 73502; 73560; 73600; 73700; 80048; 80053; 81001; 82962; 83735; 83880; 84100; 85025; 85610; 87077; 87086; 87186; 92523; 92610; 93005; 96365; 96372; 97110; 97116; 97161; 97165; 97530; 99285; C1776; J1100; J1171; J1650; J1815; J1885; J1938; J2185; J2270; J2704; J3010; J3490; J7030; J9999

== ENCOUNTER → 2025-07-23 11:42 | Outpatient (BNVA) | payer MEDICARE, OTHER, MEDICAID, SELFPAY | PROVIDERS: PCP Internal Medicine; Visit Provider Orthopaedic Surgery | DX: S72.002D Fracture of unspecified part of neck of left femur, subsequent encounter for closed fracture with routine healing (principal); X58.XXXD Exposure to other specified factors, subsequent encounter | CPT/HCPCS: 73502; 99024 ==

== ENCOUNTER → 2025-07-26 13:55 | Outpatient (BNVA) | payer MEDICARE, OTHER, MEDICAID, SELFPAY | PROVIDERS: PCP Internal Medicine; Visit Provider Orthopaedic Surgery | DX: S72.002D Fracture of unspecified part of neck of left femur, subsequent encounter for closed fracture with routine healing (principal); X58.XXXD Exposure to other specified factors, subsequent encounter | CPT/HCPCS: 73502; 99024 ==

== ENCOUNTER → 2025-08-06 10:26 | Outpatient (BNVA) | payer MEDICARE, OTHER, MEDICAID, SELFPAY | PROVIDERS: PCP Internal Medicine; Visit Provider Orthopaedic Surgery | DX: S72.002D Fracture of unspecified part of neck of left femur, subsequent encounter for closed fracture with routine healing (principal); X58.XXXD Exposure to other specified factors, subsequent encounter | CPT/HCPCS: 99024 ==

== ENCOUNTER → 2025-09-28 09:56 | Outpatient (BNVA) | payer MEDICARE, OTHER, MEDICAID, SELFPAY | PROVIDERS: PCP Internal Medicine; Visit Provider Internal Medicine Cardiovascular Disease | DX: I11.0 Hypertensive heart disease with heart failure (principal); I50.43 Acute on chronic combined systolic (congestive) and diastolic (congestive) heart failure; I48.0 Paroxysmal atrial fibrillation; Z87.891 Personal history of nicotine dependence | CPT/HCPCS: 99214 ==

== ENCOUNTER → 2025-10-22 11:24 | Outpatient (BNVA) | payer MEDICARE, OTHER, MEDICAID, SELFPAY | PROVIDERS: PCP Internal Medicine; Visit Provider Orthopaedic Surgery | DX: S72.002D Fracture of unspecified part of neck of left femur, subsequent encounter for closed fracture with routine healing (principal); X58.XXXD Exposure to other specified factors, subsequent encounter; M25.562 Pain in left knee; G89.29 Other chronic pain | CPT/HCPCS: 20610; 73502; 73560; 73565; 99214; J3301; J3490; J9999 ==